=== PATIENT | female | born 1950 | race Caucasian/White ===

== ENCOUNTER → 2016-05-22 | Outpatient (CLI) | payer BC ==
[2016-05-22 16:58] LABS: ALT 174 U/L (9-52); AST 139 U/L (14-36); Alkaline Phosphatase 97 U/L (38-126); Anion Gap 14 mmol/L; Blood Urea Nitrogen 17 mg/dL (7-17); Calcium 9.4 mg/dL (8.4-10.2); Carbon Dioxide 27 mmol/L (22-30); Chloride 101 mmol/L (98-107); Glucose 109 mg/dL (74-99); Non-African American GFR(MDRD) >60 (>60 ml/min/1.73 sqM); Potassium 4.5 mmol/L (3.5-5.1); Sodium 142 mmol/L (137-145); Total Bilirubin 0.7 mg/dL (0.2-1.3); Total Protein 7.9 g/dL (6.3-8.2)
== END | disposition home or self-care (01) ==
LOC: LABWHC1 16:21
PROVIDERS: ATTEND Internal Medicine Gastroenterology
DX: R94.5 Abnormal results of liver function studies (principal)
CPT/HCPCS: 36415; 80053

== ENCOUNTER → 2016-08-19 | Outpatient (CLI) | payer BC ==
[2016-08-19 11:20] LABS: ALT 82 U/L (9-52); AST 70 U/L (14-36); Alkaline Phosphatase 79 U/L (38-126); Anion Gap 12 mmol/L; Blood Urea Nitrogen 12 mg/dL (7-17); Calcium 9.3 mg/dL (8.4-10.2); Carbon Dioxide 29 mmol/L (22-30); Chloride 102 mmol/L (98-107); Glucose 152 mg/dL (74-99); Non-African American GFR(MDRD) >60 (>60 ml/min/1.73 sqM); Potassium 4.3 mmol/L (3.5-5.1); Sodium 143 mmol/L (137-145); Total Bilirubin 0.8 mg/dL (0.2-1.3)
== END ==
LOC: LABWHC1 10:21
PROVIDERS: ATTEND Internal Medicine Gastroenterology
DX: R94.5 Abnormal results of liver function studies (principal)
CPT/HCPCS: 36415; 80053

== ENCOUNTER → 2016-11-30 | Outpatient (CLI) | payer BC ==
--- NOTE | 2016-11-30 10:27 | BD ---
EXAMINATION TYPE: MG DEXA axial skeleton. DATE OF EXAM: 11/30/2016 COMPARISON: Previous study dated 12/27/2014. CLINICAL HISTORY: Postmenopausal female. Height: 64 IN Weight: 195 LBS FRAX RISK QUESTIONS: Alcohol (3 or more units per day): NO Family History (Parent hip fracture): NO Glucocorticoids (More than 3mos): NO (Ex: prednisone, prednisolone, methylprednisolone, dexamethasone, and hydrocortisone). History of Fracture in Adulthood: NO Secondary Osteoporosis: 1. Type 1 Diabetes: NO 2. Hyperthyroidism: NO 3. Menopause before 45: NO 4. Malnutrition: NO 5. Chronic liver disease: NO Rheumatoid Arthritis: NO Current Tobacco Use: NO RISK FACTORS HISTORY OF: Active: YES Postmenopausal woman: AGE 49 Take estrogen and/or progesterone medications: NOT NOW How long: CONTROL AGE 18 - 25 MEDICATIONS: Additional Medications: CALCIUM, VIT D, HIGH BLOOD PRESSURE MEDS, EFFEXOR, Additional History: BREAST CANCER WITH RADIATION EXAM MEASUREMENTS: Bone mineral densitometry was performed using the [employer] System. Bone mineral density as measured about the Lumbar spine is: ----- L1-L4(G/cm2): 1.319 T Score Values are as follows: ----- L2: 1.5 ----- L3: 0.8 ----- L4: 1.5 ----- L1-L4: 1.2 Bone mineral density has: Decreased -0.1% since study of: 12/27/2014 Bone mineral density about the R hip (g/cm2): 0.898 Bone mineral density about the L hip (g/cm2): 0.871 T Score values are as follows: -----R Neck: -1.0 -----L Neck: -1.2 -----R Total: -0.3 -----L Total: -0.3 Bone mineral density has: Decreased -2.0% since study of: 12/27/2014 IMPRESSION: OSTEOPENIA. 10 YEAR FRACTURE RISK: MAJOR OSTEOPOROTIC FRACTURE RISK: 7.8% HIP FRACTURE RISK: 0.6% NOTE: T-SCORE=SD OF THE YOUNG ADULT MEAN.
== END | disposition home or self-care (01) ==
LOC: RADBDWWP 09:19
PROVIDERS: ATTEND Internal Medicine Hematology & Oncology
DX: M85.80 Other specified disorders of bone density and structure, unspecified site (principal); C50.211 Malignant neoplasm of upper-inner quadrant of right female breast; N95.1 Menopausal and female climacteric states; Z79.890 Hormone replacement therapy
CPT/HCPCS: 77080

== ENCOUNTER → 2018-03-01 | Outpatient (CLI) | payer MEDICARE, BC ==
--- NOTE | 2018-03-01 09:55 | MM ---
Reason for exam: additional evaluation requested from prior study. Last mammogram was performed 1 year and 10 months ago. History: Patient is postmenopausal and has history of breast cancer at age 60. Family history of premenopausal breast cancer in sister at age 50. Ultrasound-guided core biopsy of the right breast, February 09, 2011. Lumpectomy of the right breast, 2010. Radiation therapy of the right breast, 2010. Took antineoplastic for 5 years beginning at age 60. Physical Findings: Nurse did not find any significant physical abnormalities on exam. MG 3D Diag Mammo W/Cad PATRICE Bilateral CC and MLO view(s) were taken. Prior study comparison: April 29, 2016, mammogram, performed at [facility]. April 16, 2015, mammogram, performed at [facility]. April 10, 2014, mammogram, performed at [facility]. There are scattered fibroglandular densities. No suspicious abnormality. Post therapy change on the right. No significant new findings when compared with previous films. These results were verbally communicated with the patient and result sheet given to the patient on 03/01/18. ASSESSMENT: Benign, BI-RAD 2 RECOMMENDATION: Follow-up diagnostic mammogram of both breasts in 1 year.
== END | disposition home or self-care (01) ==
LOC: RADMAMWWP 08:52
PROVIDERS: ATTEND Internal Medicine
DX: C50.919 Malignant neoplasm of unspecified site of unspecified female breast (principal)
CPT/HCPCS: 77066; G0279; 77062

== ENCOUNTER → 2019-03-31 | Outpatient (CLI) | payer MEDICARE, BC ==
--- NOTE | 2019-03-31 15:32 | CT ---
EXAMINATION TYPE: CT ChestAbdPelvis w con DATE OF EXAM: 03/31/2019 COMPARISON: CT urogram dated 11/20/2015 HISTORY: Breast cancer. CT DLP: 1892.3 mGycm. Automated Exposure Control for Dose Reduction was Utilized. CONTRAST: CT scan of the thorax, abdomen and pelvis is performed with IV Contrast, patient injected with 100 mL of Isovue M300. FINDINGS: LUNGS: Curvilinear subpleural fibrosis of the peripheral anterolateral right upper lobe is likely pos t radiation change. There is a left lower lobe 4 mm solid pulmonary nodule on series 4 image 36. Ther e is no pleural effusion or pneumothorax seen. The tracheobronchial tree is patent. MEDIASTINUM: There are no greater than 1 cm hilar or mediastinal lymph nodes. No pericardial effusi on is seen. Coronary artery stent is seen. OTHER: There are numerous pathologically enlarged left axillary lymph nodes and subpectoral lymph nod es. The largest measures 4.4 x 3.2 cm. Mildly enlarged submental lymph node is also seen measuring 1. 5 cm. No pathologically enlarged right axillary lymph nodes nor internal mammary lymph nodes. Post th erapy changes of the right breast are seen. LIVER/GB: There is a lobulated contour the liver. Cholecystectomy clips are seen. PANCREAS: Mild pancreatic atrophy. SPLEEN: The spleen is markedly enlarged measuring 22.2 cm in craniocaudal dimension. Splenic varices are seen as well as central mesenteric varices. ADRENALS: No significant abnormality is seen. KIDNEYS: The enlarged spleen displaces the left kidney inferiorly. Delayed images demonstrate numerou s bilateral renal sinus cysts. BOWEL: No dilated large or small bowel. Numerous colonic diverticula are seen without pericolonic fa t stranding. LYMPH NODES: There are abnormal lymph nodes throughout the abdomen and pelvis. Some of the largest ar e seen in the external iliac chain such as on series 3 image 105 on the left measuring 2.6 x 2.6 cm o n the right measuring 3.7 x 1.7 cm. Shotty periaortic lymph nodes are also seen. Pericaval lymph node measures 1.2 cm in short axis. Retrocaval lymph node measures 8 mm on image 83. Left perinephric lym ph node measures 2.7 x 1.1 cm on image 90. External iliac chain adenopathy is also seen measuring up to 3.3 x 2.1 cm on the left and 2.5 x 1.4 cm on the right. OSSEOUS STRUCTURES: Mild diffuse osseous demineralization. Nonspecific sclerotic focus of the left fe moral head on image 116 likely relates to benign bone island. Multilevel degenerative changes of the spine are moderate. OTHER: Pelvic floor relaxation is seen. Uterus appears surgically absent. And mild within the pelvis is likely physiologic in nature. IMPRESSION: 1. Findings are concerning for lymphoma with markedly abnormal left axillary adenopathy, intra-abdomi nal adenopathy, pelvic adenopathy and superficial inguinal adenopathy as well as enlarged submental l ymph node. 2. Marked splenomegaly displacing the left kidney with the spleen measuring 22.2 cm. 3. Solitary left basilar 4 mm solid pulmonary nodule, low suspicion at this time.
== END | disposition home or self-care (01) ==
LOC: RADCTMAIN 12:23
PROVIDERS: ATTEND Internal Medicine Hematology & Oncology
DX: R16.1 Splenomegaly, not elsewhere classified (principal); R59.0 Localized enlarged lymph nodes; Z88.0 Allergy status to penicillin; C50.211 Malignant neoplasm of upper-inner quadrant of right female breast
CPT/HCPCS: 82565; 84520; 71260; 74177; 36415; Q9967 ×2

== ENCOUNTER → 2019-04-10 | Outpatient (CLI) | payer MEDICARE, BC ==
--- NOTE | 2019-04-11 08:08 | MM ---
Reason for exam: additional evaluation requested from prior study. Last mammogram was performed 1 year and 1 month ago. History: Patient is postmenopausal and has history of breast cancer at age 60. Family history of premenopausal breast cancer in sister at age 50. Ultrasound-guided core biopsy of the right breast, February 09, 2011. Lumpectomy of the right breast, 2010. Radiation therapy of the right breast, 2010. Took antineoplastic for 5 years beginning at age 60. Physical Findings: Nurse did not find any significant physical abnormalities on exam. MG 3D Diag Mammo W/Cad PATRICE Bilateral CC and MLO view(s) were taken. Prior study comparison: March 01, 2018, bilateral MG 3d diag mammo w/cad PATRICE. April 29, 2016, mammogram, performed at [facility]. The breast tissue is heterogeneously dense. This may lower the sensitivity of mammography. Finding: There is decreased size and architectural distortion in the right breast consistent with known lumpectomy changes. Previous mammotome biopsy in the left breast. Left axillary abnormal adenopathy correlates with CT 03/31/19. These results were verbally communicated with the patient and result sheet given to the patient on 04/10/19. ASSESSMENT: Highly suggestive of malignancy, BI-RAD 5 Benign, BI-RAD 2 finding in the right breast. Left breast finding is highly suggestive of malignancy, BI-RAD 5. (Left axilla, suspect lymphoma) RECOMMENDATION: Ultrasound core biopsy of the left breast. (Left axilla or other lymph node) Called Dr. Gaffney and Dr. Smith's office with mammographic findings. Patient having biopsy of right neck lymph node on 04/12/19. Dr. Smith aware of multiple enlarged lymph node enlargments. PRELIMINARY REPORT CALLED AND FAXED TO DR. SMITH ON 04/11/19. Follow-up diagnostic mammogram of both breasts in 1 year.
== END | disposition home or self-care (01) ==
LOC: RADMAMWWP 09:54
PROVIDERS: ATTEND Internal Medicine
DX: R92.8 Other abnormal and inconclusive findings on diagnostic imaging of breast (principal); Z85.3 Personal history of malignant neoplasm of breast
CPT/HCPCS: 77066; G0279; 77062

== ENCOUNTER → 2019-04-11 | Outpatient (CLI) | payer MEDICARE, BC ==
--- NOTE | 2019-04-11 10:53 | BD ---
EXAMINATION TYPE: Axial Bone Density DATE OF EXAM: 04/11/2019 COMPARISON: 2017 CLINICAL HISTORY: Personal history of breast cancer. Height: 64 Weight: 205 FRAX RISK QUESTIONS: Alcohol (3 or more units per day): no Family History (Parent hip fracture): no Glucocorticoids (More than 3mos): no (Ex: prednisone, prednisolone, methylprednisolone, dexamethasone, and hydrocortisone). History of Fracture in Adulthood: no Secondary Osteoporosis: 1. Type 1 Diabetes: no 2. Hyperthyroidism: no 3. Menopause before 45: no 4. Malnutrition: no 5. Chronic liver disease: no Rheumatoid Arthritis: no Current Tobacco Use: no RISK FACTORS HISTORY OF: Family History of Osteoporosis: unsure Active: yes Diet low in dairy products/other sources of calcium: no Postmenopausal woman: yes Take estrogen and/or progesterone medications: not now How long: hormonal contraceptives over 5 years Lost more than 2 inches in height since high school: no Frequent falls: no Poor Health: no Hyperparathyroidism: no Adrenal Insufficiency: no MEDICATIONS: Prednisone or other steroids: no Thyroid Medications: yes Which medication: Levothyroxine How Long: one year Osteoporosis Medications: no Additional Medications: blood pressure med , Vitamin D, Metformin Additional History: Breast CA with Radiation, bilateral knee replacements, took Arimidex for about 5 years EXAM MEASUREMENTS: Bone mineral densitometry was performed using the [employer] System. Bone mineral density as measured about the Lumbar spine is: ----- L1-L4(G/cm2): 1.375 T Score Values are as follows: ----- L2: 1.5 ----- L3: 1.3 ----- L4: 2.3 ----- L1-L4: 1.6 Bone mineral density has: Increased 4.4% since study of: 11/30/2016 Bone mineral density about the R hip (g/cm2): 0.964 Bone mineral density about the L hip (g/cm2): 0.856 T Score values are as follows: -----R Neck: -0.5 -----L Neck: -1.3 -----R Total: 0.2 -----L Total: -0.2 Bone mineral density has: Increased 4.0% since study of: 11/30/2016 IMPRESSION: Osteopenia (T Score between -2.5 and -1) remains present femoral neck level left hip. There remains slightly increased risk of fracture and the patient may be considered for treatment. Re-Screen 2-5 years. NOTE: T-SCORE=SD OF THE YOUNG ADULT MEAN.
== END | disposition home or self-care (01) ==
LOC: RADBDWWP 10:13
PROVIDERS: ATTEND Internal Medicine
DX: M85.88 Other specified disorders of bone density and structure, other site (principal)
CPT/HCPCS: 77080

== ENCOUNTER 2019-04-12 09:03 | Day surgery (SDC) | payer MEDICARE, BC ==
[2019-04-12 09:32] VITALS: RESP 16; TEMP 98.2
[2019-04-12 10:54] VITALS: BP 112/66; PULSE 95
--- NOTE | 2019-04-12 10:58 | US ---
ULTRASOUND GUIDED CORE BIOPSY RIGHT SUPRACLAVICULAR LYMPH NODE: CLINICAL HISTORY: Right supraclavicular lymph node FINDINGS: The procedure was explained to the patient. The risks, complications, benefits and alternatives were discussed and any questions were answered. Informed consent was obtained. Patient was placed supin e on the ultrasound table and prepped and draped in the usual sterile fashion. Utilizing a 18 gauge needle, 3 passes were made into the right supraclavicular lymph node. Patient was stable throughout the procedure. Pathology is pending. All elements of maximal barrier technique were utilized. IMPRESSION: 1. Successful ultrasound guided core biopsy right supraclavicular lymph node.
== END 2019-04-12 10:40 | disposition home or self-care (01) ==
LOC: RADPROMAIN 09:03
PROVIDERS: ATTEND Internal Medicine Hematology & Oncology
DX: R59.0 Localized enlarged lymph nodes (principal); R89.7 Abnormal histological findings in specimens from other organs, systems and tissues; C50.919 Malignant neoplasm of unspecified site of unspecified female breast; C80.1 Malignant (primary) neoplasm, unspecified
CPT/HCPCS: 38505; 76942; 88305; 88341; 88342

== ENCOUNTER 2019-04-19 11:52 | Inpatient (IN) | payer MEDICARE, BC ==
[2019-04-19] MEDS ORDERED: IBUPROFEN 600 MG TAB PO STA (12:00)
[2019-04-19] MEDS ORDERED: ACETAMINOPHEN TAB 500 MG TAB PO STA (12:00)
--- NOTE | 2019-04-19 12:03 | ED ---
General Adult HPI - General Chief complaint: Weakness Stated complaint: weakness Time Seen by Provider: 04/19/19 11:55 Source: EMS, RN notes reviewed, old records reviewed Mode of arrival: EMS Limitations: no limitations - History of Present Illness Initial comments: This is a 68-year-old female who presents emergency Department with a recent diagnosis of lymphoma. Patient states she was told to lymphoma yesterday. Patient states she's becoming weaker and weaker over the last 2 weeks but today he wishes to the point where she felt she needed to come to the emergency department. Patient denies any falling. Patient denies any lightheadedness or dizziness. Patient denies any shortness of breath or difficulty breathing. Patient denies any known fever chills per patient denies abdominal pain patient denies nausea vomiting or diarrhea. Patient denies any dysuria hematuria urinary frequency. Patient's only complaint is generalized weakness. states that his is been putting off the visit to the emergency department. - Related Data Home Medications Medication Instructions Recorded Confirmed amLODIPine BESYLATE/BENAZEPRIL 1 cap PO DAILY 10/09/13 04/19/19 [Lotrel 5-40 mg Capsule] Levothyroxine Sodium [Levoxyl] 50 mcg PO DAILY 04/03/19 04/19/19 Rosuvastatin Calcium [Crestor] 5 mg PO DAILY 04/03/19 04/19/19 metFORMIN HCL [Glucophage] 500 mg PO BID 04/03/19 04/19/19 Ibuprofen [Motrin] 800 mg PO TID 04/19/19 04/19/19 Venlafaxine HCl [Effexor] 75 mg PO DAILY 04/19/19 04/19/19 Allergies Allergy/AdvReac Type Severity Reaction Status Date / Time Penicillins Allergy Unknown Rash/Hives Verified 04/19/19 13:06 Review of Systems ROS Statement: Those systems with pertinent positive or pertinent negative responses have been documented in the HPI. ROS Other: All systems not noted in ROS Statement are negative. Past Medical History Past Medical History: Cancer, Diabetes Mellitus, Hyperlipidemia, Hypertension, Thyroid Disorder Additional Past Medical History / Comment(s): right breast CA, lymphoma History of Any Multi-Drug Resistant Organisms: None Reported Past Surgical History: Section, Hysterectomy Additional Past Surgical History / Comment(s): right breast lumpectomy Past Anesthesia/Blood Transfusion Reactions: No Reported Reaction Past Psychological History: No Psychological Hx Reported Smoking Status: Never smoker Past Alcohol Use History: Rare Past Drug Use History: None Reported - Past Family History Father Family Medical History: Myocardial Infarction (VT) Additional Family Medical History / Comment(s): VT times 2, age 52 General Exam - General Exam Comments Initial Comments: GENERAL: Patient is well-developed and well-nourished. Patient is nontoxic and well- hydrated and is in mild distress. ENT: Neck is soft and supple. No significant lymphadenopathy is noted. Oropharynx is clear. Moist mucous membranes. Neck has full range of motion without eliciting any pain. EYES: The sclera were anicteric and conjunctiva were pink and moist. Extraocular movements were intact and pupils were equal round and reactive to light. Eyelids were unremarkable. PULMONARY: Unlabored respirations. Good breath sounds bilaterally. No audible rales rhonchi or wheezing was noted. CARDIOVASCULAR: There is a regular rate and rhythm without any murmurs gallops or rubs. ABDOMEN: Soft and nontender with normal bowel sounds. No palpable organomegaly was noted. There is no palpable pulsatile mass. SKIN: Patient's skin is pale. NEUROLOGIC: Patient is alert and oriented x3. Cranial nerves II through XII are grossly intact. Motor and sensory are also intact. Normal speech, volume and content. Symmetrical smile. MUSCULOSKELETAL: Normal extremities with adequate strength and full range of motion. No lower extremity swelling or edema. No calf tenderness. LYMPHATICS: No significant lymphadenopathy is noted PSYCHIATRIC: Normal psychiatric evaluation. Limitations: no limitations Course Vital Signs 04/19/19 04/19/19 04/19/19 11:54 12:00 12:30 Temperature 99.6 F Pulse Rate 109 H 100 106 H Respiratory 16 20 26 H Rate Blood Pressure 91/34 91/34 104/51 O2 Sat by Pulse 99 98 99 Oximetry 04/19/19 13:17 Temperature 98.5 F Pulse Rate Respiratory Rate Blood Pressure O2 Sat by Pulse Oximetry Medical Decision Making - Medical Decision Making EKG shows sinus tachycardia at [address] interval 154 QRS is 82 QT interval 02 QTC is 43. Patient's EKG shows no ST segment elevation or depression or T wave abnormalities are noted. Chest x-ray shows no acute abnormality. Patient had an elevated lactic acid 4.3 no infection was found and is thought to be secondary to poor perfusion because of the low hemoglobin. I spoke with Dr. Gaffney he agreed to admit the patient admitted the patient wrote admitting orders. I did CBCs every 6 hours and I gave the patient 2 units of packed red blood cells. - Lab Data Result diagrams: 04/19/19 12:10 04/19/19 12:10 Lab Results 04/19/19 04/19/19 04/19/19 Range/Units 12:10 12:10 12:10 WBC 4.5 (3.8-10.6) k/uL RBC 1.67 L (3.80-5.40) m/uL Hgb 5.3 L* (11.4-16.0) gm/dL Hct 16.3 L* (34.0-46.0) % MCV 97.5 (80.0-100.0) fL MCH 31.9 (25.0-35.0) pg MCHC 32.8 (31.0-37.0) g/dL RDW 17.9 H (11.5-15.5) % Plt Count 132 L (150-450) k/uL Neutrophils % 85 % Lymphocytes % 6 % Monocytes % 6 % Eosinophils % 1 % Basophils % 0 % Neutrophils # 3.8 (1.3-7.7) k/uL Lymphocytes # 0.3 L (1.0-4.8) k/uL Monocytes # 0.3 (0-1.0) k/uL Eosinophils # 0.0 (0-0.7) k/uL Basophils # 0.0 (0-0.2) k/uL Anisocytosis Slight Macrocytosis Slight PT (9.0-12.0) sec INR (<1.2) APTT (22.0-30.0) sec Sodium 133 L (137-145) mmol/L Potassium 5.6 H (3.5-5.1) mmol/L Chloride 103 (98-107) mmol/L Carbon Dioxide 20 L (22-30) mmol/L Anion Gap 10 mmol/L BUN 54 H (7-17) mg/dL Creatinine 1.21 H (0.52-1.04) mg/dL Est GFR (CKD-EPI)AfAm 54 (>60 ml/min/1.73 sqM) Est GFR (CKD-EPI)NonAf 47 (>60 ml/min/1.73 sqM) Glucose 139 H (74-99) mg/dL Plasma Lactic Acid Carloz 4.3 H* (0.7-2.0) mmol/L Calcium 11.1 H (8.4-10.2) mg/dL Total Bilirubin 2.8 H (0.2-1.3) mg/dL AST 57 H (14-36) U/L ALT 27 (9-52) U/L Alkaline Phosphatase 63 (38-126) U/L Total Protein 6.3 (6.3-8.2) g/dL Albumin 2.9 L (3.5-5.0) g/dL Urine Color Urine Appearance (Clear) Urine pH (5.0-8.0) Ur Specific Solsberry (1.001-1.035) Urine Protein (Negative) Urine Glucose (UA) (Negative) Urine Ketones (Negative) Urine Blood (Negative) Urine Nitrite (Negative) Urine Bilirubin (Negative) Urine Urobilinogen (<2.0) mg/dL Ur Leukocyte Esterase (Negative) Urine WBC (0-5) /hpf Ur Squamous Epith Cells (0-4) /hpf Amorphous Sediment (None) /hpf Urine Bacteria (None) /hpf Urine Mucus (None) /hpf Stool Occult Blood (Negative) Influenza Type A RNA (Not Detectd) Influenza Type B (PCR) (Not Detectd) Blood Type Blood Type Recheck Bld Type Recheck Status Antibody Screen Crossmatch Spec Expiration Date 04/19/19 04/19/19 04/19/19 Range/Units 12:10 12:10 12:15 WBC (3.8-10.6) k/uL RBC (3.80-5.40) m/uL Hgb (11.4-16.0) gm/dL Hct (34.0-46.0) % MCV (80.0-100.0) fL MCH (25.0-35.0) pg MCHC (31.0-37.0) g/dL RDW (11.5-15.5) % Plt Count (150-450) k/uL Neutrophils % % Lymphocytes % % Monocytes % % Eosinophils % % Basophils % % Neutrophils # (1.3-7.7) k/uL Lymphocytes # (1.0-4.8) k/uL Monocytes # (0-1.0) k/uL Eosinophils # (0-0.7) k/uL Basophils # (0-0.2) k/uL Anisocytosis Macrocytosis PT 12.9 H (9.0-12.0) sec INR 1.3 H (<1.2) APTT 26.3 (22.0-30.0) sec Sodium (137-145) mmol/L Potassium (3.5-5.1) mmol/L Chloride (98-107) mmol/L Carbon Dioxide (22-30) mmol/L Anion Gap mmol/L BUN (7-17) mg/dL Creatinine (0.52-1.04) mg/dL Est GFR (CKD-EPI)AfAm (>60 ml/min/1.73 sqM) Est GFR (CKD-EPI)NonAf (>60 ml/min/1.73 sqM) Glucose (74-99) mg/dL Plasma Lactic Acid Carloz (0.7-2.0) mmol/L Calcium (8.4-10.2) mg/dL Total Bilirubin (0.2-1.3) mg/dL AST (14-36) U/L ALT (9-52) U/L Alkaline Phosphatase (38-126) U/L Total Protein (6.3-8.2) g/dL Albumin (3.5-5.0) g/dL Urine Color Yellow Urine Appearance Cloudy H (Clear) Urine pH 5.0 (5.0-8.0) Ur Specific Solsberry 1.013 (1.001-1.035) Urine Protein Trace H (Negative) Urine Glucose (UA) Negative (Negative) Urine Ketones Negative (Negative) Urine Blood Negative (Negative) Urine Nitrite Negative (Negative) Urine Bilirubin Negative (Negative) Urine Urobilinogen <2.0 (<2.0) mg/dL Ur Leukocyte Esterase Negative (Negative) Urine WBC 1 (0-5) /hpf Ur Squamous Epith Cells 1 (0-4) /hpf Amorphous Sediment Rare H (None) /hpf Urine Bacteria Rare H (None) /hpf Urine Mucus Rare H (None) /hpf Stool Occult Blood (Negative) Influenza Type A RNA (Not Detectd) Influenza Type B (PCR) (Not Detectd) Blood Type A Positive Blood Type Recheck A Pos Bld Type Recheck Status No Antibody Screen POSITIVE Crossmatch See Detail Spec Expiration Date 04/22/2019230904/19/19 04/19/19 Range/Units 12:52 13:14 WBC (3.8-10.6) k/uL RBC (3.80-5.40) m/uL Hgb (11.4-16.0) gm/dL Hct (34.0-46.0) % MCV (80.0-100.0) fL MCH (25.0-35.0) pg MCHC (31.0-37.0) g/dL RDW (11.5-15.5) % Plt Count (150-450) k/uL Neutrophils % % Lymphocytes % % Monocytes % % Eosinophils % % Basophils % % Neutrophils # (1.3-7.7) k/uL Lymphocytes # (1.0-4.8) k/uL Monocytes # (0-1.0) k/uL Eosinophils # (0-0.7) k/uL Basophils # (0-0.2) k/uL Anisocytosis Macrocytosis PT (9.0-12.0) sec INR (<1.2) APTT (22.0-30.0) sec Sodium (137-145) mmol/L Potassium (3.5-5.1) mmol/L Chloride (98-107) mmol/L Carbon Dioxide (22-30) mmol/L Anion Gap mmol/L BUN (7-17) mg/dL Creatinine (0.52-1.04) mg/dL Est GFR (CKD-EPI)AfAm (>60 ml/min/1.73 sqM) Est GFR (CKD-EPI)NonAf (>60 ml/min/1.73 sqM) Glucose (74-99) mg/dL Plasma Lactic Acid Carloz (0.7-2.0) mmol/L Calcium (8.4-10.2) mg/dL Total Bilirubin (0.2-1.3) mg/dL AST (14-36) U/L ALT (9-52) U/L Alkaline Phosphatase (38-126) U/L Total Protein (6.3-8.2) g/dL Albumin (3.5-5.0) g/dL Urine Color Urine Appearance (Clear) Urine pH (5.0-8.0) Ur Specific [place] (1.001-1.035) Urine Protein (Negative) Urine Glucose (UA) (Negative) Urine Ketones (Negative) Urine Blood (Negative) Urine Nitrite (Negative) Urine Bilirubin (Negative) Urine Urobilinogen (<2.0) mg/dL Ur Leukocyte Esterase (Negative) Urine WBC (0-5) /hpf Ur Squamous Epith Cells (0-4) /hpf Amorphous Sediment (None) /hpf Urine Bacteria (None) /hpf Urine Mucus (None) /hpf Stool Occult Blood Negative (Negative) Influenza Type A RNA Not Detected (Not Detectd) Influenza Type B (PCR) Not Detected (Not Detectd) Blood Type Blood Type Recheck Bld Type Recheck Status Antibody Screen Crossmatch Spec Expiration Date Critical Care Time Critical Care Time: Yes Total Critical Care Time: 35 Disposition Clinical Impression: Generalized weakness, Anemia, History of lymphoma, Hyperkalemia, Hyponatremia, Renal insufficiency, Lactic acidosis Disposition: ADMITTED IP TO THIS [facility] Time of Disposition: 13:55
[2019-04-19] MEDS: SODIUM CHLORIDE 0.9% 500 ML 500 ML IV SCH ×2 (12:24→12:27)
[2019-04-19 12:33] LABS: Anisocytosis Slight; Basophils % (A) 0 %; Eosinophils % (A) 1 %; Lymphocytes # (A) 0.3 k/uL (1.0-4.8); Lymphocytes % (A) 6 %; MCH 31.9 pg (25.0-35.0); MCHC 32.8 g/dL (31.0-37.0); MCV 97.5 fL (80.0-100.0); Macrocytosis Slight; Mean Platelet Volume 9.1; Monocytes # (A) 0.3 k/uL (0-1.0); Monocytes % (A) 6 %; Neutrophils # (A) 3.8 k/uL (1.3-7.7); Neutrophils % (A) 85 %; Platelet Count 132 k/uL (150-450); RBC 1.67 m/uL (3.80-5.40); RDW 17.9 % (11.5-15.5); WBC 4.5 k/uL (3.8-10.6)
[2019-04-19 12:37] LABS: INR 1.3 (<1.2); Partial Thromboplastin Time 26.3 sec (22.0-30.0); Prothrombin Time 12.9 sec (9.0-12.0)
[2019-04-19 12:41] LABS: HCT 16.3 % (34.0-46.0); HGB 5.3 gm/dL (11.4-16.0)
[2019-04-19 12:42] LABS: Amorphous Sediment,Urine Rare /hpf; Appearance,Urine Cloudy (Clear); Bacteria,Urine Rare /hpf; Bilirubin,Urine Negative (Negative); Blood,Urine Negative (Negative); Color,Urine Yellow; Glucose,Urine (UA) Negative (Negative); Ketones,Urine Negative (Negative); Leukocyte Esterase,Urine Negative (Negative); Mucus,Urine Rare /hpf; Nitrite,Urine Negative (Negative); Protein,Urine Trace (Negative); Specific Gravity,Urine 1.013 (1.001-1.035); Squamous Epithelial Cell,Urine 1 /hpf (0-4); Urobilinogen,Urine <2.0 mg/dL (<2.0); WBC,Urine 1 /hpf (0-5)
[2019-04-19 12:56] LABS: Albumin 2.9 g/dL (3.5-5.0); Calcium 11.1 mg/dL (8.4-10.2); Potassium 5.6 mmol/L (3.5-5.1); Total Bilirubin 2.8 mg/dL (0.2-1.3); Total Protein 6.3 g/dL (6.3-8.2)
--- NOTE | 2019-04-19 13:02 | XR ---
EXAMINATION TYPE: XR chest 2V DATE OF EXAM: 04/19/2019 COMPARISON: 01/15/2016 HISTORY: Shortness of breath TECHNIQUE: Frontal and lateral views of the chest are obtained. FINDINGS: Scattered senescent parenchymal changes noted. No evidence for infiltrate. No evidence for atelectasis. Heart size is stable. Mediastinal structures are stable and grossly unremarkable. No evidence for hilar prominence. Degenerative changes dorsal spine. IMPRESSION: 1. No evidence for acute pulmonary disease.
[2019-04-19] MEDS ORDERED: SODIUM CHLORIDE 0.9% 1,000 ML IV ONE (13:55)
[2019-04-19 15:15] LABS: Reticulocyte % 1.7 % (0.5-2.0)
[2019-04-19] MEDS ORDERED: HYDROCORTISONE SUCCINATE 100 MG/2 ML VIAL IV STA (15:25)
--- NOTE | 2019-04-19 15:41 | P.HPIM ---
History of Present Illness H&P Date: 04/19/19 Chief Complaint: T-cell lymphoma, acute symptomatic anemia, possible AIHA This is a 68-year-old female one of my patient with a previous medical history significant for hypertension and hypertensive cardiovascular disease, hyperlipidemia, new diagnosis of diabetes mellitus type 2, history of breast cancer status post right lumpectomy with radiation therapy, diverticulosis, hypothyroidism, patient developed to have a a small lymph node in the back of her neck about 3 month ago and she was evaluated in my office at that time the lymph nodes were freely movable and small in size and eventually the lymph node got better for a bit and subsequently developed to have a significant lymphadenopathy in the right cervical and submandibular bilaterally along with right supraclavicular lymph node and left axillary and left inguinal lymph node, she went to Dr. Augustin's office for follow-up for her breast cancer surveillance and the patient underwent a biopsy of the supra clavicular lymph node on the right side that was done last week and the report just Back yesterday with T- cell lymphoma positive for CD30 was supposed to follow-up with her supervisor fusing room/oncologist on Wednesday for a treatment plan, the biopsy was sent to the [facility] for further recommendation and evaluation as well he shouldn't has been declining over the last week or so with poor appetite and increased edema in upper and lower extremities with increased abdominal distention and fatigue and generalized Megace and weakness and dark urine according to the patient I spoke with her daughter about 2 days ago and asked her to bring her to the ER if she is not improving patient showed up to the ER today and she was found to have hemoglobin of 5 significantly elevated LDH and bilirubin along with liver function test haptoglobin was still pending there were some concern of hemolytic anemia in view of her lymphoma, hematology oncology consult added and blood tests were ordered labs were drawn and the patient will be receiving 2 units of packed red blood cells after the antibodies are cleared through the blood bank ([facility]). Patient appears to be somewhat hypotensive a bit short of breath, she did receive 2 L of IV fluid at this point in time her blood pressure continues to be low, Lactic acid was high she would be admitted to the intensive care unit with consultation to Dr. Hurley for further evaluation recommendation. Review of Systems Constitutional: Reports anorexia, Reports fatigue, Reports lethargy, Reports malaise, Reports sweats, Reports weakness Eyes: denies blurred vision, denies bulging eye, denies decreased vision Ears: deny: decreased hearing Ears, nose, mouth and throat: Denies dysphagia, Denies neck lump, Denies swelling in throat, Denies sore throat Breasts: right: as per HPI (Right lumpectomy.) Cardiovascular: Reports decreased exercise tolerance, Reports dyspnea on exertion, Reports leg edema, Reports lightheadedness, Reports rapid heart beat, Reports shortness of breath, Denies chest pain, Denies syncope Respiratory: Denies congestion, Denies cough, Denies cough with sputum, Denies home oxygen, Denies sleep apnea, Denies snoring, Denies wheezing Gastrointestinal: Reports bloating, Reports early satiety, Reports loss of ap petite, Denies abdominal pain, Denies BRBPR, Denies change in bowel habits, Denies coffee ground emesis, Denies heartburn, Denies hematemesis, Denies hematochezia, Denies melena, Denies nausea, Denies vomiting Genitourinary: Denies dysuria, Denies hematuria Menstruation: Reports postmenopausal Musculoskeletal: Reports muscle weakness, Denies frequent falls Musculoskeletal: bilateral: ankle swelling, foot swelling, absent: ankle pain, ankle stiffness, as per HPI, elbow pain, elbow stiffness, elbow swelling, foot pain, foot stiffness, hand pain, hand stiffness, hand swelling, hip pain, hip stiffness, hip swelling, knee pain, knee stiffness, knee swelling, shoulder pain, shoulder stiffness, shoulder swelling, wrist pain, wrist stiffness, wrist swelling Integumentary: Denies pruritus, Denies rash Neurological: Denies numbness, Denies weakness Psychiatric: Reports anxiety, Reports depression, Denies sadness/tearfulness, Denies sleep disturbances, Denies suicidal ideation Endocrine: Denies fatigue, Denies weight change Past Medical History Past Medical History: Cancer, Diabetes Mellitus, Hyperlipidemia, Hypertension, Thyroid Disorder Additional Past Medical History / Comment(s): Pt states she was told 04/18/19 that she has lymphoma-no treatment plan yet, recent hands/legs/feet edema, R breast cancer with lumpectomy and radiation treatments, NIDDM type II, hypothyroid, diverticular disease History of Any Multi-Drug Resistant Organisms: None Reported Past Surgical History: Breast Surgery, Section, Hysterectomy Additional Past Surgical History / Comment(s): 04/12/19 R supraclavicular lymph node core biopsy, right breast lumpectomy, colonoscopy Past Anesthesia/Blood Transfusion Reactions: No Reported Reaction Past Psychological History: No Psychological Hx Reported Additional Psychological History / Comment(s): Pt resides with her spouse. She is independent. She states lately though, she has not been driving, her spouse has been doing the driving. Smoking Status: Never smoker Past Alcohol Use History: Rare Past Drug Use History: None Reported - Past Family History Father Family Medical History: Myocardial Infarction (GA) (Father at age of 52 from CAD and congestive heart failure.) Additional Family Medical History / Comment(s): GA times 2-first GA at the age of 35yrs and from 2nd GA at the age of age 52 Mother Family Medical History: Cancer (Mother at the age of 74 from pink cancer.) Additional Family Medical History / Comment(s): Mother of pancreatic cancer in her 70s. Brother(s) History Unknown: Yes Sister(s) Family Medical History: Cancer (Patient has 2 sisters one of them with breast cancer.) Daughter(s) Family Medical History: No Reported History (Patient has one daughter who is an ICU nurse no major medical problems.) Son(s) Family Medical History: No Reported History (Patient has one son no major medical problems.) Medications and Allergies Home Medications Medication Instructions Recorded Confirmed Type amLODIPine BESYLATE/BENAZEPRIL 1 cap PO DAILY 10/09/13 04/19/19 History [Lotrel 5-40 mg Capsule] Levothyroxine Sodium [Levoxyl] 50 mcg PO DAILY 04/03/19 04/19/19 History Rosuvastatin Calcium [Crestor] 5 mg PO DAILY 04/03/19 04/19/19 History metFORMIN HCL [Glucophage] 500 mg PO BID 04/03/19 04/19/19 History Ibuprofen [Motrin] 800 mg PO TID 04/19/19 04/19/19 History Venlafaxine HCl [Effexor] 75 mg PO DAILY 04/19/19 04/19/19 History Allergies Allergy/AdvReac Type Severity Reaction Status Date / Time Penicillins Allergy Unknown Rash/Hives Verified 04/19/19 13:06 Physical Exam Vitals: Vital Signs Temp Pulse Resp BP Pulse Ox 04/19/19 15:00 89 20 83/39 96 12/11/19 14:30 91 20 94/50 96 04/19/19 14:00 94 20 94/44 90 L 04/19/19 13:30 93 20 96/51 94 L 04/19/19 13:17 98.5 F 04/19/19 13:00 100 20 101/46 94 L 04/19/19 12:30 106 H 26 H 104/51 99 04/19/19 12:00 100 20 91/34 98 04/19/19 11:54 99.6 F 109 H 16 91/34 99 Intake and Output 04/19/19 04/19/19 04/19/19 06:59 14:59 22:59 Other: Weight 88.451 kg 88.451 kg - Constitutional General appearance: average body habitus, mild distress - EENT Eyes: anicteric sclerae, EOMI, PERRLA, no ptosis, scleral icterus, normal appearance ENT: hearing grossly normal, NA/AT, normal oropharynx, no thrush Ears: bilateral: normal - Neck Neck: lymphadenopathy (Significant lymphadenopathy and the right posterior cervical submandibular right supraclavicular left axillary left inguinal .) Thyroid: bilateral: enlarged - Respiratory Respiratory: bilateral: diminished, negative: dullness, rales, rhonchi, wheezing, prolonged expiration - Cardiovascular Rhythm: regular Heart sounds: normal: S1, S2 Abnormal Heart Sounds: systolic murmur, no S3 Gallop, no S4 Gallop - Gastrointestinal General gastrointestinal: distended, hepatomegaly, organomegaly, soft, splenomegaly, no tenderness, no umbilical hernia, no ventral hernia - Integumentary Integumentary: jaundiced, pale - Neurologic Neurologic: CNII-XII intact - Musculoskeletal Musculoskeletal: gait normal, generalized weakness - Psychiatric Psychiatric: A&O x's 3, appropriate affect, intact judgment & insight Results CBC & Chem 7: 04/19/19 12:10 04/19/19 12:10 Labs: Abnormal Lab Results - Last 24 Hours (Table) 04/19/19 04/19/19 04/19/19 Range/Units 12:10 12:10 12:10 RBC 1.67 L (3.80-5.40) m/uL Hgb 5.3 L* (11.4-16.0) gm/dL Hct 16.3 L* (34.0-46.0) % RDW 17.9 H (11.5-15.5) % Plt Count 132 L (150-450) k/uL Lymphocytes # 0.3 L (1.0-4.8) k/uL PT (9.0-12.0) sec INR (<1.2) Sodium 133 L (137-145) mmol/L Potassium 5.6 H (3.5-5.1) mmol/L Carbon Dioxide 20 L (22-30) mmol/L BUN 54 H (7-17) mg/dL Creatinine 1.21 H (0.52-1.04) mg/dL Glucose 139 H (74-99) mg/dL Plasma Lactic Acid Carloz 4.3 H* (0.7-2.0) mmol/L Calcium 11.1 H (8.4-10.2) mg/dL Total Bilirubin 2.8 H (0.2-1.3) mg/dL AST 57 H (14-36) U/L Lactate Dehydrogenase (313-618) U/L Albumin 2.9 L (3.5-5.0) g/dL Urine Appearance (Clear) Urine Protein (Negative) Amorphous Sediment (None) /hpf Urine Bacteria (None) /hpf Urine Mucus (None) /hpf Crossmatch 04/19/19 04/19/19 04/19/19 Range/Units 12:10 12:10 12:10 RBC (3.80-5.40) m/uL Hgb (11.4-16.0) gm/dL Hct (34.0-46.0) % RDW (11.5-15.5) % Plt Count (150-450) k/uL Lymphocytes # (1.0-4.8) k/uL PT 12.9 H (9.0-12.0) sec INR 1.3 H (<1.2) Sodium (137-145) mmol/L Potassium (3.5-5.1) mmol/L Carbon Dioxide (22-30) mmol/L BUN (7-17) mg/dL Creatinine (0.52-1.04) mg/dL Glucose (74-99) mg/dL Plasma Lactic Acid Carloz (0.7-2.0) mmol/L Calcium (8.4-10.2) mg/dL Total Bilirubin (0.2-1.3) mg/dL AST (14-36) U/L Lactate Dehydrogenase 1160 H (313-618) U/L Albumin (3.5-5.0) g/dL Urine Appearance (Clear) Urine Protein (Negative) Amorphous Sediment (None) /hpf Urine Bacteria (None) /hpf Urine Mucus (None) /hpf Crossmatch See Detail 04/19/19 Range/Units 12:15 RBC (3.80-5.40) m/uL Hgb (11.4-16.0) gm/dL Hct (34.0-46.0) % RDW (11.5-15.5) % Plt Count (150-450) k/uL Lymphocytes # (1.0-4.8) k/uL PT (9.0-12.0) sec INR (<1.2) Sodium (137-145) mmol/L Potassium (3.5-5.1) mmol/L Carbon Dioxide (22-30) mmol/L BUN (7-17) mg/dL Creatinine (0.52-1.04) mg/dL Glucose (74-99) mg/dL Plasma Lactic Acid Carloz (0.7-2.0) mmol/L Calcium (8.4-10.2) mg/dL Total Bilirubin (0.2-1.3) mg/dL AST (14-36) U/L Lactate Dehydrogenase (313-618) U/L Albumin (3.5-5.0) g/dL Urine Appearance Cloudy H (Clear) Urine Protein Trace H (Negative) Amorphous Sediment Rare H (None) /hpf Urine Bacteria Rare H (None) /hpf Urine Mucus Rare H (None) /hpf Crossmatch Thrombosis Risk Factor Assmnt - DVT/VTE Prophylaxis DVT/VTE Prophylaxis: Mechanical Prophylaxis ordered - Choose All That Apply Any of the Below Risk Factors Present?: Yes Each Factor Represents 1 point: Obesity (BMI >25) Other Risk Factors: Yes Each Risk Factor Represents 2 Points: Age 61-74 years, Malignancy Other congenital or acquired thrombophilia - If yes, enter type in comment: No Thrombosis Risk Factor Assessment Total Risk Factor Score: 5 Thrombosis Risk Factor Assessment Level: High Risk Assessment and Plan Assessment: Assessment and plan: 1. Severe symptomatic anemia with a new diagnosis of T-cell lymphoma CD30(final pathologic report is not available yet he was sent to the [facility] for second opinion) with possible AIHA due to her malignancy. Haptoglobin is still pending LDH is quite elevated bilirubin is elevated await JC, await hematology input prior to blood transfusion. Hem-Onc Consult with Dr. Gonzalez. 2. Acute symptomatic anemia. Type and cross 2 units of packed red blood cells clear hemolysis by hematology prior to any blood transfusion. 3. T-cell lymphoma CD30 positive. Likely will require chemotherapy await hematology oncology input. 4. Hypertension and hypertensive cardio vascular disease currently hypotensive discontinue Lotrel for now. 5. Hypotension with hypoperfusion creating lactic acidosis. Continue IV fluid resuscitation, admitted to the intensive care unit, consult Dr. Hurley. 6. Diabetes mellitus type 2. New onset. Discontinue metformin. 7. Hyperlipidemia. Discontinue Crestor for now. 8. Hypothyroidism. Continue Synthroid 50 g orally once every day. 9. Diverticulosis. Colonoscopy is up-to-date. 10. Depression. Currently on Effexor XR 75 mg orally once every day. 11. DVT prophylaxis. Bilateral knee-high THA hose. 12. GI prophylaxis. Start the patient on Protonix 40 mg IV push every 24 hours. 13. Admit to inpatient estimated length of stay 2 midnights. 14. Patient is full code.
[2019-04-19] MEDS ORDERED: LEVOFLOXACIN 500MG-D5W PMX 500 MG in DEXTROSE/WATER 1 100ML.BAG IVPB SCH (17:00)
[2019-04-19] MEDS ORDERED: NALOXONE 0.4 MG/ML 1 ML VIAL IV PRN (17:29)
[2019-04-19] MEDS ORDERED: SODIUM CHLORIDE 0.9% 1,000 ML IV SCH (17:30)
[2019-04-19 17:34] LABS: Anisocytosis Slight; Basophils % (A) 0 %; Eosinophils % (A) 1 %; Hypochromasia Moderate; Lymphocytes # (A) 0.2 k/uL (1.0-4.8); Lymphocytes % (A) 6 %; MCH 31.2 pg (25.0-35.0); MCHC 30.4 g/dL (31.0-37.0); Macrocytosis Moderate; Mean Platelet Volume 8.7; Monocytes # (A) 0.2 k/uL (0-1.0); Monocytes % (A) 5 %; Neutrophils # (A) 2.8 k/uL (1.3-7.7); Neutrophils % (A) 86 %; Platelet Count 127 k/uL (150-450); RBC 1.59 m/uL (3.80-5.40); RDW 18.3 % (11.5-15.5); WBC 3.3 k/uL (3.8-10.6)
[2019-04-19 17:35] LABS: HCT 16.3 % (34.0-46.0)
[2019-04-19 17:48] LABS: MCV 102.7 fL (80.0-100.0)
[2019-04-19 17:48] LABS: Uric Acid 9.6 mg/dL (3.7-7.4)
[2019-04-19 17:54] LABS: Glucose,Whole Blood 136 mg/dL (75-99)
--- NOTE | 2019-04-19 17:55 | P.CONS ---
History of Present Illness - Reason for Consult Consult date: 04/19/19 recurrent lymphoma Requesting physician: Kulwinder Harvey - Chief Complaint weakness - History of Present Illness Mrs. Galvan is a very pleasant 68-year-old female patient of Dr. Gonzalez with a past medical history that includes a T1 cN0 right breast cancer diagnosed in February 2011, treated with lung To in, sentinel lymph node biopsy with radiation therapy, Ronnie X continued until November 2017. No disease recurrence. Patient then noticed enlarging cervical lymph nodes in December 2018. She had a CBC at her PCP Dr. Gaffney's office which showed mild leukopenia, thrombocytopenia which was new. She had no other symptoms. She saw Dr. Gonzalez on 03/29. He examined her and ordered a CT CAP and US guided core biopsy of the right supraclavicular lymph node CHRISTEN. CT showing abnormal lymph nodes throughout the abdomen and pelvis, including axillary, intra-abdominal, pelvic and superficial inguinal adenopathy, enlarged submental lymph node, and splenomegaly. Had a biopsy of the right anterior cervical lymph node on 04/12, path was positive for a CD30 positive atypical lymphoid infiltrate, high proliferation index of 70- 80%, the case has been forwarded on to [facility] for subtype classification. Pt was due to see Dr. Gonzalez on Wednesday for plan of care. Patient's family states that she became progressively weak over the last 2-3 days, they're becoming more and more concern so they brought her to the emergency department. On admission patient was noted to have a hemoglobin of 5.3. She denies fever, dysphagia, odynophagia, chest pain, she is SOB, on exertion, no nausea, vomiting, abd pain, nose bleeds, black or bloody stool, diarrhea, constipation, dysuria, hematuria. Review of Systems 14 point ROS is negative except as stated in HPI Past Medical History Past Medical History: Cancer, Diabetes Mellitus, Hyperlipidemia, Hypertension, Thyroid Disorder Additional Past Medical History / Comment(s): Pt states she was told 04/18/19 that she has lymphoma-no treatment plan yet, recent hands/legs/feet edema, R breast cancer with lumpectomy and radiation treatments, NIDDM type II, hypothyroid, diverticular disease History of Any Multi-Drug Resistant Organisms: None Reported Past Surgical History: Breast Surgery, Section, Hysterectomy Additional Past Surgical History / Comment(s): 04/12/19 R supraclavicular lymph node core biopsy, right breast lumpectomy, colonoscopy Past Anesthesia/Blood Transfusion Reactions: No Reported Reaction Past Psychological History: No Psychological Hx Reported Additional Psychological History / Comment(s): Pt resides with her spouse. She is independent. She states lately though, she has not been driving, her spouse has been doing the driving. Smoking Status: Never smoker Past Alcohol Use History: Rare Past Drug Use History: None Reported - Past Family History Father Family Medical History: Myocardial Infarction (PR) (Father at age of 52 from CAD and congestive heart failure.) Additional Family Medical History / Comment(s): PR times 2-first PR at the age of 35yrs and from 2nd PR at the age of age 52 Mother Family Medical History: Cancer (Mother at the age of 74 from pink cancer.) Additional Family Medical History / Comment(s): Mother of pancreatic cancer in her 70s. Brother(s) History Unknown: Yes Sister(s) Family Medical History: Cancer (Patient has 2 sisters one of them with breast cancer.) Daughter(s) Family Medical History: No Reported History (Patient has one daughter who is an ICU nurse no major medical problems.) Son(s) Family Medical History: No Reported History (Patient has one son no major medical problems.) Medications and Allergies Home Medications Medication Instructions Recorded Confirmed Type amLODIPine BESYLATE/BENAZEPRIL 1 cap PO DAILY 10/09/13 04/19/19 History [Lotrel 5-40 mg Capsule] Levothyroxine Sodium [Levoxyl] 50 mcg PO DAILY 04/03/19 04/19/19 History Rosuvastatin Calcium [Crestor] 5 mg PO DAILY 04/03/19 04/19/19 History metFORMIN HCL [Glucophage] 500 mg PO BID 04/03/19 04/19/19 History Ibuprofen [Motrin] 800 mg PO TID 04/19/19 04/19/19 History Venlafaxine HCl [Effexor] 75 mg PO DAILY 04/19/19 04/19/19 History Allergies Allergy/AdvReac Type Severity Reaction Status Date / Time Penicillins Allergy Unknown Rash/Hives Verified 04/19/19 13:06 Physical Exam Vitals: Vital Signs Temp Pulse Resp BP Pulse Ox 04/19/19 17:00 87 19 101/49 96 04/19/19 16:38 97.2 F L 04/19/19 16:30 88 20 97/52 99 04/19/19 16:00 89 20 84/38 98 04/19/19 15:30 89 20 82/40 97 04/19/19 15:00 89 20 83/39 96 04/19/19 14:30 91 20 94/50 96 04/19/19 14:00 94 20 94/44 90 L 04/19/19 13:30 93 20 96/51 94 L 04/19/19 13:17 98.5 F 04/19/19 13:00 100 20 101/46 94 L 04/19/19 12:30 106 H 26 H 104/51 99 04/19/19 12:00 100 20 91/34 98 04/19/19 11:54 99.6 F 109 H 16 91/34 99 Intake and Output 04/19/19 04/19/19 04/19/19 06:59 14:59 22:59 Other: Weight 88.451 kg 102.1 kg - Constitutional Considering patient's abnormal labs, she is surprisingly alert, oriented and responsive, completely appropriate General appearance: cooperative, no acute distress, obese - EENT Eyes: EOMI, scleral icterus ENT: hearing grossly normal, normal oropharynx - Neck largest is right posterior cervical at 5cm, soft, fixed Neck: lymphadenopathy - Respiratory Respiratory: bilateral: CTA - Cardiovascular Rhythm: regular Heart sounds: normal: S1, S2 Abnormal Heart Sounds: no systolic murmur, no diastolic murmur, no rub, no S3 Gallop, no S4 Gallop, no click, no other leg Peripheral Edema: bilateral: Trace - Gastrointestinal General gastrointestinal: no absent bowel sounds, no decreased bowel sounds, no distended, no hepatomegaly, no hyperactive bowel sounds, normal bowel sounds, no organomegaly, no rigid, no scaphoid, soft, splenomegaly, no tenderness, no umbilical hernia, no ventral hernia - Neurologic Neurologic: CNII-XII intact - Musculoskeletal Musculoskeletal: generalized weakness, strength equal bilaterally - Psychiatric Psychiatric: A&O x's 3, appropriate affect, intact judgment & insight Results CBC & Chem 7: 04/19/19 12:10 04/19/19 12:10 Labs: Abnormal Lab Results - Last 24 Hours (Table) 04/19/19 04/19/19 04/19/19 Range/Units 12:10 12:10 12:10 RBC 1.67 L (3.80-5.40) m/uL Hgb 5.3 L* (11.4-16.0) gm/dL Hct 16.3 L* (34.0-46.0) % RDW 17.9 H (11.5-15.5) % Plt Count 132 L (150-450) k/uL Lymphocytes # 0.3 L (1.0-4.8) k/uL PT (9.0-12.0) sec INR (<1.2) Sodium 133 L (137-145) mmol/L Potassium 5.6 H (3.5-5.1) mmol/L Carbon Dioxide 20 L (22-30) mmol/L BUN 54 H (7-17) mg/dL Creatinine 1.21 H (0.52-1.04) mg/dL Glucose 139 H (74-99) mg/dL Plasma Lactic Acid Carloz 4.3 H* (0.7-2.0) mmol/L Calcium 11.1 H (8.4-10.2) mg/dL Total Bilirubin 2.8 H (0.2-1.3) mg/dL AST 57 H (14-36) U/L Lactate Dehydrogenase (313-618) U/L Albumin 2.9 L (3.5-5.0) g/dL Urine Appearance (Clear) Urine Protein (Negative) Amorphous Sediment (None) /hpf Urine Bacteria (None) /hpf Urine Mucus (None) /hpf Crossmatch 04/19/19 04/19/19 04/19/19 Range/Units 12:10 12:10 12:10 RBC (3.80-5.40) m/uL Hgb (11.4-16.0) gm/dL Hct (34.0-46.0) % RDW (11.5-15.5) % Plt Count (150-450) k/uL Lymphocytes # (1.0-4.8) k/uL PT 12.9 H (9.0-12.0) sec INR 1.3 H (<1.2) Sodium (137-145) mmol/L Potassium (3.5-5.1) mmol/L Carbon Dioxide (22-30) mmol/L BUN (7-17) mg/dL Creatinine (0.52-1.04) mg/dL Glucose (74-99) mg/dL Plasma Lactic Acid Carloz (0.7-2.0) mmol/L Calcium (8.4-10.2) mg/dL Total Bilirubin (0.2-1.3) mg/dL AST (14-36) U/L Lactate Dehydrogenase 1160 H (313-618) U/L Albumin (3.5-5.0) g/dL Urine Appearance (Clear) Urine Protein (Negative) Amorphous Sediment (None) /hpf Urine Bacteria (None) /hpf Urine Mucus (None) /hpf Crossmatch See Detail 04/19/19 04/19/19 Range/Units 12:15 13:52 RBC (3.80-5.40) m/uL Hgb (11.4-16.0) gm/dL Hct (34.0-46.0) % RDW (11.5-15.5) % Plt Count (150-450) k/uL Lymphocytes # (1.0-4.8) k/uL PT (9.0-12.0) sec INR (<1.2) Sodium (137-145) mmol/L Potassium (3.5-5.1) mmol/L Carbon Dioxide (22-30) mmol/L BUN (7-17) mg/dL Creatinine (0.52-1.04) mg/dL Glucose (74-99) mg/dL Plasma Lactic Acid Carloz (0.7-2.0) mmol/L Calcium (8.4-10.2) mg/dL Total Bilirubin (0.2-1.3) mg/dL AST (14-36) U/L Lactate Dehydrogenase (313-618) U/L Albumin (3.5-5.0) g/dL Urine Appearance Cloudy H (Clear) Urine Protein Trace H (Negative) Amorphous Sediment Rare H (None) /hpf Urine Bacteria Rare H (None) /hpf Urine Mucus Rare H (None) /hpf Crossmatch See Detail Chest x-ray: report reviewed Assessment and Plan (1) Lymphoma Narrative/Plan: This is a brand-new diagnosis for the patient. She hadn't even received the biopsy results from the 4th yet. I did review with her results most consistent with lymphoma, it is been sent to the [facility] for subtype classification. Dr. Gonzalez has the results but, is pending the classification to begin treatment. I reviewed with her the CT scan that was done showing massive widespread adenopathy. Pulse dose Decadron started pending further classificat ion, further treatment recommendations to follow. Current Visit: Yes Status: Acute Priority: High Code(s): C85.90 - NON- HODGKIN LYMPHOMA, UNSPECIFIED, UNSPECIFIED SITE SNOMED Code(s): 951058158 (2) At high risk of tumor lysis syndrome Narrative/Plan: Patient is at very high risk of spontaneous tumor lysis, some of her labs currently are suggestive of that, stat TLS labs have been ordered. We will order elitek if appropriate. Current Visit: Yes Status: Acute Priority: High Code(s): Z91.89 - OTH PERSONAL RISK FACTORS, NOT ELSEWHERE CLASSIFIED SNOMED Code(s): 930461529 (3) Anemia Narrative/Plan: Either a result of marrow involvement with lymphoma or hemolysis. Labs been ordered, patient is going to be transfused as soon as able, pulse dose Decadron ordered Current Visit: Yes Status: Acute Priority: High Code(s): D64.9 - ANEMIA, UNSPECIFIED SNOMED Code(s): 515648730
[2019-04-19] MEDS: INSULIN ASPART (NovoLOG) 100 UNIT/ML VIAL SQ SCH ×2 (18:00→21:07)
[2019-04-19] MEDS: DEXAMETHASONE 4 MG TAB PO SCH (18:10)
--- NOTE | 2019-04-19 18:10 | CONS ---
CONSULTATION PULMONARY/CRITICAL CARE CONSULTATION: DATE OF SERVICE: 04/19/2019 This is a 68-year-old female who presented to the emergency department via EMS. She had a recent diagnosis of lymphoma. It has not been classified as yet. Specimens were sent to the [facility] after being initially evaluated here at this hospital. She had a right supraclavicular lymph node biopsy. Anyway, she apparently for the last couple of days has been not feeling herself. It has been going on for longer than that, but over the last couple days it has gotten much worse. She admits to being very weak. She has not really had much to eat or drink. In addition, she notices that she is feeling very fatigued. In addition, she has some swelling in her legs. Anyway, for that reason she was brought into the emergency room to be evaluated. The patient was seen in the emergency room by Dr. Harvey. It was noted that her hemoglobin was quite low at 5.3. In addition, although her initial blood pressures were stable, her blood pressure started to drop just by giving some fluids. Her blood pressure currently is about 85 systolic. In addition, her lactic acid was elevated, and she manifests some signs and symptoms of sepsis syndrome. For that reason, the patient will be admitted to the intensive care unit and observed. The patient sees Dr. Gaffney as a primary. Her oncologist is Dr. Gonzalez. Dr. Beltran was called, but does not know this patient. As mentioned, her lymph node biopsy was initially interpreted here and sent out to [facility] for further evaluation and classification. HOME MEDICATIONS: Her home medications include amlodipine/benazepril, i.e., Lotrel, levothyroxine, Crestor, metformin and Effexor. She also takes Motrin. ALLERGIES: PENICILLIN. MEDICAL HISTORY: Medical history includes a recent diagnosis of lymphoma made by lymph node biopsy in the right supraclavicular space. She also has a history of hypothyroidism, hypertension, hyperlipidemia and diabetes. Other medical problems include right breast cancer. SURGICAL HISTORY: Surgical history includes a , hysterectomy, and right breast lumpectomy. SOCIAL HISTORY: Social history is significant in that she is a lifelong nonsmoker. She drinks rarely. No illicit drug use. FAMILY HISTORY: Positive for father who had myocardial infarction. He at a young age of 52. REVIEW OF SYSTEMS: CONSTITUTIONAL: Weakness and fatigue. Decreased energy. Poor appetite. NEUROLOGIC: Negative. HEENT: Negative. CARDIOVASCULAR: Negative. PULMONARY: Mild shortness of breath. GI: Negative. : Negative. RHEUMATOLOGIC: Negative. IMMUNOLOGIC: Negative. ENDOCRINOLOGIC: Negative. DERMATOLOGIC: Negative. PHYSICAL EXAMINATION: VITAL SIGNS: Current vital signs are reviewed. Her blood pressure is about 83 systolic over 39 diastolic. Mean 53. Saturations are 96%. Heart rate about 89 beats per minute. Temperature 98.5. Respiratory rate is 20. GENERAL APPEARANCE: She currently appears very pale and fatigued. Lying flat in bed. No pain. HEENT: HEENT examination is grossly unremarkable. NECK: Neck examination reveals full range of motion. There is significant diffuse adenopathy. No neck vein distention. No thyromegaly. CARDIOVASCULAR: Cardiovascular examination reveals regular rhythm and rate. Heart rate 89. S1, S2 normal. LUNGS: Lungs reveal mostly clear breath sounds. No wheezes or rhonchi. Breath sounds equal. ABDOMEN: Soft. EXTREMITIES: Extremities reveal some mild edema. SKIN: Very pale. NEUROLOGIC: Neurologic examination is brief but nonfocal. LABS: Reviewed. White count 4.5, hemoglobin 5.3, hematocrit 16.3, platelet count 132,000. Her PT is 12.9, INR 1.3, PTT is 26.3. Sodium 133, potassium 5.6, chloride 103, CO2 20. Anion gap is 10. BUN and creatinine are 54 and 1.21. These labs are consistent with a non-anion gap metabolic acidosis. Her glucose is 139. Lactic acid 4.3, calcium 11.1, total bilirubin 2.8, AST 57, LDH 1160. Her urine is yellow and cloudy. Urine pH is 5.0, specific gravity 1.013, trace protein, rare bacteria and mucus. Her stools for occult blood were negative. Influenza studies were negative. IMAGING: Chest x-ray shows no evidence of any active pulmonary disease. ASSESSMENT: 1. Profound weakness, likely related to anemia and/or recent diagnosis of lymphoma. 2. Recent right supraclavicular lymph node biopsy, consistent with lymphoproliferative disorder, yet to be fully classified; specimens at the [facility]. 3. Rule out sepsis. 4. Mild lactic acidemia. 5. Non-anion gap metabolic acidosis. 6. History of hypertension. 7. History of hyperlipidemia. 8. Diabetes mellitus. 9. Hypothyroidism. 10.Mild thrombocytopenia. 11.Prerenal azotemia. 12.Hypercalcemia. PLAN: The patient will be transferred up to the ICU. We will continue to give her fluids and possibly pressors. Additional recommendations and suggestions are forthcoming. Will order a random cortisol on her. The patient will be started on some antibiotics empirically. No additional recommendations are made. Prognosis is guarded. We did see the patient in the emergency room. MMSURENDRA / LISAN: [id number] /
[2019-04-19] MEDS ORDERED: RASBURICASE 6 MG in SODIUM CHLORIDE 0.9% 46 ML IV ONE (18:30)
[2019-04-19 18:36] LABS: % Iron Saturation 64.29 (12.00-45.00)
[2019-04-19 19:10] LABS: Ferritin 469.2 ng/mL (10.0-291.0)
[2019-04-19 19:27] LABS: T4, Free (Free Thyroxine) 1.12 ng/dL (0.78-2.19)
[2019-04-19 21:09] LABS: Glucose,Whole Blood 187 mg/dL (75-99)
[2019-04-19 22:07] LABS: Anisocytosis Slight; MCH 32.3 pg (25.0-35.0); MCHC 32.3 g/dL (31.0-37.0); MCV 99.9 fL (80.0-100.0); Macrocytosis Slight; Mean Platelet Volume 9.2; Platelet Count 113 k/uL (150-450); RBC 1.56 m/uL (3.80-5.40); RDW 18.4 % (11.5-15.5)
[2019-04-19 22:10] LABS: HCT 15.5 % (34.0-46.0)
[2019-04-20 06:09] LABS: Calcium 10.2 mg/dL (8.4-10.2); Magnesium 2.1 mg/dL (1.6-2.3); Phosphorus 5.6 mg/dL (2.5-4.5); Potassium 5.9 mmol/L (3.5-5.1)
[2019-04-20] MEDS ORDERED: LEVOTHYROXINE 50 MCG TAB PO SCH (06:30)
[2019-04-20] MEDS: INSULIN ASPART (NovoLOG) 100 UNIT/ML VIAL SQ SCH ×4 (07:01→21:10)
[2019-04-20 07:04] LABS: Glucose,Whole Blood 207 mg/dL (75-99)
[2019-04-20] MEDS: VENLAFAXINE HCL 75 MG TAB PO SCH (08:08)
[2019-04-20] MEDS: PANTOPRAZOLE 40 MG/10 ML VIAL IVP SCH (08:08)
[2019-04-20] MEDS: DEXAMETHASONE 4 MG TAB PO SCH (08:08)
--- NOTE | 2019-04-20 09:38 | PN ---
PROGRESS NOTE DATE OF SERVICE: 04/20/2019 This is a 68-year-old female who we saw yesterday in the emergency department. She has a recent diagnosis of lymphoma, made by lymph node biopsy in the right supraclavicular space. It was unclassified here by our pathologist and specimens were sent to [facility] for their opinion. She has not received any treatment as yet. She came into the emergency room because she has just not been feeling herself. For the last number of days, she has been feeling weak and fatigued. She was noted in the emergency room to have a hemoglobin of 5.3. She has really not had much to eat or drink. She has some lower extremity edema. The patient was seen in the ER. Blood pressures were a bit low and the patient was admitted to the ICU for further monitoring. Her lactic acid was elevated. Her primary care doctor is Dr. Gaffney. Her oncologist is Dr. Gonzalez. Dr. Beltran was called, but does not really know the patient. Somebody from Oncology did see the patient yesterday. Her medical history is positive for hypothyroidism, hypertension, hyperlipidemia, and diabetes. She also has a prior history of breast cancer. Currently, she is not feeling much better. She is on O2 at 2 L. She is getting saline at 75 mL an hour. Current vital signs are reviewed. Temperature is 97.6, heart rate 89, respiratory rate 24, blood pressure 96/47 mean 63, saturations are 98%. Appears in no acute distress, pale. No respiratory distress. No conversational dyspnea, use of accessory muscles or audible wheezing. HEENT: Examination is grossly unremarkable. Nasal O2 in place. NECK: Supple. Full range of motion. No adenopathy. Neck veins are flat. CARDIOVASCULAR examination reveals regular rhythm rate. S1, S2 normal. No S3, S4, or murmur. LUNGS: Reveal mostly clear breath sounds. No wheezes or rhonchi. ABDOMEN: Soft. Bowel sounds are heard. EXTREMITIES: Intact. Mild edema. No cyanosis or clubbing. SKIN: Without rash. NEUROLOGIC: Examination is brief but nonfocal. LABS: Reviewed. Currently, sodium 132, potassium 5.9, chloride 106, CO2 is 19, anion gap is 7. BUN and creatinine were 66 and 1.28. Glucose is 197. Plasma lactic acid was 2.8, calcium 10.2, phosphorus 5.6, magnesium 2.1. From yesterday, her LDH was 1160. Her albumin 2.9. TSH was 7.130. Cortisol level was greater than 123. Urine appears to be negative. Influenza studies were negative uric acid was elevated at 9.6. A chest x-ray showed no acute disease MEDICATIONS: Reviewed. She is on Decadron, insulin Levaquin, levothyroxine, Narcan, Protonix and Effexor. ASSESSMENT: 1. Recent diagnosis by lymph node biopsy of lymphoma, yet to be fully classified, with specimens being currently evaluated at [facility]. 2. Profound weakness, likely secondary to anemia and her recent diagnosis of lymphoma. 3. Rule out sepsis. 4. Rule out tumor lysis syndrome. 5. Mild lactic acidemia. 6. Non-anion gap metabolic acidosis. 7. History of hypertension. 8. Hyperlipidemia. 9. Diabetes mellitus. 10.Hypothyroidism, not well controlled. 11.Mild thrombocytopenia. 12.Prerenal azotemia. 13.Hypercalcemia. 14.Hyperuricemia. PLAN: The patient has been seen by Oncology. I will increase her Synthroid dose. Await input from Oncology further. Additional recommendations and suggestions forthcoming. Patient was placed on antibiotics and dissipation of infection. Cultures are thus far pending or negative. Prognosis is guarded. Will continue to follow. Her daughter works here in the ICU as an ICU nurse. She is aware. MMODL / IJN: [id number] /
[2019-04-20 10:37] LABS: Albumin 2.6 g/dL (3.5-5.0); Total Bilirubin 2.4 mg/dL (0.2-1.3); Total Protein 5.7 g/dL (6.3-8.2)
--- NOTE | 2019-04-20 11:19 | CDI ---
Documentation Clarification Form Date: 04/20/2019 11:07:31 AM From: Brandy McgeeKahnELAN jefferson, CCDS Admit Date: 04/19/2019 1:55:00 PM Patient Name: Mariela Galvan Visit Number: [id number] Discharge Date: ATTENTION: The Clinical Documentation Specialists (CDI) and [facility] Coding Staff appreciate your assistance in clarifying documentation. Please respond to the clarification below the line at the bottom and electronically sign. The CDI & [facility] Coding staff will review the response and follow-up if needed. Please note: Queries are made part of the Legal Health Record. If you have any questions, please contact the author of this message via ITS. Dr. Messi Gaffney: Anemia without further specificity is documented in the History & Physical, the Pulmonary/Critical Care consult, the Oncology consult and a subsequent progress note. 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 Hx of breast CA status post lumpectomy with radiation therapy, DM II, Hypertension & Hypertensive cardiovascular disease, Hyperlipidemia, Diverticulosis & Hypothyroidism. Clinical indicators: Presented with severe weakness & fatigue, diagnosed with anemia, nos, Lactic acidosis, Metabolic acidosis & mild Thrombocytopenia. Hematology: 3.3*, RBC 1.59*, Hgb 5.0, Hct 16.3, Pl Ct 127*. Chemistry: Na 133*, K 5.6^, BUN 54^, Cr 1.21^, Glucose 139^, Lactic Acid 3.1^^, Calcium 11.1^ Treatment: Admit to ICU, Transfused 1 unit PRBCs, IV fl rate 75, IV SoluCortef, IV Levaquin, IV Rasburicase, Insulin Sliding Scale. In your professional opinion, can you please clarify if these findings signify one of the following conditions? Anemia, please specify etiology Pancytopenia due to, please specify: Pancytopenia, etiology unknown Thrombocytopenia, please specify etiology: Other anemia, please specify: Unable to determine (Last Revision: February 2017) ___Pancytopenia due to T-Cell Lymphoma unknown subtype MTDD
--- NOTE | 2019-04-20 11:45 | P.PN ---
Subjective Progress Note Date: 04/20/19 Principal diagnosis: Symptomatic anemia In follow-up today patient is alert and oriented, she denies bleeding, chest pain, states weakness, short of breath with any activity, no chest pain. Objective - Vital Signs Vital signs: Vital Signs Temp 98 F 04/20/19 11:04 Pulse 85 04/20/19 11:04 Resp 20 04/20/19 11:04 BP 99/53 04/20/19 11:04 Pulse Ox 95 04/20/19 11:04 Intake & Output 04/19/19 04/20/19 04/20/19 18:59 06:59 18:59 Intake Total 250 1065 465 Output Total 625 150 Balance 250 440 315 Weight 102.1 kg 105.2 kg 105.2 kg Intake: IV 250 825 225 Levofloxacin 500Mg-D5w 100 Pmx 500 mg In Dextrose/ Water 1 100ml.bag @ 100 mls/hr IVPB Q24H [facility]I Rx#: [id number] Sodium Chloride 0.9% 1, 150 825 225 000 ml @ 75 mls/hr IV . [id number] AD[facility]I Rx#:[id number] Oral 240 240 Blood Product 0 Rc Irr As1 Unit 0 [id number] Output: Urine 625 150 Other: Voiding Method Bedside Commode Bedside Commode Bedside Commode # Voids 1 - Constitutional General appearance: Present: average body habitus, cooperative, no acute dis tress - EENT Eyes: Present: EOMI, scleral icterus ENT: Present: hearing grossly normal, normal oropharynx - Neck Neck: Present: lymphadenopathy - Respiratory Respiratory: bilateral: CTA - Cardiovascular Heart sounds: normal: S1, S2 Abnormal Heart Sounds: Absent: systolic murmur, diastolic murmur, rub, S3 Gallop, S4 Gallop, click, other - Peripheral edema leg Peripheral Edema: bilateral: None - Gastrointestinal General gastrointestinal: Present: normal bowel sounds, soft - Integumentary Integumentary: Present: pale - Neurologic Neurologic: Present: CNII-XII intact - Musculoskeletal Musculoskeletal: Present: generalized weakness, strength equal bilaterally - Psychiatric Psychiatric: Present: A&O x's 3, appropriate affect, intact judgment & insight - Labs CBC & Chem 7: 04/19/19 21:11 04/20/19 05:06 Labs: Abnormal Lab Results - Last 24 Hours (Table) 04/19/19 04/19/19 04/19/19 Range/Units 12:10 12:10 12:10 WBC (3.8-10.6) k/uL RBC 1.67 L (3.80-5.40) m/uL Hgb 5.3 L* (11.4-16.0) gm/dL Hct 16.3 L* (34.0-46.0) % MCV (80.0-100.0) fL MCHC (31.0-37.0) g/dL RDW 17.9 H (11.5-15.5) % Plt Count 132 L (150-450) k/uL Lymphocytes # 0.3 L (1.0-4.8) k/uL PT (9.0-12.0) sec INR (<1.2) Sodium 133 L (137-145) mmol/L Potassium 5.6 H (3.5-5.1) mmol/L Carbon Dioxide 20 L (22-30) mmol/L BUN 54 H (7-17) mg/dL Creatinine 1.21 H (0.52-1.04) mg/dL Glucose 139 H (74-99) mg/dL POC Glucose (mg/dL) (75-99) mg/dL Plasma Lactic Acid Carloz 4.3 H* (0.7-2.0) mmol/L Uric Acid (3.7-7.4) mg/dL Calcium 11.1 H (8.4-10.2) mg/dL Phosphorus (2.5-4.5) mg/dL Iron (50-170) ug/dL % Saturation (12.00-45.00) Ferritin (10.0-291.0) ng/mL Total Bilirubin 2.8 H (0.2-1.3) mg/dL AST 57 H (14-36) U/L Lactate Dehydrogenase (313-618) U/L Total Protein (6.3-8.2) g/dL Albumin 2.9 L (3.5-5.0) g/dL TSH (0.465-4.680) mIU/L Urine Appearance (Clear) Urine Protein (Negative) Amorphous Sediment (None) /hpf Urine Bacteria (None) /hpf Urine Mucus (None) /hpf Crossmatch 04/19/19 04/19/19 04/19/19 Range/Units 12:10 12:10 12:10 WBC (3.8-10.6) k/uL RBC (3.80-5.40) m/uL Hgb (11.4-16.0) gm/dL Hct (34.0-46.0) % MCV (80.0-100.0) fL MCHC (31.0-37.0) g/dL RDW (11.5-15.5) % Plt Count (150-450) k/uL Lymphocytes # (1.0-4.8) k/uL PT 12.9 H (9.0-12.0) sec INR 1.3 H (<1.2) Sodium (137-145) mmol/L Potassium (3.5-5.1) mmol/L Carbon Dioxide (22-30) mmol/L BUN (7-17) mg/dL Creatinine (0.52-1.04) mg/dL Glucose (74-99) mg/dL POC Glucose (mg/dL) (75-99) mg/dL Plasma Lactic Acid Carloz (0.7-2.0) mmol/L Uric Acid (3.7-7.4) mg/dL Calcium (8.4-10.2) mg/dL Phosphorus (2.5-4.5) mg/dL Iron 180 H (50-170) ug/dL % Saturation 64.29 H (12.00-45.00) Ferritin 469.2 H (10.0-291.0) ng/mL Total Bilirubin (0.2-1.3) mg/dL AST (14-36) U/L Lactate Dehydrogenase 1160 H (313-618) U/L Total Protein (6.3-8.2) g/dL Albumin (3.5-5.0) g/dL TSH (0.465-4.680) mIU/L Urine Appearance (Clear) Urine Protein (Negative) Amorphous Sediment (None) /hpf Urine Bacteria (None) /hpf Urine Mucus (None) /hpf Crossmatch See Detail 04/19/19 04/19/19 04/19/19 Range/Units 12:15 13:52 14:46 WBC (3.8-10.6) k/uL RBC (3.80-5.40) m/uL Hgb (11.4-16.0) gm/dL Hct (34.0-46.0) % MCV (80.0-100.0) fL MCHC (31.0-37.0) g/dL RDW (11.5-15.5) % Plt Count (150-450) k/uL Lymphocytes # (1.0-4.8) k/uL PT (9.0-12.0) sec INR (<1.2) Sodium (137-145) mmol/L Potassium (3.5-5.1) mmol/L Carbon Dioxide (22-30) mmol/L BUN (7-17) mg/dL Creatinine (0.52-1.04) mg/dL Glucose (74-99) mg/dL POC Glucose (mg/dL) (75-99) mg/dL Plasma Lactic Acid Carloz 3.1 H* (0.7-2.0) mmol/L Uric Acid (3.7-7.4) mg/dL Calcium (8.4-10.2) mg/dL Phosphorus (2.5-4.5) mg/dL Iron (50-170) ug/dL % Saturation (12.00-45.00) Ferritin (10.0-291.0) ng/mL Total Bilirubin (0.2-1.3) mg/dL AST (14-36) U/L Lactate Dehydrogenase (313-618) U/L Total Protein (6.3-8.2) g/dL Albumin (3.5-5.0) g/dL TSH (0.465-4.680) mIU/L Urine Appearance Cloudy H (Clear) Urine Protein Trace H (Negative) Amorphous Sediment Rare H (None) /hpf Urine Bacteria Rare H (None) /hpf Urine Mucus Rare H (None) /hpf Crossmatch See Detail 04/19/19 04/19/19 04/19/19 Range/Units 14:50 16:55 17:43 WBC 3.3 L (3.8-10.6) k/uL RBC 1.59 L (3.80-5.40) m/uL Hgb 5.0 L* (11.4-16.0) gm/dL Hct 16.3 L* (34.0-46.0) % MCV 102.7 H D (80.0-100.0) fL MCHC 30.4 L (31.0-37.0) g/dL RDW 18.3 H (11.5-15.5) % Plt Count 127 L (150-450) k/uL Lymphocytes # 0.2 L (1.0-4.8) k/uL PT (9.0-12.0) sec INR (<1.2) Sodium (137-145) mmol/L Potassium (3.5-5.1) mmol/L Carbon Dioxide (22-30) mmol/L BUN (7-17) mg/dL Creatinine (0.52-1.04) mg/dL Glucose (74-99) mg/dL POC Glucose (mg/dL) 136 H (75-99) mg/dL Plasma Lactic Acid Carloz (0.7-2.0) mmol/L Uric Acid 9.6 H (3.7-7.4) mg/dL Calcium (8.4-10.2) mg/dL Phosphorus 5.0 H (2.5-4.5) mg/dL Iron (50-170) ug/dL % Saturation (12.00-45.00) Ferritin (10.0-291.0) ng/mL Total Bilirubin (0.2-1.3) mg/dL AST (14-36) U/L Lactate Dehydrogenase (313-618) U/L Total Protein (6.3-8.2) g/dL Albumin (3.5-5.0) g/dL TSH 7.130 H (0.465-4.680) mIU/L Urine Appearance (Clear) Urine Protein (Negative) Amorphous Sediment (None) /hpf Urine Bacteria (None) /hpf Urine Mucus (None) /hpf Crossmatch 04/19/19 04/19/19 04/19/19 Range/Units 20:57 21:11 21:11 WBC (3.8-10.6) k/uL RBC 1.56 L (3.80-5.40) m/uL Hgb 5.0 L* (11.4-16.0) gm/dL Hct 15.5 L* (34.0-46.0) % MCV (80.0-100.0) fL MCHC (31.0-37.0) g/dL RDW 18.4 H (11.5-15.5) % Plt Count 113 L (150-450) k/uL Lymphocytes # (1.0-4.8) k/uL PT (9.0-12.0) sec INR (<1.2) Sodium (137-145) mmol/L Potassium (3.5-5.1) mmol/L Carbon Dioxide (22-30) mmol/L BUN (7-17) mg/dL Creatinine (0.52-1.04) mg/dL Glucose (74-99) mg/dL POC Glucose (mg/dL) 187 H (75-99) mg/dL Plasma Lactic Acid Carloz 3.0 H* (0.7-2.0) mmol/L Uric Acid (3.7-7.4) mg/dL Calcium (8.4-10.2) mg/dL Phosphorus (2.5-4.5) mg/dL Iron (50-170) ug/dL % Saturation (12.00-45.00) Ferritin (10.0-291.0) ng/mL Total Bilirubin (0.2-1.3) mg/dL AST (14-36) U/L Lactate Dehydrogenase (313-618) U/L Total Protein (6.3-8.2) g/dL Albumin (3.5-5.0) g/dL TSH (0.465-4.680) mIU/L Urine Appearance (Clear) Urine Protein (Negative) Amorphous Sediment (None) /hpf Urine Bacteria (None) /hpf Urine Mucus (None) /hpf Crossmatch 04/20/19 04/20/19 04/20/19 Range/Units 01:08 05:06 05:49 WBC (3.8-10.6) k/uL RBC (3.80-5.40) m/uL Hgb (11.4-16.0) gm/dL Hct (34.0-46.0) % MCV (80.0-100.0) fL MCHC (31.0-37.0) g/dL RDW (11.5-15.5) % Plt Count (150-450) k/uL Lymphocytes # (1.0-4.8) k/uL PT (9.0-12.0) sec INR (<1.2) Sodium 132 L (137-145) mmol/L Potassium 5.9 H (3.5-5.1) mmol/L Carbon Dioxide 19 L (22-30) mmol/L BUN 66 H (7-17) mg/dL Creatinine 1.28 H (0.52-1.04) mg/dL Glucose 197 H (74-99) mg/dL POC Glucose (mg/dL) (75-99) mg/dL Plasma Lactic Acid Carloz 2.8 H* 2.8 H* (0.7-2.0) mmol/L Uric Acid (3.7-7.4) mg/dL Calcium (8.4-10.2) mg/dL Phosphorus 5.6 H (2.5-4.5) mg/dL Iron (50-170) ug/dL % Saturation (12.00-45.00) Ferritin (10.0-291.0) ng/mL Total Bilirubin 2.4 H (0.2-1.3) mg/dL AST 47 H (14-36) U/L Lactate Dehydrogenase (313-618) U/L Total Protein 5.7 L (6.3-8.2) g/dL Albumin 2.6 L (3.5-5.0) g/dL TSH (0.465-4.680) mIU/L Urine Appearance (Clear) Urine Protein (Negative) Amorphous Sediment (None) /hpf Urine Bacteria (None) /hpf Urine Mucus (None) /hpf Crossmatch 04/20/19 04/20/19 Range/Units 06:52 09:57 WBC (3.8-10.6) k/uL RBC (3.80-5.40) m/uL Hgb (11.4-16.0) gm/dL Hct (34.0-46.0) % MCV (80.0-100.0) fL MCHC (31.0-37.0) g/dL RDW (11.5-15.5) % Plt Count (150-450) k/uL Lymphocytes # (1.0-4.8) k/uL PT (9.0-12.0) sec INR (<1.2) Sodium (137-145) mmol/L Potassium (3.5-5.1) mmol/L Carbon Dioxide (22-30) mmol/L BUN (7-17) mg/dL Creatinine (0.52-1.04) mg/dL Glucose (74-99) mg/dL POC Glucose (mg/dL) 207 H (75-99) mg/dL Plasma Lactic Acid Carloz 3.4 H* (0.7-2.0) mmol/L Uric Acid (3.7-7.4) mg/dL Calcium (8.4-10.2) mg/dL Phosphorus (2.5-4.5) mg/dL Iron (50-170) ug/dL % Saturation (12.00-45.00) Ferritin (10.0-291.0) ng/mL Total Bilirubin (0.2-1.3) mg/dL AST (14-36) U/L Lactate Dehydrogenase (313-618) U/L Total Protein (6.3-8.2) g/dL Albumin (3.5-5.0) g/dL TSH (0.465-4.680) mIU/L Urine Appearance (Clear) Urine Protein (Negative) Amorphous Sediment (None) /hpf Urine Bacteria (None) /hpf Urine Mucus (None) /hpf Crossmatch Assessment and Plan (1) Lymphoma Narrative/Plan: This is a brand-new diagnosis for the patient. She hadn't even received the biopsy results from the 4th yet. Reviewed with her today that the results are most consistent with lymphoma, it is been sent to the [facility] for subtype classification, pending classification to begin treatment. Reviewed with her and her the CT scan that was done showing massive widespread adenopathy. Pulse dose Decadron started yesterday, further treatment recommendations to follow. Current Visit: Yes Status: Acute Priority: High Code(s): C85.90 - NON- HODGKIN LYMPHOMA, UNSPECIFIED, UNSPECIFIED SITE SNOMED Code(s): 011134071 (2) At high risk of tumor lysis syndrome Narrative/Plan: Elevated uric acid and phosphorus, suggestive of TLS. Dose of Elitek was ordered last evening. Labs will be repeated daily. Further doses of Elitek based on results. Current Visit: Yes Status: Acute Priority: High Code(s): Z91.89 - OTH PERSONAL RISK FACTORS, NOT ELSEWHERE CLASSIFIED SNOMED Code(s): 999039600 (3) Anemia Narrative/Plan: Either a result of marrow involvement with lymphoma or hemolysis, former most suspected. Labs still pending. Antibody found, patient is going to be transfused as soon as compatible blood/least incompatible blood available. Pulse dose Decadron ordered Current Visit: Yes Status: Acute Priority: High Code(s): D64.9 - ANEMIA, UNSPECIFIED SNOMED Code(s): 924239601 Plan: Doctor attests: I performed a history and physical examination of this patient, developed impression and plan of care, discussed with dictator. I agree with dictators note, documented as a scribe.
[2019-04-20 11:52] LABS: Glucose,Whole Blood 212 mg/dL (75-99)
[2019-04-20 11:55] LABS: Phosphorus 5.6 mg/dL (2.5-4.5); Uric Acid 5.3 mg/dL (3.7-7.4)
--- NOTE | 2019-04-20 14:25 | P.PN ---
Subjective Progress Note Date: 04/20/19 This is a 68-year-old female one of my patient with a previous medical history significant for hypertension and hypertensive cardiovascular disease, hyperlipidemia, new diagnosis of diabetes mellitus type 2, history of breast cancer status post right lumpectomy with radiation therapy, diverticulosis, hypothyroidism, patient developed to have a a small lymph node in the back of her neck about 3 month ago and she was evaluated in my office at that time the lymph nodes were freely movable and small in size and eventually the lymph node got better for a bit and subsequently developed to have a significant lymphadenopathy in the right cervical and submandibular bilaterally along with right supraclavicular lymph node and left axillary and left inguinal lymph node, she went to Dr. Augustin's office for follow-up for her breast cancer surveillance and the patient underwent a biopsy of the supra clavicular lymph node on the right side that was done last week and the report just Back yesterday with T- cell lymphoma positive for CD30 was supposed to follow-up with her shake packer/oncologist on Wednesday for a treatment plan, the biopsy was sent to the [facility] for further recommendation and evaluation as well he shouldn't has been declining over the last week or so with poor appetite and increased edema in upper and lower extremities with increased abdominal distention and fatigue and generalized Megace and weakness and dark urine according to the patient I spoke with her daughter about 2 days ago and asked her to bring her to the ER if she is not improving patient showed up to the ER today and she was found to have hemoglobin of 5 significantly elevated LDH and bilirubin along with liver function test haptoglobin was still pending there were some concern of hemolytic anemia in view of her lymphoma, hematology oncology consult added and blood tests were ordered labs were drawn and the patient will be receiving 2 units of packed red blood cells after the antibodies are cleared through the blood bank ([facility]). Patient appears to be somewhat hypotensive a bit short of breath, she did receive 2 L of IV fluid at this point in time her blood pressure continues to be low, Lactic acid was high she would be admitted to the intensive care unit with consultation to Dr. Hurley for further evaluation recommendation. 04/20: Patient has been seen by oncology regarding lymphoma. They are waiting for subtype classification of pathology. Patient was started on Decadron. Lab work has been ordered for tumor lysis syndrome and patient was given 1 dose of Elitek. Patient is followed by Dr. Hurley as well. He has increased levothyroxine to 75 g. Repeat lab work reveals sodium 132, potassium 5.9, CO2 is 19, BUN 1266, creatinine 1.28. Repeat lactic acid is 3.4, phosphorus 5.6. Repeat uric acid normal at 5.3. Patient continues to shortness of breath with exertion. She complains of lightheadedness. She is waiting for blood transfusion. She denies having any chest pain or headache. Blood sugars are elevated running 197 at 212. Levemir will be added. Review of Systems Constitutional: Reports anorexia, Reports fatigue, Reports lethargy, Reports malaise, Reports sweats, Reports weakness Eyes: denies blurred vision, denies decreased vision Ears: deny: decreased hearing Ears, nose, mouth and throat: Denies dysphagia, Denies neck lump, Denies swelling in throat, Denies sore throat Breasts: right: as per HPI (Right lumpectomy.) Cardiovascular: Reports decreased exercise tolerance, Reports dyspnea on exertion, Reports leg edema, Reports lightheadedness, Reports rapid heart beat, Reports shortness of breath, Denies chest pain, Denies syncope Respiratory: Denies congestion, Denies cough, Denies cough with sputum, Denies home oxygen, Denies sleep apnea, Denies snoring, Denies wheezing Gastrointestinal: Reports bloating, Reports early satiety, Reports loss of appetite, Denies abdominal pain, Denies BRBPR, Denies change in bowel habits, Denies coffee ground emesis, Denies heartburn, Denies hematemesis, Denies hematochezia, Denies melena, Denies nausea, Denies vomiting Genitourinary: Denies dysuria, Denies hematuria Menstruation: Reports postmenopausal Musculoskeletal: Reports muscle weakness, Denies frequent falls Musculoskeletal: bilateral: ankle swelling, foot swelling, absent: ankle pain, ankle stiffness, as per HPI, elbow pain, elbow stiffness, elbow swelling, foot pain, foot stiffness, hand pain, hand stiffness, hand swelling, hip pain, hip stiffness, hip swelling, knee pain, knee stiffness, knee swelling, shoulder pain, shoulder stiffness, shoulder swelling, wrist pain, wrist stiffness, wrist swelling Integumentary: Denies pruritus, Denies rash Neurological: Denies numbness, Denies weakness Psychiatric: Reports anxiety, Reports depression, Denies sadness/tearfulness, Denies sleep disturbances, Denies suicidal ideation Endocrine: Denies fatigue, Denies weight change Objective - Vital Signs Vital signs: Vital Signs Temp 97.6 F 04/20/19 08:00 Pulse 90 04/20/19 09:00 Resp 22 04/20/19 09:00 BP 97/50 04/20/19 09:00 Pulse Ox 95 04/20/19 09:00 Intake & Output 04/19/19 04/20/19 04/20/19 18:59 06:59 18:59 Intake Total 250 1065 465 Output Total 625 150 Balance 250 440 315 Weight 102.1 kg 105.2 kg Intake: IV 250 825 225 Levofloxacin 500Mg-D5w 100 Pmx 500 mg In Dextrose/ Water 1 100ml.bag @ 100 mls/hr IVPB Q24H ADITI Rx#: [id number] Sodium Chloride 0.9% 1, 150 825 225 000 ml @ 75 mls/hr IV . [id number] ADITI Rx#:[id number] Oral 240 240 Output: Urine 625 150 Other: Voiding Method Bedside Commode Bedside Commode Bedside Commode # Voids 1 - Exam - Constitutional General appearance: average body habitus, no distress, resting in the ICU bed - EENT Eyes: anicteric sclerae, EOMI, PERRLA, no ptosis, scleral icterus, normal appearance ENT: hearing grossly normal, NA/AT, normal oropharynx, no thrush Ears: bilateral: normal - Neck Neck: lymphadenopathy (Significant lymphadenopathy and the right posterior cervical submandibular right supraclavicular left axillary left inguinal .) Thyroid: bilateral: enlarged - Respiratory Respiratory: bilateral: diminished, negative: dullness, rales, rhonchi, wheezing, prolonged expiration - Cardiovascular Rhythm: regular Heart sounds: normal: S1, S2 Abnormal Heart Sounds: systolic murmur, no S3 Gallop, no S4 Gallop - Gastrointestinal General gastrointestinal: distended, hepatomegaly, organomegaly, soft, splenomegaly, no tenderness, no umbilical hernia, no ventral hernia - Integumentary Integumentary: jaundiced, pale - Neurologic Neurologic: CNII-XII intact - Musculoskeletal Musculoskeletal: gait normal, generalized weakness - Psychiatric Psychiatric: A&O x's 3, appropriate affect, intact judgment & insight - Labs CBC & Chem 7: 04/19/19 21:11 12/12/19 05:06 Labs: Abnormal Lab Results - Last 24 Hours (Table) 04/19/19 04/19/19 04/19/19 Range/Units 12:10 12:10 12:10 WBC (3.8-10.6) k/uL RBC 1.67 L (3.80-5.40) m/uL Hgb 5.3 L* (11.4-16.0) gm/dL Hct 16.3 L* (34.0-46.0) % MCV (80.0-100.0) fL MCHC (31.0-37.0) g/dL RDW 17.9 H (11.5-15.5) % Plt Count 132 L (150-450) k/uL Lymphocytes # 0.3 L (1.0-4.8) k/uL PT (9.0-12.0) sec INR (<1.2) Sodium 133 L (137-145) mmol/L Potassium 5.6 H (3.5-5.1) mmol/L Carbon Dioxide 20 L (22-30) mmol/L BUN 54 H (7-17) mg/dL Creatinine 1.21 H (0.52-1.04) mg/dL Glucose 139 H (74-99) mg/dL POC Glucose (mg/dL) (75-99) mg/dL Plasma Lactic Acid Carloz 4.3 H* (0.7-2.0) mmol/L Uric Acid (3.7-7.4) mg/dL Calcium 11.1 H (8.4-10.2) mg/dL Phosphorus (2.5-4.5) mg/dL Iron (50-170) ug/dL % Saturation (12.00-45.00) Ferritin (10.0-291.0) ng/mL Total Bilirubin 2.8 H (0.2-1.3) mg/dL AST 57 H (14-36) U/L Lactate Dehydrogenase (313-618) U/L Albumin 2.9 L (3.5-5.0) g/dL TSH (0.465-4.680) mIU/L Urine Appearance (Clear) Urine Protein (Negative) Amorphous Sediment (None) /hpf Urine Bacteria (None) /hpf Urine Mucus (None) /hpf Crossmatch 04/19/19 04/19/19 04/19/19 Range/Units 12:10 12:10 12:10 WBC (3.8-10.6) k/uL RBC (3.80-5.40) m/uL Hgb (11.4-16.0) gm/dL Hct (34.0-46.0) % MCV (80.0-100.0) fL MCHC (31.0-37.0) g/dL RDW (11.5-15.5) % Plt Count (150-450) k/uL Lymphocytes # (1.0-4.8) k/uL PT 12.9 H (9.0-12.0) sec INR 1.3 H (<1.2) Sodium (137-145) mmol/L Potassium (3.5-5.1) mmol/L Carbon Dioxide (22-30) mmol/L BUN (7-17) mg/dL Creatinine (0.52-1.04) mg/dL Glucose (74-99) mg/dL POC Glucose (mg/dL) (75-99) mg/dL Plasma Lactic Acid Carloz (0.7-2.0) mmol/L Uric Acid (3.7-7.4) mg/dL Calcium (8.4-10.2) mg/dL Phosphorus (2.5-4.5) mg/dL Iron 180 H (50-170) ug/dL % Saturation 64.29 H (12.00-45.00) Ferritin 469.2 H (10.0-291.0) ng/mL Total Bilirubin (0.2-1.3) mg/dL AST (14-36) U/L Lactate Dehydrogenase 1160 H (313-618) U/L Albumin (3.5-5.0) g/dL TSH (0.465-4.680) mIU/L Urine Appearance (Clear) Urine Protein (Negative) Amorphous Sediment (None) /hpf Urine Bacteria (None) /hpf Urine Mucus (None) /hpf Crossmatch See Detail 04/19/19 04/19/19 04/19/19 Range/Units 12:15 13:52 14:46 WBC (3.8-10.6) k/uL RBC (3.80-5.40) m/uL Hgb (11.4-16.0) gm/dL Hct (34.0-46.0) % MCV (80.0-100.0) fL MCHC (31.0-37.0) g/dL RDW (11.5-15.5) % Plt Count (150-450) k/uL Lymphocytes # (1.0-4.8) k/uL PT (9.0-12.0) sec INR (<1.2) Sodium (137-145) mmol/L Potassium (3.5-5.1) mmol/L Carbon Dioxide (22-30) mmol/L BUN (7-17) mg/dL Creatinine (0.52-1.04) mg/dL Glucose (74-99) mg/dL POC Glucose (mg/dL) (75-99) mg/dL Plasma Lactic Acid Carloz 3.1 H* (0.7-2.0) mmol/L Uric Acid (3.7-7.4) mg/dL Calcium (8.4-10.2) mg/dL Phosphorus (2.5-4.5) mg/dL Iron (50-170) ug/dL % Saturation (12.00-45.00) Ferritin (10.0-291.0) ng/mL Total Bilirubin (0.2-1.3) mg/dL AST (14-36) U/L Lactate Dehydrogenase (313-618) U/L Albumin (3.5-5.0) g/dL TSH (0.465-4.680) mIU/L Urine Appearance Cloudy H (Clear) Urine Protein Trace H (Negative) Amorphous Sediment Rare H (None) /hpf Urine Bacteria Rare H (None) /hpf Urine Mucus Rare H (None) /hpf Crossmatch See Detail 04/19/19 04/19/19 04/19/19 Range/Units 14:50 16:55 17:43 WBC 3.3 L (3.8-10.6) k/uL RBC 1.59 L (3.80-5.40) m/uL Hgb 5.0 L* (11.4-16.0) gm/dL Hct 16.3 L* (34.0-46.0) % MCV 102.7 H D (80.0-100.0) fL MCHC 30.4 L (31.0-37.0) g/dL RDW 18.3 H (11.5-15.5) % Plt Count 127 L (150-450) k/uL Lymphocytes # 0.2 L (1.0-4.8) k/uL PT (9.0-12.0) sec INR (<1.2) Sodium (137-145) mmol/L Potassium (3.5-5.1) mmol/L Carbon Dioxide (22-30) mmol/L BUN (7-17) mg/dL Creatinine (0.52-1.04) mg/dL Glucose (74-99) mg/dL POC Glucose (mg/dL) 136 H (75-99) mg/dL Plasma Lactic Acid Carloz (0.7-2.0) mmol/L Uric Acid 9.6 H (3.7-7.4) mg/dL Calcium (8.4-10.2) mg/dL Phosphorus 5.0 H (2.5-4.5) mg/dL Iron (50-170) ug/dL % Saturation (12.00-45.00) Ferritin (10.0-291.0) ng/mL Total Bilirubin (0.2-1.3) mg/dL AST (14-36) U/L Lactate Dehydrogenase (313-618) U/L Albumin (3.5-5.0) g/dL TSH 7.130 H (0.465-4.680) mIU/L Urine Appearance (Clear) Urine Protein (Negative) Amorphous Sediment (None) /hpf Urine Bacteria (None) /hpf Urine Mucus (None) /hpf Crossmatch 04/19/19 04/19/19 04/19/19 Range/Units 20:57 21:11 21:11 WBC (3.8-10.6) k/uL RBC 1.56 L (3.80-5.40) m/uL Hgb 5.0 L* (11.4-16.0) gm/dL Hct 15.5 L* (34.0-46.0) % MCV (80.0-100.0) fL MCHC (31.0-37.0) g/dL RDW 18.4 H (11.5-15.5) % Plt Count 113 L (150-450) k/uL Lymphocytes # (1.0-4.8) k/uL PT (9.0-12.0) sec INR (<1.2) Sodium (137-145) mmol/L Potassium (3.5-5.1) mmol/L Carbon Dioxide (22-30) mmol/L BUN (7-17) mg/dL Creatinine (0.52-1.04) mg/dL Glucose (74-99) mg/dL POC Glucose (mg/dL) 187 H (75-99) mg/dL Plasma Lactic Acid Carloz 3.0 H* (0.7-2.0) mmol/L Uric Acid (3.7-7.4) mg/dL Calcium (8.4-10.2) mg/dL Phosphorus (2.5-4.5) mg/dL Iron (50-170) ug/dL % Saturation (12.00-45.00) Ferritin (10.0-291.0) ng/mL Total Bilirubin (0.2-1.3) mg/dL AST (14-36) U/L Lactate Dehydrogenase (313-618) U/L Albumin (3.5-5.0) g/dL TSH (0.465-4.680) mIU/L Urine Appearance (Clear) Urine Protein (Negative) Amorphous Sediment (None) /hpf Urine Bacteria (None) /hpf Urine Mucus (None) /hpf Crossmatch 04/20/19 04/20/19 04/20/19 Range/Units 01:08 05:06 05:49 WBC (3.8-10.6) k/uL RBC (3.80-5.40) m/uL Hgb (11.4-16.0) gm/dL Hct (34.0-46.0) % MCV (80.0-100.0) fL MCHC (31.0-37.0) g/dL RDW (11.5-15.5) % Plt Count (150-450) k/uL Lymphocytes # (1.0-4.8) k/uL PT (9.0-12.0) sec INR (<1.2) Sodium 132 L (137-145) mmol/L Potassium 5.9 H (3.5-5.1) mmol/L Carbon Dioxide 19 L (22-30) mmol/L BUN 66 H (7-17) mg/dL Creatinine 1.28 H (0.52-1.04) mg/dL Glucose 197 H (74-99) mg/dL POC Glucose (mg/dL) (75-99) mg/dL Plasma Lactic Acid Carloz 2.8 H* 2.8 H* (0.7-2.0) mmol/L Uric Acid (3.7-7.4) mg/dL Calcium (8.4-10.2) mg/dL Phosphorus 5.6 H (2.5-4.5) mg/dL Iron (50-170) ug/dL % Saturation (12.00-45.00) Ferritin (10.0-291.0) ng/mL Total Bilirubin (0.2-1.3) mg/dL AST (14-36) U/L Lactate Dehydrogenase (313-618) U/L Albumin (3.5-5.0) g/dL TSH (0.465-4.680) mIU/L Urine Appearance (Clear) Urine Protein (Negative) Amorphous Sediment (None) /hpf Urine Bacteria (None) /hpf Urine Mucus (None) /hpf Crossmatch 04/20/19 Range/Units 06:52 WBC (3.8-10.6) k/uL RBC (3.80-5.40) m/uL Hgb (11.4-16.0) gm/dL Hct (34.0-46.0) % MCV (80.0-100.0) fL MCHC (31.0-37.0) g/dL RDW (11.5-15.5) % Plt Count (150-450) k/uL Lymphocytes # (1.0-4.8) k/uL PT (9.0-12.0) sec INR (<1.2) Sodium (137-145) mmol/L Potassium (3.5-5.1) mmol/L Carbon Dioxide (22-30) mmol/L BUN (7-17) mg/dL Creatinine (0.52-1.04) mg/dL Glucose (74-99) mg/dL POC Glucose (mg/dL) 207 H (75-99) mg/dL Plasma Lactic Acid Carloz (0.7-2.0) mmol/L Uric Acid (3.7-7.4) mg/dL Calcium (8.4-10.2) mg/dL Phosphorus (2.5-4.5) mg/dL Iron (50-170) ug/dL % Saturation (12.00-45.00) Ferritin (10.0-291.0) ng/mL Total Bilirubin (0.2-1.3) mg/dL AST (14-36) U/L Lactate Dehydrogenase (313-618) U/L Albumin (3.5-5.0) g/dL TSH (0.465-4.680) mIU/L Urine Appearance (Clear) Urine Protein (Negative) Amorphous Sediment (None) /hpf Urine Bacteria (None) /hpf Urine Mucus (None) /hpf Crossmatch Assessment and Plan Plan: 1. Severe symptomatic anemia with a new diagnosis of T-cell lymphoma CD30(final pathologic report is not available yet he was sent to the [facility] for second opinion) with possible AIHA due to her malignancy. Haptoglobin is still pending. Oncology consult appreciated. Patient has been started on Decadron. 2. Acute symptomatic anemia. Type and cross 2 units of packed red blood cells clear hemolysis by hematology prior to any blood transfusion. Awaiting blood for transfusion. 3. T-cell lymphoma CD30 positive. Likely will require chemotherapy await hematology oncology input. 4. Hypertension and hypertensive cardio vascular disease currently hypotensive discontinue Lotrel for now. 5. Hypotension with hypoperfusion creating lactic acidosis. Continue IV fluid resuscitation, admitted to the intensive care unit, consult Dr. Hurley. 6. Tumor lysis syndrome. Oncology is following. Patient is status post Elitek. 7. Diabetes mellitus type 2, uncontrolled with hyperglycemia secondary to steroids. Continue NovoLog scale and add Levemir 8 units at bedtime. 8. Hyperlipidemia. Discontinue Crestor for now. 9. Hypothyroidism. Continue Synthroid increased to 75 g orally once every day. 10. Diverticulosis. Colonoscopy is up-to-date. 11. Recurrent Depression. Currently on Effexor XR 75 mg orally once every day. 12. DVT prophylaxis. Bilateral knee-high THA hose. 13. GI prophylaxis. Start the patient on Protonix 40 mg IV push every 24 hours. 14. Bicytopenia with anemia and thrombocytopenia secondary to underlying cancer. Code status: full code. Discharge plan: To be determined. Impression and plan of care have been directed as dictated by the signing physician. Verito Convery nurse practitioner acting as scribe for signing physician.
[2019-04-20 14:32] LABS: Hemoglobin A1C 5.8 % (4.0-6.0)
[2019-04-20] MEDS ORDERED: ACETAMINOPHEN TAB 325 MG TAB PO PRN (15:52)
[2019-04-20 16:59] LABS: Glucose,Whole Blood 230 mg/dL (75-99)
[2019-04-20 18:02] LABS: Anisocytosis Slight; HCT 21.6 % (34.0-46.0); HGB 7.1 gm/dL (11.4-16.0); MCH 31.5 pg (25.0-35.0); MCHC 32.8 g/dL (31.0-37.0); MCV 95.8 fL (80.0-100.0); Macrocytosis Slight; Mean Platelet Volume 10.3; Platelet Count 123 k/uL (150-450); RBC 2.26 m/uL (3.80-5.40); RDW 17.3 % (11.5-15.5); WBC 6.5 k/uL (3.8-10.6)
[2019-04-20] MEDS: LEVOFLOXACIN 250MG-D5W PMX 250 MG in DEXTROSE/WATER 1 50ML.BAG IVPB SCH (18:11)
[2019-04-20] MEDS ORDERED: INSULIN DETEMIR (LEVEMIR) 100 UNIT/ML SYR SQ SCH (21:00)
[2019-04-20 21:05] LABS: Glucose,Whole Blood 257 mg/dL (75-99)
[2019-04-21 05:37] LABS: Anisocytosis Slight; Basophils % (A) 0 %; Eosinophils % (A) 0 %; HCT 20.5 % (34.0-46.0); Lymphocytes # (A) 0.2 k/uL (1.0-4.8); Lymphocytes % (A) 4 %; MCH 31.5 pg (25.0-35.0); MCHC 32.7 g/dL (31.0-37.0); MCV 96.2 fL (80.0-100.0); Macrocytosis Slight; Mean Platelet Volume 9.2; Monocytes # (A) 0.3 k/uL (0-1.0); Monocytes % (A) 6 %; Neutrophils # (A) 4.1 k/uL (1.3-7.7); Neutrophils % (A) 88 %; Platelet Count 126 k/uL (150-450); RBC 2.13 m/uL (3.80-5.40); WBC 4.7 k/uL (3.8-10.6)
[2019-04-21 05:49] LABS: Calcium 9.8 mg/dL (8.4-10.2); Phosphorus 5.4 mg/dL (2.5-4.5); Potassium 5.6 mmol/L (3.5-5.1)
[2019-04-21 06:08] LABS: HGB 6.7 gm/dL (11.4-16.0)
[2019-04-21 07:07] LABS: Glucose,Whole Blood 209 mg/dL (75-99)
[2019-04-21] MEDS: LEVOTHYROXINE 75 MCG TAB PO SCH (07:13)
[2019-04-21] MEDS: INSULIN ASPART (NovoLOG) 100 UNIT/ML VIAL SQ SCH ×4 (07:13→21:24)
[2019-04-21] MEDS: SODIUM CHLORIDE 0.9% 1,000 ML IV SCH (09:00)
--- NOTE | 2019-04-21 09:06 | PN ---
PROGRESS NOTE PULMONARY/CRITICAL CARE PROGRESS NOTE: DATE OF SERVICE: 04/21/2019 This is a 68-year-old female who has a recent diagnosis of lymphoma made by a diagnosis of a biopsy of right supraclavicular lymph node. The patient's pathology read here was inconclusive and the specimens are sent to [facility] for further classification and their opinion. She has not received any treatment as yet. She came into the emergency room on the complaining of just feeling weak and fatigued. She was noted to have a hemoglobin of 5.3. She did have some warm antibodies in her blood and it took some time to get some blood for her. She did get 2 units yesterday. Her primary oncologist is Dr. Gonzalez. Her primary care physician is Dr. Gaffney. The patient is doing much better. We moved her up to the ICU to monitor her more closely. Her blood pressure has been improved. Her hemoglobin this morning was 6.7 so we ordered another unit of blood. She also manifested some signs and symptoms of tumor lysis syndrome and she received Elitek. Anyway, the patient does have a history of hypothyroidism, hypertension, hyperlipidemia, and diabetes. She also has a prior history of breast cancer. Currently, she is not receiving any supplemental oxygen. Her IV is 0.9 at 75 mL an hour. Current vital signs are reviewed. Her temperature today is 97.9, heart rate 84, respiratory rate 17, blood pressure 123/61 mean 81, room air saturation 94%. Appears in no acute distress. HEENT: Examination is grossly unremarkable. Mucous membranes are moist. No oral lesions. NECK: Supple. Full range of motion. No adenopathy or thyromegaly. Neck veins are flat. CARDIOVASCULAR: Examination reveals regular rhythm and rate. S1, S2 normal. No S3, S4, or murmur. LUNGS: Reveal clear breath sounds. No wheezes, rhonchi, or crackles. Breath sounds equal bilaterally. ABDOMEN: Soft. EXTREMITIES: Intact. Minimal edema. SKIN: Without rash. NEUROLOGIC: Examination is brief but nonfocal. LABS: Reviewed. White count 4.7, hemoglobin 6.7, hematocrit 20.5, platelet count 126,000. Sodium 133, potassium 5.6, chloride 108 CO2 17 anion gap is 8. BUN and creatinine were 72 and 1.18. Phosphorus is 5.4, uric acid is down to 5. Microbiology is negative thus far. No recent x-rays to report. ASSESSMENT: 1. Recent diagnosis by lymph node biopsy, of lymphoma, yet to be fully classified, with specimens being currently evaluated at [facility]. 2. Profound weakness, likely secondary to anemia and her recent diagnosis of lymphoma. 3. Rule out sepsis, so far cultures negative. 4. Probable tumor lysis syndrome. 5. Mild lactic acidemia. 6. Non-anion gap metabolic acidosis. 7. History of hypertension. 8. Hyperlipidemia. 9. Diabetes mellitus. 10.Hypothyroidism, not well controlled. 11.Mild thrombocytopenia. 12.Prerenal azotemia. 13.Hypercalcemia. 14.Hyperuricemia. PLAN: The patient seems to be doing a bit better today. Her hemoglobin is up to 6.7. We ordered another unit of blood. The patient's numbers all look better. She is off supplemental oxygen. Her blood pressure is much better controlled. Will continue to maintain here in the ICU for now. No additional recommendations are made. Cultures have been done and pending and/or negative. Additional recommendations and suggestions are forthcoming. MEDICATIONS: Reviewed. She is currently on Tylenol, insulin, Levaquin, Synthroid, Narcan, Protonix and Effexor. MMODL / IJN: [id number] /
[2019-04-21] MEDS: PANTOPRAZOLE 40 MG/10 ML VIAL IVP SCH (09:07)
[2019-04-21] MEDS: VENLAFAXINE HCL 75 MG TAB PO SCH (09:08)
[2019-04-21] MEDS: DEXAMETHASONE 4 MG TAB PO SCH (09:08)
--- NOTE | 2019-04-21 11:10 | P.PN ---
Subjective Progress Note Date: 04/21/19 This is a 68-year-old female one of my patient with a previous medical history significant for hypertension and hypertensive cardiovascular disease, hyperlipidemia, new diagnosis of diabetes mellitus type 2, history of breast cancer status post right lumpectomy with radiation therapy, diverticulosis, hypothyroidism, patient developed to have a a small lymph node in the back of her neck about 3 month ago and she was evaluated in my office at that time the lymph nodes were freely movable and small in size and eventually the lymph node got better for a bit and subsequently developed to have a significant lymphadenopathy in the right cervical and submandibular bilaterally along with right supraclavicular lymph node and left axillary and left inguinal lymph node, she went to Dr. 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 mechanical instrument maker/oncologist on Wednesday for a treatment plan, the biopsy was sent to the [facility] for further recommendation and evaluation as well he shouldn't has been declining over the last week or so with poor appetite and increased edema in upper and lower extremities with increased abdominal distention and fatigue and generalized Megace and weakness and dark urine according to the patient I spoke with her daughter about 2 days ago and asked her to bring her to the ER if she is not improving patient showed up to the ER today and she was found to have hemoglobin of 5 significantly elevated LDH and bilirubin along with liver function test haptoglobin was still pending there were some concern of hemolytic anemia in view of her lymphoma, hematology oncology consult added and blood tests were ordered labs were drawn and the patient will be receiving 2 units of packed red blood cells after the antibodies are cleared through the blood bank ([facility]). Patient appears to be somewhat hypotensive a bit short of breath, she did receive 2 L of IV fluid at this point in time her blood pressure continues to be low, Lactic acid was high she would be admitted to the intensive care unit with consultation to Dr. Hurley for further evaluation recommendation. 04/20: Patient has been seen by oncology regarding lymphoma. They are waiting for subtype classification of pathology. Patient was started on Decadron. Lab work has been ordered for tumor lysis syndrome and patient was given 1 dose of Elitek. Patient is followed by Dr. Hurley as well. He has increased levothyroxine to 75 g. Repeat lab work reveals sodium 132, potassium 5.9, CO2 is 19, BUN 1266, creatinine 1.28. Repeat lactic acid is 3.4, phosphorus 5.6. Repeat uric acid normal at 5.3. Patient continues to shortness of breath with exertion. She complains of lightheadedness. She is waiting for blood transfusion. She denies having any chest pain or headache. Blood sugars are elevated running 197 at 212. Levemir will be added. 04/21: the patient is status post 2 units of packed RBCs and hemoglobin last evening was 7.1, this morning hemoglobin 6.7 and she is ordered for her third unit of packed RBCs. Patient has decreased urine output that is dark and IV fluids will continue at 75 mL per hour. Patient is not eating very much and Glucerna will be added for supplementation.she has been afebrile, heart rate 87, blood pressure 115/71, pulse ox 94% on room air. Family is hoping that the final pathology report will be available today. Awaiting further recommendations from oncology.blood sugars remain elevated despite starting Levemir last evening. Levemir will be increased to 18 units at bedtime. Continue NovoLog scale as well. Review of Systems Constitutional: Reports anorexia, Reports fatigue, Reports lethargy, Reports malaise, Reports sweats, Reports weakness Eyes: denies blurred vision, denies decreased vision Ears, nose, mouth and throat: Denies dysphagia, Denies neck lump, Denies swelling in throat, Denies sore throat Breasts: right: as per HPI (Right lumpectomy.) Cardiovascular: Reports decreased exercise tolerance, Reports dyspnea on exertion, Reports leg edema, Reports lightheadedness, Reports rapid heart beat, Reports shortness of breath, Denies chest pain, Denies syncope Respiratory: Denies congestion, Denies cough, Denies cough with sputum, Denies home oxygen, Denies sleep apnea, Denies snoring, Denies wheezing Gastrointestinal: Reports bloating, Reports early satiety, Reports loss of appetite, Denies abdominal pain, Denies BRBPR, Denies change in bowel habits, Denies coffee ground emesis, Denies heartburn, Denies hematemesis, Denies hematochezia, Denies melena, Denies nausea, Denies vomiting Genitourinary: Denies dysuria, Denies hematuria Menstruation: Reports postmenopausal Musculoskeletal: Reports muscle weakness, Denies frequent falls Musculoskeletal: bilateral: ankle swelling, foot swelling, absent: ankle pain, ankle stiffness, as per HPI, elbow pain, elbow stiffness, elbow swelling, foot pain, foot stiffness, hand pain, hand stiffness, hand swelling, hip pain, hip stiffness, hip swelling, knee pain, knee stiffness, knee swelling, shoulder pain, shoulder stiffness, shoulder swelling, wrist pain, wrist stiffness, wrist swelling Integumentary: Denies pruritus, Denies rash Neurological: Denies numbness, Denies weakness Psychiatric: Reports anxiety, Reports depression, Denies sadness/tearfulness, Denies sleep disturbances, Denies suicidal ideation Endocrine: Denies fatigue, Denies weight change Objective - Vital Signs Vital signs: Vital Signs Temp 97.9 F 04/21/19 08:00 Pulse 87 04/21/19 10:00 Resp 16 04/21/19 10:00 BP 122/64 04/21/19 10:00 Pulse Ox 93 L 04/21/19 10:00 Intake & Output 04/20/19 04/21/19 04/21/19 18:59 06:59 18:59 Intake Total 1785 1825 225 Output Total 1000 1000 0 Balance 785 825 225 Weight 105.2 kg 105.9 kg Intake: IV 925 1350 225 0.9 150 Levofloxacin 500Mg-D5w 100 Pmx 500 mg In Dextrose/ Water 1 100ml.bag @ 100 mls/hr IVPB Q24H [facility] Rx#: [id number] Sodium Chloride 0.9% 1, 150 525 000 ml @ 75 mls/hr IV . [id number] [facility] Rx#:[id number] Sodium Chloride 0.9% 1, 675 825 75 000 ml @ 75 mls/hr IV . [id number] [facility] Rx#:[id number] Oral 240 475 Blood Product 620 Rc Irr As1 Unit 310 [id number] Rc Irr As1 Unit 310 [id number] Output: Urine 1000 1000 0 Other: Voiding Method Bedside Commode Bedside Commode Bedside Commode # Bowel Movements 1 1 - Exam - Constitutional General appearance: average body habitus, no distress, resting in the ICU bed, Appears comfortable - EENT Eyes: anicteric sclerae, EOMI, PERRLA, no ptosis, scleral icterus, normal appearance ENT: hearing grossly normal, NA/AT, normal oropharynx, no thrush Ears: bilateral: normal - Neck Neck: lymphadenopathy (Significant lymphadenopathy and the right posterior cervical submandibular right supraclavicular left axillary left inguinal .) Thyroid: bilateral: enlarged - Respiratory Respiratory: bilateral: diminished, negative: dullness, rales, rhonchi, wheez ing, prolonged expiration - Cardiovascular Rhythm: regular Heart sounds: normal: S1, S2 Abnormal Heart Sounds: systolic murmur, no S3 Gallop, no S4 Gallop - Gastrointestinal General gastrointestinal: distended, hepatomegaly, organomegaly, soft, splenomegaly, no tenderness, no umbilical hernia, no ventral hernia - Integumentary Integumentary: pale - Neurologic Neurologic: CNII-XII intact - Musculoskeletal Musculoskeletal: gait normal, generalized weakness - Psychiatric Psychiatric: A&O x's 3, appropriate affect, intact judgment & insight - Labs CBC & Chem 7: 04/21/19 04:53 04/21/19 04:53 Labs: Abnormal Lab Results - Last 24 Hours (Table) 04/19/19 04/19/19 04/20/19 Range/Units 12:10 13:52 05:06 RBC (3.80-5.40) m/uL Hgb (11.4-16.0) gm/dL Hct (34.0-46.0) % RDW (11.5-15.5) % Plt Count (150-450) k/uL Lymphocytes # (1.0-4.8) k/uL Haptoglobin <8.0 L (31.2-198.0) mg/dL Sodium 132 L (137-145) mmol/L Potassium 5.9 H (3.5-5.1) mmol/L Chloride (98-107) mmol/L Carbon Dioxide 19 L (22-30) mmol/L BUN 66 H (7-17) mg/dL Creatinine 1.28 H (0.52-1.04) mg/dL Glucose 197 H (74-99) mg/dL POC Glucose (mg/dL) (75-99) mg/dL Plasma Lactic Acid Carloz (0.7-2.0) mmol/L Phosphorus 5.6 H (2.5-4.5) mg/dL Total Bilirubin 2.4 H (0.2-1.3) mg/dL AST 47 H (14-36) U/L Total Protein 5.7 L (6.3-8.2) g/dL Albumin 2.6 L (3.5-5.0) g/dL Crossmatch See Detail 04/20/19 04/20/19 04/20/19 Range/Units 05:06 09:57 11:41 RBC (3.80-5.40) m/uL Hgb (11.4-16.0) gm/dL Hct (34.0-46.0) % RDW (11.5-15.5) % Plt Count (150-450) k/uL Lymphocytes # (1.0-4.8) k/uL Haptoglobin (31.2-198.0) mg/dL Sodium (137-145) mmol/L Potassium (3.5-5.1) mmol/L Chloride (98-107) mmol/L Carbon Dioxide (22-30) mmol/L BUN (7-17) mg/dL Creatinine (0.52-1.04) mg/dL Glucose (74-99) mg/dL POC Glucose (mg/dL) 212 H (75-99) mg/dL Plasma Lactic Acid Carloz 3.4 H* (0.7-2.0) mmol/L Phosphorus 5.6 H (2.5-4.5) mg/dL Total Bilirubin (0.2-1.3) mg/dL AST (14-36) U/L Total Protein (6.3-8.2) g/dL Albumin (3.5-5.0) g/dL Crossmatch 04/20/19 04/20/19 04/20/19 Range/Units 16:47 17:25 20:53 RBC 2.26 L (3.80-5.40) m/uL Hgb 7.1 L D (11.4-16.0) gm/dL Hct 21.6 L (34.0-46.0) % RDW 17.3 H (11.5-15.5) % Plt Count 123 L (150-450) k/uL Lymphocytes # (1.0-4.8) k/uL Haptoglobin (31.2-198.0) mg/dL Sodium (137-145) mmol/L Potassium (3.5-5.1) mmol/L Chloride (98-107) mmol/L Carbon Dioxide (22-30) mmol/L BUN (7-17) mg/dL Creatinine (0.52-1.04) mg/dL Glucose (74-99) mg/dL POC Glucose (mg/dL) 230 H 257 H (75-99) mg/dL Plasma Lactic Acid Carloz (0.7-2.0) mmol/L Phosphorus (2.5-4.5) mg/dL Total Bilirubin (0.2-1.3) mg/dL AST (14-36) U/L Total Protein (6.3-8.2) g/dL Albumin (3.5-5.0) g/dL Crossmatch 04/21/19 04/21/19 04/21/19 Range/Units 04:53 04:53 06:53 RBC 2.13 L (3.80-5.40) m/uL Hgb 6.7 L* (11.4-16.0) gm/dL Hct 20.5 L (34.0-46.0) % RDW 18.0 H (11.5-15.5) % Plt Count 126 L (150-450) k/uL Lymphocytes # 0.2 L (1.0-4.8) k/uL Haptoglobin (31.2-198.0) mg/dL Sodium 133 L (137-145) mmol/L Potassium 5.6 H (3.5-5.1) mmol/L Chloride 108 H (98-107) mmol/L Carbon Dioxide 17 L (22-30) mmol/L BUN 72 H (7-17) mg/dL Creatinine 1.18 H (0.52-1.04) mg/dL Glucose 199 H (74-99) mg/dL POC Glucose (mg/dL) 209 H (75-99) mg/dL Plasma Lactic Acid Carloz (0.7-2.0) mmol/L Phosphorus 5.4 H (2.5-4.5) mg/dL Total Bilirubin (0.2-1.3) mg/dL AST (14-36) U/L Total Protein (6.3-8.2) g/dL Albumin (3.5-5.0) g/dL Crossmatch Microbiology - Last 24 Hours (Table) 04/19/19 12:10 Blood Culture - Preliminary Blood No Growth after 24 hours Assessment and Plan Plan: 1. Severe symptomatic anemia with a new diagnosis of T-cell lymphoma CD30(final pathologic report is not available yet he was sent to the [facility] for second opinion) with possible AIHA due to her malignancy. Haptoglobin is still pending. Oncology consult appreciated. Patient has been started on Decadron. 2. Acute symptomatic anemia. the patient will be transfused a total of 3 units of packed RBCs.. 3. T-cell lymphoma CD30 positive. Likely will require chemotherapy await hematology oncology input.awaiting pathology report finalization. 4. Hypertension and hypertensive cardio vascular disease currently hypotensive discontinue Lotrel for now. 5. Hypotension with hypoperfusion creating lactic acidosis. Continue IV fluid resuscitation, admitted to the intensive care unit, consult Dr. Hurley. 6. Tumor lysis syndrome. Oncology is following. Patient is status post Elitek. 7. Diabetes mellitus type 2, uncontrolled with hyperglycemia secondary to steroids. Continue NovoLog scale and increase Levemir to 18 units at bedtime. 8. Hyperlipidemia. Discontinue Crestor for now. 9. Hypothyroidism. Continue Synthroid increased to 75 g orally once every day. 10. Diverticulosis. Colonoscopy is up-to-date. 11. Recurrent Depression. Currently on Effexor XR 75 mg orally once every day. 12. DVT prophylaxis. Bilateral knee-high THA hose. 13. GI prophylaxis. Start the patient on Protonix 40 mg IV push every 24 hours. 14. Bicytopenia with anemia and thrombocytopenia secondary to underlying cancer. Code status: full code. Discharge plan: To be determined. Impression and plan of care have been directed as dictated by the signing physician. Verito Veloz nurse practitioner acting as scribe for signing physician.
[2019-04-21 12:00] LABS: Glucose,Whole Blood 249 mg/dL (75-99)
[2019-04-21 14:52] LABS: Anisocytosis Slight; HCT 24.5 % (34.0-46.0); HGB 8.1 gm/dL (11.4-16.0); MCH 31.2 pg (25.0-35.0); MCHC 32.9 g/dL (31.0-37.0); MCV 94.9 fL (80.0-100.0); Macrocytosis Slight; Mean Platelet Volume 9.2; Platelet Count 133 k/uL (150-450); RBC 2.59 m/uL (3.80-5.40); RDW 18.1 % (11.5-15.5); WBC 5.8 k/uL (3.8-10.6)
[2019-04-21 17:01] LABS: Glucose,Whole Blood 223 mg/dL (75-99)
[2019-04-21] MEDS: LEVOFLOXACIN 250MG-D5W PMX 250 MG in DEXTROSE/WATER 1 50ML.BAG IVPB SCH (17:35)
--- NOTE | 2019-04-21 17:38 | P.PN ---
Subjective Progress Note Date: 04/21/19 the patient still has significant generalized weakness so she feels somewhat stronger after the blood transfusion. No obvious bleeding. No fever/chills/nausea/vomiting. Objective - Vital Signs Vital signs: Vital Signs Temp 98.0 F 04/21/19 16:00 Pulse 87 04/21/19 17:00 Resp 16 04/21/19 17:00 BP 120/70 04/21/19 17:00 Pulse Ox 94 L 04/21/19 17:00 Intake & Output 04/20/19 04/21/19 04/21/19 18:59 06:59 18:59 Intake Total 1785 1825 1385 Output Total 1000 1000 950 Balance 785 825 435 Weight 105.2 kg 105.9 kg Intake: IV 925 1350 825 0.9 750 Levofloxacin 500Mg-D5w 100 Pmx 500 mg In Dextrose/ Water 1 100ml.bag @ 100 mls/hr IVPB Q24H [facility] Rx#: [id number] Sodium Chloride 0.9% 1, 150 525 000 ml @ 75 mls/hr IV . [id number] [facility] Rx#:[id number] Sodium Chloride 0.9% 1, 675 825 75 000 ml @ 75 mls/hr IV . [id number] [facility] Rx#:[id number] Oral 240 475 250 Blood Product 620 310 Rc Irr As1 Unit 310 [id number] Rc Irr As1 Unit 310 [id number] Rc Irr As1 Unit 310 [id number] Output: Urine 1000 1000 950 Other: Voiding Method Bedside Commode Bedside Commode Bedside Commode # Voids 1 # Bowel Movements 1 1 - Constitutional General appearance: Present: no acute distress - EENT Eyes: Present: EOMI ENT: Present: hearing grossly normal, normal oropharynx - Respiratory Respiratory: bilateral: CTA - Cardiovascular Rhythm: regular Heart sounds: normal: S1, S2 - Gastrointestinal General gastrointestinal: Present: normal bowel sounds, soft - Integumentary Integumentary: Present: normal - Neurologic Neurologic: Present: CNII-XII intact - Musculoskeletal Musculoskeletal: Present: generalized weakness, strength equal bilaterally - Psychiatric Psychiatric: Present: A&O x's 3, appropriate affect - Labs CBC & Chem 7: 04/21/19 13:58 04/21/19 04:53 Labs: Abnormal Lab Results - Last 24 Hours (Table) 04/19/19 04/20/19 04/20/19 Range/Units 13:52 17:25 20:53 RBC 2.26 L (3.80-5.40) m/uL Hgb 7.1 L D (11.4-16.0) gm/dL Hct 21.6 L (34.0-46.0) % RDW 17.3 H (11.5-15.5) % Plt Count 123 L (150-450) k/uL Lymphocytes # (1.0-4.8) k/uL Sodium (137-145) mmol/L Potassium (3.5-5.1) mmol/L Chloride (98-107) mmol/L Carbon Dioxide (22-30) mmol/L BUN (7-17) mg/dL Creatinine (0.52-1.04) mg/dL Glucose (74-99) mg/dL POC Glucose (mg/dL) 257 H (75-99) mg/dL Phosphorus (2.5-4.5) mg/dL Crossmatch See Detail 04/21/19 04/21/19 04/21/19 Range/Units 04:53 04:53 06:53 RBC 2.13 L (3.80-5.40) m/uL Hgb 6.7 L* (11.4-16.0) gm/dL Hct 20.5 L (34.0-46.0) % RDW 18.0 H (11.5-15.5) % Plt Count 126 L (150-450) k/uL Lymphocytes # 0.2 L (1.0-4.8) k/uL Sodium 133 L (137-145) mmol/L Potassium 5.6 H (3.5-5.1) mmol/L Chloride 108 H (98-107) mmol/L Carbon Dioxide 17 L (22-30) mmol/L BUN 72 H (7-17) mg/dL Creatinine 1.18 H (0.52-1.04) mg/dL Glucose 199 H (74-99) mg/dL POC Glucose (mg/dL) 209 H (75-99) mg/dL Phosphorus 5.4 H (2.5-4.5) mg/dL Crossmatch 04/21/19 04/21/19 04/21/19 Range/Units 11:48 13:58 16:50 RBC 2.59 L (3.80-5.40) m/uL Hgb 8.1 L (11.4-16.0) gm/dL Hct 24.5 L (34.0-46.0) % RDW 18.1 H (11.5-15.5) % Plt Count 133 L (150-450) k/uL Lymphocytes # (1.0-4.8) k/uL Sodium (137-145) mmol/L Potassium (3.5-5.1) mmol/L Chloride (98-107) mmol/L Carbon Dioxide (22-30) mmol/L BUN (7-17) mg/dL Creatinine (0.52-1.04) mg/dL Glucose (74-99) mg/dL POC Glucose (mg/dL) 249 H 223 H (75-99) mg/dL Phosphorus (2.5-4.5) mg/dL Crossmatch Microbiology - Last 24 Hours (Table) 04/19/19 12:10 Blood Culture - Preliminary Blood No Growth after 48 hours Assessment and Plan (1) Anemia Narrative/Plan: the patient's hemoglobin is improved after transfusion , to 8.1. Labs were reviewed. There is no evidence of any blood loss. Based on the labs she appears to have evidence of ongoing hemolysis, as well as decreased erythropoiesis (as haptoglobin is very low, and LDH high, but her reticulocyte count is also reduced) - The above was discussed with the patient. She is currently on high-dose steroids which will treat the hemolytic aspect, as well as lymphoproliferative conditions potentially affecting her bone marrow, till a more specific regimen can be formulated - Continue to monitor and transfuse as needed. As the patient has an autoantibody, transfusion with least incompatible blood is recommended to keep hemoglobin greater than 7 Current Visit: Yes Status: Acute Priority: High Code(s): D64.9 - ANEMIA, UNSPECIFIED SNOMED Code(s): 516581260 (2) Lymphoma Narrative/Plan: final pathology is still pending consultation at the [facility]. Based on results so far, and aggressive T-cell lymphoma is more likely. This is also discussed with the patient. Assuming that the diagnosis is confirmed, the patient will need to start aggressive combination chemotherapy most likely. Therefore we will proceed with port placement an echocardiogram in anticipation of the same. In the meantime the patient will be treated with bolus steroids 40 mg of Decadron daily, 4 days on and 4 days off. Consult surgery for port placement Current Visit: Yes Status: Acute Priority: High Code(s): C85.90 - NON- HODGKIN LYMPHOMA, UNSPECIFIED, UNSPECIFIED SITE SNOMED Code(s): 358197625 Plan: defer to the admitting service for management of her other medical problems
[2019-04-21 20:52] LABS: Glucose,Whole Blood 232 mg/dL (75-99)
[2019-04-21] MEDS: INSULIN DETEMIR (LEVEMIR) 100 UNIT/ML SYR SQ SCH (21:25)
[2019-04-21 22:42] LABS: Anisocytosis Slight; HCT 23.5 % (34.0-46.0); HGB 7.7 gm/dL (11.4-16.0); MCHC 32.8 g/dL (31.0-37.0); MCV 94.4 fL (80.0-100.0); Macrocytosis Slight; Mean Platelet Volume 9.6; Platelet Count 152 k/uL (150-450); RBC 2.48 m/uL (3.80-5.40); RDW 18.7 % (11.5-15.5); WBC 5.4 k/uL (3.8-10.6)
[2019-04-22] MEDS: SODIUM CHLORIDE 0.9% 1,000 ML IV SCH ×2 (01:30→11:49)
[2019-04-22 04:56] LABS: Anisocytosis Slight; Basophils % (A) 0 %; Eosinophils % (A) 0 %; HCT 21.3 % (34.0-46.0); HGB 7.2 gm/dL (11.4-16.0); Lymphocytes # (A) 0.2 k/uL (1.0-4.8); Lymphocytes % (A) 4 %; MCH 31.5 pg (25.0-35.0); MCHC 33.7 g/dL (31.0-37.0); MCV 93.4 fL (80.0-100.0); Macrocytosis Slight; Mean Platelet Volume 9.2; Monocytes # (A) 0.3 k/uL (0-1.0); Monocytes % (A) 5 %; Neutrophils % (A) 89 %; Platelet Count 131 k/uL (150-450); RBC 2.29 m/uL (3.80-5.40); RDW 18.6 % (11.5-15.5); WBC 5.6 k/uL (3.8-10.6)
[2019-04-22 05:05] LABS: Albumin 2.9 g/dL (3.5-5.0); Calcium 9.3 mg/dL (8.4-10.2); Phosphorus 5.1 mg/dL (2.5-4.5); Potassium 5.5 mmol/L (3.5-5.1); Total Protein 6.3 g/dL (6.3-8.2); Uric Acid 5.5 mg/dL (3.7-7.4)
[2019-04-22] MEDS: INSULIN ASPART (NovoLOG) 100 UNIT/ML VIAL SQ SCH ×4 (07:08→20:52)
[2019-04-22] MEDS: LEVOTHYROXINE 75 MCG TAB PO SCH (07:08)
[2019-04-22 07:10] LABS: Glucose,Whole Blood 179 mg/dL (75-99)
--- NOTE | 2019-04-22 08:12 | P.PN ---
Subjective Progress Note Date: 04/22/19 This is a 68-year-old female one of my patient with a previous medical history significant for hypertension and hypertensive cardiovascular disease, hyperlipidemia, new diagnosis of diabetes mellitus type 2, history of breast cancer status post right lumpectomy with radiation therapy, diverticulosis, hypothyroidism, patient developed to have a a small lymph node in the back of her neck about 3 month ago and she was evaluated in my office at that time the lymph nodes were freely movable and small in size and eventually the lymph node got better for a bit and subsequently developed to have a significant lymphadenopathy in the right cervical and submandibular bilaterally along with right supraclavicular lymph node and left axillary and left inguinal lymph node, she went to Dr. Augustin's office for follow-up for her breast cancer surveillance and the patient underwent a biopsy of the supra clavicular lymph node on the right side that was done last week and the report just Back yesterday with T- cell lymphoma positive for CD30 was supposed to follow-up with her tin container straightener/oncologist on Wednesday for a treatment plan, the biopsy was sent to the [facility] for further recommendation and evaluation as well he shouldn't has been declining over the last week or so with poor appetite and increased edema in upper and lower extremities with increased abdominal distention and fatigue and generalized Megace and weakness and dark urine according to the patient I spoke with her daughter about 2 days ago and asked her to bring her to the ER if she is not improving patient showed up to the ER today and she was found to have hemoglobin of 5 significantly elevated LDH and bilirubin along with liver function test haptoglobin was still pending there were some concern of hemolytic anemia in view of her lymphoma, hematology oncology consult added and blood tests were ordered labs were drawn and the patient will be receiving 2 units of packed red blood cells after the antibodies are cleared through the blood bank ([facility]). Patient appears to be somewhat hypotensive a bit short of breath, she did receive 2 L of IV fluid at this point in time her blood pressure continues to be low, Lactic acid was high she would be admitted to the intensive care unit with consultation to Dr. Hurley for further evaluation recommendation. 04/20: Patient has been seen by oncology regarding lymphoma. They are waiting for subtype classification of pathology. Patient was started on Decadron. Lab work has been ordered for tumor lysis syndrome and patient was given 1 dose of Elitek. Patient is followed by Dr. Hurley as well. He has increased levothyroxine to 75 g. Repeat lab work reveals sodium 132, potassium 5.9, CO2 is 19, BUN 1266, creatinine 1.28. Repeat lactic acid is 3.4, phosphorus 5.6. Repeat uric acid normal at 5.3. Patient continues to shortness of breath with exertion. She complains of lightheadedness. She is waiting for blood transfusion. She denies having any chest pain or headache. Blood sugars are elevated running 197 at 212. Levemir will be added. 04/21: the patient is status post 2 units of packed RBCs and hemoglobin last evening was 7.1, this morning hemoglobin 6.7 and she is ordered for her third unit of packed RBCs. Patient has decreased urine output that is dark and IV fluids will continue at 75 mL per hour. Patient is not eating very much and Glucerna will be added for supplementation.she has been afebrile, heart rate 87, blood pressure 115/71, pulse ox 94% on room air. Family is hoping that the final pathology report will be available today. Awaiting further recommendations from oncology.blood sugars remain elevated despite starting L evemir last evening. Levemir will be increased to 18 units at bedtime. Continue NovoLog scale as well. 04/22: Patient is status post 3 units of PRBCs and hemoglobin is 7.2 this morning. Awaiting further information from [facility] for complete diagnosis. patient has been up in the [place] walking. Patient states that she feels stronger than she has prior to admission. Patient has 2+ pitting edema bilateral lower extremities. Urinary output has been 1 L over the night. Patient has been hemodynamically stable. Denies any dizziness lightheadedness or vision changes. Review of Systems Constitutional: Reports anorexia, Reports fatigue, denies lethargy, Reports malaise, Reports sweats, Reports weakness Eyes: denies blurred vision, denies decreased vision Ears, nose, mouth and throat: Denies dysphagia, Denies neck lump, Denies swelling in throat, Denies sore throat Breasts: right: as per HPI (Right lumpectomy.) Cardiovascular: Reports decreased exercise tolerance, Reports dyspnea on ex ertion, Reports leg edema, Reports lightheadedness, Reports rapid heart beat, Reports shortness of breath, Denies chest pain, Denies syncope Respiratory: Denies congestion, Denies cough, Denies cough with sputum, Denies home oxygen, Denies sleep apnea, Denies snoring, Denies wheezing Gastrointestinal: Reports bloating, Reports early satiety, Reports loss of appetite, Denies abdominal pain, Denies change in bowel habits, Denies coffee ground emesis, Denies heartburn, Denies hematemesis, Denies hematochezia, Denies melena, Denies nausea, Denies vomiting Genitourinary: Denies dysuria, Denies hematuria Menstruation: Reports postmenopausal Musculoskeletal: Reports muscle weakness, Denies frequent falls Musculoskeletal: bilateral: ankle swelling, foot swelling, absent: ankle pain, ankle stiffness, as per HPI, elbow pain, elbow stiffness, elbow swelling, foot pain, foot stiffness, hand pain, hand stiffness, hand swelling, hip pain, hip stiffness, hip swelling, knee pain, knee stiffness, knee swelling, shoulder pain, shoulder stiffness, shoulder swelling, wrist pain, wrist stiffness, wrist swelling Integumentary: Denies pruritus, Denies rash Neurological: Denies numbness, Denies weakness Psychiatric: Reports anxiety, Reports depression, Denies sadness/tearfulness, Denies sleep disturbances, Denies suicidal ideation Endocrine: report fatigue, Denies weight change Objective - Vital Signs Vital signs: Vital Signs Temp 97.9 F 04/22/19 04:00 Pulse 87 04/22/19 07:01 Resp 20 04/22/19 07:01 BP 116/60 04/22/19 07:01 Pulse Ox 95 04/22/19 07:45 Intake & Output 04/21/19 04/22/19 04/22/19 18:59 06:59 18:59 Intake Total 1660 1220 75 Output Total 1300 1350 0 Balance 360 -130 75 Weight 105.3 kg Intake: IV 900 900 75 0.9 825 900 75 Sodium Chloride 0.9% 1, 75 000 ml @ 75 mls/hr IV . [id number] [facility] Rx#:[id number] Oral 450 320 Blood Product 310 Rc Irr As1 Unit 310 [id number] Output: Urine 1300 1350 0 Other: Voiding Method Bedside Commode Bedside Commode # Voids 1 - Exam General Appearance: Alert, cooperative, no distress, appears stated age. Neck HEENT: lymphadenopathy Significant lymphadenopathy and the right posterior cervical submandibular right supraclavicular left axillary left inguinal. no thyroid enlargement, no carotid bruits. Lungs: Clear to auscultation without crackles or wheezes no rhonchi, no deformity. Chest Wall: Chest wall normal expansion with deep inspiration no tenderness and no deformity was found on exam, no costochondral pain or discomfort. Heart: Regular rate and rhythm, S1, S2 normal, systolic murmur, no rub or gallop. Back: Symmetric, no curvature, ROM normal, no CVA tenderness. Abdomen: Soft, non-tender, no rebound or rigidity, no hepatosplenomegaly. Extremities: 2+ pitting edema bilateral lower extremities, atraumatic, no cyanosis. Pulses: 2+ and symmetric. Skin: Skin color, texture, tugor normal, no rashes or lesions. Neurologic: Alert oriented x3 cranial nerves II through XII intact, no motor deficit, no abnormal balance or gait - Labs CBC & Chem 7: 04/22/19 04:25 04/22/19 04:25 Labs: Abnormal Lab Results - Last 24 Hours (Table) 04/19/19 04/21/19 04/21/19 Range/Units 13:52 11:48 13:58 RBC 2.59 L (3.80-5.40) m/uL Hgb 8.1 L (11.4-16.0) gm/dL Hct 24.5 L (34.0-46.0) % RDW 18.1 H (11.5-15.5) % Plt Count 133 L (150-450) k/uL Lymphocytes # (1.0-4.8) k/uL Sodium (137-145) mmol/L Potassium (3.5-5.1) mmol/L Chloride (98-107) mmol/L Carbon Dioxide (22-30) mmol/L BUN (7-17) mg/dL Creatinine (0.52-1.04) mg/dL Glucose (74-99) mg/dL POC Glucose (mg/dL) 249 H (75-99) mg/dL Phosphorus (2.5-4.5) mg/dL Total Bilirubin (0.2-1.3) mg/dL AST (14-36) U/L Albumin (3.5-5.0) g/dL Crossmatch See Detail 04/21/19 04/21/19 04/21/19 Range/Units 16:50 20:40 22:19 RBC 2.48 L (3.80-5.40) m/uL Hgb 7.7 L (11.4-16.0) gm/dL Hct 23.5 L (34.0-46.0) % RDW 18.7 H (11.5-15.5) % Plt Count (150-450) k/uL Lymphocytes # (1.0-4.8) k/uL Sodium (137-145) mmol/L Potassium (3.5-5.1) mmol/L Chloride (98-107) mmol/L Carbon Dioxide (22-30) mmol/L BUN (7-17) mg/dL Creatinine (0.52-1.04) mg/dL Glucose (74-99) mg/dL POC Glucose (mg/dL) 223 H 232 H (75-99) mg/dL Phosphorus (2.5-4.5) mg/dL Total Bilirubin (0.2-1.3) mg/dL AST (14-36) U/L Albumin (3.5-5.0) g/dL Crossmatch 04/22/19 04/22/19 04/22/19 Range/Units 04:25 04:25 06:58 RBC 2.29 L (3.80-5.40) m/uL Hgb 7.2 L (11.4-16.0) gm/dL Hct 21.3 L (34.0-46.0) % RDW 18.6 H (11.5-15.5) % Plt Count 131 L (150-450) k/uL Lymphocytes # 0.2 L (1.0-4.8) k/uL Sodium 135 L (137-145) mmol/L Potassium 5.5 H (3.5-5.1) mmol/L Chloride 111 H (98-107) mmol/L Carbon Dioxide 17 L (22-30) mmol/L BUN 68 H (7-17) mg/dL Creatinine 1.14 H (0.52-1.04) mg/dL Glucose 157 H (74-99) mg/dL POC Glucose (mg/dL) 179 H (75-99) mg/dL Phosphorus 5.1 H (2.5-4.5) mg/dL Total Bilirubin 2.0 H (0.2-1.3) mg/dL AST 37 H (14-36) U/L Albumin 2.9 L (3.5-5.0) g/dL Crossmatch Microbiology - Last 24 Hours (Table) 04/19/19 12:10 Blood Culture - Preliminary Blood No Growth after 48 hours Assessment and Plan Plan: 1. Severe symptomatic anemia with a new diagnosis of T-cell lymphoma CD30(final pathologic report is not available yet he was sent to the [facility] for second opinion) with possible AIHA due to her malignancy. Haptoglobin is still pending. Oncology consult appreciated. Patient has been started on De cadron today is day 4 of 4 days on. 2. Acute symptomatic anemia. the patient will be transfused a total of 3 units of packed RBCs.. 3. T-cell lymphoma CD30 positive. Likely will require chemotherapy await hematology oncology input.awaiting pathology report finalization. 4. Hypertension and hypertensive cardio vascular disease currently hypotensive discontinue Lotrel for now. 5. Hypotension with hypoperfusion creating lactic acidosis. Continue IV fluid resuscitation, admitted to the intensive care unit, consult Dr. Hurley. 6. Tumor lysis syndrome. Oncology is following. Patient is status post Elitek. 7. Diabetes mellitus type 2, uncontrolled with hyperglycemia secondary to s teroids. Continue NovoLog scale and increase Levemir to 18 units at bedtime. 8. Hyperlipidemia. Discontinue Crestor for now. 9. Hypothyroidism. Continue Synthroid increased to 75 g orally once every day. 10. Diverticulosis. Colonoscopy is up-to-date. 11. Recurrent Depression. Currently on Effexor XR 75 mg orally once every day. 12. DVT prophylaxis. Bilateral knee-high THA hose. 13. GI prophylaxis. Start the patient on Protonix 40 mg IV push every 24 hours. 14. Bicytopenia with anemia and thrombocytopenia secondary to underlying cancer. 15. Edema. IV fluids cut to 20 mL per hour, Lasix 40 mg IV once given. Code status: full code. Discharge plan: To be determined. Impression and plan of care have been directed as dictated by the signing physician. Lesia Cruz nurse practitioner acting as scribe for signing physician.
[2019-04-22] MEDS: PANTOPRAZOLE 40 MG/10 ML VIAL IVP SCH (08:33)
[2019-04-22] MEDS: VENLAFAXINE HCL 75 MG TAB PO SCH (08:34)
[2019-04-22] MEDS ORDERED: DEXAMETHASONE 4 MG TAB PO SCH (09:00)
[2019-04-22] MEDS ORDERED: FUROSEMIDE 10 MG/ML 4 ML VIAL IV STA (09:07)
--- NOTE | 2019-04-22 10:21 | PN ---
PROGRESS NOTE PULMONARY/CRITICAL CARE PROGRESS NOTE: DATE OF SERVICE: April 22, 2019 A 68-year-old female who was admitted on April 19. She had a recent diagnosis of lymphoma made by right supraclavicular lymph node biopsy. The specimens were evaluated here and sent to [facility] for further evaluation and classification. Anyway, the patient was admitted to the hospital because of complaints of just feeling weak and fatigued. She was noted to have a hemoglobin of 5.3. In addition, she had some hypotension. Since coming here, she has received a total of 3 units of blood. She is somewhat edematous. We are going to give her Lasix 40 mg IV push today and turn down her IVs from 75 mL an hour saline to KVO. She is not receiving any supplemental oxygen at this time. She does have a history of hypothyroidism, hypertension, hyperlipidemia, and diabetes. I did speak to her daughter both today and yesterday. In addition, she appears to have developed tumor lysis syndrome and received a Elitek. PHYSICAL EXAMINATION: VITAL SIGNS: Her current vital signs are reviewed. They include a temperature 98, heart rate 87, respiratory rate 16, blood pressure 114/64, mean 80, room air saturation 94%. GENERAL: Appears in no acute distress. HEENT examination is grossly unremarkable. Mucous membranes are moist. No oral lesions. NECK is supple. CARDIOVASCULAR examination reveals regular rhythm rate. S1, S2 normal. No S3, S4, or murmur. LUNGS: Reveal mostly clear breath sounds. No wheezes, rhonchi, or crackles. Breath sounds equal bilaterally. ABDOMEN is obese. Bowel sounds are heard. EXTREMITIES are intact. Mild edema. SKIN: Without rash. No skin. NEUROLOGIC: Examination is brief but nonfocal. White count 5.6, hemoglobin 7.2, hematocrit 21.3, platelet count 131,000. Sodium 135, potassium 5.5, chloride 111, CO2 17, anion gap is 7, BUN and creatinine were 68, 1.14. These electrolytes are consistent with a non-anion gap metabolic acidosis, probably related to the renal insufficiency. The patient's albumin is 2.9. Microbiology is thus far negative. No recent chest x-ray. MEDICATIONS: Medications are reviewed. She is on Levaquin empirically. ASSESSMENT: 1. Recent diagnosis of the lymph node biopsy, lymphoma, yet to be fully classified, with specimens currently being evaluated at [facility]. 2. Profound weakness, likely secondary to significant anemia and recent diagnosis of lymphoma. 3. Rule out sepsis, so far cultures negative. 4. Tumor lysis syndrome, improved. 5. Mild lactic acidemia, resolved. 6. Non-anion gap metabolic acidosis. 7. History of hypertension. 8. Hyperlipidemia by history. 9. Diabetes mellitus. 10.Poorly controlled hypothyroidism. 11.Mild thrombocytopenia. 12.Prerenal azotemia. 13.Hypercalcemia. 14.Hyperuricemia. PLAN: Currently, the patient will have her IVs turned down to KVO. We will give her Lasix 40 mg IV push. She has received a total of 3 units of RBCs. Additional recommendations and suggestions are forthcoming. Hopefully she will have a port placed before she leaves. Also, we should have some answers from [facility] in the next day or 2. We will continue to follow. Prognosis is guarded. MMMARKL / LISAN: [id number] /
--- NOTE | 2019-04-22 11:41 | P.GSCN ---
History of Present Illness Consult date: 04/22/19 Reason for Consult: New diagnosis of lymphoma History of present illness: We were consulted to see this patient for Port-A-Cath placement. Patient hospitalized with fatigue and weakness. Was found to be anemic. Patient had a biopsy of a right supraclavicular lymph node. Biopsy is showing lymphoma at this time. Remains in the ICU. Shortness of breath is improved. She has not had a port in the past. Review of Systems The patient denies any acute changes in vision or hearing, no dysphagia or odynophagia, no dysuria or hematuria, no headache, no runny nose, no rectal bleeding or melena, no unexplained weight loss Past Medical History Past Medical History: Cancer, Diabetes Mellitus, Hyperlipidemia, Hypertension, Thyroid Disorder Additional Past Medical History / Comment(s): Pt states she was told 04/18/19 that she has lymphoma-no treatment plan yet, recent hands/legs/feet edema, R breast cancer with lumpectomy and radiation treatments, NIDDM type II, hypothyroid, diverticular disease History of Any Multi-Drug Resistant Organisms: None Reported Past Surgical History: Breast Surgery, Section, Hysterectomy Additional Past Surgical History / Comment(s): 04/12/19 R supraclavicular lymph node core biopsy, right breast lumpectomy, colonoscopy Past Anesthesia/Blood Transfusion Reactions: No Reported Reaction Past Psychological History: No Psychological Hx Reported Additional Psychological History / Comment(s): Pt resides with her spouse. She is independent. She states lately though, she has not been driving, her spouse has been doing the driving. Smoking Status: Never smoker Past Alcohol Use History: Rare Past Drug Use History: None Reported - Past Family History Father Family Medical History: Myocardial Infarction (SC) (Father at age of 52 from CAD and congestive heart failure.) Additional Family Medical History / Comment(s): SC times 2-first SC at the age of 35yrs and from 2nd SC at the age of age 52 Mother Family Medical History: Cancer (Mother at the age of 74 from pink cancer.) Additional Family Medical History / Comment(s): Mother of pancreatic cancer in her 70s. Brother(s) History Unknown: Yes Sister(s) Family Medical History: Cancer (Patient has 2 sisters one of them with breast cancer.) Daughter(s) Family Medical History: No Reported History (Patient has one daughter who is an ICU nurse no major medical problems.) Son(s) Family Medical History: No Reported History (Patient has one son no major medical problems.) Medications and Allergies Home Medications Medication Instructions Recorded Confirmed Type amLODIPine BESYLATE/BENAZEPRIL 1 cap PO DAILY 10/09/13 04/19/19 History [Lotrel 5-40 mg Capsule] Levothyroxine Sodium [Levoxyl] 50 mcg PO DAILY 04/03/19 04/19/19 History Rosuvastatin Calcium [Crestor] 5 mg PO DAILY 04/03/19 04/19/19 History metFORMIN HCL [Glucophage] 500 mg PO BID 04/03/19 04/19/19 History Ibuprofen [Motrin] 800 mg PO TID 04/19/19 04/19/19 History Venlafaxine HCl [Effexor] 75 mg PO DAILY 04/19/19 04/19/19 History Allergies Allergy/AdvReac Type Severity Reaction Status Date / Time Penicillins Allergy Unknown Rash/Hives Verified 04/19/19 13:06 Surgical - Exam Vital Signs Temp Pulse Resp BP Pulse Ox 99.6 F 109 H 16 91/34 99 04/19/19 11:54 04/19/19 11:54 04/19/19 11:54 04/19/19 11:54 04/19/19 11:54 Physical exam: General: Well-developed, well-nourished HEENT: Normocephalic, sclerae nonicteric Abdomen: Nontender, nondistended Extremities: No edema Neuro: Alert and oriented Results - Labs 04/22/19 04:25 04/22/19 04:25 Abnormal Lab Results - Last 24 Hours (Table) 04/19/19 04/21/19 04/21/19 Range/Units 13:52 11:48 13:58 RBC 2.59 L (3.80-5.40) m/uL Hgb 8.1 L (11.4-16.0) gm/dL Hct 24.5 L (34.0-46.0) % RDW 18.1 H (11.5-15.5) % Plt Count 133 L (150-450) k/uL Lymphocytes # (1.0-4.8) k/uL Sodium (137-145) mmol/L Potassium (3.5-5.1) mmol/L Chloride (98-107) mmol/L Carbon Dioxide (22-30) mmol/L BUN (7-17) mg/dL Creatinine (0.52-1.04) mg/dL Glucose (74-99) mg/dL POC Glucose (mg/dL) 249 H (75-99) mg/dL Phosphorus (2.5-4.5) mg/dL Total Bilirubin (0.2-1.3) mg/dL AST (14-36) U/L Albumin (3.5-5.0) g/dL Crossmatch See Detail 04/21/19 04/21/19 04/21/19 Range/Units 16:50 20:40 22:19 RBC 2.48 L (3.80-5.40) m/uL Hgb 7.7 L (11.4-16.0) gm/dL Hct 23.5 L (34.0-46.0) % RDW 18.7 H (11.5-15.5) % Plt Count (150-450) k/uL Lymphocytes # (1.0-4.8) k/uL Sodium (137-145) mmol/L Potassium (3.5-5.1) mmol/L Chloride (98-107) mmol/L Carbon Dioxide (22-30) mmol/L BUN (7-17) mg/dL Creatinine (0.52-1.04) mg/dL Glucose (74-99) mg/dL POC Glucose (mg/dL) 223 H 232 H (75-99) mg/dL Phosphorus (2.5-4.5) mg/dL Total Bilirubin (0.2-1.3) mg/dL AST (14-36) U/L Albumin (3.5-5.0) g/dL Crossmatch 04/22/19 04/22/19 04/22/19 Range/Units 04:25 04:25 06:58 RBC 2.29 L (3.80-5.40) m/uL Hgb 7.2 L (11.4-16.0) gm/dL Hct 21.3 L (34.0-46.0) % RDW 18.6 H (11.5-15.5) % Plt Count 131 L (150-450) k/uL Lymphocytes # 0.2 L (1.0-4.8) k/uL Sodium 135 L (137-145) mmol/L Potassium 5.5 H (3.5-5.1) mmol/L Chloride 111 H (98-107) mmol/L Carbon Dioxide 17 L (22-30) mmol/L BUN 68 H (7-17) mg/dL Creatinine 1.14 H (0.52-1.04) mg/dL Glucose 157 H (74-99) mg/dL POC Glucose (mg/dL) 179 H (75-99) mg/dL Phosphorus 5.1 H (2.5-4.5) mg/dL Total Bilirubin 2.0 H (0.2-1.3) mg/dL AST 37 H (14-36) U/L Albumin 2.9 L (3.5-5.0) g/dL Crossmatch Microbiology - Last 24 Hours (Table) 04/19/19 12:10 Blood Culture - Preliminary Blood No Growth after 48 hours Diabetes panel 04/22/19 Range/Units 04:25 Sodium 135 L (137-145) mmol/L Potassium 5.5 H (3.5-5.1) mmol/L Chloride 111 H (98-107) mmol/L Carbon Dioxide 17 L (22-30) mmol/L BUN 68 H (7-17) mg/dL Creatinine 1.14 H (0.52-1.04) mg/dL Glucose 157 H (74-99) mg/dL Calcium 9.3 (8.4-10.2) mg/dL AST 37 H (14-36) U/L ALT 30 (4-34) U/L Alkaline Phosphatase 63 (38-126) U/L Total Protein 6.3 (6.3-8.2) g/dL Albumin 2.9 L (3.5-5.0) g/dL Calcium panel 04/22/19 Range/Units 04:25 Calcium 9.3 (8.4-10.2) mg/dL Phosphorus 5.1 H (2.5-4.5) mg/dL Albumin 2.9 L (3.5-5.0) g/dL Pituitary panel 04/22/19 Range/Units 04:25 Sodium 135 L (137-145) mmol/L Potassium 5.5 H (3.5-5.1) mmol/L Chloride 111 H (98-107) mmol/L Carbon Dioxide 17 L (22-30) mmol/L BUN 68 H (7-17) mg/dL Creatinine 1.14 H (0.52-1.04) mg/dL Glucose 157 H (74-99) mg/dL Calcium 9.3 (8.4-10.2) mg/dL Adrenal panel 04/22/19 Range/Units 04:25 Sodium 135 L (137-145) mmol/L Potassium 5.5 H (3.5-5.1) mmol/L Chloride 111 H (98-107) mmol/L Carbon Dioxide 17 L (22-30) mmol/L BUN 68 H (7-17) mg/dL Creatinine 1.14 H (0.52-1.04) mg/dL Glucose 157 H (74-99) mg/dL Calcium 9.3 (8.4-10.2) mg/dL Total Bilirubin 2.0 H (0.2-1.3) mg/dL AST 37 H (14-36) U/L ALT 30 (4-34) U/L Alkaline Phosphatase 63 (38-126) U/L Total Protein 6.3 (6.3-8.2) g/dL Albumin 2.9 L (3.5-5.0) g/dL Assessment and Plan (1) Lymphoma Narrative/Plan: Will proceed with Port-A-Cath placement earlier this week. Risks of bleeding, infection, DVT, pneumothorax, catheter malfunction, anesthesia related complications were discussed. The patient understands and wishes to proceed. Current Visit: Yes Status: Acute Priority: High Code(s): C85.90 - NON- HODGKIN LYMPHOMA, UNSPECIFIED, UNSPECIFIED SITE SNOMED Code(s): 946108788
[2019-04-22 11:52] LABS: Glucose,Whole Blood 235 mg/dL (75-99)
[2019-04-22] MEDS: LEVOFLOXACIN 250MG-D5W PMX 250 MG in DEXTROSE/WATER 1 50ML.BAG IVPB SCH (17:00)
[2019-04-22 17:02] LABS: Glucose,Whole Blood 209 mg/dL (75-99)
[2019-04-22 20:48] LABS: Glucose,Whole Blood 264 mg/dL (75-99)
[2019-04-22] MEDS: INSULIN DETEMIR (LEVEMIR) 100 UNIT/ML SYR SQ SCH (20:53)
[2019-04-22 21:30] LABS: Anisocytosis Slight; HGB 7.6 gm/dL (11.4-16.0); MCH 31.5 pg (25.0-35.0); MCHC 33.3 g/dL (31.0-37.0); MCV 94.7 fL (80.0-100.0); Macrocytosis Slight; Mean Platelet Volume 8.9; Platelet Count 142 k/uL (150-450); RBC 2.42 m/uL (3.80-5.40); RDW 18.6 % (11.5-15.5); WBC 6.1 k/uL (3.8-10.6)
[2019-04-23 04:46] LABS: Anisocytosis Slight; Basophils % (A) 0 %; Eosinophils % (A) 0 %; HCT 22.1 % (34.0-46.0); HGB 7.3 gm/dL (11.4-16.0); Lymphocytes # (A) 0.3 k/uL (1.0-4.8); Lymphocytes % (A) 6 %; MCH 31.4 pg (25.0-35.0); MCHC 33.1 g/dL (31.0-37.0); MCV 94.8 fL (80.0-100.0); Macrocytosis Slight; Monocytes # (A) 0.4 k/uL (0-1.0); Monocytes % (A) 7 %; Neutrophils % (A) 87 %; Platelet Count 129 k/uL (150-450); RBC 2.33 m/uL (3.80-5.40); RDW 18.5 % (11.5-15.5); WBC 5.8 k/uL (3.8-10.6)
[2019-04-23 04:57] LABS: Albumin 2.8 g/dL (3.5-5.0); Calcium 9.1 mg/dL (8.4-10.2); Phosphorus 4.8 mg/dL (2.5-4.5); Potassium 5.3 mmol/L (3.5-5.1); Total Bilirubin 2.1 mg/dL (0.2-1.3); Total Protein 6.1 g/dL (6.3-8.2); Uric Acid 6.6 mg/dL (3.7-7.4)
[2019-04-23 06:54] LABS: Glucose,Whole Blood 159 mg/dL (75-99)
[2019-04-23] MEDS: INSULIN ASPART (NovoLOG) 100 UNIT/ML VIAL SQ SCH ×4 (06:54→20:09)
[2019-04-23] MEDS: LEVOTHYROXINE 75 MCG TAB PO SCH (06:54)
[2019-04-23] MEDS: PANTOPRAZOLE 40 MG/10 ML VIAL IVP SCH (08:06)
[2019-04-23] MEDS: VENLAFAXINE HCL 75 MG TAB PO SCH (08:06)
--- NOTE | 2019-04-23 08:37 | P.PN ---
Subjective Progress Note Date: 04/23/19 This is a 68-year-old female one of my patient with a previous medical history significant for hypertension and hypertensive cardiovascular disease, hyperlipidemia, new diagnosis of diabetes mellitus type 2, history of breast cancer status post right lumpectomy with radiation therapy, diverticulosis, hypothyroidism, patient developed to have a a small lymph node in the back of her neck about 3 month ago and she was evaluated in my office at that time the lymph nodes were freely movable and small in size and eventually the lymph node got better for a bit and subsequently developed to have a significant lymphadenopathy in the right cervical and submandibular bilaterally along with right supraclavicular lymph node and left axillary and left inguinal lymph node, she went to Dr. Augustin's office for follow-up for her breast cancer surveillance and the patient underwent a biopsy of the supra clavicular lymph node on the right side that was done last week and the report just Back yesterday with T- cell lymphoma positive for CD30 was supposed to follow-up with her physical education teacher/oncologist on Wednesday for a treatment plan, the biopsy was sent to the [facility] for further recommendation and evaluation as well he shouldn't has been declining over the last week or so with poor appetite and increased edema in upper and lower extremities with increased abdominal distention and fatigue and generalized Megace and weakness and dark urine according to the patient I spoke with her daughter about 2 days ago and asked her to bring her to the ER if she is not improving patient showed up to the ER today and she was found to have hemoglobin of 5 significantly elevated LDH and bilirubin along with liver function test haptoglobin was still pending there were some concern of hemolytic anemia in view of her lymphoma, hematology oncology consult added and blood tests were ordered labs were drawn and the patient will be receiving 2 units of packed red blood cells after the antibodies are cleared through the blood bank ([facility]). Patient appears to be somewhat hypotensive a bit short of breath, she did receive 2 L of IV fluid at this point in time her blood pressure continues to be low, Lactic acid was high she would be admitted to the intensive care unit with consultation to Dr. Hurley for further evaluation recommendation. 04/20: Patient has been seen by oncology regarding lymphoma. They are waiting for subtype classification of pathology. Patient was started on Decadron. Lab work has been ordered for tumor lysis syndrome and patient was given 1 dose of Elitek. Patient is followed by Dr. Hurley as well. He has increased levothyroxine to 75 g. Repeat lab work reveals sodium 132, potassium 5.9, CO2 is 19, BUN 1266, creatinine 1.28. Repeat lactic acid is 3.4, phosphorus 5.6. Repeat uric acid normal at 5.3. Patient continues to shortness of breath with exertion. She complains of lightheadedness. She is waiting for blood transfusion. She denies having any chest pain or headache. Blood sugars are elevated running 197 at 212. Levemir will be added. 04/21: the patient is status post 2 units of packed RBCs and hemoglobin last evening was 7.1, this morning hemoglobin 6.7 and she is ordered for her third unit of packed RBCs. Patient has decreased urine output that is dark and IV fluids will continue at 75 mL per hour. Patient is not eating very much and Glucerna will be added for supplementation.she has been afebrile, heart rate 87, blood pressure 115/71, pulse ox 94% on room air. Family is hoping that the final pathology report will be available today. Awaiting further recommendations from oncology.blood sugars remain elevated despite starting L evemir last evening. Levemir will be increased to 18 units at bedtime. Continue NovoLog scale as well. 04/22: Patient is status post 3 units of PRBCs and hemoglobin is 7.2 this morning. Awaiting further information from [facility] for complete diagnosis. patient has been up in the [place]. Patient states that she feels stronger than she has prior to admission. Patient has 2+ pitting edema bilateral lower extremities. Urinary output has been 1 L over the night. Patient has been hemodynamically stable. Denies any dizziness lightheadedness or vision changes. 04/23: patient is up resting in the chair. Today is the first day of no steroids. Patient has been up in the [place]. Patient states that the swelling has decreased from yesterday and no difficulty breathing. patient s cheduled for a port placement early next week. Still awaiting results from [facility]. hemoglobin 7.3, hematocrit 22.1, potassium 5.3, BUN 63, creatinine 1.16,uric acid 6.6, phosphorus 4.6, magnesium 2.7. he has been hemodynamically stable. Denies any lightheadedness or efficiency. Review of Systems Constitutional: Reports anorexia, Reports fatigue, denies lethargy, Reports malaise, Reports sweats, Reports weakness Eyes: denies blurred vision, denies decreased vision Ears, nose, mouth and throat: Denies dysphagia, Denies neck lump, Denies swelling in throat, Denies sore throat Breasts: right: as per HPI (Right lumpectomy.) Cardiovascular: Reports decreased exercise tolerance improved, denies dyspnea on exertion, Reports leg edema improved, denies lightheadedness, denies rapid heart beat, Denies shortness of breath, Denies chest pain, Denies syncope Respiratory: Denies congestion, Denies cough, Denies cough with sputum, Denies home oxygen, Denies sleep apnea, Denies snoring, Denies wheezing Gastrointestinal: Reports bloating, Reports early satiety, Reports loss of appetite, Denies abdominal pain, Denies change in bowel habits, Denies coffee ground emesis, Denies heartburn, Denies hematemesis, Denies hematochezia, Denies melena, Denies nausea, Denies vomiting Genitourinary: Denies dysuria, Denies hematuria Menstruation: Reports postmenopausal Musculoskeletal: Reports muscle weakness, Denies frequent falls Musculoskeletal: bilateral: ankle swelling, foot swelling, absent: ankle pain, ankle stiffness, as per HPI, elbow pain, elbow stiffness, elbow swelling, foot pain, foot stiffness, hand pain, hand stiffness, hand swelling, hip pain, hip stiffness, hip swelling, knee pain, knee stiffness, knee swelling, shoulder pain, shoulder stiffness, shoulder swelling, wrist pain, wrist stiffness, wrist swelling Integumentary: Denies pruritus, Denies rash Neurological: Denies numbness, Denies weakness Psychiatric: Reports anxiety, Reports depression, Denies sadness/tearfulness, D enies sleep disturbances, Denies suicidal ideation Endocrine: report fatigue, Denies weight change Objective - Vital Signs Vital signs: Vital Signs Temp 98 F 04/23/19 04:00 Pulse 75 04/23/19 06:00 Resp 11 L 04/23/19 06:00 BP 114/66 04/23/19 06:00 Pulse Ox 94 L 04/23/19 06:00 Intake & Output 04/22/19 04/23/19 04/23/19 18:59 06:59 18:59 Intake Total 520 565 Output Total 4000 1225 Balance -3480 -660 Weight 105.9 kg Intake: IV 300 120 0.9 300 120 Oral 220 445 Output: Urine 4000 1225 Other: Voiding Method Bedside Commode # Voids 1 # Bowel Movements 1 - Exam General Appearance: Alert, cooperative, no distress, appears stated age. Neck HEENT: lymphadenopathy Significant lymphadenopathy and the right posterior cervical submandibular right supraclavicular left axillary left inguinal. no thyroid enlargement, no carotid bruits. Lungs: Clear to auscultation without crackles or wheezes no rhonchi, no deformity. Chest Wall: Chest wall normal expansion with deep inspiration no tenderness and no deformity was found on exam, no costochondral pain or discomfort. Heart: Regular rate and rhythm, S1, S2 normal, systolic murmur, no rub or gallop. Back: Symmetric, no curvature, ROM normal, no CVA tenderness. Abdomen: Soft, non-tender, no rebound or rigidity, no hepatosplenomegaly. Extremities: 2+ pitting edema bilateral lower extremities improved, atraumatic, no cyanosis. Pulses: 2+ and symmetric. Skin: Skin color, texture, tugor normal, no rashes or lesions. Neurologic: Alert oriented x3 cranial nerves II through XII intact, no motor deficit, no abnormal balance or gait - Labs CBC & Chem 7: 04/23/19 04:30 04/23/19 04:27 Labs: Abnormal Lab Results - Last 24 Hours (Table) 04/22/19 04/22/19 04/22/19 Range/Units 11:41 16:50 20:37 RBC (3.80-5.40) m/uL Hgb (11.4-16.0) gm/dL Hct (34.0-46.0) % RDW (11.5-15.5) % Plt Count (150-450) k/uL Lymphocytes # (1.0-4.8) k/uL Potassium (3.5-5.1) mmol/L Chloride (98-107) mmol/L BUN (7-17) mg/dL Creatinine (0.52-1.04) mg/dL Glucose (74-99) mg/dL POC Glucose (mg/dL) 235 H 209 H 264 H (75-99) mg/dL Phosphorus (2.5-4.5) mg/dL Total Bilirubin (0.2-1.3) mg/dL AST (14-36) U/L ALT (4-34) U/L Total Protein (6.3-8.2) g/dL Albumin (3.5-5.0) g/dL 04/22/19 04/23/19 04/23/19 Range/Units 21:14 04:27 04:30 RBC 2.42 L 2.33 L (3.80-5.40) m/uL Hgb 7.6 L 7.3 L (11.4-16.0) gm/dL Hct 23.0 L 22.1 L (34.0-46.0) % RDW 18.6 H 18.5 H (11.5-15.5) % Plt Count 142 L 129 L (150-450) k/uL Lymphocytes # 0.3 L (1.0-4.8) k/uL Potassium 5.3 H (3.5-5.1) mmol/L Chloride 110 H (98-107) mmol/L BUN 63 H (7-17) mg/dL Creatinine 1.16 H (0.52-1.04) mg/dL Glucose 180 H (74-99) mg/dL POC Glucose (mg/dL) (75-99) mg/dL Phosphorus 4.8 H (2.5-4.5) mg/dL Total Bilirubin 2.1 H (0.2-1.3) mg/dL AST 42 H (14-36) U/L ALT 39 H (4-34) U/L Total Protein 6.1 L (6.3-8.2) g/dL Albumin 2.8 L (3.5-5.0) g/dL 04/23/19 Range/Units 06:43 RBC (3.80-5.40) m/uL Hgb (11.4-16.0) gm/dL Hct (34.0-46.0) % RDW (11.5-15.5) % Plt Count (150-450) k/uL Lymphocytes # (1.0-4.8) k/uL Potassium (3.5-5.1) mmol/L Chloride (98-107) mmol/L BUN (7-17) mg/dL Creatinine (0.52-1.04) mg/dL Glucose (74-99) mg/dL POC Glucose (mg/dL) 159 H (75-99) mg/dL Phosphorus (2.5-4.5) mg/dL Total Bilirubin (0.2-1.3) mg/dL AST (14-36) U/L ALT (4-34) U/L Total Protein (6.3-8.2) g/dL Albumin (3.5-5.0) g/dL Microbiology - Last 24 Hours (Table) 04/19/19 12:10 Blood Culture - Preliminary Blood No Growth after 72 hours Assessment and Plan Plan: 1. Severe symptomatic anemia with a new diagnosis of T-cell lymphoma CD30(final pathologic report is not available yet he was sent to the [facility] for second opinion) with possible AIHA due to her malignancy. Haptoglobin is still pending. Oncology consult appreciated. Decadron on hold for the next 4 days. 2. Acute symptomatic anemia. post-transfusion 3 units packed red blood cells.hemoglobin 11.6 today 3. T-cell lymphoma CD30 positive. Likely will require chemotherapy await hematology oncology input.awaiting pathology report finalization. 4. Hypertension and hypertensive cardio vascular disease currently hypotensive discontinue Lotrel for now. 5. Hypotension with hypoperfusion creating lactic acidosis. IV fluid to KVO, admitted to the intensive care unit, pulmonary consult appreciated. 6. Tumor lysis syndrome. Oncology is following. Patient is status post Elitek. 7. Diabetes mellitus type 2, uncontrolled with hyperglycemia secondary to steroids. Continue NovoLog scale and increase Levemir to 18 units at bedtime. 8. Hyperlipidemia. Discontinue Crestor for now. 9. Hypothyroidism. Continue Synthroid increased to 75 g orally once every day. 10. Diverticulosis. Colonoscopy is up-to-date. 11. Recurrent Depression. Currently on Effexor XR 75 mg orally once every day. 12. DVT prophylaxis. Bilateral knee-high THA hose. 13. GI prophylaxis. Start the patient on Protonix 40 mg IV push every 24 hours. 14. Bicytopenia with anemia and thrombocytopenia secondary to underlying cance r. 15. Edema. IV fluids cut to 20 mL per hour, Lasix 40 mg IV once given. improved Code status: full code. Discharge plan: To be determined. Impression and plan of care have been directed as dictated by the signing physician. Lesia Cruz nurse practitioner acting as scribe for signing physician.
--- NOTE | 2019-04-23 08:43 | PN ---
PROGRESS NOTE PULMONARY/CRITICAL CARE PROGRESS NOTE: DATE OF SERVICE: April 23, 2019 This is a 68-year-old female admitted on April 19. She has a recent diagnosis of lymphoma made by right supraclavicular lymph node biopsy. The specimens were sent to [facility] for further evaluation and classification. The patient has not received any treatment as yet. She was admitted with a diagnosis of weakness and fatigue, and hemoglobin of 5.3. The patient has received a total of 3 units of blood since she has been here. Currently, her blood pressure is much better. Her overall situation has improved. She did receive some Lasix for edema yesterday. Her IV was turned down to 0.9 at 10 mL an hour. She is not receiving any supplemental oxygen. 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 She has a history of hypothyroidism, hypertension, hyperlipidemia, and diabetes. Her Synthroid dose was increased because her TSH was elevated. The patient is feeling a bit better overall. She has been seen by Oncology. She also saw Dr. Jaime yesterday and there is a plan for a port to be placed tomorrow so she can eventually start chemotherapy. PHYSICAL EXAMINATION: VITAL SIGNS: Current vital signs are reviewed. Temperature is 98. Heart rate 75, respiratory rate 11, blood pressure 114/66, mean 82. Room air saturation 94%. Appears in no acute distress. HEENT examination is grossly unremarkable. Mucous membranes are moist. NECK: Supple. Full range of motion. No adenopathy or thyromegaly. Neck veins are flat. CARDIOVASCULAR examination reveals regular rhythm and rate. S1, S2 normal. Heart rate 75. No murmur. LUNGS: Reveal clear breath sounds. No wheezes, rhonchi, or crackles. Breath sounds equal bilaterally. ABDOMEN: Soft. EXTREMITIES are intact. Mild edema. SKIN: Without rash. NEUROLOGIC brief but nonfocal. Microbiology is all negative. LABS: Reviewed. White count 5.8, hemoglobin 7.3, hematocrit 22.1, platelet count 129,000. Sodium 137, potassium 5.3, chloride 110. CO2 22 anion gap is 5. BUN and creatinine were 63 and 1.16. Glucose is 159, phosphorus 4.8, bilirubin 2.1. AST and ALT were 42 and 39 respectively. Albumin 2.8. No recent chest x-ray. MEDICATIONS: Medications are reviewed. She is currently on Tylenol, insulin, levofloxacin, Synthroid, Narcan, Protonix, and Effexor. ASSESSMENT: 1. Recent diagnosis of lymphoma, made by right supraclavicular lymph node biopsy, yet to be fully classify, with specimens currently being evaluated at [facility]. 2. Profound weakness, likely secondary to significant anemia and recent diagnosis of lymphoma, improved. 3. Rule out sepsis, so far cultures negative. 4. Tumor lysis syndrome, improved. 5. Mild lactic acidemia, resolved. 6. Non-anion gap metabolic acidosis. 7. History of hypertension. 8. History of hyperlipidemia by history. 9. Diabetes mellitus. 10.Hypothyroidism, poorly controlled. 11.Mild thrombocytopenia. 12.Prerenal azotemia. 13.Hypercalcemia. 14.Hyperuricemia. PLAN: Overall, the patient seemed to be doing a lot better. It appears that her tumor lysis syndrome is under better control, having received Elitek. Currently, her IV is a 0.9 at 10 mL an hour. She is not receiving any supplemental oxygen. We will continue to monitor her hemoglobin closely. She has received 3 units of blood since she has been here. Hopefully, we will have answers from [facility] the next day or so. Planned port placement tomorrow by Dr. Jaime. MMMARKL / LISAN: [id number] /
[2019-04-23 09:56] LABS: Magnesium 2.7 mg/dL (1.6-2.3); Phosphorus 4.6 mg/dL (2.5-4.5)
--- NOTE | 2019-04-23 10:40 | P.PN ---
Subjective Progress Note Date: 04/23/19 Principal diagnosis: Lymphoma patient doing well today. She was able to sleep well overnight. Hemoglobin today 7.3. No shortness of breath currently. Objective - Vital Signs Vital signs: Vital Signs Temp 98.7 F 04/23/19 08:00 Pulse 73 04/23/19 10:00 Resp 11 L 04/23/19 10:00 BP 119/64 04/23/19 10:00 Pulse Ox 95 04/23/19 10:00 Intake & Output 04/22/19 04/23/19 04/23/19 18:59 06:59 18:59 Intake Total 520 565 260 Output Total 4000 1225 300 Balance -3480 -660 -40 Weight 105.9 kg Intake: IV 300 120 40 0.9 300 120 40 Oral 220 445 220 Output: Urine 4000 1225 300 Other: Voiding Method Bedside Commode # Voids 1 1 # Bowel Movements 1 - Exam Abdomen: Soft, nontender, nondistended - Labs CBC & Chem 7: 04/23/19 04:30 04/23/19 04:27 Labs: Abnormal Lab Results - Last 24 Hours (Table) 04/22/19 04/22/19 04/22/19 Range/Units 11:41 16:50 20:37 RBC (3.80-5.40) m/uL Hgb (11.4-16.0) gm/dL Hct (34.0-46.0) % RDW (11.5-15.5) % Plt Count (150-450) k/uL Lymphocytes # (1.0-4.8) k/uL Potassium (3.5-5.1) mmol/L Chloride (98-107) mmol/L BUN (7-17) mg/dL Creatinine (0.52-1.04) mg/dL Glucose (74-99) mg/dL POC Glucose (mg/dL) 235 H 209 H 264 H (75-99) mg/dL Phosphorus (2.5-4.5) mg/dL Magnesium (1.6-2.3) mg/dL Total Bilirubin (0.2-1.3) mg/dL AST (14-36) U/L ALT (4-34) U/L Total Protein (6.3-8.2) g/dL Albumin (3.5-5.0) g/dL 04/22/19 04/23/19 04/23/19 Range/Units 21:14 04:27 04:27 RBC 2.42 L (3.80-5.40) m/uL Hgb 7.6 L (11.4-16.0) gm/dL Hct 23.0 L (34.0-46.0) % RDW 18.6 H (11.5-15.5) % Plt Count 142 L (150-450) k/uL Lymphocytes # (1.0-4.8) k/uL Potassium 5.3 H (3.5-5.1) mmol/L Chloride 110 H (98-107) mmol/L BUN 63 H (7-17) mg/dL Creatinine 1.16 H (0.52-1.04) mg/dL Glucose 180 H (74-99) mg/dL POC Glucose (mg/dL) (75-99) mg/dL Phosphorus 4.8 H 4.6 H (2.5-4.5) mg/dL Magnesium 2.7 H (1.6-2.3) mg/dL Total Bilirubin 2.1 H (0.2-1.3) mg/dL AST 42 H (14-36) U/L ALT 39 H (4-34) U/L Total Protein 6.1 L (6.3-8.2) g/dL Albumin 2.8 L (3.5-5.0) g/dL 04/23/19 04/23/19 Range/Units 04:30 06:43 RBC 2.33 L (3.80-5.40) m/uL Hgb 7.3 L (11.4-16.0) gm/dL Hct 22.1 L (34.0-46.0) % RDW 18.5 H (11.5-15.5) % Plt Count 129 L (150-450) k/uL Lymphocytes # 0.3 L (1.0-4.8) k/uL Potassium (3.5-5.1) mmol/L Chloride (98-107) mmol/L BUN (7-17) mg/dL Creatinine (0.52-1.04) mg/dL Glucose (74-99) mg/dL POC Glucose (mg/dL) 159 H (75-99) mg/dL Phosphorus (2.5-4.5) mg/dL Magnesium (1.6-2.3) mg/dL Total Bilirubin (0.2-1.3) mg/dL AST (14-36) U/L ALT (4-34) U/L Total Protein (6.3-8.2) g/dL Albumin (3.5-5.0) g/dL Microbiology - Last 24 Hours (Table) 04/19/19 12:10 Blood Culture - Preliminary Blood No Growth after 72 hours Assessment and Plan (1) Lymphoma Narrative/Plan: Will proceed with Port-A-Cath placement tomorrow. Risks of bleeding, infection, DVT, pneumothorax, catheter malfunction, anesthesia related complications were discussed. The patient understands and wishes to proceed. Current Visit: Yes Status: Acute Priority: High Code(s): C85.90 - NON- HODGKIN LYMPHOMA, UNSPECIFIED, UNSPECIFIED SITE SNOMED Code(s): 070324041
[2019-04-23 11:30] LABS: Glucose,Whole Blood 169 mg/dL (75-99)
--- NOTE | 2019-04-23 13:01 | ECHOF ---
Referral Reason:Lymphoma, pre chemo eval MEASUREMENTS -------- HEIGHT: 162.6 cm WEIGHT: 105.2 kg BP: 116/60 RVIDd: 3.7 cm (< 3.3) IVSd: 1.4 cm (0.6 - 1.1) LVIDd: 4.4 cm (3.9 - 5.3) LVPWd: 1.8 cm (0.6 - 1.1) IVSs: 1.7 cm LVIDs: 3.1 cm LVPWs: 1.9 cm LAESV Index (A-L): 25.19 ml/m Ao Diam: 3.1 cm (2.0 - 3.7) AV Cusp: 1.9 cm (1.5 - 2.6) LA Diam: 3.8 cm (2.7 - 3.8) MV EXCURSION: 17.332 mm (> 18.000) MV EF SLOPE: 33 mm/s (70 - 150) EPSS: 0.6 cm MV E Gene: 1.24 m/s MV DecT: 202 ms MV A Gene: 0.91 m/s MV E/A Ratio: 1.37 RAP: 5.00 mmHg RVSP: 31.05 mmHg FINDINGS -------- Sinus rhythm. This was a technically good study. The left ventricular size is normal. There is moderate concentric left ventricular hypertrophy. T here is normal global left ventricular contractility. Overall left ventricular systolic function is normal with, an EF between 55 - 60 %. Mitral Doppler inflow pattern suggests diastolic filling abn ormality 22.77. The right ventricle is mildly enlarged. Normal LA size by volume 22+/-6 ml/m2. The right atrial size is normal. Interatrial and interventricular septum intact. The aortic valve is trileaflet and appears structurally normal. There is no evidence of aortic regu rgitation. There is no evidence of aortic stenosis. [id number] mitral regurgitation is present. Mild tricuspid regurgitation present. There is no evidence of pulmonary hypertension. The right v entricular systolic pressure, as measured by Doppler, is 31.05mmHg. There is no pulmonic regurgitation present. The aortic root size is normal. IVC Not well visulized. There is no pericardial effusion. CONCLUSIONS -------- 1. Sinus rhythm. 2. This was a technically good study. 3. The left ventricular size is normal. 4. There is moderate concentric left ventricular hypertrophy. 5. There is normal global left ventricular contractility. 6. Overall left ventricular systolic function is normal with, an EF between 55 - 60 %. 7. Mitral Doppler inflow pattern suggest diastolic filling abnormality 22.77. 8. The right ventricle is mildly enlarged. 9. Normal LA size by volume 22+/-6 ml/m2. 10. The right atrial size is normal. 11. Interatrial and interventricular septum intact. 12. The aortic valve is trileaflet and appears structurally normal. 13. There is no evidence of aortic regurgitation. 14. There is no evidence of aortic stenosis. 15. Vkzh-rn-[id number] mitral regurgitation is present. 16. Mild tricuspid regurgitation present. 17. There is no evidence of pulmonary hypertension. 18. The right ventricular systolic pressure, as measured by Doppler, is 31.05mmHg. 19. There is no pulmonic regurgitation present. 20. The aortic root size is normal. 21. IVC Not well visulized. 22. There is no pericardial effusion. ROLLER SKATE REPAIRER: Tania Salazar RDCS
[2019-04-23 16:38] LABS: Glucose,Whole Blood 175 mg/dL (75-99)
[2019-04-23] MEDS: LEVOFLOXACIN 250MG-D5W PMX 250 MG in DEXTROSE/WATER 1 50ML.BAG IVPB SCH (17:44)
[2019-04-23] MEDS: SODIUM CHLORIDE 0.9% 1,000 ML IV SCH (17:44)
--- NOTE | 2019-04-23 18:12 | P.PN ---
Subjective Progress Note Date: 04/23/19 Principal diagnosis: lymphoma, anemia patient continues to complain of weakness, fatigue, had an extensive discussion with her today. Objective - Vital Signs Vital signs: Vital Signs Temp 98 F 04/23/19 16:00 Pulse 86 04/23/19 17:00 Resp 27 H 04/23/19 17:00 BP 115/68 04/23/19 17:00 Pulse Ox 96 04/23/19 17:00 Intake & Output 04/22/19 04/23/19 04/23/19 18:59 06:59 18:59 Intake Total 520 565 750 Output Total 4000 1225 1200 Balance -3480 -660 -450 Weight 105.9 kg Intake: IV 300 120 90 0.9 300 120 40 Levofloxacin 250Mg-D5w 50 Pmx 250 mg In Dextrose/ Water 1 50ml.bag @ 50 mls /hr IVPB Q24H [facility] Rx#: [id number] Oral 220 445 440 Tube Feeding 220 Output: Urine 4000 1225 1200 Other: Voiding Method Bedside Commode # Voids 1 1 # Bowel Movements 1 - Exam The patient appeared well nourished and normally developed. Vital signs as documented. Head exam is unremarkable. No scleral icterus or corneal arcus noted. Neck is without jugular venous distension, thyromegaly, or carotid bruits. Carotid upstrokes are brisk bilaterally. Lungs are clear to auscultation and percussion. Cardiac exam reveals the PMI to be normally sized and situated. Rhythm is regular. First and second heart sounds normal. No murmurs, rubs or gallops. Abdominal exam reveals normal bowel sounds, no masses, no organomegaly and no aortic enlargement. Extremities are nonedematous and both femoral and pedal pulses are normal. - Labs CBC & Chem 7: 04/23/19 04:30 04/23/19 04:27 Labs: Abnormal Lab Results - Last 24 Hours (Table) 04/22/19 04/22/19 04/23/19 Range/Units 20:37 21:14 04:27 RBC 2.42 L (3.80-5.40) m/uL Hgb 7.6 L (11.4-16.0) gm/dL Hct 23.0 L (34.0-46.0) % RDW 18.6 H (11.5-15.5) % Plt Count 142 L (150-450) k/uL Lymphocytes # (1.0-4.8) k/uL Potassium 5.3 H (3.5-5.1) mmol/L Chloride 110 H (98-107) mmol/L BUN 63 H (7-17) mg/dL Creatinine 1.16 H (0.52-1.04) mg/dL Glucose 180 H (74-99) mg/dL POC Glucose (mg/dL) 264 H (75-99) mg/dL Phosphorus 4.8 H (2.5-4.5) mg/dL Magnesium (1.6-2.3) mg/dL Total Bilirubin 2.1 H (0.2-1.3) mg/dL AST 42 H (14-36) U/L ALT 39 H (4-34) U/L Total Protein 6.1 L (6.3-8.2) g/dL Albumin 2.8 L (3.5-5.0) g/dL 04/23/19 04/23/19 04/23/19 Range/Units 04:27 04:30 06:43 RBC 2.33 L (3.80-5.40) m/uL Hgb 7.3 L (11.4-16.0) gm/dL Hct 22.1 L (34.0-46.0) % RDW 18.5 H (11.5-15.5) % Plt Count 129 L (150-450) k/uL Lymphocytes # 0.3 L (1.0-4.8) k/uL Potassium (3.5-5.1) mmol/L Chloride (98-107) mmol/L BUN (7-17) mg/dL Creatinine (0.52-1.04) mg/dL Glucose (74-99) mg/dL POC Glucose (mg/dL) 159 H (75-99) mg/dL Phosphorus 4.6 H (2.5-4.5) mg/dL Magnesium 2.7 H (1.6-2.3) mg/dL Total Bilirubin (0.2-1.3) mg/dL AST (14-36) U/L ALT (4-34) U/L Total Protein (6.3-8.2) g/dL Albumin (3.5-5.0) g/dL 04/23/19 04/23/19 Range/Units 11:18 16:26 RBC (3.80-5.40) m/uL Hgb (11.4-16.0) gm/dL Hct (34.0-46.0) % RDW (11.5-15.5) % Plt Count (150-450) k/uL Lymphocytes # (1.0-4.8) k/uL Potassium (3.5-5.1) mmol/L Chloride (98-107) mmol/L BUN (7-17) mg/dL Creatinine (0.52-1.04) mg/dL Glucose (74-99) mg/dL POC Glucose (mg/dL) 169 H 175 H (75-99) mg/dL Phosphorus (2.5-4.5) mg/dL Magnesium (1.6-2.3) mg/dL Total Bilirubin (0.2-1.3) mg/dL AST (14-36) U/L ALT (4-34) U/L Total Protein (6.3-8.2) g/dL Albumin (3.5-5.0) g/dL Microbiology - Last 24 Hours (Table) 04/19/19 12:10 Blood Culture - Preliminary Blood No Growth after 96 hours Assessment and Plan Assessment: 68-year-old very pleasant female with a past medical history of hypertension and hypertensive cardiovascular disease, hyperlipidemia, di verticulosis, hypothyroidism, diabetes mellitus , history of breast cancer status post right lumpectomy with radiation therapy, 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 followed by radiation and 5 years of hormonal therapy completed 8 years ago patient developed to have a a small lymph node in the back of her neck about 3 month ago and she was evaluated in my office at that time the lymph nodes were freely movable and small in size and eventually the lymph node got better for a bit and subsequently developed to have a significant lymphadenopathy in the right cervical and submandibular bilaterally along with right supraclavicular lymph node and left axillary and left inguinal lymph node, underwent a biopsy of the supra clavicular lymph node on the right side that was done last week and the report just Back yesterday with T-cell lymphoma positive for CD30 was supposed to follow-up with 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 today's hemoglobin is 7.1. Continues to have hemolysis. - Will repeat haptoglobin LDH. Continue steroids, no evidence of any blood loss. - high-dose steroids beneficial for both hemolysis and lymphoproliferative disorder. - Continue to monitor and transfuse as needed. As the patient has an autoantibody, transfusion with least incompatible blood is recommended to keep hemoglobin greater than 7 - daily labs, check haptoglobin and LDH. 2. Aggressive T-cell lymphoma CD30 positive: - final pathology is still pending consultation at the [facility]. Based on results so far, and aggressive T-cell lymphoma is more likely. - the patient will need to start aggressive combination chemotherapy - echocardiogram - steroids 40 mg of Decadron daily, 4 days on and 4 days off. - planned for Mediport placement tomorrow. - monitor for tumor lysis syndrome. Will check magnesium, phosphorus, uric acid. 3. History of breast cancer: - status post lumpectomy stage I hormone positive, status post radiation and 5 years of hormonal therapy completed 8 years ago currently on surveillance. 4. Other comorbid conditions include Hypertension Diabetes mellitus type Hyperlipidemia. Hypothyroidism, Diverticulosis. Thank you for allowing me to participate in the care [place] [id number], [address] [place] [address] Office: [phone] Time with Patient: Greater than 30
[2019-04-23 19:25] LABS: Magnesium 2.4 mg/dL (1.6-2.3); Phosphorus 4.1 mg/dL (2.5-4.5); Uric Acid 6.2 mg/dL (3.7-7.4)
[2019-04-23] MEDS: INSULIN DETEMIR (LEVEMIR) 100 UNIT/ML SYR SQ SCH (20:09)
[2019-04-23 20:17] LABS: Glucose,Whole Blood 157 mg/dL (75-99)
[2019-04-23 21:23] LABS: Glucose,Whole Blood 134 mg/dL (75-99)
[2019-04-24 04:57] LABS: Anisocytosis Slight; HCT 23.6 % (34.0-46.0); HGB 7.8 gm/dL (11.4-16.0); MCH 31.4 pg (25.0-35.0); MCHC 33.3 g/dL (31.0-37.0); MCV 94.4 fL (80.0-100.0); Macrocytosis Slight; Mean Platelet Volume 8.5; Platelet Count 135 k/uL (150-450); RDW 18.7 % (11.5-15.5); WBC 3.8 k/uL (3.8-10.6)
[2019-04-24 05:07] LABS: Albumin 2.9 g/dL (3.5-5.0); Potassium 4.9 mmol/L (3.5-5.1); Total Bilirubin 3.6 mg/dL (0.2-1.3)
[2019-04-24 05:26] LABS: Band Neutrophils % 4 %; Eosinophils # (M) 0.04 k/uL (0-0.7); Lymphocytes # (M) 0.46 k/uL (1.0-4.8); Metamyelocytes # (M) 0.08 k/uL (0); Metamyelocytes % 2 %; Monocytes # (M) 0.65 k/uL (0-1.0); Neutrophils % (M) 64 %; Nucleated Red Blood Cells 0 /100 WBC (0-0); Total Cells Counted 200
[2019-04-24 05:29] LABS: Anisocytosis (M) Present; Toxic Granulation Present; Toxic Vacuolation Present
[2019-04-24] MEDS: INSULIN ASPART (NovoLOG) 100 UNIT/ML VIAL SQ SCH ×4 (06:44→20:48)
[2019-04-24] MEDS: LEVOTHYROXINE 75 MCG TAB PO SCH (06:47)
[2019-04-24 06:55] LABS: Glucose,Whole Blood 104 mg/dL (75-99)
[2019-04-24] MEDS: FOLIC ACID 1 MG TAB PO SCH (08:51)
[2019-04-24] MEDS: PANTOPRAZOLE 40 MG/10 ML VIAL IVP SCH (08:51)
[2019-04-24] MEDS: VENLAFAXINE HCL 75 MG TAB PO SCH (08:52)
--- NOTE | 2019-04-24 09:10 | P.PN ---
Subjective Progress Note Date: 04/24/19 68-year-old very pleasant female with a past medical history of hyp ertension and hypertensive cardiovascular disease, hyperlipidemia, diverticulosis, hypothyroidism, diabetes mellitus , history of breast cancer status post right lumpectomy with radiation therapy, 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 followed by radiation and 5 years of hormonal therapy completed 8 years ago patient developed to have a a small lymph node in the back of her neck about 3 month ago and she was evaluated in my office at that time the lymph nodes were freely movable and small in size and eventually the lymph node got better for a bit and subsequently developed to have a significant lymphadenopathy in the right cervical and submandibular bilaterally along with right supraclavicular lymph node and left axillary and left inguinal lymph node, underwent a biopsy of the supra clavicular lymph node on the right side that was done last week and the report just Back yesterday with T-cell lymphoma positive for CD30 was supposed to follow-up with 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 There was mild to moderate mitral regurgitation. No evidence of any pulmonary hypertension. Currently she is still receiving IV fluids at the rate of 20 mL an hour. The patient is also on Levemir insulin 18 units along with SSKI coverage. She is taking Decadron 4 days on 4 days off. She is taking empiric antibiotic coverage with Levaquin. The cultures of been all negative. Hemoglobin is at 7.8. His at 52 with a creatinine of 1.01. Calcium level has normalized. Uric acid level has also dropped down to 6.2. Is afebrile. She is on room air oxygen. She has no specific complaints for now. She is awaiting a Mediport insertion with subsequent follow-up regarding her T-cell lymphoma which is CD30 positive. Objective - Vital Signs Vital signs: Vital Signs Temp 98.0 F 04/24/19 04:00 Pulse 82 04/24/19 07:00 Resp 25 H 04/24/19 07:00 BP 102/59 04/24/19 07:00 Pulse Ox 94 L 04/24/19 07:00 Intake & Output 04/23/19 04/24/19 04/24/19 18:59 06:59 18:59 Intake Total 750 110 0 Output Total 1600 1100 0 Balance -850 -990 0 Weight 104.4 kg Intake: IV 90 10 0 0.9 40 10 0 Levofloxacin 250Mg-D5w 50 Pmx 250 mg In Dextrose/ Water 1 50ml.bag @ 50 mls /hr IVPB Q24H [facility] Rx#: [id number] Oral 440 100 Tube Feeding 220 Output: Urine 1600 1100 0 Other: Voiding Method Toilet # Voids 1 # Bowel Movements 1 - Exam The patient appeared well nourished and normally developed. Vital signs as documented. Head exam is unremarkable. No scleral icterus or corneal arcus noted. Neck is without jugular venous distension, thyromegaly, or carotid bruits. the patient has lymphadenopathy over the right supraclavicular area .Carotid upstrokes are brisk bilaterally. Lungs are clear to auscultation and percussion. Cardiac exam reveals the PMI to be normally sized and situated. Rhythm is regular. First and second heart sounds normal. No murmurs, rubs or gallops. Abdominal exam reveals normal bowel sounds, no masses, no organomegaly and no aortic enlargement. Extremities are nonedematous and both femoral and pedal pulses are normal. - Labs CBC & Chem 7: 04/24/19 04:34 04/24/19 04:33 Labs: Abnormal Lab Results - Last 24 Hours (Table) 04/23/19 04/23/19 04/23/19 Range/Units 04:27 11:18 16:26 RBC (3.80-5.40) m/uL Hgb (11.4-16.0) gm/dL Hct (34.0-46.0) % RDW (11.5-15.5) % Plt Count (150-450) k/uL Lymphocytes # (Manual) (1.0-4.8) k/uL Metamyelocytes # (Man) (0) k/uL Chloride (98-107) mmol/L BUN (7-17) mg/dL Glucose (74-99) mg/dL POC Glucose (mg/dL) 169 H 175 H (75-99) mg/dL Phosphorus 4.6 H (2.5-4.5) mg/dL Magnesium 2.7 H (1.6-2.3) mg/dL Total Bilirubin (0.2-1.3) mg/dL AST (14-36) U/L ALT (4-34) U/L Lactate Dehydrogenase (313-618) U/L Total Protein (6.3-8.2) g/dL Albumin (3.5-5.0) g/dL 04/23/19 04/23/19 04/23/19 Range/Units 18:40 20:06 21:12 RBC (3.80-5.40) m/uL Hgb (11.4-16.0) gm/dL Hct (34.0-46.0) % RDW (11.5-15.5) % Plt Count (150-450) k/uL Lymphocytes # (Manual) (1.0-4.8) k/uL Metamyelocytes # (Man) (0) k/uL Chloride (98-107) mmol/L BUN (7-17) mg/dL Glucose (74-99) mg/dL POC Glucose (mg/dL) 157 H 134 H (75-99) mg/dL Phosphorus (2.5-4.5) mg/dL Magnesium 2.4 H (1.6-2.3) mg/dL Total Bilirubin (0.2-1.3) mg/dL AST (14-36) U/L ALT (4-34) U/L Lactate Dehydrogenase 989 H (313-618) U/L Total Protein (6.3-8.2) g/dL Albumin (3.5-5.0) g/dL 04/24/19 04/24/19 04/24/19 Range/Units 04:33 04:34 06:43 RBC 2.50 L (3.80-5.40) m/uL Hgb 7.8 L (11.4-16.0) gm/dL Hct 23.6 L (34.0-46.0) % RDW 18.7 H (11.5-15.5) % Plt Count 135 L (150-450) k/uL Lymphocytes # (Manual) 0.46 L (1.0-4.8) k/uL Metamyelocytes # (Man) 0.08 H (0) k/uL Chloride 111 H (98-107) mmol/L BUN 52 H (7-17) mg/dL Glucose 104 H (74-99) mg/dL POC Glucose (mg/dL) 104 H (75-99) mg/dL Phosphorus (2.5-4.5) mg/dL Magnesium (1.6-2.3) mg/dL Total Bilirubin 3.6 H (0.2-1.3) mg/dL AST 78 H (14-36) U/L ALT 69 H (4-34) U/L Lactate Dehydrogenase (313-618) U/L Total Protein 6.0 L (6.3-8.2) g/dL Albumin 2.9 L (3.5-5.0) g/dL Microbiology - Last 24 Hours (Table) 04/19/19 12:10 Blood Culture - Preliminary Blood No Growth after 96 hours Assessment and Plan Plan: 1 T-cell lymphoma CD 30 positive, awaiting final pathology from [facility] 2 autoimmune hemolytic anemia and hemoglobin is stable at 7.3. Awaiting repeat LDH and haptoglobin. The patient is on steroidshim a Decadron, 40 mg for days 4 days off. 3 mild hyperuricemia, improved 4 mild hypercalcemia, improved 5 mild component of tumor lysis, improved 6 history of breast cancer postlumpectomy 7 diabetes mellitus 8 hypothyroidism 9 hyperlipidemia 10 hypertension 11 diverticulosis Plan Oxyhemoglobin. Monitor LDH. Monitor haptoglobin. Continue with Decadron per oncology. Mediport insertion today. Continue IV fluids. Monitor calcium level. Monitor uric acid level. Oncology to follow-up. Likely would need systemic chemotherapy plus or minus radiation therapy. She can transfer to medical oncology
--- NOTE | 2019-04-24 10:23 | P.PN ---
Subjective Progress Note Date: 04/24/19 Principal diagnosis: Symptomatic anemia In f/u today pt is feeling ok, no pain, palpitations, mild SOB with exertion and generalized weakness, she is eating and drinking well, no abd pain, mild bloating. Objective - Vital Signs Vital signs: Vital Signs Temp 98.4 F 04/24/19 08:00 Pulse 85 04/24/19 09:00 Resp 16 04/24/19 09:00 BP 109/56 04/24/19 09:00 Pulse Ox 95 04/24/19 09:00 Intake & Output 04/23/19 04/24/19 04/24/19 18:59 06:59 18:59 Intake Total 750 110 0 Output Total 1600 1100 400 Balance -850 -990 -400 Weight 104.4 kg Intake: IV 90 10 0 0.9 40 10 0 Levofloxacin 250Mg-D5w 50 Pmx 250 mg In Dextrose/ Water 1 50ml.bag @ 50 mls /hr IVPB Q24H [facility] Rx#: [id number] Oral 440 100 Tube Feeding 220 Output: Urine 1600 1100 400 Other: Voiding Method Toilet Toilet # Voids 1 # Bowel Movements 1 - Constitutional General appearance: Present: cooperative, no acute distress, obese - EENT Eyes: Present: EOMI, scleral icterus ENT: Present: hearing grossly normal, normal oropharynx - Respiratory Respiratory: bilateral: CTA - Cardiovascular Rhythm: regular Heart sounds: normal: S1, S2 Abnormal Heart Sounds: Present: systolic murmur. Absent: diastolic murmur, rub, S3 Gallop, S4 Gallop, click, other - Peripheral edema leg Peripheral Edema: bilateral: Trace - Gastrointestinal Gastrointestinal Comment(s): visible distension in the epigastric area General gastrointestinal: Present: distended, normal bowel sounds, soft. Absent: absent bowel sounds, decreased bowel sounds, hepatomegaly, hyperactive bowel sounds, organomegaly, rigid, scaphoid, splenomegaly, tenderness, umbilical hernia, ventral hernia - Integumentary Integumentary: Present: jaundiced, pale - Neurologic Neurologic: Present: CNII-XII intact - Musculoskeletal Musculoskeletal: Present: strength equal bilaterally - Psychiatric Psychiatric: Present: A&O x's 3, appropriate affect, intact judgment & insight - Labs CBC & Chem 7: 04/24/19 04:34 04/24/19 04:33 Labs: Abnormal Lab Results - Last 24 Hours (Table) 04/23/19 04/23/19 04/23/19 Range/Units 11:18 16:26 18:40 RBC (3.80-5.40) m/uL Hgb (11.4-16.0) gm/dL Hct (34.0-46.0) % RDW (11.5-15.5) % Plt Count (150-450) k/uL Lymphocytes # (Manual) (1.0-4.8) k/uL Metamyelocytes # (Man) (0) k/uL Chloride (98-107) mmol/L BUN (7-17) mg/dL Glucose (74-99) mg/dL POC Glucose (mg/dL) 169 H 175 H (75-99) mg/dL Magnesium 2.4 H (1.6-2.3) mg/dL Total Bilirubin (0.2-1.3) mg/dL AST (14-36) U/L ALT (4-34) U/L Lactate Dehydrogenase 989 H (313-618) U/L Total Protein (6.3-8.2) g/dL Albumin (3.5-5.0) g/dL 04/23/19 04/23/19 04/24/19 Range/Units 20:06 21:12 04:33 RBC (3.80-5.40) m/uL Hgb (11.4-16.0) gm/dL Hct (34.0-46.0) % RDW (11.5-15.5) % Plt Count (150-450) k/uL Lymphocytes # (Manual) (1.0-4.8) k/uL Metamyelocytes # (Man) (0) k/uL Chloride 111 H (98-107) mmol/L BUN 52 H (7-17) mg/dL Glucose 104 H (74-99) mg/dL POC Glucose (mg/dL) 157 H 134 H (75-99) mg/dL Magnesium (1.6-2.3) mg/dL Total Bilirubin 3.6 H (0.2-1.3) mg/dL AST 78 H (14-36) U/L ALT 69 H (4-34) U/L Lactate Dehydrogenase (313-618) U/L Total Protein 6.0 L (6.3-8.2) g/dL Albumin 2.9 L (3.5-5.0) g/dL 04/24/19 04/24/19 Range/Units 04:34 06:43 RBC 2.50 L (3.80-5.40) m/uL Hgb 7.8 L (11.4-16.0) gm/dL Hct 23.6 L (34.0-46.0) % RDW 18.7 H (11.5-15.5) % Plt Count 135 L (150-450) k/uL Lymphocytes # (Manual) 0.46 L (1.0-4.8) k/uL Metamyelocytes # (Man) 0.08 H (0) k/uL Chloride (98-107) mmol/L BUN (7-17) mg/dL Glucose (74-99) mg/dL POC Glucose (mg/dL) 104 H (75-99) mg/dL Magnesium (1.6-2.3) mg/dL Total Bilirubin (0.2-1.3) mg/dL AST (14-36) U/L ALT (4-34) U/L Lactate Dehydrogenase (313-618) U/L Total Protein (6.3-8.2) g/dL Albumin (3.5-5.0) g/dL Microbiology - Last 24 Hours (Table) 04/19/19 12:10 Blood Culture - Preliminary Blood No Growth after 96 hours - Imaging and Cardiology echo report reviewed Assessment and Plan (1) Lymphoma Narrative/Plan: New diagnosis, path results most consistent with lymphoma, sent to the [facility] for subtype classification, pending classification to begin treatment. Pulse dose Decadron x 4 days, 4 days off then, will initiate again until treatment started. ECHO report reviewed Port being placed today Current Visit: Yes Status: Acute Priority: High Code(s): C85.90 - NON- HODGKIN LYMPHOMA, UNSPECIFIED, UNSPECIFIED SITE SNOMED Code(s): 889914706 (2) At high risk of tumor lysis syndrome Narrative/Plan: S/P 1 dose of Elitek, TLS labs stable. Lab monitoring Current Visit: Yes Status: Acute Priority: High Code(s): Z91.89 - OTH PERSONAL RISK FACTORS, NOT ELSEWHERE CLASSIFIED SNOMED Code(s): 576661360 (3) Anemia Narrative/Plan: Result of likely a degree of marrow involvement with lymphoma and hemolysis based on lab work up. Hgb stable at this time. Current Visit: Yes Status: Acute Priority: High Code(s): D64.9 - ANEMIA, UNSPECIFIED SNOMED Code(s): 189278456 Plan: US ordered for abd distension and jaundice.
[2019-04-24 11:06] LABS: Parvovirus B-19 IgG Antibodies 3.45 INDEX (<=0.90); Parvovirus B-19 IgM Antibodies 3.46 INDEX (<=0.90)
[2019-04-24] MEDS ORDERED: MIDAZOLAM 2 MG/2 ML VIAL ONE (11:30)
[2019-04-24] MEDS ORDERED: PROPOFOL 10 MG/ML 20 ML VIAL IV ONE (11:30)
[2019-04-24] MEDS ORDERED: KETAMINE 10 MG/ML 20 ML VIAL ONE (11:30)
[2019-04-24] MEDS ORDERED: fentaNYL (PF) 50 MCG/ML 2 ML AMP ONE (11:30)
[2019-04-24 11:56] LABS: Bilirubin, Delta 0.9 mg/dL (0.0-0.2); Bilirubin,Unconjugated 2.6 mg/dL (0.0-1.1); Total Bilirubin 3.5 mg/dL (0.2-1.3)
[2019-04-24] MEDS ORDERED: LACTATED RINGERS 1,000 ML IV ONE ×2 (12:00)
[2019-04-24] MEDS ORDERED: LIDOCAINE (PF) 10 MG/ML 2 ML VIAL SQ ONE (12:03)
[2019-04-24] MEDS ORDERED: HEPARIN SODIUM,PORCINE 100 UNIT/ML 5 ML VIAL IV ONE (12:15)
[2019-04-24] MEDS ORDERED: HYDROmorphone 1 MG/ML 1 ML SYRINGE IVP PRN (12:41)
[2019-04-24] MEDS ORDERED: HYDROcodone/APAP 5-325MG 1 EACH TAB PO PRN (12:41)
--- NOTE | 2019-04-24 12:43 | P.OP ---
Date of Procedure: 04/24/19 Procedure(s) Performed: PREOPERATIVE DIAGNOSIS: lymphoma POSTOPERATIVE DIAGNOSIS: Same PROCEDURE: Port-A-Cath placement SURGEON: Yeni EBL: Minimal ANESTHESIA: Sedation COMPLICATIONS: None OPERATIVE PROCEDURE: Patient was brought and placed on the operative table in the supine position. The patient was sedated per anesthesia that time. The chest and neck were prepped and draped in usual sterile fashion. The ultrasound probe was used to identify the location of the right internal jugular vein. The skin was localized with lidocaine. The Seldinger needle was advanced into the IJ under ultrasound guidance. The wire was advanced through the needle under fluoroscopic guidance into the superior vena cava. The patient's central venous pressure did seem somewhat elevated. The course of the wire and the endoscopic evaluation of the needle entrance site into the internal jugular vein was confirmed. A port pocket was created in the right infraclavicular location. The catheter was tunneled from the wire entrance site to the port pocket. The port was then connected to the catheter. The dilator introducer was threaded over the guidewire. The guidewire and dilator were then removed. The catheter was advanced through the introducer and introducer was then removed. The tip was seen to be in the right atrial junction. Port was flushed with both saline and a Hep-Lock solution. There was good flow both in and out of the port. The port was sutured in underlying tissues using 3-0 silk sutures. The subcutaneous tissues were reapproximated using 3-0 Vicryl sutures and the skin at both locations using 4-0 Monocryl sutures. Skin glue and sterile dressings then applied. DISPOSITION: Stable to recovery room
[2019-04-24 12:57] LABS: Glucose,Whole Blood 121 mg/dL (75-99)
--- NOTE | 2019-04-24 12:59 | FL ---
Fluoroscopy HISTORY: Port-A-Cath insertion 24 seconds fluoroscopy time supplied to the referring clinician. 2 intraoperative C-arm images docum ent the procedure. See dictated report from general surgery.
--- NOTE | 2019-04-24 13:20 | XR ---
EXAMINATION TYPE: XR chest 1V confirm line [facility] DATE OF EXAM: 04/24/2019 COMPARISON: Prior chest x-ray 04/19/2019 HISTORY: Status post central catheter placement TECHNIQUE: Single frontal view of the chest is obtained. FINDINGS: Right jugular central venous catheter has been place, port is in the right pectoral region , distal tip of the catheter at the level of the cavoatrial junction. Lung volumes are low. Heart siz e appears accentuated. Central vascularity is prominent. There is no evident pneumothorax or pleural effusion. Difficult to exclude underlying mediastinal or hilar adenopathy. IMPRESSION: No evident complication status post central venous catheter placement. Expiratory rotate d exam as described.
[2019-04-24 13:51] LABS: Glucose,Whole Blood 127 mg/dL (75-99)
--- NOTE | 2019-04-24 14:43 | P.PN ---
Subjective Progress Note Date: 04/24/19 This is a 68-year-old female one of my patient with a previous medical history significant for hypertension and hypertensive cardiovascular disease, hyperlipidemia, new diagnosis of diabetes mellitus type 2, history of breast cancer status post right lumpectomy with radiation therapy, diverticulosis, hypothyroidism, patient developed to have a a small lymph node in the back of her neck about 3 month ago and she was evaluated in my office at that time the lymph nodes were freely movable and small in size and eventually the lymph node got better for a bit and subsequently developed to have a significant lymphadenopathy in the right cervical and submandibular bilaterally along with right supraclavicular lymph node and left axillary and left inguinal lymph node, she went to Dr. Augustin's office for follow-up for her breast cancer surveillance and the patient underwent a biopsy of the supra clavicular lymph node on the right side that was done last week and the report just Back yesterday with T- cell lymphoma positive for CD30 was supposed to follow-up with her well logging captain/oncologist on Wednesday for a treatment plan, the biopsy was sent to the [facility] for further recommendation and evaluation as well he shouldn't has been declining over the last week or so with poor appetite and increased edema in upper and lower extremities with increased abdominal distention and fatigue and generalized Megace and weakness and dark urine according to the patient I spoke with her daughter about 2 days ago and asked her to bring her to the ER if she is not improving patient showed up to the ER today and she was found to have hemoglobin of 5 significantly elevated LDH and bilirubin along with liver function test haptoglobin was still pending there were some concern of hemolytic anemia in view of her lymphoma, hematology oncology consult added and blood tests were ordered labs were drawn and the patient will be receiving 2 units of packed red blood cells after the antibodies are cleared through the blood bank ([facility]). Patient appears to be somewhat hypotensive a bit short of breath, she did receive 2 L of IV fluid at this point in time her blood pressure continues to be low, Lactic acid was high she would be admitted to the intensive care unit with consultation to Dr. Hurley for further evaluation recommendation. 04/20: Patient has been seen by oncology regarding lymphoma. They are waiting for subtype classification of pathology. Patient was started on Decadron. Lab work has been ordered for tumor lysis syndrome and patient was given 1 dose of Elitek. Patient is followed by Dr. Hurley as well. He has increased levothyroxine to 75 g. Repeat lab work reveals sodium 132, potassium 5.9, CO2 is 19, BUN 1266, creatinine 1.28. Repeat lactic acid is 3.4, phosphorus 5.6. Repeat uric acid normal at 5.3. Patient continues to shortness of breath with exertion. She complains of lightheadedness. She is waiting for blood transfusion. She denies having any chest pain or headache. Blood sugars are elevated running 197 at 212. Levemir will be added. 04/21: the patient is status post 2 units of packed RBCs and hemoglobin last evening was 7.1, this morning hemoglobin 6.7 and she is ordered for her third unit of packed RBCs. Patient has decreased urine output that is dark and IV fluids will continue at 75 mL per hour. Patient is not eating very much and Glucerna will be added for supplementation.she has been afebrile, heart rate 87, blood pressure 115/71, pulse ox 94% on room air. Family is hoping that the final pathology report will be available today. Awaiting further recommendations from oncology.blood sugars remain elevated despite starting Levemir last evening. Levemir will be increased to 18 units at bedtime. Continue NovoLog scale as well. 04/22: Patient is status post 3 units of PRBCs and hemoglobin is 7.2 this morning. Awaiting further information from [facility] for [facility] diagnosis. patient has been up in the [place] walking. Patient states that she feels stronger than she has prior to admission. Patient has 2+ pitting edema bilateral lower extremities. Urinary output has been 1 L over the night. Patient has been hemodynamically stable. Denies any dizziness lightheadedness or vision changes. 04/23: patient is up resting in the chair. Today is the first day of no steroids. Patient has been up in the [place] walking. Patient states that the swelling has decreased from yesterday and no difficulty breathing. patient scheduled for a port placement early next week. Still awaiting results from [facility]. hemoglobin 7.3, hematocrit 22.1, potassium 5.3, BUN 63, creatinine 1.16,uric acid 6.6, phosphorus 4.6, magnesium 2.7. he has been hemodynamically stable. Denies any lightheadedness or efficiency. 04/24: patient remains in intensive care unit but waiting for a [facility] bed without telemetry. Patient is scheduled today for port placement with Dr. Jaime and an ultrasound of the abdomen due to elevated bilirubin. Tract bilirubin testing will be added. Patient is currently on IV fluids due to nothing by mouth status which will be discontinued following procedure and Lasix 20 mg given. Review of Systems Constitutional: Reports anorexia, Reports fatigue, denies lethargy, Reports malaise, Reports sweats, Reports weakness Eyes: denies blurred vision, denies decreased vision Ears, nose, mouth and throat: Denies dysphagia, Denies neck lump, Denies swelling in throat, Denies sore throat Cardiovascular: Reports decreased exercise tolerance improved, denies dyspnea on exertion, Reports leg edema improved, denies lightheadedness, denies rapid heart beat, Denies shortness of breath, Denies chest pain, Denies syncope Respiratory: Denies congestion, Denies cough, Denies cough with sputum, Denies home oxygen, Denies sleep apnea, Denies snoring, Denies wheezing Gastrointestinal: Reports bloating, Reports early satiety, Reports loss of appetite, Denies abdominal pain, Denies change in bowel habits, Denies coffee ground emesis, Denies heartburn, Denies hematemesis, Denies hematochezia, Denies melena, Denies nausea, Denies vomiting Genitourinary: Denies dysuria, Denies hematuria Menstruation: Reports postmenopausal Musculoskeletal: Reports muscle weakness, Denies frequent falls Musculoskeletal: bilateral: ankle swelling, foot swelling, absent: ankle pain, ankle stiffness, as per HPI, elbow pain, elbow stiffness, elbow swelling, foot pain, foot stiffness, hand pain, hand stiffness, hand swelling, hip pain, hip stiffness, hip swelling, knee pain, knee stiffness, knee swelling, shoulder pain, shoulder stiffness, shoulder swelling, wrist pain, wrist stiffness, wrist swelling Integumentary: Denies pruritus, Denies rash Neurological: Denies numbness, Denies weakness Psychiatric: Reports anxiety, Reports depression, Denies sadness/tearfulness, Denies sleep disturbances, Denies suicidal ideation Endocrine: report fatigue, Denies weight change Objective - Vital Signs Vital signs: Vital Signs Temp 98.4 F 04/24/19 08:00 Pulse 85 04/24/19 09:00 Resp 16 04/24/19 09:00 BP 109/56 04/24/19 09:00 Pulse Ox 95 04/24/19 09:00 Intake & Output 04/23/19 04/24/19 04/24/19 18:59 06:59 18:59 Intake Total 750 110 0 Output Total 1600 1100 400 Balance -850 -990 -400 Weight 104.4 kg Intake: IV 90 10 0 0.9 40 10 0 Levofloxacin 250Mg-D5w 50 Pmx 250 mg In Dextrose/ Water 1 50ml.bag @ 50 mls /hr IVPB Q24H [facility] Rx#: [id number] Oral 440 100 Tube Feeding 220 Output: Urine 1600 1100 400 Other: Voiding Method Toilet Toilet # Voids 1 # Bowel Movements 1 - Exam - Constitutional General appearance: average body habitus, no distress, resting in wheelchair, Appears comfortable - EENT Eyes: anicteric sclerae, EOMI, PERRLA, no ptosis, scleral icterus, normal appearance ENT: hearing grossly normal, NA/AT, normal oropharynx, no thrush Ears: bilateral: normal - Neck Neck: lymphadenopathy (Significant lymphadenopathy and the right posterior cervical submandibular right supraclavicular left axillary left inguinal .) Thyroid: bilateral: enlarged - Respiratory Respiratory: bilateral: diminished, negative: dullness, rales, rhonchi, wheezing, prolonged expiration - Cardiovascular Rhythm: regular Heart sounds: normal: S1, S2 Abnormal Heart Sounds: systolic murmur, no S3 Gallop, no S4 Gallop - Gastrointestinal General gastrointestinal: distended, hepatomegaly, organomegaly, soft, splenomegaly, no tenderness, no umbilical hernia, no ventral hernia - Integumentary Integumentary: pale - Neurologic Neurologic: CNII-XII intact - Musculoskeletal Musculoskeletal: gait normal, generalized weakness - Psychiatric Psychiatric: A&O x's 3, appropriate affect, intact judgment & insight - Labs CBC & Chem 7: 04/24/19 04:34 04/24/19 04:33 Labs: Abnormal Lab Results - Last 24 Hours (Table) 04/20/19 04/23/19 04/23/19 Range/Units 05:06 11:18 16:26 RBC (3.80-5.40) m/uL Hgb (11.4-16.0) gm/dL Hct (34.0-46.0) % RDW (11.5-15.5) % Plt Count (150-450) k/uL Lymphocytes # (Manual) (1.0-4.8) k/uL Metamyelocytes # (Man) (0) k/uL Chloride (98-107) mmol/L BUN (7-17) mg/dL Glucose (74-99) mg/dL POC Glucose (mg/dL) 169 H 175 H (75-99) mg/dL Magnesium (1.6-2.3) mg/dL Total Bilirubin (0.2-1.3) mg/dL AST (14-36) U/L ALT (4-34) U/L Lactate Dehydrogenase (313-618) U/L Total Protein (6.3-8.2) g/dL Albumin (3.5-5.0) g/dL Parvovirus B19 IgG Ab 3.45 H (<=0.90) INDEX Parvovirus B19 IgM Ab 3.46 H (<=0.90) INDEX 04/23/19 04/23/19 04/23/19 Range/Units 18:40 20:06 21:12 RBC (3.80-5.40) m/uL Hgb (11.4-16.0) gm/dL Hct (34.0-46.0) % RDW (11.5-15.5) % Plt Count (150-450) k/uL Lymphocytes # (Manual) (1.0-4.8) k/uL Metamyelocytes # (Man) (0) k/uL Chloride (98-107) mmol/L BUN (7-17) mg/dL Glucose (74-99) mg/dL POC Glucose (mg/dL) 157 H 134 H (75-99) mg/dL Magnesium 2.4 H (1.6-2.3) mg/dL Total Bilirubin (0.2-1.3) mg/dL AST (14-36) U/L ALT (4-34) U/L Lactate Dehydrogenase 989 H (313-618) U/L Total Protein (6.3-8.2) g/dL Albumin (3.5-5.0) g/dL Parvovirus B19 IgG Ab (<=0.90) INDEX Parvovirus B19 IgM Ab (<=0.90) INDEX 04/24/19 04/24/19 04/24/19 Range/Units 04:33 04:34 06:43 RBC 2.50 L (3.80-5.40) m/uL Hgb 7.8 L (11.4-16.0) gm/dL Hct 23.6 L (34.0-46.0) % RDW 18.7 H (11.5-15.5) % Plt Count 135 L (150-450) k/uL Lymphocytes # (Manual) 0.46 L (1.0-4.8) k/uL Metamyelocytes # (Man) 0.08 H (0) k/uL Chloride 111 H (98-107) mmol/L BUN 52 H (7-17) mg/dL Glucose 104 H (74-99) mg/dL POC Glucose (mg/dL) 104 H (75-99) mg/dL Magnesium (1.6-2.3) mg/dL Total Bilirubin 3.6 H (0.2-1.3) mg/dL AST 78 H (14-36) U/L ALT 69 H (4-34) U/L Lactate Dehydrogenase (313-618) U/L Total Protein 6.0 L (6.3-8.2) g/dL Albumin 2.9 L (3.5-5.0) g/dL Parvovirus B19 IgG Ab (<=0.90) INDEX Parvovirus B19 IgM Ab (<=0.90) INDEX Microbiology - Last 24 Hours (Table) 04/19/19 12:10 Blood Culture - Preliminary Blood No Growth after 96 hours Assessment and Plan Plan: 1. Severe symptomatic anemia with a new diagnosis of T-cell lymphoma CD30(final pathologic report is not available yet he was sent to the [facility] for second opinion) with possible AIHA due to her malignancy. Haptoglobin is still pending. Oncology consult appreciated. Off Decadron. patient on Levaquin per hotel reservationist. 2. Acute symptomatic anemia. the patient will be transfused a total of 3 units of packed RBCs.. 3. T-cell lymphoma CD30 positive. Likely will require chemotherapy await hematology oncology input.awaiting pathology report finalization. 4. Hypertension and hypertensive cardio vascular disease currently hypotensive discontinue Lotrel for now. 5. Hypotension with hypoperfusion creating lactic acidosis. Continue IV fluid resuscitation, admitted to the intensive care unit, consult Dr. Hurley. 6. Tumor lysis syndrome. Oncology is following. Patient is status post Elitek. 7. Diabetes mellitus type 2, uncontrolled with hyperglycemia secondary to steroids. Continue NovoLog scale and increase Levemir to 18 units at bedtime. 8. Hyperlipidemia. Discontinue Crestor for now. 9. Hypothyroidism. Continue Synthroid increased to 75 g orally once every day. 10. Diverticulosis. Colonoscopy is up-to-date. 11. Recurrent Depression. Currently on Effexor XR 75 mg orally once every day. 12. DVT prophylaxis. Bilateral knee-high THA hose. 13. GI prophylaxis. Protonix 40 mg IV push every 24 hours. 14. Bicytopenia with anemia and thrombocytopenia secondary to underlying cancer. 15. Edema secondary to IV fluids. IV fluids to be discontinued following procedures and Lasix 20 mg IV push. 16. Elevated bilirubin. Ultrasound of the abdomen. Direct bilirubin ordered Code status: full code. Discharge plan: To be determined. Impression and plan of care have been directed as dictated by the signing physician. Verito Veloz nurse practitioner acting as scribe for signing physician.
[2019-04-24] MEDS ORDERED: FUROSEMIDE 10 MG/ML 2 ML VIAL IV ONE (14:53)
--- NOTE | 2019-04-24 15:43 | US ---
EXAMINATION TYPE: US abdomen complete DATE OF EXAM: 04/24/2019 COMPARISON: CT CLINICAL HISTORY: distension and jaundice. EXAM MEASUREMENTS: Liver Length: 15.6 cm Gallbladder Wall: Surgically absent CBD: 0.8 cm Spleen: 19.5 cm Right Kidney: 12.3 x 5.9 x 5.3 cm Left Kidney: 12.5 x 6.2 x 4.8 cm Obese ICU patient done portable. Technically difficult and limited study. Pancreas: Obscured by bowel gas Liver: small amount of ascites seen on right, there is a coarse echotexture Gallbladder: Surgically absent Evidence for sonographic Chowdhury's sign: No CBD: very limited visualization, appears wnl as seen Spleen: limited visualization, splenomegaly Right Kidney: difficult to visualize, probable cysts, measures large Left Kidney: difficult to visualize, probable cysts, measures large Upper IVC: wnl Abd Aorta: seen only proximal, prox wnl Suspect cortical thinning within the kidneys. Cortical medullary differentiation is maintained.Exam i s limited technically. IMPRESSION: Correlate for hepatocellular disease. Splenomegaly. Small amount of ascites. Limited exam .
[2019-04-24 16:53] LABS: Glucose,Whole Blood 133 mg/dL (75-99)
[2019-04-24] MEDS: LEVOFLOXACIN 250MG-D5W PMX 250 MG in DEXTROSE/WATER 1 50ML.BAG IVPB SCH (17:36)
[2019-04-24] MEDS: SODIUM CHLORIDE 0.9% 1,000 ML IV SCH (19:51)
[2019-04-24 20:46] LABS: Glucose,Whole Blood 223 mg/dL (75-99)
[2019-04-24] MEDS: INSULIN DETEMIR (LEVEMIR) 100 UNIT/ML SYR SQ SCH (20:49)
[2019-04-25] MEDS: SODIUM CHLORIDE 0.9% 1,000 ML IV SCH ×2 (01:54→18:12)
[2019-04-25] MEDS: LEVOTHYROXINE 75 MCG TAB PO SCH (05:45)
[2019-04-25 06:58] LABS: Glucose,Whole Blood 139 mg/dL (75-99)
[2019-04-25 08:03] LABS: Anisocytosis Slight; Basophils % (A) 2 %; Eosinophils % (A) 2 %; HGB 6.3 gm/dL (11.4-16.0); Lymphocytes # (A) 0.3 k/uL (1.0-4.8); Lymphocytes % (A) 12 %; MCH 32.4 pg (25.0-35.0); MCHC 33.1 g/dL (31.0-37.0); MCV 98.1 fL (80.0-100.0); Macrocytosis Slight; Monocytes # (A) 0.2 k/uL (0-1.0); Monocytes % (A) 9 %; Neutrophils # (A) 1.6 k/uL (1.3-7.7); Neutrophils % (A) 73 %; RBC 1.94 m/uL (3.80-5.40); RDW 18.9 % (11.5-15.5); WBC 2.2 k/uL (3.8-10.6)
[2019-04-25 08:12] LABS: Albumin 2.5 g/dL (3.5-5.0); Calcium 8.2 mg/dL (8.4-10.2); Potassium 4.6 mmol/L (3.5-5.1); Total Bilirubin 5.3 mg/dL (0.2-1.3); Total Protein 5.6 g/dL (6.3-8.2)
[2019-04-25] MEDS: INSULIN ASPART (NovoLOG) 100 UNIT/ML VIAL SQ SCH ×6 (08:25→20:18)
[2019-04-25] MEDS: FOLIC ACID 1 MG TAB PO SCH (08:26)
[2019-04-25] MEDS: PANTOPRAZOLE 40 MG/10 ML VIAL IVP SCH (08:26)
[2019-04-25 08:35] LABS: Platelet Count 96 k/uL (150-450)
[2019-04-25] MEDS ORDERED: ONDANSETRON 4 MG/2 ML VIAL IVP PRN (09:00)
[2019-04-25] MEDS: VENLAFAXINE HCL 75 MG TAB PO SCH (09:09)
--- NOTE | 2019-04-25 10:26 | P.PN ---
Subjective Progress Note Date: 04/25/19 68-year-old very pleasant female with a past medical history of hyp ertension and hypertensive cardiovascular disease, hyperlipidemia, diverticulosis, hypothyroidism, diabetes mellitus , history of breast cancer status post right lumpectomy with radiation therapy, 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 followed by radiation and 5 years of hormonal therapy completed 8 years ago patient developed to have a a small lymph node in the back of her neck about 3 month ago and she was evaluated in my office at that time the lymph nodes were freely movable and small in size and eventually the lymph node got better for a bit and subsequently developed to have a significant lymphadenopathy in the right cervical and submandibular bilaterally along with right supraclavicular lymph node and left axillary and left inguinal lymph node, underwent a biopsy of the supra clavicular lymph node on the right side that was done last week and the report just Back yesterday with T-cell lymphoma positive for CD30 was supposed to follow-up with her business operations consultant/oncologist on Wednesday for a treatment plan, the biopsy was sent to the [facility] also developed severe hemolytic anemia, hemoglobin of 5 and elevated LDH and bilirubin is significant concern of hemolytic anemia, suspected tumor lysis syndrome, 1 dose of rasburicase given.the echocardiogram was also completed and the patient was found to have a preserved LV function w ith an ejection fraction of 55-60%. There was mild to moderate mitral regurgitation. No evidence of any pulmonary hypertension. Currently she is still receiving IV fluids at the rate of 20 mL an hour. The patient is also on Levemir insulin 18 units along with SSKI coverage. She is taking Decadron 4 days on 4 days off. She is taking empiric antibiotic coverage with Levaquin. The cultures of been all negative. Hemoglobin is at 7.8. His at 52 with a creatinine of 1.01. Calcium level has normalized. Uric acid level has also dropped down to 6.2. Is afebrile. She is on room air oxygen. She has no specific complaints for now. She is awaiting a Mediport insertion with subsequent follow-up regarding her T-cell lymphoma which is CD30 positive. on 04/25/2019 the patient out of the intensive care unit on a oncology floor. Hemoglobin has dropped down to 6.3 and the patient is going to receive a unit of packed RBC. Platelet counts are stable. She is leukopenic right now with a w abrtolo second of 2.2. The patienthas a Mediport them. She'll be started on systemic chemotherapy. Her LDH remains elevated. No fever. No chills. No altered mentation. No other complaints otherwise. Objective - Vital Signs Vital signs: Vital Signs Temp 97.6 F 04/25/19 05:44 Pulse 82 04/25/19 05:44 Resp 18 04/25/19 05:44 BP 110/65 04/25/19 05:44 Pulse Ox 96 04/25/19 05:44 Intake & Output 04/24/19 04/25/19 04/25/19 18:59 06:59 18:59 Intake Total 790 240 Output Total 2905 401 Balance -2114 Intake: IV 550 0.9 50 Levofloxacin 250Mg-D5w 50 Pmx 250 mg In Dextrose/ Water 1 50ml.bag @ 50 mls /hr IVPB Q24H [facility] Rx#: [id number] Oral 240 240 Output: Urine 2900 400 Stool 1 Estimated Blood Loss 5 Other: Voiding Method Toilet Toilet Toilet # Voids 1 - Exam The patient appeared well nourished and normally developed. Vital signs as documented. Head exam is unremarkable. No scleral icterus or corneal arcus noted. Neck is without jugular venous distension, thyromegaly, or carotid bruits. the patient has lymphadenopathy over the right supraclavicular area .Carotid upstrokes are brisk bilaterally. Lungs are clear to auscultation and percussion. Cardiac exam reveals the PMI to be normally sized and situated. Rhythm is regular. First and second heart sounds normal. No murmurs, rubs or gallops. Abdominal exam reveals normal bowel sounds, no masses, no organomegaly and no aortic enlargement. Extremities are nonedematous and both femoral and pedal pulses are normal. - Labs CBC & Chem 7: 04/25/19 07:21 04/25/19 07:21 Labs: Abnormal Lab Results - Last 24 Hours (Table) 04/19/19 04/20/19 04/23/19 Range/Units 13:52 05:06 18:40 WBC (3.8-10.6) k/uL RBC (3.80-5.40) m/uL Hgb (11.4-16.0) gm/dL Hct (34.0-46.0) % RDW (11.5-15.5) % Plt Count (150-450) k/uL Lymphocytes # (1.0-4.8) k/uL Haptoglobin <8.0 L (31.2-198.0) mg/dL Chloride (98-107) mmol/L BUN (7-17) mg/dL Glucose (74-99) mg/dL POC Glucose (mg/dL) (75-99) mg/dL Calcium (8.4-10.2) mg/dL Total Bilirubin (0.2-1.3) mg/dL Unconjugated Bilirubin (0.0-1.1) mg/dL Delta Bilirubin (0.0-0.2) mg/dL AST (14-36) U/L ALT (4-34) U/L Lactate Dehydrogenase (313-618) U/L Total Protein (6.3-8.2) g/dL Albumin (3.5-5.0) g/dL Parvovirus B19 IgG Ab 3.45 H (<=0.90) INDEX Parvovirus B19 IgM Ab 3.46 H (<=0.90) INDEX Reference Lab Result See [facility] REF Reports A 04/24/19 04/24/19 04/24/19 Range/Units 04:30 12:55 13:39 WBC (3.8-10.6) k/uL RBC (3.80-5.40) m/uL Hgb (11.4-16.0) gm/dL Hct (34.0-46.0) % RDW (11.5-15.5) % Plt Count (150-450) k/uL Lymphocytes # (1.0-4.8) k/uL Haptoglobin (31.2-198.0) mg/dL Chloride (98-107) mmol/L BUN (7-17) mg/dL Glucose (74-99) mg/dL POC Glucose (mg/dL) 121 H 127 H (75-99) mg/dL Calcium (8.4-10.2) mg/dL Total Bilirubin 3.5 H (0.2-1.3) mg/dL Unconjugated Bilirubin 2.6 H (0.0-1.1) mg/dL Delta Bilirubin 0.9 H (0.0-0.2) mg/dL AST (14-36) U/L ALT (4-34) U/L Lactate Dehydrogenase (313-618) U/L Total Protein (6.3-8.2) g/dL Albumin (3.5-5.0) g/dL Parvovirus B19 IgG Ab (<=0.90) INDEX Parvovirus B19 IgM Ab (<=0.90) INDEX Reference Lab Result 04/24/19 04/24/19 04/25/19 Range/Units 16:42 20:35 06:56 WBC (3.8-10.6) k/uL RBC (3.80-5.40) m/uL Hgb (11.4-16.0) gm/dL Hct (34.0-46.0) % RDW (11.5-15.5) % Plt Count (150-450) k/uL Lymphocytes # (1.0-4.8) k/uL Haptoglobin (31.2-198.0) mg/dL Chloride (98-107) mmol/L BUN (7-17) mg/dL Glucose (74-99) mg/dL POC Glucose (mg/dL) 133 H 223 H 139 H (75-99) mg/dL Calcium (8.4-10.2) mg/dL Total Bilirubin (0.2-1.3) mg/dL Unconjugated Bilirubin (0.0-1.1) mg/dL Delta Bilirubin (0.0-0.2) mg/dL AST (14-36) U/L ALT (4-34) U/L Lactate Dehydrogenase (313-618) U/L Total Protein (6.3-8.2) g/dL Albumin (3.5-5.0) g/dL Parvovirus B19 IgG Ab (<=0.90) INDEX Parvovirus B19 IgM Ab (<=0.90) INDEX Reference Lab Result 04/25/19 04/25/19 Range/Units 07:21 07:21 WBC 2.2 L (3.8-10.6) k/uL RBC 1.94 L (3.80-5.40) m/uL Hgb 6.3 L* D (11.4-16.0) gm/dL Hct 19.0 L* (34.0-46.0) % RDW 18.9 H (11.5-15.5) % Plt Count 96 L (150-450) k/uL Lymphocytes # 0.3 L (1.0-4.8) k/uL Haptoglobin (31.2-198.0) mg/dL Chloride 108 H (98-107) mmol/L BUN 45 H (7-17) mg/dL Glucose 124 H (74-99) mg/dL POC Glucose (mg/dL) (75-99) mg/dL Calcium 8.2 L (8.4-10.2) mg/dL Total Bilirubin 5.3 H (0.2-1.3) mg/dL Unconjugated Bilirubin (0.0-1.1) mg/dL Delta Bilirubin (0.0-0.2) mg/dL AST 59 H (14-36) U/L ALT 59 H (4-34) U/L Lactate Dehydrogenase 949 H (313-618) U/L Total Protein 5.6 L (6.3-8.2) g/dL Albumin 2.5 L (3.5-5.0) g/dL Parvovirus B19 IgG Ab (<=0.90) INDEX Parvovirus B19 IgM Ab (<=0.90) INDEX Reference Lab Result Microbiology - Last 24 Hours (Table) 04/19/19 12:10 Blood Culture - Preliminary Blood No Growth after 120 hours Assessment and Plan Plan: 1 T-cell lymphoma CD 30 positive, awaiting final pathology from [facility] 2 autoimmune hemolytic anemia . The patient was diagnosed having autoimmune hemolytic anemia. The patient was treated with Decadron. Hemoglobin dropped down to 6.3 and she is going to be transfused. The patient has elevated LDH. 3 mild hyperuricemia, improved 4 mild hypercalcemia, improved 5 mild component of tumor lysis, improved 6 history of breast cancer postlumpectomy 7 diabetes mellitus 8 hypothyroidism 9 hyperlipidemia 10 hypertension 11 diverticulosis Plan transfuse with packed RBC. Treatment of hemolytic anemia per oncology. We'll initiate systemic chemotherapy during her hospital stay.continue to follow the patient's urine and has to be basis. She is out of the intensive care unit for now. Hematology oncology is on the case.
--- NOTE | 2019-04-25 11:27 | P.PN ---
<Leila Bustos A - Last Filed: 04/25/19 11:26> Subjective Progress Note Date: 04/25/19 CHIEF COMPLAINT: Lymphoma HISTORY OF PRESENT ILLNESS: 68-year-old female who is status post right chest Port-A-Cath placement. Postoperative day #1. Patient examined at the bedside. She reports minimal tenderness to surgical site. Hemoglobin 6.3. Patient is to receive 1 unit packed RBCs today. PHYSICAL EXAM: VITAL SIGNS: Reviewed. GENERAL: Well-developed in no acute distress. HEENT: No sclera icterus. Extraocular movements grossly intact. Moist buccal mucosa. Head is atraumatic, normocephalic. ABDOMEN: Soft. Nondistended. Nontender. CHEST: Dressing to right chest Port-A-Cath site clean dry and intact. No surrounding erythema. Mild tenderness. NEUROLOGIC: Alert and oriented. Cranial nerves II through XII grossly intact. ASSESSMENT: 1. Lymphoma, status post right chest Port-A-Cath placement PLAN: Patient to receive 1 unit RBC per oncology today Patient doing well from a surgical standpoint after Port-A-Cath placement. Nurse practitioner note has been reviewed by physician. Signing provider agrees with the documented findings, assessment, and plan of care. Objective - Vital Signs Vital signs: Vital Signs Temp 97.6 F 04/25/19 05:44 Pulse 82 04/25/19 05:44 Resp 18 04/25/19 05:44 BP 110/65 04/25/19 05:44 Pulse Ox 96 04/25/19 05:44 Intake & Output 04/24/19 04/25/19 04/25/19 18:59 06:59 18:59 Intake Total 790 240 Output Total 2905 401 Balance -[id number] Intake: IV 550 0.9 50 Levofloxacin 250Mg-D5w 50 Pmx 250 mg In Dextrose/ Water 1 50ml.bag @ 50 mls /hr IVPB Q24H [facility] Rx#: [id number] Oral 240 240 Output: Urine 2900 400 Stool 1 Estimated Blood Loss 5 Other: Voiding Method Toilet Toilet Toilet # Voids 1 - Labs CBC & Chem 7: 04/25/19 07:21 04/25/19 07:21 Labs: Abnormal Lab Results - Last 24 Hours (Table) 04/19/19 04/23/19 04/24/19 Range/Units 13:52 18:40 04:30 WBC (3.8-10.6) k/uL RBC (3.80-5.40) m/uL Hgb (11.4-16.0) gm/dL Hct (34.0-46.0) % RDW (11.5-15.5) % Plt Count (150-450) k/uL Lymphocytes # (1.0-4.8) k/uL Haptoglobin <8.0 L (31.2-198.0) mg/dL Chloride (98-107) mmol/L BUN (7-17) mg/dL Glucose (74-99) mg/dL POC Glucose (mg/dL) (75-99) mg/dL Calcium (8.4-10.2) mg/dL Total Bilirubin 3.5 H (0.2-1.3) mg/dL Unconjugated Bilirubin 2.6 H (0.0-1.1) mg/dL Delta Bilirubin 0.9 H (0.0-0.2) mg/dL AST (14-36) U/L ALT (4-34) U/L Lactate Dehydrogenase (313-618) U/L Total Protein (6.3-8.2) g/dL Albumin (3.5-5.0) g/dL Reference Lab Result See BBK REF Reports A 04/24/19 04/24/19 04/24/19 Range/Units 12:55 13:39 16:42 WBC (3.8-10.6) k/uL RBC (3.80-5.40) m/uL Hgb (11.4-16.0) gm/dL Hct (34.0-46.0) % RDW (11.5-15.5) % Plt Count (150-450) k/uL Lymphocytes # (1.0-4.8) k/uL Haptoglobin (31.2-198.0) mg/dL Chloride (98-107) mmol/L BUN (7-17) mg/dL Glucose (74-99) mg/dL POC Glucose (mg/dL) 121 H 127 H 133 H (75-99) mg/dL Calcium (8.4-10.2) mg/dL Total Bilirubin (0.2-1.3) mg/dL Unconjugated Bilirubin (0.0-1.1) mg/dL Delta Bilirubin (0.0-0.2) mg/dL AST (14-36) U/L ALT (4-34) U/L Lactate Dehydrogenase (313-618) U/L Total Protein (6.3-8.2) g/dL Albumin (3.5-5.0) g/dL Reference Lab Result 04/24/19 04/25/19 04/25/19 Range/Units 20:35 06:56 07:21 WBC 2.2 L (3.8-10.6) k/uL RBC 1.94 L (3.80-5.40) m/uL Hgb 6.3 L* D (11.4-16.0) gm/dL Hct 19.0 L* (34.0-46.0) % RDW 18.9 H (11.5-15.5) % Plt Count 96 L (150-450) k/uL Lymphocytes # 0.3 L (1.0-4.8) k/uL Haptoglobin (31.2-198.0) mg/dL Chloride (98-107) mmol/L BUN (7-17) mg/dL Glucose (74-99) mg/dL POC Glucose (mg/dL) 223 H 139 H (75-99) mg/dL Calcium (8.4-10.2) mg/dL Total Bilirubin (0.2-1.3) mg/dL Unconjugated Bilirubin (0.0-1.1) mg/dL Delta Bilirubin (0.0-0.2) mg/dL AST (14-36) U/L ALT (4-34) U/L Lactate Dehydrogenase (313-618) U/L Total Protein (6.3-8.2) g/dL Albumin (3.5-5.0) g/dL Reference Lab Result 04/25/19 Range/Units 07:21 WBC (3.8-10.6) k/uL RBC (3.80-5.40) m/uL Hgb (11.4-16.0) gm/dL Hct (34.0-46.0) % RDW (11.5-15.5) % Plt Count (150-450) k/uL Lymphocytes # (1.0-4.8) k/uL Haptoglobin (31.2-198.0) mg/dL Chloride 108 H (98-107) mmol/L BUN 45 H (7-17) mg/dL Glucose 124 H (74-99) mg/dL POC Glucose (mg/dL) (75-99) mg/dL Calcium 8.2 L (8.4-10.2) mg/dL Total Bilirubin 5.3 H (0.2-1.3) mg/dL Unconjugated Bilirubin (0.0-1.1) mg/dL Delta Bilirubin (0.0-0.2) mg/dL AST 59 H (14-36) U/L ALT 59 H (4-34) U/L Lactate Dehydrogenase 949 H (313-618) U/L Total Protein 5.6 L (6.3-8.2) g/dL Albumin 2.5 L (3.5-5.0) g/dL Reference Lab Result Microbiology - Last 24 Hours (Table) 04/19/19 12:10 Blood Culture - Preliminary Blood No Growth after 120 hours <Hu Jaime - Last Filed: 04/25/19 20:56> Subjective As above. Patient doing well. Port-A-Cath was accessed just today for chemotherapy use. We'll follow as needed. Objective - Vital Signs Vital signs: Vital Signs Temp 98.5 F 04/25/19 12:54 Pulse 81 04/25/19 12:54 Resp 16 04/25/19 12:54 BP 117/57 04/25/19 12:54 Pulse Ox 95 04/25/19 12:54 Intake & Output 04/25/19 04/25/19 04/26/19 06:59 18:59 06:59 Intake Total 240 Output Total 401 Balance -161 Intake: Oral 240 Output: Urine 400 Stool 1 Other: Voiding Method Toilet Toilet # Voids 1 2 - Labs CBC & Chem 7: 04/25/19 07:21 04/25/19 07:21 Labs: Abnormal Lab Results - Last 24 Hours (Table) 04/19/19 04/24/19 04/25/19 Range/Units 13:52 04:33 06:56 WBC (3.8-10.6) k/uL RBC (3.80-5.40) m/uL Hgb (11.4-16.0) gm/dL Hct (34.0-46.0) % RDW (11.5-15.5) % Plt Count (150-450) k/uL Lymphocytes # (1.0-4.8) k/uL Haptoglobin <8.0 L (31.2-198.0) mg/dL Chloride (98-107) mmol/L BUN (7-17) mg/dL Glucose (74-99) mg/dL POC Glucose (mg/dL) 139 H (75-99) mg/dL Calcium (8.4-10.2) mg/dL Total Bilirubin (0.2-1.3) mg/dL AST (14-36) U/L ALT (4-34) U/L Lactate Dehydrogenase (313-618) U/L Total Protein (6.3-8.2) g/dL Albumin (3.5-5.0) g/dL Crossmatch Reference Lab Result See BBK REF Reports A 04/25/19 04/25/19 04/25/19 Range/Units 07:21 07:21 10:31 WBC 2.2 L (3.8-10.6) k/uL RBC 1.94 L (3.80-5.40) m/uL Hgb 6.3 L* D (11.4-16.0) gm/dL Hct 19.0 L* (34.0-46.0) % RDW 18.9 H (11.5-15.5) % Plt Count 96 L (150-450) k/uL Lymphocytes # 0.3 L (1.0-4.8) k/uL Haptoglobin (31.2-198.0) mg/dL Chloride 108 H (98-107) mmol/L BUN 45 H (7-17) mg/dL Glucose 124 H (74-99) mg/dL POC Glucose (mg/dL) (75-99) mg/dL Calcium 8.2 L (8.4-10.2) mg/dL Total Bilirubin 5.3 H (0.2-1.3) mg/dL AST 59 H (14-36) U/L ALT 59 H (4-34) U/L Lactate Dehydrogenase 949 H (313-618) U/L Total Protein 5.6 L (6.3-8.2) g/dL Albumin 2.5 L (3.5-5.0) g/dL Crossmatch See Detail Reference Lab Result 04/25/19 04/25/19 04/25/19 Range/Units 11:57 17:09 19:57 WBC (3.8-10.6) k/uL RBC (3.80-5.40) m/uL Hgb (11.4-16.0) gm/dL Hct (34.0-46.0) % RDW (11.5-15.5) % Plt Count (150-450) k/uL Lymphocytes # (1.0-4.8) k/uL Haptoglobin (31.2-198.0) mg/dL Chloride (98-107) mmol/L BUN (7-17) mg/dL Glucose (74-99) mg/dL POC Glucose (mg/dL) 149 H 181 H 225 H (75-99) mg/dL Calcium (8.4-10.2) mg/dL Total Bilirubin (0.2-1.3) mg/dL AST (14-36) U/L ALT (4-34) U/L Lactate Dehydrogenase (313-618) U/L Total Protein (6.3-8.2) g/dL Albumin (3.5-5.0) g/dL Crossmatch Reference Lab Result Microbiology - Last 24 Hours (Table) 04/19/19 12:10 Blood Culture - Final Blood No Growth after 144 hours Assessment and Plan (1) Lymphoma Current Visit: Yes Status: Acute Priority: High Code(s): C85.90 - NON- HODGKIN LYMPHOMA, UNSPECIFIED, UNSPECIFIED SITE SNOMED Code(s): 783902308
[2019-04-25 11:58] LABS: Glucose,Whole Blood 149 mg/dL (75-99)
--- NOTE | 2019-04-25 13:43 | P.PN ---
Subjective Progress Note Date: 04/25/19 Principal diagnosis: Symptomatic anemia Angioimmunoblastic T-cell lymphoma In f/u today pt is feeling ok, no pain, palpitations, mild SOB with exertion and generalized weakness, she is eating and drinking well, no abd pain, mild bloating, no bleeding, dysuria, diarrhea or constipation. Objective - Vital Signs Vital signs: Vital Signs Temp 98.5 F 04/25/19 12:54 Pulse 81 04/25/19 12:54 Resp 16 04/25/19 12:54 BP 117/57 04/25/19 12:54 Pulse Ox 95 04/25/19 12:54 Intake & Output 04/24/19 04/25/19 04/25/19 18:59 06:59 18:59 Intake Total 790 240 Output Total 2905 401 Balance -2114 Intake: IV 550 0.9 50 Levofloxacin 250Mg-D5w 50 Pmx 250 mg In Dextrose/ Water 1 50ml.bag @ 50 mls /hr IVPB Q24H [facility] Rx#: [id number] Oral 240 240 Output: Urine 2900 400 Stool 1 Estimated Blood Loss 5 Other: Voiding Method Toilet Toilet Toilet # Voids 1 - Constitutional General appearance: Present: average body habitus, cooperative, no acute distress - EENT Eyes: Present: EOMI, scleral icterus ENT: Present: hearing grossly normal, normal oropharynx - Neck Neck: Present: lymphadenopathy - Respiratory Respiratory: bilateral: CTA, diminished - Cardiovascular Rhythm: regular Heart sounds: normal: S1, S2 Abnormal Heart Sounds: Absent: systolic murmur, diastolic murmur, rub, S3 Gallop, S4 Gallop, click, other - Peripheral edema leg Peripheral Edema: bilateral: None - Gastrointestinal General gastrointestinal: Present: normal bowel sounds, soft. Absent: absent bowel sounds, decreased bowel sounds, distended, hepatomegaly, hyperactive bowel sounds, organomegaly, rigid, scaphoid, splenomegaly, tenderness, umbilical hernia, ventral hernia - Neurologic Neurologic: Present: CNII-XII intact - Musculoskeletal Musculoskeletal: Present: generalized weakness, strength equal bilaterally - Psychiatric Psychiatric: Present: A&O x's 3, appropriate affect, intact judgment & insight - Labs CBC & Chem 7: 04/25/19 07:21 04/25/19 07:21 Labs: Abnormal Lab Results - Last 24 Hours (Table) 04/19/19 04/23/19 04/24/19 Range/Units 13:52 18:40 04:33 WBC (3.8-10.6) k/uL RBC (3.80-5.40) m/uL Hgb (11.4-16.0) gm/dL Hct (34.0-46.0) % RDW (11.5-15.5) % Plt Count (150-450) k/uL Lymphocytes # (1.0-4.8) k/uL Haptoglobin <8.0 L <8.0 L (31.2-198.0) mg/dL Chloride (98-107) mmol/L BUN (7-17) mg/dL Glucose (74-99) mg/dL POC Glucose (mg/dL) (75-99) mg/dL Calcium (8.4-10.2) mg/dL Total Bilirubin (0.2-1.3) mg/dL AST (14-36) U/L ALT (4-34) U/L Lactate Dehydrogenase (313-618) U/L Total Protein (6.3-8.2) g/dL Albumin (3.5-5.0) g/dL Reference Lab Result See BBK REF Reports A 04/24/19 04/24/19 04/24/19 Range/Units 13:39 16:42 20:35 WBC (3.8-10.6) k/uL RBC (3.80-5.40) m/uL Hgb (11.4-16.0) gm/dL Hct (34.0-46.0) % RDW (11.5-15.5) % Plt Count (150-450) k/uL Lymphocytes # (1.0-4.8) k/uL Haptoglobin (31.2-198.0) mg/dL Chloride (98-107) mmol/L BUN (7-17) mg/dL Glucose (74-99) mg/dL POC Glucose (mg/dL) 127 H 133 H 223 H (75-99) mg/dL Calcium (8.4-10.2) mg/dL Total Bilirubin (0.2-1.3) mg/dL AST (14-36) U/L ALT (4-34) U/L Lactate Dehydrogenase (313-618) U/L Total Protein (6.3-8.2) g/dL Albumin (3.5-5.0) g/dL Reference Lab Result 04/25/19 04/25/19 04/25/19 Range/Units 06:56 07:21 07:21 WBC 2.2 L (3.8-10.6) k/uL RBC 1.94 L (3.80-5.40) m/uL Hgb 6.3 L* D (11.4-16.0) gm/dL Hct 19.0 L* (34.0-46.0) % RDW 18.9 H (11.5-15.5) % Plt Count 96 L (150-450) k/uL Lymphocytes # 0.3 L (1.0-4.8) k/uL Haptoglobin (31.2-198.0) mg/dL Chloride 108 H (98-107) mmol/L BUN 45 H (7-17) mg/dL Glucose 124 H (74-99) mg/dL POC Glucose (mg/dL) 139 H (75-99) mg/dL Calcium 8.2 L (8.4-10.2) mg/dL Total Bilirubin 5.3 H (0.2-1.3) mg/dL AST 59 H (14-36) U/L ALT 59 H (4-34) U/L Lactate Dehydrogenase 949 H (313-618) U/L Total Protein 5.6 L (6.3-8.2) g/dL Albumin 2.5 L (3.5-5.0) g/dL Reference Lab Result 04/25/19 Range/Units 11:57 WBC (3.8-10.6) k/uL RBC (3.80-5.40) m/uL Hgb (11.4-16.0) gm/dL Hct (34.0-46.0) % RDW (11.5-15.5) % Plt Count (150-450) k/uL Lymphocytes # (1.0-4.8) k/uL Haptoglobin (31.2-198.0) mg/dL Chloride (98-107) mmol/L BUN (7-17) mg/dL Glucose (74-99) mg/dL POC Glucose (mg/dL) 149 H (75-99) mg/dL Calcium (8.4-10.2) mg/dL Total Bilirubin (0.2-1.3) mg/dL AST (14-36) U/L ALT (4-34) U/L Lactate Dehydrogenase (313-618) U/L Total Protein (6.3-8.2) g/dL Albumin (3.5-5.0) g/dL Reference Lab Result Microbiology - Last 24 Hours (Table) 04/19/19 12:10 Blood Culture - Preliminary Blood No Growth after 120 hours Assessment and Plan (1) Lymphoma Narrative/Plan: New diagnosis, final path from [facility] reporting angioimmunoblastic T-cell lymphoma. Reviewed this final diagnosis with pt and . Did explain that this particular type of lymphoma is very aggressive in nature, as patient surly understands by her rapidly changing health. We discussed chemotherapy. Patient agrees to begin. She did have a port placed yesterday, chest wall looks good. Chemotherapy orders were sent to the pharmacy as well as to the unit, discussed the case with the RN. Treatment to begin today. Anticipate 5 day stay for urgent treatment. ECHO report reviewed Port placed Current Visit: Yes Status: Acute Priority: High Code(s): C85.90 - NON- HODGKIN LYMPHOMA, UNSPECIFIED, UNSPECIFIED SITE SNOMED Code(s): 831609749 (2) At high risk of tumor lysis syndrome Narrative/Plan: S/P 1 dose of Elitek, TLS labs stable. Lab monitoring daily as treatment starts Current Visit: Yes Status: Acute Priority: High Code(s): Z91.89 - OTH PERSONAL RISK FACTORS, NOT ELSEWHERE CLASSIFIED SNOMED Code(s): 151947955 (3) Anemia Narrative/Plan: Result of likely a degree of marrow involvement with lymphoma and hemolysis based on lab work up. Hgb down, labs suggestive of hemolysis, pt will start pred with treatment today. Conservative transfusions to keep Hgb 7 of greater. Current Visit: Yes Status: Acute Priority: High Code(s): D64.9 - ANEMIA, UNSPECIFIED SNOMED Code(s): 173472656 Plan: US ordered for abd distension and jaundice, no evidence of mechanical obstruction, some liver infiltration/disease, may be r/t lymphoma. Treatment starting today.
[2019-04-25] MEDS: INSULIN DETEMIR (LEVEMIR) 100 UNIT/ML SYR SQ SCH ×2 (13:59→20:18)
--- NOTE | 2019-04-25 15:13 | P.PN ---
Subjective Progress Note Date: 04/25/19 This is a 68-year-old female one of my patient with a previous medical history significant for hypertension and hypertensive cardiovascular disease, hyperlipidemia, new diagnosis of diabetes mellitus type 2, history of breast cancer status post right lumpectomy with radiation therapy, diverticulosis, hypothyroidism, patient developed to have a a small lymph node in the back of her neck about 3 month ago and she was evaluated in my office at that time the lymph nodes were freely movable and small in size and eventually the lymph node got better for a bit and subsequently developed to have a significant lymphadenopathy in the right cervical and submandibular bilaterally along with right supraclavicular lymph node and left axillary and left inguinal lymph node, she went to Dr. Augustin's office for follow-up for her breast cancer surveillance and the patient underwent a biopsy of the supra clavicular lymph node on the right side that was done last week and the report just Back yesterday with T- cell lymphoma positive for CD30 was supposed to follow-up with her miniature set designer/oncologist on Wednesday for a treatment plan, the biopsy was sent to the [facility] for further recommendation and evaluation as well he shouldn't has been declining over the last week or so with poor appetite and increased edema in upper and lower extremities with increased abdominal distention and fatigue and generalized Megace and weakness and dark urine according to the patient I spoke with her daughter about 2 days ago and asked her to bring her to the ER if she is not improving patient showed up to the ER today and she was found to have hemoglobin of 5 significantly elevated LDH and bilirubin along with liver function test haptoglobin was still pending there were some concern of hemolytic anemia in view of her lymphoma, hematology oncology consult added and blood tests were ordered labs were drawn and the patient will be receiving 2 units of packed red blood cells after the antibodies are cleared through the blood bank ([facility]). Patient appears to be somewhat hypotensive a bit short of breath, she did receive 2 L of IV fluid at this point in time her blood pressure continues to be low, Lactic acid was high she would be admitted to the intensive care unit with consultation to Dr. Hurley for further evaluation recommendation. 04/20: Patient has been seen by oncology regarding lymphoma. They are waiting for subtype classification of pathology. Patient was started on Decadron. Lab work has been ordered for tumor lysis syndrome and patient was given 1 dose of Elitek. Patient is followed by Dr. Hurley as well. He has increased levothyroxine to 75 g. Repeat lab work reveals sodium 132, potassium 5.9, CO2 is 19, BUN 1266, creatinine 1.28. Repeat lactic acid is 3.4, phosphorus 5.6. Repeat uric acid normal at 5.3. Patient continues to shortness of breath with exertion. She complains of lightheadedness. She is waiting for blood transfusion. She denies having any chest pain or headache. Blood sugars are elevated running 197 at 212. Levemir will be added. 04/21: the patient is status post 2 units of packed RBCs and hemoglobin last evening was 7.1, this morning hemoglobin 6.7 and she is ordered for her third unit of packed RBCs. Patient has decreased urine output that is dark and IV fluids will continue at 75 mL per hour. Patient is not eating very much and Glucerna will be added for supplementation.she has been afebrile, heart rate 87, blood pressure 115/71, pulse ox 94% on room air. Family is hoping that the final pathology report will be available today. Awaiting further recommendations from oncology.blood sugars remain elevated despite starting Levemir last evening. Levemir will be increased to 18 units at bedtime. Continue NovoLog scale as well. 04/22: Patient is status post 3 units of PRBCs and hemoglobin is 7.2 this morning. Awaiting further information from [facility] for complete diagnosis. patient has been up in the [place] walking. Patient states that she feels stronger than she has prior to admission. Patient has 2+ pitting edema bilateral lower extremities. Urinary output has been 1 L over the night. Patient has been hemodynamically stable. Denies any dizziness lightheadedness or vision changes. 04/23: patient is up resting in the chair. Today is the first day of no steroids. Patient has been up in the [place] walking. Patient states that the swelling has decreased from yesterday and no difficulty breathing. patient scheduled for a port placement early next week. Still awaiting results from [facility]. hemoglobin 7.3, hematocrit 22.1, potassium 5.3, BUN 63, creatinine 1.16,uric acid 6.6, phosphorus 4.6, magnesium 2.7. he has been hemodynamically stable. Denies any lightheadedness or efficiency. 04/24: patient remains in intensive care unit but waiting for a [facility] bed without telemetry. Patient is scheduled today for port placement with Dr. Jaime and an ultrasound of the abdomen due to elevated bilirubin. Tract bilirubin testing will be added. Patient is currently on IV fluids due to nothing by mouth status which will be discontinued following procedure and Lasix 20 mg given. 04/25: Patient is now seen on the [facility] floor. She underwent Port-A-Cath insertion yesterday with Dr. Jaime. Ultrasound of the abdomen revealed correlate for hepatocellular disease. Splenomegaly. Small amount of ascites. Limited exam. Repeat lab work reveals a CBC 2.2, hemoglobin 6.3, platelet count 96. Blood sugars run between 124 and 223. Total bilirubin 5.3, AST 59, ALT 59, alkaline phosphatase 59, LDH 949. Albumin 2.4. Delta bilirubin 0.9, unconjugated 2.6, conjugated 0. Oncology is starting the patient on Etoposide for 4 days, Cytoxan on April 29 dose. Patient also started on Prednisone 120 mg daily and pepcid for 5 days. in anticipation of hyperglycemia, Levemir will be changed to 10 units twice daily and Humalog 2 units scheduled with meals will be added as well. Patient denies having chest pain or shortness of breath. She complains of weakness. Consult with GI will be added regarding hepatocellular disease and jaundice. Hepatitis panel added. Review of Systems Constitutional: Reports anorexia, Reports fatigue, denies lethargy, Reports malaise, Reports sweats, Reports weakness Eyes: denies blurred vision, denies decreased vision Ears, nose, mouth and throat: Denies dysphagia, Denies neck lump, Denies swelling in throat, Denies sore throat Cardiovascular: Reports decreased exercise tolerance improved, denies dyspnea on exertion, Reports leg edema improved, denies lightheadedness, denies rapid heart beat, Denies shortness of breath, Denies chest pain, Denies syncope Respiratory: Denies congestion, Denies cough, Denies cough with sputum, Denies home oxygen, Denies sleep apnea, Denies snoring, Denies wheezing Gastrointestinal: Reports bloating, Reports early satiety, Reports loss of appetite, Denies abdominal pain, Denies change in bowel habits, Denies coffee gr ound emesis, Denies heartburn, Denies hematemesis, Denies hematochezia, Denies melena, Denies nausea, Denies vomiting Genitourinary: Denies dysuria, Denies hematuria Menstruation: Reports postmenopausal Musculoskeletal: Reports muscle weakness, Denies frequent falls Musculoskeletal: bilateral: ankle swelling, foot swelling, absent: ankle pain, ankle stiffness, as per HPI, elbow pain, elbow stiffness, elbow swelling, foot pain, foot stiffness, hand pain, hand stiffness, hand swelling, hip pain, hip stiffness, hip swelling, knee pain, knee stiffness, knee swelling, shoulder pain, shoulder stiffness, shoulder swelling, wrist pain, wrist stiffness, wrist swelling Integumentary: Denies pruritus, Denies rash Neurological: Denies numbness, Denies weakness Psychiatric: Reports anxiety, Reports depression, Denies sadness/tearfulness, Denies sleep disturbances, Denies suicidal ideation Endocrine: report fatigue, Denies weight change Objective - Vital Signs Vital signs: Vital Signs Temp 97.6 F 04/25/19 05:44 Pulse 82 04/25/19 05:44 Resp 18 04/25/19 05:44 BP 110/65 04/25/19 05:44 Pulse Ox 96 04/25/19 05:44 Intake & Output 04/24/19 04/25/19 04/25/19 18:59 06:59 18:59 Intake Total 790 240 Output Total 2905 401 Balance -5 -161 Intake: IV 550 0.9 50 Levofloxacin 250Mg-D5w 50 Pmx 250 mg In Dextrose/ Water 1 50ml.bag @ 50 mls /hr IVPB Q24H [facility] Rx#: [id number] Oral 240 240 Output: Urine 2900 400 Stool 1 Estimated Blood Loss 5 Other: Voiding Method Toilet Toilet Toilet # Voids 1 - Exam - Constitutional General appearance: average body habitus, no distress, resting in wheelchair, Appears comfortable - EENT Eyes: EOMI, PERRLA, no ptosis, scleral icterus, normal appearance ENT: hearing grossly normal, NA/AT, normal oropharynx, no thrush Ears: bilateral: normal - Neck Neck: lymphadenopathy (Significant lymphadenopathy and the right posterior cervical submandibular right supraclavicular left axillary left inguinal .) Thyroid: bilateral: enlarged - Respiratory Respiratory: bilateral: diminished, negative: dullness, rales, rhonchi, wheezing, prolonged expiration - Cardiovascular Rhythm: regular Heart sounds: normal: S1, S2 Abnormal Heart Sounds: systolic murmur, no S3 Gallop, no S4 Gallop - Gastrointestinal General gastrointestinal: distended, hepatomegaly, organomegaly, soft, sple nomegaly, no tenderness, no umbilical hernia, no ventral hernia - Integumentary Integumentary: pale - Neurologic Neurologic: CNII-XII intact - Musculoskeletal Musculoskeletal: gait normal, generalized weakness - Psychiatric Psychiatric: A&O x's 3, appropriate affect, intact judgment & insight - Labs CBC & Chem 7: 04/25/19 07:21 04/25/19 07:21 Labs: Abnormal Lab Results - Last 24 Hours (Table) 04/19/19 04/20/19 04/23/19 Range/Units 13:52 05:06 18:40 WBC (3.8-10.6) k/uL RBC (3.80-5.40) m/uL Hgb (11.4-16.0) gm/dL Hct (34.0-46.0) % RDW (11.5-15.5) % Plt Count (150-450) k/uL Lymphocytes # (1.0-4.8) k/uL Haptoglobin <8.0 L (31.2-198.0) mg/dL Chloride (98-107) mmol/L BUN (7-17) mg/dL Glucose (74-99) mg/dL POC Glucose (mg/dL) (75-99) mg/dL Calcium (8.4-10.2) mg/dL Total Bilirubin (0.2-1.3) mg/dL Unconjugated Bilirubin (0.0-1.1) mg/dL Delta Bilirubin (0.0-0.2) mg/dL AST (14-36) U/L ALT (4-34) U/L Lactate Dehydrogenase (313-618) U/L Total Protein (6.3-8.2) g/dL Albumin (3.5-5.0) g/dL Parvovirus B19 IgG Ab 3.45 H (<=0.90) INDEX Parvovirus B19 IgM Ab 3.46 H (<=0.90) INDEX Reference Lab Result See [facility] REF Reports A 04/24/19 04/24/19 04/24/19 Range/Units 04:30 12:55 13:39 WBC (3.8-10.6) k/uL RBC (3.80-5.40) m/uL Hgb (11.4-16.0) gm/dL Hct (34.0-46.0) % RDW (11.5-15.5) % Plt Count (150-450) k/uL Lymphocytes # (1.0-4.8) k/uL Haptoglobin (31.2-198.0) mg/dL Chloride (98-107) mmol/L BUN (7-17) mg/dL Glucose (74-99) mg/dL POC Glucose (mg/dL) 121 H 127 H (75-99) mg/dL Calcium (8.4-10.2) mg/dL Total Bilirubin 3.5 H (0.2-1.3) mg/dL Unconjugated Bilirubin 2.6 H (0.0-1.1) mg/dL Delta Bilirubin 0.9 H (0.0-0.2) mg/dL AST (14-36) U/L ALT (4-34) U/L Lactate Dehydrogenase (313-618) U/L Total Protein (6.3-8.2) g/dL Albumin (3.5-5.0) g/dL Parvovirus B19 IgG Ab (<=0.90) INDEX Parvovirus B19 IgM Ab (<=0.90) INDEX Reference Lab Result 04/24/19 04/24/19 04/25/19 Range/Units 16:42 20:35 06:56 WBC (3.8-10.6) k/uL RBC (3.80-5.40) m/uL Hgb (11.4-16.0) gm/dL Hct (34.0-46.0) % RDW (11.5-15.5) % Plt Count (150-450) k/uL Lymphocytes # (1.0-4.8) k/uL Haptoglobin (31.2-198.0) mg/dL Chloride (98-107) mmol/L BUN (7-17) mg/dL Glucose (74-99) mg/dL POC Glucose (mg/dL) 133 H 223 H 139 H (75-99) mg/dL Calcium (8.4-10.2) mg/dL Total Bilirubin (0.2-1.3) mg/dL Unconjugated Bilirubin (0.0-1.1) mg/dL Delta Bilirubin (0.0-0.2) mg/dL AST (14-36) U/L ALT (4-34) U/L Lactate Dehydrogenase (313-618) U/L Total Protein (6.3-8.2) g/dL Albumin (3.5-5.0) g/dL Parvovirus B19 IgG Ab (<=0.90) INDEX Parvovirus B19 IgM Ab (<=0.90) INDEX Reference Lab Result 04/25/19 04/25/19 Range/Units 07:21 07:21 WBC 2.2 L (3.8-10.6) k/uL RBC 1.94 L (3.80-5.40) m/uL Hgb 6.3 L* D (11.4-16.0) gm/dL Hct 19.0 L* (34.0-46.0) % RDW 18.9 H (11.5-15.5) % Plt Count 96 L (150-450) k/uL Lymphocytes # 0.3 L (1.0-4.8) k/uL Haptoglobin (31.2-198.0) mg/dL Chloride 108 H (98-107) mmol/L BUN 45 H (7-17) mg/dL Glucose 124 H (74-99) mg/dL POC Glucose (mg/dL) (75-99) mg/dL Calcium 8.2 L (8.4-10.2) mg/dL Total Bilirubin 5.3 H (0.2-1.3) mg/dL Unconjugated Bilirubin (0.0-1.1) mg/dL Delta Bilirubin (0.0-0.2) mg/dL AST 59 H (14-36) U/L ALT 59 H (4-34) U/L Lactate Dehydrogenase 949 H (313-618) U/L Total Protein 5.6 L (6.3-8.2) g/dL Albumin 2.5 L (3.5-5.0) g/dL Parvovirus B19 IgG Ab (<=0.90) INDEX Parvovirus B19 IgM Ab (<=0.90) INDEX Reference Lab Result Microbiology - Last 24 Hours (Table) 04/19/19 12:10 Blood Culture - Preliminary Blood No Growth after 120 hours Assessment and Plan Plan: 1. Severe symptomatic anemia with a new diagnosis of T-cell lymphoma CD30 (final pathologic report is not available yet he was sent to the [facility] for second opinion) with possible AIHA due to her malignancy. Oncology consult appreciated. Patient on Levaquin per bag hanger. Patient is scheduled to start chemotherapy today. 2. Acute symptomatic anemia. Status post transfusion of 3 units of packed RBCs. 3. T-cell lymphoma CD30 positive. Likely will require chemotherapy await hematology oncology input. Awaiting pathology report finalization. 4. Hypertension and hypertensive cardiovascular disease currently hypotensive discontinue Lotrel for now. 5. Hypotension with hypoperfusion creating lactic acidosis. Continue IV fluid resuscitation, admitted to the intensive care unit, consult Dr. Hurley. 6. Tumor lysis syndrome. Oncology is following. Patient is status post Elitek. 7. Diabetes mellitus type 2, uncontrolled with hyperglycemia secondary to steroids. Continue NovoLog scale and increase Levemir to 18 units at bedtime. 8. Hyperlipidemia. Discontinue Crestor for now. 9. Hypothyroidism. Continue Synthroid increased to 75 g orally once every day. 10. Diverticulosis. Colonoscopy is up-to-date. 11. Recurrent Depression. Currently on Effexor XR 75 mg orally once every day. 12. DVT prophylaxis. Bilateral knee-high THA hose. 13. GI prophylaxis. Protonix 40 mg IV push every 24 hours. 14. Bicytopenia with anemia and thrombocytopenia secondary to underlying cancer. 15. Edema secondary to IV fluids. IV fluids to be discontinued following procedures and Lasix 20 mg IV push. 16. Hepatocellular disease. Ultrasound of the abdomen as above. consult with GI. Hepatitis panel ordered. Code status: full code. Discharge plan: To be determined. Impression and plan of care have been directed as dictated by the signing physician. Verito Veloz nurse practitioner acting as scribe for signing physician.
[2019-04-25 17:11] LABS: Glucose,Whole Blood 181 mg/dL (75-99)
[2019-04-25] MEDS: LEVOFLOXACIN 250MG-D5W PMX 250 MG in DEXTROSE/WATER 1 50ML.BAG IVPB SCH (18:12)
[2019-04-25] MEDS: ONDANSETRON 16 MG in SODIUM CHLORIDE 0.9% 50 ML IVPB SCH (19:29)
[2019-04-25] MEDS: FAMOTIDINE 20 MG/2 ML VIAL IVP SCH (19:29)
[2019-04-25] MEDS: predniSONE 50 MG TAB PO SCH (19:30)
[2019-04-25] MEDS: predniSONE 20 MG TAB PO SCH (19:31)
[2019-04-25] MEDS: ETOPOSIDE IV SCH (19:45)
[2019-04-25] MEDS: [UNRECOGNIZED DRUG - OTHER] IV SCH (19:45)
[2019-04-25] MEDS: VINCRISTINE SULFATE IV SCH (19:45)
[2019-04-25] MEDS: DOXORUBICIN HCL IV SCH (19:45)
[2019-04-25 19:58] LABS: Glucose,Whole Blood 225 mg/dL (75-99)
--- NOTE | 2019-04-25 20:01 | CONS ---
CONSULTATION DATE OF DICTATION: 04/25/2019 REASON FOR CONSULTATION: Elevated LFTs and hyperbilirubinemia. HISTORY OF PRESENT ILLNESS: The patient is a 68-year-old pleasant white female who was diagnosed with T-cell lymphoma a week ago. The patient states that she noticed lymph node enlargement in the supraclavicular area as well as axillary lymph nodes and went to see Dr. Gonzalez on an outpatient basis. She underwent supraclavicular lymph node biopsy on 04/11 and biopsy revealed lymphoma. She is being started on chemotherapy today, has not received it yet. In the meantime, we are consulted because of elevated LFTs and bilirubin. At the time of admission to the hospital, patient was noted to have mild elevation of serum transaminases in the range of 50s and 70s and bilirubin that was in the range of 2.8-3. Gradually, the bilirubin is increasing and today it is 5.3. The patient denies any history of chronic liver disease. She did mention that 2 years ago she saw me in the office for mild elevation of serum transaminases and was diagnosed with fatty liver disease and recommended weight reduction and diet modification. No prior history of jaundice or hepatitis in the past. LAB: Her bilirubin is 5.3, ALT and AST are 78 and 50 respectively. Unconjugated bilirubin is elevated and a hemoglobin is down to 6.3, LDH is 975. PAST MEDICAL HISTORY: Significant for hypertension, hyperlipidemia, diabetes mellitus, fatty liver disease, newly diagnosed lymphoma, diabetes mellitus, hypothyroidism, diverticulosis. PAST SURGICAL HISTORY: Breast surgery for breast cancer in 2018, hysterectomy, recent right supraclavicular lymph node biopsy. FAMILY HISTORY: Father had coronary artery disease. Mother of pancreatic cancer. MEDICATIONS: At home: Amlodipine, Levoxyl, Crestor, Glucophage, Motrin, Effexor. ALLERGIES: PENICILLIN. SOCIAL HISTORY: No smoking. No alcohol use. FAMILY HISTORY: As mentioned above. REVIEW OF SYSTEMS: CARDIOPULMONARY: She does complain of shortness of breath. No chest pain. NEUROLOGY unremarkable. PSYCHIATRIC unremarkable. ENT/vision unremarkable. CONSTITUTIONAL: Weight loss of 10-15 pounds. No fever, but she has night sweats. ENT/vision unremarkable. HEMATOLOGY: Anemia. ENDOCRINE unremarkable. PHYSICAL EXAMINATION: She appears comfortable. No apparent distress. VITAL SIGNS: Stable. Blood pressure is 117/57, pulse 81, temperature 98.5. HEENT examination unremarkable. Conjunctivae pink. Sclerae anicteric. Oral cavity no lesions. NECK: No JVD or lymph node enlargement. Chest was clear to auscultation. HEART: Regular rate and rhythm. ABDOMEN: Soft. Liver was palpable in the epigastric area but the rest of the liver was benign. Not palpable. EXTREMITIES no pedal edema. NEUROLOGIC: Alert and oriented x3. No focal deficits. LABORATORY FINDINGS: Labs done today WBC 2.2, hemoglobin 6.3, platelets are 96, T-bilirubin is 5.3; yesterday, T-bilirubin is 3.5, conjugated bilirubin is 0 and unconjugated 2.6, AST and ALT are 78 and 16 respectively, and alkaline phosphatase is 859, LDH is 949. IMPRESSION: 1. Newly diagnosed Angio immunoblastic T-cell lymphoma. The patient is going to be started on chemotherapy today while in the hospital. 2. Mild elevation of LFTs and bilirubin up to 5.3 g/dL. Some of the bilirubin is elevated, probably on the basis of hemolysis as patient is noted to have elevated LDH, severe anemia and mostly unconjugated hyperbilirubinemia, but some of the serum transaminases could be explained on the basis of underlying fatty liver disease, but a possibility of lymphoma infiltrating with liver involvement is also a consideration at this time. However, we will rule out underlying viral hepatitis. 3. Severe symptomatic anemia. Hematology following the patient closely. RECOMMENDATIONS: 1. Ultrasound of the liver were reviewed and revealed that did showed evidence of hepatocellular disease, but no evidence of biliary ductal dilation. 2. Await results of hepatitis viral serologies for A, B and C. 3. Monitor LFTs closely. 4. Avoid hepatotoxic medications. 5. Stop statin therapy at this time. 6. We will follow with you closely during her hospital stay. Thank you for this consultation. MMODL / IJN: [id number] /
[2019-04-25 20:36] LABS: Hepatitis A Antibody IgM Non-Reactive (Non-Reactive); Hepatitis B Core IgM Non-Reactive (Non-Reactive); Hepatitis B Surface Antigen Non-Reactive (Non-Reactive); Hepatitis C IgG Antibody Non-Reactive (Non-Reactive)
[2019-04-26] MEDS: LEVOTHYROXINE 75 MCG TAB PO SCH (05:16)
[2019-04-26] MEDS: SODIUM CHLORIDE 0.9% 1,000 ML IV SCH ×2 (05:16→17:25)
[2019-04-26 06:21] LABS: Mycoplasma IgM Antibody 0.42 INDEX (<=0.90)
[2019-04-26 07:16] LABS: Glucose,Whole Blood 227 mg/dL (75-99)
[2019-04-26] MEDS: INSULIN ASPART (NovoLOG) 100 UNIT/ML VIAL SQ SCH ×7 (08:07→21:26)
[2019-04-26] MEDS: FOLIC ACID 1 MG TAB PO SCH (08:08)
[2019-04-26] MEDS: PANTOPRAZOLE 40 MG/10 ML VIAL IVP SCH (08:08)
[2019-04-26] MEDS: INSULIN DETEMIR (LEVEMIR) 100 UNIT/ML SYR SQ SCH ×2 (08:08→21:27)
[2019-04-26] MEDS: VENLAFAXINE HCL 75 MG TAB PO SCH (08:09)
[2019-04-26 10:07] LABS: Anisocytosis Slight; Basophils % (A) 1 %; Eosinophils % (A) 0 %; Hypochromasia Moderate; Lymphocytes # (A) 0.2 k/uL (1.0-4.8); Lymphocytes % (A) 9 %; MCH 31.4 pg (25.0-35.0); MCHC 31.2 g/dL (31.0-37.0); MCV 100.6 fL (80.0-100.0); Macrocytosis Moderate; Mean Platelet Volume 8.5; Monocytes # (A) 0.1 k/uL (0-1.0); Monocytes % (A) 5 %; Neutrophils # (A) 1.5 k/uL (1.3-7.7); Neutrophils % (A) 84 %; RBC 1.81 m/uL (3.80-5.40); RDW 19.1 % (11.5-15.5); WBC 1.8 k/uL (3.8-10.6)
[2019-04-26 10:09] LABS: HCT 18.2 % (34.0-46.0); HGB 5.7 gm/dL (11.4-16.0)
[2019-04-26 10:10] LABS: Platelet Count 76 k/uL (150-450)
[2019-04-26 10:16] LABS: Albumin 2.5 g/dL (3.5-5.0); Potassium 5.3 mmol/L (3.5-5.1); Total Bilirubin 2.7 mg/dL (0.2-1.3); Total Protein 5.4 g/dL (6.3-8.2)
[2019-04-26 11:15] LABS: Glucose,Whole Blood 259 mg/dL (75-99)
--- NOTE | 2019-04-26 15:15 | P.PN ---
Subjective Progress Note Date: 04/26/19 his is a 68-year-old female one of my patient with a previous medical history significant for hypertension and hypertensive cardiovascular disease, hyperlipidemia, new diagnosis of diabetes mellitus type 2, history of breast cancer status post right lumpectomy with radiation therapy, diverticulosis, hypothyroidism, patient developed to have a a small lymph node in the back of her neck about 3 month ago and she was evaluated in my office at that time the lymph nodes were freely movable and small in size and eventually the lymph node got better for a bit and subsequently developed to have a significant lymphadenopathy in the right cervical and submandibular bilaterally along with right supraclavicular lymph node and left axillary and left inguinal lymph node, she went to Dr. 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 on Wednesday for a treatment plan, the biopsy was sent to the [facility] for further recommendation and evaluation as well he shouldn't has been declining over the last week or so with poor appetite and increased edema in upper and lower extremities with increased abdominal distention and fatigue and generalized Megace and weakness and dark urine according to the patient I spoke with her daughter about 2 days ago and asked her to bring her to the ER if she is not improving patient showed up to the ER today and she was found to have hemoglobin of 5 significantly elevated LDH and bilirubin along with liver function test haptoglobin was still pending there were some concern of hemolytic anemia in view of her lymphoma, hematology oncology consult added and blood tests were ordered labs were drawn and the patient will be receiving 2 units of packed red blood cells after the antibodies are cleared through the blood bank ([facility]). Patient appears to be somewhat hypotensive a bit short of breath, she did receive 2 L of IV fluid at this point in time her blood pressure continues to be low, Lactic acid was high she would be admitted to the intensive care unit with consultation to Dr. Hurley for further evaluation recommendation. 04/20: Patient has been seen by oncology regarding lymphoma. They are waiting for subtype classification of pathology. Patient was started on Decadron. Lab work has been ordered for tumor lysis syndrome and patient was given 1 dose of Elitek. Patient is followed by Dr. Hurley as well. He has increased levothyroxine to 75 g. Repeat lab work reveals sodium 132, potassium 5.9, CO2 is 19, BUN 1266, creatinine 1.28. Repeat lactic acid is 3.4, phosphorus 5.6. Repeat uric acid normal at 5.3. Patient continues to shortness of breath with exertion. She complains of lightheadedness. She is waiting for blood transfusion. She denies having any chest pain or headache. Blood sugars are elevated running 197 at 212. Levemir will be added. 04/21: the patient is status post 2 units of packed RBCs and hemoglobin last evening was 7.1, this morning hemoglobin 6.7 and she is ordered for her third unit of packed RBCs. Patient has decreased urine output that is dark and IV fluids will continue at 75 mL per hour. Patient is not eating very much and Glucerna will be added for supplementation.she has been afebrile, heart rate 87, blood pressure 115/71, pulse ox 94% on room air. Family is hoping that the final pathology report will be available today. Awaiting further recommendations from oncology.blood sugars remain elevated despite starting L evemir last evening. Levemir will be increased to 18 units at bedtime. Continue NovoLog scale as well. 04/22: Patient is status post 3 units of PRBCs and hemoglobin is 7.2 this morning. Awaiting further information from [facility] for complete diagnosis. patient has been up in the [place] walking. Patient states that she feels stronger than she has prior to admission. Patient has 2+ pitting edema bilateral lower extremities. Urinary output has been 1 L over the night. Patient has been hemodynamically stable. Denies any dizziness lightheadedness or vision changes. 04/23: patient is up resting in the chair. Today is the first day of no steroids. Patient has been up in the [place] walking. Patient states that the swelling has decreased from yesterday and no difficulty breathing. patient s cheduled for a port placement early next week. Still awaiting results from [facility]. hemoglobin 7.3, hematocrit 22.1, potassium 5.3, BUN 63, creatinine 1.16,uric acid 6.6, phosphorus 4.6, magnesium 2.7. he has been hemodynamically stable. Denies any lightheadedness or efficiency. 04/24: patient remains in intensive care unit but waiting for a [facility] bed without telemetry. Patient is scheduled today for port placement with Dr. Jaime and an ultrasound of the abdomen due to elevated bilirubin. Tract bilirubin testing will be added. Patient is currently on IV fluids due to nothing by mouth status which will be discontinued following procedure and Lasix 20 mg given. 04/25: Patient is now seen on the [facility] floor. She underwent Port-A-Cath insertion yesterday with Dr. Jaime. Ultrasound of the abdomen revealed correlate for hepatocellular disease. Splenomegaly. Small amount of ascites. Limited exam. Repeat lab work reveals a CBC 2.2, hemoglobin 6.3, platelet count 96. Blood sugars run between 124 and 223. Total bilirubin 5.3, AST 59, ALT 59, alkaline phosphatase 59, LDH 949. Albumin 2.4. Delta bilirubin 0.9, unconjugated 2.6, conjugated 0. Oncology is starting the patient on Etoposide for 4 days, Cytoxan on April 29 dose. Patient also started on Prednisone 120 mg daily and pepcid for 5 days. in anticipation of hyperglycemia, Levemir will be changed to 10 units twice daily and Humalog 2 units scheduled with meals will be added as well. Patient denies having chest pain or shortness of breath. She complains of weakness. Consult with GI will be added regarding hepatocellular disease and jaundice. Hepatitis panel added. 04/26 patient evaluated bedside. Vitals are stable jaundice has improved. Evaluation of lab patient's hemoglobin dropped down to 5.7 today. Platelets 76. 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 Patient also started on Prednisone 120 mg daily and pepcid for 5 days. Review of Systems Constitutional: Reports anorexia, Reports fatigue, denies lethargy, Reports malaise, Reports sweats, Reports weakness Eyes: denies blurred vision, denies decreased vision Ears, nose, mouth and throat: Denies dysphagia, Denies neck lump, Denies swelling in throat, Denies sore throat Cardiovascular: Reports decreased exercise tolerance improved, denies dyspnea on exertion, Reports leg edema improved, denies lightheadedness, denies rapid heart beat, Denies shortness of breath, Denies chest pain, Denies syncope Respiratory: Denies congestion, Denies cough, Denies cough with sputum, Denies home oxygen, Denies sleep apnea, Denies snoring, Denies wheezing Gastrointestinal: Reports bloating, Reports early satiety, Reports loss of appetite, Denies abdominal pain, Denies change in bowel habits, Denies coffee ground emesis, Denies heartburn, Denies hematemesis, Denies hematochezia, Denies melena, Denies nausea, Denies vomiting Genitourinary: Denies dysuria, Denies hematuria Menstruation: Reports postmenopausal Musculoskeletal: Reports muscle weakness, Denies frequent falls Musculoskeletal: bilateral: ankle swelling, foot swelling, absent: ankle pain, ankle stiffness, as per HPI, elbow pain, elbow stiffness, elbow swelling, foot pain, foot stiffness, hand pain, hand stiffness, hand swelling, hip pain, hip stiffness, hip swelling, knee pain, knee stiffness, knee swelling, shoulder pain, shoulder stiffness, shoulder swelling, wrist pain, wrist stiffness, wrist swelling Integumentary: Denies pruritus, Denies rash Neurological: Denies numbness, Denies weakness Psychiatric: Reports anxiety, Reports depression, Denies sadness/tearfulness, Denies sleep disturbances, Denies suicidal ideation Endocrine: report fatigue, Denies weight change Objective - Vital Signs Vital signs: Vital Signs Temp 98.5 F 04/26/19 14:17 Pulse 84 04/26/19 14:17 Resp 17 04/26/19 14:17 BP 139/66 04/26/19 14:17 Pulse Ox 97 04/26/19 11:59 Intake & Output 04/25/19 04/26/19 04/26/19 18:59 06:59 18:59 Intake Total 240 1310 310 Output Total 1 Balance 240 1309 310 Intake: IV 200 0.9 200 Intake, IV Titration 50 Amount Ondansetron 16 mg In 50 Sodium Chloride 0.9% 50 ml @ 232 mls/hr IVPB Q24H [facility] Rx#:[id number] Oral 240 840 Tube Feeding 220 Blood Product 310 Rc Irr As1 Unit 310 [id number] Output: Stool 1 Other: Voiding Method Toilet Toilet Toilet # Voids 2 3 - Exam - Constitutional General appearance: cooperative, no acute distress, appropriate for age - EENT Eyes:, PERRLA, normal appearance, jaundice improved ENT: hearing grossly normal - Neck Neck: no lymphadenopathy, normal ROM, no other, no rigidity, no stridor, no thyromegaly - Respiratory Respiratory: bilateral: CTA, negative: diminished, dullness, rales, rhonchi - Cardiovascular Rhythm: regular Heart sounds: normal: S1, S2 Abnormal Heart Sounds: no systolic murmur, no diastolic murmur, no rub, no S3 Gallop, no S4 Gallop, no click, no other - Gastrointestinal General gastrointestinal: normal bowel sounds, softnontender - Integumentary Integumentary: no rash - Neurologic Neurologic: CNII-XII intact - Musculoskeletal Musculoskeletal: gait not assessed, strength equal bilaterally - Psychiatric Psychiatric: A&O x's 3, appropriate affect - Labs CBC & Chem 7: 04/26/19 09:44 04/26/19 09:44 Labs: Abnormal Lab Results - Last 24 Hours (Table) 04/25/19 04/25/19 04/25/19 Range/Units 10:31 17:09 19:57 WBC (3.8-10.6) k/uL RBC (3.80-5.40) m/uL Hgb (11.4-16.0) gm/dL Hct (34.0-46.0) % MCV (80.0-100.0) fL RDW (11.5-15.5) % Plt Count (150-450) k/uL Lymphocytes # (1.0-4.8) k/uL Potassium (3.5-5.1) mmol/L Chloride (98-107) mmol/L BUN (7-17) mg/dL Glucose (74-99) mg/dL POC Glucose (mg/dL) 181 H 225 H (75-99) mg/dL Calcium (8.4-10.2) mg/dL Total Bilirubin (0.2-1.3) mg/dL AST (14-36) U/L ALT (4-34) U/L Total Protein (6.3-8.2) g/dL Albumin (3.5-5.0) g/dL Crossmatch See Detail 04/26/19 04/26/19 04/26/19 Range/Units 07:15 09:44 09:44 WBC 1.8 L (3.8-10.6) k/uL RBC 1.81 L (3.80-5.40) m/uL Hgb 5.7 L* (11.4-16.0) gm/dL Hct 18.2 L* (34.0-46.0) % MCV 100.6 H (80.0-100.0) fL RDW 19.1 H (11.5-15.5) % Plt Count 76 L (150-450) k/uL Lymphocytes # 0.2 L (1.0-4.8) k/uL Potassium 5.3 H (3.5-5.1) mmol/L Chloride 110 H (98-107) mmol/L BUN 37 H (7-17) mg/dL Glucose 271 H (74-99) mg/dL POC Glucose (mg/dL) 227 H (75-99) mg/dL Calcium 8.0 L (8.4-10.2) mg/dL Total Bilirubin 2.7 H (0.2-1.3) mg/dL AST 51 H (14-36) U/L ALT 48 H (4-34) U/L Total Protein 5.4 L (6.3-8.2) g/dL Albumin 2.5 L (3.5-5.0) g/dL Crossmatch 04/26/19 Range/Units 11:14 WBC (3.8-10.6) k/uL RBC (3.80-5.40) m/uL Hgb (11.4-16.0) gm/dL Hct (34.0-46.0) % MCV (80.0-100.0) fL RDW (11.5-15.5) % Plt Count (150-450) k/uL Lymphocytes # (1.0-4.8) k/uL Potassium (3.5-5.1) mmol/L Chloride (98-107) mmol/L BUN (7-17) mg/dL Glucose (74-99) mg/dL POC Glucose (mg/dL) 259 H (75-99) mg/dL Calcium (8.4-10.2) mg/dL Total Bilirubin (0.2-1.3) mg/dL AST (14-36) U/L ALT (4-34) U/L Total Protein (6.3-8.2) g/dL Albumin (3.5-5.0) g/dL Crossmatch Microbiology - Last 24 Hours (Table) 04/19/19 12:10 Blood Culture - Final Blood No Growth after 144 hours Assessment and Plan Plan: 1. 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 Oncology consult appreciated. Patient on Levaquin per parent trainer. on chemotherapy 2. Acute symptomatic anemia. Status post transfusion of 3 units of packed RBCs.Hemoglobin old this morning status post 1 unit PRBC repeat CBC in the evening 3. T-cell lymphoma CD30 positive. chemotherapy initiated with etoposide, doxorubicin, vincristine date 2and cyclophosphamide to be initiated on April 29await hematology oncology input. pathology suggestive angioimmunoblastic T-denzel l lymphoma 4. Hypertension and hypertensive cardiovascular disease currently hypotensive discontinue Lotrel for now. 5. Hypotension with hypoperfusion creating lactic acidosis. Continue IV fluid resuscitation, admitted to the intensive care unit, consult Dr. Hurley. 6. Tumor lysis syndrome. Oncology is following. Patient is status post Elitek. 7. Diabetes mellitus type 2, uncontrolled with hyperglycemia secondary to steroids. Continue NovoLog scale and increase Levemir to 10 units BID 8. Hyperlipidemia. Discontinue Crestor for now. 9. Hypothyroidism. Continue Synthroid increased to 75 g orally once every day. 10. Diverticulosis. Colonoscopy is up-to-date. 11. Recurrent Depression. Currently on Effexor XR 75 mg orally once every day. 12. DVT prophylaxis. Bilateral knee-high THA hose. 13. GI prophylaxis. Protonix 40 mg IV push every 24 hours. 14. Bicytopenia with anemia and thrombocytopenia secondary to underlying cancer. 15. Edema secondary to IV fluids. IV fluids to be discontinued following procedures and Lasix 20 mg IV push. 16. Hepatocellular disease. Ultrasound of the abdomen as above. consult with GI. Hepatitis panel ordered. Code status: full code. Discharge plan: To be determined.
--- NOTE | 2019-04-26 16:37 | P.PN ---
<Leila Bustos A - Last Filed: 04/26/19 16:35> Subjective Progress Note Date: 04/26/19 CHIEF COMPLAINT: Lymphoma HISTORY OF PRESENT ILLNESS: 68-year-old female who is status post right chest Port-A-Cath placement. Postoperative day #2. Patient examined at the bedside. She reports minimal tenderness to surgical site. Hemoglobin 5.7. Patient received 1 unit of packed RBCs today. Patient began chemotherapy last night and she states she is tolerating it well. She is to receive chemotherapy again this evening. PHYSICAL EXAM: VITAL SIGNS: Reviewed. GENERAL: Well-developed in no acute distress. HEENT: No sclera icterus. Extraocular movements grossly intact. Moist buccal mucosa. Head is atraumatic, normocephalic. ABDOMEN: Soft. Nondistended. Nontender. CHEST: Right chest Port-A-Cath currently accessed for chemotherapy. Transparent dressing noted. No surrounding erythema. NEUROLOGIC: Alert and oriented. Cranial nerves II through XII grossly intact. ASSESSMENT: 1. Lymphoma, status post right chest Port-A-Cath placement PLAN: Continue to monitor hemoglobin. Transfusions per oncology Patient doing well from a surgical standpoint after Port-A-Cath placement. We will follow on as needed basis. Please call with questions or concerns Nurse practitioner note has been reviewed by physician. Signing provider agrees with the documented findings, assessment, and plan of care. Objective - Vital Signs Vital signs: Vital Signs Temp 98.4 F 04/26/19 16:00 Pulse 78 04/26/19 16:00 Resp 18 04/26/19 16:00 BP 125/69 04/26/19 16:00 Pulse Ox 98 04/26/19 16:00 Intake & Output 04/25/19 04/26/19 04/26/19 18:59 06:59 18:59 Intake Total 240 1310 360 Output Total 1 Balance 240 1309 360 Intake: IV 200 50 0.9 200 Levofloxacin 250Mg-D5w 50 Pmx 250 mg In Dextrose/ Water 1 50ml.bag @ 50 mls /hr IVPB Q24H [facility] Rx#: [id number] Intake, IV Titration 50 Amount Ondansetron 16 mg In 50 Sodium Chloride 0.9% 50 ml @ 232 mls/hr IVPB Q24H [facility] Rx#:[id number] Oral 240 840 Tube Feeding 220 Blood Product 310 Rc Irr As1 Unit 310 [id number] Output: Stool 1 Other: Voiding Method Toilet Toilet Toilet # Voids 2 3 - Labs CBC & Chem 7: 04/26/19 09:44 04/26/19 09:44 Labs: Abnormal Lab Results - Last 24 Hours (Table) 04/25/19 04/25/19 04/25/19 Range/Units 10:31 17:09 19:57 WBC (3.8-10.6) k/uL RBC (3.80-5.40) m/uL Hgb (11.4-16.0) gm/dL Hct (34.0-46.0) % MCV (80.0-100.0) fL RDW (11.5-15.5) % Plt Count (150-450) k/uL Lymphocytes # (1.0-4.8) k/uL Potassium (3.5-5.1) mmol/L Chloride (98-107) mmol/L BUN (7-17) mg/dL Glucose (74-99) mg/dL POC Glucose (mg/dL) 181 H 225 H (75-99) mg/dL Calcium (8.4-10.2) mg/dL Total Bilirubin (0.2-1.3) mg/dL AST (14-36) U/L ALT (4-34) U/L Total Protein (6.3-8.2) g/dL Albumin (3.5-5.0) g/dL Crossmatch See Detail 04/26/19 04/26/19 04/26/19 Range/Units 07:15 09:44 09:44 WBC 1.8 L (3.8-10.6) k/uL RBC 1.81 L (3.80-5.40) m/uL Hgb 5.7 L* (11.4-16.0) gm/dL Hct 18.2 L* (34.0-46.0) % MCV 100.6 H (80.0-100.0) fL RDW 19.1 H (11.5-15.5) % Plt Count 76 L (150-450) k/uL Lymphocytes # 0.2 L (1.0-4.8) k/uL Potassium 5.3 H (3.5-5.1) mmol/L Chloride 110 H (98-107) mmol/L BUN 37 H (7-17) mg/dL Glucose 271 H (74-99) mg/dL POC Glucose (mg/dL) 227 H (75-99) mg/dL Calcium 8.0 L (8.4-10.2) mg/dL Total Bilirubin 2.7 H (0.2-1.3) mg/dL AST 51 H (14-36) U/L ALT 48 H (4-34) U/L Total Protein 5.4 L (6.3-8.2) g/dL Albumin 2.5 L (3.5-5.0) g/dL Crossmatch 04/26/19 Range/Units 11:14 WBC (3.8-10.6) k/uL RBC (3.80-5.40) m/uL Hgb (11.4-16.0) gm/dL Hct (34.0-46.0) % MCV (80.0-100.0) fL RDW (11.5-15.5) % Plt Count (150-450) k/uL Lymphocytes # (1.0-4.8) k/uL Potassium (3.5-5.1) mmol/L Chloride (98-107) mmol/L BUN (7-17) mg/dL Glucose (74-99) mg/dL POC Glucose (mg/dL) 259 H (75-99) mg/dL Calcium (8.4-10.2) mg/dL Total Bilirubin (0.2-1.3) mg/dL AST (14-36) U/L ALT (4-34) U/L Total Protein (6.3-8.2) g/dL Albumin (3.5-5.0) g/dL Crossmatch Microbiology - Last 24 Hours (Table) 04/19/19 12:10 Blood Culture - Final Blood No Growth after 144 hours <Hu Jaime - Last Filed: 04/26/19 19:07> Subjective As above. Patient doing well. We'll perform social visits at this time unless problems develop Objective - Vital Signs Vital signs: Vital Signs Temp 98.4 F 04/26/19 16:00 Pulse 78 04/26/19 16:00 Resp 18 04/26/19 16:00 BP 125/69 04/26/19 16:00 Pulse Ox 98 04/26/19 16:00 Intake & Output 04/26/19 04/26/19 04/27/19 06:59 18:59 06:59 Intake Total 1310 360 Output Total 1 Balance 1309 360 Intake: IV 200 50 0.9 200 Levofloxacin 250Mg-D5w 50 Pmx 250 mg In Dextrose/ Water 1 50ml.bag @ 50 mls /hr IVPB Q24H [facility] Rx#: [id number] Intake, IV Titration 50 Amount Ondansetron 16 mg In 50 Sodium Chloride 0.9% 50 ml @ 232 mls/hr IVPB Q24H [facility] Rx#:[id number] Oral 840 Tube Feeding 220 Blood Product 310 Rc Irr As1 Unit 310 [id number] Output: Stool 1 Other: Voiding Method Toilet Toilet # Voids 3 - Labs CBC & Chem 7: 04/26/19 18:26 04/26/19 09:44 Labs: Abnormal Lab Results - Last 24 Hours (Table) 04/25/19 04/25/19 04/26/19 Range/Units 10:31 19:57 07:15 WBC (3.8-10.6) k/uL RBC (3.80-5.40) m/uL Hgb (11.4-16.0) gm/dL Hct (34.0-46.0) % MCV (80.0-100.0) fL RDW (11.5-15.5) % Plt Count (150-450) k/uL Lymphocytes # (1.0-4.8) k/uL Potassium (3.5-5.1) mmol/L Chloride (98-107) mmol/L BUN (7-17) mg/dL Glucose (74-99) mg/dL POC Glucose (mg/dL) 225 H 227 H (75-99) mg/dL Calcium (8.4-10.2) mg/dL Total Bilirubin (0.2-1.3) mg/dL AST (14-36) U/L ALT (4-34) U/L Total Protein (6.3-8.2) g/dL Albumin (3.5-5.0) g/dL Crossmatch See Detail 12/18/19 12/18/19 12/18/19 Range/Units 09:44 09:44 11:14 WBC 1.8 L (3.8-10.6) k/uL RBC 1.81 L (3.80-5.40) m/uL Hgb 5.7 L* (11.4-16.0) gm/dL Hct 18.2 L* (34.0-46.0) % MCV 100.6 H (80.0-100.0) fL RDW 19.1 H (11.5-15.5) % Plt Count 76 L (150-450) k/uL Lymphocytes # 0.2 L (1.0-4.8) k/uL Potassium 5.3 H (3.5-5.1) mmol/L Chloride 110 H (98-107) mmol/L BUN 37 H (7-17) mg/dL Glucose 271 H (74-99) mg/dL POC Glucose (mg/dL) 259 H (75-99) mg/dL Calcium 8.0 L (8.4-10.2) mg/dL Total Bilirubin 2.7 H (0.2-1.3) mg/dL AST 51 H (14-36) U/L ALT 48 H (4-34) U/L Total Protein 5.4 L (6.3-8.2) g/dL Albumin 2.5 L (3.5-5.0) g/dL Crossmatch 04/26/19 04/26/19 Range/Units 17:10 18:26 WBC 3.2 L (3.8-10.6) k/uL RBC 2.12 L (3.80-5.40) m/uL Hgb 6.4 L* (11.4-16.0) gm/dL Hct 20.3 L (34.0-46.0) % MCV (80.0-100.0) fL RDW 21.5 H (11.5-15.5) % Plt Count 80 L (150-450) k/uL Lymphocytes # 0.3 L (1.0-4.8) k/uL Potassium (3.5-5.1) mmol/L Chloride (98-107) mmol/L BUN (7-17) mg/dL Glucose (74-99) mg/dL POC Glucose (mg/dL) 133 H (75-99) mg/dL Calcium (8.4-10.2) mg/dL Total Bilirubin (0.2-1.3) mg/dL AST (14-36) U/L ALT (4-34) U/L Total Protein (6.3-8.2) g/dL Albumin (3.5-5.0) g/dL Crossmatch Microbiology - Last 24 Hours (Table) 04/19/19 12:10 Blood Culture - Final Blood No Growth after 144 hours Assessment and Plan (1) Lymphoma Current Visit: Yes Status: Acute Priority: High Code(s): C85.90 - NON- HODGKIN LYMPHOMA, UNSPECIFIED, UNSPECIFIED SITE SNOMED Code(s): 570621444
[2019-04-26 17:12] LABS: Glucose,Whole Blood 133 mg/dL (75-99)
[2019-04-26] MEDS: FAMOTIDINE 20 MG/2 ML VIAL IVP SCH (17:26)
[2019-04-26] MEDS: ONDANSETRON 16 MG in SODIUM CHLORIDE 0.9% 50 ML IVPB SCH (17:26)
[2019-04-26] MEDS: LEVOFLOXACIN 250MG-D5W PMX 250 MG in DEXTROSE/WATER 1 50ML.BAG IVPB SCH (17:26)
[2019-04-26] MEDS: predniSONE 50 MG TAB PO SCH (17:26)
[2019-04-26] MEDS: predniSONE 20 MG TAB PO SCH (17:36)
--- NOTE | 2019-04-26 18:34 | P.PN ---
Subjective Progress Note Date: 04/26/19 Principal diagnosis: Symptomatic anemia Angioimmunoblastic T-cell lymphoma In f/u today pt has good color, eating, denies nausea, oral irritation, no pain, not moving much other then in room, mild SOB with exertion. No bleeding, diarrhea or constipation. Objective - Vital Signs Vital signs: Vital Signs Temp 98.4 F 04/26/19 16:00 Pulse 78 04/26/19 16:00 Resp 18 04/26/19 16:00 BP 125/69 04/26/19 16:00 Pulse Ox 98 04/26/19 16:00 Intake & Output 04/25/19 04/26/19 04/26/19 18:59 06:59 18:59 Intake Total 240 1310 360 Output Total 1 Balance 240 1309 360 Intake: IV 200 50 0.9 200 Levofloxacin 250Mg-D5w 50 Pmx 250 mg In Dextrose/ Water 1 50ml.bag @ 50 mls /hr IVPB Q24H [facility] Rx#: [id number] Intake, IV Titration 50 Amount Ondansetron 16 mg In 50 Sodium Chloride 0.9% 50 ml @ 232 mls/hr IVPB Q24H [facility] Rx#:[id number] Oral 240 840 Tube Feeding 220 Blood Product 310 Rc Irr As1 Unit 310 [id number] Output: Stool 1 Other: Voiding Method Toilet Toilet Toilet # Voids 2 3 - Constitutional General appearance: Present: average body habitus, cooperative, no acute distres s - EENT Eyes: Present: anicteric sclerae, EOMI ENT: Present: hearing grossly normal, normal oropharynx - Respiratory Respiratory: bilateral: CTA - Cardiovascular Rhythm: regular Heart sounds: normal: S1, S2 Abnormal Heart Sounds: Absent: systolic murmur, diastolic murmur, rub, S3 Gallop, S4 Gallop, click, other - Peripheral edema leg Peripheral Edema: bilateral: None - Gastrointestinal General gastrointestinal: Present: normal bowel sounds, soft - Integumentary Integumentary: Present: pale - Neurologic Neurologic: Present: CNII-XII intact - Musculoskeletal Musculoskeletal: Present: generalized weakness - Psychiatric Psychiatric: Present: A&O x's 3, appropriate affect, intact judgment & insight - Labs CBC & Chem 7: 04/26/19 09:44 04/26/19 09:44 Labs: Abnormal Lab Results - Last 24 Hours (Table) 04/25/19 04/25/19 04/26/19 Range/Units 10:31 19:57 07:15 WBC (3.8-10.6) k/uL RBC (3.80-5.40) m/uL Hgb (11.4-16.0) gm/dL Hct (34.0-46.0) % MCV (80.0-100.0) fL RDW (11.5-15.5) % Plt Count (150-450) k/uL Lymphocytes # (1.0-4.8) k/uL Potassium (3.5-5.1) mmol/L Chloride (98-107) mmol/L BUN (7-17) mg/dL Glucose (74-99) mg/dL POC Glucose (mg/dL) 225 H 227 H (75-99) mg/dL Calcium (8.4-10.2) mg/dL Total Bilirubin (0.2-1.3) mg/dL AST (14-36) U/L ALT (4-34) U/L Total Protein (6.3-8.2) g/dL Albumin (3.5-5.0) g/dL Crossmatch See Detail 04/26/19 04/26/19 04/26/19 Range/Units 09:44 09:44 11:14 WBC 1.8 L (3.8-10.6) k/uL RBC 1.81 L (3.80-5.40) m/uL Hgb 5.7 L* (11.4-16.0) gm/dL Hct 18.2 L* (34.0-46.0) % MCV 100.6 H (80.0-100.0) fL RDW 19.1 H (11.5-15.5) % Plt Count 76 L (150-450) k/uL Lymphocytes # 0.2 L (1.0-4.8) k/uL Potassium 5.3 H (3.5-5.1) mmol/L Chloride 110 H (98-107) mmol/L BUN 37 H (7-17) mg/dL Glucose 271 H (74-99) mg/dL POC Glucose (mg/dL) 259 H (75-99) mg/dL Calcium 8.0 L (8.4-10.2) mg/dL Total Bilirubin 2.7 H (0.2-1.3) mg/dL AST 51 H (14-36) U/L ALT 48 H (4-34) U/L Total Protein 5.4 L (6.3-8.2) g/dL Albumin 2.5 L (3.5-5.0) g/dL Crossmatch 04/26/19 Range/Units 17:10 WBC (3.8-10.6) k/uL RBC (3.80-5.40) m/uL Hgb (11.4-16.0) gm/dL Hct (34.0-46.0) % MCV (80.0-100.0) fL RDW (11.5-15.5) % Plt Count (150-450) k/uL Lymphocytes # (1.0-4.8) k/uL Potassium (3.5-5.1) mmol/L Chloride (98-107) mmol/L BUN (7-17) mg/dL Glucose (74-99) mg/dL POC Glucose (mg/dL) 133 H (75-99) mg/dL Calcium (8.4-10.2) mg/dL Total Bilirubin (0.2-1.3) mg/dL AST (14-36) U/L ALT (4-34) U/L Total Protein (6.3-8.2) g/dL Albumin (3.5-5.0) g/dL Crossmatch Microbiology - Last 24 Hours (Table) 04/19/19 12:10 Blood Culture - Final Blood No Growth after 144 hours Assessment and Plan (1) Lymphoma Narrative/Plan: New diagnosis, final path from [facility] reporting angioimmunoblastic T-cell lymphoma. We discussed likely bone marrow transplant in her future. Anticipate 5 day stay for urgent treatment. Initiated, pt doing well Supprotive meds Encourage activity to tolerance Diet as tolerated ECHO report reviewed Port placed Current Visit: Yes Status: Acute Priority: High Code(s): C85.90 - NON- HODGKIN LYMPHOMA, UNSPECIFIED, UNSPECIFIED SITE SNOMED Code(s): 348591509 (2) At high risk of tumor lysis syndrome Narrative/Plan: S/P 1 dose of Elitek, TLS labs stable. Labs daily Current Visit: Yes Status: Acute Priority: High Code(s): Z91.89 - OTH PERSONAL RISK FACTORS, NOT ELSEWHERE CLASSIFIED SNOMED Code(s): 576413116 (3) Anemia Narrative/Plan: Result of likely a degree of marrow involvement with lymphoma and hemolysis based on lab work up. Hgb down, labs suggestive of hemolysis, pt started pred with treatment. Conservative transfusions to keep Hgb 7 of greater. Current Visit: Yes Status: Acute Priority: High Code(s): D64.9 - ANEMIA, UNSPECIFIED SNOMED Code(s): 190254824 Plan: US ordered for abd distension and jaundice, no evidence of mechanical obstruction, some liver infiltration/disease, may be r/t lymphoma, bilirubin down today. Treatment started yesterday. Cont monitoring labs
[2019-04-26 18:49] LABS: Anisocytosis Moderate; Basophils % (A) 1 %; Eosinophils % (A) 0 %; HCT 20.3 % (34.0-46.0); Hypochromasia Slight; Lymphocytes # (A) 0.3 k/uL (1.0-4.8); Lymphocytes % (A) 8 %; MCH 30.4 pg (25.0-35.0); MCHC 31.8 g/dL (31.0-37.0); Macrocytosis Slight; Mean Platelet Volume 8.3; Monocytes # (A) 0.3 k/uL (0-1.0); Monocytes % (A) 8 %; Neutrophils # (A) 2.6 k/uL (1.3-7.7); Neutrophils % (A) 80 %; Platelet Count 80 k/uL (150-450); RBC 2.12 m/uL (3.80-5.40); RDW 21.5 % (11.5-15.5); WBC 3.2 k/uL (3.8-10.6)
[2019-04-26 18:57] LABS: HGB 6.4 gm/dL (11.4-16.0)
[2019-04-26 18:59] LABS: MCV 95.6 fL (80.0-100.0)
[2019-04-26] MEDS: VINCRISTINE SULFATE IV SCH (19:42)
[2019-04-26] MEDS: DOXORUBICIN HCL IV SCH (19:42)
[2019-04-26] MEDS: [UNRECOGNIZED DRUG - OTHER] IV SCH (19:42)
[2019-04-26] MEDS: ETOPOSIDE IV SCH (19:42)
[2019-04-26 19:52] LABS: Glucose,Whole Blood 183 mg/dL (75-99)
[2019-04-27] MEDS: LEVOTHYROXINE 75 MCG TAB PO SCH (06:08)
[2019-04-27 07:03] LABS: Glucose,Whole Blood 156 mg/dL (75-99)
[2019-04-27] MEDS: INSULIN DETEMIR (LEVEMIR) 100 UNIT/ML SYR SQ SCH ×2 (08:15→20:30)
[2019-04-27] MEDS: FOLIC ACID 1 MG TAB PO SCH (08:15)
[2019-04-27] MEDS: VENLAFAXINE HCL 75 MG TAB PO SCH (08:15)
[2019-04-27] MEDS: PANTOPRAZOLE 40 MG/10 ML VIAL IVP SCH (08:15)
[2019-04-27] MEDS: INSULIN ASPART (NovoLOG) 100 UNIT/ML VIAL SQ SCH ×7 (08:15→20:32)
[2019-04-27 08:38] LABS: ALT 52 U/L (4-34); AST 51 U/L (14-36); African American GFR (CKD) >90 (>60 ml/min/1.73 sqM); Albumin 2.6 g/dL (3.5-5.0); Alkaline Phosphatase 59 U/L (38-126); Anion Gap 5 mmol/L; Blood Urea Nitrogen 30 mg/dL (7-17); Calcium 7.8 mg/dL (8.4-10.2); Carbon Dioxide 24 mmol/L (22-30); Chloride 112 mmol/L (98-107); Glucose 143 mg/dL (74-99); Non-African American GFR(CKD) >90 (>60 ml/min/1.73 sqM); Potassium 5.2 mmol/L (3.5-5.1); Sodium 141 mmol/L (137-145); Total Bilirubin 2.7 mg/dL (0.2-1.3); Total Protein 5.6 g/dL (6.3-8.2); Uric Acid 5.7 mg/dL (3.7-7.4)
[2019-04-27 10:14] LABS: Anisocytosis Moderate; HCT 23.3 % (34.0-46.0); HGB 7.5 gm/dL (11.4-16.0); Hypochromasia Slight; MCH 30.7 pg (25.0-35.0); MCHC 32.1 g/dL (31.0-37.0); MCV 95.5 fL (80.0-100.0); Macrocytosis Slight; Mean Platelet Volume 8.4; RBC 2.45 m/uL (3.80-5.40); RDW 20.3 % (11.5-15.5); WBC 6.2 k/uL (3.8-10.6)
[2019-04-27 10:51] LABS: Band Neutrophils % 1 %; Basophils # (M) 0.19 k/uL (0-0.2); Lymphocytes # (M) 0.56 k/uL (1.0-4.8); Metamyelocytes # (M) 0.06 k/uL (0); Metamyelocytes % 1 %; Myelocytes # (M) 0.06 k/uL (0); Myelocytes % 1 %; Neutrophils % (M) 80 %; Nucleated Red Blood Cells 0 /100 WBC (0-0); Total Cells Counted 200
[2019-04-27 10:52] LABS: Poikilocytosis (M) Present; Toxic Granulation Present
[2019-04-27 12:02] LABS: Glucose,Whole Blood 120 mg/dL (75-99)
[2019-04-27 14:25] VITALS: BMI 39.4
--- NOTE | 2019-04-27 15:16 | P.PN ---
Subjective Progress Note Date: 04/27/19 Principal diagnosis: T-cell lymphoma Patient on day 2 of chemotherapy regimen for T-cell lymphoma. Patient did state she had some minor nausea during breakfast this morning, otherwise she states she is drinking and eating without concern. She is denies vomiting, diarrhea, shortness of breath, constipation, or pain. She is denies any concerns at this time and understands the current plan of care. Objective - Vital Signs Vital signs: Vital Signs Temp 97.9 F 04/27/19 12:00 Pulse 78 04/27/19 12:00 Resp 16 04/27/19 12:00 BP 133/78 04/27/19 12:00 Pulse Ox 99 04/27/19 12:00 Intake & Output 04/26/19 04/27/19 04/27/19 18:59 06:59 18:59 Intake Total 360 610 Output Total 1 Balance 360 609 Weight 104.4 kg Intake: IV 50 300 0.9 300 Levofloxacin 250Mg-D5w 50 Pmx 250 mg In Dextrose/ Water 1 50ml.bag @ 50 mls /hr IVPB Q24H [facility] Rx#: [id number] Blood Product 310 310 Rc Irr As1 Unit 310 [id number] Rc Irr As1 Unit 310 [id number] Output: Stool 1 Other: Voiding Method Toilet Toilet # Voids 2 - Constitutional General appearance: Present: average body habitus, cooperative, no acute distress - EENT Eyes: Present: anicteric sclerae, EOMI, normal appearance ENT: Present: hearing grossly normal - Respiratory Respiratory: bilateral: CTA - Cardiovascular Rhythm: regular Heart sounds: normal: S1, S2 - Gastrointestinal General gastrointestinal: Present: normal bowel sounds, soft - Integumentary Integumentary: Present: normal - Neurologic Neurologic: Present: CNII-XII intact - Musculoskeletal Musculoskeletal: Present: strength equal bilaterally - Psychiatric Psychiatric: Present: A&O x's 3, appropriate affect, intact judgment & insight - Labs CBC & Chem 7: 04/27/19 09:29 04/27/19 07:27 Labs: Abnormal Lab Results - Last 24 Hours (Table) 04/25/19 04/26/19 04/26/19 Range/Units 10:31 17:10 18:26 WBC 3.2 L (3.8-10.6) k/uL RBC 2.12 L (3.80-5.40) m/uL Hgb 6.4 L* (11.4-16.0) gm/dL Hct 20.3 L (34.0-46.0) % RDW 21.5 H (11.5-15.5) % Plt Count 80 L (150-450) k/uL Lymphocytes # 0.3 L (1.0-4.8) k/uL Lymphocytes # (Manual) (1.0-4.8) k/uL Metamyelocytes # (Man) (0) k/uL Myelocytes # (Manual) (0) k/uL Potassium (3.5-5.1) mmol/L Chloride (98-107) mmol/L BUN (7-17) mg/dL Glucose (74-99) mg/dL POC Glucose (mg/dL) 133 H (75-99) mg/dL Calcium (8.4-10.2) mg/dL Total Bilirubin (0.2-1.3) mg/dL AST (14-36) U/L ALT (4-34) U/L Total Protein (6.3-8.2) g/dL Albumin (3.5-5.0) g/dL Crossmatch See Detail 04/26/19 04/27/19 04/27/19 Range/Units 19:50 07:02 07:27 WBC (3.8-10.6) k/uL RBC (3.80-5.40) m/uL Hgb (11.4-16.0) gm/dL Hct (34.0-46.0) % RDW (11.5-15.5) % Plt Count (150-450) k/uL Lymphocytes # (1.0-4.8) k/uL Lymphocytes # (Manual) (1.0-4.8) k/uL Metamyelocytes # (Man) (0) k/uL Myelocytes # (Manual) (0) k/uL Potassium 5.2 H (3.5-5.1) mmol/L Chloride 112 H (98-107) mmol/L BUN 30 H (7-17) mg/dL Glucose 143 H (74-99) mg/dL POC Glucose (mg/dL) 183 H 156 H (75-99) mg/dL Calcium 7.8 L (8.4-10.2) mg/dL Total Bilirubin 2.7 H (0.2-1.3) mg/dL AST 51 H (14-36) U/L ALT 52 H (4-34) U/L Total Protein 5.6 L (6.3-8.2) g/dL Albumin 2.6 L (3.5-5.0) g/dL Crossmatch 04/27/19 04/27/19 Range/Units 09:29 12:00 WBC (3.8-10.6) k/uL RBC 2.45 L (3.80-5.40) m/uL Hgb 7.5 L (11.4-16.0) gm/dL Hct 23.3 L (34.0-46.0) % RDW 20.3 H (11.5-15.5) % Plt Count (150-450) k/uL Lymphocytes # (1.0-4.8) k/uL Lymphocytes # (Manual) 0.56 L (1.0-4.8) k/uL Metamyelocytes # (Man) 0.06 H (0) k/uL Myelocytes # (Manual) 0.06 H (0) k/uL Potassium (3.5-5.1) mmol/L Chloride (98-107) mmol/L BUN (7-17) mg/dL Glucose (74-99) mg/dL POC Glucose (mg/dL) 120 H (75-99) mg/dL Calcium (8.4-10.2) mg/dL Total Bilirubin (0.2-1.3) mg/dL AST (14-36) U/L ALT (4-34) U/L Total Protein (6.3-8.2) g/dL Albumin (3.5-5.0) g/dL Crossmatch Assessment and Plan (1) Lymphoma Narrative/Plan: Final path from [facility] reporting angioimmunoblastic T-cell lymphoma. We discussed likely bone marrow transplant in her future. Anticipate 5 day stay for urgent treatment. Initiated, pt doing well, day 2/3 today Supportive meds Encourage activity to tolerance Diet as tolerated ECHO report reviewed Port placed Current Visit: Yes Status: Acute Priority: High Code(s): C85.90 - NON- HODGKIN LYMPHOMA, UNSPECIFIED, UNSPECIFIED SITE SNOMED Code(s): 474887138 (2) At high risk of tumor lysis syndrome Narrative/Plan: S/P 1 dose of Elitek, TLS labs stable. Labs daily Current Visit: Yes Status: Resolved Priority: High Code(s): Z91.89 - OTH PERSONAL RISK FACTORS, NOT ELSEWHERE CLASSIFIED SNOMED Code(s): 518564542 (3) Anemia Narrative/Plan: Result of likely a degree of marrow involvement with lymphoma and hemolysis based on lab work up. Hgb improved, pt on pred with treatment. Conservative transfusions to keep Hgb 7 of greater. Current Visit: Yes Status: Acute Priority: High Code(s): D64.9 - ANEMIA, UNSPECIFIED SNOMED Code(s): 123831319 Plan: US ordered for abd distension and jaundice, no evidence of mechanical obstruction, some liver infiltration/disease, may be r/t lymphoma, bilirubin continues at 2.7 but down from 2 days ago. Treatment started Wednesday. Cont monitoring labs
[2019-04-27 17:07] LABS: Glucose,Whole Blood 143 mg/dL (75-99)
[2019-04-27] MEDS: LEVOFLOXACIN 250MG-D5W PMX 250 MG in DEXTROSE/WATER 1 50ML.BAG IVPB SCH (17:25)
--- NOTE | 2019-04-27 17:29 | P.PN ---
Subjective Progress Note Date: 04/27/19 his is a 68-year-old female one of my patient with a previous medical history significant for hypertension and hypertensive cardiovascular disease, hyperlipidemia, new diagnosis of diabetes mellitus type 2, history of breast cancer status post right lumpectomy with radiation therapy, diverticulosis, hypothyroidism, patient developed to have a a small lymph node in the back of her neck about 3 month ago and she was evaluated in my office at that time the lymph nodes were freely movable and small in size and eventually the lymph node got better for a bit and subsequently developed to have a significant lymphadenopathy in the right cervical and submandibular bilaterally along with right supraclavicular lymph node and left axillary and left inguinal lymph node, she went to Dr. Augustin's office for follow-up for her breast cancer surveillance and the patient underwent a biopsy of the supra clavicular lymph node on the right side that was done last week and the report just Back yesterday with T- cell lymphoma positive for CD30 was supposed to follow-up with her feed project engineer/oncologist on Wednesday for a treatment plan, the biopsy was sent to the [facility] for further recommendation and evaluation as well he shouldn't has been declining over the last week or so with poor appetite and increased edema in upper and lower extremities with increased abdominal distention and fatigue and generalized Megace and weakness and dark urine according to the patient I spoke with her daughter about 2 days ago and asked her to bring her to the ER if she is not improving patient showed up to the ER today and she was found to have hemoglobin of 5 significantly elevated LDH and bilirubin along with liver function test haptoglobin was still pending there were some concern of hemolytic anemia in view of her lymphoma, hematology oncology consult added and blood tests were ordered labs were drawn and the patient will be receiving 2 units of packed red blood cells after the antibodies are cleared through the blood bank ([facility]). Patient appears to be somewhat hypotensive a bit short of breath, she did receive 2 L of IV fluid at this point in time her blood pressure continues to be low, Lactic acid was high she would be admitted to the intensive care unit with consultation to Dr. Hurley for further evaluation recommendation. 04/20: Patient has been seen by oncology regarding lymphoma. They are waiting for subtype classification of pathology. Patient was started on Decadron. Lab work has been ordered for tumor lysis syndrome and patient was given 1 dose of Elitek. Patient is followed by Dr. Hurley as well. He has increased levothyroxine to 75 g. Repeat lab work reveals sodium 132, potassium 5.9, CO2 is 19, BUN 1266, creatinine 1.28. Repeat lactic acid is 3.4, phosphorus 5.6. Repeat uric acid normal at 5.3. Patient continues to shortness of breath with exertion. She complains of lightheadedness. She is waiting for blood transfusion. She denies having any chest pain or headache. Blood sugars are elevated running 197 at 212. Levemir will be added. 04/21: the patient is status post 2 units of packed RBCs and hemoglobin last evening was 7.1, this morning hemoglobin 6.7 and she is ordered for her third unit of packed RBCs. Patient has decreased urine output that is dark and IV fluids will continue at 75 mL per hour. Patient is not eating very much and Glucerna will be added for supplementation.she has been afebrile, heart rate 87, blood pressure 115/71, pulse ox 94% on room air. Family is hoping that the final pathology report will be available today. Awaiting further recommendations from oncology.blood sugars remain elevated despite starting L evemir last evening. Levemir will be increased to 18 units at bedtime. Continue NovoLog scale as well. 04/22: Patient is status post 3 units of PRBCs and hemoglobin is 7.2 this morning. Awaiting further information from [facility] for complete diagnosis. patient has been up in the [place]. Patient states that she feels stronger than she has prior to admission. Patient has 2+ pitting edema bilateral lower extremities. Urinary output has been 1 L over the night. Patient has been hemodynamically stable. Denies any dizziness lightheadedness or vision changes. 04/23: patient is up resting in the chair. Today is the first day of no steroids. Patient has been up in the [place] walking. Patient states that the swelling has decreased from yesterday and no difficulty breathing. patient s cheduled for a port placement early next week. Still awaiting results from [facility]. hemoglobin 7.3, hematocrit 22.1, potassium 5.3, BUN 63, creatinine 1.16,uric acid 6.6, phosphorus 4.6, magnesium 2.7. he has been hemodynamically stable. Denies any lightheadedness or efficiency. 04/24: patient remains in intensive care unit but waiting for a [facility] bed without telemetry. Patient is scheduled today for port placement with Dr. Jaime and an ultrasound of the abdomen due to elevated bilirubin. Tract bilirubin testing will be added. Patient is currently on IV fluids due to nothing by mouth status which will be discontinued following procedure and Lasix 20 mg given. 04/25: Patient is now seen on the [facility] floor. She underwent Port-A-Cath insertion yesterday with Dr. Jaime. Ultrasound of the abdomen revealed correlate for hepatocellular disease. Splenomegaly. Small amount of ascites. Limited exam. Repeat lab work reveals a CBC 2.2, hemoglobin 6.3, platelet count 96. Blood sugars run between 124 and 223. Total bilirubin 5.3, AST 59, ALT 59, alkaline phosphatase 59, LDH 949. Albumin 2.4. Delta bilirubin 0.9, unconjugated 2.6, conjugated 0. Oncology is starting the patient on Etoposide for 4 days, Cytoxan on April 29 dose. Patient also started on Prednisone 120 mg daily and pepcid for 5 days. in anticipation of hyperglycemia, Levemir will be changed to 10 units twice daily and Humalog 2 units scheduled with meals will be added as well. Patient denies having chest pain or shortness of breath. She complains of weakness. Consult with GI will be added regarding hepatocellular disease and jaundice. Hepatitis panel added. 04/26 patient evaluated bedside. Vitals are stable jaundice has improved. Evaluation of lab patient's hemoglobin dropped down to 5.7 today. Platelets 76. 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 Patient also started on Prednisone 120 mg daily and pepcid for 5 days. 04/27patient evaluated at bedside doing well jaundice is improved is able to communicate without any difficulty does complain of some weakness and nausea but otherwise able to tolerate diet without any difficulty hemoglobin is1.5 today. Patient to complete 4 days of chemotherapy with plan for future bone marrow transplantation.blood sugar well controlled on current regimen Review of Systems Constitutional: Reports anorexia, Reports fatigue, denies lethargy, Reports malaise, Reports sweats, Reports weakness Eyes: denies blurred vision, denies decreased vision Ears, nose, mouth and throat: Denies dysphagia, Denies neck lump, Denies swelling in throat, Denies sore throat Cardiovascular: Reports decreased exercise tolerance improved, denies dyspnea on exertion, Reports leg edema improved, denies lightheadedness, denies rapid heart beat, Denies shortness of breath, Denies chest pain, Denies syncope Respiratory: Denies congestion, Denies cough, Denies cough with sputum, Denies home oxygen, Denies sleep apnea, Denies snoring, Denies wheezing Gastrointestinal: Reports bloating, Reports early satiety, Reports loss of appetite, Denies abdominal pain, Denies change in bowel habits, Denies coffee ground emesis, Denies heartburn, Denies hematemesis, Denies hematochezia, Denies melena,positive for nausea, Denies vomiting Genitourinary: Denies dysuria, Denies hematuria Menstruation: Reports postmenopausal Musculoskeletal: Reports muscle weakness, Denies frequent falls Musculoskeletal: bilateral: ankle swelling, foot swelling, absent: ankle pain, ankle stiffness, as per HPI, elbow pain, elbow stiffness, elbow swelling, foot pain, foot stiffness, hand pain, hand stiffness, hand swelling, hip pain, hip stiffness, hip swelling, knee pain, knee stiffness, knee swelling, shoulder pain, shoulder stiffness, shoulder swelling, wrist pain, wrist stiffness, wrist swelling Integumentary: Denies pruritus, Denies rash Neurological: Denies numbness, Denies weakness Psychiatric: Reports anxiety, Reports depression, Denies sadness/tearfulness, Denies sleep disturbances, Denies suicidal ideation Endocrine: report fatigue, Denies weight change Objective - Vital Signs Vital signs: Vital Signs Temp 97.9 F 04/27/19 12:00 Pulse 78 04/27/19 12:00 Resp 16 04/27/19 12:00 BP 133/78 04/27/19 12:00 Pulse Ox 99 04/27/19 12:00 Intake & Output 04/26/19 04/27/19 04/27/19 18:59 06:59 18:59 Intake Total 360 610 Output Total 1 Balance 360 609 Weight 104.4 kg Intake: IV 50 300 0.9 300 Levofloxacin 250Mg-D5w 50 Pmx 250 mg In Dextrose/ Water 1 50ml.bag @ 50 mls /hr IVPB Q24H [facility] Rx#: [id number] Blood Product 310 310 Rc Irr As1 Unit 310 [id number] Rc Irr As1 Unit 310 [id number] Output: Stool 1 Other: Voiding Method Toilet Toilet # Voids 2 - Exam - Constitutional General appearance: cooperative, no acute distress, appropriate for age - EENT Eyes:, PERRLA, normal appearance, jaundice improved ENT: hearing grossly normal - Neck Neck: no lymphadenopathy, normal ROM, no other, no rigidity, no stridor, no thyromegaly - Respiratory Respiratory: bilateral: CTA, negative: diminished, dullness, rales, rhonchi - Cardiovascular Rhythm: regular Heart sounds: normal: S1, S2 Abnormal Heart Sounds: no systolic murmur, no diastolic murmur, no rub, no S3 Gallop, no S4 Gallop, no click, no other - Gastrointestinal General gastrointestinal: normal bowel sounds, softnontender - Integumentary Integumentary: no rash - Neurologic Neurologic: CNII-XII intact - Musculoskeletal Musculoskeletal: gait not assessed, strength equal bilaterally - Psychiatric Psychiatric: A&O x's 3, appropriate affect - Labs CBC & Chem 7: 04/27/19 09:29 04/27/19 07:27 Labs: Abnormal Lab Results - Last 24 Hours (Table) 04/25/19 04/26/19 04/26/19 Range/Units 10:31 18:26 19:50 WBC 3.2 L (3.8-10.6) k/uL RBC 2.12 L (3.80-5.40) m/uL Hgb 6.4 L* (11.4-16.0) gm/dL Hct 20.3 L (34.0-46.0) % RDW 21.5 H (11.5-15.5) % Plt Count 80 L (150-450) k/uL Lymphocytes # 0.3 L (1.0-4.8) k/uL Lymphocytes # (Manual) (1.0-4.8) k/uL Metamyelocytes # (Man) (0) k/uL Myelocytes # (Manual) (0) k/uL Potassium (3.5-5.1) mmol/L Chloride (98-107) mmol/L BUN (7-17) mg/dL Glucose (74-99) mg/dL POC Glucose (mg/dL) 183 H (75-99) mg/dL Calcium (8.4-10.2) mg/dL Total Bilirubin (0.2-1.3) mg/dL AST (14-36) U/L ALT (4-34) U/L Total Protein (6.3-8.2) g/dL Albumin (3.5-5.0) g/dL Crossmatch See Detail 04/27/19 04/27/19 04/27/19 Range/Units 07:02 07:27 09:29 WBC (3.8-10.6) k/uL RBC 2.45 L (3.80-5.40) m/uL Hgb 7.5 L (11.4-16.0) gm/dL Hct 23.3 L (34.0-46.0) % RDW 20.3 H (11.5-15.5) % Plt Count (150-450) k/uL Lymphocytes # (1.0-4.8) k/uL Lymphocytes # (Manual) 0.56 L (1.0-4.8) k/uL Metamyelocytes # (Man) 0.06 H (0) k/uL Myelocytes # (Manual) 0.06 H (0) k/uL Potassium 5.2 H (3.5-5.1) mmol/L Chloride 112 H (98-107) mmol/L BUN 30 H (7-17) mg/dL Glucose 143 H (74-99) mg/dL POC Glucose (mg/dL) 156 H (75-99) mg/dL Calcium 7.8 L (8.4-10.2) mg/dL Total Bilirubin 2.7 H (0.2-1.3) mg/dL AST 51 H (14-36) U/L ALT 52 H (4-34) U/L Total Protein 5.6 L (6.3-8.2) g/dL Albumin 2.6 L (3.5-5.0) g/dL Crossmatch 04/27/19 04/27/19 Range/Units 12:00 17:06 WBC (3.8-10.6) k/uL RBC (3.80-5.40) m/uL Hgb (11.4-16.0) gm/dL Hct (34.0-46.0) % RDW (11.5-15.5) % Plt Count (150-450) k/uL Lymphocytes # (1.0-4.8) k/uL Lymphocytes # (Manual) (1.0-4.8) k/uL Metamyelocytes # (Man) (0) k/uL Myelocytes # (Manual) (0) k/uL Potassium (3.5-5.1) mmol/L Chloride (98-107) mmol/L BUN (7-17) mg/dL Glucose (74-99) mg/dL POC Glucose (mg/dL) 120 H 143 H (75-99) mg/dL Calcium (8.4-10.2) mg/dL Total Bilirubin (0.2-1.3) mg/dL AST (14-36) U/L ALT (4-34) U/L Total Protein (6.3-8.2) g/dL Albumin (3.5-5.0) g/dL Crossmatch Assessment and Plan Plan: 1. 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 Oncology consult appreciated. Patient on Levaquin per horse doctor. on chemotherapy andLamb for bone marrow transplant in future 2. Acute symptomatic anemia. Status post transfusion of 4 units of packed RBCs. 3. T-cell lymphoma CD30 positive. chemotherapy initiated with etoposide, doxorubicin, vincristine emanuel 2and cyclophosphamide to be initiated on April 29await hematology oncology input. pathology suggestive angioimmunoblastic T- cell lymphoma 4. Hypertension and hypertensive cardiovascular disease currently hypotensive discontinue Lotrel for now. 5. Hypotension with hypoperfusion creating lactic acidosis. Continue IV fluid resuscitation, admitted to the intensive care unit, consult Dr. Hurley. 6. Tumor lysis syndrome. Oncology is following. Patient is status post Elitek. 7. Diabetes mellitus type 2, uncontrolled with hyperglycemia secondary to steroids. Continue NovoLog scale and increase Levemir to 10 units BID 8. Hyperlipidemia. Discontinue Crestor for now. 9. Hypothyroidism. Continue Synthroid increased to 75 g orally once every day. 10. Diverticulosis. Colonoscopy is up-to-date. 11. Recurrent Depression. Currently on Effexor XR 75 mg orally once every day. 12. DVT prophylaxis. Bilateral knee-high THA hose. 13. GI prophylaxis. Protonix 40 mg IV push every 24 hours. 14. Bicytopenia with anemia and thrombocytopenia secondary to underlying cancer. 15. Edema secondary to IV fluids. IV fluids to be discontinued following procedures and Lasix 20 mg IV push. 16. Hepatocellular disease. Ultrasound of the abdomen as above. consult with GI. Hepatitis panel ordered. Code status: full code. Discharge plan: To be determined.
[2019-04-27] MEDS: SODIUM CHLORIDE 0.9% 1,000 ML IV SCH (19:21)
[2019-04-27 20:00] LABS: Glucose,Whole Blood 129 mg/dL (75-99)
[2019-04-27] MEDS: ONDANSETRON 16 MG in SODIUM CHLORIDE 0.9% 50 ML IVPB SCH (20:20)
[2019-04-27] MEDS: FAMOTIDINE 20 MG/2 ML VIAL IVP SCH (20:21)
[2019-04-27] MEDS: predniSONE 20 MG TAB PO SCH (20:21)
[2019-04-27] MEDS: predniSONE 50 MG TAB PO SCH (20:21)
[2019-04-27] MEDS: ETOPOSIDE IV SCH (21:02)
[2019-04-27] MEDS: [UNRECOGNIZED DRUG - OTHER] IV SCH (21:02)
[2019-04-27] MEDS: DOXORUBICIN HCL IV SCH (21:02)
[2019-04-27] MEDS: VINCRISTINE SULFATE IV SCH (21:02)
[2019-04-28] MEDS: LEVOTHYROXINE 75 MCG TAB PO SCH (04:47)
[2019-04-28] MEDS: SODIUM CHLORIDE 0.9% 1,000 ML IV SCH (04:47)
[2019-04-28 07:05] LABS: Glucose,Whole Blood 183 mg/dL (75-99)
[2019-04-28] MEDS: FOLIC ACID 1 MG TAB PO SCH (08:59)
[2019-04-28] MEDS: VENLAFAXINE HCL 75 MG TAB PO SCH (08:59)
[2019-04-28] MEDS: INSULIN ASPART (NovoLOG) 100 UNIT/ML VIAL SQ SCH ×7 (08:59→20:21)
[2019-04-28] MEDS: INSULIN DETEMIR (LEVEMIR) 100 UNIT/ML SYR SQ SCH ×2 (09:00→20:44)
[2019-04-28] MEDS: PANTOPRAZOLE 40 MG/10 ML VIAL IVP SCH (09:00)
[2019-04-28 09:48] LABS: Anisocytosis Slight; Basophils % (A) 1 %; Eosinophils % (A) 0 %; HCT 22.1 % (34.0-46.0); HGB 7.2 gm/dL (11.4-16.0); Hypochromasia Moderate; Lymphocytes # (A) 0.2 k/uL (1.0-4.8); Lymphocytes % (A) 10 %; MCH 31.3 pg (25.0-35.0); MCHC 32.4 g/dL (31.0-37.0); MCV 96.6 fL (80.0-100.0); Macrocytosis Slight; Mean Platelet Volume 8.9; Monocytes # (A) 0.1 k/uL (0-1.0); Monocytes % (A) 3 %; Neutrophils # (A) 1.4 k/uL (1.3-7.7); Neutrophils % (A) 85 %; RBC 2.29 m/uL (3.80-5.40); RDW 19.8 % (11.5-15.5); WBC 1.7 k/uL (3.8-10.6)
[2019-04-28 10:06] LABS: ALT 55 U/L (4-34); AST 52 U/L (14-36); African American GFR (CKD) >90 (>60 ml/min/1.73 sqM); Albumin 2.6 g/dL (3.5-5.0); Alkaline Phosphatase 66 U/L (38-126); Anion Gap 4 mmol/L; Blood Urea Nitrogen 27 mg/dL (7-17); Calcium 7.7 mg/dL (8.4-10.2); Carbon Dioxide 25 mmol/L (22-30); Chloride 110 mmol/L (98-107); Glucose 195 mg/dL (74-99); Non-African American GFR(CKD) >90 (>60 ml/min/1.73 sqM); Phosphorus 3.3 mg/dL (2.5-4.5); Potassium 5.1 mmol/L (3.5-5.1); Sodium 139 mmol/L (137-145); Total Bilirubin 3.1 mg/dL (0.2-1.3); Total Protein 5.5 g/dL (6.3-8.2); Uric Acid 5.2 mg/dL (3.7-7.4)
[2019-04-28 11:21] LABS: Platelet Count 77 k/uL (150-450)
[2019-04-28 11:23] LABS: Poikilocytosis (M) Present
[2019-04-28 11:33] LABS: Glucose,Whole Blood 153 mg/dL (75-99)
[2019-04-28 12:09] LABS: Platelet Count 330 k/uL (150-450)
--- NOTE | 2019-04-28 16:55 | P.PN ---
Subjective Progress Note Date: 04/28/19 Principal diagnosis: T-cell lymphoma In f/u today pt is on day 3 of chemotherapy regimen for T-cell lymphoma. Denies F, oral irritation, nausea, mild SOB on exertion, no cough, chest pain, abd pain, diarrhea, constipation, bleeding, swelling or pain. Objective - Vital Signs Vital signs: Vital Signs Temp 97.9 F 04/28/19 11:33 Pulse 91 04/28/19 15:32 Resp 16 04/28/19 15:32 BP 125/68 04/28/19 11:33 Pulse Ox 99 04/28/19 11:33 Intake & Output 04/27/19 04/28/19 04/28/19 18:59 06:59 18:59 Intake Total 2110 1492.968 240 Output Total 2 403 Balance 2108 1492.968 -163 Weight 104.4 kg Intake: IV 50 Levofloxacin 250Mg-D5w 50 Pmx 250 mg In Dextrose/ Water 1 50ml.bag @ 50 mls /hr IVPB Q24H [facility] Rx#: [id number] Intake, IV Titration 500 242.968 Amount Etoposide 100 mg 500 192.968 DOXOrubicin HCL 20 mg vinCRIStine SULFATE 0.8 mg In Sodium Chloride 0.9 % 500 ml 500 ml @ 21.492 mls/hr IV Q24H [facility] Rx#: [id number] Ondansetron 16 mg In 50 Sodium Chloride 0.9% 50 ml @ 232 mls/hr IVPB Q24H [facility] Rx#:[id number] Oral 1560 1250 240 Output: Urine 400 Stool 2 3 Other: Voiding Method Toilet Toilet Toilet # Voids 5 2 3 - Constitutional General appearance: Present: average body habitus, cooperative, no acute distress - EENT Eyes: Present: anicteric sclerae, EOMI ENT: Present: hearing grossly normal, normal oropharynx - Respiratory Respiratory: bilateral: CTA - Cardiovascular Rhythm: regular Heart sounds: normal: S1, S2 - Peripheral edema foot Peripheral Edema: bilateral: 1+ - Gastrointestinal General gastrointestinal: Present: normal bowel sounds, soft. Absent: absent bowel sounds, decreased bowel sounds, distended, hepatomegaly, hyperactive bowel sounds, organomegaly, rigid, scaphoid, splenomegaly, tenderness, umbilical hernia, ventral hernia - Integumentary Integumentary: Present: normal - Neurologic Neurologic: Present: CNII-XII intact - Musculoskeletal Musculoskeletal: Present: strength equal bilaterally - Psychiatric Psychiatric: Present: A&O x's 3, appropriate affect, intact judgment & insight - Labs CBC & Chem 7: 04/28/19 08:59 04/28/19 08:59 Labs: Abnormal Lab Results - Last 24 Hours (Table) 04/27/19 04/27/19 04/28/19 Range/Units 17:06 19:59 07:04 WBC (3.8-10.6) k/uL RBC (3.80-5.40) m/uL Hgb (11.4-16.0) gm/dL Hct (34.0-46.0) % RDW (11.5-15.5) % Plt Count (150-450) k/uL Lymphocytes # (1.0-4.8) k/uL Chloride (98-107) mmol/L BUN (7-17) mg/dL Glucose (74-99) mg/dL POC Glucose (mg/dL) 143 H 129 H 183 H (75-99) mg/dL Calcium (8.4-10.2) mg/dL Total Bilirubin (0.2-1.3) mg/dL AST (14-36) U/L ALT (4-34) U/L Total Protein (6.3-8.2) g/dL Albumin (3.5-5.0) g/dL 04/28/19 04/28/19 04/28/19 Range/Units 08:59 08:59 11:31 WBC 1.7 L (3.8-10.6) k/uL RBC 2.29 L (3.80-5.40) m/uL Hgb 7.2 L (11.4-16.0) gm/dL Hct 22.1 L (34.0-46.0) % RDW 19.8 H (11.5-15.5) % Plt Count 77 L D (150-450) k/uL Lymphocytes # 0.2 L (1.0-4.8) k/uL Chloride 110 H (98-107) mmol/L BUN 27 H (7-17) mg/dL Glucose 195 H (74-99) mg/dL POC Glucose (mg/dL) 153 H (75-99) mg/dL Calcium 7.7 L (8.4-10.2) mg/dL Total Bilirubin 3.1 H (0.2-1.3) mg/dL AST 52 H (14-36) U/L ALT 55 H (4-34) U/L Total Protein 5.5 L (6.3-8.2) g/dL Albumin 2.6 L (3.5-5.0) g/dL Assessment and Plan (1) Lymphoma Narrative/Plan: Final path from [facility] reporting angioimmunoblastic T-cell lymphoma. We discussed likely bone marrow transplant in her future. Anticipate 5 day stay for urgent treatment, currently on day 3/4. Supportive meds Encourage activity to tolerance Diet as tolerated ECHO report reviewed Port placed Current Visit: Yes Status: Acute Priority: High Code(s): C85.90 - NON- HODGKIN LYMPHOMA, UNSPECIFIED, UNSPECIFIED SITE SNOMED Code(s): 652582870 (2) At high risk of tumor lysis syndrome Current Visit: Yes Status: Resolved Priority: High Code(s): Z91.89 - OTH PERSONAL RISK FACTORS, NOT ELSEWHERE CLASSIFIED SNOMED Code(s): 113884793 (3) Anemia Narrative/Plan: Result of likely a degree of marrow involvement with lymphoma and hemolysis based on lab work up. Hgb currently stable, pt not needing transfusion. Conservative transfusions to keep Hgb greater then 7. Current Visit: Yes Status: Acute Priority: High Code(s): D64.9 - ANEMIA, UNSPECIFIED SNOMED Code(s): 922258817 Plan: US done for abd distension and jaundice, no evidence of mechanical obstruction, some liver infiltration/disease, may be r/t lymphoma. Bilirubin up today to 3.1, possibly effects of treatment. No acute intervention. Cont monitoring labs
[2019-04-28] MEDS ORDERED: FUROSEMIDE 10 MG/ML 2 ML VIAL IV ONE (17:16)
--- NOTE | 2019-04-28 17:20 | P.PN ---
Subjective Progress Note Date: 04/28/19 his is a 68-year-old female one of my patient with a previous medical history significant for hypertension and hypertensive cardiovascular disease, hyperlipidemia, new diagnosis of diabetes mellitus type 2, history of breast cancer status post right lumpectomy with radiation therapy, diverticulosis, hypothyroidism, patient developed to have a a small lymph node in the back of her neck about 3 month ago and she was evaluated in my office at that time the lymph nodes were freely movable and small in size and eventually the lymph node got better for a bit and subsequently developed to have a significant lymphadenopathy in the right cervical and submandibular bilaterally along with right supraclavicular lymph node and left axillary and left inguinal lymph node, she went to Dr. 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/oncologist on Wednesday for a treatment plan, the biopsy was sent to the [facility] for further recommendation and evaluation as well he shouldn't has been declining over the last week or so with poor appetite and increased edema in upper and lower extremities with increased abdominal distention and fatigue and generalized Megace and weakness and dark urine according to the patient I spoke with her daughter about 2 days ago and asked her to bring her to the ER if she is not improving patient showed up to the ER today and she was found to have hemoglobin of 5 significantly elevated LDH and bilirubin along with liver function test haptoglobin was still pending there were some concern of hemolytic anemia in view of her lymphoma, hematology oncology consult added and blood tests were ordered labs were drawn and the patient will be receiving 2 units of packed red blood cells after the antibodies are cleared through the blood bank ([facility]). Patient appears to be somewhat hypotensive a bit short of breath, she did receive 2 L of IV fluid at this point in time her blood pressure continues to be low, Lactic acid was high she would be admitted to the intensive care unit with consultation to Dr. Hurley for further evaluation recommendation. 04/20: Patient has been seen by oncology regarding lymphoma. They are waiting for subtype classification of pathology. Patient was started on Decadron. Lab work has been ordered for tumor lysis syndrome and patient was given 1 dose of Elitek. Patient is followed by Dr. Hurley as well. He has increased levothyroxine to 75 g. Repeat lab work reveals sodium 132, potassium 5.9, CO2 is 19, BUN 1266, creatinine 1.28. Repeat lactic acid is 3.4, phosphorus 5.6. Repeat uric acid normal at 5.3. Patient continues to shortness of breath with exertion. She complains of lightheadedness. She is waiting for blood transfusion. She denies having any chest pain or headache. Blood sugars are elevated running 197 at 212. Levemir will be added. 04/21: the patient is status post 2 units of packed RBCs and hemoglobin last evening was 7.1, this morning hemoglobin 6.7 and she is ordered for her third unit of packed RBCs. Patient has decreased urine output that is dark and IV fluids will continue at 75 mL per hour. Patient is not eating very much and Glucerna will be added for supplementation.she has been afebrile, heart rate 87, blood pressure 115/71, pulse ox 94% on room air. Family is hoping that the final pathology report will be available today. Awaiting further recommendations from oncology.blood sugars remain elevated despite starting L evemir last evening. Levemir will be increased to 18 units at bedtime. Continue NovoLog scale as well. 04/22: Patient is status post 3 units of PRBCs and hemoglobin is 7.2 this morning. Awaiting further information from [facility] for complete diagnosis. patient has been up in the [place] walking. Patient states that she feels stronger than she has prior to admission. Patient has 2+ pitting edema bilateral lower extremities. Urinary output has been 1 L over the night. Patient has been hemodynamically stable. Denies any dizziness lightheadedness or vision changes. 04/23: patient is up resting in the chair. Today is the first day of no steroids. Patient has been up in the [place] walking. Patient states that the swelling has decreased from yesterday and no difficulty breathing. patient s cheduled for a port placement early next week. Still awaiting results from [facility]. hemoglobin 7.3, hematocrit 22.1, potassium 5.3, BUN 63, creatinine 1.16,uric acid 6.6, phosphorus 4.6, magnesium 2.7. he has been hemodynamically stable. Denies any lightheadedness or efficiency. 04/24: patient remains in intensive care unit but waiting for a [facility] bed without telemetry. Patient is scheduled today for port placement with Dr. Jaime and an ultrasound of the abdomen due to elevated bilirubin. Tract bilirubin testing will be added. Patient is currently on IV fluids due to nothing by mouth status which will be discontinued following procedure and Lasix 20 mg given. 04/25: Patient is now seen on the [facility] floor. She underwent Port-A-Cath insertion yesterday with Dr. Jaime. Ultrasound of the abdomen revealed correlate for hepatocellular disease. Splenomegaly. Small amount of ascites. Limited exam. Repeat lab work reveals a CBC 2.2, hemoglobin 6.3, platelet count 96. Blood sugars run between 124 and 223. Total bilirubin 5.3, AST 59, ALT 59, alkaline phosphatase 59, LDH 949. Albumin 2.4. Delta bilirubin 0.9, unconjugated 2.6, conjugated 0. Oncology is starting the patient on Etoposide for 4 days, Cytoxan on April 29 dose. Patient also started on Prednisone 120 mg daily and pepcid for 5 days. in anticipation of hyperglycemia, Levemir will be changed to 10 units twice daily and Humalog 2 units scheduled with meals will be added as well. Patient denies having chest pain or shortness of breath. She complains of weakness. Consult with GI will be added regarding hepatocellular disease and jaundice. Hepatitis panel added. 04/26 patient evaluated bedside. Vitals are stable jaundice has improved. Evaluation of lab patient's hemoglobin dropped down to 5.7 today. Platelets 76. 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 Patient also started on Prednisone 120 mg daily and pepcid for 5 days. 04/27patient evaluated at bedside doing well jaundice is improved is able to communicate without any difficulty does complain of some weakness and nausea but otherwise able to tolerate diet without any difficulty hemoglobin is1.5 today. Patient to complete 4 days of chemotherapy with plan for future bone marrow transplantation.blood sugar well controlled on current regimen 04/28 patient evaluated bedside. Appears/but denies any fever or chills. Patient denies any chest pain does feel a dematiaceous in the lower extremit y.blood sugar ranging from 129-195. Patient's hemoglobin has dropped to 7.2 this morning. Uric acid is 5.2 phosphorus is 3.3. Will give [id number] IV of Lasix.Lantus increased to 12 units twice a day. Amlodipine restarted at 5 mg once a dayhold Benzapril Review of Systems Constitutional: Reports anorexia, Reports fatigue, denies lethargy, Reports malaise, Reports sweats, Reports weakness Eyes: denies blurred vision, denies decreased vision Ears, nose, mouth and throat: Denies dysphagia, Denies neck lump, Denies swelling in throat, Denies sore throat Cardiovascular: Reports decreased exercise tolerance improved, denies dyspnea on exertion,lower extremity edema, denies lightheadedness, denies rapid heart beat, Denies shortness of breath, Denies chest pain, Denies syncope Respiratory: Denies congestion, Denies cough, Denies cough with sputum, Denies home oxygen, Denies sleep apnea, Denies snoring, Denies wheezing Gastrointestinal: Reports bloating, Reports early satiety, Reports loss of appetite, Denies abdominal pain, Denies change in bowel habits, Denies coffee ground emesis, Denies heartburn, Denies hematemesis, Denies hematochezia, Denies melena,nausea improved, Denies vomiting Genitourinary: Denies dysuria, Denies hematuria Menstruation: Reports postmenopausal Musculoskeletal: Reports muscle weakness, Denies frequent falls Musculoskeletal: bilateral: ankle swelling, foot swelling, absent: ankle pain, ankle stiffness, as per HPI, elbow pain, elbow stiffness, elbow swelling, foot pain, foot stiffness, hand pain, hand stiffness, hand swelling, hip pain, hip stiffness, hip swelling, knee pain, knee stiffness, knee swelling, shoulder pain, shoulder stiffness, shoulder swelling, wrist pain, wrist stiffness, wrist swelling Integumentary: Denies pruritus, Denies rash Neurological: Denies numbness, Denies weakness Psychiatric: Reports anxiety, Reports depression, Denies sadness/tearfulness, D enies sleep disturbances, Denies suicidal ideation Endocrine: report fatigue, Denies weight change Objective - Vital Signs Vital signs: Vital Signs Temp 98.4 F 04/28/19 16:00 Pulse 77 04/28/19 16:00 Resp 18 04/28/19 16:00 BP 147/76 04/28/19 16:00 Pulse Ox 99 04/28/19 16:00 Intake & Output 04/27/19 04/28/19 04/28/19 18:59 06:59 18:59 Intake Total 2110 1492.968 240 Output Total 2 403 Balance 2108 1492.968 -163 Weight 104.4 kg Intake: IV 50 Levofloxacin 250Mg-D5w 50 Pmx 250 mg In Dextrose/ Water 1 50ml.bag @ 50 mls /hr IVPB Q24H ADITI Rx#: [id number] Intake, IV Titration 500 242.968 Amount Etoposide 100 mg 500 192.968 DOXOrubicin HCL 20 mg vinCRIStine SULFATE 0.8 mg In Sodium Chloride 0.9 % 500 ml 500 ml @ 21.492 mls/hr IV Q24H [facility]I Rx#: [id number] Ondansetron 16 mg In 50 Sodium Chloride 0.9% 50 ml @ 232 mls/hr IVPB Q24H AD[facility]I Rx#:[id number] Oral 1560 1250 240 Output: Urine 400 Stool 2 3 Other: Voiding Method Toilet Toilet Toilet # Voids 5 2 3 - Exam - Constitutional General appearance: cooperative, no acute distress, appropriate for age - EENT Eyes:, PERRLA, normal appearance, jaundice improved ENT: hearing grossly normal - Neck Neck: no lymphadenopathy, normal ROM, no other, no rigidity, no stridor, no thyromegaly - Respiratory Respiratory: bilateral: CTA, negative: diminished, dullness, rales, rhonchi - Cardiovascular Rhythm: regular Heart sounds: normal: S1, S2 Abnormal Heart Sounds: no systolic murmur, no diastolic murmur, no rub, no S3 Gallop, no S4 Gallop,2+ pitting edema - Gastrointestinal General gastrointestinal: normal bowel sounds, softnontender - Integumentary Integumentary: no rash - Neurologic Neurologic: CNII-XII intact - Musculoskeletal Musculoskeletal: gait not assessed, strength equal bilaterally - Psychiatric Psychiatric: A&O x's 3, appropriate affect - Labs CBC & Chem 7: 04/28/19 08:59 04/28/19 08:59 Labs: Abnormal Lab Results - Last 24 Hours (Table) 04/27/19 04/28/19 04/28/19 Range/Units 19:59 07:04 08:59 WBC 1.7 L (3.8-10.6) k/uL RBC 2.29 L (3.80-5.40) m/uL Hgb 7.2 L (11.4-16.0) gm/dL Hct 22.1 L (34.0-46.0) % RDW 19.8 H (11.5-15.5) % Plt Count 77 L D (150-450) k/uL Lymphocytes # 0.2 L (1.0-4.8) k/uL Chloride (98-107) mmol/L BUN (7-17) mg/dL Glucose (74-99) mg/dL POC Glucose (mg/dL) 129 H 183 H (75-99) mg/dL Calcium (8.4-10.2) mg/dL Total Bilirubin (0.2-1.3) mg/dL AST (14-36) U/L ALT (4-34) U/L Total Protein (6.3-8.2) g/dL Albumin (3.5-5.0) g/dL 04/28/19 04/28/19 Range/Units 08:59 11:31 WBC (3.8-10.6) k/uL RBC (3.80-5.40) m/uL Hgb (11.4-16.0) gm/dL Hct (34.0-46.0) % RDW (11.5-15.5) % Plt Count (150-450) k/uL Lymphocytes # (1.0-4.8) k/uL Chloride 110 H (98-107) mmol/L BUN 27 H (7-17) mg/dL Glucose 195 H (74-99) mg/dL POC Glucose (mg/dL) 153 H (75-99) mg/dL Calcium 7.7 L (8.4-10.2) mg/dL Total Bilirubin 3.1 H (0.2-1.3) mg/dL AST 52 H (14-36) U/L ALT 55 H (4-34) U/L Total Protein 5.5 L (6.3-8.2) g/dL Albumin 2.6 L (3.5-5.0) g/dL Assessment and Plan Plan: 1. 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 Oncology consult appreciated. 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 on chemotherapy and plan for bone marrow transplant in future 2. Acute symptomatic anemia. Status post transfusion of 4 units of packed RBCs. 3. T-cell lymphoma CD30 positive. chemotherapy initiated with etoposide, doxorubicin, vincristine emanuel 2and cyclophosphamide to be initiated on April 29await hematology oncology input. pathology suggestive angioimmunoblastic T- cell lymphoma 4. Hypertension and hypertensive cardiovascular disease stablecan be started on amlodipine 5 mg daily. 5. Hypotension with hypoperfusion creating lactic acidosis.resolved, admitted to the intensive care unit, consult Dr. Hurley. 6. Tumor lysis syndrome. Oncology is following. Patient is status post Elitek. 7. Diabetes mellitus type 2, uncontrolled with hyperglycemia secondary to steroids. Continue NovoLog scale and increase Levemir to 12 units BID 8. Hyperlipidemia. Discontinue Crestor for now. 9. Hypothyroidism. Continue Synthroid increased to 75 g orally once every day. 10. Diverticulosis. Colonoscopy is up-to-date. 11. Recurrent Depression. Currently on Effexor XR 75 mg orally once every day. 12. DVT prophylaxis. Bilateral knee-high THA hose. 13. GI prophylaxis. Protonix 40 mg IV push every 24 hours. 14. Bicytopenia with anemia and thrombocytopenia secondary to underlying cancer. 15. Edema secondary to IV fluids. IV fluids to be discontinued Lasix 20 mg IV push once on . 16. Hepatocellular disease. Ultrasound of the abdomen as above. consult with GI. Hepatitis panel ordered. Code status: full code. Discharge plan: To be determined.
[2019-04-28 17:23] LABS: Glucose,Whole Blood 113 mg/dL (75-99)
[2019-04-28 19:47] LABS: Glucose,Whole Blood 142 mg/dL (75-99)
[2019-04-28] MEDS: ONDANSETRON 16 MG in SODIUM CHLORIDE 0.9% 50 ML IVPB SCH (20:12)
[2019-04-28] MEDS: predniSONE 20 MG TAB PO SCH (20:12)
[2019-04-28] MEDS: predniSONE 50 MG TAB PO SCH (20:13)
[2019-04-28] MEDS: FAMOTIDINE 20 MG/2 ML VIAL IVP SCH (20:13)
[2019-04-28] MEDS: ETOPOSIDE IV SCH (21:05)
[2019-04-28] MEDS: [UNRECOGNIZED DRUG - OTHER] IV SCH (21:05)
[2019-04-28] MEDS: VINCRISTINE SULFATE IV SCH (21:05)
[2019-04-28] MEDS: DOXORUBICIN HCL IV SCH (21:05)
[2019-04-29] MEDS: LEVOTHYROXINE 75 MCG TAB PO SCH (06:02)
[2019-04-29 06:52] LABS: Glucose,Whole Blood 179 mg/dL (75-99)
[2019-04-29 07:08] LABS: Anisocytosis Slight; Basophils % (A) 1 %; Eosinophils % (A) 1 %; Hypochromasia Slight; Lymphocytes # (A) 0.1 k/uL (1.0-4.8); Lymphocytes % (A) 10 %; MCH 31.5 pg (25.0-35.0); MCHC 32.5 g/dL (31.0-37.0); MCV 96.7 fL (80.0-100.0); Macrocytosis Slight; Mean Platelet Volume 8.4; Monocytes % (A) 1 %; Neutrophils # (A) 1.3 k/uL (1.3-7.7); Neutrophils % (A) 87 %; RBC 2.07 m/uL (3.80-5.40); RDW 19.2 % (11.5-15.5); WBC 1.5 k/uL (3.8-10.6)
[2019-04-29 07:11] LABS: ALT 56 U/L (4-34); AST 54 U/L (14-36); African American GFR (CKD) >90 (>60 ml/min/1.73 sqM); Albumin 2.6 g/dL (3.5-5.0); Alkaline Phosphatase 54 U/L (38-126); Anion Gap 3 mmol/L; Blood Urea Nitrogen 26 mg/dL (7-17); Calcium 7.6 mg/dL (8.4-10.2); Carbon Dioxide 27 mmol/L (22-30); Chloride 110 mmol/L (98-107); Glucose 171 mg/dL (74-99); Non-African American GFR(CKD) >90 (>60 ml/min/1.73 sqM); Sodium 140 mmol/L (137-145); Total Bilirubin 2.9 mg/dL (0.2-1.3); Total Protein 5.3 g/dL (6.3-8.2); Uric Acid 4.8 mg/dL (3.7-7.4)
[2019-04-29 07:13] LABS: Platelet Count 61 k/uL (150-450)
[2019-04-29 07:15] LABS: HGB 6.5 gm/dL (11.4-16.0)
[2019-04-29] MEDS: INSULIN DETEMIR (LEVEMIR) 100 UNIT/ML SYR SQ SCH ×2 (09:47→20:53)
[2019-04-29] MEDS: PANTOPRAZOLE 40 MG/10 ML VIAL IVP SCH (09:47)
[2019-04-29] MEDS: FOLIC ACID 1 MG TAB PO SCH (09:48)
[2019-04-29] MEDS: amLODIPine 5 MG TAB PO SCH (09:48)
[2019-04-29] MEDS: INSULIN ASPART (NovoLOG) 100 UNIT/ML VIAL SQ SCH ×7 (09:48→20:40)
[2019-04-29] MEDS: VENLAFAXINE HCL 75 MG TAB PO SCH (09:49)
[2019-04-29 11:13] LABS: Glucose,Whole Blood 156 mg/dL (75-99)
--- NOTE | 2019-04-29 12:50 | P.PN ---
Subjective Progress Note Date: 04/29/19 Principal diagnosis: T-cell lymphoma patient continued to be hemodynamically stable no major events reported by nursing staff patient's tolerating chemotherapy without difficulty and vital signs continued to be stable at the bedside old concerns and questions addressed at the bedside Objective - Vital Signs Vital signs: Vital Signs Temp 97.9 F 04/29/19 12:00 Pulse 77 04/29/19 12:00 Resp 18 04/29/19 12:00 BP 131/70 04/29/19 12:00 Pulse Ox 100 04/29/19 12:00 Intake & Output 04/28/19 04/29/19 04/29/19 18:59 06:59 18:59 Intake Total 240 732.6 Output Total 403 1 Balance -163 732.6 -1 Intake: Intake, IV Titration 242.6 Amount Etoposide 100 mg 192.6 DOXOrubicin HCL 20 mg vinCRIStine SULFATE 0.8 mg In Sodium Chloride 0.9 % 500 ml 500 ml @ 21.492 mls/hr IV Q24H [facility] Rx#: [id number] Ondansetron 16 mg In 50 Sodium Chloride 0.9% 50 ml @ 232 mls/hr IVPB Q24H [facility] Rx#:[id number] Oral 240 490 Output: Urine 400 Stool 3 1 Other: Voiding Method Toilet Toilet Toilet # Voids 3 2 - Exam Gen.: in stated age, no acute distress Heart: Normal S1-S2 Lungs: Clear to auscultation bilaterally Abdomen: Soft, no tenderness, positive bowel sounds in all 4 quadrant no guarding or rebound Skin: No new rash Psych: Alert and oriented 3 Neuro: No focal deficit - Labs CBC & Chem 7: 04/29/19 06:00 04/29/19 06:00 Labs: Abnormal Lab Results - Last 24 Hours (Table) 04/28/19 04/28/19 04/29/19 Range/Units 17:21 19:45 06:00 WBC 1.5 L (3.8-10.6) k/uL RBC 2.07 L (3.80-5.40) m/uL Hgb 6.5 L* (11.4-16.0) gm/dL Hct 20.0 L (34.0-46.0) % RDW 19.2 H (11.5-15.5) % Plt Count 61 L (150-450) k/uL Lymphocytes # 0.1 L (1.0-4.8) k/uL Chloride (98-107) mmol/L BUN (7-17) mg/dL Glucose (74-99) mg/dL POC Glucose (mg/dL) 113 H 142 H (75-99) mg/dL Calcium (8.4-10.2) mg/dL Total Bilirubin (0.2-1.3) mg/dL AST (14-36) U/L ALT (4-34) U/L Total Protein (6.3-8.2) g/dL Albumin (3.5-5.0) g/dL 04/29/19 04/29/19 04/29/19 Range/Units 06:00 06:51 11:00 WBC (3.8-10.6) k/uL RBC (3.80-5.40) m/uL Hgb (11.4-16.0) gm/dL Hct (34.0-46.0) % RDW (11.5-15.5) % Plt Count (150-450) k/uL Lymphocytes # (1.0-4.8) k/uL Chloride 110 H (98-107) mmol/L BUN 26 H (7-17) mg/dL Glucose 171 H (74-99) mg/dL POC Glucose (mg/dL) 179 H 156 H (75-99) mg/dL Calcium 7.6 L (8.4-10.2) mg/dL Total Bilirubin 2.9 H (0.2-1.3) mg/dL AST 54 H (14-36) U/L ALT 56 H (4-34) U/L Total Protein 5.3 L (6.3-8.2) g/dL Albumin 2.6 L (3.5-5.0) g/dL Assessment and Plan Assessment: 1. T-cell lymphoma. 2. Diabetes mellitus type 2. 3. Anemia of chronic disease. 4. Leukopenia. 5. Thrombocytopenia. 6. GERD. 7. Electrolyte imbalance. Plan discussed with nursing staff and with patient and her at the bedside where we would like to continue supportive care encourage oral intake monitor her glucose closely continue with 2 units transfusion as instructed by hematology oncology repeat her blood work in the morning patient currently with leukopenia but her neutrophils is greater than 500 will consider isolation per hospital policy and per oncology recommendation. Patient seems to be hemodynamically stable and still have guarded prognosis at this point
[2019-04-29 13:36] LABS: Cold Agglutinins NONE DETECTED Titer
[2019-04-29 17:20] LABS: Glucose,Whole Blood 119 mg/dL (75-99)
[2019-04-29] MEDS: predniSONE 20 MG TAB PO SCH (20:04)
[2019-04-29] MEDS: ONDANSETRON 16 MG in SODIUM CHLORIDE 0.9% 50 ML IVPB SCH (20:04)
[2019-04-29] MEDS: predniSONE 50 MG TAB PO SCH (20:04)
[2019-04-29] MEDS: FAMOTIDINE 20 MG/2 ML VIAL IVP SCH (20:05)
[2019-04-29 20:40] LABS: Glucose,Whole Blood 124 mg/dL (75-99)
--- NOTE | 2019-04-29 20:44 | PN ---
PROGRESS NOTE DATE OF SERVICE: April 29, 2019. CHIEF COMPLAINT: Tired. Mariela is seen today as a followup. She feels a little tired, but otherwise she is tolerating chemo very well. No nausea or vomiting. No melena, hematochezia, hematuria or hemoptysis. She is eating well and ambulating well. MEDICATION: Reviewed in electronic medical record. PHYSICAL EXAMINATION: On physical examination, she is alert, oriented x3. She does not appear to be in acute distress. Her vital signs are temperature 98.6, pulse 80 regular, respiration 18, blood pressure 135/77. HEENT normocephalic, atraumatic. No icterus. NECK is supple. CHEST equal expansion bilaterally. LUNGS are clear to auscultation. HEART regular rate and rhythm. ABDOMEN is soft. No organomegaly. EXTREMITIES: Reveals no edema. LABORATORY DATA: From today, WBC are 1.5, hemoglobin is 6.5, hematocrit 20.0, platelets are 61. Sodium 140, potassium 5.0, chloride 110, CO2 27, BUN 26, creatinine 0.5, calcium 7.6, total bilirubin is 2.9, AST is 54, ALT is 56, uric acid 4.8. IMPRESSION: 1. Angioimmunoblastic T-cell lymphoma with generalized lymphadenopathy, bone marrow involvement, and she had an episode of tumor lysis syndrome, which appeared to have resolved. 2. Pancytopenia secondary to above. RECOMMENDATIONS: 1. Continue CHOEP as scheduled. 2. The patient will receive blood transfusion today. 3. Monitor blood count very closely. 4. Monitor electrolyte and uric acid. 5. Continue supportive care. Once chemotherapy completed, the patient could be discharged home and she was instructed to follow up in the office early next week. She will need granulocyte colony-stimulating factor. Frequent monitoring of her count and supportive transfusion as needed. In regard to further treatment, the patient will require further systemic chemotherapy and she is going to require autologous stem cell transplantation. I did discuss with the patient and her family the aggressive nature of her lymphoma. MMODL / IJN: [id number] /
[2019-04-29] MEDS ORDERED: SODIUM CHLORIDE 0.9% IV ONE (21:00)
[2019-04-29] MEDS ORDERED: CYCLOPHOSPHAMIDE IV ONE (21:00)
[2019-04-30] MEDS: LEVOTHYROXINE 75 MCG TAB PO SCH (05:37)
[2019-04-30 07:05] LABS: Anisocytosis Slight; Basophils % (A) 1 %; Eosinophils % (A) 1 %; HCT 23.1 % (34.0-46.0); HGB 7.7 gm/dL (11.4-16.0); Hypochromasia Slight; Lymphocytes # (A) 0.1 k/uL (1.0-4.8); Lymphocytes % (A) 8 %; MCH 31.2 pg (25.0-35.0); MCHC 33.4 g/dL (31.0-37.0); MCV 93.4 fL (80.0-100.0); Macrocytosis Slight; Monocytes # (A) 0.1 k/uL (0-1.0); Monocytes % (A) 6 %; Neutrophils # (A) 1.3 k/uL (1.3-7.7); Neutrophils % (A) 84 %; RBC 2.47 m/uL (3.80-5.40); WBC 1.6 k/uL (3.8-10.6)
[2019-04-30 07:07] LABS: Glucose,Whole Blood 166 mg/dL (75-99)
[2019-04-30 07:14] LABS: Platelet Count 54 k/uL (150-450)
[2019-04-30 07:24] LABS: ALT 56 U/L (4-34); AST 45 U/L (14-36); African American GFR (CKD) >90 (>60 ml/min/1.73 sqM); Albumin 2.5 g/dL (3.5-5.0); Alkaline Phosphatase 59 U/L (38-126); Anion Gap 2 mmol/L; Blood Urea Nitrogen 23 mg/dL (7-17); Calcium 7.4 mg/dL (8.4-10.2); Carbon Dioxide 29 mmol/L (22-30); Chloride 110 mmol/L (98-107); Glucose 164 mg/dL (74-99); Non-African American GFR(CKD) >90 (>60 ml/min/1.73 sqM); Potassium 4.7 mmol/L (3.5-5.1); Sodium 141 mmol/L (137-145); Total Bilirubin 4.1 mg/dL (0.2-1.3); Total Protein 5.1 g/dL (6.3-8.2)
[2019-04-30] MEDS: INSULIN ASPART (NovoLOG) 100 UNIT/ML VIAL SQ SCH ×4 (08:15→12:44)
[2019-04-30] MEDS: FOLIC ACID 1 MG TAB PO SCH (08:15)
[2019-04-30] MEDS: PANTOPRAZOLE 40 MG/10 ML VIAL IVP SCH (08:15)
[2019-04-30] MEDS: amLODIPine 5 MG TAB PO SCH (08:15)
[2019-04-30] MEDS: VENLAFAXINE HCL 75 MG TAB PO SCH (08:17)
[2019-04-30] MEDS: INSULIN DETEMIR (LEVEMIR) 100 UNIT/ML SYR SQ SCH (08:17)
[2019-04-30 08:51] VITALS: RESP 18
[2019-04-30 11:17] LABS: Glucose,Whole Blood 141 mg/dL (75-99)
[2019-04-30 12:06] VITALS: BP 137/71; PULSE 74; TEMP 98.3
--- NOTE | 2019-04-30 12:07 | P.DS ---
Providers Date of admission: 04/19/19 13:55 Attending physician: Messi Gaffney Consults: 04/19/19 13:55 Consult Physician Urgent Consulting Provider: Biju Gonzalez Consult Reason/Comments: History lymphoma, anemia Do you want consulting provider notified?: Yes 04/19/19 16:09 Consult Physician Urgent Consulting Provider: Milton Hurley Consult Reason/Comments: Critical care management Do you want consulting provider notified?: Yes 04/21/19 17:57 Consult Physician Routine Consulting Provider: Hu Jaime Consult Reason/Comments: Port placement for chemo Do you want consulting provider notified?: Yes Primary care physician: Messi Gaffney Hospital Course: this is 68 years old female with recent diagnosis of angioimmunoblastic T-cell lymphoma with generalized lymphadenopathy and bone marrow involvementwho had an episode of tumor lysis syndrome which appears to have resolved patient had pancytopenia secondary to the above and received aggressive course of chemotherapy per hematology oncology during this hospital stay with close monitoring for his kidney function CBC and general condition patient tolerated dose very well was ambulating in the room tolerating diet stated that her pain and the fifth control and patient felt that she is at least 75% improved since presentation. Patient was seen by hematology oncology who recommended discharge patient home and have her follow-up in the office tomorrow morning at 8:00. Patient counseled regarding medication adherence and close follow-up with hematology oncology and specially her medication to be followed and managed by her primary oncologist. Plan discussed with patient and her at the bedside in the presence of nursing staff and patient was discharged home in stable condition Plan - Discharge Summary Discharge Rx Participant: No New Discharge Prescriptions: No Action amLODIPine BESYLATE/BENAZEPRIL [Lotrel 5-40 mg Capsule] 1 cap PO DAILY Levothyroxine Sodium [Levoxyl] 50 mcg PO DAILY Rosuvastatin Calcium [Crestor] 5 mg PO DAILY metFORMIN HCL [Glucophage] 500 mg PO BID Venlafaxine HCl [Effexor] 75 mg PO DAILY Ibuprofen [Motrin] 800 mg PO TID Discharge Medication List amLODIPine BESYLATE/BENAZEPRIL [Lotrel 5-40 mg Capsule] 1 cap PO DAILY 10/09/13 [History] Levothyroxine Sodium [Levoxyl] 50 mcg PO DAILY 04/03/19 [History] Rosuvastatin Calcium [Crestor] 5 mg PO DAILY 04/03/19 [History] metFORMIN HCL [Glucophage] 500 mg PO BID 04/03/19 [History] Ibuprofen [Motrin] 800 mg PO TID 04/19/19 [History] Venlafaxine HCl [Effexor] 75 mg PO DAILY 04/19/19 [History] Follow up Appointment(s)/Referral(s): Hu Jaime MD [Medical Doctor] - 1 Week (Patient to call Dr. Jaime's office Wednesday morning to schedule follow up appointment. The office is closed at time of discharge. ) Messi Gaffney MD [Primary Care Provider] - 1-2 days (Patient to call Dr. Gaffney's office Wednesday morning to schedule follow up appointment. The office is closed at time of discharge.) [facility] Vis[facility] Nurse, [NON-STAFF] - 1-2 Days Biju Gonzalez MD [STAFF PHYSICIAN] - 05/01/19 8:00 am (Appt is for GCSF injec tion and to make f/u appts) Patient Instructions/Handouts: Non-Hodgkin Lymphoma (DC), Eating During Cancer Treatment (DC), Self Care Measures With Cancer (DC), Weakness (DC), Anemia (DC), Chemo Induced Nausea and Vomiting (DC), Intravenous Chemotherapy (DC)
== END 2019-04-30 13:15 | disposition home or self-care (01) | DRG 823 ==
LOC: EC 11:52 → 3SCARD 13:55 → 2SICU 16:23 → 5NMEDONC 04-25 01:30
PROVIDERS: ADMIT Internal Medicine; ATTEND Internal Medicine
PROC: 02HV33Z Insertion of Infusion Device into Superior Vena Cava, Percutaneous Approach (ICD-10-PCS; principal; 2019-04-24 13:25)
PROC: 0JH60WZ Insertion of Totally Implantable Vascular Access Device into Chest Subcutaneous Tissue and Fascia, Open Approach (ICD-10-PCS; principal; 2019-04-24 13:25)
PROC: 0JH63XZ Insertion of Tunneled Vascular Access Device into Chest Subcutaneous Tissue and Fascia, Percutaneous Approach (ICD-10-PCS; principal; 2019-04-24 13:25)
PROC: 3E05305 Introduction of Other Antineoplastic into Peripheral Artery, Percutaneous Approach (ICD-10-PCS; 2019-04-26)
PROC: 30233N1 Transfusion of Nonautologous Red Blood Cells into Peripheral Vein, Percutaneous Approach (ICD-10-PCS; 2019-04-29)
DX: C86.5 Angioimmunoblastic T-cell lymphoma (principal); E88.3 Tumor lysis syndrome; D59.1 Other autoimmune hemolytic anemias; D61.818 Other pancytopenia; E87.2 Acidosis; F33.9 Major depressive disorder, recurrent, unspecified; E03.9 Hypothyroidism, unspecified; D63.8 Anemia in other chronic diseases classified elsewhere; E11.65 Type 2 diabetes mellitus with hyperglycemia; E78.5 Hyperlipidemia, unspecified; E83.52 Hypercalcemia; I11.9 Hypertensive heart disease without heart failure; I34.0 Nonrheumatic mitral (valve) insufficiency; K21.9 Gastro-esophageal reflux disease without esophagitis; K57.90 Diverticulosis of intestine, part unspecified, without perforation or abscess without bleeding; K76.0 Fatty (change of) liver, not elsewhere classified; T38.0X5A Adverse effect of glucocorticoids and synthetic analogues, initial encounter; Z79.4 Long term (current) use of insulin; Z79.890 Hormone replacement therapy; Z79.899 Other long term (current) drug therapy; Z80.0 Family history of malignant neoplasm of digestive organs; Z80.3 Family history of malignant neoplasm of breast; Z82.49 Family history of ischemic heart disease and other diseases of the circulatory system; Z85.3 Personal history of malignant neoplasm of breast; Z90.710 Acquired absence of both cervix and uterus; Z88.0 Allergy status to penicillin; I95.9 Hypotension, unspecified
CPT/HCPCS: 36415; 71046; 76700; 77001; 80048; 80053; 80074; 81001; 82248; 82272; 82533; 82728; 83010; 83036; 83540; 83550; 83605; 83615; 83735; 84100; 84439; 84443; 84550; 85025; 85027; 85045; 85610; 85730; 86157; 86738; 86747; 86850; 86860; 86870; 86880; 86885; 86900; 86901; 86902; 86905; 86920; 86970; 86978; 87040; 87502; 93005; 93306; 96361; 96374; 99291

== ENCOUNTER 2019-05-03 14:29 | Inpatient (IN) | payer MEDICARE, BC ==
--- NOTE | 2019-05-03 15:26 | ED ---
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 She denies any overt nausea vomiting fevers chills or sweats. She does state that she believes she gained quite a bit of weight over last couple weeks. She is complaining of increased peripheral edema. No other modifying factors he does have a history of hypertension thyroid disease hypertension and enlarged spleen as well as fatty liver. No known gallbladder problems. - Related Data Home Medications Medication Instructions Recorded Confirmed amLODIPine BESYLATE/BENAZEPRIL 1 cap PO DAILY 10/09/13 04/19/19 [Lotrel 5-40 mg Capsule] Levothyroxine Sodium [Levoxyl] 50 mcg PO DAILY 04/03/19 04/19/19 Rosuvastatin Calcium [Crestor] 5 mg PO DAILY 04/03/19 04/19/19 metFORMIN HCL [Glucophage] 500 mg PO BID 04/03/19 04/19/19 Ibuprofen [Motrin] 800 mg PO TID 04/19/19 04/19/19 Venlafaxine HCl [Effexor] 75 mg PO DAILY 04/19/19 04/19/19 Allergies Allergy/AdvReac Type Severity Reaction Status Date / Time Penicillins Allergy Unknown Rash/Hives Verified 04/19/19 13:06 Review of Systems ROS Statement: Those systems with pertinent positive or pertinent negative responses have been documented in the HPI. ROS Other: All systems not noted in ROS Statement are negative. Past Medical History Past Medical History: Cancer, Diabetes Mellitus, Hyperlipidemia, Hypertension, Thyroid Disorder Additional Past Medical History / Comment(s): Pt states she was told 04/18/19 that she has lymphoma-no treatment plan yet, recent hands/legs/feet edema, R breast cancer with lumpectomy and radiation treatments, NIDDM type II, hypothyroid, diverticular disease History of Any Multi-Drug Resistant Organisms: None Reported Past Surgical History: Breast Surgery, Section, Hysterectomy Additional Past Surgical History / Comment(s): 04/12/19 R supraclavicular lymph node core biopsy, right breast lumpectomy, colonoscopy Past Anesthesia/Blood Transfusion Reactions: No Reported Reaction Past Psychological History: No Psychological Hx Reported Smoking Status: Never smoker Past Alcohol Use History: Rare Past Drug Use History: None Reported - Past Family History Father Family Medical History: Myocardial Infarction ([place]) (Father at age of 52 from CAD and congestive heart failure.) Additional Family Medical History / Comment(s): [place] times 2-first [place] at the age of 35yrs and from 2nd [place] at the age of age 52 Mother Family Medical History: Cancer (Mother at the age of 74 from pink cancer.) Additional Family Medical History / Comment(s): Mother of pancreatic cancer in her 70s. Brother(s) History Unknown: Yes Sister(s) Family Medical History: Cancer (Patient has 2 sisters one of them with breast cancer.) Daughter(s) Family Medical History: No Reported History (Patient has one daughter who is an ICU nurse no major medical problems.) Son(s) Family Medical History: No Reported History (Patient has one son no major medical problems.) General Exam - General Exam Comments Initial Comments: This is a well up well-nourished awake alert oriented 3 female General appearance: alert, in no apparent distress Head exam: Present: atraumatic, normocephalic, normal inspection Eye exam: Present: other ( mildly icteric sclera) ENT exam: Present: mucous membranes dry Neck exam: Present: normal inspection. Absent: tenderness, meningismus, lymphadenopathy Respiratory exam: Present: normal lung sounds bilaterally. Absent: respiratory distress, wheezes, rales, rhonchi, stridor Cardiovascular Exam: Present: normal rhythm, tachycardia, normal heart sounds. Absent: systolic murmur, diastolic murmur, rubs, gallop, clicks GI/Abdominal exam: Present: soft, normal bowel sounds. Absent: distended, tenderness, guarding, rebound, rigid Extremities exam: Present: normal inspection, full ROM, normal capillary refill, pedal edema. Absent: tenderness, joint swelling, calf tenderness Back exam: Present: normal inspection Neurological exam: Present: alert, oriented X3, CN II-XII intact Psychiatric exam: Present: normal affect, normal mood Skin exam: Present: warm, dry, intact, normal color. Absent: rash Course Vital Signs 05/03/19 14:57 Temperature 99.0 F Pulse Rate 106 H Respiratory 20 Rate Blood Pressure 129/75 O2 Sat by Pulse 100 Oximetry - Reevaluation(s) Reevaluation #1: 05/03/19 17:32 Voice the patient revealed no change in her status he is awake alert and maintains stable vital signs. EKG Findings - EKG Results: EKG: interpreted by ERMD, sinus rhythm (Sinus tachycardia rate of 11. Interval 162 QRS 80 QT since QTC 308/[address]-T wave configuration) Medical Decision Making - Medical Decision Making Did discuss the findings with patient and family members as well as with Dr. Adair and with Dr. Bullock.. Patient will be admitted due to the findings and the white count she will be started on antibiotics but has been ordered 2 units. Patient does have elevated bilirubin I did discuss this with the patient. 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 Differential Comment Manual Slide Review Performed Anisocytosis Slight Macrocytosis Slight PT (9.0-12.0) sec INR (<1.2) APTT (22.0-30.0) sec Sodium 138 (137-145) mmol/L Potassium 3.9 (3.5-5.1) mmol/L Chloride 106 (98-107) mmol/L Carbon Dioxide 25 (22-30) mmol/L Anion Gap 7 mmol/L BUN 27 H (7-17) mg/dL Creatinine 0.52 (0.52-1.04) mg/dL Est GFR (CKD-EPI)AfAm >90 (>60 ml/min/1.73 sqM) Est GFR (CKD-EPI)NonAf >90 (>60 ml/min/1.73 sqM) Glucose 171 H (74-99) mg/dL Plasma Lactic Acid Carloz 2.7 H* (0.7-2.0) mmol/L Calcium 7.9 L (8.4-10.2) mg/dL Magnesium 1.9 (1.6-2.3) mg/dL Total Bilirubin 6.5 H (0.2-1.3) mg/dL AST 28 (14-36) U/L ALT 31 (4-34) U/L Alkaline Phosphatase 58 (38-126) U/L Creatine Kinase <20 L (30-135) U/L Troponin I (0.000-0.034) ng/mL NT-Pro-B Natriuret Pep pg/mL Total Protein 4.7 L (6.3-8.2) g/dL Albumin 2.4 L (3.5-5.0) g/dL 05/03/19 05/03/19 05/03/19 Range/Units 15:33 15:33 15:33 WBC (3.8-10.6) k/uL RBC (3.80-5.40) m/uL Hgb (11.4-16.0) gm/dL Hct (34.0-46.0) % MCV (80.0-100.0) fL MCH (25.0-35.0) pg MCHC (31.0-37.0) g/dL RDW (11.5-15.5) % Plt Count (150-450) k/uL Neutrophils # Differential Comment Manual Slide Review Anisocytosis Macrocytosis PT 12.1 H (9.0-12.0) sec INR 1.2 H (<1.2) APTT 31.4 H (22.0-30.0) sec Sodium (137-145) mmol/L Potassium (3.5-5.1) mmol/L Chloride (98-107) mmol/L Carbon Dioxide (22-30) mmol/L Anion Gap mmol/L BUN (7-17) mg/dL Creatinine (0.52-1.04) mg/dL Est GFR (CKD-EPI)AfAm (>60 ml/min/1.73 sqM) Est GFR (CKD-EPI)NonAf (>60 ml/min/1.73 sqM) Glucose (74-99) mg/dL Plasma Lactic Acid Carloz (0.7-2.0) mmol/L Calcium (8.4-10.2) mg/dL Magnesium (1.6-2.3) mg/dL Total Bilirubin (0.2-1.3) mg/dL AST (14-36) U/L ALT (4-34) U/L Alkaline Phosphatase (38-126) U/L Creatine Kinase (30-135) U/L Troponin I 0.027 (0.000-0.034) ng/mL NT-Pro-B Natriuret Pep 382 pg/mL Total Protein (6.3-8.2) g/dL Albumin (3.5-5.0) g/dL - Radiology Data Radiology results: report reviewed (I did review the imaging and report evidence of a new small right pleural effusion with adjacent atelectasis versus infiltrate.), image reviewed Disposition Clinical Impression: Anemia, Leukemia, Leukopenia, Jaundice Disposition: ADMITTED IP TO THIS HOSP Condition: Fair Referrals: Messi Gaffney MD [Primary Care Provider] - 1-2 days
[2019-05-03 15:56] LABS: Anisocytosis Slight; MCH 31.6 pg (25.0-35.0); MCHC 34.2 g/dL (31.0-37.0); MCV 92.5 fL (80.0-100.0); Macrocytosis Slight; Mean Platelet Volume 10.9; RBC 1.48 m/uL (3.80-5.40); RDW 19.5 % (11.5-15.5)
[2019-05-03 16:00] LABS: ALT 31 U/L (4-34); AST 28 U/L (14-36); African American GFR (CKD) >90 (>60 ml/min/1.73 sqM); Albumin 2.4 g/dL (3.5-5.0); Alkaline Phosphatase 58 U/L (38-126); Anion Gap 7 mmol/L; Blood Urea Nitrogen 27 mg/dL (7-17); Calcium 7.9 mg/dL (8.4-10.2); Carbon Dioxide 25 mmol/L (22-30); Chloride 106 mmol/L (98-107); Creatine Kinase <20 U/L (30-135); Glucose 171 mg/dL (74-99); Magnesium 1.9 mg/dL (1.6-2.3); Non-African American GFR(CKD) >90 (>60 ml/min/1.73 sqM); Potassium 3.9 mmol/L (3.5-5.1); Sodium 138 mmol/L (137-145); Total Bilirubin 6.5 mg/dL (0.2-1.3); Total Protein 4.7 g/dL (6.3-8.2); WBC 0.4 k/uL (3.8-10.6)
[2019-05-03 16:01] LABS: HCT 13.7 % (34.0-46.0); HGB 4.7 gm/dL (11.4-16.0); Platelet Count 22 k/uL (150-450)
[2019-05-03 16:03] LABS: INR 1.2 (<1.2); Partial Thromboplastin Time 31.4 sec (22.0-30.0); Prothrombin Time 12.1 sec (9.0-12.0)
--- NOTE | 2019-05-03 16:16 | XR ---
EXAMINATION TYPE: XR chest 2V DATE OF EXAM: 05/03/2019 COMPARISON: 04/24/2019 HISTORY: 68-year-old female with weakness TECHNIQUE: PA and lateral views FINDINGS: Right anterior chest wall injection port with catheter tip at the lower SVC. Arteries borderline enla rged. Mild diffuse interstitial prominence. Increasing interstitial densities within the right hemith orax with new small right pleural effusion. IMPRESSION: New small right pleural effusion with adjacent atelectasis and/or consolidation. Increasing interstit ial infiltrate on the right. Correlate for pneumonia versus early atypical interstitial edema.
[2019-05-03] MEDS ORDERED: NALOXONE 0.4 MG/ML 1 ML VIAL IV PRN (17:37)
[2019-05-03] MEDS ORDERED: ONDANSETRON 4 MG/2 ML VIAL IVP PRN (17:37)
[2019-05-03] MEDS ORDERED: VANCOMYCIN IV PER PHARMACY 1 EACH MISC MISCELLANE PRN (17:47)
--- NOTE | 2019-05-03 17:50 | ED ---
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 Differential Comment Manual Slide Review Performed Anisocytosis Slight Macrocytosis Slight PT (9.0-12.0) sec INR (<1.2) APTT (22.0-30.0) sec Sodium 138 (137-145) mmol/L Potassium 3.9 (3.5-5.1) mmol/L Chloride 106 (98-107) mmol/L Carbon Dioxide 25 (22-30) mmol/L Anion Gap 7 mmol/L BUN 27 H (7-17) mg/dL Creatinine 0.52 (0.52-1.04) mg/dL Est GFR (CKD-EPI)AfAm >90 (>60 ml/min/1.73 sqM) Est GFR (CKD-EPI)NonAf >90 (>60 ml/min/1.73 sqM) Glucose 171 H (74-99) mg/dL Plasma Lactic Acid Carloz 2.7 H* (0.7-2.0) mmol/L Calcium 7.9 L (8.4-10.2) mg/dL Magnesium 1.9 (1.6-2.3) mg/dL Total Bilirubin 6.5 H (0.2-1.3) mg/dL AST 28 (14-36) U/L ALT 31 (4-34) U/L Alkaline Phosphatase 58 (38-126) U/L Creatine Kinase <20 L (30-135) U/L Troponin I (0.000-0.034) ng/mL NT-Pro-B Natriuret Pep pg/mL Total Protein 4.7 L (6.3-8.2) g/dL Albumin 2.4 L (3.5-5.0) g/dL 05/03/19 05/03/19 05/03/19 Range/Units 15:33 15:33 15:33 WBC (3.8-10.6) k/uL RBC (3.80-5.40) m/uL Hgb (11.4-16.0) gm/dL Hct (34.0-46.0) % MCV (80.0-100.0) fL MCH (25.0-35.0) pg MCHC (31.0-37.0) g/dL RDW (11.5-15.5) % Plt Count (150-450) k/uL Neutrophils # Differential Comment Manual Slide Review Anisocytosis Macrocytosis PT 12.1 H (9.0-12.0) sec INR 1.2 H (<1.2) APTT 31.4 H (22.0-30.0) sec Sodium (137-145) mmol/L Potassium (3.5-5.1) mmol/L Chloride (98-107) mmol/L Carbon Dioxide (22-30) mmol/L Anion Gap mmol/L BUN (7-17) mg/dL Creatinine (0.52-1.04) mg/dL Est GFR (CKD-EPI)AfAm (>60 ml/min/1.73 sqM) Est GFR (CKD-EPI)NonAf (>60 ml/min/1.73 sqM) Glucose (74-99) mg/dL Plasma Lactic Acid Carloz (0.7-2.0) mmol/L Calcium (8.4-10.2) mg/dL Magnesium (1.6-2.3) mg/dL Total Bilirubin (0.2-1.3) mg/dL AST (14-36) U/L ALT (4-34) U/L Alkaline Phosphatase (38-126) U/L Creatine Kinase (30-135) U/L Troponin I 0.027 (0.000-0.034) ng/mL NT-Pro-B Natriuret Pep 382 pg/mL Total Protein (6.3-8.2) g/dL Albumin (3.5-5.0) g/dL Disposition Clinical Impression: Anemia, Leukemia, Leukopenia, Jaundice, Thrombocytopenia Disposition: ADMITTED IP TO THIS HOSP Condition: Fair Referrals: Messi Gaffney MD [Primary Care Provider] - 1-2 days Procedures - [place] Protocol (Time Out) Nurse: Lasha Mortensen
[2019-05-03 18:26] LABS: Appearance,Urine Clear (Clear); Bacteria,Urine Occasional /hpf; Bilirubin,Urine Negative (Negative); Blood,Urine Negative (Negative); Color,Urine Light Orange; Glucose,Urine (UA) Negative (Negative); Ketones,Urine Negative (Negative); Leukocyte Esterase,Urine Small (Negative); Mucus,Urine Rare /hpf; Nitrite,Urine Negative (Negative); PH, Urine 5.5 (5.0-8.0); Protein,Urine Negative (Negative); RBC,Urine 1 /hpf (0-5); Specific Gravity,Urine 1.016 (1.001-1.035); Squamous Epithelial Cell,Urine 1 /hpf (0-4); WBC,Urine 2 /hpf (0-5)
[2019-05-03] MEDS: SODIUM CHLORIDE 0.9% 1,000 ML IV SCH (18:52)
[2019-05-03] MEDS: CEFEPIME 2 GM in SODIUM CHLORIDE 0.9% 100 ML IVPB SCH (18:53)
[2019-05-03] MEDS: metFORMIN 500 MG TAB PO SCH (18:53)
[2019-05-03 18:55] LABS: Glucose,Whole Blood 147 mg/dL (75-99)
[2019-05-03] MEDS: VANCOMYCIN 1,750 MG in SODIUM CHLORIDE 0.9% 500 ML 500 ML IVPB SCH (21:01)
[2019-05-03 21:11] LABS: Glucose,Whole Blood 171 mg/dL (75-99)
[2019-05-04] MEDS: CEFEPIME 2 GM in SODIUM CHLORIDE 0.9% 100 ML IVPB SCH ×3 (00:09→15:30)
[2019-05-04 05:39] LABS: Anisocytosis Moderate; Hypochromasia Slight; MCH 31.3 pg (25.0-35.0); MCHC 32.8 g/dL (31.0-37.0); MCV 95.3 fL (80.0-100.0); Macrocytosis Slight; RDW 20.3 % (11.5-15.5)
[2019-05-04 05:43] LABS: African American GFR (CKD) >90 (>60 ml/min/1.73 sqM); Anion Gap 5 mmol/L; Blood Urea Nitrogen 30 mg/dL (7-17); Calcium 7.5 mg/dL (8.4-10.2); Carbon Dioxide 24 mmol/L (22-30); Chloride 108 mmol/L (98-107); Glucose 159 mg/dL (74-99); Non-African American GFR(CKD) >90 (>60 ml/min/1.73 sqM); Potassium 4.2 mmol/L (3.5-5.1); Sodium 137 mmol/L (137-145); WBC 0.2 k/uL (3.8-10.6)
[2019-05-04 05:44] LABS: HCT 10.5 % (34.0-46.0); HGB 3.4 gm/dL (11.4-16.0)
[2019-05-04 05:45] LABS: Platelet Count 15 k/uL (150-450)
[2019-05-04 06:02] LABS: Rouleaux Present
[2019-05-04 06:03] LABS: Anisocytosis (M) Present
[2019-05-04 07:19] LABS: Glucose,Whole Blood 178 mg/dL (75-99)
[2019-05-04] MEDS: LEVOTHYROXINE 50 MCG TAB PO SCH (07:20)
[2019-05-04] MEDS: SODIUM CHLORIDE 0.9% 1,000 ML IV SCH ×2 (07:20→18:14)
[2019-05-04] MEDS: metFORMIN 500 MG TAB PO SCH ×2 (07:20→17:17)
[2019-05-04] MEDS: LISINOPRIL 20 MG TAB PO SCH (08:47)
[2019-05-04] MEDS: PANTOPRAZOLE 40 MG/10 ML VIAL IV SCH (08:47)
[2019-05-04] MEDS: amLODIPine 5 MG TAB PO SCH (08:48)
[2019-05-04] MEDS: VENLAFAXINE HCL 75 MG TAB PO SCH (08:48)
[2019-05-04] MEDS ORDERED: ATORVASTATIN 10 MG TAB PO SCH (09:00)
[2019-05-04] MEDS ORDERED: DEXAMETHASONE 4 MG TAB PO SCH (09:15)
[2019-05-04] MEDS: VANCOMYCIN 1,750 MG in SODIUM CHLORIDE 0.9% 500 ML 500 ML IVPB SCH ×2 (09:15→20:24)
[2019-05-04 09:42] LABS: Bilirubin, Conjugated 0.5 mg/dL (0.0-0.3); Bilirubin, Delta 1.7 mg/dL (0.0-0.2); Bilirubin,Unconjugated 5.4 mg/dL (0.0-1.1); Total Bilirubin 7.6 mg/dL (0.2-1.3)
[2019-05-04 10:33] LABS: Reticulocyte % 0.2 % (0.5-2.0)
[2019-05-04] MEDS: DEXAMETHASONE SOD PHOS (MDV) 100 MG/10 ML VIAL IVP SCH ×3 (10:47→18:14)
[2019-05-04] MEDS ORDERED: SODIUM CHLORIDE 0.9% 1,000 ML IV ONE (11:51)
[2019-05-04 12:04] LABS: Glucose,Whole Blood 178 mg/dL (75-99)
--- NOTE | 2019-05-04 12:04 | P.CNPUL ---
History of Present Illness Consult date: 05/04/19 Requesting physician: Tish Adair Reason for consult: other (Pancytopenia and pneumonia, possible sepsis) Chief complaint: Weakness History of present illness: This is a 68-year-old female recently diagnosed with angioimmunoblastic T-cell lymphoma presented mostly with generalized lymphadenopathy and bone marrow involvement with one episode of tumor lysis syndrome. Her diagnosis was made by biopsy of a right sided supraclavicular lymph node. Patient was recently in the hospital, and she was treated for tumor lysis syndrome and pancytopenia. She received aggressive course of chemotherapy during her hospital stay, and she was discharged home on 04/30/2019. Patient presented to the ER yesterday, 3 days after discharge from the hospital mostly with complaints of weakness. She was also noting yellow discoloration. She had no nausea or vomiting, no abdominal pain, she had no cough no wheezing no fever no chills no hemoptysis, she was just feeling generally weak. Workup in the ER showed a WBC count of 0.4, hemoglobin 4.7, and her hemoglobin was 7.7 on 04/30. She was also noted to have low platelets at 22,000. Lactic acid was noted to be 2.3, total bilirubin was noted to be up to 6.5 from 4.1 few days ago, alkaline phosphatase of 58, and LDH of 584 Calcium was 7.5. Reticulocyte count of 0.2. Chest x-ray showed evidence of right sided pleural effusion, and right lower lobe atelectasis and/or consolidation. Patient was admitted to the intensive care unit, started empi rically on vancomycin and cefepime. Cultures are all pending. Fluids were given. And blood transfusion was ordered however it seems to be difficult to find compatible blood for this patient, and the process of blood transfusion is pending. Considering the patient was admitted to the ICU, I was asked to see her on consultation Review of Systems Constitutional: Weakness fatigue malaise Eyes: No diplopia, no blurred vision. Ears: No earache. Ears, nose, mouth and throat: No sore throat. No earache. No nasal discharge. Cardiovascular: No chest pain no palpitation. Respiratory: No cough no wheezing no shortness of breath Gastrointestinal: No nausea no vomiting no abdominal pain Genitourinary: No dysuria frequency urgency hematuria Musculoskeletal: Generalized weakness Integumentary: No rashes, no pruritus Neurological: No headache blurred vision or dizziness. Psychiatric: No symptoms of active depression. Endocrine: No heat or cold intolerance Past Medical History Past Medical History: Cancer, Diabetes Mellitus, Hyperlipidemia, Hypertension, Thyroid Disorder Additional Past Medical History / Comment(s): Pt states she was told 04/18/19 that she has lymphoma-no treatment plan yet, recent hands/legs/feet edema, 2009 R breast cancer with lumpectomy and radiation treatments, NIDDM type II, hypothyroid, diverticular disease History of Any Multi-Drug Resistant Organisms: None Reported Past Surgical History: Breast Surgery, Section, Hysterectomy Additional Past Surgical History / Comment(s): 04/12/19 R supraclavicular lymph node core biopsy, right breast lumpectomy, colonoscopy Past Anesthesia/Blood Transfusion Reactions: No Reported Reaction Past Psychological History: No Psychological Hx Reported Additional Psychological History / Comment(s): Pt resides with her spouse. She is independent. She states lately though, she has not been driving, her spouse has been doing the driving. Smoking Status: Never smoker Past Alcohol Use History: Rare Past Drug Use History: None Reported - Past Family History Father Family Medical History: Myocardial Infarction ([place]) Additional Family Medical History / Comment(s): [place] times 2-first [place] at the age of 35yrs and from 2nd [place] at the age of age 52 Mother Family Medical History: Cancer Additional Family Medical History / Comment(s): Mother of pancreatic cancer in her 70s. Brother(s) History Unknown: Yes Sister(s) Family Medical History: Cancer Daughter(s) Family Medical History: No Reported History Son(s) Family Medical History: No Reported History Medications and Allergies Home Medications Medication Instructions Recorded Confirmed Type amLODIPine BESYLATE/BENAZEPRIL 1 cap PO DAILY 10/09/13 05/03/19 History [Lotrel 5-40 mg Capsule] Levothyroxine Sodium [Levoxyl] 50 mcg PO DAILY 04/03/19 05/03/19 History Rosuvastatin Calcium [Crestor] 5 mg PO DAILY 04/03/19 05/03/19 History metFORMIN HCL [Glucophage] 500 mg PO BID 04/03/19 05/03/19 History Ibuprofen [Motrin] 800 mg PO TID PRN 04/19/19 05/03/19 History Venlafaxine HCl [Effexor] 75 mg PO DAILY 04/19/19 05/03/19 History Loratadine [Claritin] 10 mg PO DAILY 05/03/19 05/03/19 History Allergies Allergy/AdvReac Type Severity Reaction Status Date / Time Penicillins Allergy Unknown Rash/Hives Verified 05/03/19 18:03 Physical Exam Vitals: Vital Signs Temp Pulse Pulse Resp BP BP Pulse Ox 05/04/19 09:30 102 H 8 L 121/61 100 05/04/19 09:00 109 H 29 H 121/61 05/04/19 08:30 90 5 L 121/61 97 05/04/19 08:00 98.6 F 97 9 L 129/56 97 05/04/19 07:30 103 H 20 129/56 96 05/04/19 07:00 100 20 127/60 96 05/04/19 06:30 96 15 117/61 96 05/04/19 06:00 105 H 26 H 117/57 95 05/04/19 05:30 100 19 134/72 97 05/04/19 05:00 111 H 10 L 116/67 96 05/04/19 04:30 98 12 113/60 98 05/04/19 04:00 98.6 F 98 10 L 114/64 97 05/04/19 03:30 98 6 L 120/66 96 05/04/19 03:00 98 16 127/62 96 05/04/19 02:30 101 H 13 122/62 99 05/04/19 02:00 101 H 20 104/61 100 05/04/19 01:30 104 H 17 115/61 96 05/04/19 01:00 103 H 16 96/38 97 05/04/19 00:30 101 H 16 123/59 98 05/04/19 00:00 98.3 F 114 H 20 124/57 96 05/03/19 23:30 104 H 13 119/60 99 05/03/19 23:00 104 H 16 120/59 98 05/03/19 22:30 104 H 18 115/61 99 05/03/19 22:00 103 H 8 L 144/69 99 05/03/19 21:30 108 H 20 133/63 99 05/03/19 21:00 107 H 28 H 128/60 99 05/03/19 20:30 98.0 F 107 H 9 L 131/61 98 05/03/19 20:00 106 H 21 125/86 97 05/03/19 19:30 120 H 17 106/66 05/03/19 19:00 99.1 F 105 H 18 124/65 96 05/03/19 18:33 98.7 F 104 H 20 140/58 98 05/03/19 18:06 99.1 F 106 H 10 L 104/60 99 05/03/19 17:54 104 H 22 150/58 100 05/03/19 17:30 105 H 16 134/64 99 05/03/19 17:04 100 18 128/68 98 05/03/19 14:57 99.0 F 106 H 20 129/75 100 Intake and Output 05/03/19 05/04/19 05/04/19 22:59 06:59 14:59 Intake Total 944 1627 507 Output Total 50 Balance 944 1627 457 Intake: IV 464 787 507 Cefepime 2 gm In Sodium 100 100 Chloride 0.9% 100 ml @ 200 mls/hr IVPB Q8HR [facility] Rx#:[id number] Sodium Chloride 0.9% 1, 160 520 240 000 ml @ 80 mls/hr IV . [id number] [facility] Rx#:[id number] Vancomycin 1,750 mg In 304 167 167 Sodium Chloride 0.9% 500 ml 500 ml @ 167 mls/hr IVPB Q12H [facility] Rx#: [id number] Oral 480 840 Output: Urine 50 Other: Voiding Method Bedside Commode Bedside Commode Bedside Commode # Voids 1 1 0 # Bowel Movements 1 1 Weight 108.4 kg 108.3 kg General appearance: Revealed a 68-year-old female, frail looking, jaundice, in no distress. Head exam: Atraumatic, normocephalic. Eye exam: . PERRLA, EOMI, positive icterus.. ENT exam: Dry mucous membranes otherwise unremarkable. Neck exam: Positive right posterior cervical lymphadenopathy noted. Respiratory exam: Diminished breath sounds at the right base, minimal crackles at the right base, no rhonchi and no wheezes. Symmetrical chest expansion. Cardiovascular Exam: Normal S1 and S2, no S3 gallop, no murmur. GI/Abdominal exam: Soft nontender no megaly no rebound no guarding. Extremities exam: 1+ bipedal edema, good pulses bilaterally. Neurological exam: Alert oriented 3, no gross focal deficits. Psychiatric exam: Normal mood blunt affect normal mental status examination Skin exam: Jaundiced otherwise unremarkable. No rashes Results - Laboratory Findings CBC and BMP: 05/04/19 05:10 05/04/19 05:10 PT/INR, D-dimer PT 12.1 sec (9.0-12.0) H 05/03/19 15:33 INR 1.2 (<1.2) H 05/03/19 15:33 Abnormal lab findings: Abnormal Labs 05/03/19 05/03/19 05/03/19 15:33 15:33 15:33 WBC 0.4 L* RBC 1.48 L Hgb 4.7 L* D Hct 13.7 L* RDW 19.5 H Plt Count 22 L D Retic Count PT INR APTT Chloride BUN 27 H Glucose 171 H POC Glucose (mg/dL) Plasma Lactic Acid Carloz 2.7 H* Calcium 7.9 L Total Bilirubin 6.5 H Conjugated Bilirubin Unconjugated Bilirubin Delta Bilirubin Creatine Kinase <20 L Total Protein 4.7 L Albumin 2.4 L Ur Leukocyte Esterase Urine Bacteria Urine Mucus Crossmatch Reference Lab Result 05/03/19 05/03/19 05/03/19 15:33 17:08 17:50 WBC RBC Hgb Hct RDW Plt Count Retic Count PT 12.1 H INR 1.2 H APTT 31.4 H Chloride BUN Glucose POC Glucose (mg/dL) Plasma Lactic Acid Carloz Calcium Total Bilirubin Conjugated Bilirubin Unconjugated Bilirubin Delta Bilirubin Creatine Kinase Total Protein Albumin Ur Leukocyte Esterase Small H Urine Bacteria Occasional H Urine Mucus Rare H Crossmatch See Detail Reference Lab Result See [facility]K REF Reports A 05/03/19 05/03/19 05/03/19 18:43 20:59 21:00 WBC RBC Hgb Hct RDW Plt Count Retic Count PT INR APTT Chloride BUN Glucose POC Glucose (mg/dL) 147 H 171 H Plasma Lactic Acid Carloz 2.3 H* Calcium Total Bilirubin Conjugated Bilirubin Unconjugated Bilirubin Delta Bilirubin Creatine Kinase Total Protein Albumin Ur Leukocyte Esterase Urine Bacteria Urine Mucus Crossmatch Reference Lab Result 05/04/19 05/04/19 05/04/19 05:10 05:10 05:10 WBC 0.2 L* RBC 1.10 L Hgb 3.4 L* Hct 10.5 L* RDW 20.3 H Plt Count 15 L* Retic Count PT INR APTT Chloride 108 H BUN 30 H Glucose 159 H POC Glucose (mg/dL) Plasma Lactic Acid Carloz 2.6 H* Calcium 7.5 L Total Bilirubin Conjugated Bilirubin Unconjugated Bilirubin Delta Bilirubin Creatine Kinase Total Protein Albumin Ur Leukocyte Esterase Urine Bacteria Urine Mucus Crossmatch Reference Lab Result 05/04/19 05/04/19 05/04/19 05:10 05:10 07:07 WBC RBC Hgb Hct RDW Plt Count Retic Count 0.2 L PT INR APTT Chloride BUN Glucose POC Glucose (mg/dL) 178 H Plasma Lactic Acid Carloz Calcium Total Bilirubin 7.6 H Conjugated Bilirubin 0.5 H Unconjugated Bilirubin 5.4 H Delta Bilirubin 1.7 H Creatine Kinase Total Protein Albumin Ur Leukocyte Esterase Urine Bacteria Urine Mucus Crossmatch Reference Lab Result - Diagnostic Findings Chest x-ray: image reviewed (As noted in HPI.) Assessment and Plan Assessment: Impression: 1 pancytopenia, secondary to immunosuppression related to recent chemotherapy. 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 3 neutropenic sepsis, has the patient will be continued on empiric broad- spectrum antibiotics. 4 possible right lower lobe pneumonia with parapneumonic effusion, continue broad-spectrum antibiotics as ordered. Would not consider thoracentesis at this point specially with low platelets as they are. 5 history of mild component of tumor lysis syndrome, noted on her last admission/resolved 6 history of breast cancer and previous lumpectomy 7 multiple comorbidities including hypertension, hyperlipidemia, hypothyroidism, and type 2 diabetes. Recommendation: Transfused with at least 2 units of packed RBCs as soon as the blood becomes available. Continue antibiotics in the form of vancomycin and cefepime Continue Decadron patient is at 10 mg IV push every 6 hours. Continue IV fluids, patient was given 1 L of fluid bolus for slightly elevated lactic acid. Resume home meds, however hold statin medications because of her elevated bilirubin. Continue to monitor closely in the ICU. Prognosis is definitely guarded. We'll continue to follow with oncology and the admitting physician. Time with Patient: Greater than 30
--- NOTE | 2019-05-04 16:51 | P.CONS ---
History of Present Illness - Reason for Consult Consult date: 05/04/19 pancytopenia, s/p chemo for T-call lymphoma Requesting physician: Milton Singh - Chief Complaint jaundice - History of Present Illness Malignancy history: Mrs. Galvan is a very pleasant 68-year-old female patient of Dr. Gonzalez with a past medical history that includes a T1 cN0 right breast cancer diagnosed in February 2011, treated with lumpectomy, sentinel lymph node biopsy, radiation therapy, AI continued until November 2017. No disease recurrence. Patient noticed enlarging cervical lymph nodes in December 2018. She had a CBC at her PCP Dr. Gaffney's office which showed mild leukopenia, thrombocytopenia which was new. She had no other symptoms. She saw Dr. Gonzalez on 03/29. He examined her and ordered a CT CAP and US guided core biopsy of the right supraclavicular lymph node. CT showed abnormal lymph nodes throughout the abdomen and pelvis, including axilla, intra-abdominal, pelvic and superficial inguinal areas, enlarged submental lymph node, and splenomegaly. Biopsy of the right anterior cervical lymph node on 04/12, path was positive for a CD30 positive atypical lymphoid infiltrate, high proliferation index of 70-80%, the case was forwarded on to [facility] for subtype classification, final path returned agioimmunoblastic T-call lymphoma. She was admitted before she was able to get diagnosis for progressive jaundice and weakness. She was hemolysing, started on pulse dose dex and then received 1st cycle of EPOCH, dis charged Wednesday, with stable counts received GCSF on Tuesday 05/01. Patient was becoming progressively jaundiced which led her to bring her to the hospital. On admit patient was noted to have severely low CBC, hypotensive, severely symptomatic anemia. Patient is currently in the intensive care unit, she is alert and oriented, she has difficulty speaking more than one word due to severe anemia, hemoglobin 3.4 currently, her blood pressure and pulse remain stable at this time. Review of Systems 14 point review of systems is negative except as stated in HPI Past Medical History Past Medical History: Cancer, Diabetes Mellitus, Hyperlipidemia, Hypertension, Thyroid Disorder Additional Past Medical History / Comment(s): Pt states she was told 04/18/19 that she has lymphoma-no treatment plan yet, recent hands/legs/feet edema, 2009 R breast cancer with lumpectomy and radiation treatments, NIDDM type II, hypothyroid, diverticular disease History of Any Multi-Drug Resistant Organisms: None Reported Past Surgical History: Breast Surgery, Section, Hysterectomy Additional Past Surgical History / Comment(s): 04/12/19 R supraclavicular lymph node core biopsy, right breast lumpectomy, colonoscopy Past Anesthesia/Blood Transfusion Reactions: No Reported Reaction Past Psychological History: No Psychological Hx Reported Additional Psychological History / Comment(s): Pt resides with her spouse. She is independent. She states lately though, she has not been driving, her spouse has been doing the driving. Smoking Status: Never smoker Past Alcohol Use History: Rare Past Drug Use History: None Reported - Past Family History Father Family Medical History: Myocardial Infarction (OR) Additional Family Medical History / Comment(s): OR times 2-first OR at the age o f 35yrs and from 2nd OR at the age of age 52 Mother Family Medical History: Cancer Additional Family Medical History / Comment(s): Mother of pancreatic cancer in her 70s. Brother(s) History Unknown: Yes Sister(s) Family Medical History: Cancer Daughter(s) Family Medical History: No Reported History Son(s) Family Medical History: No Reported History Medications and Allergies Home Medications Medication Instructions Recorded Confirmed Type amLODIPine BESYLATE/BENAZEPRIL 1 cap PO DAILY 10/09/13 05/03/19 History [Lotrel 5-40 mg Capsule] Levothyroxine Sodium [Levoxyl] 50 mcg PO DAILY 04/03/19 05/03/19 History Rosuvastatin Calcium [Crestor] 5 mg PO DAILY 04/03/19 05/03/19 History metFORMIN HCL [Glucophage] 500 mg PO BID 04/03/19 05/03/19 History Ibuprofen [Motrin] 800 mg PO TID PRN 04/19/19 05/03/19 History Venlafaxine HCl [Effexor] 75 mg PO DAILY 04/19/19 05/03/19 History Loratadine [Claritin] 10 mg PO DAILY 05/03/19 05/03/19 History Allergies Allergy/AdvReac Type Severity Reaction Status Date / Time Penicillins Allergy Unknown Rash/Hives Verified 05/03/19 18:03 Physical Exam Vitals: Vital Signs Temp Pulse Pulse Resp BP BP Pulse Ox 05/04/19 16:19 98.2 F 96 14 118/64 05/04/19 15:33 98.2 F 96 14 112/61 05/04/19 15:30 96 0 L 112/61 95 05/04/19 15:00 97 2 L 111/61 96 05/04/19 14:44 98.2 F 98 14 111/61 05/04/19 14:34 98.2 F 97 16 111/61 05/04/19 14:32 98.2 F 97 14 114/61 05/04/19 14:30 98 24 114/61 95 05/04/19 14:00 98 3 L 96 05/04/19 13:30 98 6 L 107/61 96 05/04/19 13:21 98.3 F 100 16 05/04/19 13:00 98.1 F 100 3 L 108/56 96 05/04/19 12:51 98.2 F 101 H 15 107/61 05/04/19 12:41 98.1 F 101 H 16 108/56 05/04/19 12:30 103 H 21 100/55 96 05/04/19 12:29 98.8 F 104 H 16 100/55 96 05/04/19 12:00 98.8 F 101 H 106 H 16 103/49 96 05/04/19 11:30 95 16 103/49 97 05/04/19 11:00 98 21 97 05/04/19 10:30 96 24 112/64 99 05/04/19 10:00 100 9 L 121/61 05/04/19 09:30 102 H 8 L 121/61 100 05/04/19 09:00 109 H 29 H 121/61 05/04/19 08:30 90 5 L 121/61 97 05/04/19 08:00 98.6 F 97 9 L 129/56 97 05/04/19 07:30 103 H 20 129/56 96 05/04/19 07:00 100 20 127/60 96 05/04/19 06:30 96 15 117/61 96 05/04/19 06:00 105 H 26 H 117/57 95 05/04/19 05:30 100 19 134/72 97 05/04/19 05:00 111 H 10 L 116/67 96 05/04/19 04:30 98 12 113/60 98 05/04/19 04:00 98.6 F 98 10 L 114/64 97 05/04/19 03:30 98 6 L 120/66 96 05/04/19 03:00 98 16 127/62 96 05/04/19 02:30 101 H 13 122/62 99 05/04/19 02:00 101 H 20 104/61 100 05/04/19 01:30 104 H 17 115/61 96 05/04/19 01:00 103 H 16 96/38 97 05/04/19 00:30 101 H 16 123/59 98 05/04/19 00:00 98.3 F 114 H 20 124/57 96 05/03/19 23:30 104 H 13 119/60 99 05/03/19 23:00 104 H 16 120/59 98 05/03/19 22:30 104 H 18 115/61 99 05/03/19 22:00 103 H 8 L 144/69 99 05/03/19 21:30 108 H 20 133/63 99 05/03/19 21:00 107 H 28 H 128/60 99 05/03/19 20:30 98.0 F 107 H 9 L 131/61 98 05/03/19 20:00 106 H 21 125/86 97 05/03/19 19:30 120 H 17 106/66 05/03/19 19:00 99.1 F 105 H 18 124/65 96 05/03/19 18:33 98.7 F 104 H 20 140/58 98 05/03/19 18:06 99.1 F 106 H 10 L 104/60 99 05/03/19 17:54 104 H 22 150/58 100 05/03/19 17:30 105 H 16 134/64 99 05/03/19 17:04 100 18 128/68 98 Intake and Output 05/04/19 05/04/19 05/04/19 06:59 14:59 22:59 Intake Total 1627 3247 986 Output Total 160 Balance 1627 3087 986 Intake: IV 787 2261 Cefepime 2 gm In Sodium 100 150 Chloride 0.9% 100 ml @ 200 mls/hr IVPB Q8HR [facility] Rx#:[id number] Sodium Chloride 0.9% 1, 520 610 000 ml @ 80 mls/hr IV . [id number] [facility] Rx#:[id number] Sodium Chloride 0.9% 1, 1000 000 ml @ 999 mls/hr IV . Q1H1M [facility] Rx#:[id number] Vancomycin 1,750 mg In 167 501 Sodium Chloride 0.9% 500 ml 500 ml @ 167 mls/hr IVPB Q12H [facility] Rx#: [id number] Oral 840 360 360 Blood Product 626 626 Rc Irr As1 Unit 310 [id number] Rc Irr As1 Unit 0 310 [id number] Output: Urine 160 Other: Voiding Method Bedside Commode Bedside Commode # Voids 1 0 # Bowel Movements 1 Weight 108.3 kg - Constitutional General appearance: average body habitus, cooperative, mild distress - EENT Dry, pale/jaundiced mucus membranes Eyes: scleral icterus ENT: hearing grossly normal - Respiratory weak inspiratory effort Respiratory: bilateral: diminished - Cardiovascular Rhythm: regular Heart sounds: normal: S1, S2 Abnormal Heart Sounds: systolic murmur leg Peripheral Edema: bilateral: Trace - Gastrointestinal General gastrointestinal: no absent bowel sounds, decreased bowel sounds, no distended, no hepatomegaly, no hyperactive bowel sounds, no normal bowel sounds, no organomegaly, no rigid, no scaphoid, soft, no splenomegaly, no tenderness, no umbilical hernia, no ventral hernia - Integumentary Integumentary: jaundiced, pale - Musculoskeletal Musculoskeletal: generalized weakness - Psychiatric Psychiatric: A&O x's 3, appropriate affect, intact judgment & insight Results CBC & Chem 7: 05/04/19 05:10 05/04/19 05:10 Labs: Abnormal Lab Results - Last 24 Hours (Table) 05/03/19 05/03/19 05/03/19 Range/Units 17:08 17:50 18:43 WBC (3.8-10.6) k/uL RBC (3.80-5.40) m/uL Hgb (11.4-16.0) gm/dL Hct (34.0-46.0) % RDW (11.5-15.5) % Plt Count (150-450) k/uL Retic Count (0.5-2.0) % Chloride (98-107) mmol/L BUN (7-17) mg/dL Glucose (74-99) mg/dL POC Glucose (mg/dL) 147 H (75-99) mg/dL Plasma Lactic Acid Carloz (0.7-2.0) mmol/L Calcium (8.4-10.2) mg/dL Total Bilirubin (0.2-1.3) mg/dL Conjugated Bilirubin (0.0-0.3) mg/dL Unconjugated Bilirubin (0.0-1.1) mg/dL Delta Bilirubin (0.0-0.2) mg/dL Ur Leukocyte Esterase Small H (Negative) Urine Bacteria Occasional H (None) /hpf Urine Mucus Rare H (None) /hpf Crossmatch See Detail Reference Lab Result See [facility] REF Reports A 05/03/19 05/03/19 05/04/19 Range/Units 20:59 21:00 05:10 WBC 0.2 L* (3.8-10.6) k/uL RBC 1.10 L (3.80-5.40) m/uL Hgb 3.4 L* (11.4-16.0) gm/dL Hct 10.5 L* (34.0-46.0) % RDW 20.3 H (11.5-15.5) % Plt Count 15 L* (150-450) k/uL Retic Count (0.5-2.0) % Chloride (98-107) mmol/L BUN (7-17) mg/dL Glucose (74-99) mg/dL POC Glucose (mg/dL) 171 H (75-99) mg/dL Plasma Lactic Acid Carloz 2.3 H* (0.7-2.0) mmol/L Calcium (8.4-10.2) mg/dL Total Bilirubin (0.2-1.3) mg/dL Conjugated Bilirubin (0.0-0.3) mg/dL Unconjugated Bilirubin (0.0-1.1) mg/dL Delta Bilirubin (0.0-0.2) mg/dL Ur Leukocyte Esterase (Negative) Urine Bacteria (None) /hpf Urine Mucus (None) /hpf Crossmatch Reference Lab Result 05/04/19 05/04/19 05/04/19 Range/Units 05:10 05:10 05:10 WBC (3.8-10.6) k/uL RBC (3.80-5.40) m/uL Hgb (11.4-16.0) gm/dL Hct (34.0-46.0) % RDW (11.5-15.5) % Plt Count (150-450) k/uL Retic Count (0.5-2.0) % Chloride 108 H (98-107) mmol/L BUN 30 H (7-17) mg/dL Glucose 159 H (74-99) mg/dL POC Glucose (mg/dL) (75-99) mg/dL Plasma Lactic Acid Carloz 2.6 H* (0.7-2.0) mmol/L Calcium 7.5 L (8.4-10.2) mg/dL Total Bilirubin 7.6 H (0.2-1.3) mg/dL Conjugated Bilirubin 0.5 H (0.0-0.3) mg/dL Unconjugated Bilirubin 5.4 H (0.0-1.1) mg/dL Delta Bilirubin 1.7 H (0.0-0.2) mg/dL Ur Leukocyte Esterase (Negative) Urine Bacteria (None) /hpf Urine Mucus (None) /hpf Crossmatch Reference Lab Result 05/04/19 05/04/19 05/04/19 Range/Units 05:10 07:07 11:53 WBC (3.8-10.6) k/uL RBC (3.80-5.40) m/uL Hgb (11.4-16.0) gm/dL Hct (34.0-46.0) % RDW (11.5-15.5) % Plt Count (150-450) k/uL Retic Count 0.2 L (0.5-2.0) % Chloride (98-107) mmol/L BUN (7-17) mg/dL Glucose (74-99) mg/dL POC Glucose (mg/dL) 178 H 178 H (75-99) mg/dL Plasma Lactic Acid Carloz (0.7-2.0) mmol/L Calcium (8.4-10.2) mg/dL Total Bilirubin (0.2-1.3) mg/dL Conjugated Bilirubin (0.0-0.3) mg/dL Unconjugated Bilirubin (0.0-1.1) mg/dL Delta Bilirubin (0.0-0.2) mg/dL Ur Leukocyte Esterase (Negative) Urine Bacteria (None) /hpf Urine Mucus (None) /hpf Crossmatch Reference Lab Result Chest x-ray: report reviewed Assessment and Plan (1) Hemolytic anemia Narrative/Plan: Hemolysis work up ordered Pulse dose dex started. Pending transfusions with least incompatible PRBCs Current Visit: Yes Status: Acute Priority: High Code(s): D58.9 - HEREDITARY HEMOLYTIC ANEMIA, UNSPECIFIED SNOMED Code(s): 25054942 (2) Angioimmunoblastic T-cell lymphoma Narrative/Plan: S/P post 1st cycle of EPOCH, GCSF on 05/01 Current Visit: Yes Status: Acute Priority: High Code(s): C86.5 - ANGIOIMMUNOBLASTIC T-CELL LYMPHOMA SNOMED Code(s): 625726870 (3) Antineoplastic chemotherapy induced pancytopenia Narrative/Plan: PRBC least incompatible. Labs for hemolysis. Pulse dose steroids for hemolysis No GCSF, pt just had on 04/21. Platelets 15K today, transfuse if symptomatic or if 10K or less Current Visit: Yes Status: Acute Priority: High Code(s): D61.810 - ANTINEOPLASTIC CHEMOTHERAPY INDUCED PANCYTOPENIA; T45.1X5A - ADVERSE EFFECT OF ANTINEOPLASTIC AND IMMUNOSUP DRUGS, INIT SNOMED Code(s): 171962504766387 (4) Jaundice Narrative/Plan: Bilirubin and fractions elevated, otherwise normal LFTs, most suggestive of hemolysis. Further labs pending Started on steroids, labs daily, hydration Current Visit: Yes Status: Acute Priority: High Code(s): R17 - UNSPECIFIED JAUNDICE SNOMED Code(s): 86320937 (5) Generalized weakness Narrative/Plan: Pt is not able to move, speak, or swallow pills without distress due to severe anemia. Convert all meds that can be to IV Clear liquid diet Compression socks for DVT propylaxis Current Visit: Yes Status: Acute Priority: High Code(s): R53.1 - WEAKNESS SNOMED Code(s): 74574633
[2019-05-04 17:12] LABS: Glucose,Whole Blood 240 mg/dL (75-99)
[2019-05-04] MEDS ORDERED: MELATONIN 3 MG TABLET PO PRN (18:11)
--- NOTE | 2019-05-04 18:28 | P.HPIM ---
History of Present Illness H&P Date: 05/04/19 Chief Complaint: Jaundice weakness This is a 68-year-old female patient Dr Gaffney with a previous medical history significant for new diagnosed angioimmunoblastic T-cell lymphoma which was diagnosed 04/25/2019, along with tumor lysis syndrome, hypertension and hypertensive cardiovascular disease, hyperlipidemia, new diagnosis of diabetes mellitus type 2, history of breast cancer status post right lumpectomy with radiation therapy, diverticulosis, hypothyroidism, was started on chemotherapy Cytoxan, etoposide and prednisone. She was discharged to home 04/30/2019, with a total bili of 4.1 comes in to the emergency room with significant jaundice of 2 days' duration, increasing weakness, and severe anemia. Diminished appetite, increasing abdominal distention, and increasing dependent edema legs patient denies any palpitations or chest pain or pleurisy, no melena and hematochezia Emergency room, she has a WBC count of 0.2, hemoglobin 4.7, platelet count of 22 INR of 1.2, creatinine 0.5, total bilirubin of 6.5 from a previous number of 4.12 days ago.. Patient admitted to the ICU secondary to severe anemia and jaundice, this could be related to out to immune hemolytic anemia, oncology is on consult, Dr. Patrick is on consult for pulmonary medicine 2 units of packed red blood cells irradiated blood is currently being infused, possibility of right lower lobe pneumonia and parapneumonic effusion, started on IV antibiotic Review of Systems Constitutional: Reports as per HPI, Reports anorexia, Reports poor appetite Ears, nose, mouth and throat: Reports as per HPI, Denies ant. neck pain, Denies bleeding gums, Denies dental pain, Denies dysphagia, Denies epistaxis, Denies he adache, Denies hoarseness, Denies mouth pain, Denies nasal congestion, Denies nasal discharge, Denies neck fullness/pressure, Denies neck lump, Denies nose pain, Denies odynophagia, Denies post-nasal drip, Denies sinus pain, Denies sinus pressure, Denies swelling in mouth, Denies swelling in throat, Denies sore throat, Denies vertigo, Denies voice changes Cardiovascular: Reports as per HPI, Reports leg edema, Denies chest pain, Denies claudication, Denies decreased exercise tolerance, Denies dyspnea on exertion, Denies edema, Denies high blood pressure, Denies irregular heart beat, Denies lightheadedness, Denies orthopnea, Denies palpitations, Denies paroxysmal noctu rnal dyspnea, Denies phlebitis, Denies rapid heart beat, Denies shortness of breath, Denies syncope Respiratory: Reports as per HPI, Denies congestion, Denies cough, Denies cough with sputum, Denies dyspnea, Denies excessive sputum, Denies hemoptysis, Denies home oxygen, Denies pain, Denies pain on inspiration, Denies pleurisy, Denies respiratory infections, Denies sleep apnea, Denies snoring, Denies wheezing Gastrointestinal: Reports as per HPI, Reports bloating, Reports loss of appetite Genitourinary: Reports as per HPI, Denies abnormal vaginal bleeding, Denies decreased libido, Denies difficulty conceiving, Denies difficulty voiding, Denies dysmenorrhea, Denies dyspareunia, Denies dysuria, Denies flank pain, Addison es genital sores, Denies hematuria, Denies hot flashes, Denies incomplete emptying, Denies kidney stones, Denies menorrhagia, Denies mixed incontinence, Denies nocturia, Denies pelvic pain, Denies post void dribbling, Denies , Denies prolapse symptoms, Denies stress incontinence, Denies urge incontinence, Denies urgency, Denies urinary frequency, Denies vaginal discharge, Denies vaginal dryness, Denies vaginal itching, Denies vaginal odor Menstruation: Reports as per HPI Musculoskeletal: Reports as per HPI Integumentary: Reports as per HPI Neurological: Reports as per HPI Psychiatric: Reports as per HPI, Reports sleep disturbances Endocrine: Reports as per HPI Hematologic/Lymphatic: Reports as per HPI, Denies easy bleeding, Denies easy bruising, Denies lymphadenopathy, Denies lymphedema, Denies thrombophilia Allergic/Immunologic: Reports as per HPI, Denies allergic rhinitis, Denies anaphylaxis, Denies angioedema, Denies gluten intolerance, Denies persistent infections, Denies seasonal allergies, Denies urticaria, Denies wheezing Past Medical History Past Medical History: Cancer, Diabetes Mellitus, Hyperlipidemia, Hypertension, Thyroid Disorder Additional Past Medical History / Comment(s): Pt states she was told 04/18/19 that she has lymphoma-no treatment plan yet, recent hands/legs/feet edema, 2010 R breast cancer with lumpectomy and radiation treatments, NIDDM type II, hypothyroid, diverticular disease History of Any Multi-Drug Resistant Organisms: None Reported Past Surgical History: Breast Surgery, Section, Hysterectomy Additional Past Surgical History / Comment(s): 04/12/19 R supraclavicular lymph node core biopsy, right breast lumpectomy, colonoscopy Past Anesthesia/Blood Transfusion Reactions: No Reported Reaction Past Psychological History: No Psychological Hx Reported Additional Psychological History / Comment(s): Pt resides with her spouse. She is independent. She states lately though, she has not been driving, her spouse has been doing the driving. Smoking Status: Never smoker Past Alcohol Use History: Rare Past Drug Use History: None Reported - Past Family History Father Family Medical History: Myocardial Infarction ([place]) Additional Family Medical History / Comment(s): [place] times 2-first [place] at the age of 35yrs and from 2nd [place] at the age of age 52 Mother Family Medical History: Cancer Additional Family Medical History / Comment(s): Mother of pancreatic cancer in her 70s. Brother(s) History Unknown: Yes Sister(s) Family Medical History: Cancer Daughter(s) Family Medical History: No Reported History Son(s) Family Medical History: No Reported History Medications and Allergies Home Medications Medication Instructions Recorded Confirmed Type amLODIPine BESYLATE/BENAZEPRIL 1 cap PO DAILY 10/09/13 05/03/19 History [Lotrel 5-40 mg Capsule] Levothyroxine Sodium [Levoxyl] 50 mcg PO DAILY 04/03/19 05/03/19 History Rosuvastatin Calcium [Crestor] 5 mg PO DAILY 04/03/19 05/03/19 History metFORMIN HCL [Glucophage] 500 mg PO BID 04/03/19 05/03/19 History Ibuprofen [Motrin] 800 mg PO TID PRN 04/19/19 05/03/19 History Venlafaxine HCl [Effexor] 75 mg PO DAILY 04/19/19 05/03/19 History Loratadine [Claritin] 10 mg PO DAILY 05/03/19 05/03/19 History Allergies Allergy/AdvReac Type Severity Reaction Status Date / Time Penicillins Allergy Unknown Rash/Hives Verified 05/03/19 18:03 Physical Exam Vitals: Vital Signs Temp Pulse Pulse Resp BP BP Pulse Ox 05/04/19 09:30 102 H 8 L 121/61 100 05/04/19 09:00 109 H 29 H 121/61 05/04/19 08:30 90 5 L 121/61 97 05/04/19 08:00 98.6 F 97 9 L 129/56 97 05/04/19 07:30 103 H 20 129/56 96 05/04/19 07:00 100 20 127/60 96 05/04/19 06:30 96 15 117/61 96 05/04/19 06:00 105 H 26 H 117/57 95 05/04/19 05:30 100 19 134/72 97 05/04/19 05:00 111 H 10 L 116/67 96 05/04/19 04:30 98 12 113/60 98 05/04/19 04:00 98.6 F 98 10 L 114/64 97 05/04/19 03:30 98 6 L 120/66 96 05/04/19 03:00 98 16 127/62 96 05/04/19 02:30 101 H 13 122/62 99 05/04/19 02:00 101 H 20 104/61 100 05/04/19 01:30 104 H 17 115/61 96 05/04/19 01:00 103 H 16 96/38 97 05/04/19 00:30 101 H 16 123/59 98 05/04/19 00:00 98.3 F 114 H 20 124/57 96 05/03/19 23:30 104 H 13 119/60 99 05/03/19 23:00 104 H 16 120/59 98 05/03/19 22:30 104 H 18 115/61 99 05/03/19 22:00 103 H 8 L 144/69 99 05/03/19 21:30 108 H 20 133/63 99 05/03/19 21:00 107 H 28 H 128/60 99 05/03/19 20:30 98.0 F 107 H 9 L 131/61 98 05/03/19 20:00 106 H 21 125/86 97 05/03/19 19:30 120 H 17 106/66 05/03/19 19:00 99.1 F 105 H 18 124/65 96 05/03/19 18:33 98.7 F 104 H 20 140/58 98 05/03/19 18:06 99.1 F 106 H 10 L 104/60 99 05/03/19 17:54 104 H 22 150/58 100 05/03/19 17:30 105 H 16 134/64 99 05/03/19 17:04 100 18 128/68 98 05/03/19 14:57 99.0 F 106 H 20 129/75 100 Intake and Output 05/03/19 05/04/19 05/04/19 22:59 06:59 14:59 Intake Total 944 1627 507 Output Total 50 Balance 944 1627 457 Intake: IV 464 787 507 Cefepime 2 gm In Sodium 100 100 Chloride 0.9% 100 ml @ 200 mls/hr IVPB Q8HR ADITI Rx#:[id number] Sodium Chloride 0.9% 1, 160 520 240 000 ml @ 80 mls/hr IV . [id number] AD[facility]I Rx#:[id number] Vancomycin 1,750 mg In 304 167 167 Sodium Chloride 0.9% 500 ml 500 ml @ 167 mls/hr IVPB Q12H ADITI Rx#: [id number] Oral 480 840 Output: Urine 50 Other: Voiding Method Bedside Commode Bedside Commode Bedside Commode # Voids 1 1 0 # Bowel Movements 1 1 Weight 108.4 kg 108.3 kg - Constitutional General appearance: cooperative, no acute distress, obese - EENT Eyes: EOMI, PERRLA, dentition normal ENT: hard of hearing, normal oropharynx - Neck Neck: normal ROM - Respiratory Respiratory: bilateral: CTA, negative: diminished, dullness, rales - Cardiovascular Rhythm: regular Heart sounds: normal: S1, S2 Abnormal Heart Sounds: no systolic murmur, no diastolic murmur, no rub, no S3 Gallop, no S4 Gallop, no click, no other - Gastrointestinal General gastrointestinal: distended - Integumentary Integumentary: normal, normal turgor - Neurologic Neurologic: CNII-XII intact - Musculoskeletal Musculoskeletal: gait normal, strength equal bilaterally - Psychiatric Psychiatric: A&O x's 3, appropriate affect, intact judgment & insight Results CBC & Chem 7: 05/04/19 05:10 05/04/19 05:10 Labs: Abnormal Lab Results - Last 24 Hours (Table) 05/03/19 05/03/19 05/03/19 Range/Units 15:33 15:33 15:33 WBC 0.4 L* (3.8-10.6) k/uL RBC 1.48 L (3.80-5.40) m/uL Hgb 4.7 L* D (11.4-16.0) gm/dL Hct 13.7 L* (34.0-46.0) % RDW 19.5 H (11.5-15.5) % Plt Count 22 L D (150-450) k/uL Retic Count (0.5-2.0) % PT (9.0-12.0) sec INR (<1.2) APTT (22.0-30.0) sec Chloride (98-107) mmol/L BUN 27 H (7-17) mg/dL Glucose 171 H (74-99) mg/dL POC Glucose (mg/dL) (75-99) mg/dL Plasma Lactic Acid Carloz 2.7 H* (0.7-2.0) mmol/L Calcium 7.9 L (8.4-10.2) mg/dL Total Bilirubin 6.5 H (0.2-1.3) mg/dL Conjugated Bilirubin (0.0-0.3) mg/dL Unconjugated Bilirubin (0.0-1.1) mg/dL Delta Bilirubin (0.0-0.2) mg/dL Creatine Kinase <20 L (30-135) U/L Total Protein 4.7 L (6.3-8.2) g/dL Albumin 2.4 L (3.5-5.0) g/dL Ur Leukocyte Esterase (Negative) Urine Bacteria (None) /hpf Urine Mucus (None) /hpf Crossmatch Reference Lab Result 05/03/19 05/03/19 05/03/19 Range/Units 15:33 17:08 17:50 WBC (3.8-10.6) k/uL RBC (3.80-5.40) m/uL Hgb (11.4-16.0) gm/dL Hct (34.0-46.0) % RDW (11.5-15.5) % Plt Count (150-450) k/uL Retic Count (0.5-2.0) % PT 12.1 H (9.0-12.0) sec INR 1.2 H (<1.2) APTT 31.4 H (22.0-30.0) sec Chloride (98-107) mmol/L BUN (7-17) mg/dL Glucose (74-99) mg/dL POC Glucose (mg/dL) (75-99) mg/dL Plasma Lactic Acid Carloz (0.7-2.0) mmol/L Calcium (8.4-10.2) mg/dL Total Bilirubin (0.2-1.3) mg/dL Conjugated Bilirubin (0.0-0.3) mg/dL Unconjugated Bilirubin (0.0-1.1) mg/dL Delta Bilirubin (0.0-0.2) mg/dL Creatine Kinase (30-135) U/L Total Protein (6.3-8.2) g/dL Albumin (3.5-5.0) g/dL Ur Leukocyte Esterase Small H (Negative) Urine Bacteria Occasional H (None) /hpf Urine Mucus Rare H (None) /hpf Crossmatch See Detail Reference Lab Result See [facility]K REF Reports A 05/03/19 05/03/19 05/03/19 Range/Units 18:43 20:59 21:00 WBC (3.8-10.6) k/uL RBC (3.80-5.40) m/uL Hgb (11.4-16.0) gm/dL Hct (34.0-46.0) % RDW (11.5-15.5) % Plt Count (150-450) k/uL Retic Count (0.5-2.0) % PT (9.0-12.0) sec INR (<1.2) APTT (22.0-30.0) sec Chloride (98-107) mmol/L BUN (7-17) mg/dL Glucose (74-99) mg/dL POC Glucose (mg/dL) 147 H 171 H (75-99) mg/dL Plasma Lactic Acid Carloz 2.3 H* (0.7-2.0) mmol/L Calcium (8.4-10.2) mg/dL Total Bilirubin (0.2-1.3) mg/dL Conjugated Bilirubin (0.0-0.3) mg/dL Unconjugated Bilirubin (0.0-1.1) mg/dL Delta Bilirubin (0.0-0.2) mg/dL Creatine Kinase (30-135) U/L Total Protein (6.3-8.2) g/dL Albumin (3.5-5.0) g/dL Ur Leukocyte Esterase (Negative) Urine Bacteria (None) /hpf Urine Mucus (None) /hpf Crossmatch Reference Lab Result 05/04/19 05/04/19 05/04/19 Range/Units 05:10 05:10 05:10 WBC 0.2 L* (3.8-10.6) k/uL RBC 1.10 L (3.80-5.40) m/uL Hgb 3.4 L* (11.4-16.0) gm/dL Hct 10.5 L* (34.0-46.0) % RDW 20.3 H (11.5-15.5) % Plt Count 15 L* (150-450) k/uL Retic Count (0.5-2.0) % PT (9.0-12.0) sec INR (<1.2) APTT (22.0-30.0) sec Chloride 108 H (98-107) mmol/L BUN 30 H (7-17) mg/dL Glucose 159 H (74-99) mg/dL POC Glucose (mg/dL) (75-99) mg/dL Plasma Lactic Acid Carloz 2.6 H* (0.7-2.0) mmol/L Calcium 7.5 L (8.4-10.2) mg/dL Total Bilirubin (0.2-1.3) mg/dL Conjugated Bilirubin (0.0-0.3) mg/dL Unconjugated Bilirubin (0.0-1.1) mg/dL Delta Bilirubin (0.0-0.2) mg/dL Creatine Kinase (30-135) U/L Total Protein (6.3-8.2) g/dL Albumin (3.5-5.0) g/dL Ur Leukocyte Esterase (Negative) Urine Bacteria (None) /hpf Urine Mucus (None) /hpf Crossmatch Reference Lab Result 05/04/19 05/04/19 05/04/19 Range/Units 05:10 05:10 07:07 WBC (3.8-10.6) k/uL RBC (3.80-5.40) m/uL Hgb (11.4-16.0) gm/dL Hct (34.0-46.0) % RDW (11.5-15.5) % Plt Count (150-450) k/uL Retic Count 0.2 L (0.5-2.0) % PT (9.0-12.0) sec INR (<1.2) APTT (22.0-30.0) sec Chloride (98-107) mmol/L BUN (7-17) mg/dL Glucose (74-99) mg/dL POC Glucose (mg/dL) 178 H (75-99) mg/dL Plasma Lactic Acid Carloz (0.7-2.0) mmol/L Calcium (8.4-10.2) mg/dL Total Bilirubin 7.6 H (0.2-1.3) mg/dL Conjugated Bilirubin 0.5 H (0.0-0.3) mg/dL Unconjugated Bilirubin 5.4 H (0.0-1.1) mg/dL Delta Bilirubin 1.7 H (0.0-0.2) mg/dL Creatine Kinase (30-135) U/L Total Protein (6.3-8.2) g/dL Albumin (3.5-5.0) g/dL Ur Leukocyte Esterase (Negative) Urine Bacteria (None) /hpf Urine Mucus (None) /hpf Crossmatch Reference Lab Result Laboratory Results WBC 0.2 k/uL (3.8-10.6) L* 05/04/19 05:10 RBC 1.10 m/uL (3.80-5.40) L 05/04/19 05:10 Hgb 3.4 gm/dL (11.4-16.0) L* 05/04/19 05:10 Hct 10.5 % (34.0-46.0) L* 05/04/19 05:10 MCV 95.3 fL (80.0-100.0) 05/04/19 05:10 MCH 31.3 pg (25.0-35.0) 05/04/19 05:10 MCHC 32.8 g/dL (31.0-37.0) 05/04/19 05:10 RDW 20.3 % (11.5-15.5) H 05/04/19 05:10 Plt Count 15 k/uL (150-450) L* 05/04/19 05:10 Neutrophils # SKIN FORMER 05/04/19 05:10 Differential Comment 05/04/19 05:10 Manual Slide Review Performed 05/04/19 05:10 Hypochromasia Slight 05/04/19 05:10 Anisocytosis Moderate 05/04/19 05:10 Anisocytosis (manual) Present 05/04/19 05:10 Macrocytosis Slight 05/04/19 05:10 Rouleaux Present 05/04/19 05:10 Retic Count 0.2 % (0.5-2.0) L 05/04/19 05:10 PT 12.1 sec (9.0-12.0) H 05/03/19 15:33 INR 1.2 (<1.2) H 05/03/19 15:33 APTT 31.4 sec (22.0-30.0) H 05/03/19 15:33 Sodium 137 mmol/L (137-145) 05/04/19 05:10 Potassium 4.2 mmol/L (3.5-5.1) 05/04/19 05:10 Chloride 108 mmol/L (98-107) H 05/04/19 05:10 Carbon Dioxide 24 mmol/L (22-30) 05/04/19 05:10 Anion Gap 5 mmol/L 05/04/19 05:10 BUN 30 mg/dL (7-17) H 05/04/19 05:10 Creatinine 0.53 mg/dL (0.52-1.04) 05/04/19 05:10 Est GFR (CKD-EPI)AfAm >90 (>60 ml/min/1.73 sqM) 05/04/19 05:10 Est GFR (CKD-EPI)NonAf >90 (>60 ml/min/1.73 sqM) 05/04/19 05:10 Glucose 159 mg/dL (74-99) H 05/04/19 05:10 POC Glucose (mg/dL) 240 mg/dL (75-99) H 05/04/19 17:00 POC Glu Guest Relations Coordinator ID Zoila Berry 05/04/19 17:00 Lactic Ac Sepsis Rflx Y 05/04/19 06:26 Plasma Lactic Acid Carloz 2.6 mmol/L (0.7-2.0) H* 05/04/19 05:10 Calcium 7.5 mg/dL (8.4-10.2) L 05/04/19 05:10 Magnesium 1.9 mg/dL (1.6-2.3) 05/03/19 15:33 Total Bilirubin 7.6 mg/dL (0.2-1.3) H 05/04/19 05:10 Conjugated Bilirubin 0.5 mg/dL (0.0-0.3) H 05/04/19 05:10 Unconjugated Bilirubin 5.4 mg/dL (0.0-1.1) H 05/04/19 05:10 Delta Bilirubin 1.7 mg/dL (0.0-0.2) H 05/04/19 05:10 AST 28 U/L (14-36) 05/03/19 15:33 ALT 31 U/L (4-34) 05/03/19 15:33 Alkaline Phosphatase 58 U/L (38-126) 05/03/19 15:33 Lactate Dehydrogenase 584 U/L (313-618) 05/04/19 05:10 Creatine Kinase <20 U/L (30-135) L 05/03/19 15:33 Troponin I 0.027 ng/mL (0.000-0.034) 05/03/19 15:33 NT-Pro-B Natriuret Pep 382 pg/mL 05/03/19 15:33 Total Protein 4.7 g/dL (6.3-8.2) L 05/03/19 15:33 Albumin 2.4 g/dL (3.5-5.0) L 05/03/19 15:33 Urine Color Light [place] 05/03/19 17:50 Urine Appearance Clear (Clear) 05/03/19 17:50 Urine pH 5.5 (5.0-8.0) 05/03/19 17:50 Ur Specific [place] 1.016 (1.001-1.035) 05/03/19 17:50 Urine Protein Negative (Negative) 05/03/19 17:50 Urine Glucose (UA) Negative (Negative) 05/03/19 17:50 Urine Ketones Negative (Negative) 05/03/19 17:50 Urine Blood Negative (Negative) 05/03/19 17:50 Urine Nitrite Negative (Negative) 05/03/19 17:50 Urine Bilirubin Negative (Negative) 05/03/19 17:50 Urine Urobilinogen 8.0 mg/dL (<2.0) 05/03/19 17:50 Ur Leukocyte Esterase Small (Negative) H 05/03/19 17:50 Urine RBC 1 /hpf (0-5) 05/03/19 17:50 Urine WBC 2 /hpf (0-5) 05/03/19 17:50 Ur Squamous Epith Cells 1 /hpf (0-4) 05/03/19 17:50 Urine Bacteria Occasional /hpf (None) H 05/03/19 17:50 Urine Mucus Rare /hpf (None) H 05/03/19 17:50 Blood Type A Positive 05/03/19 17:08 Blood Type Recheck A Pos 05/03/19 17:08 Bld Type Recheck Status No 05/03/19 17:08 Antibody Screen POSITIVE 05/03/19 17:08 Antibody Identification Anti-D Anti-E Warm Auto Antibody 05/03/19 17:08 Antibody Identification Anti-D Anti-E Warm Auto Antibody 05/03/19 17:08 Antibody Identification Anti-D Anti-E Warm Auto Antibody 05/03/19 17:08 Direct Antiglob Test Positive 05/03/19 17:08 Crossmatch See Detail 05/03/19 17:08 Blood Bank Comment Not Reportable 05/03/19 17:08 Reference Lab Result See BBK REF Reports A 05/03/19 17:08 Spec Expiration Date 05/06/2019230705/03/19 17:08 Thrombosis Risk Factor Assmnt - DVT/VTE Prophylaxis DVT/VTE Prophylaxis: Contraindicated - See note - Choose All That Apply Each Factor Represents 1 point: Obesity (BMI >25), Swollen legs (current) Each Risk Factor Represents 2 Points: Age 61-74 years, Malignancy Thrombosis Risk Factor Assessment Total Risk Factor Score: 6 Thrombosis Risk Factor Assessment Level: High Risk Assessment and Plan Plan: 1. Severe pancytopenia, recent chemotherapy for T-cell lymphoma with hemolytic anemia, severe jaundice, 2 units packed red blood cell, irradiated, ICU management, oncology is following, pulmonary following 2 Angioimmunoblastic T-cell lymphoma) T-cell lymphoma CD30 (final pathologic report with [facility]) due to her malignancy. Oncology consult on chemotherapy and plan for bone marrow transplant in future, chemotherapy initiated with etoposide, doxorubicin, vincristine emanuel 2and cyclophosphamide to be initiated on April 29await hematology oncology input. pathology suggestive angioimmunoblastic T-cell lymphoma started on dexamethasone 10 mg every 6 hours 3. Severe jaundice, bilirubin fractionation, suspect hemolytic anemia might need reconsult GI at this time, if worse, hepatitis viral screening negative oncology has been consulted avoid transfusion with incompatible packed red blood cells, dexamethasone started 4. Anasarca, with abdominal distention, possible ascites, worsening edema, IV Lasix 20 mg every 24 hours, there might be some for titration the future, blood pressure is marginally on the low side, start protein supplementation with diet, abdominal ultrasound to evaluate for ascites 5 Gram-negative pneumonia possibility, patient is on cefepime, vancomycin pharmacy to dose, Dr. Byrd pulmonary medicine 6. Tumor lysis syndrome hx. Oncology is following. Patient is status post Elitek. 7. Diabetes mellitus type 2, uncontrolled with hyperglycemia secondary to steroids. Continue NovoLog scale and increase Levemir to 12 units BID 8. Hyperlipidemia. Discontinue Crestor for now. Secondary to severe jaundice 9. Hypothyroidism. Continue Synthroid increased to 75 g orally once every day. 10. Diverticulosis. Colonoscopy is up-to-date. 11. Recurrent Depression. Currently on Effexor XR 75 mg orally once every day. 12. DVT prophylaxis. Bilateral knee-high THA hose. 13. GI prophylaxis. Protonix 40 mg IV push every 24 hours. 5 Hypertension and hypertensive cardiovascular disease stablecan be started on amlodipine 5 mg daily. 16. Hepatocellular disease. Ultrasound of the abdomen as above. . Hepatitis panel neg Code status: full code.
[2019-05-04] MEDS: FUROSEMIDE 10 MG/ML 2 ML VIAL IV SCH (18:33)
[2019-05-04 18:57] LABS: Anisocytosis Slight; Hypochromasia Slight; MCH 31.5 pg (25.0-35.0); MCHC 34.3 g/dL (31.0-37.0); MCV 91.9 fL (80.0-100.0); Mean Platelet Volume 11.5; RBC 1.54 m/uL (3.80-5.40); RDW 18.5 % (11.5-15.5)
[2019-05-04 19:06] LABS: HCT 14.1 % (34.0-46.0); HGB 4.8 gm/dL (11.4-16.0); WBC 0.1 k/uL (3.8-10.6)
[2019-05-04 19:07] LABS: Platelet Count 12 k/uL (150-450)
[2019-05-04 21:12] LABS: Glucose,Whole Blood 245 mg/dL (75-99)
[2019-05-04 23:14] LABS: % Iron Saturation 84.89 (12.00-45.00)
[2019-05-04 23:41] LABS: Ferritin 910.7 ng/mL (10.0-291.0)
[2019-05-05] MEDS: CEFEPIME 2 GM in SODIUM CHLORIDE 0.9% 100 ML IVPB SCH ×3 (01:14→15:44)
[2019-05-05] MEDS: DEXAMETHASONE SOD PHOS (MDV) 100 MG/10 ML VIAL IVP SCH ×4 (01:14→17:28)
[2019-05-05 05:59] LABS: Anisocytosis Slight; MCH 30.7 pg (25.0-35.0); MCHC 34.1 g/dL (31.0-37.0); Mean Platelet Volume 10.6; Poikilocytosis Slight; RBC 2.01 m/uL (3.80-5.40); RDW 17.1 % (11.5-15.5)
[2019-05-05 06:19] LABS: ALT 29 U/L (4-34); AST 25 U/L (14-36); African American GFR (CKD) >90 (>60 ml/min/1.73 sqM); Albumin 2.4 g/dL (3.5-5.0); Alkaline Phosphatase 49 U/L (38-126); Anion Gap 7 mmol/L; Blood Urea Nitrogen 37 mg/dL (7-17); Calcium 7.4 mg/dL (8.4-10.2); Carbon Dioxide 20 mmol/L (22-30); Chloride 111 mmol/L (98-107); Glucose 224 mg/dL (74-99); HGB 6.2 gm/dL (11.4-16.0); Non-African American GFR(CKD) >90 (>60 ml/min/1.73 sqM); Potassium 4.7 mmol/L (3.5-5.1); Sodium 138 mmol/L (137-145); Total Bilirubin 7.1 mg/dL (0.2-1.3); Total Protein 4.8 g/dL (6.3-8.2); WBC 0.1 k/uL (3.8-10.6)
[2019-05-05 06:20] LABS: HCT 18.1 % (34.0-46.0); Platelet Count 14 k/uL (150-450)
[2019-05-05] MEDS: LEVOTHYROXINE 50 MCG TAB PO SCH (06:21)
[2019-05-05 07:03] LABS: Target Cells Present
[2019-05-05] MEDS: INSULIN ASPART (NovoLOG) 100 UNIT/ML VIAL SQ SCH ×3 (07:24→17:21)
[2019-05-05] MEDS: metFORMIN 500 MG TAB PO SCH ×2 (07:24→17:21)
[2019-05-05 07:33] LABS: Glucose,Whole Blood 238 mg/dL (75-99)
--- NOTE | 2019-05-05 07:56 | US ---
EXAMINATION TYPE: US abdomen limited DATE OF EXAM: 05/05/2019 COMPARISON: Complete abdominal ultrasound 11 days ago. CLINICAL HISTORY: elevated liver function test. Ascites check Small amount of ascites right and left flank, largest pocket within RLQ IMPRESSION: Increased ascites from prior ultrasound with moderate to large-sized pocket right lower quadrant noted on current study.
[2019-05-05] MEDS: VANCOMYCIN 1,750 MG in SODIUM CHLORIDE 0.9% 500 ML 500 ML IVPB SCH ×2 (08:30→20:19)
--- NOTE | 2019-05-05 08:32 | XR ---
EXAMINATION TYPE: XR chest 1V portable DATE OF EXAM: 05/05/2019 COMPARISON: Chest x-ray 05/03/2019 HISTORY: Pneumonia, abnormal chest x-ray TECHNIQUE: Single frontal view of the chest is obtained. FINDINGS: Findings are similar, right hemidiaphragm and heart border are obscured, there is blunting of the right costophrenic angle. Heart remains enlarged. Central venous catheter is stable. No evide nt pneumothorax. There are overlying cardiac leads. IMPRESSION: Correlate for right lower lobe pneumonia and associated effusion versus atelectasis. Car diomegaly.
[2019-05-05] MEDS: VENLAFAXINE HCL 75 MG TAB PO SCH (08:36)
[2019-05-05] MEDS: FUROSEMIDE 10 MG/ML 2 ML VIAL IV SCH (08:38)
[2019-05-05] MEDS: PANTOPRAZOLE 40 MG/10 ML VIAL IV SCH (08:38)
--- NOTE | 2019-05-05 10:47 | P.PN ---
Subjective Progress Note Date: 05/05/19 Principal diagnosis: Chemotherapy-induced pancytopenia and acute hemolytic anemia This is a 68-year-old female recently diagnosed with angioimmunoblastic T-cell lymphoma presented mostly with generalized lymphadenopathy and bone marrow involvement with one episode of tumor lysis syndrome. Her diagnosis was made by biopsy of a right sided supraclavicular lymph node. Patient was recently in the hospital, and she was treated for tumor lysis syndrome and pancytopenia. She received aggressive course of chemotherapy during her hospital stay, and she was discharged home on 04/30/2019. Patient presented to the ER yesterday, 3 days after discharge from the hospital mostly with complaints of weakness. She was also noting yellow discoloration. She had no nausea or vomiting, no abdominal pain, she had no cough no wheezing no fever no chills no hemoptysis, she was just feeling generally weak. Workup in the ER showed a WBC count of 0.4, hemoglobin 4.7, and her hemoglobin was 7.7 on 04/30. She was also noted to have low platelets at 22,000. Lactic acid was noted to be 2.3, total bilirubin was noted to be up to 6.5 from 4.1 few days ago, alkaline phosphatase of 58, and LDH of 584 Calcium was 7.5. Reticulocyte count of 0.2. Chest x-ray showed evidence of right sided pleural effusion, and right lower lobe atelectasis and/or consolidation. Patient was admitted to the intensive care unit, started empirically on vancomycin and cefepime. Cultures are all pending. Fluids were given. And blood transfusion was ordered however it seems to be difficult to find compatible blood for this patient, and the process of blood transfusion is pending. Considering the patient was admitted to the ICU, I was asked to see her on consultation Reevaluated today on 05/05/2019, patient remains in the intensive care units. Hemodynamically stable, on room air, denies any shortness of breath, no cough no wheezing and no chest pain. Patient is sitting at a bedside chair, seems to be quite comfortable. She received so far a total of 5 units of packed RBCs for her profound anemia which was felt to be hemolytic in nature. Hemoglobin today is 6.2. Platelets remained low at 14,000. WBC count is 0.1. Basic metabolic profile is normal. Chest x-ray showed slight improvement in her right pleural effusion and right lower lobe atelectasis/infiltrate. Ultrasound of the abdomen showed moderate ascites. Patient remains on diuretics, and the dose was increased to Lasix 20 mg every 12 hours. Blood cultures remain negative so far from admission. Objective - Vital Signs Vital signs: Vital Signs Temp 98.7 F 05/05/19 08:00 Pulse 95 05/05/19 10:00 Resp 18 05/05/19 10:00 BP 119/65 05/05/19 10:00 Pulse Ox 95 05/05/19 10:00 Intake & Output 05/04/19 05/05/19 05/05/19 18:59 06:59 18:59 Intake Total 4803 1740 320 Output Total 160 1025 800 Balance 4643 715 -480 Weight 111.5 kg Intake: IV 2471 1120 200 Cefepime 2 gm In Sodium 150 100 Chloride 0.9% 100 ml @ 200 mls/hr IVPB Q8HR [facility] Rx#:[id number] Sodium Chloride 0.9% 1, 770 520 50 000 ml @ 25 mls/hr IV . Q24H [facility] Rx#:[id number] Sodium Chloride 0.9% 1, 1000 000 ml @ 999 mls/hr IV . Q1H1M [facility] Rx#:[id number] Vancomycin 1,750 mg In 551 500 150 Sodium Chloride 0.9% 500 ml 500 ml @ 167 mls/hr IVPB Q12H [facility] Rx#: [id number] Oral 1080 120 Blood Product 1252 620 Rc Irr As1 Unit 310 [id number] Rc Irr As1 Unit 310 [id number] Rc Irr As1 Unit 310 [id number] Rc Irr As1 Unit 310 [id number] Output: Urine 160 1025 800 Other: Voiding Method Bedside Commode Bedside Commode # Voids 1 - Exam General appearance: Revealed a 68-year-old female, on room air, in no distress. Pleasant. Head exam: Atraumatic, normocephalic. Eye exam: . PERRLA, EOMI, positive icterus.. ENT exam: Moist mucous membranes otherwise unremarkable. Neck exam: Positive right posterior cervical lymphadenopathy noted. Respiratory exam: Diminished breath sounds at the right base, no crackles or rhonchi or wheezes. Cardiovascular Exam: Normal S1 and S2, no S3 gallop, no murmur. GI/Abdominal exam: Soft nontender no megaly no rebound no guarding. Suspect ascites. Extremities exam: 2+ bipedal edema, good pulses bilaterally. Neurological exam: Alert oriented 3, no gross focal deficits. Psychiatric exam: Normal mood blunt affect normal mental status examination Skin exam: Jaundiced otherwise unremarkable. No rashes - Labs CBC & Chem 7: 05/05/19 05:25 05/05/19 05:25 Labs: Abnormal Lab Results - Last 24 Hours (Table) 05/03/19 05/03/19 05/04/19 Range/Units 15:33 17:08 11:53 WBC (3.8-10.6) k/uL RBC (3.80-5.40) m/uL Hgb (11.4-16.0) gm/dL Hct (34.0-46.0) % RDW (11.5-15.5) % Plt Count (150-450) k/uL Chloride (98-107) mmol/L Carbon Dioxide (22-30) mmol/L BUN (7-17) mg/dL Glucose (74-99) mg/dL POC Glucose (mg/dL) 178 H (75-99) mg/dL Calcium (8.4-10.2) mg/dL Iron 191 H (50-170) ug/dL TIBC 225 L (228-460) ug/dL % Saturation 84.89 H (12.00-45.00) Ferritin 910.7 H (10.0-291.0) ng/mL Total Bilirubin (0.2-1.3) mg/dL Total Protein (6.3-8.2) g/dL Albumin (3.5-5.0) g/dL Crossmatch See Detail Reference Lab Result See BBK REF Reports A 05/04/19 05/04/19 05/04/19 Range/Units 17:00 18:46 21:00 WBC 0.1 L* (3.8-10.6) k/uL RBC 1.54 L (3.80-5.40) m/uL Hgb 4.8 L* (11.4-16.0) gm/dL Hct 14.1 L* (34.0-46.0) % RDW 18.5 H (11.5-15.5) % Plt Count 12 L* (150-450) k/uL Chloride (98-107) mmol/L Carbon Dioxide (22-30) mmol/L BUN (7-17) mg/dL Glucose (74-99) mg/dL POC Glucose (mg/dL) 240 H 245 H (75-99) mg/dL Calcium (8.4-10.2) mg/dL Iron (50-170) ug/dL TIBC (228-460) ug/dL % Saturation (12.00-45.00) Ferritin (10.0-291.0) ng/mL Total Bilirubin (0.2-1.3) mg/dL Total Protein (6.3-8.2) g/dL Albumin (3.5-5.0) g/dL Crossmatch Reference Lab Result 05/05/19 05/05/19 05/05/19 Range/Units 05:25 05:25 07:21 WBC 0.1 L* (3.8-10.6) k/uL RBC 2.01 L (3.80-5.40) m/uL Hgb 6.2 L* (11.4-16.0) gm/dL Hct 18.1 L* (34.0-46.0) % RDW 17.1 H (11.5-15.5) % Plt Count 14 L* (150-450) k/uL Chloride 111 H (98-107) mmol/L Carbon Dioxide 20 L (22-30) mmol/L BUN 37 H (7-17) mg/dL Glucose 224 H (74-99) mg/dL POC Glucose (mg/dL) 238 H (75-99) mg/dL Calcium 7.4 L (8.4-10.2) mg/dL Iron (50-170) ug/dL TIBC (228-460) ug/dL % Saturation (12.00-45.00) Ferritin (10.0-291.0) ng/mL Total Bilirubin 7.1 H (0.2-1.3) mg/dL Total Protein 4.8 L (6.3-8.2) g/dL Albumin 2.4 L (3.5-5.0) g/dL Crossmatch Reference Lab Result Microbiology - Last 24 Hours (Table) 05/03/19 19:08 Blood Culture - Preliminary Blood No Growth after 24 hours 05/03/19 19:08 Blood Culture - Preliminary Blood No Growth after 24 hours Assessment and Plan Assessment: Impression: 1 chemotherapy induced pancytopenia, 2 recurrent anemia, acute hemolytic in nature unless for otherwise. 3 neutropenic sepsis, has the patient will be continued on empiric broad- spectrum antibiotics. 4 possible right lower lobe pneumonia with parapneumonic effusion, continue broad-spectrum antibiotics as ordered. Improving based on the chest x-ray today compared to yesterday. 5 history of mild component of tumor lysis syndrome, noted on her last admission/resolved 6 history of breast cancer and previous lumpectomy 7 multiple comorbidities including hypertension, hyperlipidemia, hypothyroidism, and type 2 diabetes. Recommendation: Continue to monitor hemoglobin, and transfuse accordingly, try to keep hemoglobin close to 7. We will have some blood on hold since it is a long process to get blood available for this patient. Hence we'll keep 4 units available for future transfusion. Continue antibiotics in the form of vancomycin and cefepime Continue Decadron patient is at 10 mg IV push every 6 hours. Cut down IV fluids and continue Lasix 20 mg IV push every 12 hours. Resume home meds, however hold statin medications because of her elevated bilirubin. Continue to monitor closely in the ICU. Prognosis is definitely guarded. We'll continue to follow with oncology and the admitting physician. Time with Patient: Less than 30
[2019-05-05] MEDS: LISINOPRIL 20 MG TAB PO SCH (11:42)
[2019-05-05] MEDS: amLODIPine 5 MG TAB PO SCH (11:42)
[2019-05-05 12:16] LABS: Glucose,Whole Blood 265 mg/dL (75-99)
--- NOTE | 2019-05-05 13:51 | P.PN ---
Subjective Progress Note Date: 05/05/19 Principal diagnosis: Hemolysis, severe pancytopenia secondary to treatment and disease In f/u today pt is sitting in chair eating her lunch, breathing is easier at rest, abd is bloated, no nausea or vomiting Objective - Vital Signs Vital signs: Vital Signs Temp 97.8 F 05/05/19 13:26 Pulse 93 05/05/19 13:26 Resp 19 05/05/19 13:26 BP 111/59 05/05/19 13:26 Pulse Ox 96 05/05/19 13:26 Intake & Output 05/04/19 05/05/19 05/05/19 18:59 06:59 18:59 Intake Total 4803 1740 345 Output Total 160 1025 1300 Balance 4643 715 -955 Weight 111.5 kg Intake: IV 2471 1120 225 Cefepime 2 gm In Sodium 150 100 Chloride 0.9% 100 ml @ 200 mls/hr IVPB Q8HR [facility] Rx#:[id number] Sodium Chloride 0.9% 1, 770 520 75 000 ml @ 25 mls/hr IV . Q24H [facility] Rx#:[id number] Sodium Chloride 0.9% 1, 1000 000 ml @ 999 mls/hr IV . Q1H1M [facility] Rx#:[id number] Vancomycin 1,750 mg In 551 500 150 Sodium Chloride 0.9% 500 ml 500 ml @ 167 mls/hr IVPB Q12H [facility] Rx#: [id number] Oral 1080 120 Blood Product 1252 620 0 Rc Irr As1 Unit 0 [id number] Rc Irr As1 Unit 310 [id number] Rc Irr As1 Unit 310 [id number] Rc Irr As1 Unit 310 [id number] Rc Irr As1 Unit 310 [id number] Output: Urine 160 1025 1300 Other: Voiding Method Bedside Commode Bedside Commode Bedside Commode # Voids 1 - Constitutional General appearance: Present: average body habitus, cooperative, no acute distress - EENT EENT Comment(s): dry mouth Eyes: Present: EOMI, scleral icterus - Respiratory Respiratory: bilateral: diminished - Cardiovascular Heart sounds: normal: S1, S2 - Peripheral edema leg Peripheral Edema Comment(s): RUE swelling Peripheral Edema: bilateral: 1+ - Gastrointestinal General gastrointestinal: Present: distended, soft - Integumentary Integumentary: Present: jaundiced - Neurologic Neurologic: Present: CNII-XII intact - Musculoskeletal Musculoskeletal: Present: generalized weakness - Psychiatric Psychiatric: Present: A&O x's 3, appropriate affect, intact judgment & insight - Labs CBC & Chem 7: 05/05/19 05:25 05/05/19 05:25 Labs: Abnormal Lab Results - Last 24 Hours (Table) 05/03/19 05/03/19 05/04/19 Range/Units 15:33 17:08 17:00 WBC (3.8-10.6) k/uL RBC (3.80-5.40) m/uL Hgb (11.4-16.0) gm/dL Hct (34.0-46.0) % RDW (11.5-15.5) % Plt Count (150-450) k/uL Chloride (98-107) mmol/L Carbon Dioxide (22-30) mmol/L BUN (7-17) mg/dL Glucose (74-99) mg/dL POC Glucose (mg/dL) 240 H (75-99) mg/dL Calcium (8.4-10.2) mg/dL Iron 191 H (50-170) ug/dL TIBC 225 L (228-460) ug/dL % Saturation 84.89 H (12.00-45.00) Ferritin 910.7 H (10.0-291.0) ng/mL Total Bilirubin (0.2-1.3) mg/dL Total Protein (6.3-8.2) g/dL Albumin (3.5-5.0) g/dL Crossmatch See Detail Reference Lab Result See [facility]K REF Reports A 05/04/19 05/04/19 05/05/19 Range/Units 18:46 21:00 05:25 WBC 0.1 L* 0.1 L* (3.8-10.6) k/uL RBC 1.54 L 2.01 L (3.80-5.40) m/uL Hgb 4.8 L* 6.2 L* (11.4-16.0) gm/dL Hct 14.1 L* 18.1 L* (34.0-46.0) % RDW 18.5 H 17.1 H (11.5-15.5) % Plt Count 12 L* 14 L* (150-450) k/uL Chloride (98-107) mmol/L Carbon Dioxide (22-30) mmol/L BUN (7-17) mg/dL Glucose (74-99) mg/dL POC Glucose (mg/dL) 245 H (75-99) mg/dL Calcium (8.4-10.2) mg/dL Iron (50-170) ug/dL TIBC (228-460) ug/dL % Saturation (12.00-45.00) Ferritin (10.0-291.0) ng/mL Total Bilirubin (0.2-1.3) mg/dL Total Protein (6.3-8.2) g/dL Albumin (3.5-5.0) g/dL Crossmatch Reference Lab Result 05/05/19 05/05/19 05/05/19 Range/Units 05:25 07:21 12:04 WBC (3.8-10.6) k/uL RBC (3.80-5.40) m/uL Hgb (11.4-16.0) gm/dL Hct (34.0-46.0) % RDW (11.5-15.5) % Plt Count (150-450) k/uL Chloride 111 H (98-107) mmol/L Carbon Dioxide 20 L (22-30) mmol/L BUN 37 H (7-17) mg/dL Glucose 224 H (74-99) mg/dL POC Glucose (mg/dL) 238 H 265 H (75-99) mg/dL Calcium 7.4 L (8.4-10.2) mg/dL Iron (50-170) ug/dL TIBC (228-460) ug/dL % Saturation (12.00-45.00) Ferritin (10.0-291.0) ng/mL Total Bilirubin 7.1 H (0.2-1.3) mg/dL Total Protein 4.8 L (6.3-8.2) g/dL Albumin 2.4 L (3.5-5.0) g/dL Crossmatch Reference Lab Result Microbiology - Last 24 Hours (Table) 05/03/19 19:08 Blood Culture - Preliminary Blood No Growth after 24 hours 05/03/19 19:08 Blood Culture - Preliminary Blood No Growth after 24 hours Assessment and Plan (1) Hemolytic anemia Narrative/Plan: Hemolysis work up ordered Pulse dose dex started. Hgb up to 6.2, pending another unit of blood Current Visit: Yes Status: Acute Priority: High Code(s): D58.9 - HEREDITARY HEMOLYTIC ANEMIA, UNSPECIFIED SNOMED Code(s): 35563525 (2) Angioimmunoblastic T-cell lymphoma Narrative/Plan: S/P post 1st cycle of EPOCH, GCSF on 05/01. Pt due to see Dr. Gonzalez in office, appt has been changed. Have discussed case with rounding Physician for the weekend. They will review prognosis with pt and family as I did not have those answers. Current Visit: Yes Status: Acute Priority: High Code(s): C86.5 - ANGIO IMMUNOBLASTIC T-CELL LYMPHOMA SNOMED Code(s): 432610866 (3) Antineoplastic chemotherapy induced pancytopenia Narrative/Plan: PRBC least incompatible. Labs for hemolysis. Pulse dose steroids for hemolysis No GCSF, pt just had on 04/21. Platelets 14K today, transfuse if symptomatic or if 10K or less Current Visit: Yes Status: Acute Priority: High Code(s): D61.810 - ANTINEOPLASTIC CHEMOTHERAPY INDUCED PANCYTOPENIA; T45.1X5A - ADVERSE EFFECT OF ANTINEOPLASTIC AND IMMUNOSUP DRUGS, INIT SNOMED Code(s): 455108805665161 (4) Jaundice Narrative/Plan: Bilirubin down slightly, started on steroids for hemolysis, likely r/t hypotension as well. Labs daily, gentle hydration Current Visit: Yes Status: Acute Priority: High Code(s): R17 - UNSPECIFIED JAUNDICE SNOMED Code(s): 18013621 (5) Generalized weakness Narrative/Plan: Due to severe anemia, improved with transfusion, pending another unit Current Visit: Yes Status: Acute Priority: High Code(s): R53.1 - WEAKNESS SNOMED Code(s): 76821545 (6) Ascites Narrative/Plan: Quite possibly due to hypotension, additional fluids. Discussed with IM. Doc desai for now, plan for paracentesis if needed, prefer to wait until counts improve if able. Current Visit: Yes Status: Acute Priority: Medium Code(s): R18.8 - OTHER ASCITES SNOMED Code(s): 514432041
--- NOTE | 2019-05-05 14:29 | P.PN ---
Subjective Progress Note Date: 05/05/19 This is a 68-year-old female patient Dr Gaffney with a previous medical history significant for new diagnosed angioimmunoblastic T-cell lymphoma which was diagnosed 04/25/2019, along with tumor lysis syndrome, hypertension and hypertensive cardiovascular disease, hyperlipidemia, new diagnosis of diabetes mellitus type 2, history of breast cancer status post right lumpectomy with radiation therapy, diverticulosis, hypothyroidism, was started on chemotherapy Cytoxan, etoposide and prednisone. She was discharged to home 04/30/2019, with a total bili of 4.1 comes in to the emergency room with significant jaundice of 2 days' duration, increasing weakness, and severe anemia. Diminished appetite, increasing abdominal distention, and increasing dependent edema legs patient denies any palpitations or chest pain or pleurisy, no melena and hematochezia Emergency room, she has a WBC count of 0.2, hemoglobin 4.7, platelet count of 22 INR of 1.2, creatinine 0.5, total bilirubin of 6.5 from a previous number of 4.12 days ago.. Patient admitted to the ICU secondary to severe anemia and ja undice, this could be related to out to immune hemolytic anemia, oncology is on consult, Dr. Patrick is on consult for pulmonary medicine 2 units of packed red blood cells irradiated blood is currently being infused, possibility of right lower lobe pneumonia and parapneumonic effusion, started on IV antibiotic 05/05: Patient is still in ICU, feels more short of breath, hemoglobin currently is at 6.2, platelet count of 14, 7.1, patient has no shortness of breath or palpitations, still has diminished appetite, vital signs are stable in ICU, ultrasound shows moderate ascites, has dependent edema with anasarca will going to transfuse 1 unit of packed red blood cells irradiated blood, along with increase in the furosemide to 20 mg every 12 hours. Caution for hypotension, as her protein stores are low, with ongoing sepsiswill going to transfuse 1 unit of packed red blood cells irradiated blood, along with decrease in the torsemide to 20 mg every 12 h we will request dr lord to see her for physcial deconditioning , eval for IP rehab, will request PT OT eval Review of Systems Constitutional: Reports as per HPI, Reports anorexia, Reports poor appetite Ears, nose, mouth and throat: Reports as per HPI, Denies ant. neck pain, Denies bleeding gums, Denies dental pain, Denies dysphagia, Denies epistaxis, Denies headache, Denies hoarseness, Denies mouth pain, Denies nasal congestion, Denies nasal discharge, Denies neck fullness/pressure, Denies neck lump, Denies nose pain, Denies odynophagia, Denies post-nasal drip, Denies sinus pain, Denies sinus pressure, Denies swelling in mouth, Denies swelling in throat, Denies sore throat, Denies vertigo, Denies voice changes Cardiovascular: Reports as per HPI, Reports leg edema, Denies chest pain, Denies claudication, Denies decreased exercise tolerance, Denies dyspnea on exertion, Denies edema, Denies high blood pressure, Denies irregular heart beat, Denies lightheadedness, Denies orthopnea, Denies palpitations, Denies paroxysmal nocturnal dyspnea, Denies phlebitis, Denies rapid heart beat, Denies shortness of breath, Denies syncope Respiratory: Reports as per HPI, Denies congestion, Denies cough, Denies cough with sputum, Denies dyspnea, Denies excessive sputum, Denies hemoptysis, Denies home oxygen, Denies pain, Denies pain on inspiration, Denies pleurisy, Denies respiratory infections, Denies sleep apnea, Denies snoring, Denies wheezing Gastrointestinal: Reports as per HPI, Reports bloating, Reports loss of appetite Genitourinary: Reports as per HPI, Denies abnormal vaginal bleeding, Denies decreased libido, Denies difficulty conceiving, Denies difficulty voiding, Denies dysmenorrhea, Denies dyspareunia, Denies dysuria, Denies flank pain, Denies genital sores, Denies hematuria, Denies hot flashes, Denies incomplete emptying, Denies kidney stones, Denies menorrhagia, Denies mixed incontinence, Denies nocturia, Denies pelvic pain, Denies post void dribbling, Denies , Denies prolapse symptoms, Denies stress incontinence, Denies urge incontinence, Denies urgency, Denies urinary frequency, Denies vaginal discharge, Denies vaginal dryness, Denies vaginal itching, Denies vaginal odor Menstruation: Reports as per HPI Musculoskeletal: Reports as per HPI Integumentary: Reports as per HPI Neurological: Reports as per HPI Psychiatric: Reports as per HPI, Reports sleep disturbances Endocrine: Reports as per HPI Hematologic/Lymphatic: Reports as per HPI, Denies easy bleeding, Denies easy bruising, Denies lymphadenopathy, Denies lymphedema, Denies thrombophilia Allergic/Immunologic: Reports as per HPI, Denies allergic rhinitis, Denies anaphylaxis, Denies angioedema, Denies gluten intolerance, Denies persistent infections, Denies seasonal allergies, Denies urticaria, Denies wheezing Objective - Vital Signs Vital signs: Vital Signs Temp 98.1 F 05/05/19 04:00 Pulse 93 05/05/19 07:00 Resp 15 05/05/19 07:00 BP 105/61 05/05/19 07:00 Pulse Ox 94 L 05/05/19 07:00 Intake & Output 05/04/19 05/05/19 05/05/19 18:59 06:59 18:59 Intake Total 4803 1740 50 Output Total 160 1025 Balance 4643 715 50 Weight 111.5 kg Intake: IV 2471 1120 50 Cefepime 2 gm In Sodium 150 100 Chloride 0.9% 100 ml @ 200 mls/hr IVPB Q8HR [facility] Rx#:[id number] Sodium Chloride 0.9% 1, 770 520 50 000 ml @ 50 mls/hr IV . Q20H [facility] Rx#:[id number] Sodium Chloride 0.9% 1, 1000 000 ml @ 999 mls/hr IV . Q1H1M [facility] Rx#:[id number] Vancomycin 1,750 mg In 551 500 Sodium Chloride 0.9% 500 ml 500 ml @ 167 mls/hr IVPB Q12H [facility] Rx#: [id number] Oral 1080 Blood Product 1252 620 Rc Irr As1 Unit 310 [id number] Rc Irr As1 Unit 310 [id number] Rc Irr As1 Unit 310 [id number] Rc Irr As1 Unit 310 [id number] Output: Urine 160 1025 Other: Voiding Method Bedside Commode Bedside Commode # Voids 1 - Constitutional General appearance: Present: cooperative, no acute distress, obese - EENT Eyes: Present: anicteric sclerae, dentition normal, normal appearance ENT: Present: NA/AT, normal oropharynx - Neck Neck: Present: normal ROM - Respiratory Respiratory: bilateral: CTA, negative: dullness, rales, rhonchi, wheezing, prolonged expiration, prolonged inspiration - Cardiovascular Heart sounds: normal: S1, S2 Abnormal Heart Sounds: Absent: systolic murmur, diastolic murmur, rub, S3 Gallop, S4 Gallop, click, other - Gastrointestinal General gastrointestinal: Present: normal bowel sounds - Integumentary Integumentary: Present: normal, normal turgor - Neurologic Neurologic: Present: CNII-XII intact - Musculoskeletal Musculoskeletal: Present: strength equal bilaterally - Psychiatric Psychiatric: Present: A&O x's 3, appropriate affect, intact judgment & insight - Labs CBC & Chem 7: 05/05/19 05:25 05/05/19 05:25 Labs: Abnormal Lab Results - Last 24 Hours (Table) 05/03/19 05/03/19 05/04/19 Range/Units 15:33 17:08 05:10 WBC (3.8-10.6) k/uL RBC (3.80-5.40) m/uL Hgb (11.4-16.0) gm/dL Hct (34.0-46.0) % RDW (11.5-15.5) % Plt Count (150-450) k/uL Retic Count 0.2 L (0.5-2.0) % Chloride (98-107) mmol/L Carbon Dioxide (22-30) mmol/L BUN (7-17) mg/dL Glucose (74-99) mg/dL POC Glucose (mg/dL) (75-99) mg/dL Calcium (8.4-10.2) mg/dL Iron 191 H (50-170) ug/dL TIBC 225 L (228-460) ug/dL % Saturation 84.89 H (12.00-45.00) Ferritin 910.7 H (10.0-291.0) ng/mL Total Bilirubin (0.2-1.3) mg/dL Total Protein (6.3-8.2) g/dL Albumin (3.5-5.0) g/dL Crossmatch See Detail Reference Lab Result See [facility] REF Reports A 05/04/19 05/04/19 05/04/19 Range/Units 11:53 17:00 18:46 WBC 0.1 L* (3.8-10.6) k/uL RBC 1.54 L (3.80-5.40) m/uL Hgb 4.8 L* (11.4-16.0) gm/dL Hct 14.1 L* (34.0-46.0) % RDW 18.5 H (11.5-15.5) % Plt Count 12 L* (150-450) k/uL Retic Count (0.5-2.0) % Chloride (98-107) mmol/L Carbon Dioxide (22-30) mmol/L BUN (7-17) mg/dL Glucose (74-99) mg/dL POC Glucose (mg/dL) 178 H 240 H (75-99) mg/dL Calcium (8.4-10.2) mg/dL Iron (50-170) ug/dL TIBC (228-460) ug/dL % Saturation (12.00-45.00) Ferritin (10.0-291.0) ng/mL Total Bilirubin (0.2-1.3) mg/dL Total Protein (6.3-8.2) g/dL Albumin (3.5-5.0) g/dL Crossmatch Reference Lab Result 05/04/19 05/05/19 05/05/19 Range/Units 21:00 05:25 05:25 WBC 0.1 L* (3.8-10.6) k/uL RBC 2.01 L (3.80-5.40) m/uL Hgb 6.2 L* (11.4-16.0) gm/dL Hct 18.1 L* (34.0-46.0) % RDW 17.1 H (11.5-15.5) % Plt Count 14 L* (150-450) k/uL Retic Count (0.5-2.0) % Chloride 111 H (98-107) mmol/L Carbon Dioxide 20 L (22-30) mmol/L BUN 37 H (7-17) mg/dL Glucose 224 H (74-99) mg/dL POC Glucose (mg/dL) 245 H (75-99) mg/dL Calcium 7.4 L (8.4-10.2) mg/dL Iron (50-170) ug/dL TIBC (228-460) ug/dL % Saturation (12.00-45.00) Ferritin (10.0-291.0) ng/mL Total Bilirubin 7.1 H (0.2-1.3) mg/dL Total Protein 4.8 L (6.3-8.2) g/dL Albumin 2.4 L (3.5-5.0) g/dL Crossmatch Reference Lab Result 05/05/19 Range/Units 07:21 WBC (3.8-10.6) k/uL RBC (3.80-5.40) m/uL Hgb (11.4-16.0) gm/dL Hct (34.0-46.0) % RDW (11.5-15.5) % Plt Count (150-450) k/uL Retic Count (0.5-2.0) % Chloride (98-107) mmol/L Carbon Dioxide (22-30) mmol/L BUN (7-17) mg/dL Glucose (74-99) mg/dL POC Glucose (mg/dL) 238 H (75-99) mg/dL Calcium (8.4-10.2) mg/dL Iron (50-170) ug/dL TIBC (228-460) ug/dL % Saturation (12.00-45.00) Ferritin (10.0-291.0) ng/mL Total Bilirubin (0.2-1.3) mg/dL Total Protein (6.3-8.2) g/dL Albumin (3.5-5.0) g/dL Crossmatch Reference Lab Result Microbiology - Last 24 Hours (Table) 05/03/19 19:08 Blood Culture - Preliminary Blood No Growth after 24 hours 05/03/19 19:08 Blood Culture - Preliminary Blood No Growth after 24 hours Assessment and Plan Plan: 1. Severe pancytopenia, recent chemotherapy for T-cell lymphoma with hemolytic anemia, severe jaundice, 2 units packed red blood cell, irradiated, ICU management, oncology is following, pulmonary following 2 Angioimmunoblastic T-cell lymphoma) T-cell lymphoma CD30 (final pathologic report with [facility]) due to her malignancy. Oncology consult on chemotherapy and plan for bone marrow transplant in future, chemotherapy initiated with etoposide, doxorubicin, vincristine emanuel 2and cyclophosphamide to be initiated on April 29await hematology oncology input. pathology suggestive angioimmunoblastic T-cell lymphoma started on dexamethasone 10 mg every 6 hours 3. Severe jaundice, unconjugated bilirubin fractionation, suspect hemolytic anemia might need reconsult GI at this time, if worse, hepatitis viral screening negative oncology has been consulted avoid transfusion with incompatible packed red blood cells, IV hydration dexamethasone started 4. Anasarca, with abdominal distention, moderate ascites, worsening davin to edema, increase IV Lasix 20 mg every 12hours, there might be some for titration the future, blood pressure is marginally on the low side, start protein supplementation with diet, abdominal ultrasounaluate for ascites shows large poc ket left lower quadrant, area, not amenable to abdominal thoracentesis, as platelet count is too low 5 Gram-negative pneumonia possibility, patient is on cefepime, vancomycin pharmacy to dose, Dr. Byrd pulmonary medicine 6. Tumor lysis syndrome hx. Oncology is following. Patient is status post Elitek. 7. Diabetes mellitus type 2, uncontrolled with hyperglycemia secondary to steroids. Continue NovoLog scale and increase Levemir to 12 units BID 8. Hyperlipidemia. Discontinue Crestor for now. Secondary to severe jaundice 9. Hypothyroidism. Continue Synthroid increased to 75 g orally once every day. 10. Diverticulosis. Colonoscopy is up-to-date. 11. Recurrent Depression. Currently on Effexor XR 75 mg orally once every day. 12. DVT prophylaxis. Bilateral knee-high THA hose. 13. GI prophylaxis. Protonix 40 mg IV push every 24 hours. 5 Hypertension and hypertensive cardiovascular disease stablecan be started on amlodipine 5 mg daily. 16. Hepatocellular disease. Ultrasound of the abdomen as above. . Hepatitis panel neg 17. debility with physical deconitioning, start PT OT, consult DR lord Code status: full code.
[2019-05-05] MEDS ORDERED: INSULIN REGULAR BOLUS (FROM DRIP BAG) IV PRN (16:45)
[2019-05-05 17:11] LABS: Glucose,Whole Blood 214 mg/dL (75-99)
[2019-05-05] MEDS: REPAGLINIDE 1 MG TAB PO SCH (17:55)
[2019-05-05 18:05] LABS: Anisocytosis Slight; MCH 30.3 pg (25.0-35.0); MCHC 34.3 g/dL (31.0-37.0); MCV 88.2 fL (80.0-100.0); Mean Platelet Volume 11.2; Poikilocytosis Slight; RBC 2.18 m/uL (3.80-5.40); RDW 17.1 % (11.5-15.5)
[2019-05-05 18:10] LABS: HCT 19.2 % (34.0-46.0); HGB 6.6 gm/dL (11.4-16.0); Platelet Count 12 k/uL (150-450); WBC 0.1 k/uL (3.8-10.6)
[2019-05-05] MEDS: SODIUM CHLORIDE 0.9% 1,000 ML IV SCH (20:20)
[2019-05-05 20:55] LABS: Glucose,Whole Blood 206 mg/dL (75-99)
[2019-05-05] MEDS ORDERED: FUROSEMIDE 10 MG/ML 2 ML VIAL IV SCH (21:00)
[2019-05-06] MEDS: CEFEPIME 2 GM in SODIUM CHLORIDE 0.9% 100 ML IVPB SCH ×3 (01:07→16:13)
[2019-05-06] MEDS: DEXAMETHASONE SOD PHOS (MDV) 100 MG/10 ML VIAL IVP SCH ×4 (01:07→17:24)
[2019-05-06 05:51] LABS: Anisocytosis Slight; MCH 29.8 pg (25.0-35.0); MCHC 33.5 g/dL (31.0-37.0); MCV 88.8 fL (80.0-100.0); Mean Platelet Volume 11.9; Poikilocytosis Slight; RDW 17.2 % (11.5-15.5)
[2019-05-06 05:54] LABS: HCT 18.6 % (34.0-46.0); HGB 6.2 gm/dL (11.4-16.0); Platelet Count 11 k/uL (150-450); WBC 0.2 k/uL (3.8-10.6)
[2019-05-06 06:08] LABS: ALT 26 U/L (4-34); AST 16 U/L (14-36); African American GFR (CKD) >90 (>60 ml/min/1.73 sqM); Albumin 2.5 g/dL (3.5-5.0); Alkaline Phosphatase 54 U/L (38-126); Anion Gap 4 mmol/L; Blood Urea Nitrogen 33 mg/dL (7-17); Calcium 7.5 mg/dL (8.4-10.2); Carbon Dioxide 24 mmol/L (22-30); Chloride 110 mmol/L (98-107); Glucose 158 mg/dL (74-99); Non-African American GFR(CKD) >90 (>60 ml/min/1.73 sqM); Potassium 4.3 mmol/L (3.5-5.1); Sodium 138 mmol/L (137-145); Total Bilirubin 4.6 mg/dL (0.2-1.3); Total Protein 4.9 g/dL (6.3-8.2)
[2019-05-06 06:25] LABS: Anisocytosis (M) Present; Poikilocytosis (M) Present
[2019-05-06] MEDS ORDERED: VANCOMYCIN TROUGH DUE 1 EACH MISC MISCELLANE ONE (07:00)
[2019-05-06 07:03] LABS: Glucose,Whole Blood 187 mg/dL (75-99)
[2019-05-06] MEDS: LEVOTHYROXINE 50 MCG TAB PO SCH (07:04)
[2019-05-06] MEDS: REPAGLINIDE 1 MG TAB PO SCH ×3 (07:04→17:23)
[2019-05-06] MEDS: INSULIN ASPART (NovoLOG) 100 UNIT/ML VIAL SQ SCH ×3 (07:05→17:23)
[2019-05-06] MEDS: metFORMIN 500 MG TAB PO SCH ×2 (07:05→17:23)
[2019-05-06] MEDS: VANCOMYCIN 1,750 MG in SODIUM CHLORIDE 0.9% 500 ML 500 ML IVPB SCH ×2 (08:45→20:03)
[2019-05-06] MEDS: PANTOPRAZOLE 40 MG TABLET PO SCH (08:46)
[2019-05-06] MEDS: VENLAFAXINE HCL 75 MG TAB PO SCH (08:46)
[2019-05-06] MEDS ORDERED: FUROSEMIDE 10 MG/ML 2 ML VIAL IV SCH (09:00)
[2019-05-06] MEDS: SODIUM CHLORIDE 0.9% 1,000 ML IV SCH (09:14)
[2019-05-06] MEDS: amLODIPine 5 MG TAB PO SCH (11:19)
[2019-05-06] MEDS: LISINOPRIL 20 MG TAB PO SCH (11:19)
[2019-05-06 11:53] LABS: Glucose,Whole Blood 222 mg/dL (75-99)
--- NOTE | 2019-05-06 12:05 | P.PN ---
Subjective Progress Note Date: 05/06/19 Principal diagnosis: Chemotherapy-induced pancytopenia and acute hemolytic anemia This is a 68-year-old female recently diagnosed with angioimmunoblastic T-cell lymphoma presented mostly with generalized lymphadenopathy and bone marrow involvement with one episode of tumor lysis syndrome. Her diagnosis was made by biopsy of a right sided supraclavicular lymph node. Patient was recently in the hospital, and she was treated for tumor lysis syndrome and pancytopenia. She received aggressive course of chemotherapy during her hospital stay, and she was discharged home on 04/30/2019. Patient presented to the ER yesterday, 3 days after discharge from the hospital mostly with complaints of weakness. She was also noting yellow discoloration. She had no nausea or vomiting, no abdominal pain, she had no cough no wheezing no fever no chills no hemoptysis, she was just feeling generally weak. Workup in the ER showed a WBC count of 0.4, hemoglobin 4.7, and her hemoglobin was 7.7 on 04/30. She was also noted to have low platelets at 22,000. Lactic acid was noted to be 2.3, total bilirubin was noted to be up to 6.5 from 4.1 few days ago, alkaline phosphatase of 58, and LDH of 584 Calcium was 7.5. Reticulocyte count of 0.2. Chest x-ray showed evidence of right sided pleural effusion, and right lower lobe atelectasis and/or consolidation. Patient was admitted to the intensive care unit, started empirically on vancomycin and cefepime. Cultures are all pending. Fluids were given. And blood transfusion was ordered however it seems to be difficult to find compatible blood for this patient, and the process of blood transfusion is pending. Considering the patient was admitted to the ICU, I was asked to see her on consultation Reevaluated today on 05/05/2019, patient remains in the intensive care units. Hemodynamically stable, on room air, denies any shortness of breath, no cough no wheezing and no chest pain. Patient is sitting at a bedside chair, seems to be quite comfortable. She received so far a total of 5 units of packed RBCs for her profound anemia which was felt to be hemolytic in nature. Hemoglobin today is 6.2. Platelets remained low at 14,000. WBC count is 0.1. Basic metabolic profile is normal. Chest x-ray showed slight improvement in her right pleural effusion and right lower lobe atelectasis/infiltrate. Ultrasound of the abdomen showed moderate ascites. Patient remains on diuretics, and the dose was increased to Lasix 20 mg every 12 hours. Blood cultures remain negative so far from admission. Reevaluated today on 05/06/2019, patient remains in the ICU, remains on room air, hemoglobin is 6.2 today, however the patient is relatively asymptomatic. WBC count remains low, platelets remained low, patient isn't responding well to diuretics, remains on broad-spectrum antibiotics. No major change room attendant the last 24 hours. Patient did receive a total of 5 units of packed RBCs since admission, and her hemoglobin today is 6.2 platelets are 11,000. Basic metabolic profile and renal profile remained relatively normal. Objective - Vital Signs Vital signs: Vital Signs Temp 97.7 F 05/06/19 08:00 Pulse 98 05/06/19 11:00 Resp 14 05/06/19 11:00 BP 114/64 05/06/19 11:00 Pulse Ox 96 05/06/19 11:00 Intake & Output 05/05/19 05/06/19 05/06/19 18:59 06:59 18:59 Intake Total 2050 1056 725 Output Total 2200 1200 900 Balance -150 -144 -175 Weight 112.7 kg Intake: IV 1000 816 725 Cefepime 2 gm In Sodium 100 100 100 Chloride 0.9% 100 ml @ 200 mls/hr IVPB Q8HR [facility] Rx#:[id number] Sodium Chloride 0.9% 1, 250 215 125 000 ml @ 25 mls/hr IV . Q24H [facility] Rx#:[id number] Vancomycin 1,750 mg In 650 501 500 Sodium Chloride 0.9% 500 ml 500 ml @ 167 mls/hr IVPB Q12H [facility] Rx#: [id number] Oral 740 240 Blood Product 310 Rc Irr As1 Unit 310 [id number] Output: Urine 2200 1200 900 Other: Voiding Method Bedside Commode Bedside Commode Bedside Commode # Voids 0 0 - Exam General appearance: Revealed a 68-year-old female, on room air, asymptomatic. Head exam: Atraumatic, normocephalic. Eye exam: . PERRLA, EOMI, positive icterus.. ENT exam: Moist mucous membranes otherwise unremarkable. Neck exam: Positive right posterior cervical lymphadenopathy noted. Respiratory exam: Diminished breath sounds at the right base, no crackles or rhonchi or wheezes. Cardiovascular Exam: Normal S1 and S2, no S3 gallop, no murmur. GI/Abdominal exam: Soft nontender no megaly no rebound no guarding. Positive ascites Extremities exam:3+ bipedal edema, good pulses bilaterally. Neurological exam: Alert oriented 3, no gross focal deficits. Psychiatric exam: Normal mood blunt affect normal mental status examination Skin exam: Jaundiced otherwise unremarkable. No rashes - Labs CBC & Chem 7: 05/06/19 05:10 05/06/19 05:10 Labs: Abnormal Lab Results - Last 24 Hours (Table) 05/03/19 05/04/19 05/05/19 Range/Units 17:08 05:10 12:04 WBC (3.8-10.6) k/uL RBC (3.80-5.40) m/uL Hgb (11.4-16.0) gm/dL Hct (34.0-46.0) % RDW (11.5-15.5) % Plt Count (150-450) k/uL Haptoglobin <8.0 L (31.2-198.0) mg/dL Chloride (98-107) mmol/L BUN (7-17) mg/dL Glucose (74-99) mg/dL POC Glucose (mg/dL) 265 H (75-99) mg/dL Calcium (8.4-10.2) mg/dL Total Bilirubin (0.2-1.3) mg/dL Total Protein (6.3-8.2) g/dL Albumin (3.5-5.0) g/dL Crossmatch See Detail Reference Lab Result See [facility] REF Reports A 05/05/19 05/05/19 05/05/19 Range/Units 17:00 17:30 20:44 WBC 0.1 L* (3.8-10.6) k/uL RBC 2.18 L (3.80-5.40) m/uL Hgb 6.6 L* (11.4-16.0) gm/dL Hct 19.2 L* (34.0-46.0) % RDW 17.1 H (11.5-15.5) % Plt Count 12 L* (150-450) k/uL Haptoglobin (31.2-198.0) mg/dL Chloride (98-107) mmol/L BUN (7-17) mg/dL Glucose (74-99) mg/dL POC Glucose (mg/dL) 214 H 206 H (75-99) mg/dL Calcium (8.4-10.2) mg/dL Total Bilirubin (0.2-1.3) mg/dL Total Protein (6.3-8.2) g/dL Albumin (3.5-5.0) g/dL Crossmatch Reference Lab Result 05/06/19 05/06/19 05/06/19 Range/Units 05:10 05:10 06:51 WBC 0.2 L* (3.8-10.6) k/uL RBC 2.10 L (3.80-5.40) m/uL Hgb 6.2 L* (11.4-16.0) gm/dL Hct 18.6 L* (34.0-46.0) % RDW 17.2 H (11.5-15.5) % Plt Count 11 L* (150-450) k/uL Haptoglobin (31.2-198.0) mg/dL Chloride 110 H (98-107) mmol/L BUN 33 H (7-17) mg/dL Glucose 158 H (74-99) mg/dL POC Glucose (mg/dL) 187 H (75-99) mg/dL Calcium 7.5 L (8.4-10.2) mg/dL Total Bilirubin 4.6 H (0.2-1.3) mg/dL Total Protein 4.9 L (6.3-8.2) g/dL Albumin 2.5 L (3.5-5.0) g/dL Crossmatch Reference Lab Result 05/06/19 Range/Units 11:42 WBC (3.8-10.6) k/uL RBC (3.80-5.40) m/uL Hgb (11.4-16.0) gm/dL Hct (34.0-46.0) % RDW (11.5-15.5) % Plt Count (150-450) k/uL Haptoglobin (31.2-198.0) mg/dL Chloride (98-107) mmol/L BUN (7-17) mg/dL Glucose (74-99) mg/dL POC Glucose (mg/dL) 222 H (75-99) mg/dL Calcium (8.4-10.2) mg/dL Total Bilirubin (0.2-1.3) mg/dL Total Protein (6.3-8.2) g/dL Albumin (3.5-5.0) g/dL Crossmatch Reference Lab Result Microbiology - Last 24 Hours (Table) 05/03/19 19:08 Blood Culture - Preliminary Blood No Growth after 48 hours 05/03/19 19:08 Blood Culture - Preliminary Blood No Growth after 48 hours Assessment and Plan Assessment: Impression: 1 chemotherapy induced pancytopenia, 2 recurrent anemia, acute hemolytic in nature unless for otherwise. 3 neutropenic sepsis, has the patient will be continued on empiric broad- spectrum antibiotics. 4 possible right lower lobe pneumonia with parapneumonic effusion, continue broad-spectrum antibiotics as ordered. Improving based on the chest x-ray today compared to yesterday. 5 history of mild component of tumor lysis syndrome, noted on her last admission/resolved 6 history of breast cancer and previous lumpectomy 7 multiple comorbidities including hypertension, hyperlipidemia, hypothyroidism, and type 2 diabetes. 8 angioimmunoblastic T-cell lymphoma 9 ascites Recommendation: Continue to monitor hemoglobin, and transfuse accordingly, try to keep hemoglobin close to 7. Continue antibiotics in the form of vancomycin and cefepime Continue Decadron patient is at 10 mg IV push every 6 hours. continue Lasix 20 mg IV push every 12 hours. Add Aldactone 25 mg by mouth daily Resume home meds, continue to hold statins Continue to monitor closely in the ICU. Prognosis is definitely guarded. We'll continue to follow while in the ICU Time with Patient: Less than 30
--- NOTE | 2019-05-06 13:18 | P.PN ---
Subjective Progress Note Date: 05/06/19 This is a 68-year-old female patient Dr Gaffney with a previous medical history significant for new diagnosed angioimmunoblastic T-cell lymphoma which was diagnosed 04/25/2019, along with tumor lysis syndrome, hypertension and hypertensive cardiovascular disease, hyperlipidemia, new diagnosis of diabetes mellitus type 2, history of breast cancer status post right lumpectomy with radiation therapy, diverticulosis, hypothyroidism, was started on chemotherapy Cytoxan, etoposide and prednisone. She was discharged to home 04/30/2019, with a total bili of 4.1 comes in to the emergency room with significant jaundice of 2 days' duration, increasing weakness, and severe anemia. Diminished appetite, increasing abdominal distention, and increasing dependent edema legs patient denies any palpitations or chest pain or pleurisy, no melena and hematochezia Emergency room, she has a WBC count of 0.2, hemoglobin 4.7, platelet count of 22 INR of 1.2, creatinine 0.5, total bilirubin of 6.5 from a previous number of 4.12 days ago.. Patient admitted to the ICU secondary to severe anemia and ja undice, this could be related to out to immune hemolytic anemia, oncology is on consult, Dr. Patrick is on consult for pulmonary medicine 2 units of packed red blood cells irradiated blood is currently being infused, possibility of right lower lobe pneumonia and parapneumonic effusion, started on IV antibiotic 05/05: Patient is still in ICU, feels more short of breath, hemoglobin currently is at 6.2, platelet count of 14, 7.1, patient has no shortness of breath or palpitations, still has diminished appetite, vital signs are stable in ICU, ultrasound shows moderate ascites, has dependent edema with anasarca will going to transfuse 1 unit of packed red blood cells irradiated blood, along with increase in the furosemide to 20 mg every 12 hours. Caution for hypotension, as her protein stores are low, with ongoing sepsiswill going to transfuse 1 unit of packed red blood cells irradiated blood, along with decrease in the torsemide to 20 mg every 12 h we will request dr lord to see her for physcial deconditioning , eval for IP rehab, will request PT OT eval 05/06: Patient remains in ICU, hemoglobin of 6.2, more edema noted today, more abdominal distention today, however she still comfortable with her abdomen, platelet count is still low at 11, no plan for rbc transfusion today per on cology, we'll going to discontinue amlodipine and lisinopril to allow more diuretic use, increase furosemide to 40 mg every 12 hours, continued Aldactone 25, she remains on Prandin, and dexamethasone, blood sugars are between 182-212, creatinine 0.56. Patient does not have any chest pain, no palpitations, no insomnia, she is on supplement 3 times a day at 60 g of protein per day along with her meals, albumin is low at 2.5, blood pressure 110-120 systolic Review of Systems Constitutional: Reports as per HPI, Reports anorexia, Reports poor appetite Ears, nose, mouth and throat: Reports as per HPI, Denies ant. neck pain, Denies bleeding gums, Denies dental pain, Denies dysphagia, Denies epistaxis, Denies headache, Denies hoarseness, Denies mouth pain, Denies nasal congestion, Denies nasal discharge, Denies neck fullness/pressure, Denies neck lump, Denies nose pain, Denies odynophagia, Denies post-nasal drip, Denies sinus pain, Denies sinus pressure, Denies swelling in mouth, Denies swelling in throat, Denies sore throat, Denies vertigo, Denies voice changes Cardiovascular: Reports as per HPI, Reports leg edema, Denies chest pain, Denies claudication, Denies decreased exercise tolerance, Denies dyspnea on exertion, Denies edema, Denies high blood pressure, Denies irregular heart beat, Denies lightheadedness, Denies orthopnea, Denies palpitations, Denies paroxysmal nocturnal dyspnea, Denies phlebitis, Denies rapid heart beat, Denies shortness of breath, Denies syncope Respiratory: Reports as per HPI, Denies congestion, Denies cough, Denies cough with sputum, Denies dyspnea, Denies excessive sputum, Denies hemoptysis, Denies home oxygen, Denies pain, Denies pain on inspiration, Denies pleurisy, Denies respiratory infections, Denies sleep apnea, Denies snoring, Denies wheezing Gastrointestinal: Reports as per HPI, Reports bloating, Reports loss of appetite Genitourinary: Reports as per HPI, Denies abnormal vaginal bleeding, Denies decreased libido, Denies difficulty conceiving, Denies difficulty voiding, Denies dysmenorrhea, Denies dyspareunia, Denies dysuria, Denies flank pain, Denies genital sores, Denies hematuria, Denies hot flashes, Denies incomplete emptying, Denies kidney stones, Denies menorrhagia, Denies mixed incontinence, Denies nocturia, Denies pelvic pain, Denies post void dribbling, Denies , Denies prolapse symptoms, Denies stress incontinence, Denies urge incontinence, Denies urgency, Denies urinary frequency, Denies vaginal discharge, Denies vaginal dryness, Denies vaginal itching, Denies vaginal odor Menstruation: Reports as per HPI Musculoskeletal: Reports as per HPI Integumentary: Reports as per HPI Neurological: Reports as per HPI Psychiatric: Reports as per HPI, Reports sleep disturbances Endocrine: Reports as per HPI Hematologic/Lymphatic: Reports as per HPI, Denies easy bleeding, Denies easy bruising, Denies lymphadenopathy, Denies lymphedema, Denies thrombophilia Allergic/Immunologic: Reports as per HPI, Denies allergic rhinitis, Denies anaphylaxis, Denies angioedema, Denies gluten intolerance, Denies persistent infections, Denies seasonal allergies, Denies urticaria, Denies wheezing Objective - Vital Signs Vital signs: Vital Signs Temp 97.7 F 05/06/19 08:00 Pulse 98 05/06/19 11:00 Resp 14 05/06/19 11:00 BP 114/64 05/06/19 11:00 Pulse Ox 96 05/06/19 11:00 Intake & Output 05/05/19 05/06/19 05/06/19 18:59 06:59 18:59 Intake Total 2050 1056 725 Output Total 2200 1200 900 Balance -150 -144 -175 Weight 112.7 kg Intake: IV 1000 816 725 Cefepime 2 gm In Sodium 100 100 100 Chloride 0.9% 100 ml @ 200 mls/hr IVPB Q8HR [facility] Rx#:[id number] Sodium Chloride 0.9% 1, 250 215 125 000 ml @ 25 mls/hr IV . Q24H [facility] Rx#:[id number] Vancomycin 1,750 mg In 650 501 500 Sodium Chloride 0.9% 500 ml 500 ml @ 167 mls/hr IVPB Q12H [facility] Rx#: [id number] Oral 740 240 Blood Product 310 Rc Irr As1 Unit 310 [id number] Output: Urine 2200 1200 900 Other: Voiding Method Bedside Commode Bedside Commode Bedside Commode # Voids 0 0 - Constitutional General appearance: Present: cooperative, no acute distress - EENT Eyes: Present: anicteric sclerae, EOMI, PERRLA ENT: Present: NA/AT, normal oropharynx - Neck Neck: Present: normal ROM - Respiratory Respiratory: bilateral: CTA, negative: diminished, dullness, rales - Cardiovascular Rhythm: regular Heart sounds: normal: S1, S2 Abnormal Heart Sounds: Absent: systolic murmur, diastolic murmur, rub, S3 Gallop, S4 Gallop, click, other - Gastrointestinal General gastrointestinal: Present: distended, normal bowel sounds - Integumentary Integumentary: Present: normal - Neurologic Neurologic: Present: CNII-XII intact - Musculoskeletal Musculoskeletal: Present: gait normal, strength equal bilaterally - Psychiatric Psychiatric: Present: A&O x's 3, appropriate affect, intact judgment & insight - Labs CBC & Chem 7: 05/06/19 05:10 05/06/19 05:10 Labs: Abnormal Lab Results - Last 24 Hours (Table) 05/03/19 05/04/19 05/05/19 Range/Units 17:08 05:10 12:04 WBC (3.8-10.6) k/uL RBC (3.80-5.40) m/uL Hgb (11.4-16.0) gm/dL Hct (34.0-46.0) % RDW (11.5-15.5) % Plt Count (150-450) k/uL Haptoglobin <8.0 L (31.2-198.0) mg/dL Chloride (98-107) mmol/L BUN (7-17) mg/dL Glucose (74-99) mg/dL POC Glucose (mg/dL) 265 H (75-99) mg/dL Calcium (8.4-10.2) mg/dL Total Bilirubin (0.2-1.3) mg/dL Total Protein (6.3-8.2) g/dL Albumin (3.5-5.0) g/dL Crossmatch See Detail Reference Lab Result See [facility]K REF Reports A 05/05/19 05/05/19 05/05/19 Range/Units 17:00 17:30 20:44 WBC 0.1 L* (3.8-10.6) k/uL RBC 2.18 L (3.80-5.40) m/uL Hgb 6.6 L* (11.4-16.0) gm/dL Hct 19.2 L* (34.0-46.0) % RDW 17.1 H (11.5-15.5) % Plt Count 12 L* (150-450) k/uL Haptoglobin (31.2-198.0) mg/dL Chloride (98-107) mmol/L BUN (7-17) mg/dL Glucose (74-99) mg/dL POC Glucose (mg/dL) 214 H 206 H (75-99) mg/dL Calcium (8.4-10.2) mg/dL Total Bilirubin (0.2-1.3) mg/dL Total Protein (6.3-8.2) g/dL Albumin (3.5-5.0) g/dL Crossmatch Reference Lab Result 05/06/19 05/06/19 05/06/19 Range/Units 05:10 05:10 06:51 WBC 0.2 L* (3.8-10.6) k/uL RBC 2.10 L (3.80-5.40) m/uL Hgb 6.2 L* (11.4-16.0) gm/dL Hct 18.6 L* (34.0-46.0) % RDW 17.2 H (11.5-15.5) % Plt Count 11 L* (150-450) k/uL Haptoglobin (31.2-198.0) mg/dL Chloride 110 H (98-107) mmol/L BUN 33 H (7-17) mg/dL Glucose 158 H (74-99) mg/dL POC Glucose (mg/dL) 187 H (75-99) mg/dL Calcium 7.5 L (8.4-10.2) mg/dL Total Bilirubin 4.6 H (0.2-1.3) mg/dL Total Protein 4.9 L (6.3-8.2) g/dL Albumin 2.5 L (3.5-5.0) g/dL Crossmatch Reference Lab Result Microbiology - Last 24 Hours (Table) 05/03/19 19:08 Blood Culture - Preliminary Blood No Growth after 48 hours 05/03/19 19:08 Blood Culture - Preliminary Blood No Growth after 48 hours Assessment and Plan Plan: 1. Severe pancytopenia, recent chemotherapy for T-cell lymphoma with hemolytic anemia, severe jaundice, 2 units packed red blood cell, irradiated, ICU management, oncology is following, pulmonary following 2 Angioimmunoblastic T-cell lymphoma) T-cell lymphoma CD30 (final pathologic report with [facility]) due to her malignancy. Oncology consult on chemotherapy and plan for bone marrow transplant in future, chemotherapy initiated with etoposide, doxorubicin, vincristine emanuel 2and cyclophosphamide to be initiated on April 29await hematology oncology input. pathology suggestive angioimm unoblastic T-cell lymphoma started on dexamethasone 10 mg every 6 hours 3. Severe jaundice, unconjugated bilirubin fractionation, suspect hemolytic anemia might need reconsult GI at this time, if worse, hepatitis viral screening negative oncology has been consulted avoid transfusion with incompat ible packed red blood cells, IV hydration dexamethasone started 4. Anasarca, with abdominal distention, moderate ascites, worsening davin to edema, increase IV Lasix 40mg every 12hours, there might be some for titration the future, blood pressure is marginally on the low side, start protein supplem entation with diet, abdominal ultrasounaluate for ascites shows large pocket left lower quadrant, area, not amenable to abdominal thoracentesis, as platelet count is too low 5 Gram-negative pneumonia possibility, patient is on cefepime, vancomycin pharmacy to dose, Dr. Byrd pulmonary medicine 6. Tumor lysis syndrome hx. Oncology is following. Patient is status post Elitek. 7. Diabetes mellitus type 2, uncontrolled with hyperglycemia secondary to steroids. Continue NovoLog scale and on Prandin 500 mg twice a day, we've titrated postprandial elevation of sugars with Prandin 1 mg 3 times a day, not on long-acting med 8. Hyperlipidemia. Discontinue Crestor for now. Secondary to severe jaundice 9. Hypothyroidism. Continue Synthroid increased to 75 g orally once every day. 10. Diverticulosis. Colonoscopy is up-to-date. 11. Recurrent Depression. Currently on Effexor XR 75 mg orally once every day. 12. DVT prophylaxis. Bilateral knee-high THA hose. 13. GI prophylaxis. Protonix 40 mg IV push every 24 hours. 5 Hypertension and hypertensive cardiovascular disease stable , discontinue amlodipine 5 and lisinopril 40 mg to allow maximizing diuretic use. Lisinopril 40 mg every 12 hours continue Aldactone 25 16. Hepatocellular disease. Ultrasound of the abdomen as above. . Hepatitis panel neg 17. debility with physical deconitioning, start PT OT, consult DR lord Code status: full code.
[2019-05-06] MEDS ORDERED: FUROSEMIDE 10 MG/ML 4 ML VIAL IV SCH (13:30)
[2019-05-06] MEDS: SPIRONOLACTONE 25 MG TAB PO SCH (16:13)
[2019-05-06 17:04] LABS: Glucose,Whole Blood 200 mg/dL (75-99)
[2019-05-06 20:54] LABS: Glucose,Whole Blood 228 mg/dL (75-99)
[2019-05-06] MEDS: FUROSEMIDE 10 MG/ML 4 ML VIAL IV SCH (21:16)
--- NOTE | 2019-05-06 23:05 | P.PN ---
Subjective Progress Note Date: 05/06/19 Principal diagnosis: Severe Anemia Feels much better today. Hgb 6.2 this am. Objective - Vital Signs Vital signs: Vital Signs Temp 96.7 F L 05/06/19 16:00 Pulse 107 H 05/06/19 16:00 Resp 17 05/06/19 16:00 BP 116/70 05/06/19 16:00 Pulse Ox 94 L 05/06/19 16:00 Intake & Output 05/05/19 05/06/19 05/06/19 18:59 06:59 18:59 Intake Total 2050 1056 950 Output Total 2200 1200 1600 Balance -150 -144 -650 Weight 112.7 kg 112.7 kg Intake: IV 1000 816 950 Cefepime 2 gm In Sodium 100 100 200 Chloride 0.9% 100 ml @ 200 mls/hr IVPB Q8HR [facility] Rx#:[id number] Sodium Chloride 0.9% 1, 250 215 250 000 ml @ 25 mls/hr IV . Q24H [facility] Rx#:[id number] Vancomycin 1,750 mg In 650 501 500 Sodium Chloride 0.9% 500 ml 500 ml @ 167 mls/hr IVPB Q12H [facility] Rx#: [id number] Oral 740 240 Blood Product 310 Rc Irr As1 Unit 310 [id number] Output: Urine 2200 1200 1600 Other: Voiding Method Bedside Commode Bedside Commode Bedside Commode # Voids 0 0 # Bowel Movements 1 - Exam Gen.: In no acute distress. HEENT: Conjunctival pallor. No scleral icterus. Mucosa moist. Neck: Neck supple. Lymph: enlarged, mobile, nontender rate cervical and bilateral axillary lymphadenopathy. Lungs: CTAB without wheezing or rhonchi. Heart: RRR. 1-2+ bilateral lower extremity edema. Abdomen: Soft, nontender, nondistended, with positive bowel sounds. MSK: 4/4 strength in all 4 extremities. Neuro: Alert and oriented 3. No obvious gross neurologic deficits. Skin: No jaundice or rash. Psych: Appropriate affect. - Labs CBC & Chem 7: 05/06/19 05:10 05/06/19 05:10 Labs: Abnormal Lab Results - Last 24 Hours (Table) 05/04/19 05/05/19 05/05/19 Range/Units 05:10 17:30 20:44 WBC 0.1 L* (3.8-10.6) k/uL RBC 2.18 L (3.80-5.40) m/uL Hgb 6.6 L* (11.4-16.0) gm/dL Hct 19.2 L* (34.0-46.0) % RDW 17.1 H (11.5-15.5) % Plt Count 12 L* (150-450) k/uL Haptoglobin <8.0 L (31.2-198.0) mg/dL Chloride (98-107) mmol/L BUN (7-17) mg/dL Glucose (74-99) mg/dL POC Glucose (mg/dL) 206 H (75-99) mg/dL Calcium (8.4-10.2) mg/dL Total Bilirubin (0.2-1.3) mg/dL Total Protein (6.3-8.2) g/dL Albumin (3.5-5.0) g/dL 05/06/19 05/06/19 05/06/19 Range/Units 05:10 05:10 06:51 WBC 0.2 L* (3.8-10.6) k/uL RBC 2.10 L (3.80-5.40) m/uL Hgb 6.2 L* (11.4-16.0) gm/dL Hct 18.6 L* (34.0-46.0) % RDW 17.2 H (11.5-15.5) % Plt Count 11 L* (150-450) k/uL Haptoglobin (31.2-198.0) mg/dL Chloride 110 H (98-107) mmol/L BUN 33 H (7-17) mg/dL Glucose 158 H (74-99) mg/dL POC Glucose (mg/dL) 187 H (75-99) mg/dL Calcium 7.5 L (8.4-10.2) mg/dL Total Bilirubin 4.6 H (0.2-1.3) mg/dL Total Protein 4.9 L (6.3-8.2) g/dL Albumin 2.5 L (3.5-5.0) g/dL 05/06/19 05/06/19 Range/Units 11:42 16:53 WBC (3.8-10.6) k/uL RBC (3.80-5.40) m/uL Hgb (11.4-16.0) gm/dL Hct (34.0-46.0) % RDW (11.5-15.5) % Plt Count (150-450) k/uL Haptoglobin (31.2-198.0) mg/dL Chloride (98-107) mmol/L BUN (7-17) mg/dL Glucose (74-99) mg/dL POC Glucose (mg/dL) 222 H 200 H (75-99) mg/dL Calcium (8.4-10.2) mg/dL Total Bilirubin (0.2-1.3) mg/dL Total Protein (6.3-8.2) g/dL Albumin (3.5-5.0) g/dL Microbiology - Last 24 Hours (Table) 05/03/19 19:08 Blood Culture - Preliminary Blood No Growth after 48 hours 05/03/19 19:08 Blood Culture - Preliminary Blood No Growth after 48 hours Assessment and Plan Assessment: 1. Severe acute on chronic anemia, due to acute hemolysis as well as chemotherapy 2. Chemotherapy induced pancytopenia 3. Sepsis due to HCAP in severely neutropenic pt 4. Angiolymphoblastic lymphoma 5. Fluid overload Plan: Ms. Galvan is a very pleasant 68-year-old female with a history of recently diagnosed angioimmunoblastic lymphoma status post first cycle of chemotherapy a couple weeks ago who is here for severe shortness of breath and weakness, found to have a hemoglobin of 3.4. She presented a couple weeks ago with hemolytic anemia due to her lymphoma. She received her first cycle of chemotherapy with EPOCH and was discharged on 05/01/19 with hemoglobin in the sevens. Presented back on 05/03/19 with hemoglobin in the 3-4 range, ANC of 0, platelets around 10. She has received several units of blood transfusion and has been on pulse Decadron. Hemoglobin currently relatively stable around 6, platelets continue to remain above 10. Pancytopenia due to chemotherapy. Continues to be neutropenic. On antibiotics for possible pneumonia in the setting of severe ne utropenia. Continue antibiotics. Continue pulse Decadron. Supportive transfusion to maintain hemoglobin above 6, and closer to 7 if symptomatic. Platelet transfusion to maintain platelets above 10 or if bleeding. Limit blood draws if possible. Check daily CBCs and will need to monitor her LDH and haptoglobin and bilirubin every 2-3 days. Patient and her also had several questions about overall prognosis. Discussed this in great detail with them. Time with Patient: Greater than 30 (>30 spent on pt care and >50% of time was spent with pt and family for [id number] counseling.)
[2019-05-07] MEDS: CEFEPIME 2 GM in SODIUM CHLORIDE 0.9% 100 ML IVPB SCH ×4 (00:28→23:58)
[2019-05-07] MEDS: DEXAMETHASONE SOD PHOS (MDV) 100 MG/10 ML VIAL IVP SCH ×5 (00:28→23:58)
[2019-05-07] MEDS: metFORMIN 500 MG TAB PO SCH ×2 (07:00→17:40)
[2019-05-07] MEDS: REPAGLINIDE 1 MG TAB PO SCH ×3 (07:00→17:40)
[2019-05-07] MEDS: INSULIN ASPART (NovoLOG) 100 UNIT/ML VIAL SQ SCH ×3 (07:00→17:33)
[2019-05-07] MEDS: LEVOTHYROXINE 50 MCG TAB PO SCH (07:00)
[2019-05-07 07:07] LABS: Glucose,Whole Blood 187 mg/dL (75-99)
[2019-05-07 07:29] LABS: Anisocytosis Slight; MCH 30.4 pg (25.0-35.0); MCHC 34.1 g/dL (31.0-37.0); MCV 89.1 fL (80.0-100.0); Mean Platelet Volume 12.4; RBC 1.98 m/uL (3.80-5.40); RDW 17.1 % (11.5-15.5); WBC 1.6 k/uL (3.8-10.6)
[2019-05-07 07:57] LABS: HCT 17.6 % (34.0-46.0)
[2019-05-07 07:58] LABS: ALT 28 U/L (4-34); AST 20 U/L (14-36); African American GFR (CKD) >90 (>60 ml/min/1.73 sqM); Albumin 2.6 g/dL (3.5-5.0); Alkaline Phosphatase 64 U/L (38-126); Anion Gap 5 mmol/L; Blood Urea Nitrogen 32 mg/dL (7-17); Calcium 7.7 mg/dL (8.4-10.2); Carbon Dioxide 24 mmol/L (22-30); Chloride 110 mmol/L (98-107); Glucose 171 mg/dL (74-99); Non-African American GFR(CKD) >90 (>60 ml/min/1.73 sqM); Platelet Count 22 k/uL (150-450); Potassium 4.3 mmol/L (3.5-5.1); Sodium 139 mmol/L (137-145); Total Bilirubin 3.3 mg/dL (0.2-1.3); Total Protein 5.1 g/dL (6.3-8.2)
[2019-05-07] MEDS: SODIUM CHLORIDE 0.9% 1,000 ML IV SCH (08:45)
[2019-05-07] MEDS: FUROSEMIDE 10 MG/ML 4 ML VIAL IV SCH ×3 (08:46→23:58)
[2019-05-07] MEDS: PANTOPRAZOLE 40 MG TABLET PO SCH (08:46)
[2019-05-07] MEDS: SPIRONOLACTONE 25 MG TAB PO SCH (08:46)
[2019-05-07] MEDS: VENLAFAXINE HCL 75 MG TAB PO SCH (08:46)
[2019-05-07] MEDS: VANCOMYCIN 1,750 MG in SODIUM CHLORIDE 0.9% 500 ML 500 ML IVPB SCH ×2 (08:46→20:27)
--- NOTE | 2019-05-07 11:34 | P.PN ---
Subjective Progress Note Date: 05/07/19 Principal diagnosis: Chemotherapy-induced pancytopenia and acute hemolytic anemia This is a 68-year-old female recently diagnosed with angioimmunoblastic T-cell lymphoma presented mostly with generalized lymphadenopathy and bone marrow involvement with one episode of tumor lysis syndrome. Her diagnosis was made by biopsy of a right sided supraclavicular lymph node. Patient was recently in the hospital, and she was treated for tumor lysis syndrome and pancytopenia. She received aggressive course of chemotherapy during her hospital stay, and she was discharged home on 04/30/2019. Patient presented to the ER yesterday, 3 days after discharge from the hospital mostly with complaints of weakness. She was also noting yellow discoloration. She had no nausea or vomiting, no abdominal pain, she had no cough no wheezing no fever no chills no hemoptysis, she was just feeling generally weak. Workup in the ER showed a WBC count of 0.4, hemoglobin 4.7, and her hemoglobin was 7.7 on 04/30. She was also noted to have low platelets at 22,000. Lactic acid was noted to be 2.3, total bilirubin was noted to be up to 6.5 from 4.1 few days ago, alkaline phosphatase of 58, and LDH of 584 Calcium was 7.5. Reticulocyte count of 0.2. Chest x-ray showed evidence of right sided pleural effusion, and right lower lobe atelectasis and/or consolidation. Patient was admitted to the intensive care unit, started empirically on vancomycin and cefepime. Cultures are all pending. Fluids were given. And blood transfusion was ordered however it seems to be difficult to find compatible blood for this patient, and the process of blood transfusion is pending. Considering the patient was admitted to the ICU, I was asked to see her on consultation Reevaluated today on 05/05/2019, patient remains in the intensive care units. Hemodynamically stable, on room air, denies any shortness of breath, no cough no wheezing and no chest pain. Patient is sitting at a bedside chair, seems to be quite comfortable. She received so far a total of 5 units of packed RBCs for her profound anemia which was felt to be hemolytic in nature. Hemoglobin today is 6.2. Platelets remained low at 14,000. WBC count is 0.1. Basic metabolic profile is normal. Chest x-ray showed slight improvement in her right pleural effusion and right lower lobe atelectasis/infiltrate. Ultrasound of the abdomen showed moderate ascites. Patient remains on diuretics, and the dose was increased to Lasix 20 mg every 12 hours. Blood cultures remain negative so far from admission. Reevaluated today on 05/06/2019, patient remains in the ICU, remains on room air, hemoglobin is 6.2 today, however the patient is relatively asymptomatic. WBC count remains low, platelets remained low, patient isn't responding well to diuretics, remains on broad-spectrum antibiotics. No major international exchange coordinator the last 24 hours. Patient did receive a total of 5 units of packed RBCs since admission, and her hemoglobin today is 6.2 platelets are 11,000. Basic metabolic profile and renal profile remained relatively normal. Reevaluated today on 05/07/2019, remains in the ICU, comfortable, on room air, in no distress, hemoglobin today is 6.0, platelets remained low, however WBC count is up to 1.6. Patient remains on diuretics, she has good urine output, and her overall anasarca seems to be improving. Remains on broad-spectrum antibiotics, cultures remain negative. Patient is being followed closely by hematology/oncology, and may or may not transfuse the patient with a unit of packed RBCs today this will be decided upon by hematology. So far the patient received a total of 5 units of packed RBCs since admission Objective - Vital Signs Vital signs: Vital Signs Temp 97.7 F 05/07/19 08:00 Pulse 95 05/07/19 11:00 Resp 21 05/07/19 11:00 BP 126/74 05/07/19 11:00 Pulse Ox 97 05/07/19 11:00 Intake & Output 05/06/19 05/07/19 05/07/19 18:59 06:59 18:59 Intake Total 1000 1041 650 Output Total 1800 1750 200 Balance -800 -709 450 Weight 112.7 kg 111.6 kg Intake: IV 1000 801 650 Cefepime 2 gm In Sodium 200 100 50 Chloride 0.9% 100 ml @ 200 mls/hr IVPB Q8HR [facility] Rx#:[id number] Sodium Chloride 0.9% 1, 300 200 100 000 ml @ 25 mls/hr IV . Q24H [facility] Rx#:[id number] Vancomycin 1,750 mg In 500 501 500 Sodium Chloride 0.9% 500 ml 500 ml @ 167 mls/hr IVPB Q12H [facility] Rx#: [id number] Oral 240 Output: Urine 1800 1750 200 Other: Voiding Method Bedside Commode Bedside Commode Bedside Commode # Voids 0 1 # Bowel Movements 1 - Exam General appearance: Revealed a 68-year-old female, on room air, in no distress. Head exam: Atraumatic, normocephalic. Eye exam: . PERRLA, EOMI, positive icterus.. ENT exam: Moist mucous membranes no neck masses, no JVD. Positive cervical adenopathy. Neck exam: Positive right posterior cervical lymphadenopathy noted. Respiratory exam: Symmetrical chest expansion, clear breath sound bilaterally no crackles or rhonchi or wheezes. Extremities exam: 3+ bipedal edema, good pulses bilaterally. Neurological exam: Alert oriented 3, no gross focal deficits. Psychiatric exam: Normal mood blunt affect normal mental status examination Skin exam: Jaundiced no petechiae, no rashes - Labs CBC & Chem 7: 05/07/19 07:10 05/07/19 07:10 Labs: Abnormal Lab Results - Last 24 Hours (Table) 05/06/19 05/06/19 05/06/19 Range/Units 11:42 16:53 20:43 WBC (3.8-10.6) k/uL RBC (3.80-5.40) m/uL Hgb (11.4-16.0) gm/dL Hct (34.0-46.0) % RDW (11.5-15.5) % Chloride (98-107) mmol/L BUN (7-17) mg/dL Glucose (74-99) mg/dL POC Glucose (mg/dL) 222 H 200 H 228 H (75-99) mg/dL Calcium (8.4-10.2) mg/dL Total Bilirubin (0.2-1.3) mg/dL Total Protein (6.3-8.2) g/dL Albumin (3.5-5.0) g/dL 05/07/19 05/07/19 05/07/19 Range/Units 06:56 07:10 07:10 WBC 1.6 L (3.8-10.6) k/uL RBC 1.98 L (3.80-5.40) m/uL Hgb 6.0 L* (11.4-16.0) gm/dL Hct 17.6 L* (34.0-46.0) % RDW 17.1 H (11.5-15.5) % Chloride 110 H (98-107) mmol/L BUN 32 H (7-17) mg/dL Glucose 171 H (74-99) mg/dL POC Glucose (mg/dL) 187 H (75-99) mg/dL Calcium 7.7 L (8.4-10.2) mg/dL Total Bilirubin 3.3 H (0.2-1.3) mg/dL Total Protein 5.1 L (6.3-8.2) g/dL Albumin 2.6 L (3.5-5.0) g/dL Microbiology - Last 24 Hours (Table) 05/03/19 19:08 Blood Culture - Preliminary Blood No Growth after 72 hours 05/03/19 19:08 Blood Culture - Preliminary Blood No Growth after 72 hours Assessment and Plan Assessment: Impression: 1 chemotherapy induced pancytopenia, 2 recurrent anemia, acute hemolytic in nature , also related to bone marrow suppression. Secondary to chemotherapy at 3 neutropenic sepsis, has the patient will be continued on empiric broad- spectrum antibiotics. 4 possible right lower lobe pneumonia with parapneumonic effusion, continue broad-spectrum antibiotics follow-up chest x-ray in a.m.. 5 history of of tumor lysis syndrome, noted on her last admission/resolved 6 history of breast cancer and previous lumpectomy 7 multiple comorbidities including hypertension, hyperlipidemia, hypothyroidism, and type 2 diabetes. 8 angioimmunoblastic T-cell lymphoma 9 ascites Recommendation: Continue to monitor hemoglobin, and transfuse accordingly, hematology to decide on transfusion as needed. Continue antibiotics in the form of vancomycin and cefepime Continue Decadron patient is at 10 mg IV push every 6 hours. continue Lasix, added Aldactone 25 mg by mouth twice a day Resume home meds, continue to hold statins Continue to monitor closely in the ICU. Prognosis is definitely guarded. Will follow in the ICU Time with Patient: Less than 30
[2019-05-07 11:53] LABS: Glucose,Whole Blood 179 mg/dL (75-99)
[2019-05-07 13:39] LABS: Band Neutrophils % 18 %; Lymphocytes # (M) 0.06 k/uL (1.0-4.8); Metamyelocytes # (M) 0.16 k/uL (0); Metamyelocytes % 10 %; Monocytes # (M) 0.16 k/uL (0-1.0); Myelocytes # (M) 0.06 k/uL (0); Myelocytes % 4 %; Neutrophils % (M) 54 %; Nucleated Red Blood Cells 0 /100 WBC (0-0); Total Cells Counted 100
[2019-05-07 13:40] LABS: Large Platelets Present; Poikilocytosis (M) Present
--- NOTE | 2019-05-07 15:31 | P.PN ---
Subjective Progress Note Date: 05/07/19 This is a 68-year-old female patient Dr Gaffney with a previous medical history significant for new diagnosed angioimmunoblastic T-cell lymphoma which was diagnosed 04/25/2019, along with tumor lysis syndrome, hypertension and hypertensive cardiovascular disease, hyperlipidemia, new diagnosis of diabetes mellitus type 2, history of breast cancer status post right lumpectomy with radiation therapy, diverticulosis, hypothyroidism, was started on chemotherapy Cytoxan, etoposide and prednisone. She was discharged to home 04/30/2019, with a total bili of 4.1 comes in to the emergency room with significant jaundice of 2 days' duration, increasing weakness, and severe anemia. Diminished appetite, increasing abdominal distention, and increasing dependent edema legs patient denies any palpitations or chest pain or pleurisy, no melena and hematochezia Emergency room, she has a WBC count of 0.2, hemoglobin 4.7, platelet count of 22 INR of 1.2, creatinine 0.5, total bilirubin of 6.5 from a previous number of 4.12 days ago.. Patient admitted to the ICU secondary to severe anemia and ja undice, this could be related to out to immune hemolytic anemia, oncology is on consult, Dr. Patrick is on consult for pulmonary medicine 2 units of packed red blood cells irradiated blood is currently being infused, possibility of right lower lobe pneumonia and parapneumonic effusion, started on IV antibiotic 05/05: Patient is still in ICU, feels more short of breath, hemoglobin currently is at 6.2, platelet count of 14, 7.1, patient has no shortness of breath or palpitations, still has diminished appetite, vital signs are stable in ICU, ultrasound shows moderate ascites, has dependent edema with anasarca will going to transfuse 1 unit of packed red blood cells irradiated blood, along with increase in the furosemide to 20 mg every 12 hours. Caution for hypotension, as her protein stores are low, with ongoing sepsiswill going to transfuse 1 unit of packed red blood cells irradiated blood, along with decrease in the torsemide to 20 mg every 12 h we will request dr lord to see her for physcial deconditioning , eval for IP rehab, will request PT OT eval 05/06: Patient remains in ICU, hemoglobin of 6.2, more edema noted today, more abdominal distention today, however she still comfortable with her abdomen, platelet count is still low at 11, no plan for rbc transfusion today per on cology, we'll going to discontinue amlodipine and lisinopril to allow more diuretic use, increase furosemide to 40 mg every 12 hours, continued Aldactone 25, she remains on Prandin, and dexamethasone, blood sugars are between 182-212, creatinine 0.56. Patient does not have any chest pain, no palpitations, no insomnia, she is on supplement 3 times a day at 60 g of protein per day along with her meals, albumin is low at 2.5, blood pressure 110-120 systolic 05/07, patient's demise in ICU, hemoglobin 6.0, still edematous, legs and arms bilaterally, anasarca still, no shortness of breath no palpitations, blood pressure is stable for increasing doses of Lasix adjusted to 40 every 8 hours,, has been off Lotrel patient would have an Conrado wrap today, and 1 unit of packed red blood cells today per oncology, no diarrhea, blood sugars ranging between 179-228, no change in Prandin, bilirubin now lower at 3.3, Review of Systems Constitutional: Reports as per HPI, Reports anorexia, Reports poor appetite Ears, nose, mouth and throat: Reports as per HPI, Denies ant. neck pain, Denies bleeding gums, Denies dental pain, Denies dysphagia, Denies epistaxis, Denies headache, Denies hoarseness, Denies mouth pain, Denies nasal congestion, Denies nasal discharge, Denies neck fullness/pressure, Denies neck lump, Denies nose pain, Denies odynophagia, Denies post-nasal drip, Denies sinus pain, Denies sinus pressure, Denies swelling in mouth, Denies swelling in throat, Denies sore throat, Denies vertigo, Denies voice changes Cardiovascular: Reports as per HPI, Reports leg edema, Denies chest pain, Denies claudication, Denies decreased exercise tolerance, Denies dyspnea on exertion, Denies edema, Denies high blood pressure, Denies irregular heart beat, Denies lightheadedness, Denies orthopnea, Denies palpitations, Denies paroxysmal nocturnal dyspnea, Denies phlebitis, Denies rapid heart beat, Denies shortness of breath, Denies syncope Respiratory: Reports as per HPI, Denies congestion, Denies cough, Denies cough with sputum, Denies dyspnea, Denies excessive sputum, Denies hemoptysis, Denies home oxygen, Denies pain, Denies pain on inspiration, Denies pleurisy, Denies respiratory infections, Denies sleep apnea, Denies snoring, Denies wheezing Gastrointestinal: Reports as per HPI, Reports bloating, Reports loss of appetite Genitourinary: Reports as per HPI, Denies abnormal vaginal bleeding, Denies decreased libido, Denies difficulty conceiving, Denies difficulty voiding, Denies dysmenorrhea, Denies dyspareunia, Denies dysuria, Denies flank pain, Denies genital sores, Denies hematuria, Denies hot flashes, Denies incomplete emptying, Denies kidney stones, Denies menorrhagia, Denies mixed incontinence, Denies nocturia, Denies pelvic pain, Denies post void dribbling, Denies , Denies prolapse symptoms, Denies stress incontinence, Denies urge incontinence, Denies urgency, Denies urinary frequency, Denies vaginal discharge, Denies vaginal dryness, Denies vaginal itching, Denies vaginal odor Menstruation: Reports as per HPI Musculoskeletal: Reports as per HPI Integumentary: Reports as per HPI Neurological: Reports as per HPI Psychiatric: Reports as per HPI, Reports sleep disturbances Endocrine: Reports as per HPI Hematologic/Lymphatic: Reports as per HPI, Denies easy bleeding, Denies easy bruising, Denies lymphadenopathy, Denies lymphedema, Denies thrombophilia Allergic/Immunologic: Reports as per HPI, Denies allergic rhinitis, Denies anaphylaxis, Denies angioedema, Denies gluten intolerance, Denies persistent infections, Denies seasonal allergies, Denies urticaria, Denies wheezing Objective - Vital Signs Vital signs: Vital Signs Temp 97.7 F 05/07/19 08:00 Pulse 95 05/07/19 11:00 Resp 21 05/07/19 11:00 BP 126/74 05/07/19 11:00 Pulse Ox 97 05/07/19 11:00 Intake & Output 05/06/19 05/07/19 05/07/19 18:59 06:59 18:59 Intake Total 1000 1041 650 Output Total 1800 1750 200 Balance -800 -709 450 Weight 112.7 kg 111.6 kg Intake: IV 1000 801 650 Cefepime 2 gm In Sodium 200 100 50 Chloride 0.9% 100 ml @ 200 mls/hr IVPB Q8HR [facility] Rx#:[id number] Sodium Chloride 0.9% 1, 300 200 100 000 ml @ 25 mls/hr IV . Q24H [facility] Rx#:[id number] Vancomycin 1,750 mg In 500 501 500 Sodium Chloride 0.9% 500 ml 500 ml @ 167 mls/hr IVPB Q12H [facility] Rx#: [id number] Oral 240 Output: Urine 1800 1750 200 Other: Voiding Method Bedside Commode Bedside Commode Bedside Commode # Voids 0 1 # Bowel Movements 1 - Constitutional General appearance: Present: cooperative, no acute distress - EENT Eyes: Present: anicteric sclerae, EOMI, PERRLA, dentition normal, normal appearance ENT: Present: NA/AT, normal oropharynx - Respiratory Respiratory: bilateral: CTA, diminished, negative: rales, rhonchi, prolonged expiration, prolonged inspiration - Cardiovascular Rhythm: regular Heart sounds: normal: S1, S2 Abnormal Heart Sounds: Absent: systolic murmur, diastolic murmur, rub, S3 Gallop, S4 Gallop, click, other - Gastrointestinal General gastrointestinal: Present: normal bowel sounds, soft - Integumentary Integumentary: Present: normal, normal turgor - Neurologic Neurologic: Present: CNII-XII intact - Musculoskeletal Musculoskeletal: Present: gait normal, generalized weakness, strength equal bilaterally - Psychiatric Psychiatric: Present: A&O x's 3, appropriate affect, intact judgment & insight - Labs CBC & Chem 7: 05/07/19 07:10 05/07/19 07:10 Labs: Abnormal Lab Results - Last 24 Hours (Table) 05/06/19 05/06/19 05/07/19 Range/Units 16:53 20:43 06:56 WBC (3.8-10.6) k/uL RBC (3.80-5.40) m/uL Hgb (11.4-16.0) gm/dL Hct (34.0-46.0) % RDW (11.5-15.5) % Chloride (98-107) mmol/L BUN (7-17) mg/dL Glucose (74-99) mg/dL POC Glucose (mg/dL) 200 H 228 H 187 H (75-99) mg/dL Calcium (8.4-10.2) mg/dL Total Bilirubin (0.2-1.3) mg/dL Total Protein (6.3-8.2) g/dL Albumin (3.5-5.0) g/dL 05/07/19 05/07/19 05/07/19 Range/Units 07:10 07:10 11:42 WBC 1.6 L (3.8-10.6) k/uL RBC 1.98 L (3.80-5.40) m/uL Hgb 6.0 L* (11.4-16.0) gm/dL Hct 17.6 L* (34.0-46.0) % RDW 17.1 H (11.5-15.5) % Chloride 110 H (98-107) mmol/L BUN 32 H (7-17) mg/dL Glucose 171 H (74-99) mg/dL POC Glucose (mg/dL) 179 H (75-99) mg/dL Calcium 7.7 L (8.4-10.2) mg/dL Total Bilirubin 3.3 H (0.2-1.3) mg/dL Total Protein 5.1 L (6.3-8.2) g/dL Albumin 2.6 L (3.5-5.0) g/dL Microbiology - Last 24 Hours (Table) 05/03/19 19:08 Blood Culture - Preliminary Blood No Growth after 72 hours 05/03/19 19:08 Blood Culture - Preliminary Blood No Growth after 72 hours Assessment and Plan Plan: 1. Severe pancytopenia, recent chemotherapy for T-cell lymphoma with hemolytic anemia, severe jaundice, 2 units packed red blood cell, irradiated, ICU man agement, oncology is following, pulmonary following 2 Angioimmunoblastic T-cell lymphoma) T-cell lymphoma CD30 (final pathologic report with [facility]) due to her malignancy. Oncology consult on chemotherapy and plan for bone marrow transplant in future, chemotherapy initiated with etoposide, doxorubicin, vincristine emanuel 2and cyclophosphamide to be initiated on April 29await hematology oncology input. pathology suggestive angioimmunoblastic T-cell lymphoma started on dexamethasone 10 mg every 6 hours 3. Severe jaundice, unconjugated bilirubin fractionation, suspect hemolytic anemia might need reconsult GI at this time, if worse, hepatitis viral screening negative oncology has been consulted avoid transfusion with incompatible packed red blood cells, IV hydration dexamethasone started 4. Anasarca, with abdominal distention, moderate ascites, worsening davin to edema, increase IV Lasix 40mg every 8 hours, there might be some for titration the future, , start protein supplementation with diet, abdominal ultrasounaluate for ascites shows large pocket left lower quadrant, area, not amenable to abdominal thoracentesis, as platelet count is too low 5 Gram-negative pneumonia possibility, patient is on cefepime, vancomycin pharmacy to dose, Dr. Byrd pulmonary medicine 6. Tumor lysis syndrome hx. Oncology is following. Patient is status post Elite[employer]. 7. Diabetes mellitus type 2, uncontrolled with hyperglycemia secondary to steroids. Continue NovoLog scale and on Prandin 500 mg twice a day, we've titrated postprandial elevation of sugars with Prandin 1 mg 3 times a day, not on long-acting med 8. Hyperlipidemia. Discontinue Crestor for now. Secondary to severe jaundice 9. Hypothyroidism. Continue Synthroid increased to 75 g orally once every day. 10. Diverticulosis. Colonoscopy is up-to-date. 11. Recurrent Depression. Currently on Effexor XR 75 mg orally once every day. 12. DVT prophylaxis. Bilateral knee-high THA hose. 13. GI prophylaxis. Protonix 40 mg IV push every 24 hours. 5 Hypertension and hypertensive cardiovascular disease stable , discontinue amlodipine 5 and lisinopril 40 mg to allow maximizing diuretic use. Lisinopril 40 mg every 12 hours continue Aldactone 25 16. Hepatocellular disease. Ultrasound of the abdomen as above. . Hepatitis panel neg 17. debility with physical deconitioning, start PT OT, consult DR lord 18. Moderate severe protein malnutrition, protein supplementation, Code status: full code.
[2019-05-07 16:47] LABS: Glucose,Whole Blood 158 mg/dL (75-99)
[2019-05-07 20:48] LABS: Glucose,Whole Blood 199 mg/dL (75-99)
[2019-05-08 04:41] LABS: Anisocytosis Slight; MCH 29.5 pg (25.0-35.0); MCHC 33.1 g/dL (31.0-37.0); MCV 89.2 fL (80.0-100.0); Mean Platelet Volume 12.7; RDW 17.2 % (11.5-15.5); Reticulocyte % 0.4 % (0.5-2.0); WBC 10.8 k/uL (3.8-10.6)
[2019-05-08 04:51] LABS: HCT 16.9 % (34.0-46.0); HGB 5.6 gm/dL (11.4-16.0); Platelet Count 35 k/uL (150-450)
[2019-05-08 04:56] LABS: ALT 29 U/L (4-34); AST 23 U/L (14-36); African American GFR (CKD) >90 (>60 ml/min/1.73 sqM); Albumin 2.6 g/dL (3.5-5.0); Alkaline Phosphatase 81 U/L (38-126); Anion Gap 8 mmol/L; Blood Urea Nitrogen 33 mg/dL (7-17); Calcium 7.9 mg/dL (8.4-10.2); Carbon Dioxide 24 mmol/L (22-30); Chloride 108 mmol/L (98-107); Glucose 189 mg/dL (74-99); Non-African American GFR(CKD) 89 (>60 ml/min/1.73 sqM); Potassium 4.5 mmol/L (3.5-5.1); Sodium 140 mmol/L (137-145); Total Bilirubin 2.6 mg/dL (0.2-1.3); Total Protein 4.9 g/dL (6.3-8.2)
[2019-05-08] MEDS: SODIUM CHLORIDE 0.9% 1,000 ML IV SCH (05:04)
[2019-05-08 05:43] LABS: Band Neutrophils % 45 %; Lymphocytes # (M) 0.43 k/uL (1.0-4.8); Monocytes # (M) 1.19 k/uL (0-1.0); Neutrophils % (M) 40 %; Nucleated Red Blood Cells 0 /100 WBC (0-0); Promyelocytes # (M) 0.11 k/uL (0); Promyelocytes % 1 %; Total Cells Counted 200
--- NOTE | 2019-05-08 06:03 | P.CONS ---
History of Present Illness - Chief Complaint Medical debility - History of Present Illness I had the opportunity to see patient for inpatient rehab consultation with regard to medical debility. Patient admitted to [facility] April 23 with known T-cell lymphoma status post chemotherapy recently discharged from hospital 3 days. Admitted with weakness, pneumonia sepsis for which is seen by Dr. Matthews and Giovany. Chest x-rays followed for right lower lobe infiltrate versus atelectasis and cardiomegaly. Abdominal ultrasound demonstrates a sinus and a pocket in the right lower lobe. PT reports two-person assistance for mobility transfers and gait for 100 feet hand-held assist. OT reports supervision for upper dressing and minimal assistance for lower dressing, bathing, toileting functional mobility, 05/05. Previous functional history as elicited from patient: 68-year-old right-handed white female who is lives in one floor home with . Retired. Patient and parent with cooking, laundry, driving, standing shower and gait without device. Dr. Gaffney is regular doctor. Denies tobacco or alcohol. Family history father with SD. Review of Systems Review of systems: ENT: Denies sneezes or discharge. Eyes: Denies discharge or photophobia. Cardiac: Denies chest pain or palpitation. Pulmonary: Denies cough or shortness of breath. Breast: Denies discharge or lumps. Gastrointestinal: Denies nausea, emesis, constipation, diarrhea. Genitourinary: Denies discharge or frequency. Musculoskeletal: Denies muscle or bone aches. Neurologic: Generalized weakness. Endocrine: Denies shakes or sweats. Oncology: Denies cancers. Dermatologic: Denies rash, itching, pruritus. ALLERGY/immunology: Denies sneezes, rashes. Past Medical History Past Medical History: Cancer, Diabetes Mellitus, Hyperlipidemia, Hypertension, Thyroid Disorder Additional Past Medical History / Comment(s): Pt states she was told 04/18/19 that she has lymphoma-no treatment plan yet, recent hands/legs/feet edema, 2009 R breast cancer with lumpectomy and radiation treatments, NIDDM type II, hypothyroid, diverticular disease History of Any Multi-Drug Resistant Organisms: None Reported Past Surgical History: Breast Surgery, Section, Hysterectomy Additional Past Surgical History / Comment(s): 04/12/19 R supraclavicular lymph node core biopsy, right breast lumpectomy, colonoscopy Past Anesthesia/Blood Transfusion Reactions: No Reported Reaction Past Psychological History: No Psychological Hx Reported Additional Psychological History / Comment(s): Pt resides with her spouse. She is independent. She states lately though, she has not been driving, her spouse has been doing the driving. Smoking Status: Never smoker Past Alcohol Use History: Rare Past Drug Use History: None Reported - Past Family History Father Family Medical History: Myocardial Infarction (SD) Additional Family Medical History / Comment(s): SD times 2-first SD at the age of 35yrs and from 2nd SD at the age of age 52 Mother Family Medical History: Cancer Additional Family Medical History / Comment(s): Mother of pancreatic cancer in her 70s. Brother(s) History Unknown: Yes Sister(s) Family Medical History: Cancer Daughter(s) Family Medical History: No Reported History Son(s) Family Medical History: No Reported History Medications and Allergies Home Medications Medication Instructions Recorded Confirmed Type amLODIPine BESYLATE/BENAZEPRIL 1 cap PO DAILY 10/09/13 05/03/19 History [Lotrel 5-40 mg Capsule] Levothyroxine Sodium [Levoxyl] 50 mcg PO DAILY 04/03/19 05/03/19 History Rosuvastatin Calcium [Crestor] 5 mg PO DAILY 04/03/19 05/03/19 History metFORMIN HCL [Glucophage] 500 mg PO BID 04/03/19 05/03/19 History Ibuprofen [Motrin] 800 mg PO TID PRN 04/19/19 05/03/19 History Venlafaxine HCl [Effexor] 75 mg PO DAILY 04/19/19 05/03/19 History Loratadine [Claritin] 10 mg PO DAILY 05/03/19 05/03/19 History Allergies Allergy/AdvReac Type Severity Reaction Status Date / Time Penicillins Allergy Unknown Rash/Hives Verified 05/03/19 18:03 Physical Exam Vitals: Vital Signs Temp Pulse Resp BP Pulse Ox 05/08/19 05:40 98.6 F 89 14 103/63 94 L 05/08/19 05:10 98.3 F 91 14 99/59 95 05/08/19 05:00 97.8 F 92 14 106/61 93 L 05/08/19 04:00 97.7 F 86 16 110/60 92 L 05/08/19 03:00 89 18 109/66 92 L 05/08/19 02:00 89 19 129/73 92 L 05/08/19 01:00 104 H 18 122/68 95 05/08/19 00:00 98.1 F 96 16 117/71 93 L 05/07/19 23:00 96 20 125/61 94 L 05/07/19 22:00 98 16 120/67 95 05/07/19 21:00 97 13 124/66 95 05/07/19 20:00 98.9 F 94 16 113/63 97 05/07/19 19:00 96 17 116/65 95 05/07/19 18:00 105 H 23 110/69 96 05/07/19 17:00 91 11 L 120/66 94 L 05/07/19 16:00 97.6 F 96 13 105/65 97 05/07/19 15:01 91 13 124/66 05/07/19 14:00 105 H 13 115/66 96 05/07/19 13:00 92 16 108/63 97 05/07/19 12:00 97.8 F 92 19 108/53 95 05/07/19 11:00 95 21 126/74 97 05/07/19 10:00 89 15 123/64 96 05/07/19 09:00 96 16 121/75 96 05/07/19 08:00 97.7 F 94 13 117/71 95 05/07/19 07:00 98 21 114/70 93 L 05/07/19 06:00 89 25 H 118/75 95 Intake and Output 05/07/19 05/07/19 05/08/19 14:59 22:59 06:59 Intake Total 750 800 585 Output Total 600 2000 800 Balance 150 -1200 -215 Intake: IV 750 800 275 Cefepime 2 gm In Sodium 50 100 100 Chloride 0.9% 100 ml @ 200 mls/hr IVPB Q8HR [facility] Rx#:[id number] Sodium Chloride 0.9% 1, 200 200 175 000 ml @ 25 mls/hr IV . Q24H [facility] Rx#:[id number] Vancomycin 1,750 mg In 500 500 Sodium Chloride 0.9% 500 ml 500 ml @ 167 mls/hr IVPB Q12H [facility]I Rx#: [id number] Blood Product 310 Rc Irr As1 Unit 0 [id number] Output: Urine 600 2000 800 Other: Voiding Method Bedside Commode Bedside Commode Bedside Commode Weight 109.5 kg Skin: Good color, texture, turgor. General: Obese build and comfortable appearance. Head: Normocephalic, atraumatic. Eyes: Symmetric. Pupils equal round. Ears: Symmetric. Hearing within normal limits. Mouth: Clear. Neck: Supple. Carotid without bruit. Cardiac: Regular rate and rhythm. Lungs: Clear anteriorly and posteriorly. Abdomen: Soft active nontender overweight. Extremities: Normal tone. Overweight. Neurological: Mental status: Alert, cooperative, pleasant. Cranial nerves: Symmetric facial tone and trapezius. Motor: Active movement all 4 limbs. Arms are about antigravity in legs less than antigravity. Sensation: Intact throughout. DTRs: Symmetric and equal throughout. Mobility: Requires assistance for mobility. Results CBC & Chem 7: 05/08/19 04:30 05/08/19 04:30 Labs: Abnormal Lab Results - Last 24 Hours (Table) 05/07/19 05/07/19 05/07/19 Range/Units 06:56 07:10 07:10 WBC 1.6 L (3.8-10.6) k/uL RBC 1.98 L (3.80-5.40) m/uL Hgb 6.0 L* (11.4-16.0) gm/dL Hct 17.6 L* (34.0-46.0) % RDW 17.1 H (11.5-15.5) % Plt Count 22 L D (150-450) k/uL Neutrophils # (Manual) 1.10 L (1.3-7.7) k/uL Lymphocytes # (Manual) 0.06 L (1.0-4.8) k/uL Monocytes # (Manual) (0-1.0) k/uL Metamyelocytes # (Man) 0.16 H (0) k/uL Myelocytes # (Manual) 0.06 H (0) k/uL Promyelocytes # (Man) (0) k/uL Retic Count (0.5-2.0) % Chloride 110 H (98-107) mmol/L BUN 32 H (7-17) mg/dL Glucose 171 H (74-99) mg/dL POC Glucose (mg/dL) 187 H (75-99) mg/dL Calcium 7.7 L (8.4-10.2) mg/dL Total Bilirubin 3.3 H (0.2-1.3) mg/dL Total Protein 5.1 L (6.3-8.2) g/dL Albumin 2.6 L (3.5-5.0) g/dL Crossmatch 05/07/19 05/07/19 05/07/19 Range/Units 10:58 11:42 16:36 WBC (3.8-10.6) k/uL RBC (3.80-5.40) m/uL Hgb (11.4-16.0) gm/dL Hct (34.0-46.0) % RDW (11.5-15.5) % Plt Count (150-450) k/uL Neutrophils # (Manual) (1.3-7.7) k/uL Lymphocytes # (Manual) (1.0-4.8) k/uL Monocytes # (Manual) (0-1.0) k/uL Metamyelocytes # (Man) (0) k/uL Myelocytes # (Manual) (0) k/uL Promyelocytes # (Man) (0) k/uL Retic Count (0.5-2.0) % Chloride (98-107) mmol/L BUN (7-17) mg/dL Glucose (74-99) mg/dL POC Glucose (mg/dL) 179 H 158 H (75-99) mg/dL Calcium (8.4-10.2) mg/dL Total Bilirubin (0.2-1.3) mg/dL Total Protein (6.3-8.2) g/dL Albumin (3.5-5.0) g/dL Crossmatch See Detail 05/07/19 05/08/19 05/08/19 Range/Units 20:37 04:30 04:30 WBC 10.8 H (3.8-10.6) k/uL RBC 1.90 L (3.80-5.40) m/uL Hgb 5.6 L* (11.4-16.0) gm/dL Hct 16.9 L* (34.0-46.0) % RDW 17.2 H (11.5-15.5) % Plt Count 35 L D (150-450) k/uL Neutrophils # (Manual) 9.10 H (1.3-7.7) k/uL Lymphocytes # (Manual) 0.43 L (1.0-4.8) k/uL Monocytes # (Manual) 1.19 H (0-1.0) k/uL Metamyelocytes # (Man) (0) k/uL Myelocytes # (Manual) (0) k/uL Promyelocytes # (Man) 0.11 H (0) k/uL Retic Count 0.4 L (0.5-2.0) % Chloride 108 H (98-107) mmol/L BUN 33 H (7-17) mg/dL Glucose 189 H (74-99) mg/dL POC Glucose (mg/dL) 199 H (75-99) mg/dL Calcium 7.9 L (8.4-10.2) mg/dL Total Bilirubin 2.6 H (0.2-1.3) mg/dL Total Protein 4.9 L (6.3-8.2) g/dL Albumin 2.6 L (3.5-5.0) g/dL Crossmatch Microbiology - Last 24 Hours (Table) 05/03/19 19:08 Blood Culture - Preliminary Blood No Growth after 96 hours 05/03/19 19:08 Blood Culture - Preliminary Blood No Growth after 96 hours Assessment and Plan (1) Angioimmunoblastic T-cell lymphoma Current Visit: Yes Status: Acute Priority: High Code(s): C86.5 - ANGIOIMMUNOBLASTIC T-CELL LYMPHOMA SNOMED Code(s): 849103919 (2) Generalized weakness Current Visit: Yes Status: Acute Priority: High Code(s): R53.1 - WEAKNESS SNOMED Code(s): 94230367 Plan: Impression: 1. Medical debility. 2. T-cell lymphoma. 3. Hemolytic anemia. 4. Morbid obesity. 5. Hypertension. 6. Diabetes. Parkinson plan: At this time PT and OT are ongoing. Unsure patient had decline over weekend and will require updated therapy notes today. Have discussed possible inpatient rehab with patient.
[2019-05-08] MEDS: LEVOTHYROXINE 50 MCG TAB PO SCH (06:43)
[2019-05-08] MEDS: metFORMIN 500 MG TAB PO SCH ×2 (06:43→17:52)
[2019-05-08] MEDS: REPAGLINIDE 1 MG TAB PO SCH (06:44)
[2019-05-08] MEDS: INSULIN ASPART (NovoLOG) 100 UNIT/ML VIAL SQ SCH ×3 (06:44→17:51)
[2019-05-08 06:52] LABS: Glucose,Whole Blood 198 mg/dL (75-99)
[2019-05-08] MEDS ORDERED: VANCOMYCIN TROUGH DUE 1 EACH MISC MISCELLANE ONE (07:00)
[2019-05-08] MEDS: PANTOPRAZOLE 40 MG TABLET PO SCH (09:18)
[2019-05-08] MEDS: SPIRONOLACTONE 25 MG TAB PO SCH (09:18)
[2019-05-08] MEDS: VENLAFAXINE HCL 75 MG TAB PO SCH (09:18)
[2019-05-08] MEDS: FUROSEMIDE 10 MG/ML 4 ML VIAL IV SCH ×3 (09:18→23:02)
[2019-05-08] MEDS: VANCOMYCIN 1,750 MG in SODIUM CHLORIDE 0.9% 500 ML 500 ML IVPB SCH ×2 (09:19→13:35)
[2019-05-08] MEDS: CEFEPIME 2 GM in SODIUM CHLORIDE 0.9% 100 ML IVPB SCH ×3 (09:19→23:02)
--- NOTE | 2019-05-08 11:01 | P.PN ---
Subjective Progress Note Date: 05/08/19 Principal diagnosis: Chemotherapy-induced pancytopenia and acute hemolytic anemia This is a 68-year-old female recently diagnosed with angioimmunoblastic T-cell lymphoma presented mostly with generalized lymphadenopathy and bone marrow involvement with one episode of tumor lysis syndrome. Her diagnosis was made by biopsy of a right sided supraclavicular lymph node. Patient was recently in the hospital, and she was treated for tumor lysis syndrome and pancytopenia. She re ceived aggressive course of chemotherapy during her hospital stay, and she was discharged home on 04/30/2019. Patient presented to the ER yesterday, 3 days after discharge from the hospital mostly with complaints of weakness. She was also noting yellow discoloration. She had no nausea or vomiting, no abdominal pain, she had no cough no wheezing no fever no chills no hemoptysis, she was just feeling generally weak. Workup in the ER showed a WBC count of 0.4, hemoglobin 4.7, and her hemoglobin was 7.7 on 04/30. She was also noted to have low platelets at 22,000. Lactic acid was noted to be 2.3, total bilirubin was noted to be up to 6.5 from 4.1 few days ago, alkaline phosphatase of 58, and LDH of 584 Calcium was 7.5. Reticulocyte count of 0.2. Chest x-ray showed evidence of right sided pleural effusion, and right lower lobe atelectasis and/or consolidation. Patient was admitted to the intensive care unit, started empirically on vancomycin and cefepime. Cultures are all pending. Fluids were given. And blood transfusion was ordered however it seems to be difficult to find compatible blood for this patient, and the process of blood transfusion is pending. Considering the patient was admitted to the ICU, I was asked to see her on consultation Reevaluated today on 05/05/2019, patient remains in the intensive care units. Hemodynamically stable, on room air, denies any shortness of breath, no cough no wheezing and no chest pain. Patient is sitting at a bedside chair, seems to be quite comfortable. She received so far a total of 5 units of packed RBCs for her profound anemia which was felt to be hemolytic in nature. Hemoglobin today is 6.2. Platelets remained low at 14,000. WBC count is 0.1. Basic metabolic profile is normal. Chest x-ray showed slight improvement in her right pleural effusion and right lower lobe atelectasis/infiltrate. Ultrasound of the abdomen showed moderate ascites. Patient remains on diuretics, and the dose was increased to Lasix 20 mg every 12 hours. Blood cultures remain negative so far from admission. Reevaluated today on 05/06/2019, patient remains in the ICU, remains on room air, hemoglobin is 6.2 today, however the patient is relatively asymptomatic. WBC count remains low, platelets remained low, patient isn't responding well to diuretics, remains on broad-spectrum antibiotics. No major environmental change analyst the last 24 hours. Patient did receive a total of 5 units of packed RBCs since admission, and her hemoglobin today is 6.2 platelets are 11,000. Basic metabolic profile and renal profile remained relatively normal. Reevaluated today on 05/07/2019, remains in the ICU, comfortable, on room air, in no distress, hemoglobin today is 6.0, platelets remained low, however WBC count is up to 1.6. Patient remains on diuretics, she has good urine output, and her overall anasarca seems to be improving. Remains on broad-spectrum antibiotics, cultures remain negative. Patient is being followed closely by hematology/oncology, and may or may not transfuse the patient with a unit of packed RBCs today this will be decided upon by hematology. So far the patient received a total of 5 units of packed RBCs since admission On 05/08/2019 patient seen in follow-up in the intensive care unit, she is resting comfortably in bed, she is currently on room air with a pulse ox of 93- 98%, she is afebrile, hemodynamically stable, she is on IV maintenance fluids of 0.9 normal saline at a rate of 25 ML per hour. Today's chest x-ray has been reviewed showing right lower lobe infiltrate versus atelectasis and associated pleural effusion. She remains on IV Lasix at 40 mg every 8 hours, and empiric antibiotics in the form of vancomycin and cefepime. Blood cultures have shown no growth, no cough or congestion, no convincing chest pain, Flovent status is improving, patient is in -1330 mL fluid balance over the last 24 hours. Today's labs have been reviewed, showing white blood cell count of 10.8, hemoglobin of 5.6, platelet count of 35, sodium is 140, potassium is 4.5, chloride is 108, BUN of 33, creatinine 0.71. Still has edema involving upper and lower extremities, but no complaints of shortness of breath or palpitations. Patient is receiving 1 unit of packed red blood cells today for hemoglobin of 5.6, no signs of active bleeding right now. Objective - Vital Signs Vital signs: Vital Signs Temp 98.2 F 05/08/19 09:59 Pulse 86 05/08/19 09:59 Resp 18 05/08/19 09:49 BP 124/65 05/08/19 09:59 Pulse Ox 98 05/08/19 09:49 Intake & Output 05/07/19 05/08/19 05/08/19 18:59 06:59 18:59 Intake Total 950 1520 25 Output Total 1300 2500 Balance -350 -980 25 Weight 109.5 kg Intake: IV 950 900 25 Cefepime 2 gm In Sodium 150 100 Chloride 0.9% 100 ml @ 200 mls/hr IVPB Q8HR [facility] Rx#:[id number] Sodium Chloride 0.9% 1, 300 300 25 000 ml @ 25 mls/hr IV . Q24H [facility] Rx#:[id number] Vancomycin 1,750 mg In 500 500 Sodium Chloride 0.9% 500 ml 500 ml @ 167 mls/hr IVPB Q12H [facility] Rx#: [id number] Blood Product 620 0 Rc Irr As1 Unit 0 [id number] Rc Irr As1 Unit 310 [id number] Output: Urine 1300 2500 Other: Voiding Method Bedside Commode Bedside Commode - Exam GENERAL EXAM: Alert, very pleasant, 68-year-old white female, on room air, resting comfortably in bed, generally weak, comfortable in no apparent distress. HEAD: Normocephalic/atraumatic. EYES: Normal reaction of pupils, equal size. Conjunctiva pink, sclera white. NOSE: Clear with pink turbinates. THROAT: No erythema or exudates. NECK: No masses, no JVD, no thyroid enlargement, no adenopathy. CHEST: No chest wall deformity. Symmetrical expansion. LUNGS: Equal air entry with no crackles, wheeze, rhonchi or dullness. CVS: Regular rate and rhythm, normal S1 and S2, no gallops, no murmurs, no rubs ABDOMEN: Soft, nontender. No hepatosplenomegaly, normal bowel sounds, no guarding or rigidity. EXTREMITIES: No clubbing, 1+ upper and lower extremity edema, no cyanosis, 2+ pulses and upper and lower extremities. MUSCULOSKELETAL: Muscle strength and tone normal. SPINE: No scoliosis or deformity SKIN: No rashes CENTRAL NERVOUS SYSTEM: Alert and oriented -3. No focal deficits, tone is normal in all 4 extremities. PSYCHIATRIC: Alert and oriented -3. Appropriate affect. Intact judgment and insight. - Labs CBC & Chem 7: 05/08/19 04:30 05/08/19 04:30 Labs: Abnormal Lab Results - Last 24 Hours (Table) 05/07/19 05/07/19 05/07/19 Range/Units 07:10 10:58 11:42 WBC (3.8-10.6) k/uL RBC (3.80-5.40) m/uL Hgb (11.4-16.0) gm/dL Hct (34.0-46.0) % RDW (11.5-15.5) % Plt Count 22 L D (150-450) k/uL Neutrophils # (Manual) 1.10 L (1.3-7.7) k/uL Lymphocytes # (Manual) 0.06 L (1.0-4.8) k/uL Monocytes # (Manual) (0-1.0) k/uL Metamyelocytes # (Man) 0.16 H (0) k/uL Myelocytes # (Manual) 0.06 H (0) k/uL Promyelocytes # (Man) (0) k/uL Retic Count (0.5-2.0) % Chloride (98-107) mmol/L BUN (7-17) mg/dL Glucose (74-99) mg/dL POC Glucose (mg/dL) 179 H (75-99) mg/dL Calcium (8.4-10.2) mg/dL Total Bilirubin (0.2-1.3) mg/dL Total Protein (6.3-8.2) g/dL Albumin (3.5-5.0) g/dL Crossmatch See Detail 05/07/19 05/07/19 05/08/19 Range/Units 16:36 20:37 04:30 WBC 10.8 H (3.8-10.6) k/uL RBC 1.90 L (3.80-5.40) m/uL Hgb 5.6 L* (11.4-16.0) gm/dL Hct 16.9 L* (34.0-46.0) % RDW 17.2 H (11.5-15.5) % Plt Count 35 L D (150-450) k/uL Neutrophils # (Manual) 9.10 H (1.3-7.7) k/uL Lymphocytes # (Manual) 0.43 L (1.0-4.8) k/uL Monocytes # (Manual) 1.19 H (0-1.0) k/uL Metamyelocytes # (Man) (0) k/uL Myelocytes # (Manual) (0) k/uL Promyelocytes # (Man) 0.11 H (0) k/uL Retic Count 0.4 L (0.5-2.0) % Chloride (98-107) mmol/L BUN (7-17) mg/dL Glucose (74-99) mg/dL POC Glucose (mg/dL) 158 H 199 H (75-99) mg/dL Calcium (8.4-10.2) mg/dL Total Bilirubin (0.2-1.3) mg/dL Total Protein (6.3-8.2) g/dL Albumin (3.5-5.0) g/dL Crossmatch 05/08/19 05/08/19 Range/Units 04:30 06:40 WBC (3.8-10.6) k/uL RBC (3.80-5.40) m/uL Hgb (11.4-16.0) gm/dL Hct (34.0-46.0) % RDW (11.5-15.5) % Plt Count (150-450) k/uL Neutrophils # (Manual) (1.3-7.7) k/uL Lymphocytes # (Manual) (1.0-4.8) k/uL Monocytes # (Manual) (0-1.0) k/uL Metamyelocytes # (Man) (0) k/uL Myelocytes # (Manual) (0) k/uL Promyelocytes # (Man) (0) k/uL Retic Count (0.5-2.0) % Chloride 108 H (98-107) mmol/L BUN 33 H (7-17) mg/dL Glucose 189 H (74-99) mg/dL POC Glucose (mg/dL) 198 H (75-99) mg/dL Calcium 7.9 L (8.4-10.2) mg/dL Total Bilirubin 2.6 H (0.2-1.3) mg/dL Total Protein 4.9 L (6.3-8.2) g/dL Albumin 2.6 L (3.5-5.0) g/dL Crossmatch Microbiology - Last 24 Hours (Table) 05/03/19 19:08 Blood Culture - Preliminary Blood No Growth after 96 hours 05/03/19 19:08 Blood Culture - Preliminary Blood No Growth after 96 hours Assessment and Plan Plan: Assessment: #1. Chemotherapy induced pancytopenia #2. Recurrent anemia, acute hemolytic in nature, also associated with bone marrow suppression secondary to chemotherapy #3. Neutropenic sepsis patient continues on empiric broad-spectrum antibiotics #4. Possible right lower lobe pneumonia with parapneumonic effusion, his chest x-ray shows stable findings of right lower lobe atelectasis/infiltrate with small parapneumonic effusion on the right #5. History of tumor lysis syndrome, noted on her last admission/resolved #6. History of breast cancer previous lumpectomy #7. Multiple comorbidities including hypertension, hyperlipidemia, hypo thyroidism, and type 2 diabetes #8. Angioimmunoblastic T-cell lymphoma #9. Ascites Plan: Patient is receiving another unit of packed red blood cells today for hemoglobin of 5.6, hemodynamically she remains stable, continue with IV diuretics, today's chest x-ray has been reviewed, showing stable right lower lobe infiltrate/atelectasis, with small parapneumonic effusion, no fever or chills, no worsening shortness of breath, still has significant generalized edema. We'll continue broad-spectrum antibiotic, blood cultures remain negative thus far, no significant cough or congestion, no phlegm production, patient will remain in the ICU for close hemodynamic monitoring, we will continue to follow I performed a history & physical examination of the patient and discussed their management with my nurse practitioner, Rosemary Junior. I reviewed the nurse practitioner's note and agree with the documented findings and plan of care. Lung sounds are positive for diminished lung neri. The findings and the impression was discussed with the patient. I attest to the documentation by the nurse practitioner. Time with Patient: Less than 30
--- NOTE | 2019-05-08 11:11 | XR ---
EXAMINATION TYPE: XR chest 1V portable DATE OF EXAM: 05/08/2019 COMPARISON: 05/05/2019 HISTORY: Abnormal x-ray TECHNIQUE: Single frontal view of the chest is obtained. FINDINGS: Heart size stable measures Mediport catheter. No pneumothorax. Right basilar consolidation is slightly improved. Tiny pleural effusion suspected. Linear changes left lung base noted. Osseous structures stable with arthropathy of the left shoulder. IMPRESSION: Bilateral basilar subsegmental atelectasis favored over pneumonia correlate clinically.
[2019-05-08 12:34] LABS: Glucose,Whole Blood 167 mg/dL (75-99)
[2019-05-08] MEDS: MAG HYDROX/AL HYDROX/SIMETH 30 ML, LIDOCAINE VISCOUS 30 ML, diphenhydrAMINE ELIXIR 75 M... PO SCH ×12 (16:05→23:20)
[2019-05-08 17:22] LABS: Glucose,Whole Blood 130 mg/dL (75-99)
[2019-05-08] MEDS: INSULIN NPH 300 UNIT/3 ML VIAL SQ SCH (17:52)
--- NOTE | 2019-05-08 17:54 | P.PN ---
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 She was discharged to home 04/30/2019, with a total bili of 4.1 comes in to the emergency room with significant jaundice of 2 days' duration, increasing weakness, and severe anemia. Diminished appetite, increasing abdominal distention, and increasing dependent edema legs patient denies any palpitations or chest pain or pleurisy, no melena and hematochezia Emergency room, she has a WBC count of 0.2, hemoglobin 4.7, platelet count of 22 INR of 1.2, creatinine 0.5, total bilirubin of 6.5 from a previous number of 4.12 days ago.. Patient admitted to the ICU secondary to severe anemia and jau ndice, this could be related to out to immune hemolytic anemia, oncology is on consult, Dr. Patrick is on consult for pulmonary medicine 2 units of packed red blood cells irradiated blood is currently being infused, possibility of right lower lobe pneumonia and parapneumonic effusion, started on IV antibiotic 05/05: Patient is still in ICU, feels more short of breath, hemoglobin currently is at 6.2, platelet count of 14, 7.1, patient has no shortness of breath or palpitations, still has diminished appetite, vital signs are stable in ICU, ultrasound shows moderate ascites, has dependent edema with anasarca will going to transfuse 1 unit of packed red blood cells irradiated blood, along with i ncrease in the furosemide to 20 mg every 12 hours. Caution for hypotension, as her protein stores are low, with ongoing sepsiswill going to transfuse 1 unit of packed red blood cells irradiated blood, along with decrease in the torsemide to 20 mg every 12 h we will request dr lord to see her for physcial deconditioning , eval for IP rehab, will request PT OT eval 05/06: Patient remains in ICU, hemoglobin of 6.2, more edema noted today, more abdominal distention today, however she still comfortable with her abdomen, platelet count is still low at 11, no plan for rbc transfusion today per onc ology, we'll going to discontinue amlodipine and lisinopril to allow more diuretic use, increase furosemide to 40 mg every 12 hours, continued Aldactone 25, she remains on Prandin, and dexamethasone, blood sugars are between 182-212, creatinine 0.56. Patient does not have any chest pain, no palpitations, no insomnia, she is on supplement 3 times a day at 60 g of protein per day along with her meals, albumin is low at 2.5, blood pressure 110-120 systolic 05/07, patient's demise in ICU, hemoglobin 6.0, still edematous, legs and arms bilaterally, anasarca still, no shortness of breath no palpitations, blood pressure is stable for increasing doses of Lasix adjusted to 40 every 8 hours,, has been off Lotrel patient would have an Conrado wrap today, and 1 unit of packed red blood cells today per oncology, no diarrhea, blood sugars ranging between 179-228, no change in Prandin, bilirubin now lower at 3.3, 05/08 patient evaluated bedside had a hemoglobin of 5.6 status post 2 units of packed red blood cells irradiated Repeat hemoglobin pending. Blood sugar under control patient has completed Decadron and 16 doses last night. Total bilirubin has improved to 2.6. Vitals assessed suggested temp of 97.9 pulse 15 blood pressure 122/71 saturating well on room air. Patient appears to be jorge matous in the lower extremities is otherwise doing well describes increased lethargy and is due for her second cycle on May 16. Started on Lasix 40 every 8 hours. Chest x-ray did show some concern for right lower lobe infiltrate versus atelectasis. Empiric antibiotic in the form of vancomycin and cefepime started blood culture so far negative Review of Systems Constitutional: Denies chills, Denies fever, endorses lethargic Eyes: denies decreased vision, denies diplopia, denies discharge, denies pain Ears: deny: decreased hearing Ears, nose, mouth and throat: Denies dental pain, Denies headache, Denies nasal discharge, Denies nose pain Cardiovascular: Denies chest pain, Denies decreased exercise tolerance, Denies edema, Denies high blood pressure, Denies irregular heart beat, Denies palpitations, Denies paroxysmal nocturnal dyspnea, Denies rapid heart beat, Denies shortness of breath bilateral lower extremity edema positive Respiratory: Denies congestion, Denies cough, Denies cough with sputum, Denies dyspnea, Denies home oxygen, Denies wheezing Gastrointestinal: Denies abdominal pain, Denies change in bowel habits, Denies coffee ground emesis, Denies early satiety, Denies excessive gas, Denies heartburn, Denies hematemesis, Denies hematochezia, Denies loss of appetite, Denies nausea, Denies vomiting abdomen bloated Genitourinary: Denies dysuria, Denies flank pain, Denies kidney stones, Denies menorrhagia, Denies urgency, Denies urinary frequency Musculoskeletal: Denies gait dysfunction, Denies limitation of motion, Denies morning stiffness, Denies muscle cramps Integumentary: Denies rash, Denies wounds, Denies brittle nails, Denies change in hair/nails, Denies darkening of skin Neurological: Denies balance difficulties, Denies change in speech, Denies double vision, Denies gait dysfunction, Denies loss of vision, Denies motor disturbance, Denies numbness, Denies paralysis, Denies paresthesias, Denies seizures Psychiatric: Denies anxiety, Denies depression Endocrine: Denies excessive sweating, Denies excessive thirst, Denies high blood sugars, Denies palpitations Hematologic/Lymphatic: Denies easy bruising, Denies lymphadenopathy Objective - Vital Signs Vital signs: Vital Signs Temp 98.1 F 05/08/19 12:00 Pulse 90 05/08/19 13:00 Resp 19 05/08/19 13:00 BP 118/73 05/08/19 13:00 Pulse Ox 94 L 05/08/19 13:00 Intake & Output 05/07/19 05/08/19 05/08/19 18:59 06:59 18:59 Intake Total 950 1520 775 Output Total 1300 2951 1850 Balance -350 -143 -1071 Weight 109.5 kg Intake: IV 950 900 775 Cefepime 2 gm In Sodium 150 100 100 Chloride 0.9% 100 ml @ 200 mls/hr IVPB Q8HR [facility] Rx#:[id number] Sodium Chloride 0.9% 1, 300 300 175 000 ml @ 25 mls/hr IV . Q24H [facility] Rx#:[id number] Vancomycin 1,750 mg In 500 500 500 Sodium Chloride 0.9% 500 ml 500 ml @ 167 mls/hr IVPB Q12H [facility] Rx#: [id number] Blood Product 620 0 Rc Irr As1 Unit 0 [id number] Rc Irr As1 Unit 310 [id number] Output: Urine 1300 2500 1850 Other: Voiding Method Bedside Commode Bedside Commode Bedside Commode - Exam - Exam - Constitutional General appearance: cooperative, no acute distress, obese - EENT Eyes: Icteric sclerae, PERRLA, normal appearance ENT: hearing grossly normal - Neck Neck: no lymphadenopathy, normal ROM, no other, no rigidity, no stridor, no thyromegaly - Respiratory Respiratory: bilateral: Decreased air entry bilaterally - Cardiovascular Rhythm: regular Heart sounds: normal: S1, S2 Abnormal Heart Sounds: no systolic murmur, no diastolic murmur, no rub General gastrointestinal: normal bowel sounds, soft, appears bloated - Integumentary Integumentary: no rash - Neurologic Neurologic: CNII-XII intact - Musculoskeletal Musculoskeletal: gait not assessed strength equal bilaterally - Psychiatric Psychiatric: A&O x's 3, appropriate affect - Labs CBC & Chem 7: 05/08/19 04:30 05/08/19 04:30 Labs: Abnormal Lab Results - Last 24 Hours (Table) 05/07/19 05/07/19 05/07/19 Range/Units 04:30 10:58 16:36 WBC (3.8-10.6) k/uL RBC (3.80-5.40) m/uL Hgb (11.4-16.0) gm/dL Hct (34.0-46.0) % RDW (11.5-15.5) % Plt Count (150-450) k/uL Neutrophils # (Manual) (1.3-7.7) k/uL Lymphocytes # (Manual) (1.0-4.8) k/uL Monocytes # (Manual) (0-1.0) k/uL Promyelocytes # (Man) (0) k/uL Retic Count (0.5-2.0) % Haptoglobin <8.0 L (31.2-198.0) mg/dL Chloride (98-107) mmol/L BUN (7-17) mg/dL Glucose (74-99) mg/dL POC Glucose (mg/dL) 158 H (75-99) mg/dL Calcium (8.4-10.2) mg/dL Total Bilirubin (0.2-1.3) mg/dL Total Protein (6.3-8.2) g/dL Albumin (3.5-5.0) g/dL Crossmatch See Detail 05/07/19 05/08/19 05/08/19 Range/Units 20:37 04:30 04:30 WBC 10.8 H (3.8-10.6) k/uL RBC 1.90 L (3.80-5.40) m/uL Hgb 5.6 L* (11.4-16.0) gm/dL Hct 16.9 L* (34.0-46.0) % RDW 17.2 H (11.5-15.5) % Plt Count 35 L D (150-450) k/uL Neutrophils # (Manual) 9.10 H (1.3-7.7) k/uL Lymphocytes # (Manual) 0.43 L (1.0-4.8) k/uL Monocytes # (Manual) 1.19 H (0-1.0) k/uL Promyelocytes # (Man) 0.11 H (0) k/uL Retic Count 0.4 L (0.5-2.0) % Haptoglobin (31.2-198.0) mg/dL Chloride 108 H (98-107) mmol/L BUN 33 H (7-17) mg/dL Glucose 189 H (74-99) mg/dL POC Glucose (mg/dL) 199 H (75-99) mg/dL Calcium 7.9 L (8.4-10.2) mg/dL Total Bilirubin 2.6 H (0.2-1.3) mg/dL Total Protein 4.9 L (6.3-8.2) g/dL Albumin 2.6 L (3.5-5.0) g/dL Crossmatch 05/08/19 05/08/19 Range/Units 06:40 12:23 WBC (3.8-10.6) k/uL RBC (3.80-5.40) m/uL Hgb (11.4-16.0) gm/dL Hct (34.0-46.0) % RDW (11.5-15.5) % Plt Count (150-450) k/uL Neutrophils # (Manual) (1.3-7.7) k/uL Lymphocytes # (Manual) (1.0-4.8) k/uL Monocytes # (Manual) (0-1.0) k/uL Promyelocytes # (Man) (0) k/uL Retic Count (0.5-2.0) % Haptoglobin (31.2-198.0) mg/dL Chloride (98-107) mmol/L BUN (7-17) mg/dL Glucose (74-99) mg/dL POC Glucose (mg/dL) 198 H 167 H (75-99) mg/dL Calcium (8.4-10.2) mg/dL Total Bilirubin (0.2-1.3) mg/dL Total Protein (6.3-8.2) g/dL Albumin (3.5-5.0) g/dL Crossmatch Microbiology - Last 24 Hours (Table) 05/03/19 19:08 Blood Culture - Preliminary Blood No Growth after 96 hours 05/03/19 19:08 Blood Culture - Preliminary Blood No Growth after 96 hours Assessment and Plan Plan: 1. Severe pancytopenia, recent chemotherapy for T-cell lymphoma with hemolytic anemia, severe jaundice, status post 4 units packed red blood cell, last on 05/08 irradiated, ICU management, oncology is following, pulmonary following 2 Angioimmunoblastic T-cell lymphoma T-cell lymphoma CD30 (final pathologic report with [facility]) due to her malignancy. Oncology consult on chemotherapy and plan for bone marrow transplant in future, chemotherapy initiated with etoposide, doxorubicin, vincristine and cyclophosphamide pathology suggestive angioimmunoblastic T-cell lymphoma Completed dexamethasone 10 mg every 6 hours on 3. Severe jaundice, unconjugated bilirubin fractionation, suspect hemolytic anemia might need reconsult GI at this time, if worse, hepatitis viral screening negative oncology has been consulted avoid transfusion with incompatib le packed red blood cells, IV hydration dexamethasone completed 4. Anasarca, with abdominal distention, moderate ascites, worsening davin to edema, increase IV Lasix 40mg every 8 hours, there might be some for titration the future, , start protein supplementation with diet, abdominal ultrasounaluate for ascites shows large pocket left lower quadrant, area, not amenable to abdominal paracentesis, as platelet count is too low 5 Gram-negative pneumonia possibility, patient is on cefepime, vancomycin pharmacy to dose, Dr. Byrd pulmonary medicine 6. Tumor lysis syndrome hx. Oncology is following. Patient is status post Elitek. 7. Diabetes mellitus type 2, uncontrolled with hyperglycemia secondary to steroids. Continue NovoLog scale and NPH 5 twice a day 8. Hyperlipidemia. Discontinue Crestor for now. Secondary to severe jaundice 9. Hypothyroidism. Continue Synthroid increased to 75 g orally once every day. 10. Diverticulosis. Colonoscopy is up-to-date. 11. Recurrent Depression. Currently on Effexor XR 75 mg orally once every day. 12. DVT prophylaxis. Bilateral knee-high THA hose. 13. GI prophylaxis. Protonix 40 mg IV push every 24 hours. 5 Hypertension and hypertensive cardiovascular disease stable , discontinue amlodipine 5 and lisinopril 40 mg to allow maximizing diuretic use. Lisinopril 40 mg every 12 hours continue Aldactone 25 16. Hepatocellular disease. Ultrasound of the abdomen as above. . Hepatitis panel neg 17. debility with physical deconitioning, start PT OT, consult DR lord 18. Moderate severe protein malnutrition, protein supplementation, Code status: full code.
[2019-05-08 18:10] LABS: Anisocytosis Slight; HCT 23.7 % (34.0-46.0); MCHC 34.3 g/dL (31.0-37.0); MCV 87.4 fL (80.0-100.0); Mean Platelet Volume 12.5; Poikilocytosis Slight; RBC 2.71 m/uL (3.80-5.40); RDW 16.2 % (11.5-15.5); WBC 19.7 k/uL (3.8-10.6)
[2019-05-08 18:22] LABS: HGB 8.1 gm/dL (11.4-16.0)
[2019-05-08 18:40] LABS: Band Neutrophils % 3 %; Lymphocytes # (M) 1.38 k/uL (1.0-4.8); Metamyelocytes # (M) 0.59 k/uL (0); Metamyelocytes % 3 %; Monocytes # (M) 0.79 k/uL (0-1.0); Myelocytes % 1 %; Neutrophils % (M) 84 %; Nucleated Red Blood Cells 0 /100 WBC (0-0); Total Cells Counted 200
[2019-05-08 18:41] LABS: Platelet Count 47 k/uL (150-450); Poikilocytosis (M) Present
[2019-05-09] MEDS: VANCOMYCIN 1,750 MG in SODIUM CHLORIDE 0.9% 500 ML 500 ML IVPB SCH (04:30)
[2019-05-09] MEDS: MAG HYDROX/AL HYDROX/SIMETH 30 ML, LIDOCAINE VISCOUS 30 ML, diphenhydrAMINE ELIXIR 75 M... PO SCH ×20 (05:14→23:32)
[2019-05-09] MEDS: SODIUM CHLORIDE 0.9% 1,000 ML IV SCH ×2 (05:21→23:32)
[2019-05-09 05:36] LABS: Anisocytosis Slight; HGB 7.4 gm/dL (11.4-16.0); MCH 29.5 pg (25.0-35.0); MCHC 33.8 g/dL (31.0-37.0); MCV 87.4 fL (80.0-100.0); Mean Platelet Volume 11.4; Poikilocytosis Slight; RBC 2.52 m/uL (3.80-5.40); RDW 16.5 % (11.5-15.5); WBC 21.6 k/uL (3.8-10.6)
[2019-05-09 05:49] LABS: ALT 38 U/L (4-34); AST 37 U/L (14-36); African American GFR (CKD) >90 (>60 ml/min/1.73 sqM); Albumin 2.6 g/dL (3.5-5.0); Alkaline Phosphatase 145 U/L (38-126); Anion Gap 5 mmol/L; Blood Urea Nitrogen 32 mg/dL (7-17); Calcium 7.9 mg/dL (8.4-10.2); Carbon Dioxide 28 mmol/L (22-30); Chloride 105 mmol/L (98-107); Glucose 119 mg/dL (74-99); Non-African American GFR(CKD) 88 (>60 ml/min/1.73 sqM); Potassium 3.9 mmol/L (3.5-5.1); Sodium 138 mmol/L (137-145); Total Bilirubin 2.6 mg/dL (0.2-1.3); Total Protein 4.7 g/dL (6.3-8.2)
[2019-05-09 06:02] LABS: Platelet Count 48 k/uL (150-450)
[2019-05-09] MEDS ORDERED: Potassium Replacement Protocol 1 EACH MISC MISCELLANE PRN (06:05)
[2019-05-09] MEDS: INSULIN ASPART (NovoLOG) 100 UNIT/ML VIAL SQ SCH ×3 (06:49→17:00)
[2019-05-09 06:58] LABS: Glucose,Whole Blood 128 mg/dL (75-99)
[2019-05-09] MEDS ORDERED: POTASSIUM CHLORIDE ER 20 MEQ TAB.ER PO SCH (07:00)
[2019-05-09] MEDS: INSULIN NPH 300 UNIT/3 ML VIAL SQ SCH ×2 (07:24→17:14)
[2019-05-09] MEDS: LEVOTHYROXINE 50 MCG TAB PO SCH (07:25)
[2019-05-09] MEDS: metFORMIN 500 MG TAB PO SCH ×2 (07:25→17:00)
[2019-05-09] MEDS: FUROSEMIDE 10 MG/ML 4 ML VIAL IV SCH ×4 (08:55→23:32)
[2019-05-09] MEDS: CEFEPIME 2 GM in SODIUM CHLORIDE 0.9% 100 ML IVPB SCH ×3 (08:55→23:31)
[2019-05-09] MEDS: PANTOPRAZOLE 40 MG TABLET PO SCH (08:55)
[2019-05-09] MEDS: VENLAFAXINE HCL 75 MG TAB PO SCH (08:55)
[2019-05-09] MEDS: SPIRONOLACTONE 25 MG TAB PO SCH (08:55)
--- NOTE | 2019-05-09 09:05 | P.PN ---
Subjective Progress Note Date: 05/09/19 Principal diagnosis: Chemotherapy-induced pancytopenia and acute hemolytic anemia This is a 68-year-old female recently diagnosed with angioimmunoblastic T-cell lymphoma presented mostly with generalized lymphadenopathy and bone marrow involvement with one episode of tumor lysis syndrome. Her diagnosis was made by biopsy of a right sided supraclavicular lymph node. Patient was recently in the hospital, and she was treated for tumor lysis syndrome and pancytopenia. She re ceived aggressive course of chemotherapy during her hospital stay, and she was discharged home on 04/30/2019. Patient presented to the ER yesterday, 3 days after discharge from the hospital mostly with complaints of weakness. She was also noting yellow discoloration. She had no nausea or vomiting, no abdominal pain, she had no cough no wheezing no fever no chills no hemoptysis, she was just feeling generally weak. Workup in the ER showed a WBC count of 0.4, hemoglobin 4.7, and her hemoglobin was 7.7 on 04/30. She was also noted to have low platelets at 22,000. Lactic acid was noted to be 2.3, total bilirubin was noted to be up to 6.5 from 4.1 few days ago, alkaline phosphatase of 58, and LDH of 584 Calcium was 7.5. Reticulocyte count of 0.2. Chest x-ray showed evidence of right sided pleural effusion, and right lower lobe atelectasis and/or consolidation. Patient was admitted to the intensive care unit, started empirically on vancomycin and cefepime. Cultures are all pending. Fluids were given. And blood transfusion was ordered however it seems to be difficult to find compatible blood for this patient, and the process of blood transfusion is pending. Considering the patient was admitted to the ICU, I was asked to see her on consultation Reevaluated today on 05/05/2019, patient remains in the intensive care units. Hemodynamically stable, on room air, denies any shortness of breath, no cough no wheezing and no chest pain. Patient is sitting at a bedside chair, seems to be quite comfortable. She received so far a total of 5 units of packed RBCs for her profound anemia which was felt to be hemolytic in nature. Hemoglobin today is 6.2. Platelets remained low at 14,000. WBC count is 0.1. Basic metabolic profile is normal. Chest x-ray showed slight improvement in her right pleural effusion and right lower lobe atelectasis/infiltrate. Ultrasound of the abdomen showed moderate ascites. Patient remains on diuretics, and the dose was increased to Lasix 20 mg every 12 hours. Blood cultures remain negative so far from admission. Reevaluated today on 05/06/2019, patient remains in the ICU, remains on room air, hemoglobin is 6.2 today, however the patient is relatively asymptomatic. WBC count remains low, platelets remained low, patient isn't responding well to diuretics, remains on broad-spectrum antibiotics. No major change director the last 24 hours. Patient did receive a total of 5 units of packed RBCs since admission, and her hemoglobin today is 6.2 platelets are 11,000. Basic metabolic profile and renal profile remained relatively normal. Reevaluated today on 05/07/2019, remains in the ICU, comfortable, on room air, in no distress, hemoglobin today is 6.0, platelets remained low, however WBC count is up to 1.6. Patient remains on diuretics, she has good urine output, and her overall anasarca seems to be improving. Remains on broad-spectrum antibiotics, cultures remain negative. Patient is being followed closely by hematology/oncology, and may or may not transfuse the patient with a unit of packed RBCs today this will be decided upon by hematology. So far the patient received a total of 5 units of packed RBCs since admission On 05/08/2019 patient seen in follow-up in the intensive care unit, she is resting comfortably in bed, she is currently on room air with a pulse ox of 93- 98%, she is afebrile, hemodynamically stable, she is on IV maintenance fluids of 0.9 normal saline at a rate of 25 ML per hour. Today's chest x-ray has been reviewed showing right lower lobe infiltrate versus atelectasis and associated pleural effusion. She remains on IV Lasix at 40 mg every 8 hours, and empiric antibiotics in the form of vancomycin and cefepime. Blood cultures have shown no growth, no cough or congestion, no convincing chest pain, Flovent status is improving, patient is in -1330 mL fluid balance over the last 24 hours. Today's labs have been reviewed, showing white blood cell count of 10.8, hemoglobin of 5.6, platelet count of 35, sodium is 140, potassium is 4.5, chloride is 108, BUN of 33, creatinine 0.71. Still has edema involving upper and lower extremities, but no complaints of shortness of breath or palpitations. Patient is receiving 1 unit of packed red blood cells today for hemoglobin of 5.6, no signs of active bleeding right now. On 05/09/2019 patient seen in follow-up in the intensive care unit, she is resting in bed, she is eating some breakfast this morning, her appetite is improving, still has significant generalized weakness, but somewhat improved, he states she was up in the chair, tolerated activity fairly well, currently she denies any complaints, no shortness of breath, room air pulse ox is 95%, she is afebrile, hemodynamically patient is stable. Sinus mechanism on the monitor with a controlled rate, IV fluids infusing at a rate of 25 ML per hour, no signs of active bleeding, today's hemoglobin is 7.4, patient has received a total of 7 units of packed red blood cells on this admission. On today's labs White blood cell count has slightly increased to 21.6, with a count is still pending at this time, on yesterday's labs he was 47, electrolytes are within normal limits, B1 is 32 creatinine 0.7. Denies shortness of breath, patient has significant anasarca, and ascites. Today's labs have been reviewed and patient's albumin level is 2.6. Liver enzymes are trending up on today's labs, with AST up to 37, ALT is 38, and alkaline phosphatase of 145. Continues on IV Lasix, and she is in -4 L over the last 24 hours, remains on cefepime and vancomycin for antibiotic coverage, has not had fever or chills Objective - Vital Signs Vital signs: Vital Signs Temp 97.9 F 05/09/19 04:00 Pulse 80 05/09/19 07:00 Resp 15 05/09/19 07:00 BP 118/72 05/09/19 07:00 Pulse Ox 95 05/09/19 07:00 Intake & Output 05/08/19 05/09/19 05/09/19 18:59 06:59 18:59 Intake Total 1310 845 25 Output Total 4050 2200 Balance -8080 -1355 25 Weight 109.5 kg 106.3 kg Intake: IV 1000 845 25 Cefepime 2 gm In Sodium 200 100 Chloride 0.9% 100 ml @ 200 mls/hr IVPB Q8HR [facility] Rx#:[id number] Sodium Chloride 0.9% 1, 300 245 25 000 ml @ 25 mls/hr IV . Q24H [facility] Rx#:[id number] Vancomycin 1,750 mg In 500 500 Sodium Chloride 0.9% 500 ml 500 ml @ 167 mls/hr IVPB Q12H [facility] Rx#: [id number] Blood Product 310 Rc Irr As1 Unit 310 [id number] Output: Urine 4050 2200 Other: Voiding Method Bedside Commode Bedside Commode # Bowel Movements 1 - Exam GENERAL EXAM: Alert, very pleasant, 68-year-old white female, on room air, resting comfortably in bed, generally weak, comfortable in no apparent distress. HEAD: Normocephalic/atraumatic. EYES: Normal reaction of pupils, equal size. Conjunctiva pink, sclera white. NOSE: Clear with pink turbinates. THROAT: No erythema or exudates. NECK: No masses, no JVD, no thyroid enlargement, no adenopathy. CHEST: No chest wall deformity. Symmetrical expansion. LUNGS: Equal air entry with no crackles, wheeze, rhonchi or dullness. CVS: Regular rate and rhythm, normal S1 and S2, no gallops, no murmurs, no rubs ABDOMEN: Soft, patient has abdominal ascites. No hepatosplenomegaly, normal bowel sounds, no guarding or rigidity. EXTREMITIES: No clubbing, 1+ upper and lower extremity edema, no cyanosis, 2+ pulses and upper and lower extremities. MUSCULOSKELETAL: Muscle strength and tone normal. SPINE: No scoliosis or deformity SKIN: No rashes CENTRAL NERVOUS SYSTEM: Alert and oriented -3. No focal deficits, tone is normal in all 4 extremities. PSYCHIATRIC: Alert and oriented -3. Appropriate affect. Intact judgment and insight. - Labs CBC & Chem 7: 05/09/19 05:00 05/09/19 05:00 Labs: Abnormal Lab Results - Last 24 Hours (Table) 05/07/19 05/07/19 05/08/19 Range/Units 04:30 10:58 12:23 WBC (3.8-10.6) k/uL RBC (3.80-5.40) m/uL Hgb (11.4-16.0) gm/dL Hct (34.0-46.0) % RDW (11.5-15.5) % Plt Count (150-450) k/uL Neutrophils # (Manual) (1.3-7.7) k/uL Metamyelocytes # (Man) (0) k/uL Myelocytes # (Manual) (0) k/uL Haptoglobin <8.0 L (31.2-198.0) mg/dL BUN (7-17) mg/dL Glucose (74-99) mg/dL POC Glucose (mg/dL) 167 H (75-99) mg/dL Calcium (8.4-10.2) mg/dL Total Bilirubin (0.2-1.3) mg/dL AST (14-36) U/L ALT (4-34) U/L Alkaline Phosphatase (38-126) U/L Total Protein (6.3-8.2) g/dL Albumin (3.5-5.0) g/dL Crossmatch See Detail 05/08/19 05/08/19 05/09/19 Range/Units 17:10 17:50 05:00 WBC 19.7 H (3.8-10.6) k/uL RBC 2.71 L (3.80-5.40) m/uL Hgb 8.1 L D (11.4-16.0) gm/dL Hct 23.7 L (34.0-46.0) % RDW 16.2 H (11.5-15.5) % Plt Count 47 L (150-450) k/uL Neutrophils # (Manual) 17.10 H (1.3-7.7) k/uL Metamyelocytes # (Man) 0.59 H (0) k/uL Myelocytes # (Manual) 0.20 H (0) k/uL Haptoglobin (31.2-198.0) mg/dL BUN 32 H (7-17) mg/dL Glucose 119 H (74-99) mg/dL POC Glucose (mg/dL) 130 H (75-99) mg/dL Calcium 7.9 L (8.4-10.2) mg/dL Total Bilirubin 2.6 H (0.2-1.3) mg/dL AST 37 H (14-36) U/L ALT 38 H (4-34) U/L Alkaline Phosphatase 145 H (38-126) U/L Total Protein 4.7 L (6.3-8.2) g/dL Albumin 2.6 L (3.5-5.0) g/dL Crossmatch 05/09/19 05/09/19 Range/Units 05:00 06:47 WBC 21.6 H (3.8-10.6) k/uL RBC 2.52 L (3.80-5.40) m/uL Hgb 7.4 L (11.4-16.0) gm/dL Hct 22.0 L (34.0-46.0) % RDW 16.5 H (11.5-15.5) % Plt Count (150-450) k/uL Neutrophils # (Manual) (1.3-7.7) k/uL Metamyelocytes # (Man) (0) k/uL Myelocytes # (Manual) (0) k/uL Haptoglobin (31.2-198.0) mg/dL BUN (7-17) mg/dL Glucose (74-99) mg/dL POC Glucose (mg/dL) 128 H (75-99) mg/dL Calcium (8.4-10.2) mg/dL Total Bilirubin (0.2-1.3) mg/dL AST (14-36) U/L ALT (4-34) U/L Alkaline Phosphatase (38-126) U/L Total Protein (6.3-8.2) g/dL Albumin (3.5-5.0) g/dL Crossmatch Microbiology - Last 24 Hours (Table) 05/03/19 19:08 Blood Culture - Preliminary Blood No Growth after 120 hours 05/03/19 19:08 Blood Culture - Preliminary Blood No Growth after 120 hours Assessment and Plan Plan: Assessment: #1. Chemotherapy induced pancytopenia, improving #2. Recurrent anemia, acute hemolytic in nature, also associated with bone marrow suppression secondary to chemotherapy, status post transfusion with 7 units of packed red blood cells this admission #3. Neutropenic sepsis patient continues on empiric broad-spectrum antibiotics #4. Possible right lower lobe pneumonia with parapneumonic effusion, his chest x-ray shows stable findings of right lower lobe atelectasis/infiltrate with small parapneumonic effusion on the right #5. History of tumor lysis syndrome, noted on her last admission/resolved #6. History of breast cancer previous lumpectomy #7. Multiple comorbidities including hypertension, hyperlipidemia, hypothyroidism, and type 2 diabetes #8. Angioimmunoblastic T-cell lymphoma #9. Ascites Plan: We'll continue with IV Lasix, patient has significant ascites, and anasarca, albumin level is low, we'll give the patient 12-1/2 g of 25% albumin, and follow with Lasix. Continue empiric antibiotics, no fever or chills, increase activity as tolerated, today's labs have been noted. Today's hemoglobin is 7.4, hemodynamically patient is stable, appetite slightly improved, registered dietitian is following, encourage oral intake, and provide nutritional supplementation. We will continue to follow I performed a history & physical examination of the patient and discussed their management with my nurse practitioner, Rosemary Junior. I reviewed the nurse practitioner's note and agree with the documented findings and plan of care. Lung sounds are positive for diminished lung neri. The findings and the impression was discussed with the patient. I attest to the documentation by the nurse practitioner. Time with Patient: Less than 30
[2019-05-09 09:13] LABS: Band Neutrophils % 8 %; Lymphocytes # (M) 0.43 k/uL (1.0-4.8); Metamyelocytes # (M) 0.22 k/uL (0); Metamyelocytes % 1 %; Monocytes # (M) 2.16 k/uL (0-1.0); Myelocytes # (M) 0.43 k/uL (0); Myelocytes % 2 %; Neutrophils % (M) 79 %; Nucleated Red Blood Cells 0 /100 WBC (0-0); Total Cells Counted 200
[2019-05-09 09:15] LABS: Mixed Population RBC Present
[2019-05-09] MEDS ORDERED: ALBUMIN HUMAN 25% 50 ML in EMPTY BAG 1 BAG IVPB ONE ×2 (10:00→12:00)
[2019-05-09 12:21] LABS: Glucose,Whole Blood 146 mg/dL (75-99)
--- NOTE | 2019-05-09 16:10 | P.PN ---
Subjective Progress Note Date: 05/09/19 This is a 68-year-old female patient Dr Gaffney with a previous medical history significant for new diagnosed angioimmunoblastic T-cell lymphoma which was diagnosed 04/25/2019, along with tumor lysis syndrome, hypertension and hypertensive cardiovascular disease, hyperlipidemia, new diagnosis of diabetes mellitus type 2, history of breast cancer status post right lumpectomy with radiation therapy, diverticulosis, hypothyroidism, was started on chemotherapy Cytoxan, etoposide and prednisone. She was discharged to home 04/30/2019, with a total bili of 4.1 comes in to the emergency room with significant jaundice of 2 days' duration, increasing weakness, and severe anemia. Diminished appetite, increasing abdominal distention, and increasing dependent edema legs patient denies any palpitations or chest pain or pleurisy, no melena and hematochezia Emergency room, she has a WBC count of 0.2, hemoglobin 4.7, platelet count of 22 INR of 1.2, creatinine 0.5, total bilirubin of 6.5 from a previous number of 4.12 days ago.. Patient admitted to the ICU secondary to severe anemia and jau ndice, this could be related to out to immune hemolytic anemia, oncology is on consult, Dr. Patrick is on consult for pulmonary medicine 2 units of packed red blood cells irradiated blood is currently being infused, possibility of right lower lobe pneumonia and parapneumonic effusion, started on IV antibiotic 05/05: Patient is still in ICU, feels more short of breath, hemoglobin currently is at 6.2, platelet count of 14, 7.1, patient has no shortness of breath or palpitations, still has diminished appetite, vital signs are stable in ICU, ultrasound shows moderate ascites, has dependent edema with anasarca will going to transfuse 1 unit of packed red blood cells irradiated blood, along with i ncrease in the furosemide to 20 mg every 12 hours. Caution for hypotension, as her protein stores are low, with ongoing sepsiswill going to transfuse 1 unit of packed red blood cells irradiated blood, along with decrease in the torsemide to 20 mg every 12 h we will request dr lord to see her for physcial deconditioning , eval for IP rehab, will request PT OT eval 05/06: Patient remains in ICU, hemoglobin of 6.2, more edema noted today, more abdominal distention today, however she still comfortable with her abdomen, platelet count is still low at 11, no plan for rbc transfusion today per onc ology, we'll going to discontinue amlodipine and lisinopril to allow more diuretic use, increase furosemide to 40 mg every 12 hours, continued Aldactone 25, she remains on Prandin, and dexamethasone, blood sugars are between 182-212, creatinine 0.56. Patient does not have any chest pain, no palpitations, no insomnia, she is on supplement 3 times a day at 60 g of protein per day along with her meals, albumin is low at 2.5, blood pressure 110-120 systolic 05/07, patient's demise in ICU, hemoglobin 6.0, still edematous, legs and arms bilaterally, anasarca still, no shortness of breath no palpitations, blood pressure is stable for increasing doses of Lasix adjusted to 40 every 8 hours,, has been off Lotrel patient would have an Conrado wrap today, and 1 unit of packed red blood cells today per oncology, no diarrhea, blood sugars ranging between 179-228, no change in Prandin, bilirubin now lower at 3.3, 05/08 patient evaluated bedside had a hemoglobin of 5.6 status post 2 units of packed red blood cells irradiated Repeat hemoglobin pending. Blood sugar under control patient has completed Decadron and 16 doses last night. Total bilirubin has improved to 2.6. Vitals assessed suggested temp of 97.9 pulse 15 blood pressure 122/71 saturating well on room air. Patient appears to be jorge matous in the lower extremities is otherwise doing well describes increased lethargy and is due for her second cycle on May 16. Started on Lasix 40 every 8 hours. Chest x-ray did show some concern for right lower lobe infiltrate versus atelectasis. Empiric antibiotic in the form of vancomycin and cefepime started blood culture so far negative patient evaluated bedside hemoglobin stable at 7.4 patient has a leukocytosis of 20.6. Continue on Lasix 40 IV every 8 with Aldactone 25 mg by mouth daily. Patient feels weak denies any shortness of breath or abdominal. Patient has bilateral lower extremity edema wrapped in Conrado wraps improved. Abdomen appears distended but patient denies any constipation, feeling of fullness. Patient received 1 dose of albumin for a low albumin today Review of Systems Constitutional: Denies chills, Denies fever, endorses lethargic Eyes: denies decreased vision, denies diplopia, denies discharge, denies pain Ears: deny: decreased hearing Ears, nose, mouth and throat: Denies dental pain, Denies headache, Denies nasal discharge, Denies nose pain Cardiovascular: Denies chest pain, Denies decreased exercise tolerance, Denies edema, Denies high blood pressure, Denies irregular heart beat, Denies palpitations, Denies paroxysmal nocturnal dyspnea, Denies rapid heart beat, Denies shortness of breath bilateral lower extremity edema positive Respiratory: Denies congestion, Denies cough, Denies cough with sputum, Denies dyspnea, Denies home oxygen, Denies wheezing Gastrointestinal: Denies abdominal pain, Denies change in bowel habits, Denies coffee ground emesis, Denies early satiety, Denies excessive gas, Denies heartburn, Denies hematemesis, Denies hematochezia, Denies loss of appetite, Denies nausea, Denies vomiting abdomen bloated Genitourinary: Denies dysuria, Denies flank pain, Denies kidney stones, Denies menorrhagia, Denies urgency, Denies urinary frequency Musculoskeletal: Denies gait dysfunction, Denies limitation of motion, Denies morning stiffness, Denies muscle cramps Integumentary: Denies rash, Denies wounds, Denies brittle nails, Denies change in hair/nails, Denies darkening of skin Neurological: Denies balance difficulties, Denies change in speech, Denies double vision, Denies gait dysfunction, Denies loss of vision, Denies motor di sturbance, Denies numbness, Denies paralysis, Denies paresthesias, Denies seizures Psychiatric: Denies anxiety, Denies depression Endocrine: Denies excessive sweating, Denies excessive thirst, Denies high blood sugars, Denies palpitations Hematologic/Lymphatic: Denies easy bruising, Denies lymphadenopathy Objective - Vital Signs Vital signs: Vital Signs Temp 97.5 F L 05/09/19 12:00 Pulse 93 05/09/19 15:00 Resp 15 05/09/19 15:00 BP 122/62 05/09/19 15:00 Pulse Ox 94 L 05/09/19 15:00 Intake & Output 05/08/19 05/09/19 05/09/19 18:59 06:59 18:59 Intake Total 1310 845 375 Output Total 4050 2200 2024 Balance -4476 -0836 -4243 Weight 109.5 kg 106.3 kg Intake: IV 1000 845 375 Albumin Human 25% 50 ml 50 In Empty Bag 1 bag @ 50 mls/hr IVPB ONCE ONE Rx#: [id number] Cefepime 2 gm In Sodium 200 100 100 Chloride 0.9% 100 ml @ 200 mls/hr IVPB Q8HR [facility] Rx#:[id number] Sodium Chloride 0.9% 1, 300 245 225 000 ml @ 25 mls/hr IV . Q24H [facility] Rx#:[id number] Vancomycin 1,750 mg In 500 500 Sodium Chloride 0.9% 500 ml 500 ml @ 167 mls/hr IVPB Q12H [facility] Rx#: [id number] Blood Product 310 Rc Irr As1 Unit 310 [id number] Output: Urine 4050 2199 2024 Other: Voiding Method Bedside Commode Bedside Commode Bedside Commode # Bowel Movements 1 - Exam - Exam - Constitutional General appearance: cooperative, no acute distress, obese - EENT Eyes: Icteric sclerae, PERRLA, normal appearance ENT: hearing grossly normal - Neck Neck: no lymphadenopathy, normal ROM, no other, no rigidity, no stridor, no thyromegaly - Respiratory Respiratory: bilateral: Decreased air entry bilaterally - Cardiovascular Rhythm: regular Heart sounds: normal: S1, S2 Abnormal Heart Sounds: no systolic murmur, no diastolic murmur, no rub General gastrointestinal: normal bowel sounds, soft, appears bloated - Integumentary Integumentary: no rash - Neurologic Neurologic: CNII-XII intact - Musculoskeletal Musculoskeletal: gait not assessed strength equal bilaterally - Psychiatric Psychiatric: A&O x's 3, appropriate affect - Labs CBC & Chem 7: 05/09/19 05:00 05/09/19 05:00 Labs: Abnormal Lab Results - Last 24 Hours (Table) 05/07/19 05/08/19 05/08/19 Range/Units 10:58 17:10 17:50 WBC 19.7 H (3.8-10.6) k/uL RBC 2.71 L (3.80-5.40) m/uL Hgb 8.1 L D (11.4-16.0) gm/dL Hct 23.7 L (34.0-46.0) % RDW 16.2 H (11.5-15.5) % Plt Count 47 L (150-450) k/uL Neutrophils # (Manual) 17.10 H (1.3-7.7) k/uL Lymphocytes # (Manual) (1.0-4.8) k/uL Monocytes # (Manual) (0-1.0) k/uL Metamyelocytes # (Man) 0.59 H (0) k/uL Myelocytes # (Manual) 0.20 H (0) k/uL BUN (7-17) mg/dL Glucose (74-99) mg/dL POC Glucose (mg/dL) 130 H (75-99) mg/dL Calcium (8.4-10.2) mg/dL Total Bilirubin (0.2-1.3) mg/dL AST (14-36) U/L ALT (4-34) U/L Alkaline Phosphatase (38-126) U/L Total Protein (6.3-8.2) g/dL Albumin (3.5-5.0) g/dL Crossmatch See Detail Reference Lab Result See [facility] REF Reports A 05/09/19 05/09/19 05/09/19 Range/Units 05:00 05:00 06:47 WBC 21.6 H (3.8-10.6) k/uL RBC 2.52 L (3.80-5.40) m/uL Hgb 7.4 L (11.4-16.0) gm/dL Hct 22.0 L (34.0-46.0) % RDW 16.5 H (11.5-15.5) % Plt Count 48 L (150-450) k/uL Neutrophils # (Manual) 18.70 H (1.3-7.7) k/uL Lymphocytes # (Manual) 0.43 L (1.0-4.8) k/uL Monocytes # (Manual) 2.16 H (0-1.0) k/uL Metamyelocytes # (Man) 0.22 H (0) k/uL Myelocytes # (Manual) 0.43 H (0) k/uL BUN 32 H (7-17) mg/dL Glucose 119 H (74-99) mg/dL POC Glucose (mg/dL) 128 H (75-99) mg/dL Calcium 7.9 L (8.4-10.2) mg/dL Total Bilirubin 2.6 H (0.2-1.3) mg/dL AST 37 H (14-36) U/L ALT 38 H (4-34) U/L Alkaline Phosphatase 145 H (38-126) U/L Total Protein 4.7 L (6.3-8.2) g/dL Albumin 2.6 L (3.5-5.0) g/dL Crossmatch Reference Lab Result 05/09/19 Range/Units 12:09 WBC (3.8-10.6) k/uL RBC (3.80-5.40) m/uL Hgb (11.4-16.0) gm/dL Hct (34.0-46.0) % RDW (11.5-15.5) % Plt Count (150-450) k/uL Neutrophils # (Manual) (1.3-7.7) k/uL Lymphocytes # (Manual) (1.0-4.8) k/uL Monocytes # (Manual) (0-1.0) k/uL Metamyelocytes # (Man) (0) k/uL Myelocytes # (Manual) (0) k/uL BUN (7-17) mg/dL Glucose (74-99) mg/dL POC Glucose (mg/dL) 146 H (75-99) mg/dL Calcium (8.4-10.2) mg/dL Total Bilirubin (0.2-1.3) mg/dL AST (14-36) U/L ALT (4-34) U/L Alkaline Phosphatase (38-126) U/L Total Protein (6.3-8.2) g/dL Albumin (3.5-5.0) g/dL Crossmatch Reference Lab Result Microbiology - Last 24 Hours (Table) 05/03/19 19:08 Blood Culture - Preliminary Blood No Growth after 120 hours 05/03/19 19:08 Blood Culture - Preliminary Blood No Growth after 120 hours Assessment and Plan Plan: 1. Severe pancytopenia, recent chemotherapy for T-cell lymphoma with hemolytic anemia, severe jaundice, status post 4 units packed red blood cell, last on 05/08 irradiated, ICU management, oncology is following, pulmonary following 2 Angioimmunoblastic T-cell lymphoma T-cell lymphoma CD30 (final pathologic report with [facility]) due to her malignancy. Oncology consult on chemotherapy and plan for bone marrow transplant in future, chemotherapy initiated with etoposide, doxorubicin, vincristine and cyclophosphamide pathology suggestive angioimmunoblastic T-cell lymphoma Completed dexamethasone 10 mg every 6 hours on we'll restart on 05/12 3. Severe jaundice, unconjugated bilirubin fractionation, suspect hemolytic anemia might need reconsult GI at this time, if worse, hepatitis viral screeni ng negative oncology has been consulted avoid transfusion with incompatible packed red blood cells, IV hydration dexamethasone completed 4. Anasarca, with abdominal distention, moderate ascites, worsening davin to edema, increase IV Lasix 40mg every 8 hours, there might be some for titration the future, , start protein supplementation with diet, abdominal ultrasounaluate for ascites shows large pocket left lower quadrant, area, not amenable to abdominal paracentesis, as platelet count is too low 5 Gram-negative pneumonia possibility, patient is on cefepime, with discontinue vancomycin today as of MRSA noted., Dr. Byrd pulmonary medicine 6. Tumor lysis syndrome hx. Oncology is following. Patient is status post Elite[employer]. 7. Diabetes mellitus type 2, uncontrolled with hyperglycemia secondary to steroids. Continue NovoLog scale and NPH 5 twice a day 8. Hyperlipidemia. Discontinue Crestor for now. Secondary to severe jaundice 9. Hypothyroidism. Continue Synthroid increased to 75 g orally once every day. 10. Diverticulosis. Colonoscopy is up-to-date. 11. Recurrent Depression. Currently on Effexor XR 75 mg orally once every day. 12. DVT prophylaxis. Bilateral knee-high THA hose. 13. GI prophylaxis. Protonix 40 mg IV push every 24 hours. 5 Hypertension and hypertensive cardiovascular disease stable , discontinue amlodipine 5 and lisinopril 40 mg to allow maximizing diuretic use. Lisinopril 40 mg every 12 hours continue Aldactone 25 16. Hepatocellular disease. Ultrasound of the abdomen as above. . Hepatitis panel neg 17. debility with physical deconitioning, start PT OT, consult DR lord 18. Moderate severe protein malnutrition, protein supplementation, status post 12.5 g of 25% of albumin today Code status: full code.
--- NOTE | 2019-05-09 16:33 | P.PN ---
Subjective Progress Note Date: 05/09/19 Principal diagnosis: Hemolysis, severe pancytopenia secondary to treatment and disease (T-cell immunoblastic lymphoma) In f/u today pt is sitting in chair, she is smiling, abd continues to be bloated, SOB on exertion, generalized weakness, no fever, oral irritation, nausea, vomiting, chest pain, diarrhea, dysuria, bleeding or pain reported Objective - Vital Signs Vital signs: Vital Signs Temp 97.5 F L 05/09/19 12:00 Pulse 93 05/09/19 15:00 Resp 15 05/09/19 15:00 BP 122/62 05/09/19 15:00 Pulse Ox 94 L 05/09/19 15:00 Intake & Output 05/08/19 05/09/19 05/09/19 18:59 06:59 18:59 Intake Total 1310 845 375 Output Total 4050 2200 2024 Balance -3298 -1138 -1881 Weight 109.5 kg 106.3 kg Intake: IV 1000 845 375 Albumin Human 25% 50 ml 50 In Empty Bag 1 bag @ 50 mls/hr IVPB ONCE ONE Rx#: [id number] Cefepime 2 gm In Sodium 200 100 100 Chloride 0.9% 100 ml @ 200 mls/hr IVPB Q8HR [facility] Rx#:[id number] Sodium Chloride 0.9% 1, 300 245 225 000 ml @ 25 mls/hr IV . Q24H [facility] Rx#:[id number] Vancomycin 1,750 mg In 500 500 Sodium Chloride 0.9% 500 ml 500 ml @ 167 mls/hr IVPB Q12H [facility] Rx#: [id number] Blood Product 310 Rc Irr As1 Unit 310 [id number] Output: Urine 4050 0 2024 Other: Voiding Method Bedside Commode Bedside Commode Bedside Commode # Bowel Movements 1 - Constitutional General appearance: Present: average body habitus, cooperative, no acute distress - EENT Eyes: Present: anicteric sclerae, EOMI ENT: Present: hearing grossly normal, normal oropharynx - Respiratory Respiratory: bilateral: CTA - Cardiovascular Heart sounds: normal: S1, S2 - Peripheral edema leg Peripheral Edema: bilateral: 2+ - Gastrointestinal General gastrointestinal: Present: distended, normal bowel sounds, soft - Neurologic Neurologic: Present: CNII-XII intact - Musculoskeletal Musculoskeletal: Present: generalized weakness - Psychiatric Psychiatric: Present: A&O x's 3, appropriate affect, intact judgment & insight - Labs CBC & Chem 7: 05/09/19 05:00 05/09/19 05:00 Labs: Abnormal Lab Results - Last 24 Hours (Table) 05/07/19 05/08/19 05/08/19 Range/Units 10:58 17:10 17:50 WBC 19.7 H (3.8-10.6) k/uL RBC 2.71 L (3.80-5.40) m/uL Hgb 8.1 L D (11.4-16.0) gm/dL Hct 23.7 L (34.0-46.0) % RDW 16.2 H (11.5-15.5) % Plt Count 47 L (150-450) k/uL Neutrophils # (Manual) 17.10 H (1.3-7.7) k/uL Lymphocytes # (Manual) (1.0-4.8) k/uL Monocytes # (Manual) (0-1.0) k/uL Metamyelocytes # (Man) 0.59 H (0) k/uL Myelocytes # (Manual) 0.20 H (0) k/uL BUN (7-17) mg/dL Glucose (74-99) mg/dL POC Glucose (mg/dL) 130 H (75-99) mg/dL Calcium (8.4-10.2) mg/dL Total Bilirubin (0.2-1.3) mg/dL AST (14-36) U/L ALT (4-34) U/L Alkaline Phosphatase (38-126) U/L Total Protein (6.3-8.2) g/dL Albumin (3.5-5.0) g/dL Reference Lab Result See [facility] REF Reports A 05/09/19 05/09/19 05/09/19 Range/Units 05:00 05:00 06:47 WBC 21.6 H (3.8-10.6) k/uL RBC 2.52 L (3.80-5.40) m/uL Hgb 7.4 L (11.4-16.0) gm/dL Hct 22.0 L (34.0-46.0) % RDW 16.5 H (11.5-15.5) % Plt Count 48 L (150-450) k/uL Neutrophils # (Manual) 18.70 H (1.3-7.7) k/uL Lymphocytes # (Manual) 0.43 L (1.0-4.8) k/uL Monocytes # (Manual) 2.16 H (0-1.0) k/uL Metamyelocytes # (Man) 0.22 H (0) k/uL Myelocytes # (Manual) 0.43 H (0) k/uL BUN 32 H (7-17) mg/dL Glucose 119 H (74-99) mg/dL POC Glucose (mg/dL) 128 H (75-99) mg/dL Calcium 7.9 L (8.4-10.2) mg/dL Total Bilirubin 2.6 H (0.2-1.3) mg/dL AST 37 H (14-36) U/L ALT 38 H (4-34) U/L Alkaline Phosphatase 145 H (38-126) U/L Total Protein 4.7 L (6.3-8.2) g/dL Albumin 2.6 L (3.5-5.0) g/dL Reference Lab Result 05/09/19 Range/Units 12:09 WBC (3.8-10.6) k/uL RBC (3.80-5.40) m/uL Hgb (11.4-16.0) gm/dL Hct (34.0-46.0) % RDW (11.5-15.5) % Plt Count (150-450) k/uL Neutrophils # (Manual) (1.3-7.7) k/uL Lymphocytes # (Manual) (1.0-4.8) k/uL Monocytes # (Manual) (0-1.0) k/uL Metamyelocytes # (Man) (0) k/uL Myelocytes # (Manual) (0) k/uL BUN (7-17) mg/dL Glucose (74-99) mg/dL POC Glucose (mg/dL) 146 H (75-99) mg/dL Calcium (8.4-10.2) mg/dL Total Bilirubin (0.2-1.3) mg/dL AST (14-36) U/L ALT (4-34) U/L Alkaline Phosphatase (38-126) U/L Total Protein (6.3-8.2) g/dL Albumin (3.5-5.0) g/dL Reference Lab Result Microbiology - Last 24 Hours (Table) 05/03/19 19:08 Blood Culture - Preliminary Blood No Growth after 120 hours 05/03/19 19:08 Blood Culture - Preliminary Blood No Growth after 120 hours Assessment and Plan (1) Hemolytic anemia Narrative/Plan: Secondary to lymphoma. Stable Hgb after starting Pulse dose dex, this will be continued 4 days on, 4 days off. Hgb 7.4 today, Transfuse to keep Hgb above 7. Current Visit: Yes Status: Acute Priority: High Code(s): D58.9 - HEREDITARY HEMOLYTIC ANEMIA, UNSPECIFIED SNOMED Code(s): 46377167 (2) Angioimmunoblastic T-cell lymphoma Narrative/Plan: S/P post 1st cycle of EPOCH, GCSF on 05/01. Pt due to see Dr. Gonzalez in office, appt has been changed. Next cycle due next week. Plans will be adjusted accordingly based on pt recovery Current Visit: Yes Status: Acute Priority: High Code(s): C86.5 - ANGIOIMMUNOBLASTIC T-CELL LYMPHOMA SNOMED Code(s): 511304910 (3) Antineoplastic chemotherapy induced pancytopenia Narrative/Plan: Expected. WBC recovered-in part GCSF and in part steroids. Platelets 48K today Hgb 7.4 today No transfusions today CBC daily Current Visit: Yes Status: Acute Priority: High Code(s): D61.810 - ANTINEOPLASTIC CHEMOTHERAPY INDUCED PANCYTOPENIA; T45.1X5A - ADVERSE EFFECT OF ANTINEOPLASTIC AND IMMUNOSUP DRUGS, INIT SNOMED Code(s): 008093895077527 (4) Jaundice Current Visit: Yes Status: Resolved Priority: High Code(s): R17 - UNSPECIFIED JAUNDICE SNOMED Code(s): 41133694 (5) Generalized weakness Narrative/Plan: Due to severe anemia, prolonged bed rest/ICU stay. Anemia improved with transfusion. Pt to start working with PT/OT Current Visit: Yes Status: Acute Priority: High Code(s): R53.1 - WEAKNESS SNOMED Code(s): 61452147 (6) Ascites Narrative/Plan: Dr. Beltran discussed with Attending. Multifactorial-lymphoma, treatment of lymphoma. Pt has received albumin, diruetics and she is being treated for lymphoma. No paracentesis planned at this time but, could be done for palliation of symptoms (counts are up) Current Visit: Yes Status: Acute Priority: Medium Code(s): R18.8 - OTHER ASCITES SNOMED Code(s): 922606871 Plan: Doctor attests: I performed a history and physical examination of this patient, developed impression and plan of care, discussed with dictator. I agree with dictators note, documented as a scribe.
[2019-05-09 17:05] LABS: Glucose,Whole Blood 149 mg/dL (75-99)
[2019-05-09 21:12] LABS: Glucose,Whole Blood 155 mg/dL (75-99)
[2019-05-10 05:42] LABS: Anisocytosis Slight; HCT 20.9 % (34.0-46.0); MCH 29.4 pg (25.0-35.0); MCHC 33.3 g/dL (31.0-37.0); MCV 88.3 fL (80.0-100.0); Poikilocytosis Slight; RBC 2.36 m/uL (3.80-5.40); RDW 16.5 % (11.5-15.5)
[2019-05-10 05:46] LABS: ALT 39 U/L (4-34); AST 32 U/L (14-36); African American GFR (CKD) >90 (>60 ml/min/1.73 sqM); Albumin 2.6 g/dL (3.5-5.0); Alkaline Phosphatase 153 U/L (38-126); Anion Gap 3 mmol/L; Blood Urea Nitrogen 28 mg/dL (7-17); Calcium 7.8 mg/dL (8.4-10.2); Carbon Dioxide 31 mmol/L (22-30); Chloride 103 mmol/L (98-107); Glucose 126 mg/dL (74-99); Non-African American GFR(CKD) 85 (>60 ml/min/1.73 sqM); Platelet Count 64 k/uL (150-450); Potassium 3.8 mmol/L (3.5-5.1); Sodium 137 mmol/L (137-145); Total Bilirubin 2.8 mg/dL (0.2-1.3); Total Protein 4.7 g/dL (6.3-8.2)
[2019-05-10 05:47] LABS: HGB 6.9 gm/dL (11.4-16.0)
[2019-05-10] MEDS ORDERED: POTASSIUM CHLORIDE ER 20 MEQ TAB.ER PO SCH (06:00)
[2019-05-10 06:05] LABS: Band Neutrophils % 6 %; Lymphocytes # (M) 1.35 k/uL (1.0-4.8); Monocytes # (M) 3.51 k/uL (0-1.0); Myelocytes # (M) 0.27 k/uL (0); Myelocytes % 1 %; Neutrophils % (M) 76 %; Nucleated Red Blood Cells 0 /100 WBC (0-0); Total Cells Counted 200
[2019-05-10] MEDS: MAG HYDROX/AL HYDROX/SIMETH 30 ML, LIDOCAINE VISCOUS 30 ML, diphenhydrAMINE ELIXIR 75 M... PO SCH ×16 (06:55→21:18)
[2019-05-10] MEDS: metFORMIN 500 MG TAB PO SCH ×2 (06:55→17:41)
[2019-05-10] MEDS: LEVOTHYROXINE 50 MCG TAB PO SCH (06:55)
[2019-05-10] MEDS: INSULIN ASPART (NovoLOG) 100 UNIT/ML VIAL SQ SCH ×3 (06:55→17:41)
[2019-05-10] MEDS: INSULIN NPH 300 UNIT/3 ML VIAL SQ SCH ×2 (06:56→17:41)
[2019-05-10 07:00] LABS: Glucose,Whole Blood 137 mg/dL (75-99)
--- NOTE | 2019-05-10 08:04 | XR ---
EXAMINATION TYPE: XR chest 1V portable DATE OF EXAM: 05/10/2019 COMPARISON: 05/08/2019 INDICATION: Pneumonia TECHNIQUE: Single frontal view of the chest is obtained. FINDINGS: The heart size is normal. The pulmonary vasculature is normal. Some minimal infiltrate may be along the lateral left diaphragm. Right central venous catheter is present with the tip in the right atrium. IMPRESSION: 1. Mild left lower lobe infiltrate. Correlate for atelectasis.
[2019-05-10] MEDS: PANTOPRAZOLE 40 MG TABLET PO SCH (08:40)
[2019-05-10] MEDS: CEFEPIME 2 GM in SODIUM CHLORIDE 0.9% 100 ML IVPB SCH ×2 (08:40→17:40)
[2019-05-10] MEDS: VENLAFAXINE HCL 75 MG TAB PO SCH (08:40)
[2019-05-10] MEDS: FUROSEMIDE 10 MG/ML 4 ML VIAL IV SCH ×2 (08:40→17:40)
[2019-05-10] MEDS: SPIRONOLACTONE 25 MG TAB PO SCH (08:40)
--- NOTE | 2019-05-10 10:37 | P.PN ---
Subjective Progress Note Date: 05/10/19 Principal diagnosis: Chemotherapy-induced pancytopenia and acute hemolytic anemia This is a 68-year-old female recently diagnosed with angioimmunoblastic T-cell lymphoma presented mostly with generalized lymphadenopathy and bone marrow involvement with one episode of tumor lysis syndrome. Her diagnosis was made by biopsy of a right sided supraclavicular lymph node. Patient was recently in the hospital, and she was treated for tumor lysis syndrome and pancytopenia. She re ceived aggressive course of chemotherapy during her hospital stay, and she was discharged home on 04/30/2019. Patient presented to the ER yesterday, 3 days after discharge from the hospital mostly with complaints of weakness. She was also noting yellow discoloration. She had no nausea or vomiting, no abdominal pain, she had no cough no wheezing no fever no chills no hemoptysis, she was just feeling generally weak. Workup in the ER showed a WBC count of 0.4, hemoglobin 4.7, and her hemoglobin was 7.7 on 04/30. She was also noted to have low platelets at 22,000. Lactic acid was noted to be 2.3, total bilirubin was noted to be up to 6.5 from 4.1 few days ago, alkaline phosphatase of 58, and LDH of 584 Calcium was 7.5. Reticulocyte count of 0.2. Chest x-ray showed evidence of right sided pleural effusion, and right lower lobe atelectasis and/or consolidation. Patient was admitted to the intensive care unit, started empirically on vancomycin and cefepime. Cultures are all pending. Fluids were given. And blood transfusion was ordered however it seems to be difficult to find compatible blood for this patient, and the process of blood transfusion is pending. Considering the patient was admitted to the ICU, I was asked to see her on consultation Reevaluated today on 05/05/2019, patient remains in the intensive care units. Hemodynamically stable, on room air, denies any shortness of breath, no cough no wheezing and no chest pain. Patient is sitting at a bedside chair, seems to be quite comfortable. She received so far a total of 5 units of packed RBCs for her profound anemia which was felt to be hemolytic in nature. Hemoglobin today is 6.2. Platelets remained low at 14,000. WBC count is 0.1. Basic metabolic profile is normal. Chest x-ray showed slight improvement in her right pleural effusion and right lower lobe atelectasis/infiltrate. Ultrasound of the abdomen showed moderate ascites. Patient remains on diuretics, and the dose was increased to Lasix 20 mg every 12 hours. Blood cultures remain negative so far from admission. Reevaluated today on 05/06/2019, patient remains in the ICU, remains on room air, hemoglobin is 6.2 today, however the patient is relatively asymptomatic. WBC count remains low, platelets remained low, patient isn't responding well to diuretics, remains on broad-spectrum antibiotics. No major change management administrator the last 24 hours. Patient did receive a total of 5 units of packed RBCs since admission, and her hemoglobin today is 6.2 platelets are 11,000. Basic metabolic profile and renal profile remained relatively normal. Reevaluated today on 05/07/2019, remains in the ICU, comfortable, on room air, in no distress, hemoglobin today is 6.0, platelets remained low, however WBC count is up to 1.6. Patient remains on diuretics, she has good urine output, and her overall anasarca seems to be improving. Remains on broad-spectrum antibiotics, cultures remain negative. Patient is being followed closely by hematology/oncology, and may or may not transfuse the patient with a unit of packed RBCs today this will be decided upon by hematology. So far the patient received a total of 5 units of packed RBCs since admission On 05/08/2019 patient seen in follow-up in the intensive care unit, she is resting comfortably in bed, she is currently on room air with a pulse ox of 93- 98%, she is afebrile, hemodynamically stable, she is on IV maintenance fluids of 0.9 normal saline at a rate of 25 ML per hour. Today's chest x-ray has been reviewed showing right lower lobe infiltrate versus atelectasis and associated pleural effusion. She remains on IV Lasix at 40 mg every 8 hours, and empiric antibiotics in the form of vancomycin and cefepime. Blood cultures have shown no growth, no cough or congestion, no convincing chest pain, Flovent status is improving, patient is in -1330 mL fluid balance over the last 24 hours. Today's labs have been reviewed, showing white blood cell count of 10.8, hemoglobin of 5.6, platelet count of 35, sodium is 140, potassium is 4.5, chloride is 108, BUN of 33, creatinine 0.71. Still has edema involving upper and lower extremities, but no complaints of shortness of breath or palpitations. Patient is receiving 1 unit of packed red blood cells today for hemoglobin of 5.6, no signs of active bleeding right now. On 05/09/2019 patient seen in follow-up in the intensive care unit, she is resting in bed, she is eating some breakfast this morning, her appetite is improving, still has significant generalized weakness, but somewhat improved, he states she was up in the chair, tolerated activity fairly well, currently she denies any complaints, no shortness of breath, room air pulse ox is 95%, she is afebrile, hemodynamically patient is stable. Sinus mechanism on the monitor with a controlled rate, IV fluids infusing at a rate of 25 ML per hour, no signs of active bleeding, today's hemoglobin is 7.4, patient has received a total of 7 units of packed red blood cells on this admission. On today's labs White blood cell count has slightly increased to 21.6, with a count is still pending at this time, on yesterday's labs he was 47, electrolytes are within normal limits, B1 is 32 creatinine 0.7. Denies shortness of breath, patient has significant anasarca, and ascites. Today's labs have been reviewed and patient's albumin level is 2.6. Liver enzymes are trending up on today's labs, with AST up to 37, ALT is 38, and alkaline phosphatase of 145. Continues on IV Lasix, and she is in -4 L over the last 24 hours, remains on cefepime and vancomycin for antibiotic coverage, has not had fever or chills The patient is seen today 05/10/2019 in follow-up in the intensive care unit. She is currently awake and alert in no acute distress. Up in a chair at the bedside. Feeling stronger today. On room air. She is received a total of 7 units of packed red blood cells this admission. Current hemoglobin 6.9. Receive an additional unit today. Platelet count 64,000. White count 27,000. Sodium 137. Potassium 3.8. Creatinine 0.74. Calcium 7.8. AST 32. ALT 39. Alk phos 153. She remains on IV diuretics. He continues with some abdominal fullness. Remains in a negative balance. Current weight 105.4 kg. Objective - Vital Signs Vital signs: Vital Signs Temp 97.8 F 05/10/19 08:00 Pulse 104 H 05/10/19 09:00 Resp 11 L 05/10/19 09:00 BP 130/60 05/10/19 09:00 Pulse Ox 94 L 05/10/19 09:00 Intake & Output 05/09/19 05/10/19 05/10/19 18:59 06:59 18:59 Intake Total 550 400 175 Output Total 2775 1700 400 Balance -3995 -1300 -225 Weight 105.4 kg Intake: IV 550 400 175 Albumin Human 25% 50 ml 50 In Empty Bag 1 bag @ 50 mls/hr IVPB ONCE ONE Rx#: [id number] Cefepime 2 gm In Sodium 200 100 100 Chloride 0.9% 100 ml @ 200 mls/hr IVPB Q8HR [facility] Rx#:[id number] Sodium Chloride 0.9% 1, 300 300 75 000 ml @ 25 mls/hr IV . Q24H [facility] Rx#:[id number] Output: Urine 2775 1700 400 Other: Voiding Method Bedside Commode Bedside Commode # Bowel Movements 1 - Exam GENERAL EXAM: Alert, very pleasant, 68-year-old female patient, on room air, feeling stronger today, up in a chair at the bedside, comfortable in no apparent distress. HEAD: Normocephalic/atraumatic. EYES: Normal reaction of pupils, equal size. Conjunctiva pink, sclera white. NOSE: Clear with pink turbinates. THROAT: No erythema or exudates. NECK: No masses, no JVD, no thyroid enlargement, no adenopathy. CHEST: No chest wall deformity. Symmetrical expansion. LUNGS: Equal air entry with no crackles, wheeze, rhonchi or dullness. CVS: Regular rate and rhythm, normal S1 and S2, no gallops, no murmurs, no rubs ABDOMEN: Soft, patient has abdominal ascites. No hepatosplenomegaly, normal bowel sounds, no guarding or rigidity. EXTREMITIES: No clubbing, 1+ upper and lower extremity edema, no cyanosis, 2+ pulses and upper and lower extremities. MUSCULOSKELETAL: Muscle strength and tone normal. SPINE: No scoliosis or deformity SKIN: No rashes CENTRAL NERVOUS SYSTEM: No focal deficits, tone is normal in all 4 extremities. PSYCHIATRIC: Alert and oriented -3. Appropriate affect. Intact judgment and insight. - Labs CBC & Chem 7: 05/10/19 05:25 05/10/19 05:25 Labs: Abnormal Lab Results - Last 24 Hours (Table) 05/07/19 05/09/19 05/09/19 Range/Units 10:58 12:09 16:53 WBC (3.8-10.6) k/uL RBC (3.80-5.40) m/uL Hgb (11.4-16.0) gm/dL Hct (34.0-46.0) % RDW (11.5-15.5) % Plt Count (150-450) k/uL Neutrophils # (Manual) (1.3-7.7) k/uL Monocytes # (Manual) (0-1.0) k/uL Myelocytes # (Manual) (0) k/uL Carbon Dioxide (22-30) mmol/L BUN (7-17) mg/dL Glucose (74-99) mg/dL POC Glucose (mg/dL) 146 H 149 H (75-99) mg/dL Calcium (8.4-10.2) mg/dL Total Bilirubin (0.2-1.3) mg/dL ALT (4-34) U/L Alkaline Phosphatase (38-126) U/L Total Protein (6.3-8.2) g/dL Albumin (3.5-5.0) g/dL Crossmatch See Detail Reference Lab Result See [facility] REF Reports A 05/09/19 05/10/19 05/10/19 Range/Units 21:00 05:25 05:25 WBC 27.0 H (3.8-10.6) k/uL RBC 2.36 L (3.80-5.40) m/uL Hgb 6.9 L* (11.4-16.0) gm/dL Hct 20.9 L (34.0-46.0) % RDW 16.5 H (11.5-15.5) % Plt Count 64 L (150-450) k/uL Neutrophils # (Manual) 22.10 H (1.3-7.7) k/uL Monocytes # (Manual) 3.51 H (0-1.0) k/uL Myelocytes # (Manual) 0.27 H (0) k/uL Carbon Dioxide 31 H (22-30) mmol/L BUN 28 H (7-17) mg/dL Glucose 126 H (74-99) mg/dL POC Glucose (mg/dL) 155 H (75-99) mg/dL Calcium 7.8 L (8.4-10.2) mg/dL Total Bilirubin 2.8 H (0.2-1.3) mg/dL ALT 39 H (4-34) U/L Alkaline Phosphatase 153 H (38-126) U/L Total Protein 4.7 L (6.3-8.2) g/dL Albumin 2.6 L (3.5-5.0) g/dL Crossmatch Reference Lab Result 05/10/19 Range/Units 06:48 WBC (3.8-10.6) k/uL RBC (3.80-5.40) m/uL Hgb (11.4-16.0) gm/dL Hct (34.0-46.0) % RDW (11.5-15.5) % Plt Count (150-450) k/uL Neutrophils # (Manual) (1.3-7.7) k/uL Monocytes # (Manual) (0-1.0) k/uL Myelocytes # (Manual) (0) k/uL Carbon Dioxide (22-30) mmol/L BUN (7-17) mg/dL Glucose (74-99) mg/dL POC Glucose (mg/dL) 137 H (75-99) mg/dL Calcium (8.4-10.2) mg/dL Total Bilirubin (0.2-1.3) mg/dL ALT (4-34) U/L Alkaline Phosphatase (38-126) U/L Total Protein (6.3-8.2) g/dL Albumin (3.5-5.0) g/dL Crossmatch Reference Lab Result Microbiology - Last 24 Hours (Table) 05/03/19 19:08 Blood Culture - Final Blood No Growth after 144 hours 05/03/19 19:08 Blood Culture - Final Blood No Growth after 144 hours Assessment and Plan Assessment: #1. Chemotherapy induced pancytopenia, improving #2. Recurrent anemia, acute hemolytic in nature, also associated with bone marrow suppression secondary to chemotherapy, status post transfusion with 7 units of packed red blood cells this admission #3. Neutropenic sepsis patient continues on empiric broad-spectrum antibiotics #4. Possible right lower lobe pneumonia with parapneumonic effusion, his chest x-ray shows stable findings of right lower lobe atelectasis/infiltrate with small parapneumonic effusion on the right #5. History of tumor lysis syndrome, noted on her last admission/resolved #6. History of breast cancer previous lumpectomy #7. Multiple comorbidities including hypertension, hyperlipidemia, hypothyroidism, and type 2 diabetes #8. Angioimmunoblastic T-cell lymphoma #9. Ascites Plan: The patient was seen and evaluated by Dr. Stover. She is to receive an additional unit of packed red blood cells today for hemoglobin of 6.9. She remains on IV diuretics. Up in a chair at the bedside. Stronger today. On room air. We'll continue to follow. I, the cosigning physician, performed a history & physical examination of the patient. Lungs sounds are clear. Maintaining good O2 saturations in the 90s on room air. I discussed the assessment and plan of care with my nurse practitioner, Jessi Ríos. I attest to the above note as dictated by her.
[2019-05-10 12:00] LABS: Glucose,Whole Blood 150 mg/dL (75-99)
[2019-05-10 16:58] LABS: Glucose,Whole Blood 170 mg/dL (75-99)
[2019-05-10 20:54] LABS: Glucose,Whole Blood 214 mg/dL (75-99)
[2019-05-11] MEDS: CEFEPIME 2 GM in SODIUM CHLORIDE 0.9% 100 ML IVPB SCH ×4 (01:04→23:36)
[2019-05-11] MEDS: FUROSEMIDE 10 MG/ML 4 ML VIAL IV SCH ×4 (01:05→23:36)
[2019-05-11] MEDS: MAG HYDROX/AL HYDROX/SIMETH 30 ML, LIDOCAINE VISCOUS 30 ML, diphenhydrAMINE ELIXIR 75 M... PO SCH ×24 (01:05→23:39)
[2019-05-11] MEDS: SODIUM CHLORIDE 0.9% 1,000 ML IV SCH (05:15)
[2019-05-11 06:03] LABS: ALT 37 U/L (4-34); AST 37 U/L (14-36); African American GFR (CKD) >90 (>60 ml/min/1.73 sqM); Albumin 2.5 g/dL (3.5-5.0); Alkaline Phosphatase 179 U/L (38-126); Anion Gap 4 mmol/L; Blood Urea Nitrogen 25 mg/dL (7-17); Calcium 7.8 mg/dL (8.4-10.2); Carbon Dioxide 32 mmol/L (22-30); Chloride 101 mmol/L (98-107); Glucose 116 mg/dL (74-99); Non-African American GFR(CKD) 83 (>60 ml/min/1.73 sqM); Potassium 3.7 mmol/L (3.5-5.1); Sodium 137 mmol/L (137-145); Total Bilirubin 3.1 mg/dL (0.2-1.3); Total Protein 4.7 g/dL (6.3-8.2)
[2019-05-11 06:04] LABS: Anisocytosis Slight; HCT 22.3 % (34.0-46.0); HGB 7.4 gm/dL (11.4-16.0); MCH 28.8 pg (25.0-35.0); MCHC 33.2 g/dL (31.0-37.0); MCV 86.7 fL (80.0-100.0); Mean Platelet Volume 11.7; RBC 2.57 m/uL (3.80-5.40); RDW 17.8 % (11.5-15.5); WBC 29.9 k/uL (3.8-10.6)
[2019-05-11 06:06] LABS: Platelet Count 70 k/uL (150-450)
[2019-05-11 06:26] LABS: Band Neutrophils % 13 %; Metamyelocytes # (M) 2.39 k/uL (0); Metamyelocytes % 8 %; Myelocytes % 2 %; Neutrophils % (M) 75 %; Nucleated Red Blood Cells 0 /100 WBC (0-0); Total Cells Counted 100
[2019-05-11] MEDS: LEVOTHYROXINE 50 MCG TAB PO SCH (06:36)
[2019-05-11 06:58] LABS: Glucose,Whole Blood 132 mg/dL (75-99)
[2019-05-11] MEDS: metFORMIN 500 MG TAB PO SCH ×2 (06:59→18:06)
[2019-05-11] MEDS: INSULIN ASPART (NovoLOG) 100 UNIT/ML VIAL SQ SCH ×3 (07:00→17:12)
[2019-05-11] MEDS: INSULIN NPH 300 UNIT/3 ML VIAL SQ SCH ×2 (07:00→18:07)
[2019-05-11] MEDS ORDERED: POTASSIUM CHLORIDE ER 20 MEQ TAB.ER PO SCH (07:00)
[2019-05-11] MEDS: PANTOPRAZOLE 40 MG TABLET PO SCH (08:50)
[2019-05-11] MEDS: SPIRONOLACTONE 25 MG TAB PO SCH (08:50)
[2019-05-11] MEDS: VENLAFAXINE HCL 75 MG TAB PO SCH (08:51)
--- NOTE | 2019-05-11 09:02 | P.PN ---
Subjective Progress Note Date: 05/11/19 Principal diagnosis: Chemotherapy-induced pancytopenia and acute hemolytic anemia This is a 68-year-old female recently diagnosed with angioimmunoblastic T-cell lymphoma presented mostly with generalized lymphadenopathy and bone marrow involvement with one episode of tumor lysis syndrome. Her diagnosis was made by biopsy of a right sided supraclavicular lymph node. Patient was recently in the hospital, and she was treated for tumor lysis syndrome and pancytopenia. She re ceived aggressive course of chemotherapy during her hospital stay, and she was discharged home on 04/30/2019. Patient presented to the ER yesterday, 3 days after discharge from the hospital mostly with complaints of weakness. She was also noting yellow discoloration. She had no nausea or vomiting, no abdominal pain, she had no cough no wheezing no fever no chills no hemoptysis, she was just feeling generally weak. Workup in the ER showed a WBC count of 0.4, hemoglobin 4.7, and her hemoglobin was 7.7 on 04/30. She was also noted to have low platelets at 22,000. Lactic acid was noted to be 2.3, total bilirubin was noted to be up to 6.5 from 4.1 few days ago, alkaline phosphatase of 58, and LDH of 584 Calcium was 7.5. Reticulocyte count of 0.2. Chest x-ray showed evidence of right sided pleural effusion, and right lower lobe atelectasis and/or consolidation. Patient was admitted to the intensive care unit, started empirically on vancomycin and cefepime. Cultures are all pending. Fluids were given. And blood transfusion was ordered however it seems to be difficult to find compatible blood for this patient, and the process of blood transfusion is pending. Considering the patient was admitted to the ICU, I was asked to see her on consultation Reevaluated today on 05/05/2019, patient remains in the intensive care units. Hemodynamically stable, on room air, denies any shortness of breath, no cough no wheezing and no chest pain. Patient is sitting at a bedside chair, seems to be quite comfortable. She received so far a total of 5 units of packed RBCs for her profound anemia which was felt to be hemolytic in nature. Hemoglobin today is 6.2. Platelets remained low at 14,000. WBC count is 0.1. Basic metabolic profile is normal. Chest x-ray showed slight improvement in her right pleural effusion and right lower lobe atelectasis/infiltrate. Ultrasound of the abdomen showed moderate ascites. Patient remains on diuretics, and the dose was increased to Lasix 20 mg every 12 hours. Blood cultures remain negative so far from admission. Reevaluated today on 05/06/2019, patient remains in the ICU, remains on room air, hemoglobin is 6.2 today, however the patient is relatively asymptomatic. WBC count remains low, platelets remained low, patient isn't responding well to diuretics, remains on broad-spectrum antibiotics. No major slubber frame changer the last 24 hours. Patient did receive a total of 5 units of packed RBCs since admission, and her hemoglobin today is 6.2 platelets are 11,000. Basic metabolic profile and renal profile remained relatively normal. Reevaluated today on 05/07/2019, remains in the ICU, comfortable, on room air, in no distress, hemoglobin today is 6.0, platelets remained low, however WBC count is up to 1.6. Patient remains on diuretics, she has good urine output, and her overall anasarca seems to be improving. Remains on broad-spectrum antibiotics, cultures remain negative. Patient is being followed closely by hematology/oncology, and may or may not transfuse the patient with a unit of packed RBCs today this will be decided upon by hematology. So far the patient received a total of 5 units of packed RBCs since admission On 05/08/2019 patient seen in follow-up in the intensive care unit, she is resting comfortably in bed, she is currently on room air with a pulse ox of 93- 98%, she is afebrile, hemodynamically stable, she is on IV maintenance fluids of 0.9 normal saline at a rate of 25 ML per hour. Today's chest x-ray has been reviewed showing right lower lobe infiltrate versus atelectasis and associated pleural effusion. She remains on IV Lasix at 40 mg every 8 hours, and empiric antibiotics in the form of vancomycin and cefepime. Blood cultures have shown no growth, no cough or congestion, no convincing chest pain, Flovent status is improving, patient is in -1330 mL fluid balance over the last 24 hours. Today's labs have been reviewed, showing white blood cell count of 10.8, hemoglobin of 5.6, platelet count of 35, sodium is 140, potassium is 4.5, chloride is 108, BUN of 33, creatinine 0.71. Still has edema involving upper and lower extremities, but no complaints of shortness of breath or palpitations. Patient is receiving 1 unit of packed red blood cells today for hemoglobin of 5.6, no signs of active bleeding right now. On 05/09/2019 patient seen in follow-up in the intensive care unit, she is resting in bed, she is eating some breakfast this morning, her appetite is improving, still has significant generalized weakness, but somewhat improved, he states she was up in the chair, tolerated activity fairly well, currently she denies any complaints, no shortness of breath, room air pulse ox is 95%, she is afebrile, hemodynamically patient is stable. Sinus mechanism on the monitor with a controlled rate, IV fluids infusing at a rate of 25 ML per hour, no signs of active bleeding, today's hemoglobin is 7.4, patient has received a total of 7 units of packed red blood cells on this admission. On today's labs White blood cell count has slightly increased to 21.6, with a count is still pending at this time, on yesterday's labs he was 47, electrolytes are within normal limits, B1 is 32 creatinine 0.7. Denies shortness of breath, patient has significant anasarca, and ascites. Today's labs have been reviewed and patient's albumin level is 2.6. Liver enzymes are trending up on today's labs, with AST up to 37, ALT is 38, and alkaline phosphatase of 145. Continues on IV Lasix, and she is in -4 L over the last 24 hours, remains on cefepime and vancomycin for antibiotic coverage, has not had fever or chills On over 05/11/2019 is seen in follow-up in the intensive care unit, she is resting comfortably in bed, she is no acute distress, room air pulse ox is 93%, she is afebrile, hemodynamically patient is stable, 0.9 normal saline infusing at a rate of 25 ML per hour, patient has received a total of 8 units of packed red blood cells this admission, her hemoglobin today 7.4, white count is 29.9, count has increased to 70, sodium is 137, potassium 3.7, chloride is 101, CO2 32, BUN is 25 creatinine 0.75. Appetite has slightly improved, nausea vomiting or diarrhea. Cultures show no growth. She denies shortness of breath, today's chest x-ray shows mild left lower lobe infiltrate, possibly related to atelectasis. He is on IV Lasix of 40 mg every 8 hours, and empiric antibiotic coverage in the form of cefepime and vancomycin, tingling negative fluid balance, she is in -3525 ML over last 24 hours, lower extremity edema is improving, fluid status is improving, still has significant generalized swelling and abdominal ascites. Objective - Vital Signs Vital signs: Vital Signs Temp 98.6 F 05/11/19 04:00 Pulse 89 05/11/19 04:00 Resp 24 05/11/19 04:00 BP 110/69 05/11/19 04:00 Pulse Ox 93 L 05/11/19 04:00 Intake & Output 05/10/19 05/11/19 05/11/19 18:59 06:59 18:59 Intake Total 585 1360 Output Total 1000 2300 Balance -415 -940 Weight 103.7 kg Intake: IV 275 400 Cefepime 2 gm In Sodium 100 100 Chloride 0.9% 100 ml @ 200 mls/hr IVPB Q8HR [facility] Rx#:[id number] Sodium Chloride 0.9% 1, 175 300 000 ml @ 25 mls/hr IV . Q24H [facility] Rx#:[id number] Oral 960 Blood Product 310 Rc Irr As1 Unit 310 [id number] Output: Urine 1000 1400 Urine/Stool Mix 900 Other: Voiding Method Bedside Commode Bedside Commode # Voids 2 # Bowel Movements 2 3 - Exam GENERAL EXAM: Alert, very pleasant, 68-year-old white female, on room air, resting comfortably in bed, generally weak, comfortable in no apparent distress. HEAD: Normocephalic/atraumatic. EYES: Normal reaction of pupils, equal size. Conjunctiva pink, sclera white. NOSE: Clear with pink turbinates. THROAT: No erythema or exudates. NECK: No masses, no JVD, no thyroid enlargement, no adenopathy. CHEST: No chest wall deformity. Symmetrical expansion. LUNGS: Equal air entry with no crackles, wheeze, rhonchi or dullness. CVS: Regular rate and rhythm, normal S1 and S2, no gallops, no murmurs, no rubs ABDOMEN: Soft, patient has abdominal ascites. No hepatosplenomegaly, normal bowel sounds, no guarding or rigidity. EXTREMITIES: No clubbing, 1+ upper and lower extremity edema, no cyanosis, 2+ pulses and upper and lower extremities. MUSCULOSKELETAL: Muscle strength and tone normal. SPINE: No scoliosis or deformity SKIN: No rashes CENTRAL NERVOUS SYSTEM: Alert and oriented -3. No focal deficits, tone is normal in all 4 extremities. PSYCHIATRIC: Alert and oriented -3. Appropriate affect. Intact judgment and insight. - Labs CBC & Chem 7: 05/11/19 05:10 05/11/19 05:10 Labs: Abnormal Lab Results - Last 24 Hours (Table) 05/07/19 05/10/19 05/10/19 Range/Units 10:58 11:48 16:47 WBC (3.8-10.6) k/uL RBC (3.80-5.40) m/uL Hgb (11.4-16.0) gm/dL Hct (34.0-46.0) % RDW (11.5-15.5) % Plt Count (150-450) k/uL Neutrophils # (Manual) (1.3-7.7) k/uL Metamyelocytes # (Man) (0) k/uL Myelocytes # (Manual) (0) k/uL Carbon Dioxide (22-30) mmol/L BUN (7-17) mg/dL Glucose (74-99) mg/dL POC Glucose (mg/dL) 150 H 170 H (75-99) mg/dL Calcium (8.4-10.2) mg/dL Total Bilirubin (0.2-1.3) mg/dL AST (14-36) U/L ALT (4-34) U/L Alkaline Phosphatase (38-126) U/L Total Protein (6.3-8.2) g/dL Albumin (3.5-5.0) g/dL Crossmatch See Detail Reference Lab Result See [facility] REF Reports A 05/10/19 05/11/19 05/11/19 Range/Units 20:43 05:10 05:10 WBC 29.9 H (3.8-10.6) k/uL RBC 2.57 L (3.80-5.40) m/uL Hgb 7.4 L (11.4-16.0) gm/dL Hct 22.3 L (34.0-46.0) % RDW 17.8 H (11.5-15.5) % Plt Count 70 L (150-450) k/uL Neutrophils # (Manual) 26.30 H (1.3-7.7) k/uL Metamyelocytes # (Man) 2.39 H (0) k/uL Myelocytes # (Manual) 0.60 H (0) k/uL Carbon Dioxide 32 H (22-30) mmol/L BUN 25 H (7-17) mg/dL Glucose 116 H (74-99) mg/dL POC Glucose (mg/dL) 214 H (75-99) mg/dL Calcium 7.8 L (8.4-10.2) mg/dL Total Bilirubin 3.1 H (0.2-1.3) mg/dL AST 37 H (14-36) U/L ALT 37 H (4-34) U/L Alkaline Phosphatase 179 H (38-126) U/L Total Protein 4.7 L (6.3-8.2) g/dL Albumin 2.5 L (3.5-5.0) g/dL Crossmatch Reference Lab Result 05/11/19 Range/Units 06:47 WBC (3.8-10.6) k/uL RBC (3.80-5.40) m/uL Hgb (11.4-16.0) gm/dL Hct (34.0-46.0) % RDW (11.5-15.5) % Plt Count (150-450) k/uL Neutrophils # (Manual) (1.3-7.7) k/uL Metamyelocytes # (Man) (0) k/uL Myelocytes # (Manual) (0) k/uL Carbon Dioxide (22-30) mmol/L BUN (7-17) mg/dL Glucose (74-99) mg/dL POC Glucose (mg/dL) 132 H (75-99) mg/dL Calcium (8.4-10.2) mg/dL Total Bilirubin (0.2-1.3) mg/dL AST (14-36) U/L ALT (4-34) U/L Alkaline Phosphatase (38-126) U/L Total Protein (6.3-8.2) g/dL Albumin (3.5-5.0) g/dL Crossmatch Reference Lab Result Assessment and Plan Plan: Assessment: #1. Chemotherapy induced pancytopenia, improving #2. Recurrent anemia, acute hemolytic in nature, also associated with bone marrow suppression secondary to chemotherapy, status post transfusion with 7 units of packed red blood cells this admission #3. Neutropenic sepsis patient continues on empiric broad-spectrum antibiotics #4. Possible right lower lobe pneumonia with parapneumonic effusion, his chest x-ray shows stable findings of right lower lobe atelectasis/infiltrate with small parapneumonic effusion on the right #5. History of tumor lysis syndrome, noted on her last admission/resolved #6. History of breast cancer previous lumpectomy #7. Multiple comorbidities including hypertension, hyperlipidemia, hypothyroidism, and type 2 diabetes #8. Angioimmunoblastic T-cell lymphoma #9. Ascites Plan: Continue with current management, continue IV Lasix, fluid volume status is improving, still has significant generalized swelling and abdominal ascites. Today's labs have been noted, no new chest x-rays today, yesterday's chest x-ray shows a left basilar atelectasis. Hemodynamically patient is stable, she is on room air, increase activity as tolerated, encourage oral intake. Continue current antibiotics, so far cultures are negative, no fever or chills, we'll continue to follow, patient is stable to transfer out of the ICU to oncology floor or to general medical floor today. I performed a history & physical examination of the patient and discussed their management with my nurse practitioner, Rosemary Junior. I reviewed the nurse practitioner's note and agree with the documented findings and plan of care. Lung sounds are positive for diminished lung neri. The findings and the impression was discussed with the patient. I attest to the documentation by the nurse practitioner. Time with Patient: Less than 30
--- NOTE | 2019-05-11 11:09 | P.PN ---
Subjective Progress Note Date: 05/11/19 This is a 68-year-old female patient Dr Gaffney with a previous medical history significant for new diagnosed angioimmunoblastic T-cell lymphoma which was diagnosed 04/25/2019, along with tumor lysis syndrome, hypertension and hypertensive cardiovascular disease, hyperlipidemia, new diagnosis of diabetes mellitus type 2, history of breast cancer status post right lumpectomy with radiation therapy, diverticulosis, hypothyroidism, was started on chemotherapy Cytoxan, etoposide and prednisone. She was discharged to home 04/30/2019, with a total bili of 4.1 comes in to the emergency room with significant jaundice of 2 days' duration, increasing weakness, and severe anemia. Diminished appetite, increasing abdominal distention, and increasing dependent edema legs patient denies any palpitations or chest pain or pleurisy, no melena and hematochezia Emergency room, she has a WBC count of 0.2, hemoglobin 4.7, platelet count of 22 INR of 1.2, creatinine 0.5, total bilirubin of 6.5 from a previous number of 4.12 days ago.. Patient admitted to the ICU secondary to severe anemia and jau ndice, this could be related to out to immune hemolytic anemia, oncology is on consult, Dr. Patrick is on consult for pulmonary medicine 2 units of packed red blood cells irradiated blood is currently being infused, possibility of right lower lobe pneumonia and parapneumonic effusion, started on IV antibiotic 05/05: Patient is still in ICU, feels more short of breath, hemoglobin currently is at 6.2, platelet count of 14, 7.1, patient has no shortness of breath or palpitations, still has diminished appetite, vital signs are stable in ICU, ultrasound shows moderate ascites, has dependent edema with anasarca will going to transfuse 1 unit of packed red blood cells irradiated blood, along with i ncrease in the furosemide to 20 mg every 12 hours. Caution for hypotension, as her protein stores are low, with ongoing sepsiswill going to transfuse 1 unit of packed red blood cells irradiated blood, along with decrease in the torsemide to 20 mg every 12 h we will request dr lord to see her for physcial deconditioning , eval for IP rehab, will request PT OT eval 05/06: Patient remains in ICU, hemoglobin of 6.2, more edema noted today, more abdominal distention today, however she still comfortable with her abdomen, platelet count is still low at 11, no plan for rbc transfusion today per onc ology, we'll going to discontinue amlodipine and lisinopril to allow more diuretic use, increase furosemide to 40 mg every 12 hours, continued Aldactone 25, she remains on Prandin, and dexamethasone, blood sugars are between 182-212, creatinine 0.56. Patient does not have any chest pain, no palpitations, no insomnia, she is on supplement 3 times a day at 60 g of protein per day along with her meals, albumin is low at 2.5, blood pressure 110-120 systolic 05/07, patient's demise in ICU, hemoglobin 6.0, still edematous, legs and arms bilaterally, anasarca still, no shortness of breath no palpitations, blood pressure is stable for increasing doses of Lasix adjusted to 40 every 8 hours,, has been off Lotrel patient would have an Conrado wrap today, and 1 unit of packed red blood cells today per oncology, no diarrhea, blood sugars ranging between 179-228, no change in Prandin, bilirubin now lower at 3.3, 05/08 patient evaluated bedside had a hemoglobin of 5.6 status post 2 units of packed red blood cells irradiated Repeat hemoglobin pending. Blood sugar under control patient has completed Decadron and 16 doses last night. Total bilirubin has improved to 2.6. Vitals assessed suggested temp of 97.9 pulse 15 blood pressure 122/71 saturating well on room air. Patient appears to be jorge matous in the lower extremities is otherwise doing well describes increased lethargy and is due for her second cycle on May 16. Started on Lasix 40 every 8 hours. Chest x-ray did show some concern for right lower lobe infiltrate versus atelectasis. Empiric antibiotic in the form of vancomycin and cefepime started blood culture so far negative patient evaluated bedside hemoglobin stable at 7.4 patient has a leukocytosis of 20.6. Continue on Lasix 40 IV every 8 with Aldactone 25 mg by mouth daily. Patient feels weak denies any shortness of breath or abdominal. Patient has bilateral lower extremity edema wrapped in Conrado wraps improved. Abdomen appears distended but patient denies any constipation, feeling of fullness. Patient received 1 dose of albumin for a low albumin today /2: Patient has improvement of the lower extremity edema from yesterday. She has been eating Magic cups. She continues to have abdominal loading for which a therapeutic paracentesis will be ordered. Pro-calcitonin ordered to rule out pneumonia. Blood sugars are in the 200s and NPH will be increased to 10 units twice daily. Patient remains in the intensive care unit but has been cleared by Dr. Hurley for transfer to the oncology unit. She has been afebrile, blood pressure 116/62, pulse ox 94% on room air. She denies shortness of breath. Hemoglobin stable at 7.4, WBC 29.9, platelet count 70. Liver enzymes remain elevated with AST 37, ALT 37, alkaline phosphatase 179. Anticipate possible discharge in the next 24-48 hours. Review of Systems Constitutional: Denies chills, Denies fever, endorses lethargic Eyes: denies decreased vision, denies diplopia, denies discharge, denies pain Ears: deny: decreased hearing Ears, nose, mouth and throat: Denies dental pain, Denies headache, Denies nasal discharge, Denies nose pain Cardiovascular: Denies chest pain, Denies decreased exercise tolerance, Denies edema, Denies high blood pressure, Denies irregular heart beat, Denies palpitations, Denies paroxysmal nocturnal dyspnea, Denies rapid heart beat, D enies shortness of breath bilateral lower extremity edema positive-improving Respiratory: Denies congestion, Denies cough, Denies cough with sputum, Denies dyspnea, Denies home oxygen, Denies wheezing Gastrointestinal: Denies abdominal pain, Denies change in bowel habits, Denies coffee ground emesis, Denies early satiety, Denies excessive gas, Denies heartburn, Denies hematemesis, Denies hematochezia, Denies loss of appetite, Denies nausea, Denies vomiting abdomen bloated Genitourinary: Denies dysuria, Denies flank pain, Denies kidney stones, Denies menorrhagia, Denies urgency, Denies urinary frequency Musculoskeletal: Denies gait dysfunction, Denies limitation of motion, Denies morning stiffness, Denies muscle cramps Integumentary: Denies rash, Denies wounds, Denies brittle nails, Denies change in hair/nails, Denies darkening of skin Neurological: Denies balance difficulties, Denies change in speech, Denies double vision, Denies gait dysfunction, Denies loss of vision, Denies motor disturbance, Denies numbness, Denies paralysis, Denies paresthesias, Denies seizures Psychiatric: Denies anxiety, Denies depression Endocrine: Denies excessive sweating, Denies excessive thirst, Denies high blood sugars, Denies palpitations Hematologic/Lymphatic: Denies easy bruising, Denies lymphadenopathy Objective - Vital Signs Vital signs: Vital Signs Temp 98.4 F 05/11/19 08:00 Pulse 88 05/11/19 08:00 Resp 13 05/11/19 08:00 BP 116/62 05/11/19 08:00 Pulse Ox 94 L 05/11/19 08:00 Intake & Output 05/10/19 05/11/19 05/11/19 18:59 06:59 18:59 Intake Total 585 1360 100 Output Total 1000 2300 1200 Balance -415 -940 -1100 Weight 103.7 kg Intake: IV 275 400 100 Cefepime 2 gm In Sodium 100 100 Chloride 0.9% 100 ml @ 200 mls/hr IVPB Q8HR [facility] Rx#:[id number] Sodium Chloride 0.9% 1, 175 300 100 000 ml @ 25 mls/hr IV . Q24H [facility] Rx#:[id number] Oral 960 Blood Product 310 Rc Irr As1 Unit 310 [id number] Output: Urine 1000 1400 1200 Urine/Stool Mix 900 Other: Voiding Method Bedside Commode Bedside Commode # Voids 2 # Bowel Movements 2 3 - Exam - Constitutional General appearance: cooperative, no acute distress, obese - EENT Eyes: Icteric sclerae, PERRLA, normal appearance ENT: hearing grossly normal - Neck Neck: no lymphadenopathy, normal ROM, no other, no rigidity, no stridor, no thyromegaly - Respiratory Respiratory: bilateral: Decreased air entry bilaterally - Cardiovascular Rhythm: regular Heart sounds: normal: S1, S2 Abnormal Heart Sounds: no systolic murmur, no diastolic murmur, no rub General gastrointestinal: normal bowel sounds, soft, appears bloated - Integumentary Integumentary: no rash - Neurologic Neurologic: CNII-XII intact - Musculoskeletal Musculoskeletal: gait not assessed strength equal bilaterally 1+ bilateral edema. - Psychiatric Psychiatric: A&O x's 3, appropriate affect - Labs CBC & Chem 7: 05/11/19 05:10 05/11/19 05:10 Labs: Abnormal Lab Results - Last 24 Hours (Table) 05/07/19 05/10/19 05/10/19 Range/Units 10:58 11:48 16:47 WBC (3.8-10.6) k/uL RBC (3.80-5.40) m/uL Hgb (11.4-16.0) gm/dL Hct (34.0-46.0) % RDW (11.5-15.5) % Plt Count (150-450) k/uL Neutrophils # (Manual) (1.3-7.7) k/uL Metamyelocytes # (Man) (0) k/uL Myelocytes # (Manual) (0) k/uL Carbon Dioxide (22-30) mmol/L BUN (7-17) mg/dL Glucose (74-99) mg/dL POC Glucose (mg/dL) 150 H 170 H (75-99) mg/dL Calcium (8.4-10.2) mg/dL Total Bilirubin (0.2-1.3) mg/dL AST (14-36) U/L ALT (4-34) U/L Alkaline Phosphatase (38-126) U/L Total Protein (6.3-8.2) g/dL Albumin (3.5-5.0) g/dL Crossmatch See Detail Reference Lab Result See [facility] REF Reports A 05/10/19 05/11/19 05/11/19 Range/Units 20:43 05:10 05:10 WBC 29.9 H (3.8-10.6) k/uL RBC 2.57 L (3.80-5.40) m/uL Hgb 7.4 L (11.4-16.0) gm/dL Hct 22.3 L (34.0-46.0) % RDW 17.8 H (11.5-15.5) % Plt Count 70 L (150-450) k/uL Neutrophils # (Manual) 26.30 H (1.3-7.7) k/uL Metamyelocytes # (Man) 2.39 H (0) k/uL Myelocytes # (Manual) 0.60 H (0) k/uL Carbon Dioxide 32 H (22-30) mmol/L BUN 25 H (7-17) mg/dL Glucose 116 H (74-99) mg/dL POC Glucose (mg/dL) 214 H (75-99) mg/dL Calcium 7.8 L (8.4-10.2) mg/dL Total Bilirubin 3.1 H (0.2-1.3) mg/dL AST 37 H (14-36) U/L ALT 37 H (4-34) U/L Alkaline Phosphatase 179 H (38-126) U/L Total Protein 4.7 L (6.3-8.2) g/dL Albumin 2.5 L (3.5-5.0) g/dL Crossmatch Reference Lab Result 05/11/19 Range/Units 06:47 WBC (3.8-10.6) k/uL RBC (3.80-5.40) m/uL Hgb (11.4-16.0) gm/dL Hct (34.0-46.0) % RDW (11.5-15.5) % Plt Count (150-450) k/uL Neutrophils # (Manual) (1.3-7.7) k/uL Metamyelocytes # (Man) (0) k/uL Myelocytes # (Manual) (0) k/uL Carbon Dioxide (22-30) mmol/L BUN (7-17) mg/dL Glucose (74-99) mg/dL POC Glucose (mg/dL) 132 H (75-99) mg/dL Calcium (8.4-10.2) mg/dL Total Bilirubin (0.2-1.3) mg/dL AST (14-36) U/L ALT (4-34) U/L Alkaline Phosphatase (38-126) U/L Total Protein (6.3-8.2) g/dL Albumin (3.5-5.0) g/dL Crossmatch Reference Lab Result Assessment and Plan Plan: 1. Severe pancytopenia, recent chemotherapy for T-cell lymphoma with hemolytic anemia, severe jaundice, status post 8 units packed red blood cell. Oncology is following, pulmonary following. Transfer to oncology unit. 2. Angioimmunoblastic T-cell lymphoma T-cell lymphoma CD30 (final pathologic report with [facility]) due to her malignancy. Oncology consult on chemotherapy and plan for bone marrow transplant in future, chemotherapy initiated with etoposide, doxorubicin, vincristine and cyclophosphamide pathology suggestive angioimmunoblastic T-cell lymphoma Completed dexamethasone 10 mg every 6 hours on we'll restart on 05/12. Severe jaundice, unconjugated bilirubin fractionation, suspect hemolytic anemia. Oncology has been consulted avoid transfusion with incompatible packed red blood cells, IV hydration dexamethasone completed 4. Anasarca, with abdominal distention, moderate ascites, worsening edema, continue IV Lasix 40mg every 8 hours, continue protein supplementation with diet, paracentesis ordered for IR, Aldactone 25 mg daily. 5. Gram-negative pneumonia possibility, patient is on cefepime, off vancomycin, Dr. Byrd pulmonary medicine 6. Tumor lysis syndrome hx. Oncology is following. Patient is status post Elitek. 7. Diabetes mellitus type 2, uncontrolled with hyperglycemia secondary to steroids. Continue NovoLog scale and NPH increased to 10 twice a day 8. Hyperlipidemia. Discontinue Crestor for now. Secondary to severe jaundice 9. Hypothyroidism. Continue Synthroid increased to 75 g orally once every day. 10. Diverticulosis. Colonoscopy is up-to-date. 11. Recurrent Depression. Currently on Effexor XR 75 mg orally once every day. 12. DVT prophylaxis. Bilateral knee-high THA hose. 13. GI prophylaxis. Protonix 40 mg IV push every 24 hours. 14. Hypertension and hypertensive cardiovascular disease stable. Patient is off blood pressure medications. 15. Hepatocellular disease. Ultrasound of the abdomen as above. Hepatitis panel neg 16. Debility with physical deconitioning, start PT OT. Consult with Dr. Mary Kay montemayor. Patient has been accepted at [facility] inpatient rehab. 18. Moderate severe protein malnutrition, protein supplementation, status post albumin. Continue protein supplementation. Code status: full code. Discharge plan: [facility] inpatient rehab on Wednesday Impression and plan of care have been directed as dictated by the signing physician. Verito Veloz nurse practitioner acting as scribe for signing physician.
[2019-05-11 11:10] LABS: INR 1.3 (<1.2); Prothrombin Time 13.1 sec (9.0-12.0)
--- NOTE | 2019-05-11 11:13 | P.PN ---
Subjective Progress Note Date: 05/10/19 This is a 68-year-old female patient Dr Gaffney with a previous medical history significant for new diagnosed angioimmunoblastic T-cell lymphoma which was diagnosed 04/25/2019, along with tumor lysis syndrome, hypertension and hypertensive cardiovascular disease, hyperlipidemia, new diagnosis of diabetes mellitus type 2, history of breast cancer status post right lumpectomy with radiation therapy, diverticulosis, hypothyroidism, was started on chemotherapy Cytoxan, etoposide and prednisone. She was discharged to home 04/30/2019, with a total bili of 4.1 comes in to the emergency room with significant jaundice of 2 days' duration, increasing weakness, and severe anemia. Diminished appetite, increasing abdominal distention, and increasing dependent edema legs patient denies any palpitations or chest pain or pleurisy, no melena and hematochezia Emergency room, she has a WBC count of 0.2, hemoglobin 4.7, platelet count of 22 INR of 1.2, creatinine 0.5, total bilirubin of 6.5 from a previous number of 4.12 days ago.. Patient admitted to the ICU secondary to severe anemia and jau ndice, this could be related to out to immune hemolytic anemia, oncology is on consult, Dr. Patrick is on consult for pulmonary medicine 2 units of packed red blood cells irradiated blood is currently being infused, possibility of right lower lobe pneumonia and parapneumonic effusion, started on IV antibiotic 05/05: Patient is still in ICU, feels more short of breath, hemoglobin currently is at 6.2, platelet count of 14, 7.1, patient has no shortness of breath or palpitations, still has diminished appetite, vital signs are stable in ICU, ultrasound shows moderate ascites, has dependent edema with anasarca will going to transfuse 1 unit of packed red blood cells irradiated blood, along with i ncrease in the furosemide to 20 mg every 12 hours. Caution for hypotension, as her protein stores are low, with ongoing sepsiswill going to transfuse 1 unit of packed red blood cells irradiated blood, along with decrease in the torsemide to 20 mg every 12 h we will request dr lord to see her for physcial deconditioning , eval for IP rehab, will request PT OT eval 05/06: Patient remains in ICU, hemoglobin of 6.2, more edema noted today, more abdominal distention today, however she still comfortable with her abdomen, platelet count is still low at 11, no plan for rbc transfusion today per onc ology, we'll going to discontinue amlodipine and lisinopril to allow more diuretic use, increase furosemide to 40 mg every 12 hours, continued Aldactone 25, she remains on Prandin, and dexamethasone, blood sugars are between 182-212, creatinine 0.56. Patient does not have any chest pain, no palpitations, no insomnia, she is on supplement 3 times a day at 60 g of protein per day along with her meals, albumin is low at 2.5, blood pressure 110-120 systolic 05/07, patient's demise in ICU, hemoglobin 6.0, still edematous, legs and arms bilaterally, anasarca still, no shortness of breath no palpitations, blood pressure is stable for increasing doses of Lasix adjusted to 40 every 8 hours,, has been off Lotrel patient would have an Conrado wrap today, and 1 unit of packed red blood cells today per oncology, no diarrhea, blood sugars ranging between 179-228, no change in Prandin, bilirubin now lower at 3.3, 05/08 patient evaluated bedside had a hemoglobin of 5.6 status post 2 units of packed red blood cells irradiated Repeat hemoglobin pending. Blood sugar under control patient has completed Decadron and 16 doses last night. Total bilirubin has improved to 2.6. Vitals assessed suggested temp of 97.9 pulse 15 blood pressure 122/71 saturating well on room air. Patient appears to be jorge matous in the lower extremities is otherwise doing well describes increased lethargy and is due for her second cycle on May 16. Started on Lasix 40 every 8 hours. Chest x-ray did show some concern for right lower lobe infiltrate versus atelectasis. Empiric antibiotic in the form of vancomycin and cefepime started blood culture so far negative patient evaluated bedside hemoglobin stable at 7.4 patient has a leukocytosis of 20.6. Continue on Lasix 40 IV every 8 with Aldactone 25 mg by mouth daily. Patient feels weak denies any shortness of breath or abdominal. Patient has bilateral lower extremity edema wrapped in Conrado wraps improved. Abdomen appears distended but patient denies any constipation, feeling of fullness. Patient received 1 dose of albumin for a low albumin today 05/10/2019 patient evaluated bedside. Vitals evaluated suggested temp 97.8 pulse 104 respiratory rate 11 blood pressure 1:30/60 saturating at room air 94%. Patient has a leukocytosis and with a WBC of 27 secondary to steroids hemoglobin dropped to 6.9 today would need 1 pack PRBC. Platelets 64 creatinine stable at 0.7 . Blood sugar 126 this morning total bilirubin stable at 2.8 AST ELT phyllis vated AST at 39 ALT 153 normal alkaline phosphatase. Continue Lasix 840 mg IV every 8 Review of Systems Constitutional: Denies chills, Denies fever, endorses lethargic Eyes: denies decreased vision, denies diplopia, denies discharge, denies pain Ears: deny: decreased hearing Ears, nose, mouth and throat: Denies dental pain, Denies headache, Denies nasal discharge, Denies nose pain Cardiovascular: Denies chest pain, Denies decreased exercise tolerance, Denies edema, Denies high blood pressure, Denies irregular heart beat, Denies palpitations, Denies paroxysmal nocturnal dyspnea, Denies rapid heart beat, Denies shortness of breath bilateral lower extremity edema positive Respiratory: Denies congestion, Denies cough, Denies cough with sputum, Denies dyspnea, Denies home oxygen, Denies wheezing Gastrointestinal: Denies abdominal pain, Denies change in bowel habits, Denies coffee ground emesis, Denies early satiety, Denies excessive gas, Denies heartburn, Denies hematemesis, Denies hematochezia, Denies loss of appetite, Denies nausea, Denies vomiting abdomen bloated Genitourinary: Denies dysuria, Denies flank pain, Denies kidney stones, Denies menorrhagia, Denies urgency, Denies urinary frequency Musculoskeletal: Denies gait dysfunction, Denies limitation of motion, Denies morning stiffness, Denies muscle cramps Integumentary: Denies rash, Denies wounds, Denies brittle nails, Denies change in hair/nails, Denies darkening of skin Neurological: Denies balance difficulties, Denies change in speech, Denies double vision, Denies gait dysfunction, Denies loss of vision, Denies motor disturbance, Denies numbness, Denies paralysis, Denies paresthesias, Denies seizures Psychiatric: Denies anxiety, Denies depression Endocrine: Denies excessive sweating, Denies excessive thirst, Denies high blood sugars, Denies palpitations Hematologic/Lymphatic: Denies easy bruising, Denies lymphadenopathy Objective - Vital Signs Vital signs: Vital Signs Temp 97.8 F 05/10/19 08:00 Pulse 104 H 05/10/19 09:00 Resp 11 L 05/10/19 09:00 BP 130/60 05/10/19 09:00 Pulse Ox 94 L 05/10/19 09:00 Intake & Output 05/09/19 05/10/19 05/10/19 18:59 06:59 18:59 Intake Total 550 400 175 Output Total 2775 1700 400 Balance -2225 -1300 -225 Weight 105.4 kg Intake: IV 550 400 175 Albumin Human 25% 50 ml 50 In Empty Bag 1 bag @ 50 mls/hr IVPB ONCE ONE Rx#: [id number] Cefepime 2 gm In Sodium 200 100 100 Chloride 0.9% 100 ml @ 200 mls/hr IVPB Q8HR [facility] Rx#:[id number] Sodium Chloride 0.9% 1, 300 300 75 000 ml @ 25 mls/hr IV . Q24H [facility] Rx#:[id number] Output: Urine 2775 1700 400 Other: Voiding Method Bedside Commode Bedside Commode # Bowel Movements 1 - Exam - Exam - Constitutional General appearance: cooperative, no acute distress, obese - EENT Eyes: Icteric sclerae, PERRLA, normal appearance ENT: hearing grossly normal - Neck Neck: no lymphadenopathy, normal ROM, no other, no rigidity, no stridor, no thyromegaly - Respiratory Respiratory: bilateral: Decreased air entry bilaterally - Cardiovascular Rhythm: regular Heart sounds: normal: S1, S2 Abnormal Heart Sounds: no systolic murmur, no diastolic murmur, no rub General gastrointestinal: normal bowel sounds, soft, appears bloated - Integumentary Integumentary: no rash - Neurologic Neurologic: CNII-XII intact - Musculoskeletal Musculoskeletal: gait not assessed strength equal bilaterally - Psychiatric Psychiatric: A&O x's 3, appropriate affect - Labs CBC & Chem 7: 05/10/19 05:25 05/10/19 05:25 Labs: Abnormal Lab Results - Last 24 Hours (Table) 05/07/19 05/09/19 05/09/19 Range/Units 10:58 12:09 16:53 WBC (3.8-10.6) k/uL RBC (3.80-5.40) m/uL Hgb (11.4-16.0) gm/dL Hct (34.0-46.0) % RDW (11.5-15.5) % Plt Count (150-450) k/uL Neutrophils # (Manual) (1.3-7.7) k/uL Monocytes # (Manual) (0-1.0) k/uL Myelocytes # (Manual) (0) k/uL Carbon Dioxide (22-30) mmol/L BUN (7-17) mg/dL Glucose (74-99) mg/dL POC Glucose (mg/dL) 146 H 149 H (75-99) mg/dL Calcium (8.4-10.2) mg/dL Total Bilirubin (0.2-1.3) mg/dL ALT (4-34) U/L Alkaline Phosphatase (38-126) U/L Total Protein (6.3-8.2) g/dL Albumin (3.5-5.0) g/dL Crossmatch See Detail Reference Lab Result See [facility] REF Reports A 05/09/19 05/10/19 05/10/19 Range/Units 21:00 05:25 05:25 WBC 27.0 H (3.8-10.6) k/uL RBC 2.36 L (3.80-5.40) m/uL Hgb 6.9 L* (11.4-16.0) gm/dL Hct 20.9 L (34.0-46.0) % RDW 16.5 H (11.5-15.5) % Plt Count 64 L (150-450) k/uL Neutrophils # (Manual) 22.10 H (1.3-7.7) k/uL Monocytes # (Manual) 3.51 H (0-1.0) k/uL Myelocytes # (Manual) 0.27 H (0) k/uL Carbon Dioxide 31 H (22-30) mmol/L BUN 28 H (7-17) mg/dL Glucose 126 H (74-99) mg/dL POC Glucose (mg/dL) 155 H (75-99) mg/dL Calcium 7.8 L (8.4-10.2) mg/dL Total Bilirubin 2.8 H (0.2-1.3) mg/dL ALT 39 H (4-34) U/L Alkaline Phosphatase 153 H (38-126) U/L Total Protein 4.7 L (6.3-8.2) g/dL Albumin 2.6 L (3.5-5.0) g/dL Crossmatch Reference Lab Result 05/10/19 Range/Units 06:48 WBC (3.8-10.6) k/uL RBC (3.80-5.40) m/uL Hgb (11.4-16.0) gm/dL Hct (34.0-46.0) % RDW (11.5-15.5) % Plt Count (150-450) k/uL Neutrophils # (Manual) (1.3-7.7) k/uL Monocytes # (Manual) (0-1.0) k/uL Myelocytes # (Manual) (0) k/uL Carbon Dioxide (22-30) mmol/L BUN (7-17) mg/dL Glucose (74-99) mg/dL POC Glucose (mg/dL) 137 H (75-99) mg/dL Calcium (8.4-10.2) mg/dL Total Bilirubin (0.2-1.3) mg/dL ALT (4-34) U/L Alkaline Phosphatase (38-126) U/L Total Protein (6.3-8.2) g/dL Albumin (3.5-5.0) g/dL Crossmatch Reference Lab Result Microbiology - Last 24 Hours (Table) 05/03/19 19:08 Blood Culture - Final Blood No Growth after 144 hours 05/03/19 19:08 Blood Culture - Final Blood No Growth after 144 hours Assessment and Plan Plan: 1. Severe pancytopenia, recent chemotherapy for T-cell lymphoma with hemolytic anemia, severe jaundice, status post 4 units packed red blood cell, last on 05/08 irradiated, ICU management, oncology is following, pulmonary following 2 Angioimmunoblastic T-cell lymphoma T-cell lymphoma CD30 (final pathologic report with [facility]) due to her malignancy. Oncology consult on chemotherapy and plan for bone marrow transplant in future, chemotherapy initiated with e toposide, doxorubicin, vincristine and cyclophosphamide pathology suggestive angioimmunoblastic T-cell lymphoma Completed dexamethasone 10 mg every 6 hours on we'll restart on 05/12 3. Severe jaundice, unconjugated bilirubin fractionation, suspect hemolytic anemia might need reconsult GI at this time, if worse, hepatitis viral screening negative oncology has been consulted avoid transfusion with incompatible packed red blood cells, IV hydration dexamethasone completed 4. Anasarca, with abdominal distention, moderate ascites, worsening davin to edema, increase IV Lasix 40mg every 8 hours, there might be some for titration the future, , start protein supplementation with diet, abdominal ultrasounaluate for ascites shows large pocket left lower quadrant, area, not amenable to abdo tamara paracentesis, as platelet count is too low 5 Gram-negative pneumonia possibility, patient is on cefepime, with discontinue vancomycin today as of MRSA noted., Dr. Byrd pulmonary medicine 6. Tumor lysis syndrome hx. Oncology is following. Patient is status post Elite[employer]. 7. Diabetes mellitus type 2, uncontrolled with hyperglycemia secondary to steroids. Continue NovoLog scale and NPH 5 twice a day 8. Hyperlipidemia. Discontinue Crestor for now. Secondary to severe jaundice 9. Hypothyroidism. Continue Synthroid increased to 75 g orally once every day. 10. Diverticulosis. Colonoscopy is up-to-date. 11. Recurrent Depression. Currently on Effexor XR 75 mg orally once every day. 12. DVT prophylaxis. Bilateral knee-high THA hose. 13. GI prophylaxis. Protonix 40 mg IV push every 24 hours. 5 Hypertension and hypertensive cardiovascular disease stable , discontinue amlodipine 5 and lisinopril 40 mg to allow maximizing diuretic use. Lisinopril 40 mg every 12 hours continue Aldactone 25 16. Hepatocellular disease. Ultrasound of the abdomen as above. . Hepatitis panel neg 17. debility with physical deconitioning, start PT OT, consult DR lord 18. Moderate severe protein malnutrition, protein supplementation, status post 12.5 g of 25% of albumin today Code status: full code.
--- NOTE | 2019-05-11 12:19 | P.PN ---
Subjective Progress Note Date: 05/11/19 Principal diagnosis: Hemolysis, severe pancytopenia secondary to treatment and disease (T-cell immunoblastic lymphoma) Patient is a 68 year old female that is currently in the ICU. She denies any changes in cognition, shortness of breath or chest pain. Having loose stool, but no diarrhea. Denies dysuria, hematuria. Lower extremity edema has decreased. Denies change in appetite. Objective - Vital Signs Vital signs: Vital Signs Temp 98.4 F 05/11/19 08:00 Pulse 88 05/11/19 08:00 Resp 13 05/11/19 08:00 BP 116/62 05/11/19 08:00 Pulse Ox 94 L 05/11/19 08:00 Intake & Output 05/10/19 05/11/19 05/11/19 18:59 06:59 18:59 Intake Total 585 1360 100 Output Total 1000 2300 2000 Balance -415 -455 -1906 Weight 103.7 kg Intake: IV 275 400 100 Cefepime 2 gm In Sodium 100 100 Chloride 0.9% 100 ml @ 200 mls/hr IVPB Q8HR [facility] Rx#:[id number] Sodium Chloride 0.9% 1, 175 300 100 000 ml @ 25 mls/hr IV . Q24H [facility] Rx#:[id number] Oral 960 Blood Product 310 Rc Irr As1 Unit 310 [id number] Output: Urine 1000 1400 2000 Urine/Stool Mix 900 Other: Voiding Method Bedside Commode Bedside Commode Bedside Commode # Voids 2 # Bowel Movements 2 3 - Constitutional General appearance: Present: cooperative, no acute distress - EENT Eyes: Present: anicteric sclerae, EOMI, PERRLA, normal appearance ENT: Present: hearing grossly normal, normal oropharynx Ears: bilateral: normal - Neck Neck: Present: lymphadenopathy, normal ROM Thyroid: bilateral: normal size - Respiratory Respiratory: bilateral: CTA - Cardiovascular Rhythm: regular Heart sounds: normal: S1, S2 Abnormal Heart Sounds: Absent: systolic murmur, diastolic murmur, rub, S3 G allop, S4 Gallop, click, other - Peripheral edema foot Peripheral Edema: bilateral: 1+ - Gastrointestinal General gastrointestinal: Present: distended, normal bowel sounds, soft - Integumentary Integumentary: Present: normal, normal turgor - Neurologic Neurologic: Present: CNII-XII intact - Musculoskeletal Musculoskeletal: Present: strength equal bilaterally - Psychiatric Psychiatric: Present: A&O x's 3, appropriate affect, intact judgment & insight - Labs CBC & Chem 7: 05/11/19 05:10 05/11/19 05:10 Labs: Abnormal Lab Results - Last 24 Hours (Table) 05/07/19 05/10/19 05/10/19 Range/Units 10:58 11:48 16:47 WBC (3.8-10.6) k/uL RBC (3.80-5.40) m/uL Hgb (11.4-16.0) gm/dL Hct (34.0-46.0) % RDW (11.5-15.5) % Plt Count (150-450) k/uL Neutrophils # (Manual) (1.3-7.7) k/uL Metamyelocytes # (Man) (0) k/uL Myelocytes # (Manual) (0) k/uL PT (9.0-12.0) sec INR (<1.2) Carbon Dioxide (22-30) mmol/L BUN (7-17) mg/dL Glucose (74-99) mg/dL POC Glucose (mg/dL) 150 H 170 H (75-99) mg/dL Calcium (8.4-10.2) mg/dL Total Bilirubin (0.2-1.3) mg/dL AST (14-36) U/L ALT (4-34) U/L Alkaline Phosphatase (38-126) U/L Total Protein (6.3-8.2) g/dL Albumin (3.5-5.0) g/dL Crossmatch See Detail Reference Lab Result See [facility] REF Reports A 05/10/19 05/11/19 05/11/19 Range/Units 20:43 05:10 05:10 WBC 29.9 H (3.8-10.6) k/uL RBC 2.57 L (3.80-5.40) m/uL Hgb 7.4 L (11.4-16.0) gm/dL Hct 22.3 L (34.0-46.0) % RDW 17.8 H (11.5-15.5) % Plt Count 70 L (150-450) k/uL Neutrophils # (Manual) 26.30 H (1.3-7.7) k/uL Metamyelocytes # (Man) 2.39 H (0) k/uL Myelocytes # (Manual) 0.60 H (0) k/uL PT (9.0-12.0) sec INR (<1.2) Carbon Dioxide 32 H (22-30) mmol/L BUN 25 H (7-17) mg/dL Glucose 116 H (74-99) mg/dL POC Glucose (mg/dL) 214 H (75-99) mg/dL Calcium 7.8 L (8.4-10.2) mg/dL Total Bilirubin 3.1 H (0.2-1.3) mg/dL AST 37 H (14-36) U/L ALT 37 H (4-34) U/L Alkaline Phosphatase 179 H (38-126) U/L Total Protein 4.7 L (6.3-8.2) g/dL Albumin 2.5 L (3.5-5.0) g/dL Crossmatch Reference Lab Result 05/11/19 05/11/19 Range/Units 06:47 10:45 WBC (3.8-10.6) k/uL RBC (3.80-5.40) m/uL Hgb (11.4-16.0) gm/dL Hct (34.0-46.0) % RDW (11.5-15.5) % Plt Count (150-450) k/uL Neutrophils # (Manual) (1.3-7.7) k/uL Metamyelocytes # (Man) (0) k/uL Myelocytes # (Manual) (0) k/uL PT 13.1 H (9.0-12.0) sec INR 1.3 H (<1.2) Carbon Dioxide (22-30) mmol/L BUN (7-17) mg/dL Glucose (74-99) mg/dL POC Glucose (mg/dL) 132 H (75-99) mg/dL Calcium (8.4-10.2) mg/dL Total Bilirubin (0.2-1.3) mg/dL AST (14-36) U/L ALT (4-34) U/L Alkaline Phosphatase (38-126) U/L Total Protein (6.3-8.2) g/dL Albumin (3.5-5.0) g/dL Crossmatch Reference Lab Result Assessment and Plan (1) Hemolytic anemia Narrative/Plan: Secondary to lymphoma. Stable Hgb after starting Pulse dose dex, this will be continued 4 days on, 4 days off. Hgb 7.4 today, Transfuse to keep Hgb above 7. Current Visit: Yes Status: Acute Priority: High Code(s): D58.9 - HEREDITARY HEMOLYTIC ANEMIA, UNSPECIFIED SNOMED Code(s): 20029290 (2) Angioimmunoblastic T-cell lymphoma Narrative/Plan: S/P post 1st cycle of EPOCH, GCSF on 05/01. Pt due to see Dr. Gonzalez in office, appt has been changed. Next cycle due next week. Plans will be adjusted accordingly based on pt recovery Current Visit: Yes Status: Acute Priority: High Code(s): C86.5 - ANGIOIMMUNOBLASTIC T-CELL LYMPHOMA SNOMED Code(s): 793345792 (3) Antineoplastic chemotherapy induced pancytopenia Narrative/Plan: Expected. WBC recovered-in part GCSF and in part steroids. Platelets 70K today Hgb 7.4 today No transfusions today CBC daily Current Visit: Yes Status: Acute Priority: High Code(s): D61.810 - ANTINEOPLASTIC CHEMOTHERAPY INDUCED PANCYTOPENIA; T45.1X5A - ADVERSE EFFECT OF ANTINEOPLASTIC AND IMMUNOSUP DRUGS, INIT SNOMED Code(s): 022111664450123 (4) Jaundice Narrative/Plan: Secondary to hemolysis and hypotension. Bilirubin raised slightly, possibly some slight hemolysis, pulse dose decadron to resume tomarrow. Labs daily, gentle hydration Current Visit: Yes Status: Resolved Priority: High Code(s): R17 - UNSPECIFIED JAUNDICE SNOMED Code(s): 33356186 (5) Generalized weakness Current Visit: Yes Status: Acute Priority: High Code(s): R53.1 - WEAKNESS SNOMED Code(s): 43725875 (6) Ascites Narrative/Plan: Dr. Beltran discussed with Attending. Multifactorial-lymphoma, treatment of lymphoma. Pt has received albumin, diruetics and she is being treated for lymphoma. Paracentesis planned at this time, platlets are recovered, white count is up. Current Visit: Yes Status: Acute Priority: Medium Code(s): R18.8 - OTHER ASCITES SNOMED Code(s): 154710664
[2019-05-11 13:07] LABS: Glucose,Whole Blood 130 mg/dL (75-99)
--- NOTE | 2019-05-11 13:35 | US ---
Therapeutic and diagnostic paracentesis. DATE OF EXAM: 05/11/2019 CLINICAL HISTORY: Ascites The procedure was discussed with the patient. The risks, complications, benefits, and alternatives we re discussed and any questions were answered. Informed consent was obtained. The patient was placed s upine on the ultrasound table and prepped and draped in the usual sterile fashion. All elements of maximal barrier technique were utilized. Under ultrasound guidance, access into the right lower quadrant was obtained, via the paracentesis catheter system and direct ultrasound guidanc e. Approximately 2.3 liters of straw-colored fluid was removed. The patient was stable throughout the pr ocedure and remained stable upon discharge from Department of Radiology. Sample sent to pathology for analysis. IMPRESSION: Successful paracentesis under ultrasound guidance.
[2019-05-11 15:01] LABS: Appearance,BF Hazy; Color,BF Yellow; Nucleated Cells, Body Fluid 30 /uL; RBC, Body Fluid 675 /uL
[2019-05-11 15:08] LABS: Mononuclear WBC,Body Fluid 55 %; Polynuclear WBC,Body Fluid 45 %; Total Cells Counted,Body Fluid 100
[2019-05-11 15:21] VITALS: BMI 39.2
[2019-05-11 17:08] LABS: Glucose,Whole Blood 129 mg/dL (75-99)
[2019-05-11 18:07] LABS: LDH, Body Fluid Source Ascites
[2019-05-11 20:18] LABS: Glucose,Whole Blood 188 mg/dL (75-99)
[2019-05-12] MEDS: SODIUM CHLORIDE 0.9% 1,000 ML IV SCH (04:23)
[2019-05-12] MEDS: LEVOTHYROXINE 50 MCG TAB PO SCH (05:37)
[2019-05-12] MEDS: MAG HYDROX/AL HYDROX/SIMETH 30 ML, LIDOCAINE VISCOUS 30 ML, diphenhydrAMINE ELIXIR 75 M... PO SCH ×16 (05:37→19:55)
[2019-05-12 07:21] LABS: Albumin, Fluid Source Ascites
[2019-05-12 07:32] LABS: Glucose,Whole Blood 146 mg/dL (75-99)
[2019-05-12 07:44] LABS: ALT 35 U/L (4-34); AST 39 U/L (14-36); African American GFR (CKD) >90 (>60 ml/min/1.73 sqM); Albumin 2.5 g/dL (3.5-5.0); Alkaline Phosphatase 188 U/L (38-126); Anion Gap 5 mmol/L; Blood Urea Nitrogen 25 mg/dL (7-17); Calcium 7.8 mg/dL (8.4-10.2); Carbon Dioxide 34 mmol/L (22-30); Chloride 99 mmol/L (98-107); Glucose 132 mg/dL (74-99); Non-African American GFR(CKD) 90 (>60 ml/min/1.73 sqM); Potassium 3.9 mmol/L (3.5-5.1); Sodium 138 mmol/L (137-145); Total Bilirubin 3.2 mg/dL (0.2-1.3); Total Protein 4.5 g/dL (6.3-8.2)
[2019-05-12] MEDS: INSULIN ASPART (NovoLOG) 100 UNIT/ML VIAL SQ SCH ×3 (08:20→18:26)
[2019-05-12] MEDS: INSULIN NPH 300 UNIT/3 ML VIAL SQ SCH ×2 (08:21→18:06)
[2019-05-12] MEDS: FUROSEMIDE 10 MG/ML 4 ML VIAL IV SCH ×2 (08:22→15:38)
[2019-05-12] MEDS: DEXAMETHASONE 4 MG TAB PO SCH (08:22)
[2019-05-12] MEDS: PANTOPRAZOLE 40 MG TABLET PO SCH (08:23)
[2019-05-12] MEDS: CEFEPIME 2 GM in SODIUM CHLORIDE 0.9% 100 ML IVPB SCH ×2 (08:23→15:37)
[2019-05-12] MEDS: metFORMIN 500 MG TAB PO SCH ×2 (08:23→18:05)
[2019-05-12] MEDS: VENLAFAXINE HCL 75 MG TAB PO SCH (08:23)
[2019-05-12] MEDS: SPIRONOLACTONE 25 MG TAB PO SCH (08:23)
[2019-05-12 10:18] LABS: Anisocytosis Slight; HCT 20.1 % (34.0-46.0); MCH 29.7 pg (25.0-35.0); MCHC 33.2 g/dL (31.0-37.0); MCV 89.5 fL (80.0-100.0); Mean Platelet Volume 11.5; Platelet Count 65 k/uL (150-450); RBC 2.25 m/uL (3.80-5.40); RDW 18.6 % (11.5-15.5)
[2019-05-12 10:25] LABS: HGB 6.7 gm/dL (11.4-16.0)
[2019-05-12 11:25] LABS: Glucose,Whole Blood 245 mg/dL (75-99)
[2019-05-12 11:59] LABS: Band Neutrophils % 6 %; Lymphocytes # (M) 0.23 k/uL (1.0-4.8); Metamyelocytes # (M) 0.46 k/uL (0); Metamyelocytes % 2 %; Myelocytes # (M) 0.92 k/uL (0); Myelocytes % 4 %; Neutrophils % (M) 78 %; Nucleated Red Blood Cells 0 /100 WBC (0-0); Total Cells Counted 200
--- NOTE | 2019-05-12 13:39 | P.PN ---
Subjective Progress Note Date: 05/12/19 Principal diagnosis: Chemotherapy-induced pancytopenia and acute hemolytic anemia This is a 68-year-old female recently diagnosed with angioimmunoblastic T-cell lymphoma presented mostly with generalized lymphadenopathy and bone marrow involvement with one episode of tumor lysis syndrome. Her diagnosis was made by biopsy of a right sided supraclavicular lymph node. Patient was recently in the hospital, and she was treated for tumor lysis syndrome and pancytopenia. She re ceived aggressive course of chemotherapy during her hospital stay, and she was discharged home on 04/30/2019. Patient presented to the ER yesterday, 3 days after discharge from the hospital mostly with complaints of weakness. She was also noting yellow discoloration. She had no nausea or vomiting, no abdominal pain, she had no cough no wheezing no fever no chills no hemoptysis, she was just feeling generally weak. Workup in the ER showed a WBC count of 0.4, hemoglobin 4.7, and her hemoglobin was 7.7 on 04/30. She was also noted to have low platelets at 22,000. Lactic acid was noted to be 2.3, total bilirubin was noted to be up to 6.5 from 4.1 few days ago, alkaline phosphatase of 58, and LDH of 584 Calcium was 7.5. Reticulocyte count of 0.2. Chest x-ray showed evidence of right sided pleural effusion, and right lower lobe atelectasis and/or consolidation. Patient was admitted to the intensive care unit, started empirically on vancomycin and cefepime. Cultures are all pending. Fluids were given. And blood transfusion was ordered however it seems to be difficult to find compatible blood for this patient, and the process of blood transfusion is pending. Considering the patient was admitted to the ICU, I was asked to see her on consultation Reevaluated today on 05/05/2019, patient remains in the intensive care units. Hemodynamically stable, on room air, denies any shortness of breath, no cough no wheezing and no chest pain. Patient is sitting at a bedside chair, seems to be quite comfortable. She received so far a total of 5 units of packed RBCs for her profound anemia which was felt to be hemolytic in nature. Hemoglobin today is 6.2. Platelets remained low at 14,000. WBC count is 0.1. Basic metabolic profile is normal. Chest x-ray showed slight improvement in her right pleural effusion and right lower lobe atelectasis/infiltrate. Ultrasound of the abdomen showed moderate ascites. Patient remains on diuretics, and the dose was increased to Lasix 20 mg every 12 hours. Blood cultures remain negative so far from admission. Reevaluated today on 05/06/2019, patient remains in the ICU, remains on room air, hemoglobin is 6.2 today, however the patient is relatively asymptomatic. WBC count remains low, platelets remained low, patient isn't responding well to diuretics, remains on broad-spectrum antibiotics. No major exchange teller the last 24 hours. Patient did receive a total of 5 units of packed RBCs since admission, and her hemoglobin today is 6.2 platelets are 11,000. Basic metabolic profile and renal profile remained relatively normal. Reevaluated today on 05/07/2019, remains in the ICU, comfortable, on room air, in no distress, hemoglobin today is 6.0, platelets remained low, however WBC count is up to 1.6. Patient remains on diuretics, she has good urine output, and her overall anasarca seems to be improving. Remains on broad-spectrum antibiotics, cultures remain negative. Patient is being followed closely by hematology/oncology, and may or may not transfuse the patient with a unit of packed RBCs today this will be decided upon by hematology. So far the patient received a total of 5 units of packed RBCs since admission On 05/08/2019 patient seen in follow-up in the intensive care unit, she is resting comfortably in bed, she is currently on room air with a pulse ox of 93- 98%, she is afebrile, hemodynamically stable, she is on IV maintenance fluids of 0.9 normal saline at a rate of 25 ML per hour. Today's chest x-ray has been reviewed showing right lower lobe infiltrate versus atelectasis and associated pleural effusion. She remains on IV Lasix at 40 mg every 8 hours, and empiric antibiotics in the form of vancomycin and cefepime. Blood cultures have shown no growth, no cough or congestion, no convincing chest pain, Flovent status is improving, patient is in -1330 mL fluid balance over the last 24 hours. Today's labs have been reviewed, showing white blood cell count of 10.8, hemoglobin of 5.6, platelet count of 35, sodium is 140, potassium is 4.5, chloride is 108, BUN of 33, creatinine 0.71. Still has edema involving upper and lower extremities, but no complaints of shortness of breath or palpitations. Patient is receiving 1 unit of packed red blood cells today for hemoglobin of 5.6, no signs of active bleeding right now. On 05/09/2019 patient seen in follow-up in the intensive care unit, she is resting in bed, she is eating some breakfast this morning, her appetite is improving, still has significant generalized weakness, but somewhat improved, he states she was up in the chair, tolerated activity fairly well, currently she denies any complaints, no shortness of breath, room air pulse ox is 95%, she is afebrile, hemodynamically patient is stable. Sinus mechanism on the monitor with a controlled rate, IV fluids infusing at a rate of 25 ML per hour, no signs of active bleeding, today's hemoglobin is 7.4, patient has received a total of 7 units of packed red blood cells on this admission. On today's labs White blood cell count has slightly increased to 21.6, with a count is still pending at this time, on yesterday's labs he was 47, electrolytes are within normal limits, B1 is 32 creatinine 0.7. Denies shortness of breath, patient has significant anasarca, and ascites. Today's labs have been reviewed and patient's albumin level is 2.6. Liver enzymes are trending up on today's labs, with AST up to 37, ALT is 38, and alkaline phosphatase of 145. Continues on IV Lasix, and she is in -4 L over the last 24 hours, remains on cefepime and vancomycin for antibiotic coverage, has not had fever or chills On over 05/11/2019 is seen in follow-up in the intensive care unit, she is resting comfortably in bed, she is no acute distress, room air pulse ox is 93%, she is afebrile, hemodynamically patient is stable, 0.9 normal saline infusing at a rate of 25 ML per hour, patient has received a total of 8 units of packed red blood cells this admission, her hemoglobin today 7.4, white count is 29.9, count has increased to 70, sodium is 137, potassium 3.7, chloride is 101, CO2 32, BUN is 25 creatinine 0.75. Appetite has slightly improved, nausea vomiting or diarrhea. Cultures show no growth. She denies shortness of breath, today's chest x-ray shows mild left lower lobe infiltrate, possibly related to atelectasis. He is on IV Lasix of 40 mg every 8 hours, and empiric antibiotic coverage in the form of cefepime and vancomycin, tingling negative fluid balance, she is in -3525 ML over last 24 hours, lower extremity edema is improving, fluid status is improving, still has significant generalized swelling and abdominal ascites. On 05/12/2019 patient seen in follow-up on medical surgical floor. She is sitting up in the chair, in no acute distress, denies shortness of breath, room air pulse ox is 97%, hemodynamically stable, no fever or chills, lung sounds are clear, generalized edema and abdominal ascites improving, patient remains on IV Lasix, she is diuresing, she is in -2330 mL fluid balance over the last 24 hours Objective - Vital Signs Vital signs: Vital Signs Temp 97.1 F L 05/12/19 11:52 Pulse 95 05/12/19 11:52 Resp 17 05/12/19 11:52 BP 113/66 05/12/19 11:52 Pulse Ox 97 05/12/19 11:52 Intake & Output 05/11/19 05/12/19 05/12/19 18:59 06:59 18:59 Intake Total 550 220 Output Total 3100 Balance -2550 220 Weight 103.7 kg Intake: IV 150 220 Cefepime 2 gm In Sodium 50 100 Chloride 0.9% 100 ml @ 200 mls/hr IVPB Q8HR [facility] Rx#:[id number] Sodium Chloride 0.9% 1, 100 120 000 ml @ 25 mls/hr IV . Q24H [facility] Rx#:[id number] Oral 400 Output: Urine 3100 Other: Voiding Method Bedside Commode Bedside Commode Toilet Bedside Commode # Voids 3 - Exam GENERAL EXAM: Alert, very pleasant, 68-year-old white female, on room air, sitting up in a recliner on room air, with a pulse ox of 97% comfortable in no apparent distress. HEAD: Normocephalic/atraumatic. EYES: Normal reaction of pupils, equal size. Conjunctiva pink, sclera white. NOSE: Clear with pink turbinates. THROAT: No erythema or exudates. NECK: No masses, no JVD, no thyroid enlargement, no adenopathy. CHEST: No chest wall deformity. Symmetrical expansion. LUNGS: Equal air entry with no crackles, wheeze, rhonchi or dullness. CVS: Regular rate and rhythm, normal S1 and S2, no gallops, no murmurs, no rubs ABDOMEN: Soft, patient has abdominal ascites. No hepatosplenomegaly, normal bowel sounds, no guarding or rigidity. EXTREMITIES: No clubbing, 1+ upper and lower extremity edema, no cyanosis, 2+ pulses and upper and lower extremities. MUSCULOSKELETAL: Muscle strength and tone normal. SPINE: No scoliosis or deformity SKIN: No rashes CENTRAL NERVOUS SYSTEM: Alert and oriented -3. No focal deficits, tone is normal in all 4 extremities. PSYCHIATRIC: Alert and oriented -3. Appropriate affect. Intact judgment and insight. - Labs CBC & Chem 7: 05/12/19 07:15 05/12/19 07:15 Labs: Abnormal Lab Results - Last 24 Hours (Table) 05/11/19 05/11/19 05/11/19 Range/Units 05:10 17:04 20:17 WBC (3.8-10.6) k/uL RBC (3.80-5.40) m/uL Hgb (11.4-16.0) gm/dL Hct (34.0-46.0) % RDW (11.5-15.5) % Plt Count (150-450) k/uL Neutrophils # (Manual) (1.3-7.7) k/uL Lymphocytes # (Manual) (1.0-4.8) k/uL Monocytes # (Manual) (0-1.0) k/uL Metamyelocytes # (Man) (0) k/uL Myelocytes # (Manual) (0) k/uL Carbon Dioxide (22-30) mmol/L BUN (7-17) mg/dL Glucose (74-99) mg/dL POC Glucose (mg/dL) 129 H 188 H (75-99) mg/dL Calcium (8.4-10.2) mg/dL Total Bilirubin (0.2-1.3) mg/dL AST (14-36) U/L ALT (4-34) U/L Alkaline Phosphatase (38-126) U/L Total Protein (6.3-8.2) g/dL Albumin (3.5-5.0) g/dL Procalcitonin 0.42 H (0.02-0.09) ng/mL 05/12/19 05/12/19 05/12/19 Range/Units 07:15 07:15 07:31 WBC 23.0 H (3.8-10.6) k/uL RBC 2.25 L (3.80-5.40) m/uL Hgb 6.7 L* (11.4-16.0) gm/dL Hct 20.1 L (34.0-46.0) % RDW 18.6 H (11.5-15.5) % Plt Count 65 L (150-450) k/uL Neutrophils # (Manual) 19.30 H (1.3-7.7) k/uL Lymphocytes # (Manual) 0.23 L (1.0-4.8) k/uL Monocytes # (Manual) 2.30 H (0-1.0) k/uL Metamyelocytes # (Man) 0.46 H (0) k/uL Myelocytes # (Manual) 0.92 H (0) k/uL Carbon Dioxide 34 H (22-30) mmol/L BUN 25 H (7-17) mg/dL Glucose 132 H (74-99) mg/dL POC Glucose (mg/dL) 146 H (75-99) mg/dL Calcium 7.8 L (8.4-10.2) mg/dL Total Bilirubin 3.2 H (0.2-1.3) mg/dL AST 39 H (14-36) U/L ALT 35 H (4-34) U/L Alkaline Phosphatase 188 H (38-126) U/L Total Protein 4.5 L (6.3-8.2) g/dL Albumin 2.5 L (3.5-5.0) g/dL Procalcitonin (0.02-0.09) ng/mL 05/12/19 Range/Units 11:24 WBC (3.8-10.6) k/uL RBC (3.80-5.40) m/uL Hgb (11.4-16.0) gm/dL Hct (34.0-46.0) % RDW (11.5-15.5) % Plt Count (150-450) k/uL Neutrophils # (Manual) (1.3-7.7) k/uL Lymphocytes # (Manual) (1.0-4.8) k/uL Monocytes # (Manual) (0-1.0) k/uL Metamyelocytes # (Man) (0) k/uL Myelocytes # (Manual) (0) k/uL Carbon Dioxide (22-30) mmol/L BUN (7-17) mg/dL Glucose (74-99) mg/dL POC Glucose (mg/dL) 245 H (75-99) mg/dL Calcium (8.4-10.2) mg/dL Total Bilirubin (0.2-1.3) mg/dL AST (14-36) U/L ALT (4-34) U/L Alkaline Phosphatase (38-126) U/L Total Protein (6.3-8.2) g/dL Albumin (3.5-5.0) g/dL Procalcitonin (0.02-0.09) ng/mL Microbiology - Last 24 Hours (Table) 05/11/19 12:00 Gram Stain - Preliminary Paracentesis Fluid Body Fluid Culture - Preliminary 05/11/19 12:00 Anaerobic Culture - Preliminary Paracentesis Fluid Assessment and Plan Plan: Assessment: #1. Chemotherapy induced pancytopenia, improving #2. Recurrent anemia, acute hemolytic in nature, also associated with bone marrow suppression secondary to chemotherapy, status post transfusion with 7 units of packed red blood cells this admission #3. Neutropenic sepsis patient continues on empiric broad-spectrum antibiotics #4. Possible right lower lobe pneumonia with parapneumonic effusion, his chest x-ray shows stable findings of right lower lobe atelectasis/infiltrate with small parapneumonic effusion on the right #5. History of tumor lysis syndrome, noted on her last admission/resolved #6. History of breast cancer previous lumpectomy #7. Multiple comorbidities including hypertension, hyperlipidemia, hypothyro idism, and type 2 diabetes #8. Angioimmunoblastic T-cell lymphoma #9. Ascites Plan: Patient is doing well, no acute complaints, no shortness of breath, she is up in the chair, fluid Sstatus is improving, generalized edema is improving, continue IV Lasix, increase activity as tolerated, today's labs have been noted, no new chest x-ray today, patient is being considered for inpatient rehab at [facility] she does not qualify patient is being considered for discharge home. She is supposed to start her next chemo treatment next Wednesday, medical oncology is following I performed a history & physical examination of the patient and discussed their management with my nurse practitioner, Rosemary Junior. I reviewed the nurse practitioner's note and agree with the documented findings and plan of care. Lung sounds are positive for diminished lung neri. The findings and the impression was discussed with the patient. I attest to the documentation by the nurse practitioner. Time with Patient: Less than 30
--- NOTE | 2019-05-12 15:00 | P.PN ---
Subjective Progress Note Date: 05/12/19 This is a 68-year-old female patient Dr Gaffney with a previous medical history significant for new diagnosed angioimmunoblastic T-cell lymphoma which was diagnosed 04/25/2019, along with tumor lysis syndrome, hypertension and hypertensive cardiovascular disease, hyperlipidemia, new diagnosis of diabetes mellitus type 2, history of breast cancer status post right lumpectomy with radiation therapy, diverticulosis, hypothyroidism, was started on chemotherapy Cytoxan, etoposide and prednisone. She was discharged to home 04/30/2019, with a total bili of 4.1 comes in to the emergency room with significant jaundice of 2 days' duration, increasing weakness, and severe anemia. Diminished appetite, increasing abdominal distention, and increasing dependent edema legs patient denies any palpitations or chest pain or pleurisy, no melena and hematochezia Emergency room, she has a WBC count of 0.2, hemoglobin 4.7, platelet count of 22 INR of 1.2, creatinine 0.5, total bilirubin of 6.5 from a previous number of 4.12 days ago.. Patient admitted to the ICU secondary to severe anemia and jau ndice, this could be related to out to immune hemolytic anemia, oncology is on consult, Dr. Patrick is on consult for pulmonary medicine 2 units of packed red blood cells irradiated blood is currently being infused, possibility of right lower lobe pneumonia and parapneumonic effusion, started on IV antibiotic 05/05: Patient is still in ICU, feels more short of breath, hemoglobin currently is at 6.2, platelet count of 14, 7.1, patient has no shortness of breath or palpitations, still has diminished appetite, vital signs are stable in ICU, ultrasound shows moderate ascites, has dependent edema with anasarca will going to transfuse 1 unit of packed red blood cells irradiated blood, along with i ncrease in the furosemide to 20 mg every 12 hours. Caution for hypotension, as her protein stores are low, with ongoing sepsiswill going to transfuse 1 unit of packed red blood cells irradiated blood, along with decrease in the torsemide to 20 mg every 12 h we will request dr lord to see her for physcial deconditioning , eval for IP rehab, will request PT OT eval 05/06: Patient remains in ICU, hemoglobin of 6.2, more edema noted today, more abdominal distention today, however she still comfortable with her abdomen, platelet count is still low at 11, no plan for rbc transfusion today per onc ology, we'll going to discontinue amlodipine and lisinopril to allow more diuretic use, increase furosemide to 40 mg every 12 hours, continued Aldactone 25, she remains on Prandin, and dexamethasone, blood sugars are between 182-212, creatinine 0.56. Patient does not have any chest pain, no palpitations, no insomnia, she is on supplement 3 times a day at 60 g of protein per day along with her meals, albumin is low at 2.5, blood pressure 110-120 systolic 05/07, patient's demise in ICU, hemoglobin 6.0, still edematous, legs and arms bilaterally, anasarca still, no shortness of breath no palpitations, blood pressure is stable for increasing doses of Lasix adjusted to 40 every 8 hours,, has been off Lotrel patient would have an Conrado wrap today, and 1 unit of packed red blood cells today per oncology, no diarrhea, blood sugars ranging between 179-228, no change in Prandin, bilirubin now lower at 3.3, 05/08 patient evaluated bedside had a hemoglobin of 5.6 status post 2 units of packed red blood cells irradiated Repeat hemoglobin pending. Blood sugar under control patient has completed Decadron and 16 doses last night. Total bilirubin has improved to 2.6. Vitals assessed suggested temp of 97.9 pulse 15 blood pressure 122/71 saturating well on room air. Patient appears to be jorge matous in the lower extremities is otherwise doing well describes increased lethargy and is due for her second cycle on May 16. Started on Lasix 40 every 8 hours. Chest x-ray did show some concern for right lower lobe infiltrate versus atelectasis. Empiric antibiotic in the form of vancomycin and cefepime started blood culture so far negative patient evaluated bedside hemoglobin stable at 7.4 patient has a leukocytosis of 20.6. Continue on Lasix 40 IV every 8 with Aldactone 25 mg by mouth daily. Patient feels weak denies any shortness of breath or abdominal. Patient has bilateral lower extremity edema wrapped in Conrado wraps improved. Abdomen appears distended but patient denies any constipation, feeling of fullness. Patient received 1 dose of albumin for a low albumin today /2: Patient has improvement of the lower extremity edema from yesterday. She has been eating Magic cups. She continues to have abdominal loading for which a therapeutic paracentesis will be ordered. Pro-calcitonin ordered to rule out pneumonia. Blood sugars are in the 200s and NPH will be increased to 10 units twice daily. Patient remains in the intensive care unit but has been cleared by Dr. Hurley for transfer to the oncology unit. She has been afebrile, blood pressure 116/62, pulse ox 94% on room air. She denies shortness of breath. Hemoglobin stable at 7.4, WBC 29.9, platelet count 70. Liver enzymes remain elevated with AST 37, ALT 37, alkaline phosphatase 179. Anticipate possible discharge in the next 24-48 hours. 05/12: Yesterday, patient underwent paracentesis with interventional radiology with removal of 2.3 L of straw-colored fluid. Pathology report is pending. R BCs 675, nucleated cells 30, polynuclear 45, mononuclear 55, albumin less than 1, LDH 95. Repeat hemoglobin this morning is 6.7 and 1 unit of packed RBCs will be ordered for the patient. Platelet count is 65, WBC 23. CO2 35, BUN 25 and creatinine 0.7. Liver function tests remain elevated with total bilirubin of 3.2, AST 39, ALT 35, alkaline phosphatase 188. Case discussed with Dr. Beltran. He plans to start chemotherapy on Wednesday for which patient will be returning to the hospital. [facility] has not accepted the patient so her discharge plan is now home with VNA. We will plan to order repeat CBC on Wednesday. At this time, blood bank is unable to obtain blood for transfusion immediately, anticipate that transfusion will not occur until late tonight or tomorrow. Discharge will be planned for tomorrow. Review of Systems Constitutional: Denies chills, Denies fever, endorses lethargic Eyes: denies decreased vision, denies diplopia, denies discharge, denies pain Ears: deny: decreased hearing Ears, nose, mouth and throat: Denies dental pain, Denies headache, Denies nasal discharge, Denies nose pain Cardiovascular: Denies chest pain, Denies decreased exercise tolerance, Denies edema, Denies high blood pressure, Denies irregular heart beat, Denies palpitations, Denies paroxysmal nocturnal dyspnea, Denies rapid heart beat, Denies shortness of breath bilateral lower extremity edema positive-improving Respiratory: Denies congestion, Denies cough, Denies cough with sputum, Denies dyspnea, Denies home oxygen, Denies wheezing Gastrointestinal: Denies abdominal pain, Denies change in bowel habits, Denies coffee ground emesis, Denies early satiety, Denies excessive gas, Denies heartburn, Denies hematemesis, Denies hematochezia, Denies loss of appetite, Denies nausea, Denies vomiting Genitourinary: Denies dysuria, Denies flank pain, Denies kidney stones, Denies menorrhagia, Denies urgency, Denies urinary frequency Musculoskeletal: Denies gait dysfunction, Denies limitation of motion, Denies morning stiffness, Denies muscle cramps Integumentary: Denies rash, Denies wounds, Denies brittle nails, Denies change in hair/nails, Denies darkening of skin Neurological: Denies balance difficulties, Denies change in speech, Denies double vision, Denies gait dysfunction, Denies loss of vision, Denies motor disturbance, Denies numbness, Denies paralysis, Denies paresthesias, Denies seizures Psychiatric: Denies anxiety, Denies depression Endocrine: Denies excessive sweating, Denies excessive thirst, Denies high blood sugars, Denies palpitations Hematologic/Lymphatic: Denies easy bruising, Denies lymphadenopathy Objective - Vital Signs Vital signs: Vital Signs Temp 97.1 F L 05/12/19 11:52 Pulse 95 05/12/19 11:52 Resp 17 05/12/19 11:52 BP 113/66 05/12/19 11:52 Pulse Ox 97 05/12/19 11:52 Intake & Output 05/11/19 05/12/19 05/12/19 18:59 06:59 18:59 Intake Total 550 220 900 Output Total 3100 Balance -2550 220 900 Weight 103.7 kg Intake: IV 150 220 300 Cefepime 2 gm In Sodium 50 100 100 Chloride 0.9% 100 ml @ 200 mls/hr IVPB Q8HR ADITI Rx#:[id number] Sodium Chloride 0.9% 1, 100 120 200 000 ml @ 25 mls/hr IV . Q24H ADITI Rx#:[id number] Oral 400 600 Output: Urine 3100 Other: Voiding Method Bedside Commode Bedside Commode Toilet Bedside Commode # Voids 3 3 - Exam - Constitutional General appearance: cooperative, no acute distress, obese, family at bedside - EENT Eyes: Icteric sclerae, PERRLA, normal appearance ENT: hearing grossly normal - Neck Neck: no lymphadenopathy, normal ROM, no other, no rigidity, no stridor, no thyromegaly - Respiratory Respiratory: bilateral: Decreased air entry bilaterally - Cardiovascular Rhythm: regular Heart sounds: normal: S1, S2 Abnormal Heart Sounds: no systolic murmur, no diastolic murmur, no rub General gastrointestinal: normal bowel sounds, soft - Integumentary Integumentary: no rash - Neurologic Neurologic: CNII-XII intact - Musculoskeletal Musculoskeletal: gait not assessed strength equal bilaterally 1+ bilateral edema. - Psychiatric Psychiatric: A&O x's 3, appropriate affect - Labs CBC & Chem 7: 05/12/19 07:15 05/12/19 07:15 Labs: Abnormal Lab Results - Last 24 Hours (Table) 05/11/19 05/11/19 05/11/19 Range/Units 05:10 17:04 20:17 WBC (3.8-10.6) k/uL RBC (3.80-5.40) m/uL Hgb (11.4-16.0) gm/dL Hct (34.0-46.0) % RDW (11.5-15.5) % Plt Count (150-450) k/uL Neutrophils # (Manual) (1.3-7.7) k/uL Lymphocytes # (Manual) (1.0-4.8) k/uL Monocytes # (Manual) (0-1.0) k/uL Metamyelocytes # (Man) (0) k/uL Myelocytes # (Manual) (0) k/uL Carbon Dioxide (22-30) mmol/L BUN (7-17) mg/dL Glucose (74-99) mg/dL POC Glucose (mg/dL) 129 H 188 H (75-99) mg/dL Calcium (8.4-10.2) mg/dL Total Bilirubin (0.2-1.3) mg/dL AST (14-36) U/L ALT (4-34) U/L Alkaline Phosphatase (38-126) U/L Total Protein (6.3-8.2) g/dL Albumin (3.5-5.0) g/dL Procalcitonin 0.42 H (0.02-0.09) ng/mL Crossmatch 05/12/19 05/12/19 05/12/19 Range/Units 07:15 07:15 07:31 WBC 23.0 H (3.8-10.6) k/uL RBC 2.25 L (3.80-5.40) m/uL Hgb 6.7 L* (11.4-16.0) gm/dL Hct 20.1 L (34.0-46.0) % RDW 18.6 H (11.5-15.5) % Plt Count 65 L (150-450) k/uL Neutrophils # (Manual) 19.30 H (1.3-7.7) k/uL Lymphocytes # (Manual) 0.23 L (1.0-4.8) k/uL Monocytes # (Manual) 2.30 H (0-1.0) k/uL Metamyelocytes # (Man) 0.46 H (0) k/uL Myelocytes # (Manual) 0.92 H (0) k/uL Carbon Dioxide 34 H (22-30) mmol/L BUN 25 H (7-17) mg/dL Glucose 132 H (74-99) mg/dL POC Glucose (mg/dL) 146 H (75-99) mg/dL Calcium 7.8 L (8.4-10.2) mg/dL Total Bilirubin 3.2 H (0.2-1.3) mg/dL AST 39 H (14-36) U/L ALT 35 H (4-34) U/L Alkaline Phosphatase 188 H (38-126) U/L Total Protein 4.5 L (6.3-8.2) g/dL Albumin 2.5 L (3.5-5.0) g/dL Procalcitonin (0.02-0.09) ng/mL Crossmatch 05/12/19 05/12/19 Range/Units 11:24 12:00 WBC (3.8-10.6) k/uL RBC (3.80-5.40) m/uL Hgb (11.4-16.0) gm/dL Hct (34.0-46.0) % RDW (11.5-15.5) % Plt Count (150-450) k/uL Neutrophils # (Manual) (1.3-7.7) k/uL Lymphocytes # (Manual) (1.0-4.8) k/uL Monocytes # (Manual) (0-1.0) k/uL Metamyelocytes # (Man) (0) k/uL Myelocytes # (Manual) (0) k/uL Carbon Dioxide (22-30) mmol/L BUN (7-17) mg/dL Glucose (74-99) mg/dL POC Glucose (mg/dL) 245 H (75-99) mg/dL Calcium (8.4-10.2) mg/dL Total Bilirubin (0.2-1.3) mg/dL AST (14-36) U/L ALT (4-34) U/L Alkaline Phosphatase (38-126) U/L Total Protein (6.3-8.2) g/dL Albumin (3.5-5.0) g/dL Procalcitonin (0.02-0.09) ng/mL Crossmatch See Detail Microbiology - Last 24 Hours (Table) 05/11/19 12:00 Gram Stain - Preliminary Paracentesis Fluid Body Fluid Culture - Preliminary 05/11/19 12:00 Anaerobic Culture - Preliminary Paracentesis Fluid Assessment and Plan Plan: 1. Severe pancytopenia, recent chemotherapy for T-cell lymphoma with hemolytic anemia, severe jaundice, status post 8 units packed red blood cell. Oncology is following, pulmonary following. Transfer to oncology unit. One unit of packed RBCs to be transfused today for hemoglobin of 6.7. Recheck hemoglobin in the morning. 2. Angioimmunoblastic T-cell lymphoma T-cell lymphoma CD30 (final pathologic report with [facility]) due to her malignancy. Oncology consult on chemotherapy and plan for bone marrow transplant in future, chemotherapy initiated with etoposide, doxorubicin, vincristine and cyclophosphamide pathology suggestive angioimmunoblastic T-cell lymphoma Completed dexamethasone 10 mg every 6 hours on we'll restart on 05/12. Severe jaundice, unconjugated bilirubin fractionation, suspect hemolytic anemia. Oncology has been consulted avoid transfusion with incompatible packed red blood cells, IV hydration dexamethasone completed 4. Anasarca, with abdominal distention, moderate ascites, worsening edema, continue IV Lasix 40mg every 8 hours, continue protein supplementation with diet, paracentesis ordered for IR, Aldactone 25 mg daily. 5. Gram-negative pneumonia possibility, patient is on cefepime, off vancomycin, Dr. Byrd pulmonary medicine 6. Tumor lysis syndrome hx. Oncology is following. Patient is status post Elitek. 7. Diabetes mellitus type 2, uncontrolled with hyperglycemia secondary to steroids. Continue NovoLog scale and NPH increased to 10 twice a day 8. Hyperlipidemia. Discontinue Crestor for now. Secondary to severe jaundice 9. Hypothyroidism. Continue Synthroid increased to 75 g orally once every day. 10. Diverticulosis. Colonoscopy is up-to-date. 11. Recurrent Depression. Currently on Effexor XR 75 mg orally once every day. 12. DVT prophylaxis. Bilateral knee-high THA hose. 13. GI prophylaxis. Protonix 40 mg IV push every 24 hours. 14. Hypertension and hypertensive cardiovascular disease stable. Patient is off blood pressure medications. 15. Hepatocellular disease. Ultrasound of the abdomen as above. Hepatitis panel neg 16. Debility with physical deconitioning, start PT OT. Consult with Dr. Rutledge appreciated. Patient not accepted at [facility] inpatient rehab. 18. Moderate severe protein malnutrition, protein supplementation, status post albumin. Continue protein supplementation. Code status: full code. Discharge plan: Home with VNA tomorrow. Plan is for patient to return on Wednesday to start next round of chemotherapy. Impression and plan of care have been directed as dictated by the signing physician. Verito Veloz nurse practitioner acting as scribe for signing physician.
[2019-05-12 17:10] LABS: Glucose,Whole Blood 387 mg/dL (75-99)
[2019-05-12] MEDS ORDERED: INSULIN ASPART (NovoLOG) 100 UNIT/ML VIAL SQ ONE (18:21)
--- NOTE | 2019-05-12 18:30 | P.PN ---
Subjective Progress Note Date: 05/12/19 Principal diagnosis: Hemolysis, severe pancytopenia secondary to treatment and disease (T-cell immunoblastic lymphoma) In follow-up today patient looks well, she feels fairly decent, some generalized weakness, mild to moderate, no dizziness, mild shortness of breath with exertio n, no chest pains or palpitations, she is tolerating oral intake no nausea or vomiting, after the paracentesis her abdomen feels significantly less distended and more comfortable, she is wanting to go home. Objective - Vital Signs Vital signs: Vital Signs Temp 98.3 F 05/12/19 18:08 Pulse 98 05/12/19 18:08 Resp 16 05/12/19 18:08 BP 114/67 05/12/19 18:08 Pulse Ox 93 L 05/12/19 18:08 Intake & Output 05/11/19 05/12/19 05/12/19 18:59 06:59 18:59 Intake Total 550 220 900 Output Total 3100 Balance -2550 220 900 Weight 103.7 kg Intake: IV 150 220 300 Cefepime 2 gm In Sodium 50 100 100 Chloride 0.9% 100 ml @ 200 mls/hr IVPB Q8HR ADITI Rx#:[id number] Sodium Chloride 0.9% 1, 100 120 200 000 ml @ 25 mls/hr IV . Q24H ADITI Rx#:[id number] Oral 400 600 Blood Product 0 Rc Irr As1 Unit 0 [id number] Output: Urine 3100 Other: Voiding Method Bedside Commode Bedside Commode Toilet Bedside Commode # Voids 3 3 - Constitutional General appearance: Present: cooperative, no acute distress, obese - EENT Eyes: Present: anicteric sclerae, EOMI ENT: Present: hearing grossly normal - Neck Neck: Present: lymphadenopathy - Respiratory Respiratory: bilateral: CTA - Cardiovascular Rhythm: regular Heart sounds: normal: S1, S2 Abnormal Heart Sounds: Absent: systolic murmur, diastolic murmur, rub, S3 Gallop, S4 Gallop, click, other - Peripheral edema leg Peripheral Edema: bilateral: 1+ - Gastrointestinal General gastrointestinal: Present: distended (mild, less since para), normal bowel sounds, soft - Integumentary Integumentary: Present: normal turgor - Neurologic Neurologic: Present: CNII-XII intact - Musculoskeletal Musculoskeletal: Present: generalized weakness, strength equal bilaterally - Psychiatric Psychiatric: Present: A&O x's 3, appropriate affect, intact judgment & insight - Labs CBC & Chem 7: 05/12/19 07:15 05/12/19 07:15 Labs: Abnormal Lab Results - Last 24 Hours (Table) 05/07/19 05/11/19 05/12/19 Range/Units 10:58 20:17 07:15 WBC (3.8-10.6) k/uL RBC (3.80-5.40) m/uL Hgb (11.4-16.0) gm/dL Hct (34.0-46.0) % RDW (11.5-15.5) % Plt Count (150-450) k/uL Neutrophils # (Manual) (1.3-7.7) k/uL Lymphocytes # (Manual) (1.0-4.8) k/uL Monocytes # (Manual) (0-1.0) k/uL Metamyelocytes # (Man) (0) k/uL Myelocytes # (Manual) (0) k/uL Carbon Dioxide 34 H (22-30) mmol/L BUN 25 H (7-17) mg/dL Glucose 132 H (74-99) mg/dL POC Glucose (mg/dL) 188 H (75-99) mg/dL Calcium 7.8 L (8.4-10.2) mg/dL Total Bilirubin 3.2 H (0.2-1.3) mg/dL AST 39 H (14-36) U/L ALT 35 H (4-34) U/L Alkaline Phosphatase 188 H (38-126) U/L Total Protein 4.5 L (6.3-8.2) g/dL Albumin 2.5 L (3.5-5.0) g/dL Crossmatch See Detail 05/12/19 05/12/19 05/12/19 Range/Units 07:15 07:31 11:24 WBC 23.0 H (3.8-10.6) k/uL RBC 2.25 L (3.80-5.40) m/uL Hgb 6.7 L* (11.4-16.0) gm/dL Hct 20.1 L (34.0-46.0) % RDW 18.6 H (11.5-15.5) % Plt Count 65 L (150-450) k/uL Neutrophils # (Manual) 19.30 H (1.3-7.7) k/uL Lymphocytes # (Manual) 0.23 L (1.0-4.8) k/uL Monocytes # (Manual) 2.30 H (0-1.0) k/uL Metamyelocytes # (Man) 0.46 H (0) k/uL Myelocytes # (Manual) 0.92 H (0) k/uL Carbon Dioxide (22-30) mmol/L BUN (7-17) mg/dL Glucose (74-99) mg/dL POC Glucose (mg/dL) 146 H 245 H (75-99) mg/dL Calcium (8.4-10.2) mg/dL Total Bilirubin (0.2-1.3) mg/dL AST (14-36) U/L ALT (4-34) U/L Alkaline Phosphatase (38-126) U/L Total Protein (6.3-8.2) g/dL Albumin (3.5-5.0) g/dL Crossmatch 05/12/19 05/12/19 Range/Units 12:00 17:09 WBC (3.8-10.6) k/uL RBC (3.80-5.40) m/uL Hgb (11.4-16.0) gm/dL Hct (34.0-46.0) % RDW (11.5-15.5) % Plt Count (150-450) k/uL Neutrophils # (Manual) (1.3-7.7) k/uL Lymphocytes # (Manual) (1.0-4.8) k/uL Monocytes # (Manual) (0-1.0) k/uL Metamyelocytes # (Man) (0) k/uL Myelocytes # (Manual) (0) k/uL Carbon Dioxide (22-30) mmol/L BUN (7-17) mg/dL Glucose (74-99) mg/dL POC Glucose (mg/dL) 387 H (75-99) mg/dL Calcium (8.4-10.2) mg/dL Total Bilirubin (0.2-1.3) mg/dL AST (14-36) U/L ALT (4-34) U/L Alkaline Phosphatase (38-126) U/L Total Protein (6.3-8.2) g/dL Albumin (3.5-5.0) g/dL Crossmatch See Detail Microbiology - Last 24 Hours (Table) 05/11/19 12:00 Gram Stain - Preliminary Paracentesis Fluid Body Fluid Culture - Preliminary 05/11/19 12:00 Anaerobic Culture - Preliminary Paracentesis Fluid Assessment and Plan (1) Hemolytic anemia Narrative/Plan: Secondary to lymphoma. Stable Hgb after starting Pulse dose dex, this will be continued 4 days on, 4 days off. Rx was sent to pt pharm, has already picked up. Hgb 6.7 today, 1 unit Current Visit: Yes Status: Acute Priority: High Code(s): D58.9 - HEREDITARY HEMOLYTIC ANEMIA, UNSPECIFIED SNOMED Code(s): 07985729 (2) Angioimmunoblastic T-cell lymphoma Narrative/Plan: S/P post 1st cycle of EPOCH, GCSF on 05/01. Pt due to see Dr. Gonzalez in office, appt has been changed to Wednesday. Next cycle due next week. Plans will be adjusted accordingly based on pt recovery. Cont pulse dose dex for now Current Visit: Yes Status: Acute Priority: High Code(s): C86.5 - ANGIOIMMUNOBLASTIC T-CELL LYMPHOMA SNOMED Code(s): 327719506 (3) Antineoplastic chemotherapy induced pancytopenia Narrative/Plan: Expected. WBC recovered-in part GCSF and in part steroids. Platelets 65K today, stable Hgb 6.7 today, 1 unit Pathologist reviewed case with me, regarding patient's warm antibody hemolytic anemia. Patient currently is receiving least incompatible blood products but, risk of hemolysis will become increasing greater with each subsequent unit of blood. We may have to consider a new baseline hemoglobin for her. I will report these findings to Dr. Gonzalez. He will discuss that in further detail with her when he meets them on Wednesday. Current Visit: Yes Status: Acute Priority: High Code(s): D61.810 - ANTINEO PLASTIC CHEMOTHERAPY INDUCED PANCYTOPENIA; T45.1X5A - ADVERSE EFFECT OF ANTINEOPLASTIC AND IMMUNOSUP DRUGS, INIT SNOMED Code(s): 677758641421637 (4) Jaundice Current Visit: Yes Status: Resolved Priority: High Code(s): R17 - UNSPECIFIED JAUNDICE SNOMED Code(s): 97525999 (5) Generalized weakness Narrative/Plan: Due to severe anemia, prolonged bed rest/ICU stay. Anemia improved with transfusion. Pt to start working with PT/OT, consider home PT Current Visit: Yes Status: Acute Priority: High Code(s): R53.1 - WEAKNESS SNOMED Code(s): 33682082 (6) Ascites Narrative/Plan: Pt has received albumin, diruetics and she is being treated for lymphoma. 2.7 L Paracentesis performed, pt feels better, specimen sent for analysis and flow cytometry Current Visit: Yes Status: Acute Priority: Medium Code(s): R18.8 - OTHER ASCITES SNOMED Code(s): 478405100
[2019-05-12 20:22] LABS: Glucose,Whole Blood 363 mg/dL (75-99)
[2019-05-13] MEDS: CEFEPIME 2 GM in SODIUM CHLORIDE 0.9% 100 ML IVPB SCH ×2 (00:06→10:17)
[2019-05-13] MEDS: FUROSEMIDE 10 MG/ML 4 ML VIAL IV SCH ×2 (00:06→08:27)
[2019-05-13] MEDS: MAG HYDROX/AL HYDROX/SIMETH 30 ML, LIDOCAINE VISCOUS 30 ML, diphenhydrAMINE ELIXIR 75 M... PO SCH ×12 (00:11→12:15)
[2019-05-13 05:02] VITALS: BP 112/67; PULSE 87; RESP 16; TEMP 98.4
[2019-05-13] MEDS: SODIUM CHLORIDE 0.9% 1,000 ML IV SCH (05:45)
[2019-05-13] MEDS: LEVOTHYROXINE 50 MCG TAB PO SCH (06:10)
[2019-05-13 07:20] LABS: Glucose,Whole Blood 218 mg/dL (75-99)
[2019-05-13] MEDS: metFORMIN 500 MG TAB PO SCH (08:27)
[2019-05-13] MEDS: SPIRONOLACTONE 25 MG TAB PO SCH (08:27)
[2019-05-13] MEDS: VENLAFAXINE HCL 75 MG TAB PO SCH (08:27)
[2019-05-13] MEDS: DEXAMETHASONE 4 MG TAB PO SCH (08:27)
[2019-05-13] MEDS: PANTOPRAZOLE 40 MG TABLET PO SCH (08:27)
[2019-05-13] MEDS: INSULIN ASPART (NovoLOG) 100 UNIT/ML VIAL SQ SCH ×2 (08:28→12:21)
[2019-05-13] MEDS: INSULIN NPH 300 UNIT/3 ML VIAL SQ SCH (08:28)
[2019-05-13 09:44] LABS: Anisocytosis Slight; Basophils # (A) 0.2 k/uL (0-0.2); Basophils % (A) 1 %; Eosinophils % (A) 0 %; HCT 22.9 % (34.0-46.0); HGB 7.7 gm/dL (11.4-16.0); Lymphocytes # (A) 0.1 k/uL (1.0-4.8); Lymphocytes % (A) 0 %; MCH 30.3 pg (25.0-35.0); MCHC 33.7 g/dL (31.0-37.0); MCV 89.9 fL (80.0-100.0); Monocytes # (A) 0.9 k/uL (0-1.0); Monocytes % (A) 3 %; Neutrophils % (A) 96 %; RBC 2.55 m/uL (3.80-5.40); RDW 17.9 % (11.5-15.5); WBC 27.2 k/uL (3.8-10.6)
[2019-05-13 09:47] LABS: Platelet Count 66 k/uL (150-450)
[2019-05-13 11:51] LABS: Glucose,Whole Blood 279 mg/dL (75-99)
--- NOTE | 2019-05-13 15:09 | P.DS ---
Providers Date of admission: 05/03/19 17:36 Expected date of discharge: 05/13/19 Attending physician: Tish Adair Consults: 05/03/19 17:40 Consult Physician Urgent Consulting Provider: Rebeca Bullock Consult Reason/Comments: Anemia, leukopenia, leukemia Do you want consulting provider notified?: Already Contacted 05/03/19 17:41 Consult Physician Urgent Consulting Provider: Rohan Byrd Consult Reason/Comments: ICU care Do you want consulting provider notified?: Already Contacted 05/05/19 14:11 Consult Physician Routine Consulting Provider: Merrick Neil Consult Reason/Comments: IPR Do you want consulting provider notified?: Yes Primary care physician: Messi Gaffney [facility] Course: This is a 68-year-old female patient Dr Gaffney with a previous medical history significant for new diagnosed angioimmunoblastic T-cell lymphoma which was diagnosed 04/25/2019, along with tumor lysis syndrome, hypertension and hypertensive cardiovascular disease, hyperlipidemia, new diagnosis of diabetes mellitus type 2, history of breast cancer status post right lumpectomy with radiation therapy, diverticulosis, hypothyroidism, was started on chemotherapy Cytoxan, etoposide and prednisone. She was discharged to home 04/30/2019, with a total bili of 4.1 comes in to the emergency room with significant jaundice of 2 days' duration, increasing weakness, and severe anemia. Diminished appetite, increasing abdominal distention, and increasing dependent edema legs patient denies any palpitations or chest pain or pleurisy, no melena and hematochezia Emergency room, she has a WBC count of 0.2, hemoglobin 4.7, platelet count of 22 INR of 1.2, creatinine 0.5, total bilirubin of 6.5 from a previous number of 4.12 days ago.. Patient admitted to the ICU secondary to severe anemia and jaundice, this could be related to out to immune hemolytic anemia, oncology is on consult, Dr. Patrick is on consult for pulmonary medicine 2 units of packed red blood cells irradiated blood is currently being infused, possibility of right lower lobe pneumonia and parapneumonic effusion, started on IV antibiotic 05/05: Patient is still in ICU, feels more short of breath, hemoglobin currently is at 6.2, platelet count of 14, 7.1, patient has no shortness of breath or palpitations, still has diminished appetite, vital signs are stable in ICU, ultrasound shows moderate ascites, has dependent edema with anasarca will going to transfuse 1 unit of packed red blood cells irradiated blood, along with increase in the furosemide to 20 mg every 12 hours. Caution for hypotension, as her protein stores are low, with ongoing sepsiswill going to transfuse 1 unit of packed red blood cells irradiated blood, along with decrease in the torsemide to 20 mg every 12 h we will request dr neil to see her for physcial deconditioning , eval for IP rehab, will request PT OT eval 05/06: Patient remains in ICU, hemoglobin of 6.2, more edema noted today, more abdominal distention today, however she still comfortable with her abdomen, platelet count is still low at 11, no plan for rbc transfusion today per oncology, we'll going to discontinue amlodipine and lisinopril to allow more d iuretic use, increase furosemide to 40 mg every 12 hours, continued Aldactone 25, she remains on Prandin, and dexamethasone, blood sugars are between 182-212, creatinine 0.56. Patient does not have any chest pain, no palpitations, no insomnia, she is on supplement 3 times a day at 60 g of protein per day along with her meals, albumin is low at 2.5, blood pressure 110-120 systolic 05/07, patient's demise in ICU, hemoglobin 6.0, still edematous, legs and arms bilaterally, anasarca still, no shortness of breath no palpitations, blood pressure is stable for increasing doses of Lasix adjusted to 40 every 8 hours,, has been off Lotrel patient would have an Conrado wrap today, and 1 unit of packed red blood cells today per oncology, no diarrhea, blood sugars ranging between 179-228, no change in Prandin, bilirubin now lower at 3.3, 05/08 patient evaluated bedside had a hemoglobin of 5.6 status post 2 units of packed red blood cells irradiated Repeat hemoglobin pending. Blood sugar under control patient has completed Decadron and 16 doses last night. Total bilirubin has improved to 2.6. Vitals assessed suggested temp of 97.9 pulse 15 blood pressure 122/71 saturating well on room air. Patient appears to be edematous in the lower extremities is otherwise doing well describes increased lethargy and is due for her second cycle on May 16. Started on Lasix 40 every 8 hours. Chest x-ray did show some concern for right lower lobe infiltrate versus atelectasis. Empiric antibiotic in the form of vancomycin and cefepime started blood culture so far negative patient evaluated bedside hemoglobin stable at 7.4 patient has a leukocytosis of 20.6. Continue on Lasix 40 IV every 8 with Aldactone 25 mg by mouth daily. Patient feels weak denies any shortness of breath or abdominal. Patient has bilateral lower extremity edema wrapped in Conrado wraps improved. Abdomen appears distended but patient denies any constipation, feeling of fullness. Patient received 1 dose of albumin for a low albumin today 05/11: Patient has improvement of the lower extremity edema from yesterday. She has been eating Magic cups. She continues to have abdominal loading for which a therapeutic paracentesis will be ordered. Pro-calcitonin ordered to rule out pneumonia. Blood sugars are in the 200s and NPH will be increased to 10 units twice daily. Patient remains in the intensive care unit but has been cleared by Dr. Hurley for transfer to the oncology unit. She has been afebrile, blood pressure 116/62, pulse ox 94% on room air. She denies shortness of breath. Hemoglobin stable at 7.4, WBC 29.9, platelet count 70. Liver enzymes remain elevated with AST 37, ALT 37, alkaline phosphatase 179. Anticipate possible discharge in the next 24-48 hours. 05/12: Yesterday, patient underwent paracentesis with interventional radiology with removal of 2.3 L of straw-colored fluid. Pathology report is pending. RBCs 675, nucleated cells 30, polynuclear 45, mononuclear 55, albumin less than 1, LDH 95. Repeat hemoglobin this morning is 6.7 and 1 unit of packed RBCs will be ordered for the patient. Platelet count is 65, WBC 23. CO2 35, BUN 25 and creatinine 0.7. Liver function tests remain elevated with total bilirubin of 3.2, AST 39, ALT 35, alkaline phosphatase 188. Case discussed with Dr. Beltran. He plans to start chemotherapy on Wednesday for which patient will be returning to the hospital. [facility] has not accepted the patient so her discharge plan is now home with [facility]. We will plan to order repeat CBC on Wednesday. At this time, blood bank is unable to obtain blood for transfusion immediately, anticipate that transfusion will not occur until late tonight or tomorrow. Discharge will be planned for tomorrow. 05/13: Patient was transfused 1 unit of packed RBCs and repeat hemoglobin today 7.7, platelet count 66, WBC 27.2. Blood sugars remain elevated. She does have follow-up appointment with oncology on Wednesday and most likely will return for next round of chemotherapy. She denies any nausea vomiting and states she is eating well. Lower extremity edema remains but upper extremity is significantly improved. Patient will be discharged home today in stable condition. Discharge diagnoses: 1. Severe pancytopenia, recent chemotherapy for T-cell lymphoma with hemolytic anemia, severe jaundice, status post 9 units packed red blood cell. 2. Angioimmunoblastic T-cell lymphoma CD30 (final pathologic report with [facility]) 3. Severe jaundice, unconjugated bilirubin fractionation, suspect hemolytic anemia. 4. Anasarca, with abdominal distention, moderate ascites status post paracentesis 5. Gram-negative pneumonia possibility 6. Tumor lysis syndrome hx. 7. Diabetes mellitus type 2, uncontrolled with hyperglycemia secondary to steroids. 8. Hyperlipidemia. 9. Hypothyroidism. 10. Diverticulosis. 11. Recurrent Depression. 12. Hypertension and hypertensive cardiovascular disease stable. 13. Hepatocellular disease. 14. Debility with physical deconitioning 15. Moderate severe protein malnutrition Discharge plan: Home with [facility] Impression and plan of care have been directed as dictated by the signing physician. Verito Veloz nurse practitioner acting as scribe for signing physician. Patient Condition at Discharge: Good Plan - Discharge Summary New Discharge Prescriptions: New Dexamethasone [Decadron] 4 mg PO DIRECTED #80 tablet Spironolactone [Aldactone] 25 mg PO DAILY #30 tab Melatonin 6 mg PO HS PRN tablet PRN Reason: insomnia Nystatin 100,000 Unit/ml Susp [Mycostatin Oral Susp] 5 ml PO 5XD #45 cup sitaGLIPtin PHOSPHATE [Januvia] 50 mg PO DAILY #30 tab Furosemide [Lasix] 40 mg PO BID #60 tablet metFORMIN HCL 1,000 mg PO BID #60 tab Lidocaine Viscous [Xylocaine Viscous 2%] 30 ml PO 5XD #45 dose Continue Levothyroxine Sodium [Levoxyl] 50 mcg PO DAILY Venlafaxine HCl [Effexor] 75 mg PO DAILY Ibuprofen [Motrin] 800 mg PO TID PRN PRN Reason: Pain Loratadine [Claritin] 10 mg PO DAILY Discontinued amLODIPine BESYLATE/BENAZEPRIL [Lotrel 5-40 mg Capsule] 1 cap PO DAILY Rosuvastatin Calcium [Crestor] 5 mg PO DAILY metFORMIN HCL [Glucophage] 500 mg PO BID Discharge Medication List Levothyroxine Sodium [Levoxyl] 50 mcg PO DAILY 04/03/19 [History] Ibuprofen [Motrin] 800 mg PO TID PRN 04/19/19 [History] Venlafaxine HCl [Effexor] 75 mg PO DAILY 04/19/19 [History] Loratadine [Claritin] 10 mg PO DAILY 05/03/19 [History] Dexamethasone [Decadron] 4 mg PO DIRECTED #80 tablet 05/11/19 [Rx] Furosemide [Lasix] 40 mg PO BID #60 tablet 05/12/19 [Rx] Melatonin 6 mg PO HS PRN tablet 05/12/19 [Rx] Nystatin 100,000 Unit/ml Susp [Mycostatin Oral Susp] 5 ml PO 5XD #45 cup 05/12/19 [Rx] Spironolactone [Aldactone] 25 mg PO DAILY #30 tab 05/12/19 [Rx] metFORMIN HCL 1,000 mg PO BID #60 tab 05/12/19 [Rx] sitaGLIPtin PHOSPHATE [Januvia] 50 mg PO DAILY #30 tab 05/12/19 [Rx] Lidocaine Viscous [Xylocaine Viscous 2%] 30 ml PO 5XD #45 dose 05/13/19 [Rx] Follow up Appointment(s)/Referral(s): Messi Gaffney MD [Primary Care Provider] - 1 Week (Please call the office on 05/15/2019 to schedule your follow-up appointment. The office was closed at time of discharge.) [facility] Visiting Nurse, [NON-STAFF] - 1 Week Biju Gonzalez MD [STAFF PHYSICIAN] - 05/16/19 12:30 pm Activity/Diet/Wound Care/Special Instructions: Continue protein supplementation. Discharge Disposition: HOME WITH HOME HEALTH SERVICES
--- NOTE | 2019-05-15 15:37 | CDI ---
Documentation Clarification Form Date: 05/15/2019 From: Giovanna Noyola Phone: If you have a question about this query, please contact [employer] at [phone] between 8am and 5pm. Admit Date: 05/03/19 Discharge Date:05/13/2019 Patient Name: Mariela Galvan Visit Number: [id number] ATTENTION: The Clinical Documentation Specialists (CDI) and [facility] Coding Staff appreciate your assistance in clarifying documentation. Please respond to the clarification below the line at the bottom and electronically sign. The CDI & [facility] Coding staff will review the response and follow-up if needed. Please note: Queries are made part of the Legal Health Record. If you have any questions, please contact the author of this message via ITS. Dear Dr. Tish Adair The patient presented with severe pancytopenia from recent chemotherapy and severe jaundice. Neutropenic sepsis was documented in Dr. Byrd's and Dr. Hurley's progress notes but not documented in the discharge summary. History/Risk Factors: Possible gram negative pneumonia, angioimmunoblastic t- cell lymphoma, suspect hemolytic anemia Clinical Indicators: Elevated procalcitonin, decreased WBC, elevated lactic acid Labs: WBC: 0.4 on admission, Lactic acid: 2.7, procalcitonin 0.42 Blood cultures: No growth. Vitals signs on admission: 99.0, P. 106, R. 20, BP 129/75 Treatment: Antibiotics: IV Cefepime, IV Vancomycin IV Bolus: 1 Liter In your professional opinion, please clarify if these findings signify one of the following conditions, whether the condition is POA, and cause, if known: Condition Sepsis ruled out SIRS, without underlying infectious process Sepsis Severe Sepsis Other, please specify Unable to determine Present on Admission Yes No Identify the (suspected) organism severe neutropenic sepsis, klebsiella bacteremia MTDD
== END 2019-05-13 14:58 | disposition home health service (06) | DRG 871 ==
LOC: EC 14:29 → 2SICU 17:36 → 5NMEDONC 05-11 15:17
PROVIDERS: ADMIT Family Medicine; ATTEND Family Medicine
PROC: 30243N1 Transfusion of Nonautologous Red Blood Cells into Central Vein, Percutaneous Approach (ICD-10-PCS; principal; 2019-05-04)
PROC: 0W9G3ZZ Drainage of Peritoneal Cavity, Percutaneous Approach (ICD-10-PCS; 2019-05-11)
DX: A41.9 Sepsis, unspecified organism (principal); D61.810 Antineoplastic chemotherapy induced pancytopenia; E43 Unspecified severe protein-calorie malnutrition; J15.6 Pneumonia due to other Gram-negative bacteria; C86.5 Angioimmunoblastic T-cell lymphoma; F33.9 Major depressive disorder, recurrent, unspecified; J90 Pleural effusion, not elsewhere classified; J98.11 Atelectasis; R18.8 Other ascites; D59.1 Other autoimmune hemolytic anemias; I11.9 Hypertensive heart disease without heart failure; I95.9 Hypotension, unspecified; T45.1X5A Adverse effect of antineoplastic and immunosuppressive drugs, initial encounter; D75.89 Other specified diseases of blood and blood-forming organs; E03.9 Hypothyroidism, unspecified; E11.65 Type 2 diabetes mellitus with hyperglycemia; E66.01 Morbid (severe) obesity due to excess calories; E78.5 Hyperlipidemia, unspecified; E87.70 Fluid overload, unspecified; K57.90 Diverticulosis of intestine, part unspecified, without perforation or abscess without bleeding; T38.0X5A Adverse effect of glucocorticoids and synthetic analogues, initial encounter; R16.1 Splenomegaly, not elsewhere classified; K76.9 Liver disease, unspecified; Z68.39 Body mass index [BMI] 39.0-39.9, adult; Z79.84 Long term (current) use of oral hypoglycemic drugs; Z79.890 Hormone replacement therapy; Z79.899 Other long term (current) drug therapy; Z88.0 Allergy status to penicillin; Z90.710 Acquired absence of both cervix and uterus; Z85.3 Personal history of malignant neoplasm of breast; Z92.3 Personal history of irradiation; Z80.0 Family history of malignant neoplasm of digestive organs; Z80.3 Family history of malignant neoplasm of breast; Z82.49 Family history of ischemic heart disease and other diseases of the circulatory system
CPT/HCPCS: 36415; 49083; 71045; 71046; 76705; 80048; 80053; 80202; 81001; 82042; 82248; 82550; 82728; 83010; 83540; 83550; 83605; 83615; 83735; 83880; 84145; 84484; 85025; 85027; 85045; 85610; 85730; 86850; 86860; 86870; 86880; 86885; 86900; 86901; 86902; 86920; 86978; 87040; 87070; 87075; 87205; 88108; 88305; 88341; 88342; 89050; 93005; 99285

== ENCOUNTER 2019-05-24 09:50 | Inpatient (IN) | payer MEDICARE, BC ==
[2019-05-24] MEDS ORDERED: ONDANSETRON 4 MG/2 ML VIAL IVP STA (10:06)
[2019-05-24] MEDS ORDERED: SODIUM CHLORIDE 0.9% 1,000 ML IV STA (10:06)
[2019-05-24] MEDS ORDERED: CEFEPIME 2 GM in SODIUM CHLORIDE 0.9% 100 ML IVPB STA (10:25)
[2019-05-24] MEDS ORDERED: VANCOMYCIN IV PER PHARMACY 1 EACH MISC MISCELLANE PRN (10:25)
[2019-05-24] MEDS ORDERED: VANCOMYCIN 1,500 MG in SODIUM CHLORIDE 0.9% 250 ML IVPB ONE (10:30)
[2019-05-24 10:46] LABS: VBG PH 7.34 (7.31-7.41)
[2019-05-24 10:59] LABS: Anisocytosis Moderate; MCH 30.8 pg (25.0-35.0); MCV 93.5 fL (80.0-100.0); Macrocytosis Slight; Mean Platelet Volume 9.9; RBC 2.01 m/uL (3.80-5.40); RDW 20.4 % (11.5-15.5)
[2019-05-24 11:02] LABS: INR 1.6 (<1.2); Partial Thromboplastin Time 32.4 sec (22.0-30.0); Prothrombin Time 15.5 sec (9.0-12.0)
[2019-05-24 11:03] LABS: HCT 18.8 % (34.0-46.0)
--- NOTE | 2019-05-24 11:08 | CT ---
EXAMINATION TYPE: CT brain wo con DATE OF EXAM: 05/24/2019 HISTORY: Weakness CT DLP: 1099.4 mGycm. Automated Exposure Control for Dose Reduction was Utilized. TECHNIQUE: CT scan of the head is performed without contrast. COMPARISON: None. FINDINGS: There is no acute intracranial hemorrhage or midline shift identified. There is diffuse v entricular and sulcal prominence consistent with diffuse age-related cerebral atrophy. There is low- attenuation in the periventricular white matter consistent with chronic small vessel ischemic change. The globes are intact and the visualized sinuses are clear. IMPRESSION: No acute intracranial hemorrhage or midline shift. There is mild diffuse age-related ce rebral atrophy and chronic small vessel ischemic change noted.
[2019-05-24 11:10] LABS: Ionized Calcium 4.7 mg/dL (4.5-5.3)
--- NOTE | 2019-05-24 11:10 | ED ---
General Adult HPI - General Chief complaint: Weakness Stated complaint: Weakness Time Seen by Provider: 05/24/19 09:53 Source: patient Mode of arrival: EMS Limitations: no limitations - History of Present Illness Initial comments: Dictation was produced using [employer] dictation software. please excuse any grammatical, word or spelling errors. Chief Complaint: 68-year-old female past medical history of T-cell lymphoma, hemolytic anemia and neutropenia sepsis presents with shortness of breath and lethargy. History of Present Illness: 68-year-old female she was just discharged from her facility approximately 10 days ago. Patient was admitted to intensive care unit for hemolytic anemia, neutropenic sepsis. She presents today because she's been having worsening shortness of breath and generalized weakness. Patient is unable to provide detailed H&P at this time secondary to mental status. and second family member at bedside reports that patient appears significantly lethargic today. He also noticed that patient's abdomen is distended again. They report that she had a paracentesis performed a sinus earlier this year. Patient states that she is short of breath and weak. The ROS documented in this emergency department record has been reviewed and confirmed by me. Those systems with pertinent positive or negative responses have been documented in the HPI. All other systems are other negative and/or noncontributory. PHYSICAL EXAM: General Impression: Alert and oriented x3, lethargic HEENT: Normocephalic atraumatic, extra-ocular movements intact, pupils equal and reactive to light bilaterally, dry mucous membranes Cardiovascular: Tachycardic Chest: Lungs clear to auscultation bilaterally, no rhonchi, no wheeze, no rales Abdomen: Bowel sounds present, soft, minimally distended, positive fluid wave Musculoskeletal: Weak pulses present and equal in all extremities, no peripheral edema Motor: no focal deficits noted Neurological: CN II-XII grossly intact, no focal motor or sensory deficits noted Skin: Intact with no visualized rashes ED course: 68-year-old female presents with lethargy shortness of breath. Vital signs upon arrival shows heart rate of 144 she is 93% on room air. Patient is l ethargic at bedside. Chart review was performed. It appears the patient has complex medical history secondary to complications with T-cell lymphoma and T- cell lymphoma treatment.IV axis was established. Patient given 1 L normal saline bolus. Patient is complex medical history. Discussed patient case with Kimber who is taking calls for oncology Dr. Beltran. Her recommendation was to provide steroids in order hematologic labs. She also recommended giving vitamin K.Laboratory evaluation obtained. Pancytopenia with leukopenia of 0.1, hemoglobin 6.2, hematocrit of 18, platelets of 15. Coag panel shows INR 1.6. Venous blood gas shows pH of 7.3, pCO2 34 with a bicarb of 18. Sodium 136. Anion gap acidosis. Acute kidney injury with creatinine 1.79 and BUN of 65. Lactic acidosis of 11.6. Magnesium of 1.5. Elevated bilirubins with total bilirubin of 4.3. Elevated troponin 0.058. Patient has acute kidney injury, trauma is likely secondary to a TIA. She is pancytopenia. Patient reevaluated after multiple boluses of fluids. She has waxing waning blood pressures last blood pressure 90/40. Discussed patient case with Dr. Byrd was willing to accept patient's care in the intensive care unit. Patient covered with broad- spectrum antibiotics. Patient given parenteral magnesium for hypomagnesemia. Patient appears improved after intravenous fluids. She will however still be disposition to intensive care unit. Oncology consulted. Patient given hydrocortisone for pressure support. EKG interpretation: Ventricular rate 145, sinus tachycardia,. 1:30, care 72, QTC 400. No MN prolongation, no QTC prolongation, no ST or T-wave changes noted. - Related Data Home Medications Medication Instructions Recorded Confirmed Levothyroxine Sodium [Levoxyl] 50 mcg PO DAILY 04/03/19 05/24/19 Ibuprofen [Motrin] 800 mg PO TID PRN 04/19/19 05/24/19 Venlafaxine HCl [Effexor] 75 mg PO HS 04/19/19 05/24/19 Loratadine [Claritin] 10 mg PO DAILY 05/03/19 05/24/19 Fexofenadine/Pseudoephedrine 1 tab PO BID PRN 05/24/19 05/24/19 [Marimar-D 12 Hour Tablet] Lidocaine-Prilocaine Cream [Emla 1 applic TOPICAL DAILY PRN 05/24/19 05/24/19 Cream 2.5%/2.5%] predniSONE 100 mg PO DIRECTED 05/24/19 05/24/19 Previous Rx's Medication Instructions Recorded Furosemide [Lasix] 40 mg PO BID #60 tablet 05/12/19 Melatonin 6 mg PO HS PRN tablet 05/12/19 Nystatin 100,000 Unit/ml Susp 5 ml PO 5XD #45 cup 05/12/19 [Mycostatin Oral Susp] Spironolactone [Aldactone] 25 mg PO DAILY #30 tab 05/12/19 metFORMIN HCL 1,000 mg PO BID #60 tab 05/12/19 sitaGLIPtin PHOSPHATE [Januvia] 50 mg PO DAILY #30 tab 05/12/19 Lidocaine Viscous [Xylocaine 30 ml PO 5XD #45 dose 05/13/19 Viscous 2%] Allergies Allergy/AdvReac Type Severity Reaction Status Date / Time Penicillins Allergy Unknown Rash/Hives Verified 05/24/19 11:15 Review of Systems ROS Statement: Those systems with pertinent positive or pertinent negative responses have been documented in the HPI. ROS Other: All systems not noted in ROS Statement are negative. Past Medical History Past Medical History: Cancer, Diabetes Mellitus, Hyperlipidemia, Hypertension, Thyroid Disorder Additional Past Medical History / Comment(s): Pt states she was told 04/18/19 that she has lymphoma-no treatment plan yet, recent hands/legs/feet edema, 2009 R breast cancer with lumpectomy and radiation treatments, NIDDM type II, hypothyroid, diverticular disease History of Any Multi-Drug Resistant Organisms: None Reported Past Surgical History: Breast Surgery, Section, Hysterectomy Additional Past Surgical History / Comment(s): 04/12/19 R supraclavicular lymph node core biopsy, right breast lumpectomy, colonoscopy Past Anesthesia/Blood Transfusion Reactions: No Reported Reaction Past Psychological History: No Psychological Hx Reported Smoking Status: Never smoker Past Alcohol Use History: Rare Past Drug Use History: None Reported - Past Family History Father Family Medical History: Myocardial Infarction (IA) Additional Family Medical History / Comment(s): IA times 2-first IA at the age of 35yrs and from 2nd IA at the age of age 52 Mother Family Medical History: Cancer Additional Family Medical History / Comment(s): Mother of pancreatic cancer in her 70s. Brother(s) History Unknown: Yes Sister(s) Family Medical History: Cancer Daughter(s) Family Medical History: No Reported History Son(s) Family Medical History: No Reported History General Exam Limitations: no limitations Course Vital Signs 05/24/19 05/24/19 05/24/19 09:53 10:25 10:30 Temperature 99.6 F Pulse Rate 144 H 134 H Pulse Rate [ 141 H Bilateral] Respiratory 18 20 Rate Blood Pressure 121/52 120/50 O2 Sat by Pulse 93 L 97 Oximetry 05/24/19 05/24/19 05/24/19 11:30 11:54 12:08 Temperature 98.5 F Pulse Rate 128 H Pulse Rate [ Bilateral] Respiratory 17 Rate Blood Pressure 88/40 90/52 93/45 O2 Sat by Pulse 96 Oximetry Procedures - [place] Protocol (Time Out) Nurse: Dayana Powell Medical Decision Making - Lab Data Result diagrams: 05/24/19 10:23 05/24/19 10:23 Lab Results 05/24/19 05/24/19 05/24/19 Range/Units 10:23 10:23 10:23 WBC 0.1 L* (3.8-10.6) k/uL RBC 2.01 L (3.80-5.40) m/uL Hgb 6.2 L* D (11.4-16.0) gm/dL Hct 18.8 L* (34.0-46.0) % MCV 93.5 (80.0-100.0) fL MCH 30.8 (25.0-35.0) pg MCHC 33.0 (31.0-37.0) g/dL RDW 20.4 H (11.5-15.5) % Plt Count 15 L* D (150-450) k/uL Neutrophils % Not Reportable Lymphocytes % Not Reportable Monocytes % Not Reportable Eosinophils % Not Reportable Basophils % Not Reportable Neutrophils # Not Reportable Lymphocytes # Not Reportable Monocytes # Not Reportable Eosinophils # Not Reportable Basophils # Not Reportable Differential Comment Manual Slide Review Performed Poikilocytosis (manual Present Anisocytosis Moderate Macrocytosis Slight PT (9.0-12.0) sec INR (<1.2) APTT (22.0-30.0) sec VBG pH (7.31-7.41) VBG pCO2 (37-51) mmHg VBG HCO3 (24-28) mmol/L Sodium 136 L (137-145) mmol/L Potassium 4.9 (3.5-5.1) mmol/L Chloride 103 (98-107) mmol/L Carbon Dioxide 17 L (22-30) mmol/L Anion Gap 16 mmol/L BUN 65 H (7-17) mg/dL Creatinine 1.79 H (0.52-1.04) mg/dL Est GFR (CKD-EPI)AfAm 33 (>60 ml/min/1.73 sqM) Est GFR (CKD-EPI)NonAf 29 (>60 ml/min/1.73 sqM) Glucose 164 H (74-99) mg/dL Plasma Lactic Acid Carloz 11.6 H* (0.7-2.0) mmol/L Uric Acid 7.8 H (3.7-7.4) mg/dL Calcium 8.3 L (8.4-10.2) mg/dL Ionized Calcium Elvira 4.7 (4.5-5.3) mg/dL Phosphorus 4.1 (2.5-4.5) mg/dL Magnesium 1.5 L (1.6-2.3) mg/dL Total Bilirubin 4.3 H (0.2-1.3) mg/dL Conjugated Bilirubin (0.0-0.3) mg/dL Unconjugated Bilirubin (0.0-1.1) mg/dL Delta Bilirubin (0.0-0.2) mg/dL AST 24 (14-36) U/L ALT 36 H (4-34) U/L Alkaline Phosphatase 59 (38-126) U/L Lactate Dehydrogenase 280 L (313-618) U/L Troponin I (0.000-0.034) ng/mL Total Protein 4.0 L (6.3-8.2) g/dL Albumin 2.1 L (3.5-5.0) g/dL TSH 1.190 (0.465-4.680) mIU/L 05/24/19 05/24/19 05/24/19 Range/Units 10:23 10:23 10:23 WBC (3.8-10.6) k/uL RBC (3.80-5.40) m/uL Hgb (11.4-16.0) gm/dL Hct (34.0-46.0) % MCV (80.0-100.0) fL MCH (25.0-35.0) pg MCHC (31.0-37.0) g/dL RDW (11.5-15.5) % Plt Count (150-450) k/uL Neutrophils % Lymphocytes % Monocytes % Eosinophils % Basophils % Neutrophils # Lymphocytes # Monocytes # Eosinophils # Basophils # Differential Comment Manual Slide Review Poikilocytosis (manual Anisocytosis Macrocytosis PT 15.5 H (9.0-12.0) sec INR 1.6 H (<1.2) APTT 32.4 H (22.0-30.0) sec VBG pH 7.34 (7.31-7.41) VBG pCO2 34 L (37-51) mmHg VBG HCO3 18 L (24-28) mmol/L Sodium (137-145) mmol/L Potassium (3.5-5.1) mmol/L Chloride (98-107) mmol/L Carbon Dioxide (22-30) mmol/L Anion Gap mmol/L BUN (7-17) mg/dL Creatinine (0.52-1.04) mg/dL Est GFR (CKD-EPI)AfAm (>60 ml/min/1.73 sqM) Est GFR (CKD-EPI)NonAf (>60 ml/min/1.73 sqM) Glucose (74-99) mg/dL Plasma Lactic Acid Carloz (0.7-2.0) mmol/L Uric Acid (3.7-7.4) mg/dL Calcium (8.4-10.2) mg/dL Ionized Calcium Elvira (4.5-5.3) mg/dL Phosphorus (2.5-4.5) mg/dL Magnesium (1.6-2.3) mg/dL Total Bilirubin (0.2-1.3) mg/dL Conjugated Bilirubin (0.0-0.3) mg/dL Unconjugated Bilirubin (0.0-1.1) mg/dL Delta Bilirubin (0.0-0.2) mg/dL AST (14-36) U/L ALT (4-34) U/L Alkaline Phosphatase (38-126) U/L Lactate Dehydrogenase (313-618) U/L Troponin I 0.058 H* (0.000-0.034) ng/mL Total Protein (6.3-8.2) g/dL Albumin (3.5-5.0) g/dL TSH (0.465-4.680) mIU/L 05/24/19 Range/Units 10:23 WBC (3.8-10.6) k/uL RBC (3.80-5.40) m/uL Hgb (11.4-16.0) gm/dL Hct (34.0-46.0) % MCV (80.0-100.0) fL MCH (25.0-35.0) pg MCHC (31.0-37.0) g/dL RDW (11.5-15.5) % Plt Count (150-450) k/uL Neutrophils % Lymphocytes % Monocytes % Eosinophils % Basophils % Neutrophils # Lymphocytes # Monocytes # Eosinophils # Basophils # Differential Comment Manual Slide Review Poikilocytosis (manual Anisocytosis Macrocytosis PT (9.0-12.0) sec INR (<1.2) APTT (22.0-30.0) sec VBG pH (7.31-7.41) VBG pCO2 (37-51) mmHg VBG HCO3 (24-28) mmol/L Sodium (137-145) mmol/L Potassium (3.5-5.1) mmol/L Chloride (98-107) mmol/L Carbon Dioxide (22-30) mmol/L Anion Gap mmol/L BUN (7-17) mg/dL Creatinine (0.52-1.04) mg/dL Est GFR (CKD-EPI)AfAm (>60 ml/min/1.73 sqM) Est GFR (CKD-EPI)NonAf (>60 ml/min/1.73 sqM) Glucose (74-99) mg/dL Plasma Lactic Acid Carloz (0.7-2.0) mmol/L Uric Acid (3.7-7.4) mg/dL Calcium (8.4-10.2) mg/dL Ionized Calcium Elvira (4.5-5.3) mg/dL Phosphorus (2.5-4.5) mg/dL Magnesium (1.6-2.3) mg/dL Total Bilirubin 4.3 H (0.2-1.3) mg/dL Conjugated Bilirubin 0.6 H (0.0-0.3) mg/dL Unconjugated Bilirubin 2.1 H (0.0-1.1) mg/dL Delta Bilirubin 1.6 H (0.0-0.2) mg/dL AST (14-36) U/L ALT (4-34) U/L Alkaline Phosphatase (38-126) U/L Lactate Dehydrogenase (313-618) U/L Troponin I (0.000-0.034) ng/mL Total Protein (6.3-8.2) g/dL Albumin (3.5-5.0) g/dL TSH (0.465-4.680) mIU/L Critical Care Time Critical Care Time: Yes (31) Disposition Clinical Impression: Pancytopenia, Dehydration Disposition[facility] Condition: Critical Referrals: Messi Gaffney MD [Primary Care Provider] - 1-2 days Decision Time: 12:20
[2019-05-24] MEDS ORDERED: HYDROCORTISONE SUCCINATE 100 MG/2 ML VIAL IV STA ×2 (11:12→22:16)
--- NOTE | 2019-05-24 11:14 | XR ---
EXAMINATION TYPE: XR chest 1V portable DATE OF EXAM: 05/24/2019 COMPARISON: CXR from 2 weeks ago. HISTORY: Weakness and fatigue; on chemotherapy. TECHNIQUE: Single frontal view of the chest is obtained. FINDINGS: Stable right internal jugular Mediport catheter. Persistent low lung volumes and cardiomeg margaret with central vascular congestion and patchy lateral left basilar opacity. Degenerative change bot h shoulders redemonstrated. Overlying EKG leads again seen. IMPRESSION: Persistent low lung volumes. Persistent cardiomegaly and Central vascular congestion and left lateral basal acute atelectasis and/or infiltrate. No significant change from recent chest x-ra y.
[2019-05-24] MEDS ORDERED: PHYTONADIONE 2 MG in SODIUM CHLORIDE 0.9% 50 ML IVPB STA (11:15)
[2019-05-24 11:19] LABS: WBC 0.1 k/uL (3.8-10.6)
[2019-05-24 11:20] LABS: HGB 6.2 gm/dL (11.4-16.0)
[2019-05-24 11:23] LABS: Platelet Count 15 k/uL (150-450); Poikilocytosis (M) Present
[2019-05-24 11:34] LABS: Albumin 2.1 g/dL (3.5-5.0); Calcium 8.3 mg/dL (8.4-10.2); Magnesium 1.5 mg/dL (1.6-2.3); Phosphorus 4.1 mg/dL (2.5-4.5); Potassium 4.9 mmol/L (3.5-5.1); Total Bilirubin 4.3 mg/dL (0.2-1.3); Uric Acid 7.8 mg/dL (3.7-7.4)
[2019-05-24 11:56] LABS: Bilirubin, Conjugated 0.6 mg/dL (0.0-0.3); Bilirubin, Delta 1.6 mg/dL (0.0-0.2); Bilirubin,Unconjugated 2.1 mg/dL (0.0-1.1); Total Bilirubin 4.3 mg/dL (0.2-1.3)
[2019-05-24] MEDS ORDERED: ACETAMINOPHEN TAB 325 MG TAB PO PRN (12:14)
[2019-05-24] MEDS ORDERED: ONDANSETRON 4 MG/2 ML VIAL IVP PRN (12:14)
[2019-05-24] MEDS ORDERED: NALOXONE 0.4 MG/ML 1 ML VIAL IV PRN (12:14)
[2019-05-24] MEDS ORDERED: IMMUNE GLOBULIN (GAMMAGARD) 30 GM in EMPTY BAG 1 BAG IV NR (12:30)
[2019-05-24] MEDS ORDERED: IMMUNE GLOBULIN (GAMMAGARD) 5 GM in EMPTY BAG 1 BAG IV NR (12:30)
[2019-05-24] MEDS: MAGNESIUM SULFATE-D5W PMX 1 GM in DEXTROSE/WATER 1 100ML.BAG IVPB SCH ×2 (13:10→15:00)
[2019-05-24] MEDS: SODIUM CHLORIDE 0.9% 1,000 ML IV SCH ×2 (13:11→22:26)
[2019-05-24] MEDS: DEXAMETHASONE 4 MG TAB PO SCH ×2 (13:33→13:46)
[2019-05-24 13:52] LABS: Glucose,Whole Blood 163 mg/dL (75-99)
--- NOTE | 2019-05-24 14:56 | P.HPIM ---
History of Present Illness H&P Date: 05/24/19 Chief Complaint: Weakness This is a 68-year-old female patient Dr. Gaffney with a previous medical history for hypertension and hypertensive cardiovascular disease, hy perlipidemia, new diagnosis of diabetes mellitus type 2, history of breast cancer status post right lumpectomy with radiation therapy, diverticulosis, hypothyroidism, agioimmunoblastic T-cell lymphoma CD30 under the care of Dr. Gonzalez, history of tumor lysis syndrome. Patient's had a recent hospitalization at the end of April which time she presented with jaundice following her first cycle of chemotherapy. Patient was admitted into the intensive care unit for neutropenic sepsis and lactic acidosis, severe pancytopenia. Patient was discharged home with VNA. Patient subsequently underwent additional chemotherapy and had followed up with Dr. Gonzalez and had lab work done in the office and hemoglobin on Wednesday was 7.6. Patient's states he thought she was doing well after the last chemotherapy treatments. Wednesday she did have some complaints of abdominal pain which they thought was related to the fish that she ate. Last evening she got to the bathroom several times and her sophie athing seemed to be labored. Patient did not have any vomiting. Patient had weakness all over her body was unable to get out of bed They were due today to see Felisa in [place] for consultation. Patient has experienced some edema to the abdomen: The legs that is better than last admission. No rashes. Patient's face is flushed. No specific jaundice is noted on this admission. Patient denies having any cough. Temperature maximum was 100.0. Patient presented to [facility] emergency center for evaluation found to have a WBC count of 0.1, hemoglobin 6.2 and platelet count 15, lactic acid 11.6, BUN 65, creatinine 1.79, total bilirubin 4.3, AST 24, ALT 36, alkaline phosphatase 59, LDH 280, troponin 0.058. Total bilirubin 4.3, conjugated bilirubin 0.6, unconjugated bilirubin 2.1, delta bilirubin 1.6. TSH 1.190. blood pressure 89/44, heart rate 128, pulse ox 96%. Chest x-ray reveals persistent low lung volumes. Persistent cardiomegaly and central vascular congestion and left lateral basal acute atelectasis and or infiltrate. No significant change from recent chest x-ray. CAT scan of the brain showed no acute intracranial hemorrhage or midline shift. Mild diffuse age-related cerebral atrophy and chronic small vessel ischemic change. Oncology has ordered dexamethasone, immunoglobulin. Patient was given 1 dose of cefepime and vancomycin. Status post vitamin K. She is waiting for an ICU bed. Consults for Dr. Byrd and Dr. Beltran. Review of Systems Constitutional: Reports fatigue, Reports lethargy, Reports malaise, Reports poor appetite, Reports weakness Eyes: denies blurred vision, denies pain Ears, nose, mouth and throat: Denies headache, Denies nasal congestion, Denies nasal discharge, Denies sore throat, Denies vertigo Cardiovascular: Reports edema, Reports leg edema, Reports shortness of breath, Denies chest pain, Denies decreased exercise tolerance, Denies dyspnea on exertion, Denies syncope Respiratory: Denies cough, Denies cough with sputum, Denies excessive sputum, Denies hemoptysis, Denies respiratory infections Gastrointestinal: Reports loss of appetite, Denies abdominal pain, Denies diarrhea, Denies nausea, Denies vomiting Genitourinary: Denies dysuria, Denies urgency, Denies urinary frequency Musculoskeletal: Reports muscle weakness, Denies myalgias Integumentary: Denies pruritus, Denies rash, Denies wounds Neurological: Reports weakness, Denies numbness Psychiatric: Denies anxiety, Denies depression Endocrine: Reports fatigue, Reports flushing, Denies weight change Past Medical History Past Medical History: Cancer, Diabetes Mellitus, Hyperlipidemia, Hypertension, Thyroid Disorder Additional Past Medical History / Comment(s): Pt states she was told 04/18/19 that she has lymphoma-no treatment plan yet, recent hands/legs/feet edema, 2009 R breast cancer with lumpectomy and radiation treatments, NIDDM type II, hypothyroid, diverticular disease History of Any Multi-Drug Resistant Organisms: None Reported Past Surgical History: Breast Surgery, Section, Hysterectomy Additional Past Surgical History / Comment(s): 04/12/19 R supraclavicular lymph n ode core biopsy, right breast lumpectomy, colonoscopy Past Anesthesia/Blood Transfusion Reactions: No Reported Reaction Past Psychological History: No Psychological Hx Reported Smoking Status: Never smoker Past Alcohol Use History: Rare Additional Past Alcohol Use History / Comment(s): Pt resides with her spouse. She is independent. She states lately though, she has not been driving, her spouse has been doing the driving. Past Drug Use History: None Reported - Past Family History Father Family Medical History: Myocardial Infarction (ME) Additional Family Medical History / Comment(s): ME times 2-first ME at the age of 35yrs and from 2nd ME at the age of age 52 Mother Family Medical History: Cancer Additional Family Medical History / Comment(s): Mother of pancreatic cancer in her 70s. Brother(s) History Unknown: Yes Sister(s) Family Medical History: Cancer Additional Family Medical History / Comment(s): Patient has 2 sisters one of them with breast cancer. Daughter(s) Family Medical History: No Reported History Additional Family Medical History / Comment(s): Patient has one daughter who is an ICU nurse no major medical problems. Son(s) Family Medical History: No Reported History Additional Family Medical History / Comment(s): Patient has one son no major medical problems. Medications and Allergies Home Medications Medication Instructions Recorded Confirmed Type Levothyroxine Sodium [Levoxyl] 50 mcg PO DAILY 04/03/19 05/24/19 History Ibuprofen [Motrin] 800 mg PO TID PRN 04/19/19 05/24/19 History Venlafaxine HCl [Effexor] 75 mg PO HS 04/19/19 05/24/19 History Loratadine [Claritin] 10 mg PO DAILY 05/03/19 05/24/19 History Furosemide [Lasix] 40 mg PO BID #60 tablet 05/12/19 05/24/19 Rx Melatonin 6 mg PO HS PRN tablet 05/12/19 05/24/19 Rx Nystatin 100,000 Unit/ml Susp 5 ml PO 5XD #45 cup 05/12/19 05/24/19 Rx [Mycostatin Oral Susp] Spironolactone [Aldactone] 25 mg PO DAILY #30 tab 05/12/19 05/24/19 Rx metFORMIN HCL 1,000 mg PO BID #60 tab 05/12/19 05/24/19 Rx sitaGLIPtin PHOSPHATE [Januvia] 50 mg PO DAILY #30 tab 05/12/19 05/24/19 Rx Lidocaine Viscous [Xylocaine 30 ml PO 5XD #45 dose 05/13/19 05/24/19 Rx Viscous 2%] Fexofenadine/Pseudoephedrine 1 tab PO BID PRN 05/24/19 05/24/19 History [Marimar-D 12 Hour Tablet] Lidocaine-Prilocaine Cream [Emla 1 applic TOPICAL DAILY PRN 05/24/19 05/24/19 History Cream 2.5%/2.5%] predniSONE 100 mg PO DIRECTED 05/24/19 05/24/19 History Allergies Allergy/AdvReac Type Severity Reaction Status Date / Time Penicillins Allergy Unknown Rash/Hives Verified 05/24/19 11:15 Physical Exam Vitals: Vital Signs Temp Pulse Pulse Resp BP Pulse Ox 05/24/19 12:08 98.5 F 93/45 05/24/19 11:54 90/52 05/24/19 11:30 128 H 17 88/40 96 05/24/19 10:30 134 H 20 120/50 97 05/24/19 10:25 141 H 05/24/19 09:53 99.6 F 144 H 18 121/52 93 L Intake and Output 05/23/19 05/24/19 05/24/19 22:59 06:59 14:59 Other: Weight 95.254 kg General appearance: average body habitus, moderate distress, patient is restless on stretcher - EENT Eyes: anicteric sclerae, EOMI, PERRLA, no ptosis, scleral mild icterus, normal appearance ENT: hearing grossly normal, NA/AT, normal oropharynx, no thrush Ears: bilateral: normal - Neck Neck: lymphadenopathy Thyroid: bilateral: enlarged - Respiratory Respiratory: bilateral: diminished, negative: dullness, rales, rhonchi, wh eezing, prolonged expiration - Cardiovascular Rhythm: regular Heart sounds: normal: S1, S2 Abnormal Heart Sounds: systolic murmur, no S3 Gallop, no S4 Gallop - Gastrointestinal General gastrointestinal: hepatomegaly, soft, splenomegaly, no tenderness, no umbilical hernia, no ventral hernia - Integumentary Integumentary: No petechiae, pale Facial flushing - Neurologic Neurologic: CNII-XII intact - Musculoskeletal Musculoskeletal: gait normal, generalized weakness - Psychiatric Psychiatric: A&O x's 2-3, generalized weakness, no focal neural deficits. Results CBC & Chem 7: 05/25/19 04:58 05/25/19 04:58 Labs: Abnormal Lab Results - Last 24 Hours (Table) 05/24/19 05/24/19 05/24/19 Range/Units 10:23 10:23 10:23 WBC 0.1 L* (3.8-10.6) k/uL RBC 2.01 L (3.80-5.40) m/uL Hgb 6.2 L* D (11.4-16.0) gm/dL Hct 18.8 L* (34.0-46.0) % RDW 20.4 H (11.5-15.5) % Plt Count 15 L* D (150-450) k/uL PT (9.0-12.0) sec INR (<1.2) APTT (22.0-30.0) sec VBG pCO2 (37-51) mmHg VBG HCO3 (24-28) mmol/L Sodium 136 L (137-145) mmol/L Carbon Dioxide 17 L (22-30) mmol/L BUN 65 H (7-17) mg/dL Creatinine 1.79 H (0.52-1.04) mg/dL Glucose 164 H (74-99) mg/dL Plasma Lactic Acid Carloz 11.6 H* (0.7-2.0) mmol/L Uric Acid 7.8 H (3.7-7.4) mg/dL Calcium 8.3 L (8.4-10.2) mg/dL Magnesium 1.5 L (1.6-2.3) mg/dL Total Bilirubin 4.3 H (0.2-1.3) mg/dL Conjugated Bilirubin (0.0-0.3) mg/dL Unconjugated Bilirubin (0.0-1.1) mg/dL Delta Bilirubin (0.0-0.2) mg/dL ALT 36 H (4-34) U/L Lactate Dehydrogenase 280 L (313-618) U/L Troponin I (0.000-0.034) ng/mL Total Protein 4.0 L (6.3-8.2) g/dL Albumin 2.1 L (3.5-5.0) g/dL Crossmatch 05/24/19 05/24/19 05/24/19 Range/Units 10:23 10:23 10:23 WBC (3.8-10.6) k/uL RBC (3.80-5.40) m/uL Hgb (11.4-16.0) gm/dL Hct (34.0-46.0) % RDW (11.5-15.5) % Plt Count (150-450) k/uL PT 15.5 H (9.0-12.0) sec INR 1.6 H (<1.2) APTT 32.4 H (22.0-30.0) sec VBG pCO2 34 L (37-51) mmHg VBG HCO3 18 L (24-28) mmol/L Sodium (137-145) mmol/L Carbon Dioxide (22-30) mmol/L BUN (7-17) mg/dL Creatinine (0.52-1.04) mg/dL Glucose (74-99) mg/dL Plasma Lactic Acid Carloz (0.7-2.0) mmol/L Uric Acid (3.7-7.4) mg/dL Calcium (8.4-10.2) mg/dL Magnesium (1.6-2.3) mg/dL Total Bilirubin (0.2-1.3) mg/dL Conjugated Bilirubin (0.0-0.3) mg/dL Unconjugated Bilirubin (0.0-1.1) mg/dL Delta Bilirubin (0.0-0.2) mg/dL ALT (4-34) U/L Lactate Dehydrogenase (313-618) U/L Troponin I 0.058 H* (0.000-0.034) ng/mL Total Protein (6.3-8.2) g/dL Albumin (3.5-5.0) g/dL Crossmatch 05/24/19 05/24/19 Range/Units 10:23 10:23 WBC (3.8-10.6) k/uL RBC (3.80-5.40) m/uL Hgb (11.4-16.0) gm/dL Hct (34.0-46.0) % RDW (11.5-15.5) % Plt Count (150-450) k/uL PT (9.0-12.0) sec INR (<1.2) APTT (22.0-30.0) sec VBG pCO2 (37-51) mmHg VBG HCO3 (24-28) mmol/L Sodium (137-145) mmol/L Carbon Dioxide (22-30) mmol/L BUN (7-17) mg/dL Creatinine (0.52-1.04) mg/dL Glucose (74-99) mg/dL Plasma Lactic Acid Carloz (0.7-2.0) mmol/L Uric Acid (3.7-7.4) mg/dL Calcium (8.4-10.2) mg/dL Magnesium (1.6-2.3) mg/dL Total Bilirubin 4.3 H (0.2-1.3) mg/dL Conjugated Bilirubin 0.6 H (0.0-0.3) mg/dL Unconjugated Bilirubin 2.1 H (0.0-1.1) mg/dL Delta Bilirubin 1.6 H (0.0-0.2) mg/dL ALT (4-34) U/L Lactate Dehydrogenase (313-618) U/L Troponin I (0.000-0.034) ng/mL Total Protein (6.3-8.2) g/dL Albumin (3.5-5.0) g/dL Crossmatch See Detail Thrombosis Risk Factor Assmnt - DVT/VTE Prophylaxis DVT/VTE Prophylaxis: Mechanical Prophylaxis ordered Assessment and Plan Plan: 1. Neutropenic sepsis with lactic acidosis and septic shock. Patient will be admitted to the intensive care unit, consult with barrel turner and oncology. Patient is status post dexamethasone and gammaglobulin. Cefepime 2 g every 24 hours, vancomycin. Pro-calcitonin, influenza, UA ordered. 2. Pancytopenia secondary to lymphoma and chemotherapy. Transfuse 1 unit packed RBCs. 3. Acute kidney injury. Avoid nephrotoxic agents 4. Elevated troponin. 5. T-cell lymphoma CD30 positive, status post chemotherapy. Oncology consult. 6. History of hypertension and hypertensive cardio vascular disease currently hypotensive. 7. Diabetes mellitus type 2. New onset. Discontinue metformin. 8. Hyperlipidemia. Off statin. 9. Hypothyroidism. Continue levothyroxine transitioned to IV 25 g daily. Home dose is 50 g daily. 10. History of tumor lysis syndrome. 11. Diverticulosis. Colonoscopy is up-to-date. 12. Recurrent depression. Currently on Effexor XR 75 mg orally once every day. 13. Hepatocellular disease. Status post vitamin K. 14. Moderate to severe protein malnutrition DVT prophylaxis. Bilateral knee- high THA hose. 15. GI prophylaxis. Start Protonix 40 mg IV push every 24 hours. 16. DVT prophylaxis. No heparin due to thrombocytopenia. Admit to inpatient estimated length of stay 2 midnights. Patient is full code. Discharge plan: Home with VNA Impression and plan of care have been directed as dictated by the signing physician. Verito Veloz nurse practitioner acting as scribe for signing physician.
[2019-05-24] MEDS ORDERED: SODIUM CHLORIDE 0.9% 1,000 ML IV ONE ×2 (15:34→22:17)
[2019-05-24] MEDS ORDERED: DEXAMETHASONE SOD PHOSPHATE 4 MG/ML 1 ML VIAL IV PRN (15:38)
[2019-05-24] MEDS: NOREPINEPHRINE 8 MG in SODIUM CHLORIDE 0.9% 250 ML IV SCH ×2 (16:26→21:46)
--- NOTE | 2019-05-24 16:26 | US ---
EXAMINATION TYPE: US abdomen limited DATE OF EXAM: 05/24/2019 COMPARISON: Prior ultrasound May 11, 2019. CLINICAL HISTORY: ascites. Ascites and swelling. There is small to moderate amount of recurrent abdominal ascites greatest in bilateral lower quadrant s felt slightly smaller from prior study before paracentesis was subsequently performed. IMPRESSION: As above.
[2019-05-24] MEDS: SODIUM CHLORIDE 0.9% 50 ML with VASOPRESSIN 20 UNIT IVPB SCH ×2 (17:39)
--- NOTE | 2019-05-24 18:22 | P.CNPUL ---
History of Present Illness Consult date: 05/24/19 Requesting physician: Messi Gaffney Reason for consult: other (Pancytopenia and neutropenic sepsis) Chief complaint: Weakness History of present illness: This is a 68-year-old female familiar to my service from her last admission. Patient is known to have history of angioimmunoblastic T-cell lymphoma, receiving chemotherapy by oncology/Dr. Gonzalez. Patient was recently admitted to the hospital with chemotherapy induced pancytopenia and neutropenic fever and sepsis. She was in the hospital for almost 2 weeks. And she was eventually discharged home and advised to follow up with oncology. Since discharge, the patient received again chemotherapy, and her last chemotherapy was last Wednesday. Since Wednesday the patient has been complaining of abdominal pain, weakness, loose stools, and noted her breathing was a bit labored. Patient felt generally weak, unable to get out of bed. She was supposed to see her oncologist today, however considering her multiple constitutional symptoms, patient decided to come to the ER. Patient was felt to have WBC count of 0.1 hemoglobin 6.2 platelets 15 l actic acid 11.6 creatinine 1.79 total bilirubin of 4.3 LDH 280. And she was noted to be hypotensive requiring fluid boluses, and after 3 L of fluids, patient was placed on norepinephrine to be titrated accordingly and possibly will add vasopressin if needed. Chest x-ray showed no evidence of pneumonia. It did show evidence of cardiomegaly and mild left basilar atelectasis. Patient was given broad-spectrum antibiotics by the ER physician including vancomycin and cefepime. And she was admitted to the ICU with the impression of sepsis and septic shock. I evaluated the patient in the ICU, recommended more fluids to be given, reviewed her antibiotics. And I recommended pressors starting with norepinephrine, and to add vasopressin if needed. Patient was on 2 L nasal cannula, O2 saturation was 94%. Blood pressure was 77/44 with a mean of 55. Respiration 25, and heart rate was 125 Review of Systems Constitutional: Weakness fatigue malaise Eyes: No diplopia, no blurred vision. Ears: No earache. Ears, nose, mouth and throat: No sore throat. No earache. No nasal discharge. Cardiovascular: No chest pain no palpitation. Respiratory: Mild shortness of breath no cough no wheezing no chest pain Gastrointestinal: No nausea no vomiting, she has vague abdominal discomfort and loose bowel movements. Genitourinary: No dysuria frequency urgency hematuria Musculoskeletal: Generalized weakness Integumentary: No rashes, no pruritus Neurological: No headache blurred vision or dizziness. Psychiatric: No symptoms of active depression. Endocrine: No heat or cold intolerance Past Medical History Past Medical History: Cancer, Diabetes Mellitus, Hyperlipidemia, Hypertension, Thyroid Disorder Additional Past Medical History / Comment(s): Pt states she was told 04/18/19 th at she has lymphoma-no treatment plan yet, recent hands/legs/feet edema, 2009 R breast cancer with lumpectomy and radiation treatments, NIDDM type II, hypothyroid, diverticular disease History of Any Multi-Drug Resistant Organisms: None Reported Past Surgical History: Breast Surgery, Section, Hysterectomy Additional Past Surgical History / Comment(s): 04/12/19 R supraclavicular lymph node core biopsy, right breast lumpectomy, colonoscopy Past Anesthesia/Blood Transfusion Reactions: No Reported Reaction Past Psychological History: No Psychological Hx Reported Smoking Status: Never smoker Past Alcohol Use History: Rare Additional Past Alcohol Use History / Comment(s): Pt resides with her spouse. She is independent. She states lately though, she has not been driving, her spouse has been doing the driving. Past Drug Use History: None Reported - Past Family History Father Family Medical History: Myocardial Infarction (RI) Additional Family Medical History / Comment(s): RI times 2-first RI at the age of 35yrs and from 2nd RI at the age of age 52 Mother Family Medical History: Cancer Additional Family Medical History / Comment(s): Mother of pancreatic cancer in her 70s. Brother(s) History Unknown: Yes Sister(s) Family Medical History: Cancer Additional Family Medical History / Comment(s): Patient has 2 sisters one of them with breast cancer. Daughter(s) Family Medical History: No Reported History Additional Family Medical History / Comment(s): Patient has one daughter who is an ICU nurse no major medical problems. Son(s) Family Medical History: No Reported History Additional Family Medical History / Comment(s): Patient has one son no major medical problems. Medications and Allergies Home Medications Medication Instructions Recorded Confirmed Type Levothyroxine Sodium [Levoxyl] 50 mcg PO DAILY 04/03/19 05/24/19 History Ibuprofen [Motrin] 800 mg PO TID PRN 04/19/19 05/24/19 History Venlafaxine HCl [Effexor] 75 mg PO HS 04/19/19 05/24/19 History Loratadine [Claritin] 10 mg PO DAILY 05/03/19 05/24/19 History Furosemide [Lasix] 40 mg PO BID #60 tablet 05/12/19 05/24/19 Rx Melatonin 6 mg PO HS PRN tablet 05/12/19 05/24/19 Rx Nystatin 100,000 Unit/ml Susp 5 ml PO 5XD #45 cup 05/12/19 05/24/19 Rx [Mycostatin Oral Susp] Spironolactone [Aldactone] 25 mg PO DAILY #30 tab 05/12/19 05/24/19 Rx metFORMIN HCL 1,000 mg PO BID #60 tab 05/12/19 05/24/19 Rx sitaGLIPtin PHOSPHATE [Januvia] 50 mg PO DAILY #30 tab 05/12/19 05/24/19 Rx Lidocaine Viscous [Xylocaine 30 ml PO 5XD #45 dose 05/13/19 05/24/19 Rx Viscous 2%] Fexofenadine/Pseudoephedrine 1 tab PO BID PRN 05/24/19 05/24/19 History [Marimar-D 12 Hour Tablet] Lidocaine-Prilocaine Cream [Emla 1 applic TOPICAL DAILY PRN 05/24/19 05/24/19 History Cream 2.5%/2.5%] predniSONE 100 mg PO DIRECTED 05/24/19 05/24/19 History Allergies Allergy/AdvReac Type Severity Reaction Status Date / Time Penicillins Allergy Unknown Rash/Hives Verified 05/24/19 11:15 Physical Exam Vitals: Vital Signs Temp Pulse Pulse Resp BP BP Pulse Ox 05/24/19 17:50 77/44 05/24/19 17:45 79/40 05/24/19 17:40 71/41 05/24/19 17:35 72/35 05/24/19 17:30 98.5 F 131 H 25 H 61/29 70/33 94 L 05/24/19 17:17 98.5 F 134 H 24 75/35 05/24/19 17:00 126 H 21 66/35 94 L 05/24/19 16:30 122 H 12 68/36 92 L 05/24/19 15:46 95 05/24/19 15:30 129 H 13 73/32 93 L 05/24/19 14:30 135 H 75/38 95 05/24/19 14:00 135 H 80/32 93 L 05/24/19 13:46 98.9 F 05/24/19 13:30 97.0 F L 134 H 24 94/53 94 L 05/24/19 13:00 128 H 20 89/44 96 05/24/19 12:30 123 H 22 93/45 96 05/24/19 12:08 98.5 F 93/45 05/24/19 12:00 125 H 23 90/52 98 05/24/19 11:54 90/52 05/24/19 11:30 128 H 17 88/40 96 05/24/19 10:30 134 H 20 120/50 97 05/24/19 10:25 141 H 05/24/19 09:53 99.6 F 144 H 18 121/52 93 L Intake and Output 05/24/19 05/24/19 05/24/19 06:59 14:59 22:59 Intake Total 1816.956 Output Total 95 Balance 1721.956 Intake: IV 1800 Immune Globulin ( 300 Gammagard) 30 gm In Empty Bag 1 bag @ Per Protocol IV .Q0M NR Rx#:[id number] Immune Globulin ( 50 Gammagard) 5 gm In Empty Bag 1 bag @ Titrate IV . Q0M NR Rx#:[id number] Sodium Chloride 0.9% 1, 450 000 ml @ 150 mls/hr IV . Q6H40M [facility] Rx#:[id number] Sodium Chloride 0.9% 1, 1000 000 ml @ 999 mls/hr IV . Q1H1M [facility] Rx#:[id number] Intake, IV Titration 16.956 Amount Norepinephrine 8 mg In 16.956 Sodium Chloride 0.9% 250 ml @ 0.05 MCG/KG/MIN 9. 216 mls/hr IV .Q24H [facility] Rx#:[id number] Blood Product 0 Rc Pheresis Irrad As 3 0 Unit [id number] Output: Urine 95 Other: Weight 95.254 kg General appearance: Revealed a 68-year-old female, looks frail, weak, in no distress. Head exam: Atraumatic, normocephalic. Eye exam: . PERRLA, EOMI, minimal icterus noted. ENT exam: Dry mucous membranes otherwise unremarkable. Neck exam: Positive right posterior cervical lymphadenopathy noted. Respiratory exam: Symmetrical chest expansion, diminished breath sounds at the bases no crackles or rhonchi or wheezes. Cardiovascular Exam: Tachycardic, Normal S1 and S2, no S3 gallop, no murmur. GI/Abdominal exam: Soft nontender no megaly no rebound no guarding. Positive ascites. Extremities exam: 2+ bipedal edema, good pulses bilaterally. Neurological exam: Alert oriented 3, no gross focal deficits. Psychiatric exam: Normal mood blunt affect normal mental status examination Skin exam: No clubbing 2+ bipedal edema or cyanosis. Results - Laboratory Findings CBC and BMP: 05/24/19 10:23 05/24/19 10:23 PT/INR, D-dimer PT 15.5 sec (9.0-12.0) H 05/24/19 10:23 INR 1.6 (<1.2) H 05/24/19 10:23 Abnormal lab findings: Abnormal Labs 05/24/19 05/24/19 05/24/19 10:23 10:23 10:23 WBC 0.1 L* RBC 2.01 L Hgb 6.2 L* D Hct 18.8 L* RDW 20.4 H Plt Count 15 L* D PT INR APTT VBG pCO2 VBG HCO3 Sodium 136 L Carbon Dioxide 17 L BUN 65 H Creatinine 1.79 H Glucose 164 H POC Glucose (mg/dL) Plasma Lactic Acid Carloz 11.6 H* Uric Acid 7.8 H Calcium 8.3 L Magnesium 1.5 L Total Bilirubin 4.3 H Conjugated Bilirubin Unconjugated Bilirubin Delta Bilirubin ALT 36 H Lactate Dehydrogenase 280 L Troponin I Total Protein 4.0 L Albumin 2.1 L Crossmatch 05/24/19 05/24/19 05/24/19 10:23 10:23 10:23 WBC RBC Hgb Hct RDW Plt Count PT 15.5 H INR 1.6 H APTT 32.4 H VBG pCO2 34 L VBG HCO3 18 L Sodium Carbon Dioxide BUN Creatinine Glucose POC Glucose (mg/dL) Plasma Lactic Acid Carloz Uric Acid Calcium Magnesium Total Bilirubin Conjugated Bilirubin Unconjugated Bilirubin Delta Bilirubin ALT Lactate Dehydrogenase Troponin I 0.058 H* Total Protein Albumin Crossmatch 05/24/19 05/24/19 05/24/19 10:23 10:23 13:50 WBC RBC Hgb Hct RDW Plt Count PT INR APTT VBG pCO2 VBG HCO3 Sodium Carbon Dioxide BUN Creatinine Glucose POC Glucose (mg/dL) 163 H Plasma Lactic Acid Carloz Uric Acid Calcium Magnesium Total Bilirubin 4.3 H Conjugated Bilirubin 0.6 H Unconjugated Bilirubin 2.1 H Delta Bilirubin 1.6 H ALT Lactate Dehydrogenase Troponin I Total Protein Albumin Crossmatch See Detail 05/24/19 14:58 WBC RBC Hgb Hct RDW Plt Count PT INR APTT VBG pCO2 VBG HCO3 Sodium Carbon Dioxide BUN Creatinine Glucose POC Glucose (mg/dL) Plasma Lactic Acid Carloz 14.2 H* Uric Acid Calcium Magnesium Total Bilirubin Conjugated Bilirubin Unconjugated Bilirubin Delta Bilirubin ALT Lactate Dehydrogenase Troponin I Total Protein Albumin Crossmatch - Diagnostic Findings Chest x-ray: image reviewed (As noted in HPI.) Additional studies: Ultrasound of the abdomen showed small to moderate abdominal ascites Assessment and Plan Assessment: Impression: Septic shock, neutropenic sepsis with lactic acidosis, hypotension requiring pressors, and acute kidney injury. Pancytopenia secondary to chemotherapy/chemotherapy-induced Acute kidney injury T-cell lymphoma History of hemolytic anemia Type 2 diabetes History of hypertension Hypothyroidism History of tumor lysis syndrome Recurrent ascites and hepatocellular liver disease with jaundice Recommendation: Close monitoring in the ICU. Patient is critically ill. Continue antibiotics in the form of vancomycin and cefepime Continue IV fluids Continue pressors including norepinephrine and vasopressin if needed. Resume some of her home meds. Transfuse with blood/radiated packed RBCs, consider even platelets transfusion Infectious disease and oncology to evaluate. GI prophylaxis. And DVT prophylaxis. However no heparin, no anticoagulation products. Discussed her condition with family at bedside. We'll continue to follow Time with Patient: Greater than 30
[2019-05-24 19:23] LABS: Glucose,Whole Blood 116 mg/dL (75-99)
[2019-05-24] MEDS: INSULIN ASPART (NovoLOG) 100 UNIT/ML VIAL SQ SCH (21:30)
[2019-05-24] MEDS: DEXAMETHASONE SOD PHOSPHATE 4 MG/ML 1 ML VIAL IV SCH (21:40)
[2019-05-24] MEDS: VENLAFAXINE HCL 75 MG TAB PO SCH (21:47)
[2019-05-24] MEDS ORDERED: SODIUM BICARB 8.4% 50 ML SYR (1 MEQ/ML) IV STA (22:16)
[2019-05-25 00:31] LABS: Amorphous Sediment,Urine Rare /hpf; Appearance,Urine Cloudy (Clear); Bilirubin,Urine Negative (Negative); Blood,Urine Negative (Negative); Color,Urine Dark Brown; Glucose,Urine (UA) Negative (Negative); Hyaline Casts,Urine 9 /lpf (0-2); Ketones,Urine Negative (Negative); Leukocyte Esterase,Urine Negative (Negative); Mucus,Urine Rare /hpf; Nitrite,Urine Negative (Negative); Protein,Urine Trace (Negative); RBC,Urine <1 /hpf (0-5); Specific Gravity,Urine 1.017 (1.001-1.035); Squamous Epithelial Cell,Urine 1 /hpf (0-4); WBC,Urine 1 /hpf (0-5)
[2019-05-25] MEDS: SODIUM CHLORIDE 0.9% 50 ML with VASOPRESSIN 20 UNIT IVPB SCH ×4 (00:40→19:05)
[2019-05-25 01:08] LABS: Glucose,Whole Blood 97 mg/dL (75-99)
[2019-05-25] MEDS: INSULIN ASPART (NovoLOG) 100 UNIT/ML VIAL SQ SCH ×4 (01:10→19:10)
[2019-05-25] MEDS: DEXAMETHASONE SOD PHOSPHATE 4 MG/ML 1 ML VIAL IV SCH ×2 (03:30→08:44)
[2019-05-25] MEDS: SODIUM CHLORIDE 0.9% 1,000 ML IV SCH ×3 (04:35→16:33)
[2019-05-25] MEDS: NOREPINEPHRINE 8 MG in SODIUM CHLORIDE 0.9% 250 ML IV SCH ×5 (04:38→20:18)
[2019-05-25 05:21] LABS: Anisocytosis Moderate; Hypochromasia Slight; MCHC 32.7 g/dL (31.0-37.0); MCV 94.8 fL (80.0-100.0); Macrocytosis Slight; Mean Platelet Volume 11.1; RBC 1.91 m/uL (3.80-5.40); RDW 20.4 % (11.5-15.5)
[2019-05-25 05:22] LABS: HCT 18.1 % (34.0-46.0); HGB 5.9 gm/dL (11.4-16.0); WBC 0.1 k/uL (3.8-10.6)
[2019-05-25 05:44] LABS: Albumin 2.1 g/dL (3.5-5.0); Calcium 7.3 mg/dL (8.4-10.2); Magnesium 1.8 mg/dL (1.6-2.3); Phosphorus 5.3 mg/dL (2.5-4.5); Potassium 5.1 mmol/L (3.5-5.1); Total Bilirubin 5.9 mg/dL (0.2-1.3); Total Protein 4.8 g/dL (6.3-8.2)
[2019-05-25 06:10] LABS: Glucose,Whole Blood 97 mg/dL (75-99)
[2019-05-25 07:22] LABS: Platelet Count 3 k/uL (150-450)
--- NOTE | 2019-05-25 07:54 | XR ---
EXAMINATION TYPE: XR chest 1V portable DATE OF EXAM: 05/25/2019 COMPARISON: 05/24/2019 HISTORY: Shortness of breath FINDINGS: There are bilateral pleural effusions with cardiomegaly and bibasilar infiltrate. There is a diffuse interstitial pattern. Right-sided Mediport seen. No sizable pneumothorax. IMPRESSION: 1. Stable pleural-parenchymal changes correlate for CHF versus pneumonia.
[2019-05-25] MEDS: LEVOTHYROXINE IVP 100 MCG/5 ML VIAL IV SCH (08:45)
[2019-05-25] MEDS: PANTOPRAZOLE 40 MG/10 ML VIAL IV SCH (08:47)
[2019-05-25] MEDS ORDERED: DEXTROSE 5% IN WATER 1,000 ML with SODIUM BICARB (1 MEQ/ML) 150 ML IV ONE (10:39)
[2019-05-25] MEDS ORDERED: FUROSEMIDE 10 MG/ML 10 ML VIAL IV STA (10:55)
--- NOTE | 2019-05-25 11:41 | US ---
EXAMINATION TYPE: US kidneys/renal and bladder DATE OF EXAM: 05/25/2019 COMPARISON: NONE CLINICAL HISTORY: hydronephrosis. ICU Patient. Patient unable to move. Bladder catheter. EXAM MEASUREMENTS: Right Kidney: 12.9 x 4.5 x 5.9 cm Left Kidney: 14.1 x 5.2 x 5.9 cm Extremely limited exam due to patient position and body habitus Right Kidney: Inferior pole obscured by bowel gas. Limited visualization. No nephrolithiasis or hyd ronephrosis seen. Left Kidney: Limited visualization. No nephrolithiasis or hydronephrosis seen. Bladder: nonvisualized due to catheter Small amount of free fluid in the abdomen. IMPRESSION: Markedly Limited exam demonstrates no definite hydronephrosis.
[2019-05-25 11:52] LABS: Glucose,Whole Blood 114 mg/dL (75-99)
[2019-05-25] MEDS ORDERED: VANCOMYCIN 1,500 MG in SODIUM CHLORIDE 0.9% 250 ML IVPB ONE (12:00)
[2019-05-25] MEDS ORDERED: ALBUMIN HUMAN 25% 50 ML in EMPTY BAG 1 BAG IVPB SCH (12:30)
[2019-05-25] MEDS: DEXAMETHASONE SOD PHOSPHATE IV SCH ×2 (13:15)
[2019-05-25] MEDS: DEXTROSE 5% IV SCH ×2 (13:15)
[2019-05-25] MEDS: WATER IV SCH ×2 (13:15)
--- NOTE | 2019-05-25 13:31 | P.CONS ---
<Verito Veloz - Last Filed: 05/25/19 13:17> History of Present Illness - Reason for Consult Consult date: 05/25/19 Bacteremia - History of Present Illness This is a 68-year-old female patient Dr. Gaffney with a previous medical history for hypertension and hypertensive cardiovascular disease, hyperlipidemia, new diagnosis of diabetes mellitus type 2, history of breast cancer status post right lumpectomy with radiation therapy, diverticulosis, hypothyroidism, agioimmunoblastic T-cell lymphoma CD30 under the care of Dr. Gonzalez, history of tumor lysis syndrome. Patient's had a recent hospitalization at the end of April which time she presented with jaundice following her first cycle of chemotherapy. Patient was admitted into the intensive care unit for neutropenic sepsis and lactic acidosis, severe pancytopenia. Patient was discharged home with VNA. Patient subsequently underwent additional chemotherapy and had followed up with Dr. Gonzalez and had lab work done in the office and hemoglobin on Wednesday was 7.6. Patient's states he thought she was doing well after the last chemotherapy treatments. Wednesday she did have some complaints of abdominal pain which they thought was related to the fish that she ate. Last evening she got to the bathroom several times and her breathing seemed to be labored. Patient did not have any vomiting. Patient had weakness all over her body was unable to get out of bed They were due today to see Felisa in [place] for consultation. Patient has experienced some edema to the abdomen: The legs that is better than last admission. No rashes. Patient's face is flushed. No specific jaundice is noted on this admission. Patient denies having any cough. Temperature maximum was 100.0. Patient presented to [facility] emergency center for evaluation found to have a WBC count of 0.1, hemoglobin 6.2 and platelet count 15, lactic acid 11.6, BUN 65, creatinine 1.79, total bilirubin 4.3, AST 24, ALT 36, alkaline phosphatase 59, LDH 280, troponin 0.058. Total bilirubin 4.3, conj ugated bilirubin 0.6, unconjugated bilirubin 2.1, delta bilirubin 1.6. TSH 1.190. blood pressure 89/44, heart rate 128, pulse ox 96%. Chest x-ray reveals persistent low lung volumes. Persistent cardiomegaly and central vascular congestion and left lateral basal acute atelectasis and or infiltrate. No significant change from recent chest x-ray. CAT scan of the brain showed no acute intracranial hemorrhage or midline shift. Mild diffuse age-related cerebral atrophy and chronic small vessel ischemic change. Oncology has ordered dexamethasone, immunoglobulin. Patient was given 1 dose of cefepime and vancomycin. Status post vitamin K. She has been admitted into the intensive care unit. She is currently on norepinephrine and vasopressin as well as IV fluids. Patient continues to be is very lethargic and weak. She denies having any pain. Patient has generalized anasarca. Repeat blood work this morning reveals WBC of 0.1, hemoglobin 5.9 and platelet count of 3, BUN 72 and creat inine 2.22. Liver enzymes are mildly elevated, total bilirubin 5.9. Patient is status post 2 units of packed RBCs and 1 unit of platelets. Blood culture is positive for Klebsiella oxytoca. Patient is currently on cefepime and vancomycin. There are multiple consultants in her case including oncology, stone cutter, nephrology. Review of Systems Constitutional: Reports fatigue, Reports lethargy, Reports malaise, Reports poor appetite, Reports weakness Eyes: denies blurred vision, denies pain Ears, nose, mouth and throat: Denies headache, Denies nasal congestion, Denies nasal discharge, Denies sore throat, Denies vertigo Cardiovascular: Reports edema, Reports leg edema, Reports shortness of breath, Denies chest pain, Denies decreased exercise tolerance, Denies dyspnea on exertion, Denies syncope Respiratory: Denies cough, Denies cough with sputum, Denies excessive sputum, Denies hemoptysis, Denies respiratory infections Gastrointestinal: Reports loss of appetite, Denies abdominal pain, Denies diarrhea, Denies nausea, Denies vomiting Genitourinary: Denies dysuria, Denies urgency, Denies urinary frequency Musculoskeletal: Reports muscle weakness, Denies myalgias Integumentary: Denies pruritus, Denies rash, Denies wounds Neurological: Reports weakness, Denies numbness Psychiatric: Denies anxiety, Denies depression Endocrine: Reports fatigue, Denies weight change Past Medical History Past Medical History: Cancer, Diabetes Mellitus, Hyperlipidemia, Hypertension, Thyroid Disorder Additional Past Medical History / Comment(s): Pt states she was told 04/18/19 that she has lymphoma-no treatment plan yet, recent hands/legs/feet edema, 2010 R breast cancer with lumpectomy and radiation treatments, NIDDM type II, hypothyroid, diverticular disease History of Any Multi-Drug Resistant Organisms: None Reported Past Surgical History: Breast Surgery, Section, Hysterectomy Additional Past Surgical History / Comment(s): 04/12/19 R supraclavicular lymph node core biopsy, right breast lumpectomy, colonoscopy Past Anesthesia/Blood Transfusion Reactions: No Reported Reaction Past Psychological History: No Psychological Hx Reported Smoking Status: Never smoker Past Alcohol Use History: Rare Additional Past Alcohol Use History / Comment(s): Pt resides with her spouse. She is independent. She states lately though, she has not been driving, her spouse has been doing the driving. Past Drug Use History: None Reported - Past Family History Father Family Medical History: Myocardial Infarction (AR) Additional Family Medical History / Comment(s): AR times 2-first AR at the age of 35yrs and from 2nd AR at the age of age 52 Mother Family Medical History: Cancer Additional Family Medical History / Comment(s): Mother of pancreatic cancer in her 70s. Brother(s) History Unknown: Yes Sister(s) Family Medical History: Cancer Additional Family Medical History / Comment(s): Patient has 2 sisters one of them with breast cancer. Daughter(s) Family Medical History: No Reported History Additional Family Medical History / Comment(s): Patient has one daughter who is an ICU nurse no major medical problems. Son(s) Family Medical History: No Reported History Additional Family Medical History / Comment(s): Patient has one son no major medical problems. Medications and Allergies Home Medications Medication Instructions Recorded Confirmed Type Levothyroxine Sodium [Levoxyl] 50 mcg PO DAILY 04/03/19 05/24/19 History Ibuprofen [Motrin] 800 mg PO TID PRN 04/19/19 05/24/19 History Venlafaxine HCl [Effexor] 75 mg PO HS 04/19/19 05/24/19 History Loratadine [Claritin] 10 mg PO DAILY 05/03/19 05/24/19 History Furosemide [Lasix] 40 mg PO BID #60 tablet 05/12/19 05/24/19 Rx Melatonin 6 mg PO HS PRN tablet 05/12/19 05/24/19 Rx Nystatin 100,000 Unit/ml Susp 5 ml PO 5XD #45 cup 05/12/19 05/24/19 Rx [Mycostatin Oral Susp] Spironolactone [Aldactone] 25 mg PO DAILY #30 tab 05/12/19 05/24/19 Rx metFORMIN HCL 1,000 mg PO BID #60 tab 05/12/19 05/24/19 Rx sitaGLIPtin PHOSPHATE [Januvia] 50 mg PO DAILY #30 tab 05/12/19 05/24/19 Rx Lidocaine Viscous [Xylocaine 30 ml PO 5XD #45 dose 05/13/19 05/24/19 Rx Viscous 2%] Fexofenadine/Pseudoephedrine 1 tab PO BID PRN 05/24/19 05/24/19 History [Marimar-D 12 Hour Tablet] Lidocaine-Prilocaine Cream [Emla 1 applic TOPICAL DAILY PRN 05/24/19 05/24/19 History Cream 2.5%/2.5%] predniSONE 100 mg PO DIRECTED 05/24/19 05/24/19 History Allergies Allergy/AdvReac Type Severity Reaction Status Date / Time Penicillins Allergy Unknown Rash/Hives Verified 05/24/19 11:15 Physical Exam Vitals: Vital Signs Temp Pulse Resp BP BP Pulse Ox 05/25/19 11:33 98.8 F 116 H 19 108/64 95 05/25/19 10:30 98.8 F 116 H 22 110/64 94 L 05/25/19 10:20 98.8 F 118 H 16 94/54 92 L 05/25/19 10:07 98.8 F 118 H 25 H 110/46 91 L 05/25/19 10:05 98.8 F 118 H 25 H 110/46 91 L 05/25/19 09:35 98.8 F 118 H 25 H 106/48 91 L 05/25/19 09:25 98.8 F 117 H 25 H 99/53 05/25/19 09:00 121 H 25 H 92/60 93 L 05/25/19 08:45 122 H 26 H 112/52 93 L 05/25/19 08:30 123 H 25 H 101/54 92 L 05/25/19 08:15 120 H 21 105/53 93 L 05/25/19 08:00 97.3 F L 118 H 23 101/48 92 L 05/25/19 07:54 92 L 05/25/19 07:45 123 H 26 H 104/55 93 L 05/25/19 07:30 123 H 27 H 102/53 91 L 05/25/19 07:15 123 H 26 H 103/50 92 L 05/25/19 07:00 123 H 24 105/54 91 L 05/25/19 06:30 123 H 26 H 89/49 91 L 05/25/19 06:00 122 H 26 H 98/55 92 L 05/25/19 05:30 122 H 25 H 97/48 93 L 05/25/19 05:00 123 H 24 96/48 92 L 05/25/19 04:30 124 H 26 H 97/46 92 L 05/25/19 04:00 99.3 F 123 H 25 H 81/53 92 L 05/25/19 03:30 124 H 24 94/55 91 L 05/25/19 03:00 120 H 22 98/52 93 L 05/25/19 02:30 123 H 26 H 95/49 91 L 05/25/19 02:00 121 H 20 94/53 92 L 05/25/19 01:30 124 H 26 H 93/48 92 L 05/25/19 01:00 123 H 22 105/48 91 L 05/25/19 00:30 122 H 24 93/47 91 L 05/25/19 00:00 99.0 F 125 H 26 H 84/32 90 L 05/24/19 23:30 121 H 24 84/39 89 L 05/24/19 23:00 123 H 24 84/42 90 L 05/24/19 22:30 123 H 22 87/42 90 L 05/24/19 22:15 123 H 24 90/49 91 L 05/24/19 22:00 122 H 28 H 94/38 91 L 05/24/19 21:45 122 H 24 93/36 92 L 05/24/19 21:30 122 H 26 H 96/41 93 L 05/24/19 21:15 125 H 27 H 89/41 95 05/24/19 21:00 131 H 29 H 89/42 93 L 05/24/19 20:45 129 H 26 H 95/44 92 L 05/24/19 20:30 124 H 27 H 156/126 93 L 05/24/19 20:15 123 H 29 H 108/47 95 05/24/19 20:00 37.4 F L 123 H 28 H 93/47 95 05/24/19 19:45 124 H 30 H 105/52 94 L 05/24/19 19:30 124 H 28 H 100/57 94 L 05/24/19 19:15 129 H 26 H 83/61 93 L 05/24/19 19:00 133 H 24 89/46 93 L 05/24/19 18:45 125 H 9 L 100/47 91 L 05/24/19 18:30 98.4 F 123 H 26 H 89/46 92 L 05/24/19 18:15 122 H 27 H 77/44 92 L 05/24/19 18:00 122 H 24 82/50 94 L 05/24/19 17:57 98.6 F 25 L 122 H 77/44 05/24/19 17:50 77/44 05/24/19 17:45 79/40 05/24/19 17:40 71/41 05/24/19 17:35 72/35 05/24/19 17:30 98.5 F 131 H 25 H 61/29 70/33 94 L 05/24/19 17:27 98.5 F 131 H 24 79/40 94 L 05/24/19 17:17 98.5 F 134 H 24 75/35 05/24/19 17:00 126 H 21 66/35 94 L 05/24/19 16:30 122 H 12 68/36 92 L 05/24/19 15:46 95 05/24/19 15:30 129 H 13 73/32 93 L 05/24/19 14:30 135 H 75/38 95 05/24/19 14:00 135 H 80/32 93 L 05/24/19 13:46 98.9 F 05/24/19 13:30 97.0 F L 134 H 24 94/53 94 L 05/24/19 13:00 128 H 20 89/44 96 05/24/19 12:30 123 H 22 93/45 96 Intake and Output 05/24/19 05/25/19 05/25/19 22:59 06:59 14:59 Intake Total 2815.435 5968.540 3458.8 Output Total 125 30 20 Balance 2690.435 8986.461 2208.8 Intake: IV 2573.0 1236.8 463.8 Immune Globulin ( 300 Gammagard) 30 gm In Empty Bag 1 bag @ Per Protocol IV .Q0M NR Rx#:[id number] Immune Globulin ( 50 Gammagard) 5 gm In Empty Bag 1 bag @ Titrate IV . Q0M NR Rx#:[id number] Sodium Chloride 0.9% 1, 1200 1200 450 000 ml @ 150 mls/hr IV . Q6H40M ADITI Rx#:[id number] Sodium Chloride 0.9% 1, 1000 000 ml @ 999 mls/hr IV . Q1H1M ONE Rx#:[id number] Sodium Chloride 0.9% 50 23.0 36.8 13.8 ml @ 0.03 UNITS/MIN 4.59 mls/hr IVPB .Q11H7M ADITI with Vasopressin 20 unit Rx#:[id number] Intake, IV Titration 242.435 258.000 258 Amount Norepinephrine 8 mg In 242.435 258.000 258 Sodium Chloride 0.9% 250 ml @ 0.05 MCG/KG/MIN 9. 216 mls/hr IV .Q24H ADITI Rx#:[id number] Blood Product 0 925 Platelet Irr Pheresis 305 Acda1 Unit [id number] Rc Pheres Irrad As 3 310 Unit [id number] Rc Pheresis Irrad As 3 0 310 Unit [id number] Output: Urine 125 30 20 Other: Voiding Method Indwelling Catheter Indwelling Catheter Weight 103 kg General appearance: average body habitus, no distress, lethargic, weak - EENT Eyes: anicteric sclerae, EOMI, PERRLA, no ptosis, scleral icterus, normal appearance ENT: hearing grossly normal, NA/AT, normal oropharynx, no thrush Ears: bilateral: normal - Neck Neck: lymphadenopathy Thyroid: bilateral: enlarged - Respiratory Respiratory: bilateral: diminished, negative: dullness, rales, rhonchi, wheezing, prolonged expiration - Cardiovascular Rhythm: regular Heart sounds: normal: S1, S2 Abnormal Heart Sounds: systolic murmur, no S3 Gallop, no S4 Gallop - Gastrointestinal General gastrointestinal: hepatomegaly, soft, splenomegaly, no tenderness, no umbilical hernia, no ventral hernia Bess catheter in place - Integumentary Integumentary: No petechiae, , no rashes, pale - Neurologic Neurologic: CNII-XII intact - Musculoskeletal Musculoskeletal: gait normal, generalized weakness - Psychiatric Psychiatric: A&O x to person and place, generalized weakness, no focal neural deficits. Results CBC & Chem 7: 05/25/19 04:58 05/25/19 04:58 Labs: Abnormal Lab Results - Last 24 Hours (Table) 05/24/19 05/24/19 05/24/19 Range/Units 10:23 13:50 13:53 WBC (3.8-10.6) k/uL RBC (3.80-5.40) m/uL Hgb (11.4-16.0) gm/dL Hct (34.0-46.0) % RDW (11.5-15.5) % Plt Count (150-450) k/uL Chloride (98-107) mmol/L Carbon Dioxide (22-30) mmol/L BUN (7-17) mg/dL Creatinine (0.52-1.04) mg/dL POC Glucose (mg/dL) 163 H (75-99) mg/dL Plasma Lactic Acid Carloz (0.7-2.0) mmol/L Uric Acid (3.7-7.4) mg/dL Calcium (8.4-10.2) mg/dL Phosphorus (2.5-4.5) mg/dL Total Bilirubin (0.2-1.3) mg/dL AST (14-36) U/L ALT (4-34) U/L Total Protein (6.3-8.2) g/dL Albumin (3.5-5.0) g/dL Procalcitonin 26.93 H (0.02-0.09) ng/mL Urine Appearance (Clear) Urine Protein (Negative) Amorphous Sediment (None) /hpf Hyaline Casts (0-2) /lpf Urine Mucus (None) /hpf Crossmatch See Detail 05/24/19 05/24/19 05/24/19 Range/Units 14:56 14:58 19:03 WBC (3.8-10.6) k/uL RBC (3.80-5.40) m/uL Hgb (11.4-16.0) gm/dL Hct (34.0-46.0) % RDW (11.5-15.5) % Plt Count (150-450) k/uL Chloride (98-107) mmol/L Carbon Dioxide (22-30) mmol/L BUN (7-17) mg/dL Creatinine (0.52-1.04) mg/dL POC Glucose (mg/dL) (75-99) mg/dL Plasma Lactic Acid Carloz 14.2 H* 13.0 H* (0.7-2.0) mmol/L Uric Acid (3.7-7.4) mg/dL Calcium (8.4-10.2) mg/dL Phosphorus (2.5-4.5) mg/dL Total Bilirubin (0.2-1.3) mg/dL AST (14-36) U/L ALT (4-34) U/L Total Protein (6.3-8.2) g/dL Albumin (3.5-5.0) g/dL Procalcitonin (0.02-0.09) ng/mL Urine Appearance Cloudy H (Clear) Urine Protein Trace H (Negative) Amorphous Sediment Rare H (None) /hpf Hyaline Casts 9 H (0-2) /lpf Urine Mucus Rare H (None) /hpf Crossmatch 05/24/19 05/24/19 05/25/19 Range/Units 19:22 23:58 04:58 WBC (3.8-10.6) k/uL RBC (3.80-5.40) m/uL Hgb (11.4-16.0) gm/dL Hct (34.0-46.0) % RDW (11.5-15.5) % Plt Count (150-450) k/uL Chloride (98-107) mmol/L Carbon Dioxide (22-30) mmol/L BUN (7-17) mg/dL Creatinine (0.52-1.04) mg/dL POC Glucose (mg/dL) 116 H (75-99) mg/dL Plasma Lactic Acid Carloz 10.0 H* 7.9 H* (0.7-2.0) mmol/L Uric Acid (3.7-7.4) mg/dL Calcium (8.4-10.2) mg/dL Phosphorus (2.5-4.5) mg/dL Total Bilirubin (0.2-1.3) mg/dL AST (14-36) U/L ALT (4-34) U/L Total Protein (6.3-8.2) g/dL Albumin (3.5-5.0) g/dL Procalcitonin (0.02-0.09) ng/mL Urine Appearance (Clear) Urine Protein (Negative) Amorphous Sediment (None) /hpf Hyaline Casts (0-2) /lpf Urine Mucus (None) /hpf Crossmatch 05/25/19 05/25/19 05/25/19 Range/Units 04:58 04:58 04:58 WBC 0.1 L* (3.8-10.6) k/uL RBC 1.91 L (3.80-5.40) m/uL Hgb 5.9 L* (11.4-16.0) gm/dL Hct 18.1 L* (34.0-46.0) % RDW 20.4 H (11.5-15.5) % Plt Count 3 L* D (150-450) k/uL Chloride 109 H (98-107) mmol/L Carbon Dioxide 16 L (22-30) mmol/L BUN 72 H (7-17) mg/dL Creatinine 2.22 H (0.52-1.04) mg/dL POC Glucose (mg/dL) (75-99) mg/dL Plasma Lactic Acid Carloz (0.7-2.0) mmol/L Uric Acid 8.3 H (3.7-7.4) mg/dL Calcium 7.3 L (8.4-10.2) mg/dL Phosphorus 5.3 H (2.5-4.5) mg/dL Total Bilirubin 5.9 H (0.2-1.3) mg/dL AST 99 H (14-36) U/L ALT 49 H (4-34) U/L Total Protein 4.8 L (6.3-8.2) g/dL Albumin 2.1 L (3.5-5.0) g/dL Procalcitonin (0.02-0.09) ng/mL Urine Appearance (Clear) Urine Protein (Negative) Amorphous Sediment (None) /hpf Hyaline Casts (0-2) /lpf Urine Mucus (None) /hpf Crossmatch 05/25/19 Range/Units 11:51 WBC (3.8-10.6) k/uL RBC (3.80-5.40) m/uL Hgb (11.4-16.0) gm/dL Hct (34.0-46.0) % RDW (11.5-15.5) % Plt Count (150-450) k/uL Chloride (98-107) mmol/L Carbon Dioxide (22-30) mmol/L BUN (7-17) mg/dL Creatinine (0.52-1.04) mg/dL POC Glucose (mg/dL) 114 H (75-99) mg/dL Plasma Lactic Acid Carloz (0.7-2.0) mmol/L Uric Acid (3.7-7.4) mg/dL Calcium (8.4-10.2) mg/dL Phosphorus (2.5-4.5) mg/dL Total Bilirubin (0.2-1.3) mg/dL AST (14-36) U/L ALT (4-34) U/L Total Protein (6.3-8.2) g/dL Albumin (3.5-5.0) g/dL Procalcitonin (0.02-0.09) ng/mL Urine Appearance (Clear) Urine Protein (Negative) Amorphous Sediment (None) /hpf Hyaline Casts (0-2) /lpf Urine Mucus (None) /hpf Crossmatch Microbiology - Last 24 Hours (Table) 05/24/19 11:45 Blood Culture Gram Stain - Preliminary Blood 05/24/19 11:45 Blood Culture - Final Blood Assessment and Plan Plan: This is a 68-year-old female presented to the hospital with septic shock, neutropenic sepsis and lactic acidosis, acute kidney injury, pancytopenia secondary to chemotherapy and T-cell lymphoma. Patient was subsequent found to have gram-negative bacteremia with Klebsiella oxytoca. Patient is currently on cefepime and vancomycin. Repeat blood culture will be obtained. Continue supportive care. Further recommendations as patient progresses. The above dictated assessment and findings were discussed with Dr. Corral. The impression and plan of care have been directed as dictated. Verito Veloz nurse practitioner acting as scribe for Dr. Corral. <Tressa Corral - Last Filed: 05/25/19 23:15> Physical Exam Vitals: Vital Signs Temp Pulse Resp BP Pulse Ox 05/25/19 22:00 114 H 27 H 117/60 93 L 05/25/19 21:30 112 H 28 H 126/46 94 L 05/25/19 21:00 115 H 26 H 129/73 93 L 05/25/19 20:30 115 H 18 124/90 92 L 05/25/19 20:00 98.1 F 112 H 23 126/61 92 L 05/25/19 19:30 116 H 15 123/68 92 L 05/25/19 19:00 114 H 28 H 122/67 92 L 05/25/19 18:45 112 H 30 H 113/49 93 L 05/25/19 18:30 113 H 29 H 93 L 05/25/19 18:15 113 H 39 H 125/36 93 L 05/25/19 18:00 115 H 29 H 124/58 93 L 05/25/19 17:45 113 H 32 H 129/55 92 L 05/25/19 17:30 113 H 29 H 115/70 94 L 05/25/19 17:15 113 H 36 H 115/62 94 L 05/25/19 17:00 114 H 31 H 106/59 94 L 05/25/19 16:45 113 H 24 100/56 94 L 05/25/19 16:30 120 H 32 H 111/50 92 L 05/25/19 16:15 117 H 30 H 100/65 92 L 05/25/19 16:00 97.7 F 118 H 30 H 117/65 92 L 05/25/19 15:45 117 H 30 H 114/66 92 L 05/25/19 15:30 116 H 29 H 102/58 92 L 05/25/19 15:15 115 H 26 H 106/56 93 L 05/25/19 15:00 117 H 24 109/53 92 L 05/25/19 14:45 116 H 29 H 112/52 93 L 05/25/19 14:30 115 H 29 H 110/60 92 L 05/25/19 14:15 115 H 27 H 101/48 93 L 05/25/19 14:00 116 H 28 H 95/42 93 L 05/25/19 13:45 117 H 33 H 100/49 93 L 05/25/19 13:30 117 H 28 H 110/62 92 L 05/25/19 13:15 115 H 27 H 112/53 93 L 05/25/19 13:00 117 H 24 119/55 92 L 05/25/19 12:45 120 H 29 H 107/60 92 L 05/25/19 12:30 116 H 25 H 102/54 93 L 05/25/19 12:15 98.8 F 115 H 25 H 100/64 92 L 05/25/19 12:01 115 H 35 H 118/58 93 L 05/25/19 11:45 117 H 32 H 113/49 93 L 05/25/19 11:33 98.8 F 116 H 19 108/64 95 05/25/19 11:30 116 H 33 H 109/46 93 L 05/25/19 11:15 115 H 31 H 112/56 94 L 05/25/19 11:00 116 H 33 H 108/53 93 L 05/25/19 10:45 115 H 26 H 106/53 93 L 05/25/19 10:30 98.8 F 117 H 23 94/54 92 L 05/25/19 10:20 98.8 F 118 H 16 94/54 92 L 05/25/19 10:15 116 H 26 H 103/55 92 L 05/25/19 10:07 98.8 F 118 H 25 H 110/46 91 L 05/25/19 10:05 98.8 F 118 H 25 H 110/46 91 L 05/25/19 10:00 120 H 25 H 104/53 91 L 05/25/19 09:45 118 H 25 H 106/48 91 L 05/25/19 09:35 98.8 F 118 H 25 H 106/48 91 L 05/25/19 09:30 120 H 26 H 99/53 93 L 05/25/19 09:25 98.8 F 117 H 25 H 99/53 05/25/19 09:15 121 H 25 H 107/54 92 L 05/25/19 09:00 121 H 25 H 92/60 93 L 05/25/19 08:45 122 H 26 H 112/52 93 L 05/25/19 08:30 123 H 25 H 101/54 92 L 05/25/19 08:15 120 H 21 105/53 93 L 05/25/19 08:00 97.3 F L 118 H 23 101/48 92 L 05/25/19 07:54 92 L 05/25/19 07:45 123 H 26 H 104/55 93 L 05/25/19 07:30 123 H 27 H 102/53 91 L 05/25/19 07:15 123 H 26 H 103/50 92 L 05/25/19 07:00 123 H 24 105/54 91 L 05/25/19 06:30 123 H 26 H 89/49 91 L 05/25/19 06:00 122 H 26 H 98/55 92 L 05/25/19 05:30 122 H 25 H 97/48 93 L 05/25/19 05:00 123 H 24 96/48 92 L 05/25/19 04:30 124 H 26 H 97/46 92 L 05/25/19 04:00 99.3 F 123 H 25 H 81/53 92 L 05/25/19 03:30 124 H 24 94/55 91 L 05/25/19 03:00 120 H 22 98/52 93 L 05/25/19 02:30 123 H 26 H 95/49 91 L 05/25/19 02:00 121 H 20 94/53 92 L 05/25/19 01:30 124 H 26 H 93/48 92 L 05/25/19 01:00 123 H 22 105/48 91 L 05/25/19 00:30 122 H 24 93/47 91 L 05/25/19 00:00 99.0 F 125 H 26 H 84/32 90 L 05/24/19 23:30 121 H 24 84/39 89 L Intake and Output 05/25/19 05/25/19 05/26/19 14:59 22:59 06:59 Intake Total 2677.8 2242.565 Output Total 80 370 Balance 2597.8 1872.565 Intake: IV 1236.8 1811.8 Albumin Human 25% 50 ml 100 In Empty Bag 1 bag @ 50 mls/hr IVPB Q12H ADITI Rx#: [id number] Cefepime 2 gm In Sodium 100 Chloride 0.9% 100 ml @ 200 mls/hr IVPB Q24H ADITI Rx#:[id number] Dexamethasone Sod 50 Phosphate 40 mg In Dextrose 5% in Water 50 ml @ 100 mls/hr IV DAILY ADITI Rx#:[id number] Dextrose 5% in Water 1, 375 675 000 ml @ 75 mls/hr IV . [id number] ONE with Sodium Bicarb (1 Meq/ml) 150 ml Rx#:[id number] Sodium Chloride 0.9% 1, 825 600 000 ml @ 75 mls/hr IV . [id number] ADITI Rx#:[id number] Sodium Chloride 0.9% 50 36.8 36.8 ml @ 0.03 UNITS/MIN 4.59 mls/hr IVPB .Q11H7M ADITI with Vasopressin 20 unit Rx#:[id number] Vancomycin 1,500 mg In 250 Sodium Chloride 0.9% 250 ml @ 125 mls/hr IVPB ONCE ONE Rx#:[id number] Intake, IV Titration 516 430.765 Amount Norepinephrine 8 mg In 516 430.765 Sodium Chloride 0.9% 250 ml @ 0.05 MCG/KG/MIN 9. 216 mls/hr IV .Q24H ADITI Rx#:[id number] Blood Product 925 Platelet Irr Pheresis 305 Acda1 Unit [id number] Rc Pheres Irrad As 3 310 Unit [id number] Rc Pheresis Irrad As 3 310 Unit [id number] Output: Urine 80 370 Other: Voiding Method Indwelling Catheter Indwelling Catheter Results CBC & Chem 7: 05/25/19 13:23 05/25/19 04:58 Labs: Abnormal Lab Results - Last 24 Hours (Table) 05/24/19 05/24/19 05/24/19 Range/Units 10:23 14:56 23:58 WBC (3.8-10.6) k/uL RBC (3.80-5.40) m/uL Hgb (11.4-16.0) gm/dL Hct (34.0-46.0) % RDW (11.5-15.5) % Plt Count (150-450) k/uL Chloride (98-107) mmol/L Carbon Dioxide (22-30) mmol/L BUN (7-17) mg/dL Creatinine (0.52-1.04) mg/dL POC Glucose (mg/dL) (75-99) mg/dL Plasma Lactic Acid Carloz 10.0 H* (0.7-2.0) mmol/L Uric Acid (3.7-7.4) mg/dL Calcium (8.4-10.2) mg/dL Phosphorus (2.5-4.5) mg/dL Total Bilirubin (0.2-1.3) mg/dL AST (14-36) U/L ALT (4-34) U/L Total Protein (6.3-8.2) g/dL Albumin (3.5-5.0) g/dL Urine Appearance Cloudy H (Clear) Urine Protein Trace H (Negative) Amorphous Sediment Rare H (None) /hpf Hyaline Casts 9 H (0-2) /lpf Urine Mucus Rare H (None) /hpf Crossmatch See Detail 05/25/19 05/25/19 05/25/19 Range/Units 04:58 04:58 04:58 WBC 0.1 L* (3.8-10.6) k/uL RBC 1.91 L (3.80-5.40) m/uL Hgb 5.9 L* (11.4-16.0) gm/dL Hct 18.1 L* (34.0-46.0) % RDW 20.4 H (11.5-15.5) % Plt Count 3 L* D (150-450) k/uL Chloride 109 H (98-107) mmol/L Carbon Dioxide 16 L (22-30) mmol/L BUN 72 H (7-17) mg/dL Creatinine 2.22 H (0.52-1.04) mg/dL POC Glucose (mg/dL) (75-99) mg/dL Plasma Lactic Acid Carloz 7.9 H* (0.7-2.0) mmol/L Uric Acid (3.7-7.4) mg/dL Calcium 7.3 L (8.4-10.2) mg/dL Phosphorus 5.3 H (2.5-4.5) mg/dL Total Bilirubin 5.9 H (0.2-1.3) mg/dL AST 99 H (14-36) U/L ALT 49 H (4-34) U/L Total Protein 4.8 L (6.3-8.2) g/dL Albumin 2.1 L (3.5-5.0) g/dL Urine Appearance (Clear) Urine Protein (Negative) Amorphous Sediment (None) /hpf Hyaline Casts (0-2) /lpf Urine Mucus (None) /hpf Crossmatch 05/25/19 05/25/19 05/25/19 Range/Units 04:58 11:51 13:23 WBC (3.8-10.6) k/uL RBC (3.80-5.40) m/uL Hgb (11.4-16.0) gm/dL Hct (34.0-46.0) % RDW (11.5-15.5) % Plt Count (150-450) k/uL Chloride (98-107) mmol/L Carbon Dioxide (22-30) mmol/L BUN (7-17) mg/dL Creatinine (0.52-1.04) mg/dL POC Glucose (mg/dL) 114 H (75-99) mg/dL Plasma Lactic Acid Carloz 4.9 H* (0.7-2.0) mmol/L Uric Acid 8.3 H (3.7-7.4) mg/dL Calcium (8.4-10.2) mg/dL Phosphorus (2.5-4.5) mg/dL Total Bilirubin (0.2-1.3) mg/dL AST (14-36) U/L ALT (4-34) U/L Total Protein (6.3-8.2) g/dL Albumin (3.5-5.0) g/dL Urine Appearance (Clear) Urine Protein (Negative) Amorphous Sediment (None) /hpf Hyaline Casts (0-2) /lpf Urine Mucus (None) /hpf Crossmatch 05/25/19 05/25/19 05/25/19 Range/Units 13:23 17:18 19:08 WBC 0.1 L* (3.8-10.6) k/uL RBC 2.09 L (3.80-5.40) m/uL Hgb 6.5 L* (11.4-16.0) gm/dL Hct 20.0 L (34.0-46.0) % RDW 19.5 H (11.5-15.5) % Plt Count 13 L* D (150-450) k/uL Chloride (98-107) mmol/L Carbon Dioxide (22-30) mmol/L BUN (7-17) mg/dL Creatinine (0.52-1.04) mg/dL POC Glucose (mg/dL) 196 H (75-99) mg/dL Plasma Lactic Acid Carloz 4.4 H* (0.7-2.0) mmol/L Uric Acid (3.7-7.4) mg/dL Calcium (8.4-10.2) mg/dL Phosphorus (2.5-4.5) mg/dL Total Bilirubin (0.2-1.3) mg/dL AST (14-36) U/L ALT (4-34) U/L Total Protein (6.3-8.2) g/dL Albumin (3.5-5.0) g/dL Urine Appearance (Clear) Urine Protein (Negative) Amorphous Sediment (None) /hpf Hyaline Casts (0-2) /lpf Urine Mucus (None) /hpf Crossmatch 05/25/19 Range/Units 21:23 WBC (3.8-10.6) k/uL RBC (3.80-5.40) m/uL Hgb (11.4-16.0) gm/dL Hct (34.0-46.0) % RDW (11.5-15.5) % Plt Count (150-450) k/uL Chloride (98-107) mmol/L Carbon Dioxide (22-30) mmol/L BUN (7-17) mg/dL Creatinine (0.52-1.04) mg/dL POC Glucose (mg/dL) (75-99) mg/dL Plasma Lactic Acid Carloz 3.9 H* (0.7-2.0) mmol/L Uric Acid (3.7-7.4) mg/dL Calcium (8.4-10.2) mg/dL Phosphorus (2.5-4.5) mg/dL Total Bilirubin (0.2-1.3) mg/dL AST (14-36) U/L ALT (4-34) U/L Total Protein (6.3-8.2) g/dL Albumin (3.5-5.0) g/dL Urine Appearance (Clear) Urine Protein (Negative) Amorphous Sediment (None) /hpf Hyaline Casts (0-2) /lpf Urine Mucus (None) /hpf Crossmatch Microbiology - Last 24 Hours (Table) 05/24/19 11:45 Blood Culture Gram Stain - Preliminary Blood Blood Culture - Preliminary Klebsiella oxytoca 05/24/19 11:45 Blood Culture - Final Blood Assessment and Plan Plan: Patient was seen and examined personally and nurse practitioner note was reviewed and agree with the findings Assessment and Plan: 1-patient with Klebsiella bacteremia in this patient who did have neutropenic sepsis , this patient with a history of breast cancer status post chemo, with evidence of neutropenia, source of the bacteremia is likely abdominal less likely Mediport siteinfection. 2-patient did have a borderline kidney function and high risk of nephrotoxicity with no evidence of gram-positive infection 3-discontinue vancomycin 4-cefepime 2 g every 24 dose has been adjusted the kidney function 5-IV fluids We will follow on clinical condition and cultures to further adjust medication if needed Thank you for this consultation we will follow the patient along with you at the bedside questions were answered Time with Patient: Greater than 30
--- NOTE | 2019-05-25 13:31 | P.PN ---
Subjective Progress Note Date: 05/25/19 Principal diagnosis: Septic shock, gram-negative bacteremia, neutropenic sepsis This is a 68-year-old female familiar to my service from her last admission. Patient is known to have history of angioimmunoblastic T-cell lymphoma, receiving chemotherapy by oncology/Dr. Gonzalez. Patient was recently admitted to the hospital with chemotherapy induced pancytopenia and neutropenic fever and sepsis. She was in the hospital for almost 2 weeks. And she was eventually discharged home and advised to follow up with oncology. Since discharge, the patient received again chemotherapy, and her last chemotherapy was last Wednesday. Since Wednesday the patient has been complaining of abdominal pain, weakness, loose stools, and noted her breathing was a bit labored. Patient felt generally weak, unable to get out of bed. She was supposed to see her oncologist today, however considering her multiple constitutional symptoms, patient decided to come to the ER. Patient was felt to have WBC count of 0.1 hemoglobin 6.2 platelets 15 lactic acid 11.6 creatinine 1.79 total bilirubin of 4.3 LDH 280. And she was noted to be hypotensive requiring fluid boluses, and after 3 L of fluids, tamire nt was placed on norepinephrine to be titrated accordingly and possibly will add vasopressin if needed. Chest x-ray showed no evidence of pneumonia. It did show evidence of cardiomegaly and mild left basilar atelectasis. Patient was given broad-spectrum antibiotics by the ER physician including vancomycin and cefepime. And she was admitted to the ICU with the impression of sepsis and septic shock. I evaluated the patient in the ICU, recommended more fluids to be given, reviewed her antibiotics. And I recommended pressors starting with norepinephrine, and to add vasopressin if needed. Patient was on 2 L nasal cannula, O2 saturation was 94%. Blood pressure was 77/44 with a mean of 55. Respiration 25, and heart rate was 125 Reevaluated today on 05/25/2019, patient remains in the intensive care unit, patient is requiring norepinephrine for marginal blood pressure. She is also on vasopressin at 0.03 units per minutes. Being titrated to a mean of 65. Her blood cultures came back positive for gram-negative rods. Final report is pending. Renal functioning seems to be worsening, and she was seen by nephrology on consultation. Her IV fluids was adjusted, and placed on sodium b icarb drip. IV fluid at present is 0.9 normal saline at 75 mL per hour. Her pulmonary status is marginal, however the patient is not clinically ready for intubation and mechanical ventilation. That will likely happen, but at this point she seems to be holding fairly well. Chest x-ray showed pleural parenchymal changes, and mild interstitial edema bilaterally. Patient is still receiving diuretics. Nephrology on the case. Labs were reviewed, continues to have pancytopenia that instead of 0.1 hemoglobin is 5.9 platelets are 3000. Patient is to receive blood and platelets, and she is to be seen by oncology/hematology on the case. Antibiotics campbell, patient remains on vancomycin and cefepime, and she is yet to be seen by infectious disease on consultation. Ultrasound of the abdomen showed mild ascites, not significant enough to consider paracentesis, and her renal ultrasound showed no evidence of hydronephrosis. BUN today is 72 creatinine is 2.2 to Objective - Vital Signs Vital signs: Vital Signs Temp 98.8 F 05/25/19 11:33 Pulse 116 H 05/25/19 11:33 Resp 19 05/25/19 11:33 BP 108/64 05/25/19 11:33 Pulse Ox 95 05/25/19 11:33 Intake & Output 05/24/19 05/25/19 05/25/19 18:59 06:59 18:59 Intake Total 0810.310 9820.679 1904.8 Output Total 100 55 20 Balance 8705.984 5650.679 1884.8 Weight 95.254 kg 103 kg Intake: IV 1954.6 1855.2 463.8 Immune Globulin ( 300 Gammagard) 30 gm In Empty Bag 1 bag @ Per Protocol IV .Q0M NR Rx#:[id number] Immune Globulin ( 50 Gammagard) 5 gm In Empty Bag 1 bag @ Titrate IV . Q0M NR Rx#:[id number] Sodium Chloride 0.9% 1, 600 1800 450 000 ml @ 150 mls/hr IV . Q6H40M ADITI Rx#:[id number] Sodium Chloride 0.9% 1, 1000 000 ml @ 999 mls/hr IV . Q1H1M ONE Rx#:[id number] Sodium Chloride 0.9% 50 4.6 55.2 13.8 ml @ 0.03 UNITS/MIN 4.59 mls/hr IVPB .Q11H7M ADITI with Vasopressin 20 unit Rx#:[id number] Intake, IV Titration 16.956 483.479 516 Amount Norepinephrine 8 mg In 16.956 483.479 516 Sodium Chloride 0.9% 250 ml @ 0.05 MCG/KG/MIN 9. 216 mls/hr IV .Q24H ADITI Rx#:[id number] Blood Product 0 925 Platelet Irr Pheresis 305 Acda1 Unit [id number] Rc Pheres Irrad As 3 310 Unit [id number] Rc Pheresis Irrad As 3 0 310 Unit [id number] Output: Urine 100 55 20 Other: Voiding Method Indwelling Catheter Indwelling Catheter - Exam General appearance: Revealed a 68-year-old female, looks frail, weak, slightly tachypneic, but not in distress Head exam: Atraumatic, normocephalic. Eye exam: . PERRLA, EOMI, minimal icterus noted. ENT exam: Dry mucous membranes otherwise unremarkable. Neck exam: Positive right posterior cervical lymphadenopathy noted. Respiratory exam: Symmetrical chest expansion, minimal crackles at the right base, no rhonchi and no wheezes. Cardiovascular Exam: Tachycardic, Normal S1 and S2, no S3 gallop, no murmur. GI/Abdominal exam: Soft nontender no megaly no rebound no guarding. Positive ascites. Extremities exam: 2+ bipedal edema, good pulses bilaterally. Neurological exam: Alert oriented 3, no gross focal deficits. Psychiatric exam: Normal mood blunt affect normal mental status examination Skin exam: No clubbing 2+ bipedal edema no cyanosis. - Labs CBC & Chem 7: 05/25/19 04:58 05/25/19 04:58 Labs: Abnormal Lab Results - Last 24 Hours (Table) 05/24/19 05/24/19 05/24/19 Range/Units 10:23 13:50 13:53 WBC (3.8-10.6) k/uL RBC (3.80-5.40) m/uL Hgb (11.4-16.0) gm/dL Hct (34.0-46.0) % RDW (11.5-15.5) % Plt Count (150-450) k/uL Chloride (98-107) mmol/L Carbon Dioxide (22-30) mmol/L BUN (7-17) mg/dL Creatinine (0.52-1.04) mg/dL POC Glucose (mg/dL) 163 H (75-99) mg/dL Plasma Lactic Acid Carloz (0.7-2.0) mmol/L Uric Acid (3.7-7.4) mg/dL Calcium (8.4-10.2) mg/dL Phosphorus (2.5-4.5) mg/dL Total Bilirubin (0.2-1.3) mg/dL AST (14-36) U/L ALT (4-34) U/L Total Protein (6.3-8.2) g/dL Albumin (3.5-5.0) g/dL Procalcitonin 26.93 H (0.02-0.09) ng/mL Urine Appearance (Clear) Urine Protein (Negative) Amorphous Sediment (None) /hpf Hyaline Casts (0-2) /lpf Urine Mucus (None) /hpf Crossmatch See Detail 05/24/19 05/24/19 05/24/19 Range/Units 14:56 14:58 19:03 WBC (3.8-10.6) k/uL RBC (3.80-5.40) m/uL Hgb (11.4-16.0) gm/dL Hct (34.0-46.0) % RDW (11.5-15.5) % Plt Count (150-450) k/uL Chloride (98-107) mmol/L Carbon Dioxide (22-30) mmol/L BUN (7-17) mg/dL Creatinine (0.52-1.04) mg/dL POC Glucose (mg/dL) (75-99) mg/dL Plasma Lactic Acid Carloz 14.2 H* 13.0 H* (0.7-2.0) mmol/L Uric Acid (3.7-7.4) mg/dL Calcium (8.4-10.2) mg/dL Phosphorus (2.5-4.5) mg/dL Total Bilirubin (0.2-1.3) mg/dL AST (14-36) U/L ALT (4-34) U/L Total Protein (6.3-8.2) g/dL Albumin (3.5-5.0) g/dL Procalcitonin (0.02-0.09) ng/mL Urine Appearance Cloudy H (Clear) Urine Protein Trace H (Negative) Amorphous Sediment Rare H (None) /hpf Hyaline Casts 9 H (0-2) /lpf Urine Mucus Rare H (None) /hpf Crossmatch 05/24/19 05/24/19 05/25/19 Range/Units 19:22 23:58 04:58 WBC (3.8-10.6) k/uL RBC (3.80-5.40) m/uL Hgb (11.4-16.0) gm/dL Hct (34.0-46.0) % RDW (11.5-15.5) % Plt Count (150-450) k/uL Chloride (98-107) mmol/L Carbon Dioxide (22-30) mmol/L BUN (7-17) mg/dL Creatinine (0.52-1.04) mg/dL POC Glucose (mg/dL) 116 H (75-99) mg/dL Plasma Lactic Acid Carloz 10.0 H* 7.9 H* (0.7-2.0) mmol/L Uric Acid (3.7-7.4) mg/dL Calcium (8.4-10.2) mg/dL Phosphorus (2.5-4.5) mg/dL Total Bilirubin (0.2-1.3) mg/dL AST (14-36) U/L ALT (4-34) U/L Total Protein (6.3-8.2) g/dL Albumin (3.5-5.0) g/dL Procalcitonin (0.02-0.09) ng/mL Urine Appearance (Clear) Urine Protein (Negative) Amorphous Sediment (None) /hpf Hyaline Casts (0-2) /lpf Urine Mucus (None) /hpf Crossmatch 05/25/19 05/25/19 05/25/19 Range/Units 04:58 04:58 04:58 WBC 0.1 L* (3.8-10.6) k/uL RBC 1.91 L (3.80-5.40) m/uL Hgb 5.9 L* (11.4-16.0) gm/dL Hct 18.1 L* (34.0-46.0) % RDW 20.4 H (11.5-15.5) % Plt Count 3 L* D (150-450) k/uL Chloride 109 H (98-107) mmol/L Carbon Dioxide 16 L (22-30) mmol/L BUN 72 H (7-17) mg/dL Creatinine 2.22 H (0.52-1.04) mg/dL POC Glucose (mg/dL) (75-99) mg/dL Plasma Lactic Acid Carloz (0.7-2.0) mmol/L Uric Acid 8.3 H (3.7-7.4) mg/dL Calcium 7.3 L (8.4-10.2) mg/dL Phosphorus 5.3 H (2.5-4.5) mg/dL Total Bilirubin 5.9 H (0.2-1.3) mg/dL AST 99 H (14-36) U/L ALT 49 H (4-34) U/L Total Protein 4.8 L (6.3-8.2) g/dL Albumin 2.1 L (3.5-5.0) g/dL Procalcitonin (0.02-0.09) ng/mL Urine Appearance (Clear) Urine Protein (Negative) Amorphous Sediment (None) /hpf Hyaline Casts (0-2) /lpf Urine Mucus (None) /hpf Crossmatch 05/25/19 Range/Units 11:51 WBC (3.8-10.6) k/uL RBC (3.80-5.40) m/uL Hgb (11.4-16.0) gm/dL Hct (34.0-46.0) % RDW (11.5-15.5) % Plt Count (150-450) k/uL Chloride (98-107) mmol/L Carbon Dioxide (22-30) mmol/L BUN (7-17) mg/dL Creatinine (0.52-1.04) mg/dL POC Glucose (mg/dL) 114 H (75-99) mg/dL Plasma Lactic Acid Carloz (0.7-2.0) mmol/L Uric Acid (3.7-7.4) mg/dL Calcium (8.4-10.2) mg/dL Phosphorus (2.5-4.5) mg/dL Total Bilirubin (0.2-1.3) mg/dL AST (14-36) U/L ALT (4-34) U/L Total Protein (6.3-8.2) g/dL Albumin (3.5-5.0) g/dL Procalcitonin (0.02-0.09) ng/mL Urine Appearance (Clear) Urine Protein (Negative) Amorphous Sediment (None) /hpf Hyaline Casts (0-2) /lpf Urine Mucus (None) /hpf Crossmatch Microbiology - Last 24 Hours (Table) 05/24/19 11:45 Blood Culture Gram Stain - Preliminary Blood Blood Culture - Preliminary Klebsiella oxytoca 05/24/19 11:45 Blood Culture - Final Blood Assessment and Plan Assessment: Impression: Septic shock, gram-negative bacteremia, neutropenic sepsis with lactic acidosis, hypotension requiring pressors, and acute kidney injury. Pancytopenia secondary to chemotherapy/chemotherapy-induced Acute kidney injury T-cell lymphoma History of hemolytic anemia Type 2 diabetes History of hypertension Hypothyroidism History of tumor lysis syndrome Recurrent ascites and hepatocellular liver disease with jaundice Recommendation: Close monitoring in the ICU. Patient is critically ill. Continue antibiotics in the form of vancomycin and cefepime, antibiotics to be addressed by infectious disease today. Continue IV fluids Continue pressors including norepinephrine and vasopressin, titrate to a mean arterial pressure above 60. Transfuse with blood/radiated packed RBCs, transfuse platelets. And that is to be addressed by hematology on the case. GI prophylaxis. And DVT prophylaxis. However no heparin, no anticoagulation products. Discussed her condition with family at bedside. Not quite ready for intubation, however that is to be considered if her condition gets any worse. And family as well as the patient are aware of this possibility. We'll continue to follow Time with Patient: Less than 30
[2019-05-25 13:40] LABS: Anisocytosis Slight; Hypochromasia Slight; MCHC 32.5 g/dL (31.0-37.0); MCV 95.6 fL (80.0-100.0); Macrocytosis Slight; Mean Platelet Volume 11.1; Poikilocytosis Slight; RBC 2.09 m/uL (3.80-5.40); RDW 19.5 % (11.5-15.5)
[2019-05-25 13:44] LABS: HGB 6.5 gm/dL (11.4-16.0); Platelet Count 13 k/uL (150-450); WBC 0.1 k/uL (3.8-10.6)
--- NOTE | 2019-05-25 13:52 | P.PN ---
Subjective Progress Note Date: 05/25/19 This is a 68-year-old female patient Dr. Gaffney with a previous medical history for hypertension and hypertensive cardiovascular disease, hyperlipidemia, new diagnosis of diabetes mellitus type 2, history of breast cancer status post right lumpectomy with radiation therapy, diverticulosis, hypothyroidism, agioimmunoblastic T-cell lymphoma CD30 under the care of Dr. Gonzalez, history of tumor lysis syndrome. Patient's had a recent hospitalization at the end of April which time she presented with jaundice following her first cycle of chemotherapy. Patient was admitted into the intensive care unit for neutropenic sepsis and lactic acidosis, severe pancytopenia. Patient was discharged home with VNA. Patient subsequently underwent additional chemotherapy and had followed up with Dr. Gonzalez and had lab work done in the office and hemoglobin on Wednesday was 7.6. Patient's states he thought she was doing well after the last chemotherapy treatments. Wednesday she did have some complaints of abdominal pain which they thought was related to the fish that she ate. Last evening she got to the bathroom several times and her breathing seemed to be labored. Patient did not have any vomiting. Patient had weakness all over her body was unable to get out of bed They were due today to see Felisa in [place] for consultation. Patient has experienced some edema to the abdomen: The legs that is better than last admission. No rashes. Patient's face is flushed. No specific jaundice is noted on this admission. Patient denies having any cough. Temperature maximum was 100.0. Patient presented to [facility] emergency center for evaluation found to have a WBC count of 0.1, hemoglobin 6.2 and platelet count 15, lactic acid 11.6, BUN 65, creatinine 1.79, total bilirubin 4.3, AST 24, ALT 36, alkaline phosphatase 59, LDH 280, troponin 0.058. Total bilirubin 4.3, conjugated bilirubin 0.6, unconjugated bilirubin 2.1, delta bilirubin 1.6. TSH 1.190. blood pressure 89/44, heart rate 128, pulse ox 96%. Chest x-ray reveals persistent low lung volumes. Persistent cardiomegaly and central vascular congestion and left lateral basal acute atelectasis and or infiltrate. No significant change from recent chest x-ray. CAT scan of the brain showed no acute intracranial hemorrhage or midline shift. Mild diffuse age-related cerebral atrophy and chronic small vessel ischemic change. Oncology has ordered dexamethasone, immunoglobulin. Patient was given 1 dose of cefepime and vancomycin. Status post vitamin K. She is waiting for an ICU bed. Consults for Dr. Byrd and Dr. Beltran. 05/25: Patient is seen today in the intensive care unit. She is currently on vasopressin and norepinephrine. She is status post total of 2 units of packed RBCs and 1 unit of platelets. Patient has decreased mental status and continue lethargy and weakness. Patient is not been eating. She has generalized anasarca and albumin IV will be ordered. Patient denies having any pain as well as family denies pain. Blood culture positive for gram-negative rods and consult added for Dr. Corral. Patient is currently on cefepime and vancomycin. Urine output has been 0-5 mL per hour. Lab work prior to last unit of packed RBCs and platelet counts revealed WBC 0.1, hemoglobin 5.9, platelet count 3. BUN 72 and creatinine 2.22, lactic acid 7.9, blood sugars 83-114. Uric acid 8.3, calcium 7.3, phosphorus 5.3, magnesium 1.8, total bilirubin 5.9, AST 99, ALT 49, alkaline phosphatase 55, albumin 2.0. Influenza testing was negative, urinalysis dark brown, cloudy. Review of Systems Constitutional: Reports fatigue, Reports lethargy, Reports malaise, Reports poor appetite, Reports weakness Eyes: denies blurred vision, denies pain Ears, nose, mouth and throat: Denies headache, Denies nasal congestion, Denies nasal discharge, Denies sore throat, Denies vertigo Cardiovascular: Reports edema, Reports leg edema, Reports shortness of breath, Denies chest pain, Denies decreased exercise tolerance, Denies dyspnea on exertion, Denies syncope Respiratory: Denies cough, Denies cough with sputum, Denies excessive sputum, Denies hemoptysis, Denies respiratory infections Gastrointestinal: Reports loss of appetite, Denies abdominal pain, Denies diarrhea, Denies nausea, Denies vomiting Genitourinary: Denies dysuria, Denies urgency, Denies urinary frequency Musculoskeletal: Reports muscle weakness, Denies myalgias Integumentary: Denies pruritus, Denies rash, Denies wounds Neurological: Reports weakness, Denies numbness Psychiatric: Denies anxiety, Denies depression Endocrine: Reports fatigue, Denies weight change Objective - Vital Signs Vital signs: Vital Signs Temp 98.8 F 05/25/19 10:20 Pulse 118 H 05/25/19 10:20 Resp 16 05/25/19 10:20 BP 94/54 05/25/19 10:20 Pulse Ox 92 L 05/25/19 10:20 Intake & Output 05/24/19 05/25/19 05/25/19 18:59 06:59 18:59 Intake Total 4128.242 6495.679 1336.8 Output Total 100 55 20 Balance 8113.027 0714.679 1316.8 Weight 95.254 kg 103 kg Intake: IV 1954.6 1855.2 463.8 Immune Globulin ( 300 Gammagard) 30 gm In Empty Bag 1 bag @ Per Protocol IV .Q0M NR Rx#:[id number] Immune Globulin ( 50 Gammagard) 5 gm In Empty Bag 1 bag @ Titrate IV . Q0M NR Rx#:[id number] Sodium Chloride 0.9% 1, 600 1800 450 000 ml @ 150 mls/hr IV . Q6H40M ADITI Rx#:[id number] Sodium Chloride 0.9% 1, 1000 000 ml @ 999 mls/hr IV . Q1H1M ONE Rx#:[id number] Sodium Chloride 0.9% 50 4.6 55.2 13.8 ml @ 0.03 UNITS/MIN 4.59 mls/hr IVPB .Q11H7M ADITI with Vasopressin 20 unit Rx#:[id number] Intake, IV Titration 16.956 483.479 258 Amount Norepinephrine 8 mg In 16.956 483.479 258 Sodium Chloride 0.9% 250 ml @ 0.05 MCG/KG/MIN 9. 216 mls/hr IV .Q24H [facility] Rx#:[id number] Blood Product 0 615 Platelet Irr Pheresis 305 Acda1 Unit [id number] Rc Pheres Irrad As 3 0 Unit [id number] Rc Pheresis Irrad As 3 0 310 Unit [id number] Output: Urine 100 55 20 Other: Voiding Method Indwelling Catheter Indwelling Catheter - Exam General appearance: average body habitus, no distress, patient lethargic, weak - EENT Eyes: anicteric sclerae, EOMI, PERRLA, no ptosis, scleral mild icterus, normal appearance ENT: hearing grossly normal, NA/AT, normal oropharynx, no thrush Ears: bilateral: normal - Neck Neck: lymphadenopathy Thyroid: bilateral: enlarged - Respiratory Respiratory: bilateral: diminished, negative: dullness, rales, rhonchi, wheezing, prolonged expiration - Cardiovascular Rhythm: regular Heart sounds: normal: S1, S2 Abnormal Heart Sounds: systolic murmur, no S3 Gallop, no S4 Gallop - Gastrointestinal General gastrointestinal: hepatomegaly, soft, splenomegaly, no tenderness, no umbilical hernia, no ventral hernia - Integumentary Integumentary: No petechiae, pale Facial flushing - Neurologic Neurologic: CNII-XII intact - Musculoskeletal Musculoskeletal: gait normal, generalized weakness - Psychiatric Psychiatric: A&O x's 2, generalized weakness, no focal neural deficits. - Labs CBC & Chem 7: 05/25/19 13:23 05/25/19 04:58 Labs: Abnormal Lab Results - Last 24 Hours (Table) 05/24/19 05/24/19 05/24/19 Range/Units 10:23 10:23 10:23 WBC 0.1 L* (3.8-10.6) k/uL RBC 2.01 L (3.80-5.40) m/uL Hgb 6.2 L* D (11.4-16.0) gm/dL Hct 18.8 L* (34.0-46.0) % RDW 20.4 H (11.5-15.5) % Plt Count 15 L* D (150-450) k/uL PT (9.0-12.0) sec INR (<1.2) APTT (22.0-30.0) sec VBG pCO2 (37-51) mmHg VBG HCO3 (24-28) mmol/L Sodium 136 L (137-145) mmol/L Chloride (98-107) mmol/L Carbon Dioxide 17 L (22-30) mmol/L BUN 65 H (7-17) mg/dL Creatinine 1.79 H (0.52-1.04) mg/dL Glucose 164 H (74-99) mg/dL POC Glucose (mg/dL) (75-99) mg/dL Plasma Lactic Acid Carloz 11.6 H* (0.7-2.0) mmol/L Uric Acid 7.8 H (3.7-7.4) mg/dL Calcium 8.3 L (8.4-10.2) mg/dL Phosphorus (2.5-4.5) mg/dL Magnesium 1.5 L (1.6-2.3) mg/dL Total Bilirubin 4.3 H (0.2-1.3) mg/dL Conjugated Bilirubin (0.0-0.3) mg/dL Unconjugated Bilirubin (0.0-1.1) mg/dL Delta Bilirubin (0.0-0.2) mg/dL AST (14-36) U/L ALT 36 H (4-34) U/L Lactate Dehydrogenase 280 L (313-618) U/L Troponin I (0.000-0.034) ng/mL Total Protein 4.0 L (6.3-8.2) g/dL Albumin 2.1 L (3.5-5.0) g/dL Procalcitonin (0.02-0.09) ng/mL Urine Appearance (Clear) Urine Protein (Negative) Amorphous Sediment (None) /hpf Hyaline Casts (0-2) /lpf Urine Mucus (None) /hpf Crossmatch 05/24/19 05/24/19 05/24/19 Range/Units 10:23 10:23 10:23 WBC (3.8-10.6) k/uL RBC (3.80-5.40) m/uL Hgb (11.4-16.0) gm/dL Hct (34.0-46.0) % RDW (11.5-15.5) % Plt Count (150-450) k/uL PT 15.5 H (9.0-12.0) sec INR 1.6 H (<1.2) APTT 32.4 H (22.0-30.0) sec VBG pCO2 34 L (37-51) mmHg VBG HCO3 18 L (24-28) mmol/L Sodium (137-145) mmol/L Chloride (98-107) mmol/L Carbon Dioxide (22-30) mmol/L BUN (7-17) mg/dL Creatinine (0.52-1.04) mg/dL Glucose (74-99) mg/dL POC Glucose (mg/dL) (75-99) mg/dL Plasma Lactic Acid Carloz (0.7-2.0) mmol/L Uric Acid (3.7-7.4) mg/dL Calcium (8.4-10.2) mg/dL Phosphorus (2.5-4.5) mg/dL Magnesium (1.6-2.3) mg/dL Total Bilirubin (0.2-1.3) mg/dL Conjugated Bilirubin (0.0-0.3) mg/dL Unconjugated Bilirubin (0.0-1.1) mg/dL Delta Bilirubin (0.0-0.2) mg/dL AST (14-36) U/L ALT (4-34) U/L Lactate Dehydrogenase (313-618) U/L Troponin I 0.058 H* (0.000-0.034) ng/mL Total Protein (6.3-8.2) g/dL Albumin (3.5-5.0) g/dL Procalcitonin (0.02-0.09) ng/mL Urine Appearance (Clear) Urine Protein (Negative) Amorphous Sediment (None) /hpf Hyaline Casts (0-2) /lpf Urine Mucus (None) /hpf Crossmatch 05/24/19 05/24/19 05/24/19 Range/Units 10:23 10:23 13:50 WBC (3.8-10.6) k/uL RBC (3.80-5.40) m/uL Hgb (11.4-16.0) gm/dL Hct (34.0-46.0) % RDW (11.5-15.5) % Plt Count (150-450) k/uL PT (9.0-12.0) sec INR (<1.2) APTT (22.0-30.0) sec VBG pCO2 (37-51) mmHg VBG HCO3 (24-28) mmol/L Sodium (137-145) mmol/L Chloride (98-107) mmol/L Carbon Dioxide (22-30) mmol/L BUN (7-17) mg/dL Creatinine (0.52-1.04) mg/dL Glucose (74-99) mg/dL POC Glucose (mg/dL) 163 H (75-99) mg/dL Plasma Lactic Acid Carloz (0.7-2.0) mmol/L Uric Acid (3.7-7.4) mg/dL Calcium (8.4-10.2) mg/dL Phosphorus (2.5-4.5) mg/dL Magnesium (1.6-2.3) mg/dL Total Bilirubin 4.3 H (0.2-1.3) mg/dL Conjugated Bilirubin 0.6 H (0.0-0.3) mg/dL Unconjugated Bilirubin 2.1 H (0.0-1.1) mg/dL Delta Bilirubin 1.6 H (0.0-0.2) mg/dL AST (14-36) U/L ALT (4-34) U/L Lactate Dehydrogenase (313-618) U/L Troponin I (0.000-0.034) ng/mL Total Protein (6.3-8.2) g/dL Albumin (3.5-5.0) g/dL Procalcitonin (0.02-0.09) ng/mL Urine Appearance (Clear) Urine Protein (Negative) Amorphous Sediment (None) /hpf Hyaline Casts (0-2) /lpf Urine Mucus (None) /hpf Crossmatch See Detail 05/24/19 05/24/19 05/24/19 Range/Units 13:53 14:56 14:58 WBC (3.8-10.6) k/uL RBC (3.80-5.40) m/uL Hgb (11.4-16.0) gm/dL Hct (34.0-46.0) % RDW (11.5-15.5) % Plt Count (150-450) k/uL PT (9.0-12.0) sec INR (<1.2) APTT (22.0-30.0) sec VBG pCO2 (37-51) mmHg VBG HCO3 (24-28) mmol/L Sodium (137-145) mmol/L Chloride (98-107) mmol/L Carbon Dioxide (22-30) mmol/L BUN (7-17) mg/dL Creatinine (0.52-1.04) mg/dL Glucose (74-99) mg/dL POC Glucose (mg/dL) (75-99) mg/dL Plasma Lactic Acid Carloz 14.2 H* (0.7-2.0) mmol/L Uric Acid (3.7-7.4) mg/dL Calcium (8.4-10.2) mg/dL Phosphorus (2.5-4.5) mg/dL Magnesium (1.6-2.3) mg/dL Total Bilirubin (0.2-1.3) mg/dL Conjugated Bilirubin (0.0-0.3) mg/dL Unconjugated Bilirubin (0.0-1.1) mg/dL Delta Bilirubin (0.0-0.2) mg/dL AST (14-36) U/L ALT (4-34) U/L Lactate Dehydrogenase (313-618) U/L Troponin I (0.000-0.034) ng/mL Total Protein (6.3-8.2) g/dL Albumin (3.5-5.0) g/dL Procalcitonin 26.93 H (0.02-0.09) ng/mL Urine Appearance Cloudy H (Clear) Urine Protein Trace H (Negative) Amorphous Sediment Rare H (None) /hpf Hyaline Casts 9 H (0-2) /lpf Urine Mucus Rare H (None) /hpf Crossmatch 05/24/19 05/24/19 05/24/19 Range/Units 19:03 19:22 23:58 WBC (3.8-10.6) k/uL RBC (3.80-5.40) m/uL Hgb (11.4-16.0) gm/dL Hct (34.0-46.0) % RDW (11.5-15.5) % Plt Count (150-450) k/uL PT (9.0-12.0) sec INR (<1.2) APTT (22.0-30.0) sec VBG pCO2 (37-51) mmHg VBG HCO3 (24-28) mmol/L Sodium (137-145) mmol/L Chloride (98-107) mmol/L Carbon Dioxide (22-30) mmol/L BUN (7-17) mg/dL Creatinine (0.52-1.04) mg/dL Glucose (74-99) mg/dL POC Glucose (mg/dL) 116 H (75-99) mg/dL Plasma Lactic Acid Carloz 13.0 H* 10.0 H* (0.7-2.0) mmol/L Uric Acid (3.7-7.4) mg/dL Calcium (8.4-10.2) mg/dL Phosphorus (2.5-4.5) mg/dL Magnesium (1.6-2.3) mg/dL Total Bilirubin (0.2-1.3) mg/dL Conjugated Bilirubin (0.0-0.3) mg/dL Unconjugated Bilirubin (0.0-1.1) mg/dL Delta Bilirubin (0.0-0.2) mg/dL AST (14-36) U/L ALT (4-34) U/L Lactate Dehydrogenase (313-618) U/L Troponin I (0.000-0.034) ng/mL Total Protein (6.3-8.2) g/dL Albumin (3.5-5.0) g/dL Procalcitonin (0.02-0.09) ng/mL Urine Appearance (Clear) Urine Protein (Negative) Amorphous Sediment (None) /hpf Hyaline Casts (0-2) /lpf Urine Mucus (None) /hpf Crossmatch 05/25/19 05/25/19 05/25/19 Range/Units 04:58 04:58 04:58 WBC 0.1 L* (3.8-10.6) k/uL RBC 1.91 L (3.80-5.40) m/uL Hgb 5.9 L* (11.4-16.0) gm/dL Hct 18.1 L* (34.0-46.0) % RDW 20.4 H (11.5-15.5) % Plt Count 3 L* D (150-450) k/uL PT (9.0-12.0) sec INR (<1.2) APTT (22.0-30.0) sec VBG pCO2 (37-51) mmHg VBG HCO3 (24-28) mmol/L Sodium (137-145) mmol/L Chloride 109 H (98-107) mmol/L Carbon Dioxide 16 L (22-30) mmol/L BUN 72 H (7-17) mg/dL Creatinine 2.22 H (0.52-1.04) mg/dL Glucose (74-99) mg/dL POC Glucose (mg/dL) (75-99) mg/dL Plasma Lactic Acid Carloz 7.9 H* (0.7-2.0) mmol/L Uric Acid (3.7-7.4) mg/dL Calcium 7.3 L (8.4-10.2) mg/dL Phosphorus 5.3 H (2.5-4.5) mg/dL Magnesium (1.6-2.3) mg/dL Total Bilirubin 5.9 H (0.2-1.3) mg/dL Conjugated Bilirubin (0.0-0.3) mg/dL Unconjugated Bilirubin (0.0-1.1) mg/dL Delta Bilirubin (0.0-0.2) mg/dL AST 99 H (14-36) U/L ALT 49 H (4-34) U/L Lactate Dehydrogenase (313-618) U/L Troponin I (0.000-0.034) ng/mL Total Protein 4.8 L (6.3-8.2) g/dL Albumin 2.1 L (3.5-5.0) g/dL Procalcitonin (0.02-0.09) ng/mL Urine Appearance (Clear) Urine Protein (Negative) Amorphous Sediment (None) /hpf Hyaline Casts (0-2) /lpf Urine Mucus (None) /hpf Crossmatch Microbiology - Last 24 Hours (Table) 05/24/19 11:45 Blood Culture - Final Blood Assessment and Plan Plan: 1. Neutropenic sepsis with lactic acidosis and septic shock. Patient will be admitted to the intensive care unit, consult with cmm operator and oncology. Patient is status post dexamethasone and gammaglobulin. Cefepime 2 g every 24 hours, vancomycin. Patient requires vasopressors. 2. Pancytopenia secondary to lymphoma and chemotherapy. Status post transfusion of 2 units packed RBCs and 1 unit of platelets. 3. Acute kidney injury. Avoid nephrotoxic agents. Consult with nephrology appreciated. Patient is start bicarb drip. 4. Elevated troponin. 5. T-cell lymphoma CD30 positive, status post chemotherapy. Oncology consult. 6. History of hypertension and hypertensive cardio vascular disease currently hypotensive. 7. Diabetes mellitus type 2. New onset. Discontinue metformin. 8. Hyperlipidemia. Off statin. 9. Hypothyroidism. Continue levothyroxine transitioned to IV 25 g daily. Home dose is 50 g daily. 10. History of tumor lysis syndrome. 11. Diverticulosis. Colonoscopy is up-to-date. 12. Recurrent depression. Currently on Effexor XR 75 mg orally once every day. 13. Hepatocellular disease. Status post vitamin K. 14. Moderate to severe protein malnutrition DVT prophylaxis. Bilateral knee- high THA hose. 15. GI prophylaxis. Start Protonix 40 mg IV push every 24 hours. 16. DVT prophylaxis. No heparin due to thrombocytopenia. 17. Klebsiella bacteremia, present on admission. Consult with Dr. Corral. 18. Infectious and metabolic encephalopathy, present on admission, gradually worsening. Continue close monitoring in the intensive care unit 19. Generalized anasarca and ascites. Albumin 4 doses. Patient is full code. Prognosis: Guarded Discharge plan: Home with VNA, to be determined Impression and plan of care have been directed as dictated by the signing physician. Verito Veloz nurse practitioner acting as scribe for signing physician.
[2019-05-25] MEDS: CEFEPIME 2 GM in SODIUM CHLORIDE 0.9% 100 ML IVPB SCH (14:32)
--- NOTE | 2019-05-25 17:59 | P.CONS ---
History of Present Illness - Reason for Consult Consult date: 05/25/19 SIRS, Pancytopenia, T cell lymphoma on chemo - History of Present Illness Mrs. Galvan is a 68-year-old white female well known to our service. She follows with Dr. Gonzalez in the outpatient setting. 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 She received Neulasta on 05/22/19 The patient came into the hospital with complaints of new onset of diffuse abdominal pain progressive weakness and lethargy, that progressed over hours. She came into the emergency room where she was found to be severely pancytopenic with systolic blood pressure in the 70 range. She was therefore admitted to the hospital, in the ICU, and started on pressors and broad-spectrum antibiotics. She is also receiving blood and platelet transfusions. Consult was placed for further evaluation and recommendations No overt fevers have been noted. No obvious bleeding. There has been no significant change in bowel habits, cough, or new urinary complaints. Oral intake, since 05/23/19 had declined significantly due to loss of appetite. Malignancy history: Mrs. Galvan is a very pleasant 68-year-old female patient of Dr. Gonzalez with a past medical history that includes a T1 cN0 right breast cancer diagnosed in February 2011, treated with lumpectomy, sentinel lymph node biopsy, radiation therapy, AI continued until November 2017. No disease recurrence. Patient noticed enlarging cervical lymph nodes in December 2018. She had a CBC at her PCP Dr. Gaffney's office which showed mild leukopenia, thrombocytopenia which was new. She had no other symptoms. She saw Dr. Gonzalez on 03/29. He examined her and ordered a CT CAP and US guided core biopsy of the right supraclavicular lymph node. CT showed abnormal lymph nodes throughout the abdomen and pelvis, including axilla, intra-abdominal, pelvic and superficial inguinal areas, enlarged submental lymph node, and splenomegaly. Biopsy of the right anterior cervical lymph node on 04/12, path was positive for a CD30 positive atypical lymphoid infiltrate, high proliferation index of 70-80%, the case was forwarded on to [facility] for subtype classification, final path returned angioimmunoblastic T-call lymphoma. She was admitted before she was able to get diagnosis for progressive jaundice and weakness. She was hemolysing, started on pulse dose dex and then received 1st cycle of EPOCH. She was admitted subsequently with severe and cytopenia due to chemotherapy, as well as recurrent hemolysis. She was started again on pulse dose Decadron, and supported with blood product transfusions, with improvement. She was then discharged and received cycle 2, as noted above as an outpatient. Review of Systems Constitutional: Reports fatigue, Reports poor appetite, Reports weakness Eyes: denies blurred vision, denies pain Ears: deny: decreased hearing, ear discharge, earache, tinnitus Ears, nose, mouth and throat: Denies headache, Denies sore throat Cardiovascular: Reports shortness of breath Respiratory: Reports dyspnea Gastrointestinal: Reports as per HPI, Reports abdominal pain, Reports nausea, Reports vomiting Genitourinary: Denies dysuria, Denies hematuria Menstruation: Reports postmenopausal Musculoskeletal: Reports as per HPI (LE edema), Reports muscle weakness Integumentary: Denies pruritus, Denies rash Neurological: Reports change in mentation, Reports weakness Psychiatric: Reports anxiety Endocrine: Reports fatigue Hematologic/Lymphatic: Reports as per HPI Past Medical History Past Medical History: Cancer, Diabetes Mellitus, Hyperlipidemia, Hypertension, Thyroid Disorder Additional Past Medical History / Comment(s): Pt states she was told 04/18/19 that she has lymphoma-no treatment plan yet, recent hands/legs/feet edema, 2009 R breast cancer with lumpectomy and radiation treatments, NIDDM type II, hypothyroid, diverticular disease History of Any Multi-Drug Resistant Organisms: None Reported Past Surgical History: Breast Surgery, Section, Hysterectomy Additional Past Surgical History / Comment(s): 04/12/19 R supraclavicular lymph node core biopsy, right breast lumpectomy, colonoscopy Past Anesthesia/Blood Transfusion Reactions: No Reported Reaction Past Psychological History: No Psychological Hx Reported Smoking Status: Never smoker Past Alcohol Use History: Rare Additional Past Alcohol Use History / Comment(s): Pt resides with her spouse. She is independent. She states lately though, she has not been driving, her spouse has been doing the driving. Past Drug Use History: None Reported - Past Family History Father Family Medical History: Myocardial Infarction (ID) Additional Family Medical History / Comment(s): ID times 2-first ID at the age of 35yrs and from 2nd ID at the age of age 52 Mother Family Medical History: Cancer Additional Family Medical History / Comment(s): Mother of pancreatic cancer in her 70s. Brother(s) History Unknown: Yes Sister(s) Family Medical History: Cancer Additional Family Medical History / Comment(s): Patient has 2 sisters one of them with breast cancer. Daughter(s) Family Medical History: No Reported History Additional Family Medical History / Comment(s): Patient has one daughter who is an ICU nurse no major medical problems. Son(s) Family Medical History: No Reported History Additional Family Medical History / Comment(s): Patient has one son no major medical problems. Medications and Allergies Home Medications Medication Instructions Recorded Confirmed Type Levothyroxine Sodium [Levoxyl] 50 mcg PO DAILY 04/03/19 05/24/19 History Ibuprofen [Motrin] 800 mg PO TID PRN 04/19/19 05/24/19 History Venlafaxine HCl [Effexor] 75 mg PO HS 04/19/19 05/24/19 History Loratadine [Claritin] 10 mg PO DAILY 05/03/19 05/24/19 History Furosemide [Lasix] 40 mg PO BID #60 tablet 05/12/19 05/24/19 Rx Melatonin 6 mg PO HS PRN tablet 05/12/19 05/24/19 Rx Nystatin 100,000 Unit/ml Susp 5 ml PO 5XD #45 cup 05/12/19 05/24/19 Rx [Mycostatin Oral Susp] Spironolactone [Aldactone] 25 mg PO DAILY #30 tab 05/12/19 05/24/19 Rx metFORMIN HCL 1,000 mg PO BID #60 tab 05/12/19 05/24/19 Rx sitaGLIPtin PHOSPHATE [Januvia] 50 mg PO DAILY #30 tab 05/12/19 05/24/19 Rx Lidocaine Viscous [Xylocaine 30 ml PO 5XD #45 dose 05/13/19 05/24/19 Rx Viscous 2%] Fexofenadine/Pseudoephedrine 1 tab PO BID PRN 05/24/19 05/24/19 History [Marimar-D 12 Hour Tablet] Lidocaine-Prilocaine Cream [Emla 1 applic TOPICAL DAILY PRN 05/24/19 05/24/19 Hi story Cream 2.5%/2.5%] predniSONE 100 mg PO DIRECTED 05/24/19 05/24/19 History Allergies Allergy/AdvReac Type Severity Reaction Status Date / Time Penicillins Allergy Unknown Rash/Hives Verified 05/24/19 11:15 Physical Exam Vitals: Vital Signs Temp Pulse Resp BP BP Pulse Ox 05/25/19 11:33 98.8 F 116 H 19 108/64 95 05/25/19 10:30 98.8 F 116 H 22 110/64 94 L 05/25/19 10:20 98.8 F 118 H 16 94/54 92 L 05/25/19 10:07 98.8 F 118 H 25 H 110/46 91 L 05/25/19 10:05 98.8 F 118 H 25 H 110/46 91 L 05/25/19 09:35 98.8 F 118 H 25 H 106/48 91 L 05/25/19 09:25 98.8 F 117 H 25 H 99/53 05/25/19 09:00 121 H 25 H 92/60 93 L 05/25/19 08:45 122 H 26 H 112/52 93 L 05/25/19 08:30 123 H 25 H 101/54 92 L 05/25/19 08:15 120 H 21 105/53 93 L 05/25/19 08:00 97.3 F L 118 H 23 101/48 92 L 05/25/19 07:54 92 L 05/25/19 07:45 123 H 26 H 104/55 93 L 05/25/19 07:30 123 H 27 H 102/53 91 L 05/25/19 07:15 123 H 26 H 103/50 92 L 05/25/19 07:00 123 H 24 105/54 91 L 05/25/19 06:30 123 H 26 H 89/49 91 L 05/25/19 06:00 122 H 26 H 98/55 92 L 05/25/19 05:30 122 H 25 H 97/48 93 L 05/25/19 05:00 123 H 24 96/48 92 L 05/25/19 04:30 124 H 26 H 97/46 92 L 05/25/19 04:00 99.3 F 123 H 25 H 81/53 92 L 05/25/19 03:30 124 H 24 94/55 91 L 05/25/19 03:00 120 H 22 98/52 93 L 05/25/19 02:30 123 H 26 H 95/49 91 L 05/25/19 02:00 121 H 20 94/53 92 L 05/25/19 01:30 124 H 26 H 93/48 92 L 05/25/19 01:00 123 H 22 105/48 91 L 05/25/19 00:30 122 H 24 93/47 91 L 05/25/19 00:00 99.0 F 125 H 26 H 84/32 90 L 05/24/19 23:30 121 H 24 84/39 89 L 05/24/19 23:00 123 H 24 84/42 90 L 05/24/19 22:30 123 H 22 87/42 90 L 05/24/19 22:15 123 H 24 90/49 91 L 05/24/19 22:00 122 H 28 H 94/38 91 L 05/24/19 21:45 122 H 24 93/36 92 L 05/24/19 21:30 122 H 26 H 96/41 93 L 05/24/19 21:15 125 H 27 H 89/41 95 05/24/19 21:00 131 H 29 H 89/42 93 L 05/24/19 20:45 129 H 26 H 95/44 92 L 05/24/19 20:30 124 H 27 H 156/126 93 L 05/24/19 20:15 123 H 29 H 108/47 95 05/24/19 20:00 37.4 F L 123 H 28 H 93/47 95 05/24/19 19:45 124 H 30 H 105/52 94 L 05/24/19 19:30 124 H 28 H 100/57 94 L 05/24/19 19:15 129 H 26 H 83/61 93 L 05/24/19 19:00 133 H 24 89/46 93 L 05/24/19 18:45 125 H 9 L 100/47 91 L 05/24/19 18:30 98.4 F 123 H 26 H 89/46 92 L 05/24/19 18:15 122 H 27 H 77/44 92 L 05/24/19 18:00 122 H 24 82/50 94 L 05/24/19 17:57 98.6 F 25 L 122 H 77/44 05/24/19 17:50 77/44 01/15/20 17:45 79/40 05/24/19 17:40 71/41 05/24/19 17:35 72/35 05/24/19 17:30 98.5 F 131 H 25 H 61/29 70/33 94 L 05/24/19 17:27 98.5 F 131 H 24 79/40 94 L 05/24/19 17:17 98.5 F 134 H 24 75/35 05/24/19 17:00 126 H 21 66/35 94 L 05/24/19 16:30 122 H 12 68/36 92 L 05/24/19 15:46 95 05/24/19 15:30 129 H 13 73/32 93 L 05/24/19 14:30 135 H 75/38 95 05/24/19 14:00 135 H 80/32 93 L 05/24/19 13:46 98.9 F 05/24/19 13:30 97.0 F L 134 H 24 94/53 94 L Intake and Output 05/24/19 05/25/19 05/25/19 22:59 06:59 14:59 Intake Total 2815.435 3182.899 6689.8 Output Total 125 30 20 Balance 2690.435 1593.553 4807.8 Intake: IV 2573.0 1236.8 463.8 Immune Globulin ( 300 Gammagard) 30 gm In Empty Bag 1 bag @ Per Protocol IV .Q0M NR Rx#:[id number] Immune Globulin ( 50 Gammagard) 5 gm In Empty Bag 1 bag @ Titrate IV . Q0M NR Rx#:[id number] Sodium Chloride 0.9% 1, 1200 1200 450 000 ml @ 150 mls/hr IV . Q6H40M ADITI Rx#:[id number] Sodium Chloride 0.9% 1, 1000 000 ml @ 999 mls/hr IV . Q1H1M ONE Rx#:[id number] Sodium Chloride 0.9% 50 23.0 36.8 13.8 ml @ 0.03 UNITS/MIN 4.59 mls/hr IVPB .Q11H7M ADITI with Vasopressin 20 unit Rx#:[id number] Intake, IV Titration 242.435 258.000 516 Amount Norepinephrine 8 mg In 242.435 258.000 516 Sodium Chloride 0.9% 250 ml @ 0.05 MCG/KG/MIN 9. 216 mls/hr IV .Q24H [facility] Rx#:[id number] Blood Product 0 925 Platelet Irr Pheresis 305 Acda1 Unit [id number] Rc Pheres Irrad As 3 310 Unit [id number] Rc Pheresis Irrad As 3 0 310 Unit [id number] Output: Urine 125 30 20 Other: Voiding Method Indwelling Catheter Indwelling Catheter Weight 103 kg - Constitutional Lethargic, shortness of breath at rest, mild distress due to abdominal pain per patient General appearance: mild distress - EENT Eyes: EOMI, PERRLA, scleral icterus ENT: hearing grossly normal, normal oropharynx - Respiratory Respiratory: bilateral: diminished - Cardiovascular Rhythm: regular Heart sounds: normal: S1, S2 - Gastrointestinal ascites by exam General gastrointestinal: distended, normal bowel sounds - Integumentary Integumentary: normal - Neurologic Neurologic: CNII-XII intact - Musculoskeletal Musculoskeletal: generalized weakness, strength equal bilaterally - Psychiatric Psychiatric: A&O x's 3 Results CBC & Chem 7: 05/25/19 13:23 05/25/19 04:58 Labs: Abnormal Lab Results - Last 24 Hours (Table) 05/24/19 05/24/19 05/24/19 Range/Units 10:23 13:50 13:53 WBC (3.8-10.6) k/uL RBC (3.80-5.40) m/uL Hgb (11.4-16.0) gm/dL Hct (34.0-46.0) % RDW (11.5-15.5) % Plt Count (150-450) k/uL Chloride (98-107) mmol/L Carbon Dioxide (22-30) mmol/L BUN (7-17) mg/dL Creatinine (0.52-1.04) mg/dL POC Glucose (mg/dL) 163 H (75-99) mg/dL Plasma Lactic Acid Calroz (0.7-2.0) mmol/L Uric Acid (3.7-7.4) mg/dL Calcium (8.4-10.2) mg/dL Phosphorus (2.5-4.5) mg/dL Total Bilirubin (0.2-1.3) mg/dL AST (14-36) U/L ALT (4-34) U/L Total Protein (6.3-8.2) g/dL Albumin (3.5-5.0) g/dL Procalcitonin 26.93 H (0.02-0.09) ng/mL Urine Appearance (Clear) Urine Protein (Negative) Amorphous Sediment (None) /hpf Hyaline Casts (0-2) /lpf Urine Mucus (None) /hpf Crossmatch See Detail 05/24/19 05/24/19 05/24/19 Range/Units 14:56 14:58 19:03 WBC (3.8-10.6) k/uL RBC (3.80-5.40) m/uL Hgb (11.4-16.0) gm/dL Hct (34.0-46.0) % RDW (11.5-15.5) % Plt Count (150-450) k/uL Chloride (98-107) mmol/L Carbon Dioxide (22-30) mmol/L BUN (7-17) mg/dL Creatinine (0.52-1.04) mg/dL POC Glucose (mg/dL) (75-99) mg/dL Plasma Lactic Acid Carloz 14.2 H* 13.0 H* (0.7-2.0) mmol/L Uric Acid (3.7-7.4) mg/dL Calcium (8.4-10.2) mg/dL Phosphorus (2.5-4.5) mg/dL Total Bilirubin (0.2-1.3) mg/dL AST (14-36) U/L ALT (4-34) U/L Total Protein (6.3-8.2) g/dL Albumin (3.5-5.0) g/dL Procalcitonin (0.02-0.09) ng/mL Urine Appearance Cloudy H (Clear) Urine Protein Trace H (Negative) Amorphous Sediment Rare H (None) /hpf Hyaline Casts 9 H (0-2) /lpf Urine Mucus Rare H (None) /hpf Crossmatch 05/24/19 05/24/19 05/25/19 Range/Units 19:22 23:58 04:58 WBC (3.8-10.6) k/uL RBC (3.80-5.40) m/uL Hgb (11.4-16.0) gm/dL Hct (34.0-46.0) % RDW (11.5-15.5) % Plt Count (150-450) k/uL Chloride (98-107) mmol/L Carbon Dioxide (22-30) mmol/L BUN (7-17) mg/dL Creatinine (0.52-1.04) mg/dL POC Glucose (mg/dL) 116 H (75-99) mg/dL Plasma Lactic Acid Carloz 10.0 H* 7.9 H* (0.7-2.0) mmol/L Uric Acid (3.7-7.4) mg/dL Calcium (8.4-10.2) mg/dL Phosphorus (2.5-4.5) mg/dL Total Bilirubin (0.2-1.3) mg/dL AST (14-36) U/L ALT (4-34) U/L Total Protein (6.3-8.2) g/dL Albumin (3.5-5.0) g/dL Procalcitonin (0.02-0.09) ng/mL Urine Appearance (Clear) Urine Protein (Negative) Amorphous Sediment (None) /hpf Hyaline Casts (0-2) /lpf Urine Mucus (None) /hpf Crossmatch 05/25/19 05/25/19 05/25/19 Range/Units 04:58 04:58 04:58 WBC 0.1 L* (3.8-10.6) k/uL RBC 1.91 L (3.80-5.40) m/uL Hgb 5.9 L* (11.4-16.0) gm/dL Hct 18.1 L* (34.0-46.0) % RDW 20.4 H (11.5-15.5) % Plt Count 3 L* D (150-450) k/uL Chloride 109 H (98-107) mmol/L Carbon Dioxide 16 L (22-30) mmol/L BUN 72 H (7-17) mg/dL Creatinine 2.22 H (0.52-1.04) mg/dL POC Glucose (mg/dL) (75-99) mg/dL Plasma Lactic Acid Carloz (0.7-2.0) mmol/L Uric Acid 8.3 H (3.7-7.4) mg/dL Calcium 7.3 L (8.4-10.2) mg/dL Phosphorus 5.3 H (2.5-4.5) mg/dL Total Bilirubin 5.9 H (0.2-1.3) mg/dL AST 99 H (14-36) U/L ALT 49 H (4-34) U/L Total Protein 4.8 L (6.3-8.2) g/dL Albumin 2.1 L (3.5-5.0) g/dL Procalcitonin (0.02-0.09) ng/mL Urine Appearance (Clear) Urine Protein (Negative) Amorphous Sediment (None) /hpf Hyaline Casts (0-2) /lpf Urine Mucus (None) /hpf Crossmatch 05/25/19 Range/Units 11:51 WBC (3.8-10.6) k/uL RBC (3.80-5.40) m/uL Hgb (11.4-16.0) gm/dL Hct (34.0-46.0) % RDW (11.5-15.5) % Plt Count (150-450) k/uL Chloride (98-107) mmol/L Carbon Dioxide (22-30) mmol/L BUN (7-17) mg/dL Creatinine (0.52-1.04) mg/dL POC Glucose (mg/dL) 114 H (75-99) mg/dL Plasma Lactic Acid Carloz (0.7-2.0) mmol/L Uric Acid (3.7-7.4) mg/dL Calcium (8.4-10.2) mg/dL Phosphorus (2.5-4.5) mg/dL Total Bilirubin (0.2-1.3) mg/dL AST (14-36) U/L ALT (4-34) U/L Total Protein (6.3-8.2) g/dL Albumin (3.5-5.0) g/dL Procalcitonin (0.02-0.09) ng/mL Urine Appearance (Clear) Urine Protein (Negative) Amorphous Sediment (None) /hpf Hyaline Casts (0-2) /lpf Urine Mucus (None) /hpf Crossmatch Microbiology - Last 24 Hours (Table) 05/24/19 11:45 Blood Culture Gram Stain - Preliminary Blood Blood Culture - Preliminary Klebsiella oxytoca 05/24/19 11:45 Blood Culture - Final Blood Chest x-ray: report reviewed CT Scan - head: report reviewed US - abdomen: report reviewed Assessment and Plan (1) SIRS (systemic inflammatory response syndrome) Narrative/Plan: The patient is presenting with marked weakness, hypotension, and tachycardia with increased respiratory rate. There is definite concern for sepsis, given pancytopenia as well as abdominal pain and ongoing chemotherapy. She is currently on pressors and fluids. She is also on broad-spectrum antibiotics. Cultures are pending at this time. Continue aggressive care per the admitting service and [facility] Current Visit: Yes Status: Acute Code(s): R65.10 - SIRS OF NON-INFECTIOUS ORIGIN W/O ACUTE ORGAN DYSFUNCTION SNOMED Code(s): 137197595 (2) Pancytopenia Narrative/Plan: Due to anti-neoplastic chemotherapy. The patient had her second cycle of chemotherapy last week. There is an added element of hemolysis affecting the red blood cell line. The patient has already received Neulasta on 05/22/19 and therefore additional white cell growth factors are not indicated unless she has not responded for about 10 days since that date. She is receiving 1 unit of platelets. Continue to monitor and transfuse for platelets less than 10,000. She is also receiving PRBC transfusion for hemoglobin less than 7, along with immunosuppressive therapy for hemolysis Current Visit: Yes Status: Acute Code(s): D61.818 - OTHER PANCYTOPENIA SNOMED Code(s): 618864574 (3) Hemolytic anemia Narrative/Plan: The patient appears to have recurrence of hemolysis, with elevated bilirubin, in addition to anemia due to antineoplastic chemotherapy. Transfuse to keep hemoglobin, above 7 as noted above. She has been started back on Decadron bolus. As she is having difficulty with taking by mouth she'll receive 40 mg IV daily for 4 days. The patient is having recurrent hemolysis, despite 2 cycles of chemotherapy to treat the underlying disease, as well as steroid boluses. She also received a 35 g of IVIG yesterday. In this situation more aggressive measures such as rituximab, or plasmapheresis can also be considered. However the patient is currently not stable for plasmapheresis. Though she has underlying T-cell lymphoma, since the actual hemolysis is likely due to B cell antibody produ ction, rituximab may be helpful. However the patient would need to be hemodynamically more stable with possibility of active sepsis rule out before this would be recommended. Therefore at this time continue with current management as detailed above Current Visit: No Status: Acute Priority: High Code(s): D58.9 - HEREDITARY HEMOLYTIC ANEMIA, UNSPECIFIED SNOMED Code(s): 69212532 (4) Angioimmunoblastic T-cell lymphoma Narrative/Plan: Diagnostic and therapeutic circumstances as described above. The patient has widespread disease, including malignant ascites involved with this neoplasm, diagnosed during a previous admission. The plan is to continue treatment as and when acute situation resolves sufficiently Current Visit: No Status: Acute Priority: High Code(s): C86.5 - ANGIOIMMUNOBLASTIC T-CELL LYMPHOMA SNOMED Code(s): 388440228 (5) Renal insufficiency Narrative/Plan: There is a marked increase in her creatinine from baseline. KRYSTYNA due to hypotension and possible sepsis as the main consideration. However given her underlying disease and ongoing treatment, the tumor lysis is also possibility. The patient is on IV hydration. Phosphorus and potassium were noted to be elevated. Check uric acid levels. If greater than 8, proceed with Elitek Current Visit: No Status: Acute Code(s): N28.9 - DISORDER OF KIDNEY AND URETER, UNSPECIFIED SNOMED Code(s): 936137822 Plan: In her current presentation, prognosis is quite guarded. Evaluation and plan discussed in detail with and family were at the bedside, and all their questions answered to the best of my ability
--- NOTE | 2019-05-25 18:03 | CONS ---
CONSULTATION REASON FOR CONSULT: Renal failure. HISTORY OF PRESENT ILLNESS: Patient is a 68-year-old female with a history of underlying T-cell lymphoma, currently maintained on chemotherapy with status post last chemotherapy this Wednesday. Patient was admitted to the hospital with increasing weakness, decreased oral intake, extreme lethargy. She was hypotensive and admitted to the ICU. She did have a low-grade temperature as well. The patient has not had much urine output since yesterday. It has been at about 5 mL/hour. Patient is maintained on Levophed, which was recently increased. Her hemoglobin was low at 5.9 and 6.2 g/dL and she is status post packed RBCs transfusion. Platelet count was only 3000. Serum creatinine 2.2 today. Yesterday it was 1.79. Review of previous labs shows a creatinine of 0.7 on 05/12/2019. There is concern for possible tumor lysis syndrome as well. However, uric acid level was 8.3, which is not significantly elevated for tumor lysis syndrome. Phosphorus was 5.3 and the patient has not received any IV contrast recently. PAST MEDICAL HISTORY: 1. Previous history of breast cancer, status post right lumpectomy and radiation therapy. 2. History of hyperlipidemia. 3. Hypertension. 4. Type 2 diabetes. 5. Hypothyroidism. 6. Diverticulosis. PAST SURGICAL HISTORY: 1. . 2. Lumpectomy, right breast. 3. Hysterectomy. 4. Supraclavicular lymph node biopsy. 5. Colonoscopy. SOCIAL HISTORY: Negative for smoking, drug abuse or alcohol abuse. MEDICATIONS: Medications prior to admission included Levoxyl, Motrin, Effexor, Claritin, Lasix, melatonin, Aldactone, metformin, Januvia, prednisone. ALLERGIES: ALLERGIES include PENICILLIN, which causes rash and hives. PHYSICAL EXAMINATION: On examination, patient is uncomfortable. She is not in any acute distress. She is awake. Blood pressure was 110/46, heart rate 118 per minute. Patient is afebrile. EXAMINATION OF THE HEART: S1 and S2. EXAMINATION OF LUNGS: Bilateral breath sounds are heard. ABDOMEN: Soft, distended. Non-tender. Examination of lower extremities shows edema 2+ bilaterally. [employer] exam shows patient moving all 4 extremities. LABS: Hemoglobin 6.5, white cell count 0.1, platelet count 13,000. Sodium 139, potassium 5.1, chloride 109. CO2 is 16. BUN 72, creatinine 2.2. Lactic acid was 7.9, down to 4.9 now. Albumin 2.1, magnesium 1.8, phosphorus 5.3, uric acid at 8.3. UA on 05/24 was quite unremarkable with trace proteinuria. No blood or cells noted. ASSESSMENT: 1. Acute kidney injury, acute tubular necrosis, oliguric, secondary to hypotension, hypoperfusion. Doubt tumor lysis syndrome. Continue with IV fluids. Avoid any nephrotoxic agents. I will give a dose of Lasix x1 now. 2. Metabolic acidosis, anion gap, associated with renal failure as well as lactic acidosis. Start bicarb drip. 3. Pancytopenia secondary to chemotherapy. 4. T-cell lymphoma, maintained on chemotherapy. 5. Lactic acidosis associated with hypotension, possible underlying sepsis. 6. History of breast cancer. 7. Hypotension, maintained on empiric antibiotics and pressors and IV fluids as well. PLAN: Check ultrasound of the kidneys. Lasix x1. Add IV bicarb. Repeat labs in a.m. Continue to avoid nephrotoxic agents. If the patient continues to develop significant volume overload and renal function continues to deteriorate, she may need renal replacement therapy. Thank you for this consultation. Will continue to follow the patient with you during her hospitalization. MMODL / IJN: [id number] /
[2019-05-25] MEDS: ALBUMIN HUMAN 25% 50 ML in EMPTY BAG 1 BAG IVPB SCH ×2 (18:59→20:16)
[2019-05-25] MEDS ORDERED: RASBURICASE 6 MG in SODIUM CHLORIDE 0.9% 46 ML IV ONE (19:00)
[2019-05-25 19:10] LABS: Glucose,Whole Blood 196 mg/dL (75-99)
[2019-05-25] MEDS ORDERED: DEXAMETHASONE SOD PHOSPHATE 4 MG/ML 1 ML VIAL IV SCH (19:24)
[2019-05-25] MEDS: VENLAFAXINE HCL 75 MG TAB PO SCH (20:56)
[2019-05-26 00:27] LABS: Glucose,Whole Blood 220 mg/dL (75-99)
[2019-05-26] MEDS: INSULIN ASPART (NovoLOG) 100 UNIT/ML VIAL SQ SCH ×4 (00:39→18:52)
[2019-05-26] MEDS: SODIUM CHLORIDE 0.9% 50 ML with VASOPRESSIN 20 UNIT IVPB SCH ×6 (00:46→20:26)
[2019-05-26] MEDS: NOREPINEPHRINE 8 MG in SODIUM CHLORIDE 0.9% 250 ML IV SCH (03:53)
[2019-05-26] MEDS: SODIUM CHLORIDE 0.9% 1,000 ML IV SCH ×2 (03:53→18:01)
[2019-05-26 05:51] LABS: INR 1.9 (<1.2); Partial Thromboplastin Time 40.3 sec (22.0-30.0); Prothrombin Time 18.2 sec (9.0-12.0)
[2019-05-26 05:55] LABS: Anisocytosis Slight; Hypochromasia Slight; MCH 31.6 pg (25.0-35.0); MCHC 33.3 g/dL (31.0-37.0); MCV 94.9 fL (80.0-100.0); Macrocytosis Slight; Mean Platelet Volume 21.6; Poikilocytosis Slight; RBC 1.81 m/uL (3.80-5.40); RDW 19.7 % (11.5-15.5)
[2019-05-26 06:01] LABS: WBC 0.1 k/uL (3.8-10.6)
[2019-05-26 06:05] LABS: Albumin 2.2 g/dL (3.5-5.0); Calcium 6.7 mg/dL (8.4-10.2); HCT 17.2 % (34.0-46.0); HGB 5.7 gm/dL (11.4-16.0); Phosphorus 6.9 mg/dL (2.5-4.5); Platelet Count 6 k/uL (150-450); Potassium 5.5 mmol/L (3.5-5.1); Total Bilirubin 6.1 mg/dL (0.2-1.3); Total Protein 4.6 g/dL (6.3-8.2); Uric Acid 4.6 mg/dL (3.7-7.4)
[2019-05-26 06:10] LABS: Vancomycin,Random 19.3 ug/mL
[2019-05-26 06:15] LABS: Glucose,Whole Blood 200 mg/dL (75-99)
[2019-05-26 06:55] LABS: Target Cells Present
[2019-05-26] MEDS: DEXTROSE 5% IN WATER 1,000 ML with SODIUM BICARB (1 MEQ/ML) 150 ML IV SCH (09:33)
[2019-05-26] MEDS ORDERED: FUROSEMIDE 10 MG/ML 10 ML VIAL IV STA (10:06)
[2019-05-26] MEDS: LEVOTHYROXINE IVP 100 MCG/5 ML VIAL IV SCH (10:32)
[2019-05-26] MEDS: DEXAMETHASONE SOD PHOSPHATE IV SCH ×2 (10:33)
[2019-05-26] MEDS: PANTOPRAZOLE 40 MG/10 ML VIAL IV SCH ×2 (10:33→21:05)
[2019-05-26] MEDS: WATER IV SCH ×2 (10:33)
[2019-05-26] MEDS: DEXTROSE 5% IV SCH ×2 (10:33)
--- NOTE | 2019-05-26 11:32 | PN ---
PROGRESS NOTE Patient is seen for followup for acute kidney injury. She was admitted to the hospital after chemotherapy for underlying T-cell lymphoma. Patient was hypotensive, severely oliguric and acidotic yesterday with pancytopenia. She has been maintained on IV fluids and has been on pressors. Urine output was minimal yesterday; however, it seems to have picked up overnight currently staying at about 30 an hour. PHYSICAL EXAMINATION: On examination today, blood pressure is 92/52, heart rate 107 per minute, patient is afebrile. Examination of the heart S1, S2. Examination of the lungs, bilateral breath sounds are heard. Decreased breath sounds at bases. Abdomen is soft, nontender with some degree of abdominal wall edema. Examination of the lower extremities shows edema 2+ bilaterally. Chronic skin changes are noted. 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 Patient moving all 4 extremities. LABS: Show hemoglobin 5.7, platelet count 6000, white cell count 0.1, sodium 138, potassium 5.5, chloride 108, CO2 is 17, BUN 92, creatinine 2.42. ASSESSMENT: 1. Acute kidney injury, ischemic ATN, oliguric initially, currently nonoliguric. Serum creatinine has increased. However, urine output has picked up from yesterday. Expect hopefully the renal function will continue to improve over the next few days. Continue with the IV fluids. Continue to avoid any nephrotoxic medications. 2. Anion gap metabolic acidosis. Maintained on bicarb drip, which I will continue for now. 3. Hyperkalemia associated with acute kidney injury and acidosis. Expect further improvement with improving urine output and correction of acidosis. Patient has also received multiple packed RBCs transfusions which will contribute to the hyperkalemia. No active gastrointestinal bleed noted at this time. 4. Lactic acidosis. 5. Hypotension, secondary to sepsis. Blood cultures growing Klebsiella oxytoca. Patient is maintained on antibiotics. 6. Hypophosphatemia, being replaced. PLAN: Resume bicarb drip, repeat labs in a.m. Continue to avoid nephrotoxic agents. Continue with antibiotics. Repeat chest x-ray. MMODL / IJN: [id number] /
--- NOTE | 2019-05-26 11:59 | US ---
EXAMINATION TYPE: US abdomen limited DATE OF EXAM: 05/26/2019 COMPARISON: NONE CLINICAL HISTORY: worsening ascites. Mild ascites. IMPRESSION: Small amount of ascites
--- NOTE | 2019-05-26 12:02 | XR ---
EXAMINATION TYPE: XR chest 1V DATE OF EXAM: 05/26/2019 COMPARISON: 05/25/2019 HISTORY: Shortness of breath TECHNIQUE: Single frontal view of the chest is obtained. FINDINGS: Heart is enlarged and there is bilateral pleural effusions consolidation. Diffuse intersti tial pattern noted. Mediport catheter is seen. No pneumothorax. Arthropathy of the left shoulder. IMPRESSION: Bilateral pleural-parenchymal changes correlate for CHF otherwise consider pneumonia. Fi ndings stable.
[2019-05-26] MEDS: CEFEPIME 2 GM in SODIUM CHLORIDE 0.9% 100 ML IVPB SCH (12:07)
[2019-05-26 12:15] LABS: Glucose,Whole Blood 227 mg/dL (75-99)
--- NOTE | 2019-05-26 13:04 | P.PN ---
Subjective Progress Note Date: 05/26/19 Principal diagnosis: Septic shock, gram-negative bacteremia, neutropenic sepsis This is a 68-year-old female familiar to my service from her last admission. Patient is known to have history of angioimmunoblastic T-cell lymphoma, receiving chemotherapy by oncology/Dr. Gonzalez. Patient was recently admitted to the hospital with chemotherapy induced pancytopenia and neutropenic fever and sepsis. She was in the hospital for almost 2 weeks. And she was eventually discharged home and advised to follow up with oncology. Since discharge, the patient received again chemotherapy, and her last chemotherapy was last Wednesday. Since Wednesday the patient has been complaining of abdominal pain, weakness, loose stools, and noted her breathing was a bit labored. Patient felt generally weak, unable to get out of bed. She was supposed to see her oncologist today, however considering her multiple constitutional symptoms, patient decided to come to the ER. Patient was felt to have WBC count of 0.1 hemoglobin 6.2 platelets 15 lactic acid 11.6 creatinine 1.79 total bilirubin of 4.3 LDH 280. And she was noted to be hypotensive requiring fluid boluses, and after 3 L of fluids, tamire nt was placed on norepinephrine to be titrated accordingly and possibly will add vasopressin if needed. Chest x-ray showed no evidence of pneumonia. It did show evidence of cardiomegaly and mild left basilar atelectasis. Patient was given broad-spectrum antibiotics by the ER physician including vancomycin and cefepime. And she was admitted to the ICU with the impression of sepsis and septic shock. I evaluated the patient in the ICU, recommended more fluids to be given, reviewed her antibiotics. And I recommended pressors starting with norepinephrine, and to add vasopressin if needed. Patient was on 2 L nasal cannula, O2 saturation was 94%. Blood pressure was 77/44 with a mean of 55. Respiration 25, and heart rate was 125 Reevaluated today on 05/25/2019, patient remains in the intensive care unit, patient is requiring norepinephrine for marginal blood pressure. She is also on vasopressin at 0.03 units per minutes. Being titrated to a mean of 65. Her blood cultures came back positive for gram-negative rods. Final report is pending. Renal functioning seems to be worsening, and she was seen by nephrology on consultation. Her IV fluids was adjusted, and placed on sodium b icarb drip. IV fluid at present is 0.9 normal saline at 75 mL per hour. Her pulmonary status is marginal, however the patient is not clinically ready for intubation and mechanical ventilation. That will likely happen, but at this point she seems to be holding fairly well. Chest x-ray showed pleural parenchymal changes, and mild interstitial edema bilaterally. Patient is still receiving diuretics. Nephrology on the case. Labs were reviewed, continues to have pancytopenia that instead of 0.1 hemoglobin is 5.9 platelets are 3000. Patient is to receive blood and platelets, and she is to be seen by oncology/hematology on the case. Antibiotics campbell, patient remains on vancomycin and cefepime, and she is yet to be seen by infectious disease on consultation. Ultrasound of the abdomen showed mild ascites, not significant enough to consider paracentesis, and her renal ultrasound showed no evidence of hydronephrosis. BUN today is 72 creatinine is 2.22 Reevaluated today on 05/26/2019, patient remains in the ICU, basically about the same. Vancomycin has been discontinued by infectious disease, patient remains on cefepime for her gram-negative bacteremia. Overall the patient is basically about the same, remains on 3 L nasal cannula, O2 saturation is ranging between 94-96%. Lipid more tachypneic today compared to yesterday. Lasix will be given. Patient is developing worsening ascites, chest x-ray is a bit worse with worsening bilateral pleural effusions and atelectasis. Hence I have recommended Lasix to be given today. Continues to have pancytopenia, WBC count is 0.1 hem oglobin is 5.7 platelets remained low at 6000. INR is 1.9. Bicarb is a bit low at 17. And that is being addressed by nephrology on the case. Renal functioning is a bit worse with a BUN of 92 creatinine 2.42. Objective - Vital Signs Vital signs: Vital Signs Temp 97.2 F L 05/26/19 12:00 Pulse 107 H 05/26/19 12:00 Resp 36 H 05/26/19 12:00 BP 103/68 05/26/19 12:00 Pulse Ox 94 L 05/26/19 12:00 Intake & Output 05/25/19 05/26/19 05/26/19 18:59 06:59 18:59 Intake Total 3949.600 3583.495 9480.748 Output Total 230 460 153 Balance 3719.600 1191.083 960.748 Weight 107.1 kg Intake: IV 2250.6 1323.0 800 Albumin Human 25% 50 ml 100 In Empty Bag 1 bag @ 50 mls/hr IVPB Q12H [facility] Rx#: [id number] Cefepime 2 gm In Sodium 100 100 Chloride 0.9% 100 ml @ 200 mls/hr IVPB Q24H [facility] Rx#:[id number] Dexamethasone Sod 50 50 Phosphate 40 mg In Dextrose 5% in Water 50 ml @ 100 mls/hr IV DAILY [facility] Rx#:[id number] Dextrose 5% in Water 1, 675 900 450 000 ml @ 75 mls/hr IV . [id number] ONE with Sodium Bicarb (1 Meq/ml) 150 ml Rx#:[id number] Sodium Chloride 0.9% 1, 1125 300 200 000 ml @ 40 mls/hr IV . Q24H [facility] Rx#:[id number] Sodium Chloride 0.9% 50 50.6 23.0 ml @ 0.03 UNITS/MIN 4.59 mls/hr IVPB .Q11H7M ADITI with Vasopressin 20 unit Rx#:[id number] Vancomycin 1,500 mg In 250 Sodium Chloride 0.9% 250 ml @ 125 mls/hr IVPB ONCE ONE Rx#:[id number] Intake, IV Titration 774.000 328.083 3.748 Amount Norepinephrine 8 mg In 774.000 328.083 3.748 Sodium Chloride 0.9% 250 ml @ 0.05 MCG/KG/MIN 9. 216 mls/hr IV .Q24H [facility] Rx#:[id number] Blood Product 925 310 Platelet Irr Pheresis 305 Acda1 Unit [id number] Rc Irr As1 Unit 310 [id number] Rc Pheres Irrad As 3 310 Unit [id number] Rc Pheresis Irrad As 3 310 Unit [id number] Output: Urine 230 460 153 Other: Voiding Method Indwelling Catheter Indwelling Catheter - Exam General appearance: Revealed a 68-year-old female, looks frail, weak, slightly more tachypneic today compared to yesterday. Head exam: Atraumatic, normocephalic. Eye exam: . PERRLA, EOMI, minimal icterus noted. ENT exam: Dry mucous membranes otherwise unremarkable. Neck exam: Positive right posterior cervical lymphadenopathy noted. Respiratory exam: Symmetrical chest expansion, diminished breath sounds and crackles at the bases. Cardiovascular Exam: Tachycardic, Normal S1 and S2, no S3 gallop, no murmur. GI/Abdominal exam: Soft nontender no megaly no rebound no guarding. Positive ascites. Extremities exam: 3+ bipedal edema, good pulses bilaterally. Neurological exam: Alert oriented 3, no gross focal deficits. Psychiatric exam: Normal mood blunt affect normal mental status examination Skin exam: No clubbing 3+ bipedal edema no cyanosis. - Labs CBC & Chem 7: 05/26/19 05:35 05/26/19 05:35 Labs: Abnormal Lab Results - Last 24 Hours (Table) 05/24/19 05/25/19 05/25/19 Range/Units 10:23 13:23 13:23 WBC 0.1 L* (3.8-10.6) k/uL RBC 2.09 L (3.80-5.40) m/uL Hgb 6.5 L* (11.4-16.0) gm/dL Hct 20.0 L (34.0-46.0) % RDW 19.5 H (11.5-15.5) % Plt Count 13 L* D (150-450) k/uL PT (9.0-12.0) sec INR (<1.2) APTT (22.0-30.0) sec Fibrinogen (200-500) mg/dL Potassium (3.5-5.1) mmol/L Chloride (98-107) mmol/L Carbon Dioxide (22-30) mmol/L BUN (7-17) mg/dL Creatinine (0.52-1.04) mg/dL Glucose (74-99) mg/dL POC Glucose (mg/dL) (75-99) mg/dL Plasma Lactic Acid Carloz 4.9 H* (0.7-2.0) mmol/L Calcium (8.4-10.2) mg/dL Phosphorus (2.5-4.5) mg/dL Total Bilirubin (0.2-1.3) mg/dL AST (14-36) U/L ALT (4-34) U/L Total Protein (6.3-8.2) g/dL Albumin (3.5-5.0) g/dL Crossmatch See Detail 05/25/19 05/25/19 05/25/19 Range/Units 17:18 19:08 21:23 WBC (3.8-10.6) k/uL RBC (3.80-5.40) m/uL Hgb (11.4-16.0) gm/dL Hct (34.0-46.0) % RDW (11.5-15.5) % Plt Count (150-450) k/uL PT (9.0-12.0) sec INR (<1.2) APTT (22.0-30.0) sec Fibrinogen (200-500) mg/dL Potassium (3.5-5.1) mmol/L Chloride (98-107) mmol/L Carbon Dioxide (22-30) mmol/L BUN (7-17) mg/dL Creatinine (0.52-1.04) mg/dL Glucose (74-99) mg/dL POC Glucose (mg/dL) 196 H (75-99) mg/dL Plasma Lactic Acid Carloz 4.4 H* 3.9 H* (0.7-2.0) mmol/L Calcium (8.4-10.2) mg/dL Phosphorus (2.5-4.5) mg/dL Total Bilirubin (0.2-1.3) mg/dL AST (14-36) U/L ALT (4-34) U/L Total Protein (6.3-8.2) g/dL Albumin (3.5-5.0) g/dL Crossmatch 05/26/19 05/26/19 05/26/19 Range/Units 00:25 02:10 05:35 WBC 0.1 L* (3.8-10.6) k/uL RBC 1.81 L (3.80-5.40) m/uL Hgb 5.7 L* (11.4-16.0) gm/dL Hct 17.2 L* (34.0-46.0) % RDW 19.7 H (11.5-15.5) % Plt Count 6 L* D (150-450) k/uL PT (9.0-12.0) sec INR (<1.2) APTT (22.0-30.0) sec Fibrinogen (200-500) mg/dL Potassium (3.5-5.1) mmol/L Chloride (98-107) mmol/L Carbon Dioxide (22-30) mmol/L BUN (7-17) mg/dL Creatinine (0.52-1.04) mg/dL Glucose (74-99) mg/dL POC Glucose (mg/dL) 220 H (75-99) mg/dL Plasma Lactic Acid Carloz 3.8 H* (0.7-2.0) mmol/L Calcium (8.4-10.2) mg/dL Phosphorus (2.5-4.5) mg/dL Total Bilirubin (0.2-1.3) mg/dL AST (14-36) U/L ALT (4-34) U/L Total Protein (6.3-8.2) g/dL Albumin (3.5-5.0) g/dL Crossmatch 05/26/19 05/26/19 05/26/19 Range/Units 05:35 05:35 05:35 WBC (3.8-10.6) k/uL RBC (3.80-5.40) m/uL Hgb (11.4-16.0) gm/dL Hct (34.0-46.0) % RDW (11.5-15.5) % Plt Count (150-450) k/uL PT 18.2 H (9.0-12.0) sec INR 1.9 H (<1.2) APTT 40.3 H (22.0-30.0) sec Fibrinogen 501 H (200-500) mg/dL Potassium 5.5 H (3.5-5.1) mmol/L Chloride 108 H (98-107) mmol/L Carbon Dioxide 17 L (22-30) mmol/L BUN 92 H (7-17) mg/dL Creatinine 2.42 H (0.52-1.04) mg/dL Glucose 172 H (74-99) mg/dL POC Glucose (mg/dL) (75-99) mg/dL Plasma Lactic Acid Carloz 3.5 H* (0.7-2.0) mmol/L Calcium 6.7 L (8.4-10.2) mg/dL Phosphorus 6.9 H (2.5-4.5) mg/dL Total Bilirubin 6.1 H (0.2-1.3) mg/dL AST 79 H (14-36) U/L ALT 82 H (4-34) U/L Total Protein 4.6 L (6.3-8.2) g/dL Albumin 2.2 L (3.5-5.0) g/dL Crossmatch 05/26/19 05/26/19 Range/Units 06:14 12:14 WBC (3.8-10.6) k/uL RBC (3.80-5.40) m/uL Hgb (11.4-16.0) gm/dL Hct (34.0-46.0) % RDW (11.5-15.5) % Plt Count (150-450) k/uL PT (9.0-12.0) sec INR (<1.2) APTT (22.0-30.0) sec Fibrinogen (200-500) mg/dL Potassium (3.5-5.1) mmol/L Chloride (98-107) mmol/L Carbon Dioxide (22-30) mmol/L BUN (7-17) mg/dL Creatinine (0.52-1.04) mg/dL Glucose (74-99) mg/dL POC Glucose (mg/dL) 200 H 227 H (75-99) mg/dL Plasma Lactic Acid Carloz (0.7-2.0) mmol/L Calcium (8.4-10.2) mg/dL Phosphorus (2.5-4.5) mg/dL Total Bilirubin (0.2-1.3) mg/dL AST (14-36) U/L ALT (4-34) U/L Total Protein (6.3-8.2) g/dL Albumin (3.5-5.0) g/dL Crossmatch Microbiology - Last 24 Hours (Table) 05/24/19 11:45 Blood Culture Gram Stain - Final Blood Blood Culture - Final Klebsiella oxytoca Assessment and Plan Assessment: Impression: Septic shock, gram-negative bacteremia,/Klebsiella oxytoca, neutropenic sepsis with lactic acidosis, hypotension requiring pressors, and acute kidney injury. Pancytopenia secondary to chemotherapy/chemotherapy-induced Acute kidney injury T-cell lymphoma History of hemolytic anemia Type 2 diabetes History of hypertension Hypothyroidism History of tumor lysis syndrome Recurrent ascites and hepatocellular liver disease with jaundice Recommendation: Close monitoring in the ICU. Continue antibiotics in the form of cefepime, Continue IV fluids Continue pressors as needed, titrate to a mean arterial pressure of 60 or higher. Transfuse blood products including packed RBCs and platelets as they are hematology on the case. GI prophylaxis. And DVT prophylaxis. However no heparin, no anticoagulation products. Updated her on her condition, we'll continue to monitor closely in the ICU. If her condition gets any worse, patient will eat to be intubated and mechanically ventilated. CODE STATUS is full code. Time with Patient: Less than 30
--- NOTE | 2019-05-26 13:55 | P.PN ---
Subjective Progress Note Date: 05/26/19 This is a 68-year-old female patient Dr. Gaffney with a previous medical history for hypertension and hypertensive cardiovascular disease, hyperlipidemia, new diagnosis of diabetes mellitus type 2, history of breast cancer status post right lumpectomy with radiation therapy, diverticulosis, hypothyroidism, agioimmunoblastic T-cell lymphoma CD30 under the care of Dr. Gonzalez, history of tumor lysis syndrome. Patient's had a recent hospitalization at the end of April which time she presented with jaundice following her first cycle of chemotherapy. Patient was admitted into the intensive care unit for neutropenic sepsis and lactic acidosis, severe pancytopenia. Patient was discharged home with VNA. Patient subsequently underwent additional chemotherapy and had followed up with Dr. Gonzalez and had lab work done in the office and hemoglobin on Wednesday was 7.6. Patient's states he thought she was doing well after the last chemotherapy treatments. Wednesday she did have some complaints of abdominal pain which they thought was related to the fish that she ate. Last evening she got to the bathroom several times and her breathing seemed to be labored. Patient did not have any vomiting. Patient had weakness all over her body was unable to get out of bed They were due today to see Felisa in [place] for consultation. Patient has experienced some edema to the abdomen: The legs that is better than last admission. No rashes. Patient's face is flushed. No specific jaundice is noted on this admission. Patient denies having any cough. Temperature maximum was 100.0. Patient presented to [facility] emergency center for evaluation found to have a WBC count of 0.1, hemoglobin 6.2 and platelet count 15, lactic acid 11.6, BUN 65, creatinine 1.79, total bilirubin 4.3, AST 24, ALT 36, alkaline phosphatase 59, LDH 280, troponin 0.058. Total bilirubin 4.3, conjugated bilirubin 0.6, unconjugated bilirubin 2.1, delta bilirubin 1.6. TSH 1.190. blood pressure 89/44, heart rate 128, pulse ox 96%. Chest x-ray reveals persistent low lung volumes. Persistent cardiomegaly and central vascular congestion and left lateral basal acute atelectasis and or infiltrate. No significant change from recent chest x-ray. CAT scan of the brain showed no acute intracranial hemorrhage or midline shift. Mild diffuse age-related cerebral atrophy and chronic small vessel ischemic change. Oncology has ordered dexamethasone, immunoglobulin. Patient was given 1 dose of cefepime and vancomycin. Status post vitamin K. She is waiting for an ICU bed. Consults for Dr. Byrd and Dr. Beltran. 05/25: Patient is seen today in the intensive care unit. She is currently on vasopressin and norepinephrine. She is status post total of 2 units of packed RBCs and 1 unit of platelets. Patient has decreased mental status and continue lethargy and weakness. Patient is not been eating. She has generalized anasarca and albumin IV will be ordered. Patient denies having any pain as well as family denies pain. Blood culture positive for gram-negative rods and consult added for Dr. Corral. Patient is currently on cefepime and vancomycin. Urine output has been 0-5 mL per hour. Lab work prior to last unit of packed RBCs and platelet counts revealed WBC 0.1, hemoglobin 5.9, platelet count 3. BUN 72 and creatinine 2.22, lactic acid 7.9, blood sugars 83-114. Uric acid 8.3, calcium 7.3, phosphorus 5.3, magnesium 1.8, total bilirubin 5.9, AST 99, ALT 49, alkaline phosphatase 55, albumin 2.0. Influenza testing was negative, urinalysis dark brown, cloudy. 05/26: Patient remains in intensive care unit. She was given 80 mg of IV Lasix this morning with little urine output. We will add in Lasix 40 mg IV every 12 hours. Conrado wraps for lower extremity edema. She is continued on sodium bicarb drip, norepinephrine and vasopressin. Patient denies having any chest pain. Positive shortness of breath. She is currently on vasopressin, norepinephrine and bicarb drip. Norepinephrine has been on and off over the past 24 hours. Patient has been afebrile, heart rate 107, respiratory rate 36, blood pressure 103/68, pulse ox 94% on 3 L nasal cannula. Repeat lab work reveals WBC unchanged at 0.1, hemoglobin is 5.7, platelet count is 6, BUN 92 and creatinine 2.42. Blood sugars running between 172 and 227. Lactic acid 3.5. Patient is currently on insulin NovoLog scale every 6 hours. She received transfusion of one unit of packed RBCs this morning for total of 3 units on this hospitalization. Patient is scheduled for 2 units of platelets which will make a total of 3 units transfused on this hospitalization. She did take in little ice chips last evening. Patient will be placed on clear liquid diet plus protein supplements. Oncology continues Decadron IV piggyback and added Elitek 6 mg IV once. There is a new consult added for GI regarding lower GI bleed. Review of Systems Constitutional: Reports fatigue, Reports lethargy, Reports malaise, Reports poor appetite, Reports weakness Eyes: denies blurred vision Ears, nose, mouth and throat: Denies headache, Denies nasal congestion, Denies nasal discharge, Denies sore throat, Denies vertigo Cardiovascular: Reports edema, Reports leg edema, Reports shortness of breath, Denies chest pain, Denies decreased exercise tolerance, Denies dyspnea on exertion, Denies syncope Respiratory: Denies cough, Denies cough with sputum, Denies excessive sputum, Denies hemoptysis, Denies respiratory infections Gastrointestinal: Reports loss of appetite, Denies abdominal pain, Denies diarrhea, Denies nausea, Denies vomiting Genitourinary: Denies dysuria, Denies urgency, Denies urinary frequency Musculoskeletal: Reports muscle weakness, Denies myalgias Integumentary: Denies pruritus, Denies rash, Denies wounds Neurological: Reports weakness, Denies numbness Psychiatric: Denies anxiety, Denies depression Endocrine: Reports fatigue, Denies weight change Objective - Vital Signs Vital signs: Vital Signs Temp 97.5 F L 05/26/19 09:30 Pulse 107 H 05/26/19 09:30 Resp 24 05/26/19 09:30 BP 82/54 05/26/19 09:30 Pulse Ox 94 L 05/26/19 09:30 Intake & Output 05/25/19 05/26/19 05/26/19 18:59 06:59 18:59 Intake Total 3949.600 1651.083 78.748 Output Total 230 460 35 Balance 3719.600 1191.083 43.748 Weight 107.1 kg Intake: IV 2250.6 1323.0 75 Albumin Human 25% 50 ml 100 In Empty Bag 1 bag @ 50 mls/hr IVPB Q12H [facility] Rx#: [id number] Cefepime 2 gm In Sodium 100 Chloride 0.9% 100 ml @ 200 mls/hr IVPB Q24H [facility] Rx#:[id number] Dexamethasone Sod 50 Phosphate 40 mg In Dextrose 5% in Water 50 ml @ 100 mls/hr IV DAILY [facility] Rx#:[id number] Dextrose 5% in Water 1, 675 900 75 000 ml @ 75 mls/hr IV . [id number] ONE with Sodium Bicarb (1 Meq/ml) 150 ml Rx#:[id number] Sodium Chloride 0.9% 1, 1125 300 000 ml @ 75 mls/hr IV . [id number] [facility] Rx#:[id number] Sodium Chloride 0.9% 50 50.6 23.0 ml @ 0.03 UNITS/MIN 4.59 mls/hr IVPB .Q11H7M [facility] with Vasopressin 20 unit Rx#:[id number] Vancomycin 1,500 mg In 250 Sodium Chloride 0.9% 250 ml @ 125 mls/hr IVPB ONCE ONE Rx#:[id number] Intake, IV Titration 774.000 328.083 3.748 Amount Norepinephrine 8 mg In 774.000 328.083 3.748 Sodium Chloride 0.9% 250 ml @ 0.05 MCG/KG/MIN 9. 216 mls/hr IV .Q24H [facility] Rx#:[id number] Blood Product 925 0 Platelet Irr Pheresis 305 Acda1 Unit [id number] Rc Irr As1 Unit 0 [id number] Rc Pheres Irrad As 3 310 Unit [id number] Rc Pheresis Irrad As 3 310 Unit [id number] Output: Urine 230 460 35 Other: Voiding Method Indwelling Catheter Indwelling Catheter - Exam General appearance: average body habitus, no distress, patient lethargic, weak, at bedside - EENT Eyes: anicteric sclerae, EOMI, PERRLA, no ptosis, scleral mild icterus, normal appearance ENT: hearing grossly normal, NA/AT, normal oropharynx, no thrush Ears: bilateral: normal - Neck Neck: lymphadenopathy Thyroid: bilateral: enlarged - Respiratory Respiratory: bilateral: diminished, negative: dullness, rales, rhonchi, wheezing , prolonged expiration - Cardiovascular Rhythm: regular Heart sounds: normal: S1, S2 Abnormal Heart Sounds: systolic murmur, no S3 Gallop, no S4 Gallop - Gastrointestinal General gastrointestinal: hepatomegaly, soft, splenomegaly, no tenderness, no umbilical hernia, no ventral hernia - Integumentary Integumentary: No petechiae, pale Facial flushing - Neurologic Neurologic: CNII-XII intact - Musculoskeletal Musculoskeletal: gait normal, generalized weakness - Psychiatric Psychiatric: A&O x's 2, generalized weakness, no focal neural deficits. - Labs CBC & Chem 7: 05/26/19 05:35 05/26/19 05:35 Labs: Abnormal Lab Results - Last 24 Hours (Table) 05/24/19 05/25/19 05/25/19 Range/Units 10:23 04:58 11:51 WBC (3.8-10.6) k/uL RBC (3.80-5.40) m/uL Hgb (11.4-16.0) gm/dL Hct (34.0-46.0) % RDW (11.5-15.5) % Plt Count (150-450) k/uL PT (9.0-12.0) sec INR (<1.2) APTT (22.0-30.0) sec Fibrinogen (200-500) mg/dL Potassium (3.5-5.1) mmol/L Chloride (98-107) mmol/L Carbon Dioxide (22-30) mmol/L BUN (7-17) mg/dL Creatinine (0.52-1.04) mg/dL Glucose (74-99) mg/dL POC Glucose (mg/dL) 114 H (75-99) mg/dL Plasma Lactic Acid Carloz (0.7-2.0) mmol/L Uric Acid 8.3 H (3.7-7.4) mg/dL Calcium (8.4-10.2) mg/dL Phosphorus (2.5-4.5) mg/dL Total Bilirubin (0.2-1.3) mg/dL AST (14-36) U/L ALT (4-34) U/L Total Protein (6.3-8.2) g/dL Albumin (3.5-5.0) g/dL Crossmatch See Detail 05/25/19 05/25/19 05/25/19 Range/Units 13:23 13:23 17:18 WBC 0.1 L* (3.8-10.6) k/uL RBC 2.09 L (3.80-5.40) m/uL Hgb 6.5 L* (11.4-16.0) gm/dL Hct 20.0 L (34.0-46.0) % RDW 19.5 H (11.5-15.5) % Plt Count 13 L* D (150-450) k/uL PT (9.0-12.0) sec INR (<1.2) APTT (22.0-30.0) sec Fibrinogen (200-500) mg/dL Potassium (3.5-5.1) mmol/L Chloride (98-107) mmol/L Carbon Dioxide (22-30) mmol/L BUN (7-17) mg/dL Creatinine (0.52-1.04) mg/dL Glucose (74-99) mg/dL POC Glucose (mg/dL) (75-99) mg/dL Plasma Lactic Acid Carloz 4.9 H* 4.4 H* (0.7-2.0) mmol/L Uric Acid (3.7-7.4) mg/dL Calcium (8.4-10.2) mg/dL Phosphorus (2.5-4.5) mg/dL Total Bilirubin (0.2-1.3) mg/dL AST (14-36) U/L ALT (4-34) U/L Total Protein (6.3-8.2) g/dL Albumin (3.5-5.0) g/dL Crossmatch 05/25/19 05/25/19 05/26/19 Range/Units 19:08 21:23 00:25 WBC (3.8-10.6) k/uL RBC (3.80-5.40) m/uL Hgb (11.4-16.0) gm/dL Hct (34.0-46.0) % RDW (11.5-15.5) % Plt Count (150-450) k/uL PT (9.0-12.0) sec INR (<1.2) APTT (22.0-30.0) sec Fibrinogen (200-500) mg/dL Potassium (3.5-5.1) mmol/L Chloride (98-107) mmol/L Carbon Dioxide (22-30) mmol/L BUN (7-17) mg/dL Creatinine (0.52-1.04) mg/dL Glucose (74-99) mg/dL POC Glucose (mg/dL) 196 H 220 H (75-99) mg/dL Plasma Lactic Acid Carloz 3.9 H* (0.7-2.0) mmol/L Uric Acid (3.7-7.4) mg/dL Calcium (8.4-10.2) mg/dL Phosphorus (2.5-4.5) mg/dL Total Bilirubin (0.2-1.3) mg/dL AST (14-36) U/L ALT (4-34) U/L Total Protein (6.3-8.2) g/dL Albumin (3.5-5.0) g/dL Crossmatch 05/26/19 05/26/19 05/26/19 Range/Units 02:10 05:35 05:35 WBC 0.1 L* (3.8-10.6) k/uL RBC 1.81 L (3.80-5.40) m/uL Hgb 5.7 L* (11.4-16.0) gm/dL Hct 17.2 L* (34.0-46.0) % RDW 19.7 H (11.5-15.5) % Plt Count 6 L* D (150-450) k/uL PT (9.0-12.0) sec INR (<1.2) APTT (22.0-30.0) sec Fibrinogen (200-500) mg/dL Potassium 5.5 H (3.5-5.1) mmol/L Chloride 108 H (98-107) mmol/L Carbon Dioxide 17 L (22-30) mmol/L BUN 92 H (7-17) mg/dL Creatinine 2.42 H (0.52-1.04) mg/dL Glucose 172 H (74-99) mg/dL POC Glucose (mg/dL) (75-99) mg/dL Plasma Lactic Acid Carloz 3.8 H* (0.7-2.0) mmol/L Uric Acid (3.7-7.4) mg/dL Calcium 6.7 L (8.4-10.2) mg/dL Phosphorus 6.9 H (2.5-4.5) mg/dL Total Bilirubin 6.1 H (0.2-1.3) mg/dL AST 79 H (14-36) U/L ALT 82 H (4-34) U/L Total Protein 4.6 L (6.3-8.2) g/dL Albumin 2.2 L (3.5-5.0) g/dL Crossmatch 05/26/19 05/26/19 05/26/19 Range/Units 05:35 05:35 06:14 WBC (3.8-10.6) k/uL RBC (3.80-5.40) m/uL Hgb (11.4-16.0) gm/dL Hct (34.0-46.0) % RDW (11.5-15.5) % Plt Count (150-450) k/uL PT 18.2 H (9.0-12.0) sec INR 1.9 H (<1.2) APTT 40.3 H (22.0-30.0) sec Fibrinogen 501 H (200-500) mg/dL Potassium (3.5-5.1) mmol/L Chloride (98-107) mmol/L Carbon Dioxide (22-30) mmol/L BUN (7-17) mg/dL Creatinine (0.52-1.04) mg/dL Glucose (74-99) mg/dL POC Glucose (mg/dL) 200 H (75-99) mg/dL Plasma Lactic Acid Carloz 3.5 H* (0.7-2.0) mmol/L Uric Acid (3.7-7.4) mg/dL Calcium (8.4-10.2) mg/dL Phosphorus (2.5-4.5) mg/dL Total Bilirubin (0.2-1.3) mg/dL AST (14-36) U/L ALT (4-34) U/L Total Protein (6.3-8.2) g/dL Albumin (3.5-5.0) g/dL Crossmatch Microbiology - Last 24 Hours (Table) 05/24/19 11:45 Blood Culture Gram Stain - Final Blood Blood Culture - Final Klebsiella oxytoca Assessment and Plan Plan: 1. Neutropenic sepsis with lactic acidosis and septic shock. Patient will be admitted to the intensive care unit, consult with rug weaver and oncology. Patient is status post dexamethasone and gammaglobulin. Cefepime 2 g every 24 hours, vancomycin. Patient requires vasopressors. Continue IV Lasix 80 mg this morning, 40 mg IV every 12 hours. 2. Pancytopenia secondary to lymphoma and chemotherapy. Status post transfusion total of 3 units units packed RBCs and 1 unit of platelets. Patient is scheduled for 2 more units of platelets today. 3. Acute kidney injury. Avoid nephrotoxic agents. Consult with nephrology appreciated. Patient is start bicarb drip. 4. Elevated troponin. 5. T-cell lymphoma CD30 positive, status post chemotherapy. Oncology consult appreciated. IV Decadron, Elitek x1. 6. History of hypertension and hypertensive cardio vascular disease currently hypotensive. 7. Diabetes mellitus type 2. New onset. Discontinue metformin. Continue NovoLog scale. 8. Hyperlipidemia. Off statin. 9. Hypothyroidism. Continue levothyroxine transitioned to IV 25 g daily. Home dose is 50 g daily. 10. History of tumor lysis syndrome. 11. Diverticulosis. Colonoscopy is up-to-date. 12. Recurrent depression. Currently on Effexor XR 75 mg orally once every day. 13. Hepatocellular disease. Status post vitamin K. 14. Moderate to severe protein malnutrition DVT prophylaxis. Bilateral knee- high THA hose. 15. GI prophylaxis. Start Protonix 40 mg IV twice daily. 16. DVT prophylaxis. No heparin due to thrombocytopenia. 17. Klebsiella bacteremia, present on admission. Consult with Dr. Corral appreciated. Continue cefepime. 18. Infectious and metabolic encephalopathy, present on admission, gradually worsening. Continue close monitoring in the intensive care unit 19. Generalized anasarca and ascites. Albumin 4 doses. Patient is full code. 20. Possible acute GI bleed. Consult with GI. Prognosis: Guarded Discharge plan: Home with [facility]NA in the past, to be determined Impression and plan of care have been directed as dictated by the signing physician. Verito Veloz nurse practitioner acting as scribe for signing physician.
[2019-05-26] MEDS: ALBUMIN HUMAN 25% 50 ML in EMPTY BAG 1 BAG IVPB SCH (14:06)
[2019-05-26 14:21] LABS: Anisocytosis Slight; HCT 20.2 % (34.0-46.0); MCH 31.5 pg (25.0-35.0); MCHC 32.9 g/dL (31.0-37.0); MCV 95.8 fL (80.0-100.0); Macrocytosis Slight; Mean Platelet Volume 14.7; Poikilocytosis Slight; RDW 18.1 % (11.5-15.5)
[2019-05-26 14:28] LABS: HGB 6.6 gm/dL (11.4-16.0); Platelet Count 5 k/uL (150-450); WBC 0.1 k/uL (3.8-10.6)
[2019-05-26 15:04] LABS: Poikilocytosis (M) Present; Polychromasia Present
[2019-05-26 15:05] LABS: Rouleaux Present
--- NOTE | 2019-05-26 16:29 | PN ---
PROGRESS NOTE DATE OF SERVICE: 05/26/2019. REASON FOR FOLLOWUP: Klebsiella bacteremia. INTERVAL HISTORY: The patient is currently afebrile. The patient is feeling slightly better today. However, the patient is requiring pressor to support her blood pressure. The patient denies having any chest pain or cough. No abdominal pain. No nausea, vomiting or any diarrhea reported. PHYSICAL EXAMINATION: Blood pressure 108/76, pulse of 104, temperature 97.2. She is 97% on 2 L nasal cannula. General description is an elderly female lying in bed in no distress. RESPIRATORY SYSTEM: Unlabored breathing. Clear to auscultation anteriorly. HEART: S1, S2. Regular rate and rhythm. ABDOMEN: Soft. No tenderness. LABS: Hemoglobin 6.6, white count 0.1. BUN of 92, creatinine 2.42. Blood culture with Klebsiella which is a sensitive pathogen. Repeat blood culture has been pending so far. DIAGNOSTIC IMPRESSION AND PLAN: Patient with neutropenic sepsis in this patient who did have chemo for her breast cancer and evidence of Klebsiella bacteremia. The patient is broadly covered with cefepime at this time; will continue and will monitor her clinical course closely. Continue with supportive care. Family at the bedside. Questions were answered. MMODL / IJN: [id number] /
[2019-05-26 18:24] LABS: Glucose,Whole Blood 190 mg/dL (75-99)
[2019-05-26] MEDS ORDERED: PHYTONADIONE 5 MG in SODIUM CHLORIDE 0.9% 50 ML IVPB STA (19:49)
--- NOTE | 2019-05-26 19:49 | P.PN ---
Subjective Progress Note Date: 05/26/19 the patient remains very weak and lethargic. On examination, she moans intermittently but was not able to provide any coherent reason for the same. She does open eyes to commands, but does not answer questions to any significant extent. Generalized edema persists. No fever/chills/nausea/vomiting. Urine output remains diminished. She has had passage of small amounts of blood, mostly dark and clotted, with her bowel movements, 2 Objective - Vital Signs Vital signs: Vital Signs Temp 97.5 F L 05/26/19 18:35 Pulse 106 H 05/26/19 19:00 Resp 36 H 05/26/19 19:00 BP 109/65 05/26/19 19:00 Pulse Ox 95 05/26/19 19:00 Intake & Output 05/26/19 05/26/19 05/27/19 06:59 18:59 06:59 Intake Total 2625.676 0859.899 115 Output Total 460 528 75 Balance 7105.431 5339.899 40 Weight 107.1 kg Intake: IV 1323.0 1450 115 Albumin Human 25% 50 ml 100 In Empty Bag 1 bag @ 50 mls/hr IVPB Q12H [facility] Rx#: [id number] Cefepime 2 gm In Sodium 100 Chloride 0.9% 100 ml @ 200 mls/hr IVPB Q24H [facility] Rx#:[id number] Dexamethasone Sod 50 Phosphate 40 mg In Dextrose 5% in Water 50 ml @ 100 mls/hr IV DAILY [facility] Rx#:[id number] Dextrose 5% in Water 1, 900 900 75 000 ml @ 75 mls/hr IV . [id number] ONE with Sodium Bicarb (1 Meq/ml) 150 ml Rx#:[id number] Sodium Chloride 0.9% 1, 300 400 40 000 ml @ 40 mls/hr IV . Q24H [facility] Rx#:[id number] Sodium Chloride 0.9% 50 23.0 ml @ 0.03 UNITS/MIN 4.59 mls/hr IVPB .Q11H7M [facility] with Vasopressin 20 unit Rx#:[id number] Intake, IV Titration 328.083 5.899 Amount Norepinephrine 8 mg In 328.083 5.899 Sodium Chloride 0.9% 250 ml @ 0.05 MCG/KG/MIN 9. 216 mls/hr IV .Q24H [facility] Rx#:[id number] Blood Product 511 Platelet Irr Pheresis 3 201 Acda Unit [id number] Rc Irr As1 Unit 0 [id number] Rc Irr As1 Unit 310 [id number] Output: Urine 460 528 75 Other: Voiding Method Indwelling Catheter - Constitutional General appearance: Present: mild distress - EENT Eyes: Present: EOMI ENT: Present: hearing grossly normal - Respiratory Respiratory: bilateral: diminished - Cardiovascular Rhythm: regular Heart sounds: normal: S1, S2 - Gastrointestinal General gastrointestinal: Present: distended, normal bowel sounds, soft - Integumentary Integumentary: Present: normal - Neurologic Neurologic: Present: CNII-XII intact - Musculoskeletal Musculoskeletal: Present: generalized weakness, strength equal bilaterally - Psychiatric Psychiatric Comment(s): mental status as noted above - Labs CBC & Chem 7: 05/26/19 14:00 05/26/19 05:35 Labs: Abnormal Lab Results - Last 24 Hours (Table) 05/24/19 05/25/19 05/26/19 Range/Units 10:23 21:23 00:25 WBC (3.8-10.6) k/uL RBC (3.80-5.40) m/uL Hgb (11.4-16.0) gm/dL Hct (34.0-46.0) % RDW (11.5-15.5) % Plt Count (150-450) k/uL PT (9.0-12.0) sec INR (<1.2) APTT (22.0-30.0) sec Fibrinogen (200-500) mg/dL Potassium (3.5-5.1) mmol/L Chloride (98-107) mmol/L Carbon Dioxide (22-30) mmol/L BUN (7-17) mg/dL Creatinine (0.52-1.04) mg/dL Glucose (74-99) mg/dL POC Glucose (mg/dL) 220 H (75-99) mg/dL Plasma Lactic Acid Carloz 3.9 H* (0.7-2.0) mmol/L Calcium (8.4-10.2) mg/dL Phosphorus (2.5-4.5) mg/dL Total Bilirubin (0.2-1.3) mg/dL AST (14-36) U/L ALT (4-34) U/L Total Protein (6.3-8.2) g/dL Albumin (3.5-5.0) g/dL Crossmatch See Detail 05/26/19 05/26/19 05/26/19 Range/Units 02:10 05:35 05:35 WBC 0.1 L* (3.8-10.6) k/uL RBC 1.81 L (3.80-5.40) m/uL Hgb 5.7 L* (11.4-16.0) gm/dL Hct 17.2 L* (34.0-46.0) % RDW 19.7 H (11.5-15.5) % Plt Count 6 L* D (150-450) k/uL PT (9.0-12.0) sec INR (<1.2) APTT (22.0-30.0) sec Fibrinogen (200-500) mg/dL Potassium 5.5 H (3.5-5.1) mmol/L Chloride 108 H (98-107) mmol/L Carbon Dioxide 17 L (22-30) mmol/L BUN 92 H (7-17) mg/dL Creatinine 2.42 H (0.52-1.04) mg/dL Glucose 172 H (74-99) mg/dL POC Glucose (mg/dL) (75-99) mg/dL Plasma Lactic Acid Carloz 3.8 H* (0.7-2.0) mmol/L Calcium 6.7 L (8.4-10.2) mg/dL Phosphorus 6.9 H (2.5-4.5) mg/dL Total Bilirubin 6.1 H (0.2-1.3) mg/dL AST 79 H (14-36) U/L ALT 82 H (4-34) U/L Total Protein 4.6 L (6.3-8.2) g/dL Albumin 2.2 L (3.5-5.0) g/dL Crossmatch 05/26/19 05/26/19 05/26/19 Range/Units 05:35 05:35 06:14 WBC (3.8-10.6) k/uL RBC (3.80-5.40) m/uL Hgb (11.4-16.0) gm/dL Hct (34.0-46.0) % RDW (11.5-15.5) % Plt Count (150-450) k/uL PT 18.2 H (9.0-12.0) sec INR 1.9 H (<1.2) APTT 40.3 H (22.0-30.0) sec Fibrinogen 501 H (200-500) mg/dL Potassium (3.5-5.1) mmol/L Chloride (98-107) mmol/L Carbon Dioxide (22-30) mmol/L BUN (7-17) mg/dL Creatinine (0.52-1.04) mg/dL Glucose (74-99) mg/dL POC Glucose (mg/dL) 200 H (75-99) mg/dL Plasma Lactic Acid Carloz 3.5 H* (0.7-2.0) mmol/L Calcium (8.4-10.2) mg/dL Phosphorus (2.5-4.5) mg/dL Total Bilirubin (0.2-1.3) mg/dL AST (14-36) U/L ALT (4-34) U/L Total Protein (6.3-8.2) g/dL Albumin (3.5-5.0) g/dL Crossmatch 05/26/19 05/26/19 05/26/19 Range/Units 12:14 14:00 18:23 WBC 0.1 L* (3.8-10.6) k/uL RBC 2.10 L (3.80-5.40) m/uL Hgb 6.6 L* (11.4-16.0) gm/dL Hct 20.2 L (34.0-46.0) % RDW 18.1 H (11.5-15.5) % Plt Count 5 L* (150-450) k/uL PT (9.0-12.0) sec INR (<1.2) APTT (22.0-30.0) sec Fibrinogen (200-500) mg/dL Potassium (3.5-5.1) mmol/L Chloride (98-107) mmol/L Carbon Dioxide (22-30) mmol/L BUN (7-17) mg/dL Creatinine (0.52-1.04) mg/dL Glucose (74-99) mg/dL POC Glucose (mg/dL) 227 H 190 H (75-99) mg/dL Plasma Lactic Acid Carloz (0.7-2.0) mmol/L Calcium (8.4-10.2) mg/dL Phosphorus (2.5-4.5) mg/dL Total Bilirubin (0.2-1.3) mg/dL AST (14-36) U/L ALT (4-34) U/L Total Protein (6.3-8.2) g/dL Albumin (3.5-5.0) g/dL Crossmatch Microbiology - Last 24 Hours (Table) 05/25/19 17:18 Blood Culture - Preliminary Blood No Growth after 24 hours 05/24/19 11:45 Blood Culture Gram Stain - Final Blood Blood Culture - Final Klebsiella oxytoca Assessment and Plan (1) Sepsis Narrative/Plan: the patient had presented with SIRS, and now has blood cultures positive for Klebsiella, confirming sepsis. The source is not known, but given her severe immunosuppression, could be the bowel, asctic fluid or the urine. the patient is currently on aggressive antibiotic therapy for the same. She continues to require pressors, though the required dose level has decreased. Continue aggressive supportive treatment per [facility] and the admitting service Current Visit: Yes Status: Acute Code(s): A41.9 - SEPSIS, UNSPECIFIED ORGANISM SNOMED Code(s): 39542402 (2) Pancytopenia Narrative/Plan: due to antineoplastic chemotherapy. The patient has received Neulasta on 05/22/19. WBC recovery would not be expected to early next week. Continue to monitor with supportive transfusions as needed to keep hemoglobin greater than 7, and platelets greater than 10. There may also be a component of hemolytic anemia to the low hemoglobin, which is being treated with steroids. Current Visit: Yes Status: Acute Code(s): D61.818 - OTHER PANCYTOPENIA SNOMED Code(s): 766367180 (3) Hemolytic anemia Narrative/Plan: the patient is back on bolus Decadron, given through the IV. We will monitor hemolytic markers. Bilirubin was actually increase today, but unconjugated bilirubin was less than 50% of the total. Current Visit: No Status: Acute Priority: High Code(s): D58.9 - HEREDITARY HEMOLYTIC ANEMIA, UNSPECIFIED SNOMED Code(s): 39162897 (4) Angioimmunoblastic T-cell lymphoma Current Visit: No Status: Acute Priority: High Code(s): C86.5 - ANGIOIMMUNOBLASTIC T-CELL LYMPHOMA SNOMED Code(s): 543488453 (5) Renal insufficiency Narrative/Plan: given positive cultures, hypertension and sepsis appeared to be the more likely cause. Based on her labs, the patient did receive rasburicase. We are continuing to monitor tumor lysis labs, and we will repeat rasburicase is needed. Nephrology following Current Visit: No Status: Acute Code(s): N28.9 - DISORDER OF KIDNEY AND URETER, UNSPECIFIED SNOMED Code(s): 264054685 (6) Coagulopathy Narrative/Plan: this is felt to be likely due to liver insufficiency. Fibrinogen was normal, which makes DIC unlikely. The patient has elevated ALT and AST, though these are not very marked. Bilirubin is more significantly elevated, which was initially felt to be due to hemolysis. However as stated, unconjugated bilirubin is less than 50% of the total. Therefore the patient may have suffered hepatic injury due to sepsis and hypotension. - IV vitamin K will be repeated. Continue to monitor coags with further supplementation as needed. If the patient develops more significant active bleeding, then FFP or Kcentra can also be utilized. Current Visit: Yes Status: Acute Code(s): D68.9 - COAGULATION DEFECT, UNSPEC IFIED SNOMED Code(s): 07225580 (7) GI bleed Narrative/Plan: discussed in detail with nursing. Amount of blood appears to be overall small, and mostly dark and clotted. The patient is high risk for any kind of endoscopic procedure at this time and therefore these have appropriately not been recommended by GI. She has multiple risk factors including predisposition for gastritis, low platelets and coagulopathy, as well as possibility of some bowel ischemia - At this time the plan for treatment would be supportive transfusions to keep hemoglobin above 7, and to keep platelets greater than 10. She is will also receive IV vitamin K to try to correct her coagulopathy. If the patient develops signs of more aggressive bleeding, then we will need to consider other measures such as more aggressive platelet transfusions in the short-term, anti- fibrinolytic agents and Kcentra/FFP, as well as Sandostatin, though the latter m ay be somewhat problematic in case of bowel ischemia. however aggressive GI bleed is usually not a feature of ischemic bowel. The patient is already on IV vasopressin. Current Visit: Yes Status: Acute Code(s): K92.2 - GASTROINTESTINAL HEMORRHAGE, UNSPECIFIED SNOMED Code(s): 47761146 Plan: case discussed in detail with family at the patient's bedside, and with nursing. prognosis is very guarded at this time. However if the patient can be supported till WBC recovery occurs, then her prognosis should improve significantly
[2019-05-26] MEDS: VENLAFAXINE HCL 75 MG TAB PO SCH (21:00)
[2019-05-26] MEDS: FUROSEMIDE 10 MG/ML 4 ML VIAL IV SCH (21:05)
[2019-05-26] MEDS ORDERED: Kcentra PER PHARMACY 1 EACH MISC MISCELLANE PRN (23:42)
--- NOTE | 2019-05-26 23:44 | P.CONS ---
History of Present Illness - Reason for Consult Consult date: 05/26/19 Blood per rectum Requesting physician: Rohan Byrd - Chief Complaint Weakness - History of Present Illness 68-year-old female with multiple medical comorbidities including a ngioimmunoblastic T-cell lymphoma currently receiving chemotherapy with oncology service, pancytopenia, with recent admission secondary to neutropenic fever and sepsis who presented to the hospital with complaints of weakness. The patient had been reporting abdominal pain, weakness, loose stools as well as shortness of breath. Patient has been in the ICU where she has been receiving aggressive supportive measures including blood pressure support and been on broad-spectrum antibiotic therapies for treatment of a gram-negative bacteremia of unknown etiology. Currently she is also being managed by the nephrology service for elevated creatinine and the infectious disease service for her bacteremia. Oncology has been managing her pancytopenia with administration of Neulasta. Today the patient was noted to have 2 bloody bowel movements. No episodes of GI bleeding prior to this. Denying any change in abdominal discomfort. No nausea or vomiting reported. Review of Systems REVIEW OF SYSTEMS: CONSTITUTIONAL: Denies any weight change but reports chills and fatigue. CARDIOVASCULAR: Denies any chest pain, palpitations high or low blood pressures RESPIRATORY: Denies any shortness of breath, hemoptysis or cough. GENITOURINARY: No dysuria or hematuria, currently with Bess in place. MUSCULOSKELETAL: No focal weakness reported. SKIN: Denies any new rashes or lesions, jaundice or pallor. PSYCHIATRIC: Denies any depression or anxiety. NEUROLOGY: Denies headache, denies any new focal deficits. EARS/NOSE/THROAT: No recent hearing change, congestion, nasal discharge or sore throat. EYES: No pain in eyes, discharge or change in vision. GASTROINTESTINAL: As per HPI. Past Medical History Past Medical History: Cancer, Diabetes Mellitus, Hyperlipidemia, Hypertension, Thyroid Disorder Additional Past Medical History / Comment(s): Pt states she was told 04/18/19 that she has lymphoma-no treatment plan yet, recent hands/legs/feet edema, 2009 R breast cancer with lumpectomy and radiation treatments, NIDDM type II, hypothyroid, diverticular disease History of Any Multi-Drug Resistant Organisms: None Reported Past Surgical History: Breast Surgery, Section, Hysterectomy Additional Past Surgical History / Comment(s): 04/12/19 R supraclavicular lymph node core biopsy, right breast lumpectomy, colonoscopy Past Anesthesia/Blood Transfusion Reactions: No Reported Reaction Past Psychological History: No Psychological Hx Reported Smoking Status: Never smoker Past Alcohol Use History: Rare Additional Past Alcohol Use History / Comment(s): Pt resides with her spouse. She is independent. She states lately though, she has not been driving, her spouse has been doing the driving. Past Drug Use History: None Reported - Past Family History Father Family Medical History: Myocardial Infarction (TN) Additional Family Medical History / Comment(s): [place] times 2-first TN at the age of 35yrs and from 2nd TN at the age of age 52 Mother Family Medical History: Cancer Additional Family Medical History / Comment(s): Mother of pancreatic cancer in her 70s. Brother(s) History Unknown: Yes Sister(s) Family Medical History: Cancer Additional Family Medical History / Comment(s): Patient has 2 sisters one of them with breast cancer. Daughter(s) Family Medical History: No Reported History Additional Family Medical History / Comment(s): Patient has one daughter who is an ICU nurse no major medical problems. Son(s) Family Medical History: No Reported History Additional Family Medical History / Comment(s): Patient has one son no major medical problems. Medications and Allergies Home Medications Medication Instructions Recorded Confirmed Type Levothyroxine Sodium [Levoxyl] 50 mcg PO DAILY 04/03/19 05/24/19 History Ibuprofen [Motrin] 800 mg PO TID PRN 04/19/19 05/24/19 History Venlafaxine HCl [Effexor] 75 mg PO HS 04/19/19 05/24/19 History Loratadine [Claritin] 10 mg PO DAILY 05/03/19 05/24/19 History Furosemide [Lasix] 40 mg PO BID #60 tablet 05/12/19 05/24/19 Rx Melatonin 6 mg PO HS PRN tablet 05/12/19 05/24/19 Rx Nystatin 100,000 Unit/ml Susp 5 ml PO 5XD #45 cup 05/12/19 05/24/19 Rx [Mycostatin Oral Susp] Spironolactone [Aldactone] 25 mg PO DAILY #30 tab 05/12/19 05/24/19 Rx metFORMIN HCL 1,000 mg PO BID #60 tab 05/12/19 05/24/19 Rx sitaGLIPtin PHOSPHATE [Januvia] 50 mg PO DAILY #30 tab 05/12/19 05/24/19 Rx Lidocaine Viscous [Xylocaine 30 ml PO 5XD #45 dose 05/13/19 05/24/19 Rx Viscous 2%] Fexofenadine/Pseudoephedrine 1 tab PO BID PRN 05/24/19 05/24/19 History [Marimar-D 12 Hour Tablet] Lidocaine-Prilocaine Cream [Emla 1 applic TOPICAL DAILY PRN 05/24/19 05/24/19 History Cream 2.5%/2.5%] predniSONE 100 mg PO DIRECTED 05/24/19 05/24/19 History Allergies Allergy/AdvReac Type Severity Reaction Status Date / Time Penicillins Allergy Unknown Rash/Hives Verified 05/24/19 11:15 Physical Exam Vitals: Vital Signs Temp Pulse Resp BP Pulse Ox 05/26/19 23:00 108 H 21 104/68 96 05/26/19 22:45 106 H 32 H 104/74 95 05/26/19 22:30 105 H 26 H 114/62 95 05/26/19 22:15 106 H 29 H 104/71 96 05/26/19 22:00 105 H 30 H 114/71 94 L 05/26/19 21:45 106 H 36 H 113/64 96 05/26/19 21:30 109 H 38 H 112/75 95 05/26/19 21:15 106 H 32 H 115/60 95 05/26/19 21:00 106 H 30 H 113/73 94 L 05/26/19 20:45 105 H 44 H 106/66 96 05/26/19 20:32 97.5 F L 107 H 24 106/66 95 05/26/19 20:30 105 H 28 H 102/73 95 05/26/19 20:15 107 H 29 H 112/65 94 L 05/26/19 20:00 96.8 F L 105 H 35 H 115/66 94 L 05/26/19 19:45 105 H 35 H 111/68 95 05/26/19 19:30 97.5 F L 105 H 33 H 113/74 95 05/26/19 19:15 71 H 95 05/26/19 19:00 106 H 36 H 109/65 95 05/26/19 18:45 104 H 24 97/63 96 05/26/19 18:35 97.5 F L 105 H 29 H 101/62 05/26/19 18:30 110 H 26 H 105/60 93 L 05/26/19 18:15 107 H 33 H 104/66 93 L 05/26/19 18:05 97.4 F L 103 H 31 H 107/65 05/26/19 18:00 105 H 33 H 109/69 94 L 05/26/19 17:55 97.5 F L 104 H 38 H 109/69 05/26/19 17:45 99 28 H 107/62 94 L 05/26/19 17:30 107 H 36 H 108/75 94 L 05/26/19 17:15 105 H 38 H 99/70 93 L 05/26/19 17:11 97.5 F L 105 H 32 H 108/75 05/26/19 17:00 105 H 35 H 113/67 95 05/26/19 16:45 102 H 32 H 102/62 95 05/26/19 16:41 96.7 F L 105 H 22 113/67 95 05/26/19 16:31 96 F L 101 H 22 102/62 95 05/26/19 16:30 101 H 24 101/66 95 05/26/19 16:15 104 H 25 H 107/65 94 L 05/26/19 16:00 97.2 F L 105 H 30 H 102/62 94 L 05/26/19 15:45 103 H 25 H 106/69 94 L 05/26/19 15:30 104 H 30 H 107/66 95 05/26/19 15:15 103 H 24 106/58 96 05/26/19 15:00 96 29 H 107/58 96 05/26/19 14:45 102 H 22 104/59 98 05/26/19 14:30 101 H 20 95/50 97 05/26/19 14:15 97.2 F L 104 H 21 108/76 97 05/26/19 14:00 105 H 25 H 112/64 94 L 05/26/19 13:45 107 H 28 H 112/68 92 L 05/26/19 13:30 104 H 35 H 105/63 94 L 05/26/19 13:16 102 H 31 H 84/53 96 05/26/19 13:01 105 H 29 H 102/56 94 L 05/26/19 12:45 106 H 27 H 81/63 93 L 05/26/19 12:30 105 H 32 H 119/49 95 05/26/19 12:17 96.7 F L 102 H 22 102/62 95 05/26/19 12:15 106 H 29 H 103/68 94 L 05/26/19 12:00 97.2 F L 107 H 36 H 103/68 94 L 05/26/19 11:45 109 H 35 H 91/61 95 05/26/19 11:30 107 H 30 H 84/49 96 05/26/19 11:15 106 H 31 H 89/46 96 05/26/19 11:00 109 H 34 H 99/52 94 L 05/26/19 10:45 109 H 36 H 103/50 94 L 05/26/19 10:30 107 H 32 H 94/37 94 L 05/26/19 10:15 107 H 32 H 94/37 95 05/26/19 10:10 97.3 F L 108 H 31 H 94/37 05/26/19 10:00 107 H 33 H 92/70 94 L 05/26/19 09:45 107 H 29 H 91/51 94 L 05/26/19 09:40 97.3 F L 108 H 33 H 91/51 05/26/19 09:30 97.5 F L 107 H 30 H 89/53 94 L 05/26/19 09:15 110 H 32 H 86/62 94 L 05/26/19 09:00 109 H 30 H 95/59 94 L 05/26/19 08:45 111 H 32 H 86/57 94 L 05/26/19 08:30 109 H 33 H 98/44 93 L 05/26/19 08:15 109 H 30 H 92/52 94 L 05/26/19 08:00 97.5 F L 110 H 34 H 93/57 95 05/26/19 07:45 108 H 35 H 97/62 95 05/26/19 07:30 111 H 37 H 156/90 93 L 05/26/19 07:15 107 H 28 H 105/71 94 L 05/26/19 07:00 109 H 28 H 105/71 93 L 05/26/19 06:30 109 H 30 H 105/61 93 L 05/26/19 06:00 110 H 30 H 97/58 93 L 05/26/19 05:30 109 H 28 H 109/61 94 L 05/26/19 05:00 108 H 30 H 104/64 93 L 05/26/19 04:30 109 H 28 H 101/62 94 L 05/26/19 04:00 97.3 F L 110 H 23 99/52 93 L 05/26/19 03:30 110 H 28 H 102/61 93 L 05/26/19 03:00 110 H 31 H 110/59 93 L 05/26/19 02:30 108 H 29 H 102/52 93 L 05/26/19 02:00 111 H 29 H 110/57 92 L 05/26/19 01:30 108 H 30 H 112/66 93 L 05/26/19 01:00 110 H 27 H 114/63 93 L 05/26/19 00:30 112 H 24 117/61 93 L 05/26/19 00:00 97.3 F L 112 H 30 H 116/60 93 L 05/25/19 23:30 111 H 29 H 115/59 94 L Intake and Output 05/26/19 05/26/19 05/27/19 14:59 22:59 06:59 Intake Total 5542.089 3498.264 115 Output Total 253 615 85 Balance 1092.899 751.264 30 Intake: IV 1030 780 115 Cefepime 2 gm In Sodium 100 Chloride 0.9% 100 ml @ 200 mls/hr IVPB Q24H [facility] Rx#:[id number] Dexamethasone Sod 50 Phosphate 40 mg In Dextrose 5% in Water 50 ml @ 100 mls/hr IV DAILY [facility] Rx#:[id number] Dextrose 5% in Water 1, 600 450 75 000 ml @ 75 mls/hr IV . [id number] ONE with Sodium Bicarb (1 Meq/ml) 150 ml Rx#:[id number] Phytonadione 5 mg In 50 Sodium Chloride 0.9% 50 ml @ 100 mls/hr IVPB ONCE STA Rx#:[id number] Sodium Chloride 0.9% 1, 280 280 40 000 ml @ 40 mls/hr IV . Q24H [facility] Rx#:[id number] Intake, IV Titration 5.899 75.264 Amount Norepinephrine 8 mg In 5.899 75.264 Sodium Chloride 0.9% 250 ml @ 0.05 MCG/KG/MIN 9. 216 mls/hr IV .Q24H [facility] Rx#:[id number] Blood Product 310 511 Platelet Irr Pheresis 3 201 Acda Unit [id number] Rc Irr As1 Unit 0 [id number] Rc Irr As1 Unit 310 [id number] Output: Urine 253 615 85 Other: Voiding Method Indwelling Catheter Indwelling Catheter # Bowel Movements 1 1 Results CBC & Chem 7: 05/26/19 14:00 05/26/19 05:35 Labs: Abnormal Lab Results - Last 24 Hours (Table) 05/24/19 05/26/19 05/26/19 Range/Units 10:23 00:25 02:10 WBC (3.8-10.6) k/uL RBC (3.80-5.40) m/uL Hgb (11.4-16.0) gm/dL Hct (34.0-46.0) % RDW (11.5-15.5) % Plt Count (150-450) k/uL PT (9.0-12.0) sec INR (<1.2) APTT (22.0-30.0) sec Fibrinogen (200-500) mg/dL Potassium (3.5-5.1) mmol/L Chloride (98-107) mmol/L Carbon Dioxide (22-30) mmol/L BUN (7-17) mg/dL Creatinine (0.52-1.04) mg/dL Glucose (74-99) mg/dL POC Glucose (mg/dL) 220 H (75-99) mg/dL Plasma Lactic Acid Carloz 3.8 H* (0.7-2.0) mmol/L Calcium (8.4-10.2) mg/dL Phosphorus (2.5-4.5) mg/dL Total Bilirubin (0.2-1.3) mg/dL AST (14-36) U/L ALT (4-34) U/L Total Protein (6.3-8.2) g/dL Albumin (3.5-5.0) g/dL Crossmatch See Detail 05/26/19 05/26/19 05/26/19 Range/Units 05:35 05:35 05:35 WBC 0.1 L* (3.8-10.6) k/uL RBC 1.81 L (3.80-5.40) m/uL Hgb 5.7 L* (11.4-16.0) gm/dL Hct 17.2 L* (34.0-46.0) % RDW 19.7 H (11.5-15.5) % Plt Count 6 L* D (150-450) k/uL PT 18.2 H (9.0-12.0) sec INR 1.9 H (<1.2) APTT 40.3 H (22.0-30.0) sec Fibrinogen 501 H (200-500) mg/dL Potassium 5.5 H (3.5-5.1) mmol/L Chloride 108 H (98-107) mmol/L Carbon Dioxide 17 L (22-30) mmol/L BUN 92 H (7-17) mg/dL Creatinine 2.42 H (0.52-1.04) mg/dL Glucose 172 H (74-99) mg/dL POC Glucose (mg/dL) (75-99) mg/dL Plasma Lactic Acid Carloz (0.7-2.0) mmol/L Calcium 6.7 L (8.4-10.2) mg/dL Phosphorus 6.9 H (2.5-4.5) mg/dL Total Bilirubin 6.1 H (0.2-1.3) mg/dL AST 79 H (14-36) U/L ALT 82 H (4-34) U/L Total Protein 4.6 L (6.3-8.2) g/dL Albumin 2.2 L (3.5-5.0) g/dL Crossmatch 05/26/19 05/26/19 05/26/19 Range/Units 05:35 06:14 12:14 WBC (3.8-10.6) k/uL RBC (3.80-5.40) m/uL Hgb (11.4-16.0) gm/dL Hct (34.0-46.0) % RDW (11.5-15.5) % Plt Count (150-450) k/uL PT (9.0-12.0) sec INR (<1.2) APTT (22.0-30.0) sec Fibrinogen (200-500) mg/dL Potassium (3.5-5.1) mmol/L Chloride (98-107) mmol/L Carbon Dioxide (22-30) mmol/L BUN (7-17) mg/dL Creatinine (0.52-1.04) mg/dL Glucose (74-99) mg/dL POC Glucose (mg/dL) 200 H 227 H (75-99) mg/dL Plasma Lactic Acid Carloz 3.5 H* (0.7-2.0) mmol/L Calcium (8.4-10.2) mg/dL Phosphorus (2.5-4.5) mg/dL Total Bilirubin (0.2-1.3) mg/dL AST (14-36) U/L ALT (4-34) U/L Total Protein (6.3-8.2) g/dL Albumin (3.5-5.0) g/dL Crossmatch 05/26/19 05/26/19 Range/Units 14:00 18:23 WBC 0.1 L* (3.8-10.6) k/uL RBC 2.10 L (3.80-5.40) m/uL Hgb 6.6 L* (11.4-16.0) gm/dL Hct 20.2 L (34.0-46.0) % RDW 18.1 H (11.5-15.5) % Plt Count 5 L* (150-450) k/uL PT (9.0-12.0) sec INR (<1.2) APTT (22.0-30.0) sec Fibrinogen (200-500) mg/dL Potassium (3.5-5.1) mmol/L Chloride (98-107) mmol/L Carbon Dioxide (22-30) mmol/L BUN (7-17) mg/dL Creatinine (0.52-1.04) mg/dL Glucose (74-99) mg/dL POC Glucose (mg/dL) 190 H (75-99) mg/dL Plasma Lactic Acid Carloz (0.7-2.0) mmol/L Calcium (8.4-10.2) mg/dL Phosphorus (2.5-4.5) mg/dL Total Bilirubin (0.2-1.3) mg/dL AST (14-36) U/L ALT (4-34) U/L Total Protein (6.3-8.2) g/dL Albumin (3.5-5.0) g/dL Crossmatch Microbiology - Last 24 Hours (Table) 05/25/19 17:18 Blood Culture - Preliminary Blood No Growth after 24 hours 05/24/19 11:45 Blood Culture Gram Stain - Final Blood Blood Culture - Final Klebsiella oxytoca US - abdomen: report reviewed (Small amounts of ascites on ultrasound of the abdomen) Assessment and Plan (1) GI bleed Narrative/Plan: 68-year-old female with multiple medical comorbidities including angioimmunoblastic lymphoma, pancytopenia in the setting of chemotherapy admitted with weakness and currently being treated for gram-negative bacteremia and pancytopenia as well as acute elevation in her creatinine. During her hospitalization the patient had 2 bloody bowel movements while in the ICU today. Last colonoscopy in 2013 with findings of moderate left colonic diverticulosis. Unclear etiology of bleed with differential including bleeding secondary to ischemia, diverticular bleed, hemorrhoidal bleeding, or other etiology EXACERBATED by underlying thrombocytopenia. Current Visit: Yes Status: Acute Code(s): K92.2 - GASTROINTESTINAL HEMORRHAGE, UNSPECIFIED SNOMED Code(s): 93319370 (2) Pancytopenia Current Visit: Yes Status: Acute Code(s): D61.818 - OTHER PANCYTOPENIA SNOMED Code(s): 829564689 (3) Angioimmunoblastic T-cell lymphoma Current Visit: No Status: Acute Priority: High Code(s): C86.5 - ANGIOIMMUNOBLASTIC T-CELL LYMPHOMA SNOMED Code(s): 328887263 Plan: Supportive care Okay for liquid diet Continue to monitor CBC, CMP Continue monitor stool output Continue other management including antibiotic therapy, blood pressure support per ICU infectious disease service Nephrology currently monitoring for acute elevation in creatinine and Defer management of pancytopenia to oncology service at this time Given the patient's severe pancytopenia she is not a candidate for endoscopic evaluation at this time, continue supportive care Thank you for this patient in the care of the patient we will continue to follow
[2019-05-26] MEDS ORDERED: HUMAN PROTHROMBIN COMPLX IV ONE (23:45)
[2019-05-26 23:59] LABS: Glucose,Whole Blood 168 mg/dL (75-99)
[2019-05-27] MEDS: INSULIN ASPART (NovoLOG) 100 UNIT/ML VIAL SQ SCH ×4 (00:10→17:06)
[2019-05-27] MEDS: ALBUMIN HUMAN 25% 50 ML in EMPTY BAG 1 BAG IVPB SCH (02:30)
[2019-05-27] MEDS: SODIUM CHLORIDE 0.9% 1,000 ML IV SCH (03:55)
[2019-05-27 05:55] LABS: Glucose,Whole Blood 154 mg/dL (75-99)
[2019-05-27 05:55] LABS: Anisocytosis Slight; HCT 22.2 % (34.0-46.0); HGB 7.6 gm/dL (11.4-16.0); MCH 32.3 pg (25.0-35.0); MCHC 34.3 g/dL (31.0-37.0); MCV 94.1 fL (80.0-100.0); Mean Platelet Volume 6.7; Poikilocytosis Slight; RBC 2.36 m/uL (3.80-5.40); RDW 17.2 % (11.5-15.5); Reticulocyte % 2.1 % (0.5-2.0)
[2019-05-27 06:03] LABS: INR 1.3 (<1.2); Partial Thromboplastin Time 32.7 sec (22.0-30.0); Prothrombin Time 13.3 sec (9.0-12.0)
[2019-05-27 06:15] LABS: Platelet Count 2 k/uL (150-450); WBC 0.1 k/uL (3.8-10.6)
[2019-05-27 06:23] LABS: Albumin 2.3 g/dL (3.5-5.0); Calcium 6.7 mg/dL (8.4-10.2); Phosphorus 6.4 mg/dL (2.5-4.5); Potassium 4.7 mmol/L (3.5-5.1); Total Protein 4.6 g/dL (6.3-8.2); Uric Acid 2.3 mg/dL (3.7-7.4)
[2019-05-27] MEDS: PANTOPRAZOLE 40 MG/10 ML VIAL IV SCH ×2 (08:55→21:31)
[2019-05-27] MEDS: FUROSEMIDE 10 MG/ML 4 ML VIAL IV SCH ×2 (08:55→21:31)
[2019-05-27] MEDS: LEVOTHYROXINE IVP 100 MCG/5 ML VIAL IV SCH (08:55)
[2019-05-27] MEDS: DEXTROSE 5% IN WATER 1,000 ML with SODIUM BICARB (1 MEQ/ML) 150 ML IV SCH ×2 (08:56→17:07)
[2019-05-27] MEDS ORDERED: HUMAN PROTHROMBIN COMPLX 500 UNIT/16 ML VIAL IV ONE (09:36)
[2019-05-27] MEDS: DEXAMETHASONE SOD PHOSPHATE IV SCH ×2 (10:08)
[2019-05-27] MEDS: WATER IV SCH ×2 (10:08)
[2019-05-27] MEDS: DEXTROSE 5% IV SCH ×2 (10:08)
[2019-05-27] MEDS ORDERED: LORazepam 2 MG/ML INJ IV STA (10:34)
[2019-05-27] MEDS: SODIUM CHLORIDE 0.9% 50 ML with VASOPRESSIN 20 UNIT IVPB SCH ×4 (11:00→11:49)
--- NOTE | 2019-05-27 11:28 | P.PN ---
Subjective Progress Note Date: 05/27/19 Principal diagnosis: This 68-year-old female with sepsis associated acute kidney injury she grew Klebsiella oxytoca and her blood. She is post chemotherapy for T-cell lymphoma follow last approximately 6 weeks. She has significant acidosis hypotension. She is off of levo fed but is on tapering doses of vasopressin She groans and moans all the time for the last 2 or 3 days. Her daughter is a nurse here. Other than this her calcium is low as well Her urine output has been going up slowly. The last 4 hours she is making about 100 mL an hour Objective - Vital Signs Vital signs: Vital Signs Temp 36.4 F L 05/27/19 08:00 Pulse 116 H 05/27/19 10:15 Resp 29 H 05/27/19 10:15 BP 118/72 05/27/19 10:15 Pulse Ox 95 05/27/19 10:15 Intake & Output 05/26/19 05/27/19 05/27/19 18:59 06:59 18:59 Intake Total 9643.941 5961.778 457.423 Output Total 528 1081 510 Balance 1438.899 592.778 -52.577 Weight 109.9 kg Intake: IV 1450 1255 435 Albumin Human 25% 50 ml 50 In Empty Bag 1 bag @ 50 mls/hr IVPB Q12H [facility] Rx#: [id number] Cefepime 2 gm In Sodium 100 Chloride 0.9% 100 ml @ 200 mls/hr IVPB Q24H [facility] Rx#:[id number] Dexamethasone Sod 50 50 Phosphate 40 mg In Dextrose 5% in Water 50 ml @ 100 mls/hr IV DAILY [facility] Rx#:[id number] Dextrose 5% in Water 1, 900 350 000 ml @ 75 mls/hr IV . [id number] ONE with Sodium Bicarb (1 Meq/ml) 150 ml Rx#:[id number] Dextrose 5% in Water 1, 225 225 000 ml @ 75 mls/hr IV . [id number] [facility] with Sodium Bicarb (1 Meq/ml) 150 ml Rx#:[id number] Empty Bag 16.672 bag @ 100 504 mls/hr IV .Q12M ONE with Human Prothrombin Complx 2,604 unit Rx#: [id number] Phytonadione 5 mg In 50 Sodium Chloride 0.9% 50 ml @ 100 mls/hr IVPB ONCE STA Rx#:[id number] Sodium Chloride 0.9% 1, 400 480 160 000 ml @ 40 mls/hr IV . Q24H [facility] Rx#:[id number] Intake, IV Titration 5.899 108.778 22.423 Amount Norepinephrine 8 mg In 5.899 108.778 22.423 Sodium Chloride 0.9% 250 ml @ 0.05 MCG/KG/MIN 9. 216 mls/hr IV .Q24H [facility] Rx#:[id number] Blood Product 511 310 Platelet Irr Pheresis 3 201 Acda Unit [id number] Rc Irr As1 Unit 0 0 [id number] Rc Irr As1 Unit 310 [id number] Output: Urine 528 1080 510 Uretheral (Bess) 100 Stool 1 Other: Voiding Method Indwelling Catheter Indwelling Catheter # Bowel Movements 1 1 On examination she is obtunded arousable opens eyes but groans and moans does not follow commands HEENT exam no JVP neck is supple no facial asymmetry Pupils are equal there is some minor subconjunctival hemorrhage Lungs are clear to auscultation fair air entry Heart sounds are unremarkable normal sinus rhythm Abdomen soft nontender no organomegaly felt Extremity exam was minimal edema Neurologically this oriented and moans and groans difficult to get any response. - Labs CBC & Chem 7: 05/27/19 05:38 05/27/19 05:38 Labs: Abnormal Lab Results - Last 24 Hours (Table) 05/24/19 05/26/19 05/26/19 Range/Units 10:23 12:14 14:00 WBC 0.1 L* (3.8-10.6) k/uL RBC 2.10 L (3.80-5.40) m/uL Hgb 6.6 L* (11.4-16.0) gm/dL Hct 20.2 L (34.0-46.0) % RDW 18.1 H (11.5-15.5) % Plt Count 5 L* (150-450) k/uL Retic Count (0.5-2.0) % PT (9.0-12.0) sec INR (<1.2) APTT (22.0-30.0) sec Chloride (98-107) mmol/L Carbon Dioxide (22-30) mmol/L BUN (7-17) mg/dL Creatinine (0.52-1.04) mg/dL Glucose (74-99) mg/dL POC Glucose (mg/dL) 227 H (75-99) mg/dL Plasma Lactic Acid Carloz (0.7-2.0) mmol/L Uric Acid (3.7-7.4) mg/dL Calcium (8.4-10.2) mg/dL Phosphorus (2.5-4.5) mg/dL Total Bilirubin (0.2-1.3) mg/dL ALT (4-34) U/L Total Protein (6.3-8.2) g/dL Albumin (3.5-5.0) g/dL Crossmatch See Detail 05/26/19 05/26/19 05/27/19 Range/Units 18:23 23:58 05:38 WBC 0.1 L* (3.8-10.6) k/uL RBC 2.36 L (3.80-5.40) m/uL Hgb 7.6 L (11.4-16.0) gm/dL Hct 22.2 L (34.0-46.0) % RDW 17.2 H (11.5-15.5) % Plt Count 2 L* D (150-450) k/uL Retic Count 2.1 H (0.5-2.0) % PT (9.0-12.0) sec INR (<1.2) APTT (22.0-30.0) sec Chloride (98-107) mmol/L Carbon Dioxide (22-30) mmol/L BUN (7-17) mg/dL Creatinine (0.52-1.04) mg/dL Glucose (74-99) mg/dL POC Glucose (mg/dL) 190 H 168 H (75-99) mg/dL Plasma Lactic Acid Carloz (0.7-2.0) mmol/L Uric Acid (3.7-7.4) mg/dL Calcium (8.4-10.2) mg/dL Phosphorus (2.5-4.5) mg/dL Total Bilirubin (0.2-1.3) mg/dL ALT (4-34) U/L Total Protein (6.3-8.2) g/dL Albumin (3.5-5.0) g/dL Crossmatch 05/27/19 05/27/19 05/27/19 Range/Units 05:38 05:38 05:38 WBC (3.8-10.6) k/uL RBC (3.80-5.40) m/uL Hgb (11.4-16.0) gm/dL Hct (34.0-46.0) % RDW (11.5-15.5) % Plt Count (150-450) k/uL Retic Count (0.5-2.0) % PT 13.3 H (9.0-12.0) sec INR 1.3 H (<1.2) APTT 32.7 H (22.0-30.0) sec Chloride 109 H (98-107) mmol/L Carbon Dioxide 20 L (22-30) mmol/L BUN 103 H* (7-17) mg/dL Creatinine 2.68 H (0.52-1.04) mg/dL Glucose 140 H (74-99) mg/dL POC Glucose (mg/dL) (75-99) mg/dL Plasma Lactic Acid Carloz 2.9 H* (0.7-2.0) mmol/L Uric Acid 2.3 L (3.7-7.4) mg/dL Calcium 6.7 L (8.4-10.2) mg/dL Phosphorus 6.4 H (2.5-4.5) mg/dL Total Bilirubin 6.0 H (0.2-1.3) mg/dL ALT 64 H (4-34) U/L Total Protein 4.6 L (6.3-8.2) g/dL Albumin 2.3 L (3.5-5.0) g/dL Crossmatch 05/27/19 Range/Units 05:53 WBC (3.8-10.6) k/uL RBC (3.80-5.40) m/uL Hgb (11.4-16.0) gm/dL Hct (34.0-46.0) % RDW (11.5-15.5) % Plt Count (150-450) k/uL Retic Count (0.5-2.0) % PT (9.0-12.0) sec INR (<1.2) APTT (22.0-30.0) sec Chloride (98-107) mmol/L Carbon Dioxide (22-30) mmol/L BUN (7-17) mg/dL Creatinine (0.52-1.04) mg/dL Glucose (74-99) mg/dL POC Glucose (mg/dL) 154 H (75-99) mg/dL Plasma Lactic Acid Carloz (0.7-2.0) mmol/L Uric Acid (3.7-7.4) mg/dL Calcium (8.4-10.2) mg/dL Phosphorus (2.5-4.5) mg/dL Total Bilirubin (0.2-1.3) mg/dL ALT (4-34) U/L Total Protein (6.3-8.2) g/dL Albumin (3.5-5.0) g/dL Crossmatch Microbiology - Last 24 Hours (Table) 05/25/19 17:18 Blood Culture - Preliminary Blood No Growth after 24 hours 05/24/19 11:45 Blood Culture Gram Stain - Final Blood Blood Culture - Final Klebsiella oxytoca Assessment and Plan Assessment: Impression 1. Acute kidney injury from sepsis with Klebsiella oxytoca. Creatinine continues to worsen although urine output is picking up. So she is in nonoliguric phase of ATN. 2. Significant acidosis, from sepsis. Lactic acid is 2.9. Anion gap is 14. Bicarb is improving from 16-20 on IV bicarb drip. 3. Pancytopenia status post chemotherapy for T-cell lymphoma 4. Significant anemia hemoglobin 7.6 5. Hypocalcemia secondary to low intake and acute kidney injury calcium is 6.7 ionized calcium not available 6. Hyperphosphatemia secondary acute kidney injury 7. GI bleed from low platelet count less than 2000 8. Congestive heart failure Recommendation 1. Maintain IV Lasix every 12 because of the congestive heart failure and blood pressure is maintained 2. Check ionized calcium 3. Continue to maintain inotropes for a map of 65 approximately 4. Based on ionized calcium will give her IV calcium as needed 5. Continue to monitor lytes BUN and creatinine I's and O's
[2019-05-27 11:30] LABS: Glucose,Whole Blood 153 mg/dL (75-99)
[2019-05-27] MEDS: CEFEPIME 2 GM in SODIUM CHLORIDE 0.9% 100 ML IVPB SCH (11:41)
--- NOTE | 2019-05-27 13:56 | P.PN ---
Subjective Progress Note Date: 05/27/19 Principal diagnosis: Septic shock, gram-negative bacteremia, neutropenic sepsis This is a 68-year-old female familiar to my service from her last admission. Patient is known to have history of angioimmunoblastic T-cell lymphoma, receiving chemotherapy by oncology/Dr. Gonzalez. Patient was recently admitted to the hospital with chemotherapy induced pancytopenia and neutropenic fever and sepsis. She was in the hospital for almost 2 weeks. And she was eventually discharged home and advised to follow up with oncology. Since discharge, the patient received again chemotherapy, and her last chemotherapy was last Wednesday. Since Wednesday the patient has been complaining of abdominal pain, weakness, loose stools, and noted her breathing was a bit labored. Patient felt generally weak, unable to get out of bed. She was supposed to see her oncologist today, however considering her multiple constitutional symptoms, patient decided to come to the ER. Patient was felt to have WBC count of 0.1 hemoglobin 6.2 platelets 15 lactic acid 11.6 creatinine 1.79 total bilirubin of 4.3 LDH 280. And she was noted to be hypotensive requiring fluid boluses, and after 3 L of fluids, tamire nt was placed on norepinephrine to be titrated accordingly and possibly will add vasopressin if needed. Chest x-ray showed no evidence of pneumonia. It did show evidence of cardiomegaly and mild left basilar atelectasis. Patient was given broad-spectrum antibiotics by the ER physician including vancomycin and cefepime. And she was admitted to the ICU with the impression of sepsis and septic shock. I evaluated the patient in the ICU, recommended more fluids to be given, reviewed her antibiotics. And I recommended pressors starting with norepinephrine, and to add vasopressin if needed. Patient was on 2 L nasal cannula, O2 saturation was 94%. Blood pressure was 77/44 with a mean of 55. Respiration 25, and heart rate was 125 Reevaluated today on 05/25/2019, patient remains in the intensive care unit, patient is requiring norepinephrine for marginal blood pressure. She is also on vasopressin at 0.03 units per minutes. Being titrated to a mean of 65. Her blood cultures came back positive for gram-negative rods. Final report is pending. Renal functioning seems to be worsening, and she was seen by nephrology on consultation. Her IV fluids was adjusted, and placed on sodium b icarb drip. IV fluid at present is 0.9 normal saline at 75 mL per hour. Her pulmonary status is marginal, however the patient is not clinically ready for intubation and mechanical ventilation. That will likely happen, but at this point she seems to be holding fairly well. Chest x-ray showed pleural parenchymal changes, and mild interstitial edema bilaterally. Patient is still receiving diuretics. Nephrology on the case. Labs were reviewed, continues to have pancytopenia that instead of 0.1 hemoglobin is 5.9 platelets are 3000. Patient is to receive blood and platelets, and she is to be seen by oncology/hematology on the case. Antibiotics campbell, patient remains on vancomycin and cefepime, and she is yet to be seen by infectious disease on consultation. Ultrasound of the abdomen showed mild ascites, not significant enough to consider paracentesis, and her renal ultrasound showed no evidence of hydronephrosis. BUN today is 72 creatinine is 2.22 Reevaluated today on 05/26/2019, patient remains in the ICU, basically about the same. Vancomycin has been discontinued by infectious disease, patient remains on cefepime for her gram-negative bacteremia. Overall the patient is basically about the same, remains on 3 L nasal cannula, O2 saturation is ranging between 94-96%. Lipid more tachypneic today compared to yesterday. Lasix will be given. Patient is developing worsening ascites, chest x-ray is a bit worse with worsening bilateral pleural effusions and atelectasis. Hence I have recommended Lasix to be given today. Continues to have pancytopenia, WBC count is 0.1 hem oglobin is 5.7 platelets remained low at 6000. INR is 1.9. Bicarb is a bit low at 17. And that is being addressed by nephrology on the case. Renal functioning is a bit worse with a BUN of 92 creatinine 2.42. Reevaluated today on 05/27/2019, patient remains in the ICU, being followed by many consultants. Basically about the same, continues to have pancytopenia. Patient received so far4 units of packed RBCs, and 2 units of platelets. Her hemoglobin today is 7.6, and her platelet count is 2000. Hematology is addressing the issue of her blood transfusion. Renal functioning seems to be getting a bit worse, patient continues to have excellent urine output, being followed by nephrology, and she remains on bicarb drip. Patient is comfortable, she is on few liters nasal cannula, O2 saturations 95%. However she seems to be moaning and groaning continuously. But denies being in pain, denies being short of breath. Denies any nausea vomiting.WBC count remains 0.1. Electrolytes are normal BUN is 103 creatinine is 2.68.urine output seems to be improving, he is on diuretics. And she is being followed by nephrology. Objective - Vital Signs Vital signs: Vital Signs Temp 97.3 F L 05/27/19 12:00 Pulse 117 H 05/27/19 13:15 Resp 31 H 05/27/19 13:15 BP 108/54 05/27/19 13:15 Pulse Ox 93 L 05/27/19 13:15 Intake & Output 05/26/19 05/27/19 05/27/19 18:59 06:59 18:59 Intake Total 2886.783 3470.778 827.423 Output Total 528 1081 1036 Balance 1438.899 592.778 -208.577 Weight 109.9 kg Intake: IV 1450 1255 805 Albumin Human 25% 50 ml 50 In Empty Bag 1 bag @ 50 mls/hr IVPB Q12H ADITI Rx#: [id number] Cefepime 2 gm In Sodium 100 100 Chloride 0.9% 100 ml @ 200 mls/hr IVPB Q24H ADITI Rx#:[id number] Dexamethasone Sod 50 50 Phosphate 40 mg In Dextrose 5% in Water 50 ml @ 100 mls/hr IV DAILY ADITI Rx#:[id number] Dextrose 5% in Water 1, 900 350 000 ml @ 75 mls/hr IV . [id number] ONE with Sodium Bicarb (1 Meq/ml) 150 ml Rx#:[id number] Dextrose 5% in Water 1, 225 375 000 ml @ 75 mls/hr IV . [id number] ADITI with Sodium Bicarb (1 Meq/ml) 150 ml Rx#:[id number] Empty Bag 16.672 bag @ 100 504 mls/hr IV .Q12M ONE with Human Prothrombin Complx 2,604 unit Rx#: [id number] Phytonadione 5 mg In 50 Sodium Chloride 0.9% 50 ml @ 100 mls/hr IVPB ONCE STA Rx#:[id number] Sodium Chloride 0.9% 1, 400 480 280 000 ml @ 40 mls/hr IV . Q24H ADITI Rx#:[id number] Intake, IV Titration 5.899 108.778 22.423 Amount Norepinephrine 8 mg In 5.899 108.778 22.423 Sodium Chloride 0.9% 250 ml @ 0.05 MCG/KG/MIN 9. 216 mls/hr IV .Q24H ADITI Rx#:[id number] Blood Product 511 310 Platelet Irr Pheresis 3 201 Acda Unit [id number] Rc Irr As1 Unit 0 0 [id number] Rc Irr As1 Unit 310 [id number] Output: Urine 528 1080 1035 Uretheral (Bess) 200 Stool 1 1 Other: Voiding Method Indwelling Catheter Indwelling Catheter Indwelling Catheter # Bowel Movements 1 1 - Exam General appearance: Revealed a 68-year-old female, looks frail, weak, mostly moaning but denies any other symptoms Head exam: Atraumatic, normocephalic. Eye exam: . PERRLA, EOMI, minimal icterus noted. ENT exam: Dry mucous membranes otherwise unremarkable. Neck exam: Positive right posterior cervical lymphadenopathy noted. Respiratory exam: Symmetrical chest expansion, diminished breath sounds and crackles at the bases. Cardiovascular Exam: Tachycardic, Normal S1 and S2, no S3 gallop, no murmur. GI/Abdominal exam: obese,Soft nontender no megaly no rebound no guarding. Positive ascites. Extremities exam: 3+ bipedal edema, good pulses bilaterally. Neurological exam: Alert oriented 3, no gross focal deficits. Psychiatric exam: Normal mood blunt affect normal mental status examination Skin exam: No clubbing 3+ bipedal edema no cyanosis. - Labs CBC & Chem 7: 05/27/19 05:38 05/27/19 05:38 Labs: Abnormal Lab Results - Last 24 Hours (Table) 05/24/19 05/26/19 05/26/19 Range/Units 10:23 14:00 18:23 WBC 0.1 L* (3.8-10.6) k/uL RBC 2.10 L (3.80-5.40) m/uL Hgb 6.6 L* (11.4-16.0) gm/dL Hct 20.2 L (34.0-46.0) % RDW 18.1 H (11.5-15.5) % Plt Count 5 L* (150-450) k/uL Retic Count (0.5-2.0) % PT (9.0-12.0) sec INR (<1.2) APTT (22.0-30.0) sec Chloride (98-107) mmol/L Carbon Dioxide (22-30) mmol/L BUN (7-17) mg/dL Creatinine (0.52-1.04) mg/dL Glucose (74-99) mg/dL POC Glucose (mg/dL) 190 H (75-99) mg/dL Plasma Lactic Acid Carloz (0.7-2.0) mmol/L Uric Acid (3.7-7.4) mg/dL Calcium (8.4-10.2) mg/dL Phosphorus (2.5-4.5) mg/dL Total Bilirubin (0.2-1.3) mg/dL ALT (4-34) U/L Total Protein (6.3-8.2) g/dL Albumin (3.5-5.0) g/dL Crossmatch See Detail 05/26/19 05/27/19 05/27/19 Range/Units 23:58 05:38 05:38 WBC 0.1 L* (3.8-10.6) k/uL RBC 2.36 L (3.80-5.40) m/uL Hgb 7.6 L (11.4-16.0) gm/dL Hct 22.2 L (34.0-46.0) % RDW 17.2 H (11.5-15.5) % Plt Count 2 L* D (150-450) k/uL Retic Count 2.1 H (0.5-2.0) % PT (9.0-12.0) sec INR (<1.2) APTT (22.0-30.0) sec Chloride 109 H (98-107) mmol/L Carbon Dioxide 20 L (22-30) mmol/L BUN 103 H* (7-17) mg/dL Creatinine 2.68 H (0.52-1.04) mg/dL Glucose 140 H (74-99) mg/dL POC Glucose (mg/dL) 168 H (75-99) mg/dL Plasma Lactic Acid Carloz (0.7-2.0) mmol/L Uric Acid 2.3 L (3.7-7.4) mg/dL Calcium 6.7 L (8.4-10.2) mg/dL Phosphorus 6.4 H (2.5-4.5) mg/dL Total Bilirubin 6.0 H (0.2-1.3) mg/dL ALT 64 H (4-34) U/L Total Protein 4.6 L (6.3-8.2) g/dL Albumin 2.3 L (3.5-5.0) g/dL Crossmatch 05/27/19 05/27/19 05/27/19 Range/Units 05:38 05:38 05:53 WBC (3.8-10.6) k/uL RBC (3.80-5.40) m/uL Hgb (11.4-16.0) gm/dL Hct (34.0-46.0) % RDW (11.5-15.5) % Plt Count (150-450) k/uL Retic Count (0.5-2.0) % PT 13.3 H (9.0-12.0) sec INR 1.3 H (<1.2) APTT 32.7 H (22.0-30.0) sec Chloride (98-107) mmol/L Carbon Dioxide (22-30) mmol/L BUN (7-17) mg/dL Creatinine (0.52-1.04) mg/dL Glucose (74-99) mg/dL POC Glucose (mg/dL) 154 H (75-99) mg/dL Plasma Lactic Acid Carloz 2.9 H* (0.7-2.0) mmol/L Uric Acid (3.7-7.4) mg/dL Calcium (8.4-10.2) mg/dL Phosphorus (2.5-4.5) mg/dL Total Bilirubin (0.2-1.3) mg/dL ALT (4-34) U/L Total Protein (6.3-8.2) g/dL Albumin (3.5-5.0) g/dL Crossmatch 05/27/19 Range/Units 11:29 WBC (3.8-10.6) k/uL RBC (3.80-5.40) m/uL Hgb (11.4-16.0) gm/dL Hct (34.0-46.0) % RDW (11.5-15.5) % Plt Count (150-450) k/uL Retic Count (0.5-2.0) % PT (9.0-12.0) sec INR (<1.2) APTT (22.0-30.0) sec Chloride (98-107) mmol/L Carbon Dioxide (22-30) mmol/L BUN (7-17) mg/dL Creatinine (0.52-1.04) mg/dL Glucose (74-99) mg/dL POC Glucose (mg/dL) 153 H (75-99) mg/dL Plasma Lactic Acid Carloz (0.7-2.0) mmol/L Uric Acid (3.7-7.4) mg/dL Calcium (8.4-10.2) mg/dL Phosphorus (2.5-4.5) mg/dL Total Bilirubin (0.2-1.3) mg/dL ALT (4-34) U/L Total Protein (6.3-8.2) g/dL Albumin (3.5-5.0) g/dL Crossmatch Microbiology - Last 24 Hours (Table) 05/25/19 17:18 Blood Culture - Preliminary Blood No Growth after 24 hours 05/24/19 11:45 Blood Culture Gram Stain - Final Blood Blood Culture - Final Klebsiella oxytoca Assessment and Plan Assessment: Impression: Septic shock, gram-negative bacteremia,/Klebsiella oxytoca, neutropenic sepsis with lactic acidosis, hypotension requiring pressors, and acute kidney injury. Pancytopenia secondary to chemotherapy/chemotherapy-induced Acute kidney injury T-cell lymphoma History of hemolytic anemia Type 2 diabetes History of hypertension Hypothyroidism History of tumor lysis syndrome Recurrent ascites and hepatocellular liver disease with jaundice lower GI bleeding, being addressed by gastroenterology on the case Recommendation: Close monitoring in the ICU. Continue antibiotics in the form of cefepime, Continue IV fluids Continue pressors as needed, titrate to a mean arterial pressure of 60 or higher. Transfuse blood products including packed RBCs and platelets as they are hematology on the case. GI prophylaxis. And DVT prophylaxis. However no heparin, no anticoagulation products. updated her daughter on her condition today, we'll try small doses of Ativan for her ongoing moaning and groaning. We'll continue to follow, not quite ready to be transferred out of the ICU. Prognosis is definitely poor and guarded. Time with Patient: Less than 30
[2019-05-27 14:15] VITALS: BMI 41.5
--- NOTE | 2019-05-27 15:04 | P.CRDCN ---
History of Present Illness Consult date: 05/27/19 History of present illness: This is very unfortunate 68-year-old female patient with a past medical history significant for aggressive T-cell lymphoma where the patient was receiving chemotherapy with multiple hospital admission with pancytopenia related to chemotherapy. This time the patient was admitted to the hospital with chemotherapy-induced pancytopenia complicated by fever and sepsis. She did have positive blood culture. Currently the patient does have mental status change and she is almost nonresponsive. The history was taken from the chart as well as from her daughter and her , both were bedside. The patient does not have any history of coronary artery disease or congestive heart failure or any cardiac arrhythmia in the past. She does have hypertension as well as newly diagnosed his diabetes. Currently the patient is unstable and she is on norepinephrine. We consulted to see her this time because of cardiac arrhythmia with an EKG showing atrial flutter/SVT. This is a new diagnosis the patient. I am going to start her on amiodarone was bolus and drip. Continue supporting the blood pressure was norepinephrine. Beside that the patient seems to be in multifocal failure. She is in acute renal failure. She underwent an echocar diogram in April 2019 and that revealed normal LV function without any significant valvular abnormalities. Past Medical History Past Medical History: Cancer, Diabetes Mellitus, Hyperlipidemia, Hypertension, Thyroid Disorder Additional Past Medical History / Comment(s): Pt states she was told 04/18/19 that she has lymphoma-no treatment plan yet, recent hands/legs/feet edema, 2009 R breast cancer with lumpectomy and radiation treatments, NIDDM type II, hypothyroid, diverticular disease History of Any Multi-Drug Resistant Organisms: None Reported Past Surgical History: Breast Surgery, Section, Hysterectomy Additional Past Surgical History / Comment(s): 04/12/19 R supraclavicular lymph node core biopsy, right breast lumpectomy, colonoscopy Past Anesthesia/Blood Transfusion Reactions: No Reported Reaction Past Psychological History: No Psychological Hx Reported Smoking Status: Never smoker Past Alcohol Use History: Rare Additional Past Alcohol Use History / Comment(s): Pt resides with her spouse. She is independent. She states lately though, she has not been driving, her spouse has been doing the driving. Past Drug Use History: None Reported - Past Family History Father Family Medical History: Myocardial Infarction ([place]) Additional Family Medical History / Comment(s): [place] times 2-first TX at the age of 35yrs and from 2nd TX at the age of age 52 Mother Family Medical History: Cancer Additional Family Medical History / Comment(s): Mother of pancreatic cancer in her 70s. Brother(s) History Unknown: Yes Sister(s) Family Medical History: Cancer Additional Family Medical History / Comment(s): Patient has 2 sisters one of them with breast cancer. Daughter(s) Family Medical History: No Reported History Additional Family Medical History / Comment(s): Patient has one daughter who is an ICU nurse no major medical problems. Son(s) Family Medical History: No Reported History Additional Family Medical History / Comment(s): Patient has one son no major medical problems. Medications and Allergies Home Medications Medication Instructions Recorded Confirmed Type Levothyroxine Sodium [Levoxyl] 50 mcg PO DAILY 04/03/19 05/24/19 History Ibuprofen [Motrin] 800 mg PO TID PRN 04/19/19 05/24/19 History Venlafaxine HCl [Effexor] 75 mg PO HS 04/19/19 05/24/19 History Loratadine [Claritin] 10 mg PO DAILY 05/03/19 05/24/19 History Furosemide [Lasix] 40 mg PO BID #60 tablet 05/12/19 05/24/19 Rx Melatonin 6 mg PO HS PRN tablet 05/12/19 05/24/19 Rx Nystatin 100,000 Unit/ml Susp 5 ml PO 5XD #45 cup 05/12/19 05/24/19 Rx [Mycostatin Oral Susp] Spironolactone [Aldactone] 25 mg PO DAILY #30 tab 05/12/19 05/24/19 Rx metFORMIN HCL 1,000 mg PO BID #60 tab 05/12/19 05/24/19 Rx sitaGLIPtin PHOSPHATE [Januvia] 50 mg PO DAILY #30 tab 05/12/19 05/24/19 Rx Lidocaine Viscous [Xylocaine 30 ml PO 5XD #45 dose 05/13/19 05/24/19 Rx Viscous 2%] Fexofenadine/Pseudoephedrine 1 tab PO BID PRN 05/24/19 05/24/19 History [Marimar-D 12 Hour Tablet] Lidocaine-Prilocaine Cream [Emla 1 applic TOPICAL DAILY PRN 05/24/19 05/24/19 History Cream 2.5%/2.5%] predniSONE 100 mg PO DIRECTED 05/24/19 05/24/19 History Allergies Allergy/AdvReac Type Severity Reaction Status Date / Time Penicillins Allergy Unknown Rash/Hives Verified 05/24/19 11:15 Physical Exam Vitals: Vital Signs Temp Pulse Resp BP Pulse Ox 05/27/19 13:15 117 H 31 H 108/54 93 L 05/27/19 13:00 121 H 39 H 115/56 94 L 05/27/19 12:45 123 H 38 H 112/61 93 L 05/27/19 12:30 123 H 36 H 119/67 93 L 05/27/19 12:15 120 H 32 H 117/63 92 L 05/27/19 12:00 97.3 F L 117 H 31 H 116/55 94 L 05/27/19 11:45 116 H 28 H 117/55 94 L 05/27/19 11:30 116 H 35 H 114/61 93 L 05/27/19 11:15 116 H 27 H 113/54 94 L 05/27/19 11:00 121 H 29 H 114/58 94 L 05/27/19 10:45 118 H 26 H 126/58 95 05/27/19 10:30 118 H 28 H 123/69 94 L 05/27/19 10:15 116 H 29 H 118/72 95 05/27/19 10:00 120 H 30 H 113/64 94 L 05/27/19 09:45 121 H 33 H 115/77 93 L 05/27/19 09:30 117 H 39 H 111/79 93 L 05/27/19 09:15 117 H 33 H 118/57 96 05/27/19 09:00 115 H 24 120/68 95 05/27/19 08:45 125 H 26 H 118/66 93 L 05/27/19 08:30 115 H 25 H 124/64 94 L 05/27/19 08:15 121 H 33 H 123/73 92 L 05/27/19 08:00 97.5 F L 115 H 27 H 112/70 93 L 05/27/19 07:45 116 H 42 H 121/72 92 L 05/27/19 07:30 114 H 15 125/65 92 L 01/18/20 07:15 114 H 13 122/64 92 L 18/20 07:00 113 H 33 H 115/57 91 L 18/20 06:45 114 H 39 H 118/66 94 L 18/20 06:30 115 H 31 H 114/60 93 L 18/20 06:15 112 H 23 116/61 94 L 18/20 06:00 112 H 24 114/65 93 L 18/20 05:45 115 H 37 H 102/90 92 L 18/20 05:30 118 H 16 100/78 90 L 18/20 05:15 114 H 38 H 97/76 92 L 18/20 05:00 113 H 27 H 112/57 92 L 18/20 04:45 114 H 39 H 115/64 92 L 18/20 04:30 113 H 32 H 112/57 93 L /18/20 04:15 111 H 31 H 111/78 93 L 18/20 04:00 97.3 F L 112 H 35 H 91/67 92 L 18/20 03:45 113 H 34 H 101/68 92 L /18/20 03:30 110 H 28 H 117/84 93 L /18/20 03:15 112 H 12 109/68 93 L 18/20 03:00 112 H 21 108/72 92 L 18/20 02:59 91 L 18/20 02:45 117 H 35 H 111/75 93 L /18/20 02:30 110 H 23 112/68 93 L /18/20 02:15 111 H 34 H 112/78 93 L 18/20 02:00 112 H 33 H 114/72 93 L /18/20 01:45 111 H 36 H 110/82 92 L /18/20 01:30 109 H 33 H 113/80 92 L /18/20 01:15 110 H 34 H 108/67 93 L /18/20 01:00 109 H 30 H 115/62 93 L /18/20 00:45 111 H 38 H 103/73 93 L /18/20 00:30 111 H 38 H 112/55 94 L /18/20 00:15 109 H 36 H 119/64 93 L 05/27/19 00:00 97.3 F L 109 H 36 H 117/64 92 L 05/26/19 23:45 107 H 30 H 117/59 95 05/26/19 23:30 110 H 23 109/81 93 L 05/26/19 23:15 108 H 36 H 115/68 95 05/26/19 23:04 107 H 35 H 115/68 95 05/26/19 23:00 108 H 21 104/68 96 05/26/19 22:45 106 H 32 H 104/74 95 05/26/19 22:30 105 H 26 H 114/62 95 05/26/19 22:15 106 H 29 H 104/71 96 05/26/19 22:00 105 H 30 H 114/71 94 L 05/26/19 21:45 106 H 36 H 113/64 96 05/26/19 21:30 109 H 38 H 112/75 95 05/26/19 21:15 106 H 32 H 115/60 95 05/26/19 21:00 106 H 30 H 113/73 94 L 05/26/19 20:45 105 H 44 H 106/66 96 05/26/19 20:32 97.5 F L 107 H 24 106/66 95 05/26/19 20:30 105 H 28 H 102/73 95 05/26/19 20:15 107 H 29 H 112/65 94 L 05/26/19 20:00 96.8 F L 105 H 35 H 115/66 94 L 05/26/19 19:45 105 H 35 H 111/68 95 05/26/19 19:30 97.5 F L 105 H 33 H 113/74 95 05/26/19 19:15 71 H 95 05/26/19 19:00 106 H 36 H 109/65 95 05/26/19 18:45 104 H 24 97/63 96 05/26/19 18:35 97.5 F L 105 H 29 H 101/62 05/26/19 18:30 110 H 26 H 105/60 93 L 05/26/19 18:15 107 H 33 H 104/66 93 L 05/26/19 18:05 97.4 F L 103 H 31 H 107/65 05/26/19 18:00 105 H 33 H 109/69 94 L 05/26/19 17:55 97.5 F L 104 H 38 H 109/69 05/26/19 17:45 99 28 H 107/62 94 L 05/26/19 17:30 107 H 36 H 108/75 94 L 05/26/19 17:15 105 H 38 H 99/70 93 L 05/26/19 17:11 97.5 F L 105 H 32 H 108/75 05/26/19 17:00 105 H 35 H 113/67 95 05/26/19 16:45 102 H 32 H 102/62 95 05/26/19 16:41 96.7 F L 105 H 22 113/67 95 05/26/19 16:31 96 F L 101 H 22 102/62 95 05/26/19 16:30 101 H 24 101/66 95 05/26/19 16:15 104 H 25 H 107/65 94 L 05/26/19 16:00 97.2 F L 105 H 30 H 102/62 94 L 05/26/19 15:45 103 H 25 H 106/69 94 L 05/26/19 15:30 104 H 30 H 107/66 95 05/26/19 15:15 103 H 24 106/58 96 Intake and Output 05/27/19 05/27/19 05/27/19 06:59 14:59 22:59 Intake Total 928.514 827.423 Output Total 741 1036 Balance 187.514 -208.577 Intake: IV 895 805 Albumin Human 25% 50 ml 50 In Empty Bag 1 bag @ 50 mls/hr IVPB Q12H [facility] Rx#: [id number] Cefepime 2 gm In Sodium 100 Chloride 0.9% 100 ml @ 200 mls/hr IVPB Q24H [facility] Rx#:[id number] Dexamethasone Sod 50 Phosphate 40 mg In Dextrose 5% in Water 50 ml @ 100 mls/hr IV DAILY [facility] Rx#:[id number] Dextrose 5% in Water 1, 200 000 ml @ 75 mls/hr IV . [id number] ONE with Sodium Bicarb (1 Meq/ml) 150 ml Rx#:[id number] Dextrose 5% in Water 1, 225 375 000 ml @ 75 mls/hr IV . [id number] [facility] with Sodium Bicarb (1 Meq/ml) 150 ml Rx#:[id number] Empty Bag 16.672 bag @ 100 504 mls/hr IV .Q12M ONE with Human Prothrombin Complx 2,604 unit Rx#: [id number] Sodium Chloride 0.9% 1, 320 280 000 ml @ 40 mls/hr IV . Q24H [facility] Rx#:[id number] Intake, IV Titration 33.514 22.423 Amount Norepinephrine 8 mg In 33.514 22.423 Sodium Chloride 0.9% 250 ml @ 0.05 MCG/KG/MIN 9. 216 mls/hr IV .Q24H [facility] Rx#:[id number] Output: Urine 740 1035 Uretheral (Bess) 200 Stool 1 1 Other: Voiding Method Indwelling Catheter Indwelling Catheter # Bowel Movements 1 Weight 109.9 kg 109.9 kg - Constitutional General appearance: no acute distress - Respiratory Respiratory: bilateral: diminished - Cardiovascular Rhythm: regular Heart sounds: normal: S1, S2 Results 05/27/19 05:38 05/27/19 05:38 Cardiac Enzymes 05/27/19 Range/Units 05:38 AST 29 (14-36) U/L Coagulation 05/27/19 Range/Units 05:38 PT 13.3 H (9.0-12.0) sec APTT 32.7 H (22.0-30.0) sec CBC 05/26/19 05/27/19 Range/Units 14:00 05:38 WBC 0.1 L* 0.1 L* (3.8-10.6) k/uL RBC 2.10 L 2.36 L (3.80-5.40) m/uL Hgb 6.6 L* 7.6 L (11.4-16.0) gm/dL Hct 20.2 L 22.2 L (34.0-46.0) % Plt Count 5 L* 2 L* D (150-450) k/uL Comprehensive Metabolic Panel 05/27/19 Range/Units 05:38 Sodium 143 (137-145) mmol/L Potassium 4.7 (3.5-5.1) mmol/L Chloride 109 H (98-107) mmol/L Carbon Dioxide 20 L (22-30) mmol/L BUN 103 H* (7-17) mg/dL Creatinine 2.68 H (0.52-1.04) mg/dL Glucose 140 H (74-99) mg/dL Calcium 6.7 L (8.4-10.2) mg/dL AST 29 (14-36) U/L ALT 64 H (4-34) U/L Alkaline Phosphatase 44 (38-126) U/L Total Protein 4.6 L (6.3-8.2) g/dL Albumin 2.3 L (3.5-5.0) g/dL Current Medications Generic Name Dose Route Start Last Admin Trade Name Freq PRN Reason Stop Dose Admin Acetaminophen 650 mg 05/24/19 12:14 05/25/19 20:55 Tylenol Tab PO 650 mg Q6HR PRN Administration Mild Pain or Fever > 100.5 Furosemide 40 mg 05/26/19 21:00 05/27/19 08:55 Lasix IV 40 mg Q12HR [facility] Administration Sodium Chloride 1,000 mls @ 40 mls/hr 05/24/19 12:15 05/27/19 03:55 Saline 0.9% IV 40 mls/hr .Q24H [facility] Administration Cefepime HCl 2 gm/ Sodium 100 mls @ 200 mls/hr 05/25/19 12:00 05/27/19 11:41 Chloride IVPB 200 mls/hr Q24H [facility] Administration Norepinephrine Bitartrate 8 mg 258 mls @ 9.216 mls/hr 05/24/19 15:45 05/27/19 08:50 / Sodium Chloride IV 0 mcg/kg/min .Q24H [facility] 0 mls/hr Titration Protocol 0.05 MCG/KG/MIN Vasopressin 20 unit/ Sodium 51 mls @ 4.59 mls/hr 05/24/19 17:30 05/27/19 11:49 Chloride IVPB 1.5 mls/hr .Q11H7M [facility] Administration 0.03 UNITS/MIN Dexamethasone Sodium Phosphate 54 mls @ 100 mls/hr 05/25/19 10:00 05/27/19 10:08 40 mg/ Dextrose/Water IV 05/28/19 09:33 100 mls/hr DAILY [facility] Administration Sodium Bicarbonate 150 ml/ 1,150 mls @ 75 mls/hr 05/26/19 07:30 05/27/19 08: 56 Dextrose/Water IV 75 mls/hr .[id number] [facility] Administration Insulin Aspart 0 unit 05/25/19 06:00 05/27/19 11:41 Novolog SQ 2 unit Q6H [facility] Administration Protocol Levothyroxine Sodium 25 mcg 05/25/19 09:00 05/27/19 08:55 Synthroid Ivp IV 25 mcg DAILY [facility] Administration Miscellaneous Information 1 each 05/26/19 23:42 Kcentra Per Pharmacy MISCELLANE DIRECTED PRN Bleeding Protocol Naloxone HCl 0.2 mg 05/24/19 12:14 Narcan IV Q2M PRN Opioid Reversal Ondansetron HCl 4 mg 05/24/19 12:14 Zofran IVP Q8HR PRN Nausea And Vomiting Pantoprazole Sodium 40 mg 05/26/19 21:00 05/27/19 08:55 Protonix IV 40 mg BID [facility] Administration Venlafaxine HCl 75 mg 05/24/19 21:00 05/26/19 21:00 Effexor PO Not Given HS [facility] Intake and Output 05/27/19 05/27/19 05/27/19 06:59 14:59 22:59 Intake Total 928.514 827.423 Output Total 741 1036 Balance 187.514 -208.577 Intake: IV 895 805 Albumin Human 25% 50 ml 50 In Empty Bag 1 bag @ 50 mls/hr IVPB Q12H [facility] Rx#: [id number] Cefepime 2 gm In Sodium 100 Chloride 0.9% 100 ml @ 200 mls/hr IVPB Q24H [facility] Rx#:[id number] Dexamethasone Sod 50 Phosphate 40 mg In Dextrose 5% in Water 50 ml @ 100 mls/hr IV DAILY [facility] Rx#:[id number] Dextrose 5% in Water 1, 200 000 ml @ 75 mls/hr IV . [id number] ONE with Sodium Bicarb (1 Meq/ml) 150 ml Rx#:[id number] Dextrose 5% in Water 1, 225 375 000 ml @ 75 mls/hr IV . [id number] [facility] with Sodium Bicarb (1 Meq/ml) 150 ml Rx#:[id number] Empty Bag 16.672 bag @ 100 504 mls/hr IV .Q12M ONE with Human Prothrombin Complx 2,604 unit Rx#: [id number] Sodium Chloride 0.9% 1, 320 280 000 ml @ 40 mls/hr IV . Q24H [facility] Rx#:[id number] Intake, IV Titration 33.514 22.423 Amount Norepinephrine 8 mg In 33.514 22.423 Sodium Chloride 0.9% 250 ml @ 0.05 MCG/KG/MIN 9. 216 mls/hr IV .Q24H [facility] Rx#:[id number] Output: Urine 740 1035 Uretheral (Bess) 200 Stool 1 1 Other: Voiding Method Indwelling Catheter Indwelling Catheter # Bowel Movements 1 Weight 109.9 kg 109.9 kg Patient Weight 05/28/19 06:59 Weight 109.9 kg 05/27/19 05:38 05/27/19 05:38 Assessment and Plan Assessment: Assessment #1 septic shock #2 multi-organ failure #3 pancytopenia #4 atrial fibrillation with RVR #5 multiple comorbid conditions Plan #1 start the patient on amiodarone was bolus and drip #2 continue supporting the blood pressure #3 the echo from April revealed normal LV function #4 follow-up with the patient
[2019-05-27] MEDS ORDERED: AMIODARONE 360 MG in DEXTROSE 5% IN WATER 200 ML IV ONE ×2 (15:30)
[2019-05-27] MEDS ORDERED: DEXTROSE 5% IN WATER 100 ML with AMIODARONE 150 MG IV ONE (15:30)
[2019-05-27 17:04] LABS: Glucose,Whole Blood 142 mg/dL (75-99)
--- NOTE | 2019-05-27 17:04 | P.PN ---
Subjective Progress Note Date: 05/27/19 This is a 68-year-old female patient Dr. Gaffney with a previous medical history for hypertension and hypertensive cardiovascular disease, hyperlipidemia, new diagnosis of diabetes mellitus type 2, history of breast cancer status post right lumpectomy with radiation therapy, diverticulosis, hypothyroidism, agioimmunoblastic T-cell lymphoma CD30 under the care of Dr. Gonzalez, history of tumor lysis syndrome. Patient's had a recent hospitalization at the end of April which time she presented with jaundice following her first cycle of chemotherapy. Patient was admitted into the intensive care unit for neutropenic sepsis and lactic acidosis, severe pancytopenia. Patient was discharged home with VNA. Patient subsequently underwent additional chemotherapy and had followed up with Dr. Gonzalez and had lab work done in the office and hemoglobin on Wednesday was 7.6. Patient's states he thought she was doing well after the last chemotherapy treatments. Wednesday she did have some complaints of abdominal pain which they thought was related to the fish that she ate. Last evening she got to the bathroom several times and her breathing seemed to be labored. Patient did not have any vomiting. Patient had weakness all over her body was unable to get out of bed They were due today to see Felisa in [place] for consultation. Patient has experienced some edema to the abdomen: The legs that is better than last admission. No rashes. Patient's face is flushed. No specific jaundice is noted on this admission. Patient denies having any cough. Temperature maximum was 100.0. Patient presented to [facility] emergency center for evaluation found to have a WBC count of 0.1, hemoglobin 6.2 and platelet count 15, lactic acid 11.6, BUN 65, creatinine 1.79, total bilirubin 4.3, AST 24, ALT 36, alkaline phosphatase 59, LDH 280, troponin 0.058. Total bilirubin 4.3, conjugated bilirubin 0.6, unconjugated bilirubin 2.1, delta bilirubin 1.6. TSH 1.190. blood pressure 89/44, heart rate 128, pulse ox 96%. Chest x-ray reveals persistent low lung volumes. Persistent cardiomegaly and central vascular congestion and left lateral basal acute atelectasis and or infiltrate. No significant change from recent chest x-ray. CAT scan of the brain showed no acute intracranial hemorrhage or midline shift. Mild diffuse age-related cerebral atrophy and chronic small vessel ischemic change. Oncology has ordered dexamethasone, immunoglobulin. Patient was given 1 dose of cefepime and vancomycin. Status post vitamin K. She is waiting for an ICU bed. Consults for Dr. Byrd and Dr. Beltran. 05/25: Patient is seen today in the intensive care unit. She is currently on vasopressin and norepinephrine. She is status post total of 2 units of packed RBCs and 1 unit of platelets. Patient has decreased mental status and continue lethargy and weakness. Patient is not been eating. She has generalized anasarca and albumin IV will be ordered. Patient denies having any pain as well as family denies pain. Blood culture positive for gram-negative rods and consult added for Dr. Corral. Patient is currently on cefepime and vancomycin. Urine output has been 0-5 mL per hour. Lab work prior to last unit of packed RBCs and platelet counts revealed WBC 0.1, hemoglobin 5.9, platelet count 3. BUN 72 and creatinine 2.22, lactic acid 7.9, blood sugars 83-114. Uric acid 8.3, calcium 7.3, phosphorus 5.3, magnesium 1.8, total bilirubin 5.9, AST 99, ALT 49, alkaline phosphatase 55, albumin 2.0. Influenza testing was negative, urinalysis dark brown, cloudy. 05/26: Patient remains in intensive care unit. She was given 80 mg of IV Lasix this morning with little urine output. We will add in Lasix 40 mg IV every 12 hours. Conrado wraps for lower extremity edema. She is continued on sodium bicarb drip, norepinephrine and vasopressin. Patient denies having any chest pain. Positive shortness of breath. She is currently on vasopressin, norepinephrine and bicarb drip. Norepinephrine has been on and off over the past 24 hours. Patient has been afebrile, heart rate 107, respiratory rate 36, blood pressure 103/68, pulse ox 94% on 3 L nasal cannula. Repeat lab work reveals WBC unchanged at 0.1, hemoglobin is 5.7, platelet count is 6, BUN 92 and creatinine 2.42. Blood sugars running between 172 and 227. Lactic acid 3.5. Patient is currently on insulin NovoLog scale every 6 hours. She received transfusion of one unit of packed RBCs this morning for total of 3 units on this hospitalization. Patient is scheduled for 2 units of platelets which will make a total of 3 units transfused on this hospitalization. She did take in little ice chips last evening. Patient will be placed on clear liquid diet plus protein supplements. Oncology continues Decadron IV piggyback and added Elitek 6 mg IV once. There is a new consult added for GI regarding lower GI bleed. 05/27: Patient remains in intensive care unit. Patient is moaning and groaning constantly. Patient continues to have significant pancytopenia without improvement despite transfusions of packed RBCs and platelets, etc. Hemoglobin is 7.6, platelet count 2. She is continued on a bicarb drip. Urine output slightly better today. BUN 103, creatinine 2.68, CO2 20. Patient remains on bicarb gtt. She is currently off levo fed. A cardiology consult has been added today and patient was started on amiodarone bolus and drip for atrial fibrillation with RVR. Review of Systems unable to obtain due to mental status Objective - Vital Signs Vital signs: Vital Signs Temp 97.3 F L 05/27/19 12:00 Pulse 117 H 05/27/19 13:15 Resp 31 H 05/27/19 13:15 BP 108/54 05/27/19 13:15 Pulse Ox 93 L 05/27/19 13:15 Intake & Output 05/26/19 05/27/19 05/27/19 18:59 06:59 18:59 Intake Total 3488.149 1153.778 827.423 Output Total 528 1081 1036 Balance 1438.899 592.778 -208.577 Weight 109.9 kg Intake: IV 1450 1255 805 Albumin Human 25% 50 ml 50 In Empty Bag 1 bag @ 50 mls/hr IVPB Q12H [facility] Rx#: [id number] Cefepime 2 gm In Sodium 100 100 Chloride 0.9% 100 ml @ 200 mls/hr IVPB Q24H [facility] Rx#:[id number] Dexamethasone Sod 50 50 Phosphate 40 mg In Dextrose 5% in Water 50 ml @ 100 mls/hr IV DAILY [facility] Rx#:[id number] Dextrose 5% in Water 1, 900 350 000 ml @ 75 mls/hr IV . [id number] ONE with Sodium Bicarb (1 Meq/ml) 150 ml Rx#:[id number] Dextrose 5% in Water 1, 225 375 000 ml @ 75 mls/hr IV . [id number] [facility] with Sodium Bicarb (1 Meq/ml) 150 ml Rx#:[id number] Empty Bag 16.672 bag @ 100 504 mls/hr IV .Q12M ONE with Human Prothrombin Complx 2,604 unit Rx#: [id number] Phytonadione 5 mg In 50 Sodium Chloride 0.9% 50 ml @ 100 mls/hr IVPB ONCE STA Rx#:[id number] Sodium Chloride 0.9% 1, 400 480 280 000 ml @ 40 mls/hr IV . Q24H [facility] Rx#:[id number] Intake, IV Titration 5.899 108.778 22.423 Amount Norepinephrine 8 mg In 5.899 108.778 22.423 Sodium Chloride 0.9% 250 ml @ 0.05 MCG/KG/MIN 9. 216 mls/hr IV .Q24H [facility] Rx#:[id number] Blood Product 511 310 Platelet Irr Pheresis 3 201 Acda Unit [id number] Rc Irr As1 Unit 0 0 [id number] Rc Irr As1 Unit 310 [id number] Output: Urine 528 1080 1035 Uretheral (Bess) 200 Stool 1 1 Other: Voiding Method Indwelling Catheter Indwelling Catheter Indwelling Catheter # Bowel Movements 1 1 - Exam General appearance: average body habitus, no distress, patient lethargic, weak, at bedside - EENT Eyes: anicteric sclerae, EOMI, PERRLA, no ptosis, scleral mild icterus, normal appearance ENT: hearing grossly normal, NA/AT, normal oropharynx, no thrush Ears: bilateral: normal - Neck Neck: lymphadenopathy Thyroid: bilateral: enlarged - Respiratory Respiratory: bilateral: diminished, negative: dullness, rales, rhonchi, wheezing, prolonged expiration - Cardiovascular Rhythm: regular Heart sounds: normal: S1, S2 Abnormal Heart Sounds: systolic murmur, no S3 Gallop, no S4 Gallop - Gastrointestinal General gastrointestinal: hepatomegaly, soft, splenomegaly, no tenderness, no umbilical hernia, no ventral hernia - Integumentary Integumentary: No petechiae, pale Facial flushing - Neurologic Neurologic: CNII-XII intact - Musculoskeletal Musculoskeletal: gait normal, generalized weakness - Psychiatric Psychiatric: awake, groaning, generalized weakness, no focal neural deficits. - Labs CBC & Chem 7: 05/27/19 05:38 05/27/19 05:38 Labs: Abnormal Lab Results - Last 24 Hours (Table) 05/24/19 05/26/19 05/26/19 Range/Units 10:23 14:00 18:23 WBC 0.1 L* (3.8-10.6) k/uL RBC 2.10 L (3.80-5.40) m/uL Hgb 6.6 L* (11.4-16.0) gm/dL Hct 20.2 L (34.0-46.0) % RDW 18.1 H (11.5-15.5) % Plt Count 5 L* (150-450) k/uL Retic Count (0.5-2.0) % PT (9.0-12.0) sec INR (<1.2) APTT (22.0-30.0) sec Chloride (98-107) mmol/L Carbon Dioxide (22-30) mmol/L BUN (7-17) mg/dL Creatinine (0.52-1.04) mg/dL Glucose (74-99) mg/dL POC Glucose (mg/dL) 190 H (75-99) mg/dL Plasma Lactic Acid Carloz (0.7-2.0) mmol/L Uric Acid (3.7-7.4) mg/dL Calcium (8.4-10.2) mg/dL Phosphorus (2.5-4.5) mg/dL Total Bilirubin (0.2-1.3) mg/dL ALT (4-34) U/L Total Protein (6.3-8.2) g/dL Albumin (3.5-5.0) g/dL Crossmatch See Detail 05/26/19 05/27/19 05/27/19 Range/Units 23:58 05:38 05:38 WBC 0.1 L* (3.8-10.6) k/uL RBC 2.36 L (3.80-5.40) m/uL Hgb 7.6 L (11.4-16.0) gm/dL Hct 22.2 L (34.0-46.0) % RDW 17.2 H (11.5-15.5) % Plt Count 2 L* D (150-450) k/uL Retic Count 2.1 H (0.5-2.0) % PT (9.0-12.0) sec INR (<1.2) APTT (22.0-30.0) sec Chloride 109 H (98-107) mmol/L Carbon Dioxide 20 L (22-30) mmol/L BUN 103 H* (7-17) mg/dL Creatinine 2.68 H (0.52-1.04) mg/dL Glucose 140 H (74-99) mg/dL POC Glucose (mg/dL) 168 H (75-99) mg/dL Plasma Lactic Acid Carloz (0.7-2.0) mmol/L Uric Acid 2.3 L (3.7-7.4) mg/dL Calcium 6.7 L (8.4-10.2) mg/dL Phosphorus 6.4 H (2.5-4.5) mg/dL Total Bilirubin 6.0 H (0.2-1.3) mg/dL ALT 64 H (4-34) U/L Total Protein 4.6 L (6.3-8.2) g/dL Albumin 2.3 L (3.5-5.0) g/dL Crossmatch 05/27/19 05/27/19 05/27/19 Range/Units 05:38 05:38 05:53 WBC (3.8-10.6) k/uL RBC (3.80-5.40) m/uL Hgb (11.4-16.0) gm/dL Hct (34.0-46.0) % RDW (11.5-15.5) % Plt Count (150-450) k/uL Retic Count (0.5-2.0) % PT 13.3 H (9.0-12.0) sec INR 1.3 H (<1.2) APTT 32.7 H (22.0-30.0) sec Chloride (98-107) mmol/L Carbon Dioxide (22-30) mmol/L BUN (7-17) mg/dL Creatinine (0.52-1.04) mg/dL Glucose (74-99) mg/dL POC Glucose (mg/dL) 154 H (75-99) mg/dL Plasma Lactic Acid Carloz 2.9 H* (0.7-2.0) mmol/L Uric Acid (3.7-7.4) mg/dL Calcium (8.4-10.2) mg/dL Phosphorus (2.5-4.5) mg/dL Total Bilirubin (0.2-1.3) mg/dL ALT (4-34) U/L Total Protein (6.3-8.2) g/dL Albumin (3.5-5.0) g/dL Crossmatch 05/27/19 Range/Units 11:29 WBC (3.8-10.6) k/uL RBC (3.80-5.40) m/uL Hgb (11.4-16.0) gm/dL Hct (34.0-46.0) % RDW (11.5-15.5) % Plt Count (150-450) k/uL Retic Count (0.5-2.0) % PT (9.0-12.0) sec INR (<1.2) APTT (22.0-30.0) sec Chloride (98-107) mmol/L Carbon Dioxide (22-30) mmol/L BUN (7-17) mg/dL Creatinine (0.52-1.04) mg/dL Glucose (74-99) mg/dL POC Glucose (mg/dL) 153 H (75-99) mg/dL Plasma Lactic Acid Carloz (0.7-2.0) mmol/L Uric Acid (3.7-7.4) mg/dL Calcium (8.4-10.2) mg/dL Phosphorus (2.5-4.5) mg/dL Total Bilirubin (0.2-1.3) mg/dL ALT (4-34) U/L Total Protein (6.3-8.2) g/dL Albumin (3.5-5.0) g/dL Crossmatch Microbiology - Last 24 Hours (Table) 05/25/19 17:18 Blood Culture - Preliminary Blood No Growth after 24 hours 05/24/19 11:45 Blood Culture Gram Stain - Final Blood Blood Culture - Final Klebsiella oxytoca Assessment and Plan Plan: 1. Neutropenic sepsis with lactic acidosis and septic shock. Patient will be admitted to the intensive care unit, consult with inside sales account representative and oncology. Patient is status post dexamethasone and gammaglobulin. Cefepime 2 g every 24 hours, vancomycin. Patient requires vasopressors. Continue 40 mg IV every 12 hours. 2. Pancytopenia secondary to lymphoma and chemotherapy. Status post transfusion total of 3 units units packed RBCs and 1 unit of platelets. Patient is scheduled for 2 more units of platelets today. 3. Acute kidney injury. Avoid nephrotoxic agents. Consult with nephrology appreciated. Patient is start bicarb drip. 4. Elevated troponin. 5. T-cell lymphoma CD30 positive, status post chemotherapy. Oncology consult appreciated. IV Decadron, Elitek x1. 6. History of hypertension and hypertensive cardio vascular disease currently hypotensive. 7. Diabetes mellitus type 2. New onset. Discontinue metformin. Continue NovoLog scale. 8. Hyperlipidemia. Off statin. 9. Hypothyroidism. Continue levothyroxine transitioned to IV 25 g daily. Home dose is 50 g daily. 10. History of tumor lysis syndrome. 11. Diverticulosis. Colonoscopy is up-to-date. 12. Recurrent depression. Currently on Effexor XR 75 mg orally once every day. 13. Hepatocellular disease. Status post vitamin K. 14. Moderate to severe protein malnutrition DVT prophylaxis. Bilateral knee- high THA hose. 15. GI prophylaxis. Start Protonix 40 mg IV twice daily. 16. DVT prophylaxis. No heparin due to thrombocytopenia. 17. Klebsiella bacteremia, present on admission. Consult with Dr. Corral appreciated. Continue cefepime. 18. Infectious and metabolic encephalopathy, present on admission, gradually worsening. Continue close monitoring in the intensive care unit 19. Generalized anasarca and ascites. Albumin 4 doses. Patient is full code. 20. Possible acute GI bleed. Consult with GI. 21. New onset A fib with RVR, paroxysmal afib. Cardiology consult appreciated. Patient started on amiodaraone bolus and gtt. Prognosis: Guarded Discharge plan: Home with VNA in the past, to be determined Impression and plan of care have been directed as dictated by the signing physician. Verito Veloz nurse practitioner acting as scribe for signing physician.
--- NOTE | 2019-05-27 18:49 | P.PN ---
Subjective Progress Note Date: 05/27/19 Principal diagnosis: Blood per rectum, pancytopenia Patient seen lying in bed. No nausea or vomiting per nursing staff. No hematemesis. Patient has had 2 further small bloody bowel movements. Objective - Vital Signs Vital signs: Vital Signs Temp 36.4 F L 05/27/19 08:00 Pulse 116 H 05/27/19 11:15 Resp 27 H 05/27/19 11:15 BP 113/54 05/27/19 11:15 Pulse Ox 94 L 05/27/19 11:15 Intake & Output 05/26/19 05/27/19 05/27/19 18:59 06:59 18:59 Intake Total 0714.172 8800.778 572.423 Output Total 528 1081 611 Balance 1438.899 592.778 -38.577 Weight 109.9 kg Intake: IV 1450 1255 550 Albumin Human 25% 50 ml 50 In Empty Bag 1 bag @ 50 mls/hr IVPB Q12H [facility] Rx#: [id number] Cefepime 2 gm In Sodium 100 Chloride 0.9% 100 ml @ 200 mls/hr IVPB Q24H [facility] Rx#:[id number] Dexamethasone Sod 50 50 Phosphate 40 mg In Dextrose 5% in Water 50 ml @ 100 mls/hr IV DAILY [facility] Rx#:[id number] Dextrose 5% in Water 1, 900 350 000 ml @ 75 mls/hr IV . [id number] ONE with Sodium Bicarb (1 Meq/ml) 150 ml Rx#:[id number] Dextrose 5% in Water 1, 225 300 000 ml @ 75 mls/hr IV . [id number] [facility] with Sodium Bicarb (1 Meq/ml) 150 ml Rx#:[id number] Empty Bag 16.672 bag @ 100 504 mls/hr IV .Q12M ONE with Human Prothrombin Complx 2,604 unit Rx#: [id number] Phytonadione 5 mg In 50 Sodium Chloride 0.9% 50 ml @ 100 mls/hr IVPB ONCE STA Rx#:[id number] Sodium Chloride 0.9% 1, 400 480 200 000 ml @ 40 mls/hr IV . Q24H [facility] Rx#:[id number] Intake, IV Titration 5.899 108.778 22.423 Amount Norepinephrine 8 mg In 5.899 108.778 22.423 Sodium Chloride 0.9% 250 ml @ 0.05 MCG/KG/MIN 9. 216 mls/hr IV .Q24H [facility] Rx#:[id number] Blood Product 511 310 Platelet Irr Pheresis 3 201 Acda Unit [id number] Rc Irr As1 Unit 0 0 [id number] Rc Irr As1 Unit 310 [id number] Output: Urine 528 1080 610 Uretheral (Bess) 100 Stool 1 1 Other: Voiding Method Indwelling Catheter Indwelling Catheter Indwelling Catheter # Bowel Movements 1 1 - Exam On physical examination, patient appears comfortable in no apparent distress, but does appear uncomfortable. HEAD: Normocephalic, atraumatic. EYES: No scleral icterus. No conjunctival injection. MOUTH: No lesions, tongue midline. NECK: Trachea midline, no gross abnormalities. CHEST: No respiratory distress. ABDOMEN: Soft, obese. Bowel sounds are positive. No organomegaly. No guarding or rigidity. SKIN: No rashes, no jaundice. - Labs CBC & Chem 7: 05/27/19 05:38 05/27/19 05:38 Labs: Abnormal Lab Results - Last 24 Hours (Table) 05/24/19 05/26/19 05/26/19 Range/Units 10:23 12:14 14:00 WBC 0.1 L* (3.8-10.6) k/uL RBC 2.10 L (3.80-5.40) m/uL Hgb 6.6 L* (11.4-16.0) gm/dL Hct 20.2 L (34.0-46.0) % RDW 18.1 H (11.5-15.5) % Plt Count 5 L* (150-450) k/uL Retic Count (0.5-2.0) % PT (9.0-12.0) sec INR (<1.2) APTT (22.0-30.0) sec Chloride (98-107) mmol/L Carbon Dioxide (22-30) mmol/L BUN (7-17) mg/dL Creatinine (0.52-1.04) mg/dL Glucose (74-99) mg/dL POC Glucose (mg/dL) 227 H (75-99) mg/dL Plasma Lactic Acid Carloz (0.7-2.0) mmol/L Uric Acid (3.7-7.4) mg/dL Calcium (8.4-10.2) mg/dL Phosphorus (2.5-4.5) mg/dL Total Bilirubin (0.2-1.3) mg/dL ALT (4-34) U/L Total Protein (6.3-8.2) g/dL Albumin (3.5-5.0) g/dL Crossmatch See Detail 05/26/19 05/26/19 05/27/19 Range/Units 18:23 23:58 05:38 WBC 0.1 L* (3.8-10.6) k/uL RBC 2.36 L (3.80-5.40) m/uL Hgb 7.6 L (11.4-16.0) gm/dL Hct 22.2 L (34.0-46.0) % RDW 17.2 H (11.5-15.5) % Plt Count 2 L* D (150-450) k/uL Retic Count 2.1 H (0.5-2.0) % PT (9.0-12.0) sec INR (<1.2) APTT (22.0-30.0) sec Chloride (98-107) mmol/L Carbon Dioxide (22-30) mmol/L BUN (7-17) mg/dL Creatinine (0.52-1.04) mg/dL Glucose (74-99) mg/dL POC Glucose (mg/dL) 190 H 168 H (75-99) mg/dL Plasma Lactic Acid Carloz (0.7-2.0) mmol/L Uric Acid (3.7-7.4) mg/dL Calcium (8.4-10.2) mg/dL Phosphorus (2.5-4.5) mg/dL Total Bilirubin (0.2-1.3) mg/dL ALT (4-34) U/L Total Protein (6.3-8.2) g/dL Albumin (3.5-5.0) g/dL Crossmatch 05/27/19 05/27/19 05/27/19 Range/Units 05:38 05:38 05:38 WBC (3.8-10.6) k/uL RBC (3.80-5.40) m/uL Hgb (11.4-16.0) gm/dL Hct (34.0-46.0) % RDW (11.5-15.5) % Plt Count (150-450) k/uL Retic Count (0.5-2.0) % PT 13.3 H (9.0-12.0) sec INR 1.3 H (<1.2) APTT 32.7 H (22.0-30.0) sec Chloride 109 H (98-107) mmol/L Carbon Dioxide 20 L (22-30) mmol/L BUN 103 H* (7-17) mg/dL Creatinine 2.68 H (0.52-1.04) mg/dL Glucose 140 H (74-99) mg/dL POC Glucose (mg/dL) (75-99) mg/dL Plasma Lactic Acid Carloz 2.9 H* (0.7-2.0) mmol/L Uric Acid 2.3 L (3.7-7.4) mg/dL Calcium 6.7 L (8.4-10.2) mg/dL Phosphorus 6.4 H (2.5-4.5) mg/dL Total Bilirubin 6.0 H (0.2-1.3) mg/dL ALT 64 H (4-34) U/L Total Protein 4.6 L (6.3-8.2) g/dL Albumin 2.3 L (3.5-5.0) g/dL Crossmatch 05/27/19 05/27/19 Range/Units 05:53 11:29 WBC (3.8-10.6) k/uL RBC (3.80-5.40) m/uL Hgb (11.4-16.0) gm/dL Hct (34.0-46.0) % RDW (11.5-15.5) % Plt Count (150-450) k/uL Retic Count (0.5-2.0) % PT (9.0-12.0) sec INR (<1.2) APTT (22.0-30.0) sec Chloride (98-107) mmol/L Carbon Dioxide (22-30) mmol/L BUN (7-17) mg/dL Creatinine (0.52-1.04) mg/dL Glucose (74-99) mg/dL POC Glucose (mg/dL) 154 H 153 H (75-99) mg/dL Plasma Lactic Acid Carloz (0.7-2.0) mmol/L Uric Acid (3.7-7.4) mg/dL Calcium (8.4-10.2) mg/dL Phosphorus (2.5-4.5) mg/dL Total Bilirubin (0.2-1.3) mg/dL ALT (4-34) U/L Total Protein (6.3-8.2) g/dL Albumin (3.5-5.0) g/dL Crossmatch Microbiology - Last 24 Hours (Table) 05/25/19 17:18 Blood Culture - Preliminary Blood No Growth after 24 hours 05/24/19 11:45 Blood Culture Gram Stain - Final Blood Blood Culture - Final Klebsiella oxytoca Assessment and Plan (1) GI bleed Narrative/Plan: 68-year-old female with multiple medical comorbidities including angioimmunobla stic lymphoma, pancytopenia in the setting of chemotherapy admitted with weakness and currently being treated for gram-negative bacteremia and pancytopenia as well as acute elevation in her creatinine. During her hospitalization the patient had 2 bloody bowel movements while in the ICU today. Last colonoscopy in 2013 with findings of moderate left colonic diverticulosis. Unclear etiology of bleed with differential including bleeding secondary to ischemia, diverticular bleed, hemorrhoidal bleeding, or other etiology EXACERBATED by underlying thrombocytopenia. Current Visit: Yes Status: Acute Code(s): K92.2 - GASTROINTESTINAL HEMORRHAGE, UNSPECIFIED SNOMED Code(s): 57670515 (2) Pancytopenia Current Visit: Yes Status: Acute Code(s): D61.818 - OTHER PANCYTOPENIA SNOMED Code(s): 591599828 (3) Angioimmunoblastic T-cell lymphoma Current Visit: No Status: Acute Priority: High Code(s): C86.5 - ANGIOIMMUNOBLASTIC T-CELL LYMPHOMA SNOMED Code(s): 202838533 Plan: Supportive care Okay for liquid diet, advance as tolerated Continue to monitor CBC, CMP Continue monitor stool output Continue other management including antibiotic therapy, blood pressure support per ICU infectious disease service Nephrology currently monitoring for acute elevation in creatinine Defer management of pancytopenia to oncology service at this time Given the patient's severe pancytopenia she is not a candidate for endoscopic evaluation at this time, continue supportive care Thank you for this patient in the care of the patient we will continue to follow
[2019-05-27] MEDS: VENLAFAXINE HCL 75 MG TAB PO SCH (21:28)
[2019-05-27] MEDS: AMIODARONE 300 MG in DEXTROSE 5% IN WATER 250 ML IV SCH ×2 (21:46)
--- NOTE | 2019-05-27 23:20 | PN ---
PROGRESS NOTE DATE OF SERVICE: 05/27/2019 REASON FOR FOLLOWUP: Klebsiella bacteremia. INTERVAL HISTORY: The patient is currently afebrile. The patient is currently off the pressor support. The patient felt stable slightly restless, but no chest pain. No vomiting or diarrhea is reported. On examination, blood pressure 113/57 with a pulse of 104, temperature of 98. She is 95% on 3 L nasal cannula. General description is an elderly female lying in bed in no distress. Respiratory system: Unlabored breathing. Clear to auscultation anteriorly. Heart S1, S2. Regular rate and rhythm. Abdomen soft. No distention. No guarding. No rigidity. LABS: Hemoglobin 7.7. White count 0.1. BUN 103, creatinine is 2.68. Blood culture with Klebsiella. Follow up blood culture has been negative so far. DIAGNOSTIC IMPRESSION AND PLAN: Patient with Klebsiella bacteremia in this patient who did have a significant pancytopenia from recent . Patient's follow up blood culture has been negative. She is currently covered with cefepime. Continue to monitor clinical course closely. Continue supportive care. MMODL / IJN: [id number] /
[2019-05-27 23:59] LABS: Glucose,Whole Blood 164 mg/dL (75-99)
[2019-05-28] MEDS: INSULIN ASPART (NovoLOG) 100 UNIT/ML VIAL SQ SCH ×2 (00:13→07:30)
[2019-05-28] MEDS ORDERED: HYDROmorphone 1 MG/ML 1 ML SYRINGE IVP PRN (03:04)
[2019-05-28] MEDS: SODIUM CHLORIDE 0.9% 1,000 ML IV SCH (03:13)
[2019-05-28 05:59] LABS: Phosphorus 6.2 mg/dL (2.5-4.5); Uric Acid 2.1 mg/dL (3.7-7.4)
[2019-05-28 06:04] LABS: Glucose,Whole Blood 131 mg/dL (75-99)
[2019-05-28 06:14] LABS: INR 1.7 (<1.2); Partial Thromboplastin Time 29.9 sec (22.0-30.0); Prothrombin Time 16.7 sec (9.0-12.0)
[2019-05-28 06:15] LABS: Calcium 6.3 mg/dL (8.4-10.2)
[2019-05-28 06:42] LABS: Anisocytosis Slight; HCT 20.1 % (34.0-46.0); Hypochromasia Slight; MCH 31.7 pg (25.0-35.0); MCHC 33.1 g/dL (31.0-37.0); MCV 95.7 fL (80.0-100.0); Macrocytosis Slight; Mean Platelet Volume 9.8; Poikilocytosis Slight; RDW 17.8 % (11.5-15.5); Reticulocyte % 1.8 % (0.5-2.0)
[2019-05-28 06:58] LABS: WBC 0.2 k/uL (3.8-10.6)
[2019-05-28 07:00] LABS: HGB 6.7 gm/dL (11.4-16.0)
[2019-05-28 07:01] LABS: Platelet Count 6 k/uL (150-450)
[2019-05-28] MEDS: DEXTROSE 5% IN WATER 1,000 ML with SODIUM BICARB (1 MEQ/ML) 150 ML IV SCH (07:30)
[2019-05-28] MEDS: LEVOTHYROXINE IVP 100 MCG/5 ML VIAL IV SCH (08:19)
[2019-05-28] MEDS: PANTOPRAZOLE 40 MG/10 ML VIAL IV SCH (08:20)
[2019-05-28] MEDS: FUROSEMIDE 10 MG/ML 4 ML VIAL IV SCH (08:20)
[2019-05-28] MEDS: AMIODARONE 300 MG in DEXTROSE 5% IN WATER 250 ML IV SCH ×2 (08:40)
[2019-05-28] MEDS: WATER IV SCH ×2 (08:47)
[2019-05-28] MEDS: DEXAMETHASONE SOD PHOSPHATE IV SCH ×2 (08:47)
[2019-05-28] MEDS: DEXTROSE 5% IV SCH ×2 (08:47)
[2019-05-28] MEDS: NOREPINEPHRINE 8 MG in SODIUM CHLORIDE 0.9% 250 ML IV SCH (09:00)
[2019-05-28] MEDS ORDERED: MORPHINE SULFATE 4 MG/ML SYRINGE IVP ONE (10:19)
[2019-05-28] MEDS ORDERED: LORazepam 2 MG/ML INJ IV PRN (10:22)
[2019-05-28] MEDS ORDERED: MORPHINE SULFATE (100 MG/2 ML) 100 MG in SODIUM CHLORIDE 0.9% 100 ML IV SCH ×2 (10:30→10:45)
[2019-05-28] MEDS ORDERED: SCOPOLAMINE 1.5MG/72HR PATCH TRANSDERM SCH (10:30)
--- NOTE | 2019-05-28 10:53 | P.DS ---
Providers Date of admission: 05/24/19 12:14 Attending physician: Tish Adair Consults: 05/24/19 11:40 Consult Physician Routine Consulting Provider: Derek Beltran Consult Reason/Comments: pancytopenia Do you want consulting provider notified?: Already Contacted 05/24/19 11:42 Consult Physician Routine Consulting Provider: Rohan Byrd Consult Reason/Comments: icu patient Do you want consulting provider notified?: Yes 05/25/19 09:45 Consult Physician Routine Consulting Provider: Acacia Soto Consult Reason/Comments: KRYSTYNA Do you want consulting provider notified?: Yes 05/25/19 12:16 Consult Physician Routine Consulting Provider: Tressa Corral Consult Reason/Comments: bacteremia Do you want consulting provider notified?: Yes 05/27/19 14:28 Consult Physician Routine Consulting Provider: Fortino Palumbo Consult Reason/Comments: tachycardia Do you want consulting provider notified?: Already Contacted Primary care physician: Messi Gaffney [place] [facility] Course: This is 68 years old female, 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 Patient Condition at Discharge: Critical Plan - Discharge Summary Discharge Rx Participant: No New Discharge Prescriptions: No Action Levothyroxine Sodium [Levoxyl] 50 mcg PO DAILY Venlafaxine HCl [Effexor] 75 mg PO HS Ibuprofen [Motrin] 800 mg PO TID PRN PRN Reason: Pain Loratadine [Claritin] 10 mg PO DAILY Spironolactone [Aldactone] 25 mg PO DAILY #30 tab Melatonin 6 mg PO HS PRN tablet PRN Reason: insomnia Nystatin 100,000 Unit/ml Susp [Mycostatin Oral Susp] 5 ml PO 5XD #45 cup sitaGLIPtin PHOSPHATE [Januvia] 50 mg PO DAILY #30 tab Furosemide [Lasix] 40 mg PO BID #60 tablet metFORMIN HCL 1,000 mg PO BID #60 tab Lidocaine Viscous [Xylocaine Viscous 2%] 30 ml PO 5XD #45 dose Fexofenadine/Pseudoephedrine [Marimar-D 12 Hour Tablet] 1 tab PO BID PRN PRN Reason: Allergy Symptoms predniSONE 100 mg PO DIRECTED Lidocaine-Prilocaine Cream [Emla Cream 2.5%/2.5%] 1 applic TOPICAL DAILY PRN PRN Reason: PORT ACCESS Discharge Medication List Levothyroxine Sodium [Levoxyl] 50 mcg PO DAILY 04/03/19 [History] Ibuprofen [Motrin] 800 mg PO TID PRN 04/19/19 [History] Venlafaxine HCl [Effexor] 75 mg PO HS 04/19/19 [History] Loratadine [Claritin] 10 mg PO DAILY 05/03/19 [History] Furosemide [Lasix] 40 mg PO BID #60 tablet 05/12/19 [Rx] Melatonin 6 mg PO HS PRN tablet 05/12/19 [Rx] Nystatin 100,000 Unit/ml Susp [Mycostatin Oral Susp] 5 ml PO 5XD #45 cup 05/12/19 [Rx] Spironolactone [Aldactone] 25 mg PO DAILY #30 tab 05/12/19 [Rx] metFORMIN HCL 1,000 mg PO BID #60 tab 05/12/19 [Rx] sitaGLIPtin PHOSPHATE [Januvia] 50 mg PO DAILY #30 tab 05/12/19 [Rx] Lidocaine Viscous [Xylocaine Viscous 2%] 30 ml PO 5XD #45 dose 05/13/19 [Rx] Fexofenadine/Pseudoephedrine [Marimar-D 12 Hour Tablet] 1 tab PO BID PRN 05/24/19 [History] Lidocaine-Prilocaine Cream [Emla Cream 2.5%/2.5%] 1 applic TOPICAL DAILY PRN 05/24/19 [History] predniSONE 100 mg PO DIRECTED 05/24/19 [History] Follow up Appointment(s)/Referral(s): Messi Gaffney MD [Primary Care Provider] - 1-2 days [facility] Visiting Nurse, [NON-STAFF] - 1-2 Days
[2019-05-28 12:42] VITALS: TEMP 97.5
[2019-05-28 14:07] VITALS: BP 92/47
--- NOTE | 2019-05-28 14:17 | PN ---
PROGRESS NOTE DATE OF SERVICE: May 28, 2019. Mariela is seen today as a followup. She has been in ICU. She is extremely lethargic. She still has intermittent melanotic stool and she has generalized petechiae. She is very uncomfortable and she was in pain and she appeared to be in pain. Her overall condition has been very poorly. I did have a long discussion with the patient's family. Her overall prognosis is very poor. 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 At this point in time, comfort care is very appropriate. They are agreeable to proceed with it. Also I discussed her care with Dr. Odell. The patient is being started on morphine drip to try to keep her comfortable. MMODL / IJN: [id number] /
--- NOTE | 2019-05-28 14:47 | P.PN ---
Subjective Progress Note Date: 05/28/19 Principal diagnosis: Septic shock, gram-negative bacteremia, neutropenic sepsis This is a 68-year-old female familiar to my service from her last admission. Patient is known to have history of angioimmunoblastic T-cell lymphoma, receiving chemotherapy by oncology/Dr. Gonzalez. Patient was recently admitted to the hospital with chemotherapy induced pancytopenia and neutropenic fever and sepsis. She was in the hospital for almost 2 weeks. And she was eventually discharged home and advised to follow up with oncology. Since discharge, the patient received again chemotherapy, and her last chemotherapy was last Wednesday. Since Wednesday the patient has been complaining of abdominal pain, weakness, loose stools, and noted her breathing was a bit labored. Patient felt generally weak, unable to get out of bed. She was supposed to see her oncologist today, however considering her multiple constitutional symptoms, patient decided to come to the ER. Patient was felt to have WBC count of 0.1 hemoglobin 6.2 platelets 15 lactic acid 11.6 creatinine 1.79 total bilirubin of 4.3 LDH 280. And she was noted to be hypotensive requiring fluid boluses, and after 3 L of fluids, tamire nt was placed on norepinephrine to be titrated accordingly and possibly will add vasopressin if needed. Chest x-ray showed no evidence of pneumonia. It did show evidence of cardiomegaly and mild left basilar atelectasis. Patient was given broad-spectrum antibiotics by the ER physician including vancomycin and cefepime. And she was admitted to the ICU with the impression of sepsis and septic shock. I evaluated the patient in the ICU, recommended more fluids to be given, reviewed her antibiotics. And I recommended pressors starting with norepinephrine, and to add vasopressin if needed. Patient was on 2 L nasal cannula, O2 saturation was 94%. Blood pressure was 77/44 with a mean of 55. Respiration 25, and heart rate was 125 Reevaluated today on 05/25/2019, patient remains in the intensive care unit, patient is requiring norepinephrine for marginal blood pressure. She is also on vasopressin at 0.03 units per minutes. Being titrated to a mean of 65. Her blood cultures came back positive for gram-negative rods. Final report is pending. Renal functioning seems to be worsening, and she was seen by nephrology on consultation. Her IV fluids was adjusted, and placed on sodium b icarb drip. IV fluid at present is 0.9 normal saline at 75 mL per hour. Her pulmonary status is marginal, however the patient is not clinically ready for intubation and mechanical ventilation. That will likely happen, but at this point she seems to be holding fairly well. Chest x-ray showed pleural parenchymal changes, and mild interstitial edema bilaterally. Patient is still receiving diuretics. Nephrology on the case. Labs were reviewed, continues to have pancytopenia that instead of 0.1 hemoglobin is 5.9 platelets are 3000. Patient is to receive blood and platelets, and she is to be seen by oncology/hematology on the case. Antibiotics campbell, patient remains on vancomycin and cefepime, and she is yet to be seen by infectious disease on consultation. Ultrasound of the abdomen showed mild ascites, not significant enough to consider paracentesis, and her renal ultrasound showed no evidence of hydronephrosis. BUN today is 72 creatinine is 2.22 Reevaluated today on 05/26/2019, patient remains in the ICU, basically about the same. Vancomycin has been discontinued by infectious disease, patient remains on cefepime for her gram-negative bacteremia. Overall the patient is basically about the same, remains on 3 L nasal cannula, O2 saturation is ranging between 94-96%. Lipid more tachypneic today compared to yesterday. Lasix will be given. Patient is developing worsening ascites, chest x-ray is a bit worse with worsening bilateral pleural effusions and atelectasis. Hence I have recommended Lasix to be given today. Continues to have pancytopenia, WBC count is 0.1 hem oglobin is 5.7 platelets remained low at 6000. INR is 1.9. Bicarb is a bit low at 17. And that is being addressed by nephrology on the case. Renal functioning is a bit worse with a BUN of 92 creatinine 2.42. Reevaluated today on 05/27/2019, patient remains in the ICU, being followed by many consultants. Basically about the same, continues to have pancytopenia. Patient received so far4 units of packed RBCs, and 2 units of platelets. Her hemoglobin today is 7.6, and her platelet count is 2000. Hematology is addressing the issue of her blood transfusion. Renal functioning seems to be getting a bit worse, patient continues to have excellent urine output, being followed by nephrology, and she remains on bicarb drip. Patient is comfortable, she is on few liters nasal cannula, O2 saturations 95%. However she seems to be moaning and groaning continuously. But denies being in pain, denies being short of breath. Denies any nausea vomiting.WBC count remains 0.1. Electrolytes are normal BUN is 103 creatinine is 2.68.urine output seems to be improving, he is on diuretics. And she is being followed by nephrology. Patient was reevaluated today on 05/28/2019, her clinical condition has been deteriorating over the last few days, apparently family discussed her condition with the oncologist on the case yesterday, and felt that her condition is terminal, family requested comfort care measures. Patient is now on morphine drip. And family is preferring mostly comfort care. Primary service evaluated the patient and ordered the comfort care measures. Labs from today were review ed WBC count is 0.2 hemoglobin 6.7 platelets are 6000. Renal functioning is worsening with BUN of 112 creatinine 2.41 Objective - Vital Signs Vital signs: Vital Signs Temp 97.5 F L 05/28/19 08:00 Pulse 100 05/28/19 14:00 Resp 18 05/28/19 14:00 BP 92/47 05/28/19 14:00 Pulse Ox 94 L 05/28/19 14:00 Intake & Output 05/27/19 05/28/19 05/28/19 18:59 06:59 18:59 Intake Total 0816.516 9954.54 927.184 Output Total 1631 387 345 Balance 125.548 4607.54 582.184 Weight 109.9 kg 113.2 kg Intake: IV 1305 1596.54 671.66 Amiodarone 300 mg In 149.88 116.66 Dextrose 5% in Water 250 ml @ 0.5 MG/MIN 25 mls/hr IV .Q10H [facility]I Rx#: [id number] Amiodarone 360 mg In 66.66 Dextrose 5% in Water 200 ml @ 1 MG/MIN 33.333 mls/ hr IV .Q6H ONE Rx#: [id number] Cefepime 2 gm In Sodium 100 Chloride 0.9% 100 ml @ 200 mls/hr IVPB Q24H [facility] Rx#:[id number] Dexamethasone Sod 50 50 Phosphate 40 mg In Dextrose 5% in Water 50 ml @ 100 mls/hr IV DAILY [facility] Rx#:[id number] Dextrose 5% in Water 1, 675 900 225 000 ml @ 75 mls/hr IV . [id number] [facility]I with Sodium Bicarb (1 Meq/ml) 150 ml Rx#:[id number] Sodium Chloride 0.9% 1, 480 480 280 000 ml @ 40 mls/hr IV . Q24H [facility] Rx#:[id number] Intake, IV Titration 22.423 255.524 Amount Amiodarone 300 mg In 250 Dextrose 5% in Water 250 ml @ 0.5 MG/MIN 25 mls/hr IV .Q10H [facility] Rx#: [id number] Norepinephrine 8 mg In 22.423 5.524 Sodium Chloride 0.9% 250 ml @ 0.05 MCG/KG/MIN 9. 216 mls/hr IV .Q24H [facility] Rx#:[id number] Blood Product 518 Platelet Irr Pheresis 204 Acda1 Unit [id number] Platelet Irr Pheresis 314 Acda1 Unit [id number] Output: Urine 1630 387 345 Uretheral (Bess) 300 80 Stool 1 Other: Voiding Method Indwelling Catheter Indwelling Catheter Indwelling Catheter - Exam General appearance: Revealed a 68-year-old female, comfortable, on morphine drip. Head exam: Atraumatic, normocephalic. Eye exam: . PERRLA, EOMI, minimal icterus noted. ENT exam: Dry mucous membranes otherwise unremarkable. Neck exam: Positive right posterior cervical lymphadenopathy noted. Respiratory exam: Diminished breath sounds at the bases no rhonchi and no wheezes Cardiovascular Exam: Normal S1 and S2, no S3 gallop, no murmur. GI/Abdominal exam: obese,Soft nontender no megaly no rebound no guarding. Positive ascites. Extremities exam: 3+ bipedal edema, good pulses bilaterally. Neurological exam: Unresponsive, patient is on morphine drip Skin exam: No clubbing 3+ bipedal edema no cyanosis. - Labs CBC & Chem 7: 05/28/19 06:22 05/28/19 05:29 Labs: Abnormal Lab Results - Last 24 Hours (Table) 05/27/19 05/27/19 05/28/19 Range/Units 17:02 23:57 05:29 WBC (3.8-10.6) k/uL RBC (3.80-5.40) m/uL Hgb (11.4-16.0) gm/dL Hct (34.0-46.0) % RDW (11.5-15.5) % Plt Count (150-450) k/uL PT 16.7 H (9.0-12.0) sec INR 1.7 H (<1.2) Chloride (98-107) mmol/L Carbon Dioxide (22-30) mmol/L BUN (7-17) mg/dL Creatinine (0.52-1.04) mg/dL Glucose (74-99) mg/dL POC Glucose (mg/dL) 142 H 164 H (75-99) mg/dL Uric Acid (3.7-7.4) mg/dL Calcium (8.4-10.2) mg/dL Phosphorus (2.5-4.5) mg/dL 05/28/19 05/28/19 05/28/19 Range/Units 05:29 06:02 06:22 WBC 0.2 L* (3.8-10.6) k/uL RBC 2.10 L (3.80-5.40) m/uL Hgb 6.7 L* (11.4-16.0) gm/dL Hct 20.1 L (34.0-46.0) % RDW 17.8 H (11.5-15.5) % Plt Count 6 L* D (150-450) k/uL PT (9.0-12.0) sec INR (<1.2) Chloride 109 H (98-107) mmol/L Carbon Dioxide 20 L (22-30) mmol/L BUN 112 H* (7-17) mg/dL Creatinine 2.41 H (0.52-1.04) mg/dL Glucose 119 H (74-99) mg/dL POC Glucose (mg/dL) 131 H (75-99) mg/dL Uric Acid 2.1 L (3.7-7.4) mg/dL Calcium 6.3 L* (8.4-10.2) mg/dL Phosphorus 6.2 H (2.5-4.5) mg/dL Microbiology - Last 24 Hours (Table) 05/27/19 11:31 Blood Culture - Preliminary Blood No Growth after 24 hours 05/25/19 17:18 Blood Culture - Preliminary Blood No Growth after 48 hours Assessment and Plan Assessment: Impression: Septic shock, gram-negative bacteremia,/Klebsiella oxytoca, neutropenic sepsis with lactic acidosis, hypotension requiring pressors, and acute kidney injury. Pancytopenia secondary to chemotherapy/chemotherapy-induced Acute kidney injury T-cell lymphoma History of hemolytic anemia Type 2 diabetes History of hypertension Hypothyroidism History of tumor lysis syndrome Recurrent ascites and hepatocellular liver disease with jaundice lower GI bleeding, being addressed by gastroenterology on the case Recommendation: Agree with comfort care measures. We will see when necessary. Time with Patient: Less than 30
[2019-05-29 03:27] VITALS: PULSE 69
[2019-05-29 04:23] VITALS: RESP 0
--- NOTE | 2019-05-31 16:01 | CDI ---
Documentation Clarification Form Date: 05/31/2019 From: Priscilla JONAS,CCDS,RN Admit Date: 05/24/2019 12:14:00 PM Patient Name: Mariela Galvan Visit Number: [id number] Discharge Date: 05/29/2019 06:43:00 AM ATTENTION: The Clinical Documentation Specialists (CDI) and [facility] Coding Staff appreciate your assistance in clarifying documentation. Please respond to the clarification below the line at the bottom and electronically sign. The CDI & [facility] Coding staff will review the response and follow-up if needed. Please note: Queries are made part of the Legal Health Record. If you have any questions, please contact the author of this message via ITS. Dr. Modesta Odell Conflicting documentation has been found in the medical record. History/Risk Factors: HTN and HTN cardiovascular disease, HLD, DM2, Moderate to severe Protein calorie Malnutrition, Angioimmunoblastic T-Cell Lymphoma with hx of TLS and hemolytic anemia, malignant ascites admitted with neutropenic sepsis and severe pancytopenia. Required pressors and Fluid boluses for Septic Shock , ATN & GIB. Clinical Indicators: PN 05/26:ICU Chest xray is a bit worse with worsening pleural effusion and atelectasis, hence I have recommended Lasix be given today. 05/27/2019 Cardiology consult notes no hx of CHF, CAD or Cardiac arrhythmias, Echo performed in Apr 2019 revealed normal LV function without significant valvular abnormalities. PN 05/27 Nephrology notes CHF Maintain IV lasix every 12 hrs because of the congestive heart failure and BP is maintained Edema reported LE as mild to 3 plus bipedal PN 05/26:ICU VS 05/27: HR 116 RR 29 Pulse OX 95 on 2-3 lnc Lungs 05/27 per attending : bilateral diminished, negative : dullness, rales, rhonchi, wheezing or prolonged expiration. Heart Sounds: systolic murmur, no S3 or S4 gallop Chest Xray 05/26 heart is enlarged and there is bilateral pleural effusions consolidation, Diffuse interstial pattern is noted. Impression: bilateral pleural parenchymal changes correlate for CHF otherwise consider Pneumonia. Consult: 05/27 Cardiology: Afib with RVR, multiple organ failure with septic shock Treatment.IV lasix, Amiodarone gtt for Afib, 2 units packed RBCs and 3 of plts, Cefepime and Vancomycin for Gram negative sepsis, supplemental O2, In your opinion, what is the most clinically appropriate diagnosis for this patient? Acute Diastolic CHF Acute Systolic CHF Acute Pulmonary edema with CHF ruled out Pneumonia (please specify if known) Other explanation of clinical findings (please specify) Unable to determine (no explanation for clinical findings) (Last Revision: August 2017) ACUTE DIASTOLIC HEART FAILURE MTDD
== END 2019-05-29 06:43 | disposition expired | DRG 871 ==
LOC: EC 09:50 → 2SICU 12:14
PROVIDERS: ADMIT Family Medicine; ATTEND Family Medicine
PROC: 05HD33Z Insertion of Infusion Device into Right Cephalic Vein, Percutaneous Approach (ICD-10-PCS; 2019-05-24)
PROC: 30233N1 Transfusion of Nonautologous Red Blood Cells into Peripheral Vein, Percutaneous Approach (ICD-10-PCS; principal; 2019-05-24 12:25)
PROC: 30233R1 Transfusion of Nonautologous Platelets into Peripheral Vein, Percutaneous Approach (ICD-10-PCS; 2019-05-25)
DX: A41.59 Other Gram-negative sepsis (principal); D61.810 Antineoplastic chemotherapy induced pancytopenia; K57.31 Diverticulosis of large intestine without perforation or abscess with bleeding; N17.0 Acute kidney failure with tubular necrosis; R65.21 Severe sepsis with septic shock; G93.41 Metabolic encephalopathy; E43 Unspecified severe protein-calorie malnutrition; I50.31 Acute diastolic (congestive) heart failure; C86.5 Angioimmunoblastic T-cell lymphoma; D68.9 Coagulation defect, unspecified; D59.9 Acquired hemolytic anemia, unspecified; E87.2 Acidosis; F33.9 Major depressive disorder, recurrent, unspecified; I48.92 Unspecified atrial flutter; J98.11 Atelectasis; K55.9 Vascular disorder of intestine, unspecified; R18.0 Malignant ascites; Z68.41 Body mass index [BMI] 40.0-44.9, adult; Z51.5 Encounter for palliative care; Z66 Do not resuscitate; E11.9 Type 2 diabetes mellitus without complications; I48.0 Paroxysmal atrial fibrillation; D70.3 Neutropenia due to infection; E83.39 Other disorders of phosphorus metabolism; E83.51 Hypocalcemia; I11.0 Hypertensive heart disease with heart failure; E03.9 Hypothyroidism, unspecified; E78.5 Hyperlipidemia, unspecified; E83.42 Hypomagnesemia; E86.0 Dehydration; E87.5 Hyperkalemia; K64.9 Unspecified hemorrhoids; T45.1X5A Adverse effect of antineoplastic and immunosuppressive drugs, initial encounter; H11.30 Conjunctival hemorrhage, unspecified eye; K76.9 Liver disease, unspecified; Z79.84 Long term (current) use of oral hypoglycemic drugs; Z79.890 Hormone replacement therapy; Z79.899 Other long term (current) drug therapy; Z79.52 Long term (current) use of systemic steroids; Z90.710 Acquired absence of both cervix and uterus; Z85.3 Personal history of malignant neoplasm of breast; Z88.0 Allergy status to penicillin; Z80.0 Family history of malignant neoplasm of digestive organs; Z80.3 Family history of malignant neoplasm of breast; Z82.49 Family history of ischemic heart disease and other diseases of the circulatory system
CPT/HCPCS: 36410; 36415; 70450; 71045; 76705; 76770; 76937; 80048; 80053; 80202; 81001; 82248; 82330; 82803; 83010; 83605; 83615; 83735; 84100; 84145; 84443; 84484; 84550; 85025; 85027; 85045; 85384; 85610; 85730; 86850; 86870; 86880; 86900; 86901; 86920; 87040; 87077; 87186; 87502; 93005; 96361; 96365; 96367; 96368; 96375; 99291